=== PATIENT | female | born 1945 | race Caucasian/White ===

== ENCOUNTER 2016-08-15 18:30 | Emergency (ER) | payer MEDICARE, OTHER ==
[2016-08-15] MEDS ORDERED: IPRATROPIUM/ALBUTEROL 0.5-2.5 MG/3 ML AMPUL NEB ONE ×2 (19:26→20:21)
--- NOTE | 2016-08-15 19:31 | ER Document Report ---
ED Respiratory Problem - General Chief Complaint: Shortness Of Breath Stated Complaint: DIFFICULTY BREATHING Mode of Arrival: Ambulatory Information source: Patient TRAVEL OUTSIDE OF THE [place] IN LAST 30 DAYS: No - HPI Patient complains to provider of: Short of breath Notes: The patient arrives with complaints of shortness of breath and cough. Patient states that for the last 4-5 days she has had a deep cough and felt short of breath. Patient has a history of COPD. She denies any chest pain, but does complain of some tightness in the chest. She denies any numbness, tingling, weakness. She complains of nausea, but denies any vomiting or diarrhea. He denies any abdominal pain. She has complaints of generalized weakness and states that she has not been eating as well as normal. Patient reports having from surgery approximately 8 weeks ago, she also reports 3-1/[address] [facility] here. She denies any history of DVT or PE. She denies any active cancer history, she states that she is in remission for non-Hodgkin's lymphoma approximately 8 years ago. She is on no active cancer treatment. She is not on hormones. Patient has a history of A. fib intermittently, she is not in A. fib at this time. She is not on anticoagulants. She denies any leg pain or swelling. She denies any rashes. She denies any history of congestive heart failure. Shortness breath is worse with exertion, nothing really seems to make it better. - Related Data Allergies/Adverse Reactions: Beta-Blockers (Beta-Adrenergic Bloc Allergy (Verified 03/24/15 15:21) codeine [Codeine] Allergy (Verified 03/24/15 15:21) haloperidol [From Haldol] Allergy (Verified 03/24/15 15:21) haloperidol lactate [From Haldol] Allergy (Verified 03/24/15 15:21) Sulfa (Sulfonamide Antibiotics) Allergy (Verified 03/24/15 15:21) zolpidem tartrate [From Ambien] Allergy (Verified 03/24/15 15:21) Past Medical History - Social History Smoking Status: Unknown if Ever Smoked Chew tobacco use (# tins/day): No Frequency of alcohol use: Occasional Drug Abuse: Marijuana Family History: Reviewed & Not Pertinent - Past Medical History Cardiac Medical History: Reports: Hx Hypertension, Hx Heart Murmur Renal/ Medical History: Denies: Hx Peritoneal Dialysis GI Medical History: Reports: Hx Gastroesophageal Reflux Disease Past Surgical History: Reports: Hx Abdominal Surgery - gastric bypass. tummy tuck - Immunizations Hx Diphtheria, Pertussis, Tetanus Vaccination: Yes Review of Systems - Review of Systems -: Yes All other systems reviewed and negative Physical Exam - Vital signs Vitals: Temp Pulse Resp BP Pulse Ox 98.1 F 84 18 90/67 L 97 08/15/16 18:34 08/15/16 18:34 08/15/16 18:34 08/15/16 18:34 08/15/16 18:34 - Notes Notes: GENERAL: alert, cooperative, nontoxic, no distress. HEAD: normocephalic, atraumatic EYES: conjunctiva pink without discharge, no external redness or swelling. EARS: no external swelling, no external redness NOSE: atraumatic, no external swelling MOUTH/THROAT: mucous membranes moist and pink, posterior pharynx without erythema, swelling, exudate. No trismus or drooling. NECK: soft, supple, full range of motion, no meningismus. CHEST: no distress, fine crackles with wheezing on the left. Good air movement. Right lung appears clear at this time. CARDIAC: regular rate and rhythm, no murmur, normal capillary refill, normal pulses. Trace edema to bilateral lower extremities. ABDOMEN: Soft, nontender. BACK: full range of motion, no CVA tenderness. EXTREMITIES: full range of motion of all extremities. No redness, no swelling. NEURO: alert and oriented 3, no focal deficits, full range of motion of all extremities. PYSCH: appropriate mood, affect. Patient is cooperative. SKIN: pink, warm, dry, no rash. Course - Re-evaluation Re-evalutation: 08/15/16 20:44 Patient resting comfortably at this time. Vitals remained stable. Chest x-ray shows no acute abnormalities. Due to the patient's recent surgery as well as her 3 [address] ride and her complaints of shortness of breath without obvious findings on her x-ray, a CTA of the chest has been ordered to rule out PE or other source of her symptoms. Patient was updated with this information. We' ll continue to monitor. 08/15/16 23:53 Patient feeling well at this time. Her vitals been stable since she's been here with no hypoxia. Patient's had no chest pain. Her EKG shows no obvious abnormalities. Troponin is negative. Chest x-ray is nonacute. CT of the pulmonary artery shows no PE with signs of bronchitis and pneumonitis. Patient states that she feels well and would like to go home. She was offered admission but declined at this time. This point the patient will be discharged home on steroids and Levaquin. Follow up with her doctor at the next available appointment, sooner for worsening shortness of breath, chest pain, fever, difficulty breathing, or any further concerns. The patient's emergency department workup and current diagnosis were explained to the patient and or family. Follow-up instructions were provided. Medications if prescribed were discussed. Instructions for when to return to the emergency department including specific worrisome symptoms were discussed with the patient and/or family. - Vital Signs Vital signs: Temp Pulse Resp BP Pulse Ox 98.1 F 84 18 122/98 H 95 08/15/16 18:34 08/15/16 18:34 08/15/16 20:02 08/15/16 19:57 08/15/16 20:02 - Laboratory Result Diagrams: 08/15/16 19:05 08/15/16 19:05 Laboratory results interpreted by me: 08/15/16 08/15/16 08/15/16 19:05 19:05 19:05 Monocytes % 14.0 H Direct Bilirubin 0.5 H AST 62 H Alkaline Phosphatase 172 H NT-Pro-B Natriuret Pep 1450 H Albumin 3.2 L - Diagnostic Test Radiology reviewed: Image reviewed, Reports reviewed - Chest x-ray without acute findings. CTA of the chest shows no PE with bronchitis and atypical pneumonitis. - EKG Interpretation by Pr EKG shows normal: Sinus rhythm, ST-T Waves Rate: Normal [place]/QRS: LBBB When compared to previous EKG there are: Previous EKG unavailable Discharge - Discharge Clinical Impression: COPD exacerbation, Pneumonitis Condition: Stable Disposition: HOME, SELF-CARE Instructions: Chronic Obstructive Lung Disease ([facility]), Pneumonia ([facility]) Additional Instructions: Take medications as prescribed. Follow-up with your family doctor at the next available appointment for reevaluation. Follow-up sooner for chest pain, worsening shortness of breath, difficulty breathing, high fever, or any further concerns. Prescriptions: Levofloxacin [Levaquin 750 mg Tablet] 750 mg PO DAILY #5 tablet Prednisone 60 mg PO DAILY #15 tablet
[2016-08-15 19:33] LABS: ABSOLUTE EOSINOPHILS # (AUTO) 0.1 10^3/uL (0.0-0.6); ABSOLUTE LYMPHOCYTES (AUTO) 1.7 10^3/uL (0.5-4.7); ABSOLUTE NEUT (AUTO) 4.5 10^3/uL (1.7-8.2); BASOPHILS % (AUTO) 0.4 % (0-2); EOSINOPHILS % (AUTO) 1.6 % (0-6); HEMATOCRIT 43.7 % (36.0-47.0); HGB HCT DIFFERENCE 1.3; LYMPHOCYTES % (AUTO) 22.6 % (13-45); MEAN CORPUSCULAR HEMOGLOBIN 32.8 pg (27.0-33.4); MEAN CORPUSCULAR HGB CONC 34.2 g/dL (32.0-36.0); MEAN CORPUSCULAR VOLUME 96 fl (80-97); RED BLOOD COUNT 4.56 10^6/uL (3.72-5.28); RED CELL DISTRIBUTION WIDTH 13.8 % (11.5-14.0); SEGMENTED NEUTROPHILS % (AUTO) 61.4 % (42-78); WHITE BLOOD COUNT 7.4 10^3/uL (4.0-10.5)
[2016-08-15 19:48] LABS: ALANINE AMINOTRANSFERASE 31 U/L (9-52); ALBUMIN 3.2 g/dL (3.5-5.0); ALKALINE PHOSPHATASE 172 U/L (38-126); ANION GAP 10 (5-19); ASPARTATE AMINO TRANSFERASE 62 U/L (14-36); BILIRUBIN,DIRECT 0.5 mg/dL (0.0-0.4); BILIRUBIN,TOTAL 1.1 mg/dL (0.2-1.3); BLOOD UREA NITROGEN 18 mg/dL (7-20); CARBON DIOXIDE 29 mmol/L (22-30); CHLORIDE 101 mmol/L (98-107); CREATINE KINASE 61 U/L (30-135); GLUCOSE 94 mg/dL (75-110); POTASSIUM 3.7 mmol/L (3.6-5.0); SODIUM 139.9 mmol/L (137-145); TOTAL PROTEIN 6.5 g/dL (6.3-8.2)
[2016-08-15 19:59] LABS: CREATINE KINASE MB 1.57 ng/mL (<4.55)
[2016-08-15 20:00] LABS: TROPONIN I < 0.012 ng/mL
--- NOTE | 2016-08-15 21:20 | EKG REPORT ---
SEVERITY:- ABNORMAL ECG - SINUS OR ECTOPIC ATRIAL RHYTHM IVCD, CONSIDER ATYPICAL LBBB : Confirmed by: Jonny Hernandez MD 15-Aug-2016 21:19:56
[2016-08-15] MEDS ORDERED: LEVOFLOXACIN 750 MG TABLET PO ONE (23:51)
[2016-08-15] MEDS ORDERED: METHYLPREDNISOLONE INJ 125 MG/2 ML SDV IV ONE (23:51)
[2016-08-16 01:14] VITALS: BP 105/64
== END 2016-08-16 00:15 | disposition home or self-care (01) ==
LOC: ER 18:30
DX: J44.1 Chronic obstructive pulmonary disease with (acute) exacerbation (principal); J68.0 Bronchitis and pneumonitis due to chemicals, gases, fumes and vapors; R06.02 Shortness of breath; R05 Cough; R07.9 Chest pain, unspecified; R11.0 Nausea; R53.1 Weakness
CPT/HCPCS: 93005; 94640; 99285; 96374; 36415; 82553; 82550; 85025; 80053; 84484; 83880; 71020; 71275; 93010; J2930; A9270 ×2; J7620

== ENCOUNTER 2017-06-15 23:36 | Inpatient (IN) | payer MEDICARE, OTHER ==
[2017-06-15] MEDS ORDERED: IPRATROPIUM/ALBUTEROL 0.5-2.5 MG/3 ML AMPUL NEB ONE (23:42)
[2017-06-15] MEDS ORDERED: METHYLPREDNISOLONE INJ 125 MG/2 ML SDV IV ONE (23:45)
--- NOTE | 2017-06-15 23:45 | ER Document Report ---
ED General - General Chief Complaint: Respiratory Distress Stated Complaint: DIFFICULTY BREATHING Time Seen by Provider: 06/15/17 23:41 Notes: Patient is a 72-year-old female who presents with difficulty breathing. She has had subjective fevers at home. She has been coughing last few days. Denies to have more trouble breathing woke up her family. She was noted to have pulse ox in the 70s per the family. They placed oxygen in front of her face. Paramedics arrived her oxygen saturation was in the 60s. They placed her on CPAP. She improved greatly on the CPAP. She has a lot of tightness and wheezing throughout her lung reilly. She denies history of smoking. Unclear if she has a history of asthma. Patient admits to just some slight chest tightness. She denies any vomiting. No abdominal pain. No other complaints at this time. TRAVEL OUTSIDE OF THE [place] IN LAST 30 DAYS: No - Related Data Allergies/Adverse Reactions: Beta-Blockers (Beta-Adrenergic Bloc Allergy (Verified 06/16/17 00:23) codeine [Codeine] Allergy (Verified 06/16/17 00:23) haloperidol [From Haldol] Allergy (Verified 06/16/17 00:23) haloperidol lactate [From Haldol] Allergy (Verified 06/16/17 00:23) Sulfa (Sulfonamide Antibiotics) Allergy (Verified 06/16/17 00:23) zolpidem tartrate [From Ambien] Allergy (Verified 06/16/17 00:23) Past Medical History - Social History Smoking Status: Never Smoker Frequency of alcohol use: None Drug Abuse: None Family History: Reviewed & Not Pertinent - Past Medical History Cardiac Medical History: Reports: Hx Hypertension, Hx Heart Murmur Renal/ Medical History: Denies: Hx Peritoneal Dialysis GI Medical History: Reports: Hx Gastroesophageal Reflux Disease Past Surgical History: Reports: Hx Abdominal Surgery - gastric bypass. tummy tuck - Immunizations Hx Diphtheria, Pertussis, Tetanus Vaccination: Yes Review of Systems - Review of Systems Notes: My Normal Review Basic REVIEW OF SYSTEMS: CONSTITUTIONAL : Subjective fevers EENT: Denies eye, ear, throat, or mouth pain or symptoms. Denies nasal or sinus congestion. CARDIOVASCULAR: Chest tightness RESPIRATORY: Difficulty breathing wheezing. Cough. GASTROINTESTINAL: Denies abdominal pain. Denies nausea, vomiting, or diarrhea. Denies constipation. Last BM: MUSCULOSKELETAL: Denies neck or back pain or joint pain or swelling. SKIN: Denies rash or skin lesions. NEUROLOGICAL: Denies altered mental status or loss of consciousness. Denies headache. Denies weakness or paralysis or loss of use of either side. Denies problems with gait or speech. Denies sensory or motor loss. ALL OTHER SYSTEMS REVIEWED AND NEGATIVE. Physical Exam - Vital signs Vitals: Pulse Resp 102 H 26 H 06/15/17 23:40 06/15/17 23:40 - Notes Notes: General Appearance: Well nourished, alert, cooperative, moderate acute distress , no obvious discomfort. On CPAP via ambulance. Vitals: reviewed, See vital signs table. Head: no swelling or tenderness to the head Eyes: PERRL, EOMI, Conjuctiva clear Mouth: No decreasd moisture Throat: No tonsillar inflammation, No airway obstruction, No lymphadenopathy Neck: Supple, no neck tenderness, No thyromegaly Lungs: Diffuse wheezing with fair air exchange. Heart: Normal rate, Regular rythm, No murmur, no rub Abdomen: Normal BS, soft, No rigidity, No abdominal tenderness, No guarding, no rebound, Extremities: strength 5/5 in all extremities, good pulses in all extremities, no swelling or tenderness in the extremities Skin: warm, dry, appropriate color, no rash Neuro: speech clear, oriented x 3, normal affect, responds appropriately to questions. Course - Re-evaluation Re-evalutation: 06/16/17 00:05 Patient's chest x-ray is consistent with pneumonia. I have ordered Levaquin. 06/16/17 01:14 Patient looks very well on exam after being on the BiPAP. Her lung rielly are clear. Chest x-ray does show multifocal pneumonia. She started Levaquin because this appears to be community acquired and that she has not been hospitalized recently. She is now speaking in full sentences and says she feels very well. I spoke with the hospitalist, Dr. Moroe, who agrees to admit the patient. Dictation of this chart was performed using voice recognition software; therefore, there may be some unintended grammatical errors. - Vital Signs Vital signs: Temp Pulse Resp BP Pulse Ox 97.9 F 102 H 14 122/83 96 06/16/17 00:42 06/15/17 23:40 06/16/17 00:50 06/16/17 00:01 06/16/17 00:01 - Laboratory Result Diagrams: 06/15/17 23:45 06/16/17 00:15 Laboratory results interpreted by me: 06/15/17 06/16/17 23:45 00:15 MCV 98 H RDW 14.8 H Plt Count 125 L Glucose 174 H Calcium 8.3 L Total Protein 5.1 L Albumin 2.9 L - EKG Interpretation by Me Additional EKG results interpreted by me: 06/16/17 00:00 EKG is reviewed and interpreted by me. EKG shows A. fib with rate [address] segment changes. Patient does have a left bundle branch block which is unchanged comparison to her previous EKG from August 15, 2016. QRS duration and QTc intervals are prolonged. Discharge - Discharge Clinical Impression: Hypoxemia Pneumonia Qualifiers: Pneumonia type: due to unspecified organism Laterality: bilateral Lung location : unspecified part of lung Qualified Code(s): J18.9 - Pneumonia, unspecified organism Condition: Stable Disposition: ADMITTED INPATIENT Admitting Provider: Hospitalist Unit Admitted: Telemetry
[2017-06-16 00:04] LABS: ABSOLUTE EOSINOPHILS # (AUTO) 0.1 10^3/uL (0.0-0.6); ABSOLUTE MONOCYTES (AUTO) 0.4 10^3/uL (0.1-1.4); ABSOLUTE NEUT (AUTO) 3.5 10^3/uL (1.7-8.2); BASOPHILS % (AUTO) 0.5 % (0-2); EOSINOPHILS % (AUTO) 1.2 % (0-6); HEMATOCRIT 44.4 % (36.0-47.0); HEMOGLOBIN 14.8 g/dL (12.0-15.5); LYMPHOCYTES % (AUTO) 33.2 % (13-45); MEAN CORPUSCULAR HEMOGLOBIN 32.7 pg (27.0-33.4); MEAN CORPUSCULAR HGB CONC 33.3 g/dL (32.0-36.0); MEAN CORPUSCULAR VOLUME 98 fl (80-97); MONOCYTES % (AUTO) 7.4 % (3-13); PLATELET COUNT 125 10^3/uL (150-450); RED BLOOD COUNT 4.52 10^6/uL (3.72-5.28); RED CELL DISTRIBUTION WIDTH 14.8 % (11.5-14.0); SEGMENTED NEUTROPHILS % (AUTO) 57.7 % (42-78); TOTAL CELLS COUNTED % (AUTO) 100 %; WHITE BLOOD COUNT 6.1 10^3/uL (4.0-10.5)
[2017-06-16] MEDS ORDERED: LEVOFLOXACIN 750 MG/D5W RTU 750 MG/150 ML RTUPB IV ONE (00:05)
[2017-06-16 00:06] LABS: VENOUS BLOOD PCO2 51.6 mmHg (35-63); VENOUS BLOOD PH 7.3 (7.30-7.42)
[2017-06-16 00:11] LABS: INTERNATIONAL RATION (INR) 0.94; PROTHROMBIN TIME 13.3 SEC (11.4-15.4)
[2017-06-16] MEDS: MAGNESIUM SULFATE/D5W 1 GM/100 ML RTUPB IV SCH ×2 (00:12→01:19)
--- NOTE | 2017-06-16 00:24 | RADIOLOGY REPORT (SQ) ---
EXAM DESCRIPTION: CHEST SINGLE VIEW CLINICAL HISTORY: 72 years, Female, resp distress COMPARISON: CR and CT August 15, 2016 NUMBER OF VIEWS: 1 TECHNIQUE: AP portable upright LIMITATIONS: None. FINDINGS: Moderate multifocal opacities involving bilateral mid lungs and right apex, prominent cardiac silhouette, and intact bony thorax. IMPRESSION: Multifocal pneumonia pattern.
[2017-06-16 00:42] LABS: ALANINE AMINOTRANSFERASE 32 U/L (9-52); ALBUMIN 2.9 g/dL (3.5-5.0); ALKALINE PHOSPHATASE 108 U/L (38-126); ANION GAP 6 (5-19); ASPARTATE AMINO TRANSFERASE 32 U/L (14-36); BILIRUBIN,DIRECT 0.2 mg/dL (0.0-0.4); BILIRUBIN,TOTAL 0.4 mg/dL (0.2-1.3); BLOOD UREA NITROGEN 15 mg/dL (7-20); CALCIUM 8.3 mg/dL (8.4-10.2); CARBON DIOXIDE 28 mmol/L (22-30); CHLORIDE 107 mmol/L (98-107); CREATINE KINASE 44 U/L (30-135); GLUCOSE 174 mg/dL (75-110); POTASSIUM 4.1 mmol/L (3.6-5.0); SODIUM 141.1 mmol/L (137-145); TOTAL PROTEIN 5.1 g/dL (6.3-8.2)
[2017-06-16 00:53] LABS: CREATINE KINASE MB 1.33 ng/mL (<4.55)
[2017-06-16 00:56] LABS: TROPONIN I 0.046 ng/mL
[2017-06-16] MEDS ORDERED: HYDRALAZINE HCL INJ/PF 20 MG/1 ML SDV IV PRN (01:15)
[2017-06-16] MEDS ORDERED: ACETAMINOPHEN 325 MG TABLET PO PRN (01:15)
[2017-06-16] MEDS ORDERED: CHLORPHENIRAMINE MALEATE 4 MG TABLET PO ONE (01:15)
[2017-06-16] MEDS ORDERED: GUAIFENESIN SYRP 200 MG/10 ML UDC PO PRN (01:16)
[2017-06-16] MEDS ORDERED: IPRATROPIUM/ALBUTEROL 0.5-2.5 MG/3 ML AMPUL NEB PRN (01:16)
[2017-06-16] MEDS: IPRATROPIUM/ALBUTEROL 0.5-2.5 MG/3 ML AMPUL NEB SCH ×4 (01:59→21:48)
[2017-06-16] MEDS ORDERED: CHLORPHENIRAMINE MALEATE 4 MG TABLET ONE (02:20)
[2017-06-16] MEDS ORDERED: CEFEPIME 1 GM/D5W RTU 1 GM/50 ML RTUPB IV ONE (03:40)
[2017-06-16 04:58] LABS: ABSOLUTE LYMPHOCYTES (AUTO) 0.4 10^3/uL (0.5-4.7); ABSOLUTE MONOCYTES (AUTO) 0.3 10^3/uL (0.1-1.4); ABSOLUTE NEUT (AUTO) 4.6 10^3/uL (1.7-8.2); BASOPHILS % (AUTO) 0.2 % (0-2); EOSINOPHILS % (AUTO) 0.1 % (0-6); HEMATOCRIT 42.3 % (36.0-47.0); LYMPHOCYTES % (AUTO) 8.3 % (13-45); MEAN CORPUSCULAR HEMOGLOBIN 32.1 pg (27.0-33.4); MEAN CORPUSCULAR HGB CONC 33.1 g/dL (32.0-36.0); MEAN CORPUSCULAR VOLUME 97 fl (80-97); MONOCYTES % (AUTO) 5.6 % (3-13); PLATELET COUNT 114 10^3/uL (150-450); RED BLOOD COUNT 4.35 10^6/uL (3.72-5.28); RED CELL DISTRIBUTION WIDTH 14.2 % (11.5-14.0); SEGMENTED NEUTROPHILS % (AUTO) 85.8 % (42-78); TOTAL CELLS COUNTED % (AUTO) 100 %; WHITE BLOOD COUNT 5.4 10^3/uL (4.0-10.5)
[2017-06-16 05:00] LABS: ANION GAP 6 (5-19); BLOOD UREA NITROGEN 16 mg/dL (7-20); CALCIUM 8.6 mg/dL (8.4-10.2); CARBON DIOXIDE 29 mmol/L (22-30); CHLORIDE 105 mmol/L (98-107); GLUCOSE 169 mg/dL (75-110); POTASSIUM 4.4 mmol/L (3.6-5.0); SODIUM 140.2 mmol/L (137-145)
--- NOTE | 2017-06-16 05:22 | PDOC H&P ---
History of Present Illness Admission Date/PCP: 06/16/17 01:19 Patient complains of: Shortness of breath and cough History of Present Illness: RADHA LAGUERRE is a 72 year old female with a past medical history of diabetes, hypertension, obesity, atrial fibrillation, COPD and obstructive sleep apnea. Patient presents with 3-4 days of shortness of breath, nonproductive cough, subjective fevers and fatigue prompting a call to EMS who found her with oxygen saturation of 60% on room air. She is placed on oxygen and BiPAP brought to the emergency room for evaluation found to have bilateral wheezing and rhonchi and a chest x-ray with multifocal pneumonia. She started on empiric antibiotics and referred to the hospitalist for admission. She denies recent antibiotic use, infectious contacts or chest pain. Past Medical History Cardiac Medical History: Reports: Atrial Fibrillation, Hypertension, Heart Murmur Pulmonary Medical History: Reports: Chronic Obstructive Pulmonary Disease (COPD) GI Medical History: Reports: Gastroesophageal Reflux Disease Social History Information Source: Patient Lives with: Family Smoking Status: Never Smoker Frequency of Alcohol Use: None Hx Recreational Drug Use: No - Advance Directive Resuscitation Status: Full Code Family History Family History: COPD Parental Family History Reviewed: Yes Children Family History Reviewed: Yes Sibling(s) Family History Reviewed.: Yes Medication/Allergy Home Medications: Amiodarone HCl [Cordarone 200 mg Tablet] 200 mg PO DAILY 06/16/17 Aspirin [Aspirin 81 mg Chewable Tablet] 81 mg PO DAILY 06/16/17 Aspirin/Caffeine [Bc Arthritis Powder Packet] 1 packet PO ASDIR PRN 06/16/17 Buspirone HCl 15 mg PO BID 06/16/17 Carvedilol 6.25 mg PO BID 06/16/17 Diphenhydramine HCl 25 mg PO ASDIR PRN 06/16/17 Escitalopram Oxalate 20 mg PO DAILY 06/16/17 Fluticasone/Vilanterol [Breo Ellipta 100-25 Mcg INH] 1 puff IH DAILY 06/16/17 Furosemide 20 mg PO DAILY 06/16/17 Lactobacillus Combination No.4 [Probiotic] 1 each PO ASDIR 06/16/17 Levothyroxine Sodium 125 mcg PO DAILY 06/16/17 Magnesium Oxide [Magnesium] 400 mg PO BID 06/16/17 Montelukast Sodium 10 mg PO QHS 06/16/17 Multivit-Minerals/Folic Acid [Centrum Multigummies] 80 mcg PO ASDIR PRN Naproxen Sod/Diphenhydramine [Aleve Pm Caplet] 1 each PO ASDIR PRN 06/16/17 Naproxen Sodium [Aleve] 220 mg PO ASDIR PRN 06/16/17 Oxycodone HCl [Oxycontin] 30 mg PO BID 06/16/17 Pantoprazole Sodium 40 mg PO BID 06/16/17 Allergies/Adverse Reactions: Beta-Blockers (Beta-Adrenergic Bloc Allergy (Verified 06/16/17 00:23) codeine [Codeine] Allergy (Verified 06/16/17 00:23) haloperidol [From Haldol] Allergy (Verified 06/16/17 00:23) haloperidol lactate [From Haldol] Allergy (Verified 06/16/17 00:23) Sulfa (Sulfonamide Antibiotics) Allergy (Verified 06/16/17 00:23) zolpidem tartrate [From Ambien] Allergy (Verified 06/16/17 00:23) Review of Systems Constitutional: ABSENT: chills, fever(s), headache(s), weight gain, weight loss Eyes: ABSENT: visual disturbances Ears: ABSENT: hearing changes Cardiovascular: ABSENT: chest pain, dyspnea on exertion, edema, orthropnea, palpitations Respiratory: ABSENT: cough, hemoptysis Gastrointestinal: ABSENT: abdominal pain, constipation, diarrhea, hematemesis, hematochezia, nausea, vomiting Genitourinary: ABSENT: dysuria, hematuria Musculoskeletal: ABSENT: joint swelling Integumentary: ABSENT: rash, wounds Neurological: ABSENT: abnormal gait, abnormal speech, confusion, dizziness, focal weakness, syncope Psychiatric: ABSENT: anxiety, depression, homidical ideation, suicidal ideation Endocrine: ABSENT: cold intolerance, heat intolerance, polydipsia, polyuria Hematologic/Lymphatic: ABSENT: easy bleeding, easy bruising Physical Exam Vital Signs: Temp Pulse Resp BP Pulse Ox 97.9 F 99 15 101/69 98 06/16/17 00:42 06/16/17 01:59 06/16/17 04:42 06/16/17 04:42 06/16/17 04:42 General appearance: PRESENT: cooperative, mild distress, morbidly obese Head exam: PRESENT: atraumatic, normocephalic Eye exam: PRESENT: conjunctiva pink, EOMI, PERRLA. ABSENT: scleral icterus Ear exam: PRESENT: normal external ear exam Mouth exam: PRESENT: moist, tongue midline Neck exam: ABSENT: carotid bruit, JVD, lymphadenopathy, thyromegaly Respiratory exam: PRESENT: accessory muscle use, prolonged expiratory phas, rales, retraction, rhonchi, symmetrical, tachypnea Cardiovascular exam: PRESENT: RRR. ABSENT: diastolic murmur, rubs, systolic murmur Pulses: PRESENT: normal dorsalis pedis pul Vascular exam: PRESENT: normal capillary refill GI/Abdominal exam: PRESENT: normal bowel sounds, soft. ABSENT: distended, guarding, mass, organolmegaly, rebound, tenderness Rectal exam: PRESENT: deferred Extremities exam: PRESENT: full ROM. ABSENT: calf tenderness, clubbing, pedal edema Neurological exam: PRESENT: alert, awake, oriented to person, oriented to place , oriented to time, oriented to situation, CN II-XII grossly intact. ABSENT: motor sensory deficit Psychiatric exam: PRESENT: appropriate affect, normal mood. ABSENT: homicidal ideation, suicidal ideation Skin exam: PRESENT: dry, intact, warm. ABSENT: cyanosis, rash Results Laboratory Results: 06/16/17 04:25 06/16/17 04:25 06/16/17 06/16/17 04:25 04:25 WBC 5.4 RBC 4.35 Hgb 14.0 Hct 42.3 MCV 97 MCH 32.1 MCHC 33.1 RDW 14.2 H Plt Count 114 L Seg Neutrophils % 85.8 H Lymphocytes % 8.3 L Monocytes % 5.6 Eosinophils % 0.1 Basophils % 0.2 Absolute Neutrophils 4.6 Absolute Lymphocytes 0.4 L Absolute Monocytes 0.3 Absolute Eosinophils 0.0 Absolute Basophils 0.0 Sodium 140.2 Potassium 4.4 Chloride 105 Carbon Dioxide 29 Anion Gap 6 BUN 16 Creatinine 0.69 Est GFR ( Amer) > 60 Est GFR (Non-Af Amer) > 60 Glucose 169 H Calcium 8.6 Impressions: Chest X-Ray 06/15/17 00:00 IMPRESSION: Multifocal pneumonia pattern. Assessment & Plan - Diagnosis (1) Pneumonia Qualifiers: Pneumonia type: due to unspecified organism Laterality: bilateral Lung location: unspecified part of lung Qualified Code(s): J18.9 - Pneumonia, unspecified organism Is this a current diagnosis for this admission?: Yes Plan: Pneumonia care set, cefepime initiated secondary to long QT's. Follow-up CBC and blood culture (2) COPD exacerbation Is this a current diagnosis for this admission?: Yes Plan: Albuterol and Atrovent, supplemental oxygen, incentive spirometry, flutter valve and BiPAP (3) Obstructive sleep apnea Is this a current diagnosis for this admission?: Yes Plan: BiPAP (4) Diabetes Is this a current diagnosis for this admission?: Yes Plan: Home regiment with exception to metformin and sliding scale insulin (5) Hypertension Is this a current diagnosis for this admission?: Yes Plan: Home regiment with as needed hydralazine - Time Time Spent: 30 to 50 Minutes - Inpatient Certification Medical Necessity: Need Close Monitoring Due to Risk of Patient Decompensation
[2017-06-16] MEDS: HEPARIN SOD (PORCINE) 5,000 UNIT/ML 1 ML SYRINGE SUBCUT SCH ×3 (06:06→21:34)
[2017-06-16] MEDS: LANSOPRAZOLE 30 MG TAB.RAP.DR PO SCH ×2 (06:06→18:34)
[2017-06-16] MEDS: LEVOTHYROXINE SODIUM 0.1 MG TABLET PO SCH (06:07)
[2017-06-16] MEDS: LEVOTHYROXINE SODIUM 0.025 MG TABLET PO SCH (06:07)
--- NOTE | 2017-06-16 09:26 | EKG REPORT ---
SEVERITY:- ABNORMAL ECG - ATRIAL FIBRILLATION LEFT BUNDLE BRANCH BLOCK : Confirmed by: Junior Werner 16-Jun-2017 09:25:57
[2017-06-16] MEDS: GUAIFENESIN 600 MG TABLET.SA PO SCH ×2 (10:41→21:35)
[2017-06-16] MEDS: CARVEDILOL 6.25 MG TABLET PO SCH ×2 (10:41→21:35)
[2017-06-16] MEDS: BUSPIRONE HCL 10 MG TABLET PO SCH ×2 (10:44→18:33)
[2017-06-16] MEDS: FUROSEMIDE 20 MG TABLET PO SCH (10:44)
[2017-06-16] MEDS: ASPIRIN 81 MG TABLET, CHEWABLE PO SCH (10:44)
[2017-06-16] MEDS: MAGNESIUM OXIDE 400 MG TABLET PO SCH ×2 (10:44→18:34)
[2017-06-16] MEDS: FLUTICASONE NASAL SPRAY 50 MCG/SPRY 120 SPRAY/16 GM NASL SCH ×2 (10:45→21:35)
[2017-06-16] MEDS: AMIODARONE HCL 200 MG TABLET PO SCH (10:45)
[2017-06-16] MEDS: ESCITALOPRAM OXALATE 10 MG TABLET PO SCH (10:51)
[2017-06-16] MEDS: MONTELUKAST SODIUM 10 MG TABLET PO SCH (21:35)
[2017-06-16] MEDS ORDERED: CEFEPIME 2 GM/D5W RTU 2 GM/50 ML RTUPB IV SCH (21:45)
--- NOTE | 2017-06-16 21:46 | PDOC PROGRESS REPORT ---
Subjective Progress Note for:: 06/16/17 Subjective:: Since a little better today. Breathing also slightly improved. Denies chest pain or palpitations. No fever or chills Reason For Visit: COPD EXACERBATION PNEUMONIA Physical Exam Vital Signs: Temp Pulse Resp BP Pulse Ox 99.1 F 74 18 116/69 96 06/16/17 16:57 06/16/17 19:27 06/16/17 16:57 06/16/17 16:57 06/16/17 18:29 Intake & Output 06/15/17 06/16/17 06/17/17 06:59 06:59 06:59 Weight 95.254 kg GEN: NAD, well-deloped, well-nourished NECK supple, no JVD CV: RRR, NL S1S2 LUNGS: Crackles present bases bilaterally ABDOMEN Soft, NT, +BS EXTERMITIES: No e/c/c NEURO: Alert, oriented Results Laboratory Results: 06/16/17 04:25 06/16/17 04:25 06/16/17 06/16/17 04:25 04:25 WBC 5.4 RBC 4.35 Hgb 14.0 Hct 42.3 MCV 97 MCH 32.1 MCHC 33.1 RDW 14.2 H Plt Count 114 L Seg Neutrophils % 85.8 H Lymphocytes % 8.3 L Monocytes % 5.6 Eosinophils % 0.1 Basophils % 0.2 Absolute Neutrophils 4.6 Absolute Lymphocytes 0.4 L Absolute Monocytes 0.3 Absolute Eosinophils 0.0 Absolute Basophils 0.0 Sodium 140.2 Potassium 4.4 Chloride 105 Carbon Dioxide 29 Anion Gap 6 BUN 16 Creatinine 0.69 Est GFR ( Amer) > 60 Est GFR (Non-Af Amer) > 60 Glucose 169 H Calcium 8.6 Impressions: Chest X-Ray 06/15/17 00:00 IMPRESSION: Multifocal pneumonia pattern. Assessment & Plan - Diagnosis (1) Pneumonia Qualifiers: Pneumonia type: due to unspecified organism Laterality: bilateral Lung location: unspecified part of lung Qualified Code(s): J18.9 - Pneumonia, unspecified organism Is this a current diagnosis for this admission?: Yes Plan: Cefepime secondary to QT prolongation. Monitor patient and consider broadening antibiotics if worsening or no improvement. (2) COPD exacerbation Is this a current diagnosis for this admission?: Yes Plan: Continue duo nebs. Prednisone as patient with wheezing. (3) Diabetes Is this a current diagnosis for this admission?: Yes Plan: Monitor blood sugars (4) Hypertension Is this a current diagnosis for this admission?: Yes (5) Hypoxemia Plan: Improved, continue to monitor. Continue O2. (6) Obstructive sleep apnea Is this a current diagnosis for this admission?: Yes Plan: BiPAP
[2017-06-16] MEDS ORDERED: LEVOFLOXACIN 750 MG/D5W RTU 750 MG/150 ML RTUPB IV SCH (22:00)
[2017-06-16] MEDS: CEFEPIME HCL 2 GM in DEXTROSE 5%-WATER 50 ML IV SCH (22:20)
[2017-06-16] MEDS: PREDNISONE 20 MG TABLET PO SCH (22:20)
[2017-06-16 22:28] LABS: HEMATOCRIT 39.5 % (36.0-47.0); HEMOGLOBIN 13.2 g/dL (12.0-15.5); MEAN CORPUSCULAR HEMOGLOBIN 32.1 pg (27.0-33.4); MEAN CORPUSCULAR HGB CONC 33.4 g/dL (32.0-36.0); MEAN CORPUSCULAR VOLUME 96 fl (80-97); PLATELET COUNT 102 10^3/uL (150-450); RED CELL DISTRIBUTION WIDTH 14.3 % (11.5-14.0); WHITE BLOOD COUNT 8.9 10^3/uL (4.0-10.5)
[2017-06-16 22:51] LABS: ANION GAP 5 (5-19); BLOOD UREA NITROGEN 16 mg/dL (7-20); CALCIUM 8.9 mg/dL (8.4-10.2); CARBON DIOXIDE 30 mmol/L (22-30); CHLORIDE 103 mmol/L (98-107); GLUCOSE 138 mg/dL (75-110); POTASSIUM 4.7 mmol/L (3.6-5.0); SODIUM 138.3 mmol/L (137-145)
[2017-06-16 23:05] LABS: ABSOLUTE LYMPHOCYTES# (MANUAL) 1.4 10^3/uL (0.5-4.7); ABSOLUTE MONOCYTES # (MANUAL) 0.4 10^3/uL (0.1-1.4); ABSOLUTE NEUTROPHILS# (MANUAL) 7.1 10^3/uL (1.7-8.2); BASOPHILS % (MANUAL) 0 % (0-2); EOSINOPHILS % (MANUAL) 0 % (0-6); LYMPHOCYTES % (MANUAL) 16 % (13-45); MONOCYTES % (MANUAL) 4 % (3-13); SEGMENTED NEUTROPHILS % (MAN) 80 % (42-78); TOTAL CELLS COUNTED 100
[2017-06-16 23:06] LABS: ANISOCYTOSIS SLIGHT; POIKILOCYTOSIS SLIGHT; TOXIC GRANULATION 1+
[2017-06-16 23:07] LABS: OVALOCYTES 1+; PLATELET COMMENT ADEQUATE; PLATELET LARGE PRESENT; SCHISTOCYTES 1+
[2017-06-17] MEDS: HEPARIN SOD (PORCINE) 5,000 UNIT/ML 1 ML SYRINGE SUBCUT SCH ×3 (00:56→21:29)
[2017-06-17] MEDS: IPRATROPIUM/ALBUTEROL 0.5-2.5 MG/3 ML AMPUL NEB SCH ×4 (01:02→20:14)
[2017-06-17] MEDS: LEVOTHYROXINE SODIUM 0.1 MG TABLET PO SCH (05:27)
[2017-06-17] MEDS: LANSOPRAZOLE 30 MG TAB.RAP.DR PO SCH ×2 (05:27→17:57)
[2017-06-17] MEDS: LEVOTHYROXINE SODIUM 0.025 MG TABLET PO SCH (05:28)
[2017-06-17 06:48] LABS: ABSOLUTE LYMPHOCYTES (AUTO) 1.1 10^3/uL (0.5-4.7); ABSOLUTE MONOCYTES (AUTO) 0.5 10^3/uL (0.1-1.4); ABSOLUTE NEUT (AUTO) 8.3 10^3/uL (1.7-8.2); BASOPHILS % (AUTO) 0.1 % (0-2); HEMATOCRIT 42.5 % (36.0-47.0); HEMOGLOBIN 14.3 g/dL (12.0-15.5); LYMPHOCYTES % (AUTO) 11.1 % (13-45); MEAN CORPUSCULAR HEMOGLOBIN 32.2 pg (27.0-33.4); MEAN CORPUSCULAR HGB CONC 33.6 g/dL (32.0-36.0); MEAN CORPUSCULAR VOLUME 96 fl (80-97); MONOCYTES % (AUTO) 5.2 % (3-13); PLATELET COUNT 115 10^3/uL (150-450); RED BLOOD COUNT 4.42 10^6/uL (3.72-5.28); RED CELL DISTRIBUTION WIDTH 14.5 % (11.5-14.0); SEGMENTED NEUTROPHILS % (AUTO) 83.6 % (42-78); TOTAL CELLS COUNTED % (AUTO) 100 %
[2017-06-17 07:01] LABS: ANION GAP 7 (5-19); BLOOD UREA NITROGEN 16 mg/dL (7-20); CARBON DIOXIDE 28 mmol/L (22-30); CHLORIDE 104 mmol/L (98-107); GLUCOSE 123 mg/dL (75-110); POTASSIUM 4.6 mmol/L (3.6-5.0); SODIUM 138.8 mmol/L (137-145)
[2017-06-17] MEDS: AMIODARONE HCL 200 MG TABLET PO SCH (10:38)
[2017-06-17] MEDS: BUSPIRONE HCL 10 MG TABLET PO SCH ×2 (10:39→17:57)
[2017-06-17] MEDS: PREDNISONE 20 MG TABLET PO SCH ×2 (10:39→21:28)
[2017-06-17] MEDS: FUROSEMIDE 20 MG TABLET PO SCH (10:39)
[2017-06-17] MEDS: GUAIFENESIN 600 MG TABLET.SA PO SCH ×2 (10:39→21:28)
[2017-06-17] MEDS: MAGNESIUM OXIDE 400 MG TABLET PO SCH ×2 (10:39→17:57)
[2017-06-17] MEDS: ASPIRIN 81 MG TABLET, CHEWABLE PO SCH (10:39)
[2017-06-17] MEDS: ESCITALOPRAM OXALATE 10 MG TABLET PO SCH (10:40)
[2017-06-17] MEDS: CEFEPIME HCL 2 GM in DEXTROSE 5%-WATER 50 ML IV SCH (10:40)
[2017-06-17] MEDS: FLUTICASONE NASAL SPRAY 50 MCG/SPRY 120 SPRAY/16 GM NASL SCH ×2 (10:40→21:29)
[2017-06-17] MEDS: CARVEDILOL 6.25 MG TABLET PO SCH ×2 (10:40→21:28)
[2017-06-17] MEDS ORDERED: ACETAMINOPHEN 325 MG TABLET PO PRN (14:00)
[2017-06-17] MEDS ORDERED: ONDANSETRON HCL INJ/PF 4 MG/2 ML SDV IV PRN (18:41)
--- NOTE | 2017-06-17 21:00 | PDOC PROGRESS REPORT ---
Subjective Progress Note for:: 06/17/17 Subjective:: Continues to do better every day. Breathing also slightly improved. Still requiring BiPAP, but denies chest pain or palpitations. No fever or chills Reason For Visit: COPD EXACERBATION PNEUMONIA Physical Exam Vital Signs: Temp Pulse Resp BP Pulse Ox 98.6 F 73 16 125/86 H 97 06/17/17 20:00 06/17/17 20:14 06/17/17 20:14 06/17/17 20:00 06/17/17 20:00 Intake & Output 06/16/17 06/17/17 06/18/17 06:59 06:59 06:59 Intake Total 400 720 Output Total 200 Balance 200 720 Weight 95.254 kg 92 kg GEN: NAD, well-developed, well-nourished NECK supple, no JVD CV: RRR, NL S1S2 LUNGS: Crackles present bases bilaterally ABDOMEN Soft, NT, +BS EXTERMITIES: No e/c/c NEURO: Alert, oriented Results Laboratory Results: 06/17/17 05:42 06/17/17 05:42 06/16/17 06/16/17 06/17/17 22:15 22:15 05:42 WBC 8.9 10.0 RBC 4.10 4.42 Hgb 13.2 14.3 Hct 39.5 42.5 MCV 96 96 MCH 32.1 32.2 MCHC 33.4 33.6 RDW 14.3 H 14.5 H Plt Count 102 L 115 L Seg Neutrophils % Not Reportable 83.6 H Lymphocytes % Not Reportable 11.1 L Monocytes % Not Reportable 5.2 Eosinophils % Not Reportable 0.0 Basophils % Not Reportable 0.1 Absolute Neutrophils Not Reportable 8.3 H Absolute Lymphocytes Not Reportable 1.1 Absolute Monocytes Not Reportable 0.5 Absolute Eosinophils Not Reportable 0.0 Absolute Basophils Not Reportable 0.0 Sodium 138.3 Potassium 4.7 Chloride 103 Carbon Dioxide 30 Anion Gap 5 BUN 16 Creatinine 0.66 Est GFR ( Amer) > 60 Est GFR (Non-Af Amer) > 60 Glucose 138 H Calcium 8.9 06/17/17 05:42 WBC RBC Hgb Hct MCV MCH MCHC RDW Plt Count Seg Neutrophils % Lymphocytes % Monocytes % Eosinophils % Basophils % Absolute Neutrophils Absolute Lymphocytes Absolute Monocytes Absolute Eosinophils Absolute Basophils Sodium 138.8 Potassium 4.6 Chloride 104 Carbon Dioxide 28 Anion Gap 7 BUN 16 Creatinine 0.62 Est GFR ( Amer) > 60 Est GFR (Non-Af Amer) > 60 Glucose 123 H Calcium 9.0 Impressions: Chest X-Ray 06/15/17 00:00 IMPRESSION: Multifocal pneumonia pattern. Assessment & Plan - Diagnosis (1) Pneumonia Qualifiers: Pneumonia type: due to unspecified organism Laterality: bilateral Lung location: unspecified part of lung Qualified Code(s): J18.9 - Pneumonia, unspecified organism Is this a current diagnosis for this admission?: Yes Plan: Cefepime secondary to QT prolongation. Continue to monitor patient and consider broadening antibiotics if worsening or no improvement. (2) COPD exacerbation Is this a current diagnosis for this admission?: Yes Plan: Continue duo nebs. Continue prednisone as patient with wheezing. (3) Diabetes Is this a current diagnosis for this admission?: Yes Plan: Continue to monitor blood sugars (4) Hypertension Is this a current diagnosis for this admission?: Yes Plan: Stable (5) Hypoxemia Is this a current diagnosis for this admission?: Yes Plan: Improved, continue to monitor. Continue O2, BiPAP as needed. (6) Obstructive sleep apnea Is this a current diagnosis for this admission?: Yes Plan: BiPAP
[2017-06-17] MEDS: CEFEPIME HCL 2 GM in DEXTROSE 5%-WATER 100 ML IV SCH (21:28)
[2017-06-17] MEDS: MONTELUKAST SODIUM 10 MG TABLET PO SCH (21:28)
[2017-06-17 22:20] LABS: ABSOLUTE LYMPHOCYTES (AUTO) 1.2 10^3/uL (0.5-4.7); ABSOLUTE MONOCYTES (AUTO) 0.6 10^3/uL (0.1-1.4); ABSOLUTE NEUT (AUTO) 8.9 10^3/uL (1.7-8.2); BASOPHILS % (AUTO) 0.1 % (0-2); HEMATOCRIT 42.6 % (36.0-47.0); HEMOGLOBIN 14.2 g/dL (12.0-15.5); LYMPHOCYTES % (AUTO) 11.1 % (13-45); MEAN CORPUSCULAR HEMOGLOBIN 32.3 pg (27.0-33.4); MEAN CORPUSCULAR HGB CONC 33.4 g/dL (32.0-36.0); MEAN CORPUSCULAR VOLUME 97 fl (80-97); MONOCYTES % (AUTO) 5.6 % (3-13); PLATELET COUNT 110 10^3/uL (150-450); RED BLOOD COUNT 4.41 10^6/uL (3.72-5.28); RED CELL DISTRIBUTION WIDTH 14.1 % (11.5-14.0); SEGMENTED NEUTROPHILS % (AUTO) 83.2 % (42-78); TOTAL CELLS COUNTED % (AUTO) 100 %; WHITE BLOOD COUNT 10.7 10^3/uL (4.0-10.5)
[2017-06-17 23:30] LABS: ANION GAP 5 (5-19); BLOOD UREA NITROGEN 21 mg/dL (7-20); CALCIUM 8.6 mg/dL (8.4-10.2); CARBON DIOXIDE 33 mmol/L (22-30); CHLORIDE 101 mmol/L (98-107); GLUCOSE 111 mg/dL (75-110); SODIUM 138.5 mmol/L (137-145)
[2017-06-18] MEDS: IPRATROPIUM/ALBUTEROL 0.5-2.5 MG/3 ML AMPUL NEB SCH ×4 (02:33→20:59)
[2017-06-18] MEDS: HEPARIN SOD (PORCINE) 5,000 UNIT/ML 1 ML SYRINGE SUBCUT SCH ×3 (05:14→21:45)
[2017-06-18 05:19] LABS: ABSOLUTE LYMPHOCYTES (AUTO) 0.8 10^3/uL (0.5-4.7); ABSOLUTE MONOCYTES (AUTO) 0.4 10^3/uL (0.1-1.4); ABSOLUTE NEUT (AUTO) 7.1 10^3/uL (1.7-8.2); BASOPHILS % (AUTO) 0.1 % (0-2); HEMATOCRIT 39.9 % (36.0-47.0); HEMOGLOBIN 13.4 g/dL (12.0-15.5); LYMPHOCYTES % (AUTO) 9.7 % (13-45); MEAN CORPUSCULAR HEMOGLOBIN 31.9 pg (27.0-33.4); MEAN CORPUSCULAR HGB CONC 33.6 g/dL (32.0-36.0); MEAN CORPUSCULAR VOLUME 95 fl (80-97); MONOCYTES % (AUTO) 5.2 % (3-13); PLATELET COUNT 103 10^3/uL (150-450); RED CELL DISTRIBUTION WIDTH 13.8 % (11.5-14.0); TOTAL CELLS COUNTED % (AUTO) 100 %; WHITE BLOOD COUNT 8.4 10^3/uL (4.0-10.5)
[2017-06-18 05:32] LABS: ANION GAP 7 (5-19); BLOOD UREA NITROGEN 19 mg/dL (7-20); CALCIUM 8.5 mg/dL (8.4-10.2); CARBON DIOXIDE 29 mmol/L (22-30); CHLORIDE 104 mmol/L (98-107); GLUCOSE 105 mg/dL (75-110); POTASSIUM 4.5 mmol/L (3.6-5.0); SODIUM 140.1 mmol/L (137-145)
[2017-06-18] MEDS: LEVOTHYROXINE SODIUM 0.025 MG TABLET PO SCH (05:48)
[2017-06-18] MEDS: LANSOPRAZOLE 30 MG TAB.RAP.DR PO SCH ×2 (05:48→18:27)
[2017-06-18] MEDS: LEVOTHYROXINE SODIUM 0.1 MG TABLET PO SCH (05:48)
[2017-06-18] MEDS: GUAIFENESIN 600 MG TABLET.SA PO SCH ×2 (09:34→21:57)
[2017-06-18] MEDS: CARVEDILOL 6.25 MG TABLET PO SCH ×2 (09:35→21:56)
[2017-06-18] MEDS: ASPIRIN 81 MG TABLET, CHEWABLE PO SCH (09:35)
[2017-06-18] MEDS: MAGNESIUM OXIDE 400 MG TABLET PO SCH ×2 (09:35→18:29)
[2017-06-18] MEDS: AMIODARONE HCL 200 MG TABLET PO SCH (09:36)
[2017-06-18] MEDS: BUSPIRONE HCL 10 MG TABLET PO SCH ×2 (09:36→18:29)
[2017-06-18] MEDS: PREDNISONE 20 MG TABLET PO SCH ×2 (09:36→21:56)
[2017-06-18] MEDS: FUROSEMIDE 20 MG TABLET PO SCH (09:37)
[2017-06-18] MEDS: FLUTICASONE NASAL SPRAY 50 MCG/SPRY 120 SPRAY/16 GM NASL SCH ×2 (09:37→21:56)
[2017-06-18] MEDS: ESCITALOPRAM OXALATE 10 MG TABLET PO SCH (09:37)
[2017-06-18] MEDS: CEFEPIME HCL 2 GM in DEXTROSE 5%-WATER 100 ML IV SCH ×2 (09:42→22:27)
--- NOTE | 2017-06-18 17:58 | PDOC PROGRESS REPORT ---
Subjective Progress Note for:: 06/18/17 Subjective:: Breathing continues to slowly improve. Still requiring BiPAP intermittently. Denies chest pain or palpitations. No fever or chills. No nausea or vomiting. Able to get up and walk to the bathroom on her own. Reason For Visit: COPD EXACERBATION PNEUMONIA Physical Exam Vital Signs: Temp Pulse Resp BP Pulse Ox 98.2 F 85 18 123/71 96 06/18/17 16:27 06/18/17 16:27 06/18/17 16:27 06/18/17 16:27 06/18/17 16:35 Intake & Output 06/17/17 06/18/17 06/19/17 06:59 06:59 06:59 Intake Total 400 1080 Output Total 200 Balance 200 1080 Weight 92 kg 96.8 kg GEN: NAD, well-developed, well-nourished NECK supple, no JVD CV: RRR, NL S1S2 LUNGS: Crackles present bases bilaterally, minimal wheezing bilaterally ABDOMEN Soft, NT, +BS EXTERMITIES: No e/c/c NEURO: Alert, oriented 3, no focal weakness Results Laboratory Results: 06/18/17 03:51 06/18/17 03:51 06/17/17 06/17/17 06/17/17 21:23 21:23 23:00 WBC 10.7 H RBC 4.41 Hgb 14.2 Hct 42.6 MCV 97 MCH 32.3 MCHC 33.4 RDW 14.1 H Plt Count 110 L Seg Neutrophils % 83.2 H Lymphocytes % 11.1 L Monocytes % 5.6 Eosinophils % 0.0 Basophils % 0.1 Absolute Neutrophils 8.9 H Absolute Lymphocytes 1.2 Absolute Monocytes 0.6 Absolute Eosinophils 0.0 Absolute Basophils 0.0 Sodium Cancelled 138.5 Potassium Cancelled 5.0 Chloride Cancelled 101 Carbon Dioxide Cancelled 33 H Anion Gap Cancelled 5 BUN Cancelled 21 H Creatinine Cancelled 0.79 Est GFR ( Amer) Cancelled > 60 Est GFR (Non-Af Amer) Cancelled > 60 Glucose Cancelled 111 H Calcium Cancelled 8.6 06/18/17 06/18/17 03:51 03:51 WBC 8.4 RBC 4.20 Hgb 13.4 Hct 39.9 MCV 95 MCH 31.9 MCHC 33.6 RDW 13.8 Plt Count 103 L Seg Neutrophils % 85.0 H Lymphocytes % 9.7 L Monocytes % 5.2 Eosinophils % 0.0 Basophils % 0.1 Absolute Neutrophils 7.1 Absolute Lymphocytes 0.8 Absolute Monocytes 0.4 Absolute Eosinophils 0.0 Absolute Basophils 0.0 Sodium 140.1 Potassium 4.5 Chloride 104 Carbon Dioxide 29 Anion Gap 7 BUN 19 Creatinine 0.67 Est GFR ( Amer) > 60 Est GFR (Non-Af Amer) > 60 Glucose 105 Calcium 8.5 Impressions: Chest X-Ray 06/15/17 00:00 IMPRESSION: Multifocal pneumonia pattern. Assessment & Plan - Diagnosis (1) Pneumonia Qualifiers: Pneumonia type: due to unspecified organism Laterality: bilateral Lung location: unspecified part of lung Qualified Code(s): J18.9 - Pneumonia, unspecified organism Is this a current diagnosis for this admission?: Yes Plan: Cefepime secondary to QT prolongation. Continue to monitor patient and consider broadening antibiotics if worsening or no improvement. Follow-up chest x-ray in a.m. (2) COPD exacerbation Is this a current diagnosis for this admission?: Yes Plan: Continue duo nebs. Continue prednisone. (3) Diabetes Is this a current diagnosis for this admission?: Yes Plan: Continue to monitor blood sugars (4) Hypertension Is this a current diagnosis for this admission?: Yes Plan: Stable (5) Hypoxemia Is this a current diagnosis for this admission?: Yes Plan: Improved, continue to monitor. Continue O2, BiPAP as needed. (6) Obstructive sleep apnea Is this a current diagnosis for this admission?: Yes Plan: BiPAP
[2017-06-18] MEDS: MONTELUKAST SODIUM 10 MG TABLET PO SCH (21:57)
[2017-06-19] MEDS: IPRATROPIUM/ALBUTEROL 0.5-2.5 MG/3 ML AMPUL NEB SCH ×4 (01:14→20:23)
[2017-06-19] MEDS: HEPARIN SOD (PORCINE) 5,000 UNIT/ML 1 ML SYRINGE SUBCUT SCH ×3 (05:25→21:11)
[2017-06-19] MEDS: LEVOTHYROXINE SODIUM 0.1 MG TABLET PO SCH (05:29)
[2017-06-19] MEDS: LANSOPRAZOLE 30 MG TAB.RAP.DR PO SCH ×2 (05:29→17:01)
[2017-06-19] MEDS: LEVOTHYROXINE SODIUM 0.025 MG TABLET PO SCH (05:29)
[2017-06-19 07:41] LABS: ABSOLUTE LYMPHOCYTES (AUTO) 0.9 10^3/uL (0.5-4.7); ABSOLUTE MONOCYTES (AUTO) 0.6 10^3/uL (0.1-1.4); ABSOLUTE NEUT (AUTO) 5.4 10^3/uL (1.7-8.2); BASOPHILS % (AUTO) 0.1 % (0-2); HEMATOCRIT 38.9 % (36.0-47.0); HEMOGLOBIN 13.1 g/dL (12.0-15.5); LYMPHOCYTES % (AUTO) 13.5 % (13-45); MEAN CORPUSCULAR HGB CONC 33.6 g/dL (32.0-36.0); MEAN CORPUSCULAR VOLUME 95 fl (80-97); MONOCYTES % (AUTO) 8.6 % (3-13); PLATELET COUNT 118 10^3/uL (150-450); RED BLOOD COUNT 4.09 10^6/uL (3.72-5.28); RED CELL DISTRIBUTION WIDTH 13.9 % (11.5-14.0); SEGMENTED NEUTROPHILS % (AUTO) 77.8 % (42-78); TOTAL CELLS COUNTED % (AUTO) 100 %; WHITE BLOOD COUNT 6.9 10^3/uL (4.0-10.5)
[2017-06-19 07:58] LABS: ANION GAP 5 (5-19); BLOOD UREA NITROGEN 16 mg/dL (7-20); CALCIUM 8.7 mg/dL (8.4-10.2); CARBON DIOXIDE 31 mmol/L (22-30); CHLORIDE 102 mmol/L (98-107); GLUCOSE 104 mg/dL (75-110); POTASSIUM 4.1 mmol/L (3.6-5.0); SODIUM 137.5 mmol/L (137-145)
--- NOTE | 2017-06-19 09:32 | RADIOLOGY REPORT (SQ) ---
EXAM DESCRIPTION: CHEST PA/LAT COMPLETED DATE/TIME: 06/19/2017 9:23 am REASON FOR STUDY: pneumonia, copd COMPARISON: 08/15/2016 EXAM PARAMETERS: NUMBER OF VIEWS: two views TECHNIQUE: Digital Frontal and Lateral radiographic views of the chest acquired. RADIATION DOSE: NA LIMITATIONS: none FINDINGS: LUNGS AND PLEURA: Patchy multifocal airspace opacities most notably involving the upper lo bes. Probable small bilateral pleural effusions. MEDIASTINUM AND HILAR STRUCTURES: No masses or contour abnormalities. HEART AND VASCULAR STRUCTURES: Mild cardiomegaly with prominence of the pulmonary vasculature. BONES: No acute findings. HARDWARE: None in the chest. OTHER: No other significant finding. IMPRESSION: PROMINENT PERIHILAR VASCULATURE WITH PATCHY MULTIFOCAL AIRSPACE DISEASE AND SMALL BILATE RAL PLEURAL EFFUSIONS. DIFFERENTIAL INCLUDES ASYMMETRIC PULMONARY EDEMA AND MULTIFOCAL PNEUMONIA. TECHNICAL DOCUMENTATION: JOB ID: [id number] [employer]- All Rights Reserved
[2017-06-19] MEDS: CEFEPIME HCL 2 GM in DEXTROSE 5%-WATER 100 ML IV SCH ×2 (09:45→21:16)
[2017-06-19] MEDS: FUROSEMIDE 20 MG TABLET PO SCH (09:45)
[2017-06-19] MEDS: GUAIFENESIN 600 MG TABLET.SA PO SCH ×2 (09:45→21:15)
[2017-06-19] MEDS: ESCITALOPRAM OXALATE 10 MG TABLET PO SCH (09:45)
[2017-06-19] MEDS: AMIODARONE HCL 200 MG TABLET PO SCH (09:45)
[2017-06-19] MEDS: CARVEDILOL 6.25 MG TABLET PO SCH ×2 (09:45→21:15)
[2017-06-19] MEDS: BUSPIRONE HCL 10 MG TABLET PO SCH ×2 (09:45→17:01)
[2017-06-19] MEDS: PREDNISONE 20 MG TABLET PO SCH ×2 (09:45→21:15)
[2017-06-19] MEDS: FLUTICASONE NASAL SPRAY 50 MCG/SPRY 120 SPRAY/16 GM NASL SCH ×2 (09:45→21:15)
[2017-06-19] MEDS: MAGNESIUM OXIDE 400 MG TABLET PO SCH ×2 (09:46→17:02)
[2017-06-19] MEDS: ASPIRIN 81 MG TABLET, CHEWABLE PO SCH (09:46)
[2017-06-19] MEDS ORDERED: DOXYCYCLINE HYCLATE 100 MG TABLET PO ONE (12:00)
--- NOTE | 2017-06-19 18:52 | PDOC PROGRESS REPORT ---
Subjective Progress Note for:: 06/19/17 Subjective:: Breathing continues to improve. Still requiring BiPAP intermittently, but much less so. Denies chest pain or palpitations. No fever or chills. No nausea or vomiting. Daughter at bedside Reason For Visit: COPD EXACERBATION PNEUMONIA Physical Exam Vital Signs: Temp Pulse Resp BP Pulse Ox 98.2 F 83 20 140/98 H 97 06/19/17 16:43 06/19/17 16:43 06/19/17 16:43 06/19/17 16:43 06/19/17 16:43 Intake & Output 06/18/17 06/19/17 06/20/17 06:59 06:59 06:59 Intake Total 1080 1174 600 Balance 1080 1174 600 Weight 96.8 kg 97.1 kg GEN: NAD, well-developed, well-nourished NECK supple, no JVD CV: RRR, NL S1S2 LUNGS: Crackles present bases bilaterally, good air movement ABDOMEN Soft, NT, +BS EXTERMITIES: No e/c/c NEURO: Alert, oriented 3, no focal weakness Results Laboratory Results: 06/19/17 06:18 06/19/17 06:18 06/19/17 06/19/17 06:18 06:18 WBC 6.9 RBC 4.09 Hgb 13.1 Hct 38.9 MCV 95 MCH 32.0 MCHC 33.6 RDW 13.9 Plt Count 118 L Seg Neutrophils % 77.8 Lymphocytes % 13.5 Monocytes % 8.6 Eosinophils % 0.0 Basophils % 0.1 Absolute Neutrophils 5.4 Absolute Lymphocytes 0.9 Absolute Monocytes 0.6 Absolute Eosinophils 0.0 Absolute Basophils 0.0 Sodium 137.5 Potassium 4.1 Chloride 102 Carbon Dioxide 31 H Anion Gap 5 BUN 16 Creatinine 0.61 Est GFR ( Amer) > 60 Est GFR (Non-Af Amer) > 60 Glucose 104 Calcium 8.7 Impressions: Chest X-Ray 06/19/17 07:00 IMPRESSION: PROMINENT PERIHILAR VASCULATURE WITH PATCHY MULTIFOCAL AIRSPACE DISEASE AND SMALL BILATERAL PLEURAL EFFUSIONS. DIFFERENTIAL INCLUDES ASYMMETRIC PULMONARY EDEMA AND MULTIFOCAL PNEUMONIA. Assessment & Plan - Diagnosis (1) Pneumonia Qualifiers: Pneumonia type: due to unspecified organism Laterality: bilateral Lung location: unspecified part of lung Qualified Code(s): J18.9 - Pneumonia, unspecified organism Is this a current diagnosis for this admission?: Yes Plan: On Cefepime and Doxycycline. Continue to monitor patient. (2) COPD exacerbation Is this a current diagnosis for this admission?: Yes Plan: Continue duo nebs. Continue prednisone. (3) Diabetes Is this a current diagnosis for this admission?: Yes Plan: Continue to monitor blood sugars (4) Hypertension Is this a current diagnosis for this admission?: Yes Plan: Stable (5) Hypoxemia Is this a current diagnosis for this admission?: Yes Plan: Improved, continue to monitor. Continue O2, BiPAP as needed. (6) Obstructive sleep apnea Is this a current diagnosis for this admission?: Yes Plan: BiPAP
[2017-06-19] MEDS: DOXYCYCLINE HYCLATE 100 MG TABLET PO SCH (21:15)
[2017-06-19] MEDS: MONTELUKAST SODIUM 10 MG TABLET PO SCH (21:15)
[2017-06-20] MEDS: IPRATROPIUM/ALBUTEROL 0.5-2.5 MG/3 ML AMPUL NEB SCH ×4 (01:15→19:50)
[2017-06-20] MEDS: HEPARIN SOD (PORCINE) 5,000 UNIT/ML 1 ML SYRINGE SUBCUT SCH ×3 (05:02→21:40)
[2017-06-20] MEDS: LEVOTHYROXINE SODIUM 0.025 MG TABLET PO SCH (05:23)
[2017-06-20] MEDS: LEVOTHYROXINE SODIUM 0.1 MG TABLET PO SCH (05:23)
[2017-06-20] MEDS: LANSOPRAZOLE 30 MG TAB.RAP.DR PO SCH ×2 (05:23→17:12)
[2017-06-20] MEDS: AMIODARONE HCL 200 MG TABLET PO SCH (09:40)
[2017-06-20] MEDS: BUSPIRONE HCL 10 MG TABLET PO SCH ×2 (09:40→17:13)
[2017-06-20] MEDS: FUROSEMIDE 20 MG TABLET PO SCH (09:40)
[2017-06-20] MEDS: CARVEDILOL 6.25 MG TABLET PO SCH ×2 (09:40→21:41)
[2017-06-20] MEDS: ESCITALOPRAM OXALATE 10 MG TABLET PO SCH (09:40)
[2017-06-20] MEDS: GUAIFENESIN 600 MG TABLET.SA PO SCH ×2 (09:41→21:40)
[2017-06-20] MEDS: PREDNISONE 20 MG TABLET PO SCH ×2 (09:41→21:41)
[2017-06-20] MEDS: MAGNESIUM OXIDE 400 MG TABLET PO SCH ×2 (09:41→17:13)
[2017-06-20] MEDS: FLUTICASONE NASAL SPRAY 50 MCG/SPRY 120 SPRAY/16 GM NASL SCH ×2 (09:41→21:41)
[2017-06-20] MEDS: DOXYCYCLINE HYCLATE 100 MG TABLET PO SCH ×2 (09:41→21:41)
[2017-06-20] MEDS: ASPIRIN 81 MG TABLET, CHEWABLE PO SCH (09:41)
[2017-06-20] MEDS: CEFEPIME HCL 2 GM in DEXTROSE 5%-WATER 100 ML IV SCH (09:41)
--- NOTE | 2017-06-20 15:33 | PDOC PROGRESS REPORT ---
Subjective Progress Note for:: 06/20/17 Subjective:: Breathing continues to improve. Still with cough, but nonproductive. Denies chest pain or palpitations. No fever or chills. No nausea or vomiting. Daughter at bedside Reason For Visit: COPD EXACERBATION PNEUMONIA Physical Exam Vital Signs: Temp Pulse Resp BP Pulse Ox 98.4 F 77 21 H 119/96 H 98 06/20/17 12:00 06/20/17 14:23 06/20/17 14:23 06/20/17 12:00 06/20/17 14:23 Intake & Output 06/19/17 06/20/17 06/21/17 06:59 06:59 06:59 Intake Total 1174 1317 Output Total 900 Balance 1174 417 Weight 97.1 kg 97.1 kg Results Laboratory Results: 06/19/17 06:18 06/19/17 06:18 Impressions: Chest X-Ray 06/19/17 07:00 IMPRESSION: PROMINENT PERIHILAR VASCULATURE WITH PATCHY MULTIFOCAL AIRSPACE DISEASE AND SMALL BILATERAL PLEURAL EFFUSIONS. DIFFERENTIAL INCLUDES ASYMMETRIC PULMONARY EDEMA AND MULTIFOCAL PNEUMONIA. Assessment & Plan - Diagnosis (1) Pneumonia Qualifiers: Pneumonia type: due to unspecified organism Laterality: bilateral Lung location: unspecified part of lung Qualified Code(s): J18.9 - Pneumonia, unspecified organism Is this a current diagnosis for this admission?: Yes Plan: On Cefepime and Doxycycline. Continue to monitor patient. (2) COPD exacerbation Is this a current diagnosis for this admission?: Yes Plan: Continue duo nebs. Continue prednisone. (3) Diabetes Is this a current diagnosis for this admission?: Yes Plan: Continue to monitor blood sugars (4) Hypertension Is this a current diagnosis for this admission?: Yes Plan: Stable (5) Hypoxemia Is this a current diagnosis for this admission?: Yes Plan: Improved, continue to monitor. Continue O2, BiPAP as needed. (6) Obstructive sleep apnea Is this a current diagnosis for this admission?: Yes Plan: BiPAP
[2017-06-20] MEDS: MONTELUKAST SODIUM 10 MG TABLET PO SCH (21:40)
[2017-06-20] MEDS: CEFEPIME HCL 2 GM in NORMAL SALINE 100 ML IV SCH (21:41)
[2017-06-20] MEDS ORDERED: OXYCODONE-ACETAMINOPHEN 5-325 MG TABLET PO ONE (22:45)
[2017-06-21] MEDS: IPRATROPIUM/ALBUTEROL 0.5-2.5 MG/3 ML AMPUL NEB SCH ×4 (02:21→19:25)
[2017-06-21] MEDS: LEVOTHYROXINE SODIUM 0.025 MG TABLET PO SCH (05:33)
[2017-06-21] MEDS: LEVOTHYROXINE SODIUM 0.1 MG TABLET PO SCH (05:33)
[2017-06-21] MEDS: HEPARIN SOD (PORCINE) 5,000 UNIT/ML 1 ML SYRINGE SUBCUT SCH ×2 (05:33→16:27)
[2017-06-21] MEDS: LANSOPRAZOLE 30 MG TAB.RAP.DR PO SCH ×2 (05:33→16:27)
--- NOTE | 2017-06-21 08:32 | RADIOLOGY REPORT (SQ) ---
EXAM DESCRIPTION: CHEST PA/LAT COMPLETED DATE/TIME: 06/21/2017 8:19 am REASON FOR STUDY: pneumonia COMPARISON: CT angio chest 08/15/2016 Chest films 06/15/2017, 06/19/2017 EXAM PARAMETERS: NUMBER OF VIEWS: two views TECHNIQUE: Digital Frontal and Lateral radiographic views of the chest acquired. RADIATION DOSE: NA LIMITATIONS: none FINDINGS: LUNGS AND PLEURA: Patchy bilateral airspace disease seen on 06/15/2017 has resolved. Today's films demonstrate no focal infiltrates. No pleural effusion. No pneumothorax. MEDIASTINUM AND HILAR STRUCTURES: No masses or contour abnormalities. HEART AND VASCULAR STRUCTURES: Stable mild cardiomegaly BONES: Osteoporotic without thoracic compression HARDWARE: Surgical clips at the GE junction OTHER: No other significant finding. IMPRESSION: Multifocal infiltrates seen 06/15/2017 have resolved TECHNICAL DOCUMENTATION: JOB ID: [id number] [employer]- All Rights Reserved
[2017-06-21] MEDS: MAGNESIUM OXIDE 400 MG TABLET PO SCH ×2 (11:12→18:09)
[2017-06-21] MEDS: GUAIFENESIN 600 MG TABLET.SA PO SCH (11:12)
[2017-06-21] MEDS: ASPIRIN 81 MG TABLET, CHEWABLE PO SCH (11:13)
[2017-06-21] MEDS: DOXYCYCLINE HYCLATE 100 MG TABLET PO SCH (11:13)
[2017-06-21] MEDS: CARVEDILOL 6.25 MG TABLET PO SCH (11:14)
[2017-06-21] MEDS: PREDNISONE 20 MG TABLET PO SCH (11:14)
[2017-06-21] MEDS: ESCITALOPRAM OXALATE 10 MG TABLET PO SCH (11:14)
[2017-06-21] MEDS: BUSPIRONE HCL 10 MG TABLET PO SCH ×2 (11:23→18:09)
[2017-06-21] MEDS: AMIODARONE HCL 200 MG TABLET PO SCH (11:24)
[2017-06-21] MEDS: FUROSEMIDE 20 MG TABLET PO SCH (11:25)
[2017-06-21] MEDS: FLUTICASONE NASAL SPRAY 50 MCG/SPRY 120 SPRAY/16 GM NASL SCH (11:26)
[2017-06-21] MEDS: CEFEPIME HCL 2 GM in NORMAL SALINE 100 ML IV SCH (11:27)
[2017-06-21 19:45] VITALS: BP 124/77
--- NOTE | 2017-08-02 12:02 | PDOC DISCHARGE SUMMARY ---
General - Admit/Disc Date/PCP Admission Date/Primary Care Provider: 06/16/17 01:19 Discharge Date: 06/21/17 - Discharge Diagnosis (1) Pneumonia Is this a current diagnosis for this admission?: Yes (2) COPD exacerbation Is this a current diagnosis for this admission?: Yes (3) Diabetes Is this a current diagnosis for this admission?: Yes (4) Hypertension Is this a current diagnosis for this admission?: Yes (5) Hypoxemia Is this a current diagnosis for this admission?: Yes (6) Obstructive sleep apnea Is this a current diagnosis for this admission?: Yes - Additional Information Resuscitation Status: Full Code Discharge Diet: As Tolerated, Regular Discharge Activity: Activity As Tolerated Prescriptions: Cefdinir [Omnicef 300 mg Capsule] 1 cap PO BID #10 capsule Doxycycline Hyclate [Vibramycin 100 mg Tablet] 100 mg PO Q12 #10 tablet Prednisone [Deltasone 20 mg Tablet] 20 mg PO Q12 #10 tablet Home Medications: Albuterol Sulfate [Proair Respiclick] 2 puff IH Q2HP PRN 06/16/17 Amiodarone HCl [Cordarone 200 mg Tablet] 200 mg PO DAILY 06/16/17 Aspirin [Aspirin 81 mg Chewable Tablet] 81 mg PO DAILY 06/16/17 Aspirin/Caffeine [Bc Arthritis Powder Packet] 1 packet PO DAILYP PRN 06/16/17 Buspirone HCl 15 mg PO BID 06/16/17 Carvedilol 6.25 mg PO Q12 06/16/17 Diphenhydramine HCl 25 mg PO HSP PRN 06/16/17 Escitalopram Oxalate 20 mg PO DAILY 06/16/17 Fluticasone/Vilanterol [Breo Ellipta 100-25 Mcg INH] 1 puff IH DAILY 06/16/17 Furosemide 20 mg PO DAILY 06/16/17 Lactobacillus Combination No.4 [Probiotic] 1 each PO DAILY 06/16/17 Levothyroxine Sodium 125 mcg PO Q6AM 06/16/17 Magnesium Oxide [Magnesium] 400 mg PO BID 06/16/17 Montelukast Sodium 10 mg PO QHS 06/16/17 Multivit-Minerals/Folic Acid [Centrum Multigummies] 80 mcg PO DAILY 06/16/17 Naproxen Sodium [Aleve] 220 mg PO DAILYP PRN 06/16/17 Oxycodone HCl [Oxycontin] 30 mg PO BID 06/16/17 Cefdinir [Omnicef 300 mg Capsule] 1 cap PO BID #10 capsule 06/21/17 Doxycycline Hyclate [Vibramycin 100 mg Tablet] 100 mg PO Q12 #10 tablet Guaifenesin [Robitussin Syrup 200 mg/10 ml Ud Cup] 200 mg PO Q4HP PRN udc 06/21 Prednisone [Deltasone 20 mg Tablet] 20 mg PO Q12 #10 tablet 06/21/17 History of Present Illness History of Present Illness: Patient presented per admission HPI below: "RADHA LAGUERRE is a 72 year old female with a past medical history of diabetes, hypertension, obesity, atrial fibrillation, COPD and obstructive sleep apnea. Patient presents with 3-4 days of shortness of breath, nonproductive cough, subjective fevers and fatigue prompting a call to EMS who found her with oxygen saturation of 60% on room air. She is placed on oxygen and BiPAP brought to the emergency room for evaluation found to have bilateral wheezing and rhonchi and a chest x-ray with multifocal pneumonia. She started on empiric antibiotics and referred to the hospitalist for admission. She denies recent antibiotic use, infectious contacts or chest pain." Hospital Course Hospital Course: Patient was admitted to the hospitalist service and managed as below: (1) Pneumonia Qualifiers: Pneumonia type: due to unspecified organism Laterality: bilateral Lung location: unspecified part of lung Qualified Code(s): J18.9 - Pneumonia, unspecified organism Is this a current diagnosis for this admission?: Yes Plan: Treated with Cefepime and Doxycycline and patient has significantly improved. F/ u CXR showed resolution of multifocal infiltrate. (2) COPD exacerbation Is this a current diagnosis for this admission?: Yes Plan: Treated with duo nebs, steroids, BiPAP and O2 and patient has significantly improved. (3) Diabetes Is this a current diagnosis for this admission?: Yes Plan: Monitored blood sugars (4) Hypertension Is this a current diagnosis for this admission?: Yes Plan: Stable (5) Hypoxemia Is this a current diagnosis for this admission?: Yes Plan: Improved, treated with O2, BiPAP as needed. (6) Obstructive sleep apnea Is this a current diagnosis for this admission?: Yes Plan: Improved, treated with nebs, O2, BiPAP Physical Exam Vital Signs: Temp Pulse Resp BP Pulse Ox 98.8 F 77 14 124/77 97 06/21/17 19:38 06/21/17 19:38 06/21/17 19:38 06/21/17 19:38 06/21/17 19:38 Results Laboratory Results: 06/19/17 06:18 06/19/17 06:18 Impressions: Chest X-Ray 06/21/17 06:30 IMPRESSION: Multifocal infiltrates seen 06/15/2017 have resolved Qualifiers - * PATEINT BEING DISCHARGED WITH ANY OF THE FOLLOWING DIAGNOSIS?: No Plan Discharge Plan: Markedly improved. F/u CXR showed revealed resolution of multifocal infiltrate. Blood cultures negative. Patient being discharged home in improved condition. F/ u with pcp within 1 week. Time Spent: Greater than 30 Minutes
== END 2017-06-21 20:05 | disposition home or self-care (01) | DRG 194 ==
LOC: ER 23:36 → EH 06-16 01:19 → 5 06-16 16:54
PROVIDERS: ADMIT Internal Medicine; ATTEND Internal Medicine
DX: J18.9 Pneumonia, unspecified organism (principal); J44.1 Chronic obstructive pulmonary disease with (acute) exacerbation; R09.02 Hypoxemia; I45.81 Long QT syndrome; I10 Essential (primary) hypertension; K21.9 Gastro-esophageal reflux disease without esophagitis; E11.9 Type 2 diabetes mellitus without complications; I48.91 Unspecified atrial fibrillation; G47.33 Obstructive sleep apnea (adult) (pediatric); Z98.84 Bariatric surgery status; Z79.82 Long term (current) use of aspirin; Z79.899 Other long term (current) drug therapy
CPT/HCPCS: 36415; 71045; 71046; 80048; 80053; 82550; 82553; 82803; 84484; 85025; 85610; 87040; 93005; 93010; 94640; 94660; 94667; 94668; 94799; 96365; 96375; 99285; J0692; J1644; J1956; J2405; J2930; J3475; J3490; J7512; J7620

== ENCOUNTER 2017-09-11 00:59 | Inpatient (IN) | payer MEDICARE ==
[2017-09-11 01:27] LABS: ABSOLUTE BASOPHILS # (AUTO) 0.1 10^3/uL (0.0-0.2); ABSOLUTE EOSINOPHILS # (AUTO) 0.3 10^3/uL (0.0-0.6); ABSOLUTE LYMPHOCYTES (AUTO) 1.8 10^3/uL (0.5-4.7); ABSOLUTE MONOCYTES (AUTO) 0.4 10^3/uL (0.1-1.4); ABSOLUTE NEUT (AUTO) 3.1 10^3/uL (1.7-8.2); EOSINOPHILS % (AUTO) 4.6 % (0-6); HEMATOCRIT 42.1 % (36.0-47.0); HEMOGLOBIN 13.7 g/dL (12.0-15.5); LYMPHOCYTES % (AUTO) 32.4 % (13-45); MEAN CORPUSCULAR HEMOGLOBIN 31.1 pg (27.0-33.4); MEAN CORPUSCULAR HGB CONC 32.6 g/dL (32.0-36.0); MEAN CORPUSCULAR VOLUME 96 fl (80-97); MONOCYTES % (AUTO) 7.8 % (3-13); PLATELET COUNT 188 10^3/uL (150-450); RED CELL DISTRIBUTION WIDTH 13.7 % (11.5-14.0); SEGMENTED NEUTROPHILS % (AUTO) 54.2 % (42-78); TOTAL CELLS COUNTED % (AUTO) 100 %; WHITE BLOOD COUNT 5.7 10^3/uL (4.0-10.5)
--- NOTE | 2017-09-11 01:45 | ER Document Report ---
ED General - General Chief Complaint: Shortness Of Breath Stated Complaint: SHORTNESS OF BREATH Time Seen by Provider: 09/11/17 01:02 Notes: Patient is a 72-year-old female presents with complaint of difficulty breathing. She woke up tonight significant respiratory distress and hypoxic. Initial O2 saturation was 85%. Paramedics arrived she was working very hard to breathe. The placed her on CPAP. She was hypertensive and therefore they placed nitro paste on her. Her lung reilly sounded wet she had rales. After being placed on CPAP nitro she improved on her way here. She never had any chest pain denies any current chest pain. She has had this happen in the past. No recent fevers or infections. No other complaints at this time other than a headache that began after the nitro was placed. TRAVEL OUTSIDE OF THE [place] IN LAST 30 DAYS: No - Related Data Allergies/Adverse Reactions: Beta-Blockers (Beta-Adrenergic Bloc Allergy (Verified 09/11/17 01:39) codeine [Codeine] Allergy (Verified 09/11/17 01:39) haloperidol [From Haldol] Allergy (Verified 09/11/17 01:39) haloperidol lactate [From Haldol] Allergy (Verified 09/11/17 01:39) Sulfa (Sulfonamide Antibiotics) Allergy (Verified 09/11/17 01:39) zolpidem tartrate [From Ambien] Allergy (Verified 09/11/17 01:39) Past Medical History - Social History Smoking Status: Unknown if Ever Smoked Frequency of alcohol use: None Drug Abuse: None Family History: COPD Patient has suicidal ideation: No Patient has homicidal ideation: No - Past Medical History Cardiac Medical History: Reports: Hx Atrial Fibrillation, Hx Hypertension, Hx Heart Murmur Pulmonary Medical History: Reports: Hx COPD Renal/ Medical History: Denies: Hx Peritoneal Dialysis GI Medical History: Reports: Hx Gastroesophageal Reflux Disease Psychiatric Medical History: Reports: Hx Depression Past Surgical History: Reports: Hx Abdominal Surgery - gastric bypass. tummy tuck, Hx Thyroid Surgery - Immunizations Hx Diphtheria, Pertussis, Tetanus Vaccination: Yes Review of Systems - Review of Systems Notes: My Normal Review Basic REVIEW OF SYSTEMS: CONSTITUTIONAL : Denies fever, chills, or sweats. Denies recent illness. EENT: Denies eye, ear, throat, or mouth pain or symptoms. Denies nasal or sinus congestion. CARDIOVASCULAR: Denies chest pain. RESPIRATORY: Difficulty breathing. GASTROINTESTINAL: Denies abdominal pain. Denies nausea, vomiting, or diarrhea. Denies constipation. Last BM: GENITOURINARY: Denies difficulty urinating, painful urination, burning, frequency, or blood in urine. MUSCULOSKELETAL: Denies neck or back pain or joint pain or swelling. SKIN: Denies rash or skin lesions. HEMATOLOGIC : Denies easy bruising or bleeding. NEUROLOGICAL: Denies altered mental status or loss of consciousness. Denies headache. Denies weakness or paralysis or loss of use of either side. Denies problems with gait or speech. Denies sensory or motor loss. ALL OTHER SYSTEMS REVIEWED AND NEGATIVE. Physical Exam - Vital signs Vitals: Resp Pulse Ox 28 H 98 09/11/17 01:03 09/11/17 01:03 - Notes Notes: Normal General Appearance: Well nourished, alert, cooperative, mild acute distress, no obvious discomfort. Vitals: reviewed, See vital signs table. Head: no swelling or tenderness to the head Eyes: PERRL, EOMI, Conjuctiva clear Mouth: No decreasd moisture Lungs: No wheezing, diffuse rales, No rhonci, No accessory muscle use, good air exchange bilaterally. Heart: Normal rate, Regular rythm, No murmur, no rub Abdomen: Normal BS, soft, No rigidity, No abdominal tenderness, No guarding, no rebound, Extremities: strength 5/5 in all extremities, good pulses in all extremities, no swelling or tenderness in the extremities, no edema. Skin: warm, dry, appropriate color, no rash Neuro: speech clear, oriented x 3, normal affect, responds appropriately to questions. Course - Re-evaluation Re-evalutation: 09/11/17 02:40 Patient continues to do well on BiPAP. Her rales are almost completely resolved now. Blood pressures remained normal since receiving the nitro and therefore remove the Nitropaste at this time. She has no further complaints at this time. She denies ever having chest pain. Her initial troponin is in indeterminate range. BNP is elevated. EKG does not show any ischemic changes and shows left bundle branch block which she has had before. I have spoken with the hospitalist, Dr. Moore, who agrees with the patient. Dictation of this chart was performed using voice recognition software; therefore, there may be some unintended grammatical errors. - Vital Signs Vital signs: Temp Pulse Resp BP Pulse Ox 97.6 F 14 127/94 H 96 09/11/17 01:05 09/11/17 01:07 09/11/17 01:07 09/11/17 01:06 - Laboratory Result Diagrams: 09/11/17 01:10 09/11/17 01:46 Laboratory results interpreted by me: 09/11/17 09/11/17 01:46 01:46 Chloride 108 H Glucose 114 H AST 42 H NT-Pro-B Natriuret Pep 3290 H Total Protein 5.9 L Albumin 3.0 L - EKG Interpretation by Me Additional EKG results interpreted by me: 09/11/17 01:45 EKG is reviewed and interpreted by me. EKG shows sinus rhythm with rate of [address]pm. He does have ST segment changes typically seen in left bundle branch block. Her left bundle branch block is unchanged and consistent with her previous EKG from June 15, 2017. NE interval is within normal range. QRS duration QTc intervals are prolonged. Discharge - Discharge Clinical Impression: Flash pulmonary edema Condition: Stable Disposition: ADMITTED OBSERVATION Admitting Provider: Hospitalist Unit Admitted: [facility]
[2017-09-11 02:15] LABS: ALANINE AMINOTRANSFERASE 30 U/L (9-52); ALKALINE PHOSPHATASE 99 U/L (38-126); ANION GAP 10 (5-19); ASPARTATE AMINO TRANSFERASE 42 U/L (14-36); BILIRUBIN,DIRECT 0.4 mg/dL (0.0-0.4); BILIRUBIN,TOTAL 0.4 mg/dL (0.2-1.3); BLOOD UREA NITROGEN 18 mg/dL (7-20); CALCIUM 8.9 mg/dL (8.4-10.2); CARBON DIOXIDE 26 mmol/L (22-30); CHLORIDE 108 mmol/L (98-107); GLUCOSE 114 mg/dL (75-110); POTASSIUM 4.7 mmol/L (3.6-5.0); SODIUM 144.4 mmol/L (137-145); TOTAL PROTEIN 5.9 g/dL (6.3-8.2)
--- NOTE | 2017-09-11 02:17 | RADIOLOGY REPORT (SQ) ---
EXAM DESCRIPTION: XR CHEST 1 VIEW CLINICAL HISTORY: 72 years Female, dyspnea COMPARISON: 2.19.18. NUMBER OF VIEWS/TECHNIQUE: 1/AP FINDINGS: Adequate lung volume, small left lower lobar opacity, normal cardiac silhouette, and intact bony thorax. IMPRESSION: Small left lower lobar pneumonia/atelectasis. Recommend CR/CT surveillance including at 7-12 weeks following initiation of clinically warranted therapy.
[2017-09-11 02:22] LABS: TROPONIN I 0.044 ng/mL
[2017-09-11] MEDS ORDERED: IPRATROPIUM/ALBUTEROL 0.5-2.5 MG/3 ML AMPUL NEB PRN (02:40)
[2017-09-11] MEDS ORDERED: MAG HYDROX/AL HYDROX/SIMETH SUSP 30 ML UDCUP PO PRN (02:40)
[2017-09-11] MEDS ORDERED: HYDRALAZINE HCL INJ/PF 20 MG/1 ML SDV IV PRN (02:42)
[2017-09-11] MEDS ORDERED: FUROSEMIDE INJ/PF 40 MG/4 ML SDV IV ONE (03:30)
[2017-09-11] MEDS: HEPARIN SOD (PORCINE) 5,000 UNIT/ML 1 ML SYRINGE SUBCUT SCH ×3 (05:22→21:24)
[2017-09-11] MEDS: ACETAMINOPHEN 325 MG TABLET PO PRN ×2 (05:22→18:48)
--- NOTE | 2017-09-11 06:53 | PDOC H&P ---
History of Present Illness Admission Date/PCP: 09/11/17 02:48 Patient complains of: Shortness of breath History of Present Illness: RADHA LAGUERRE is a 72 year old female with a past medical history of hypertension , diabetes, obesity, obstructive sleep apnea, atrial fibrillation and COPD. She presents with an abrupt onset of shortness of breath and nonproductive cough. She denies chest pain, palpitations, EMS reports blood pressure of 180 systolic. She is brought to the emergency room and found to have hypoxia and is placed transdermal nitro paste and BiPAP. Workup reveals a chest x-ray shows left-sided infiltrate, a BNP of 3200. Patient denies chest pain nausea vomiting palpitations. Denies missing medications and is otherwise felt well. Past Medical History Cardiac Medical History: Reports: Atrial Fibrillation, Hypertension, Heart Murmur Pulmonary Medical History: Reports: Chronic Obstructive Pulmonary Disease (COPD) GI Medical History: Reports: Gastroesophageal Reflux Disease Psychiatric Medical History: Reports: Depression Social History Smoking Status: Never Smoker Frequency of Alcohol Use: Rare Hx Recreational Drug Use: No Hx Prescription Drug Abuse: No - Advance Directive Resuscitation Status: Full Code Family History Family History: COPD Parental Family History Reviewed: Yes Children Family History Reviewed: Yes Sibling(s) Family History Reviewed.: Yes Medication/Allergy Home Medications: Albuterol Sulfate [Proair Respiclick] 2 puff IH Q2HP PRN 06/16/17 Amiodarone HCl [Cordarone 200 mg Tablet] 200 mg PO DAILY 06/16/17 Aspirin [Aspirin 81 mg Chewable Tablet] 81 mg PO DAILY 06/16/17 Buspirone HCl 15 mg PO BID 06/16/17 Carvedilol 6.25 mg PO Q12 06/16/17 Escitalopram Oxalate 20 mg PO DAILY 06/16/17 Fluticasone/Vilanterol [Breo Ellipta 100-25 Mcg INH] 1 puff IH DAILY 06/16/17 Furosemide 20 mg PO DAILY 06/16/17 Levothyroxine Sodium 125 mcg PO Q6AM 06/16/17 Magnesium Oxide [Magnesium] 400 mg PO BID 06/16/17 Montelukast Sodium 10 mg PO QHS 06/16/17 Multivit-Minerals/Folic Acid [Centrum Multigummies] 80 mcg PO DAILY 06/16/17 Naproxen Sodium [Aleve] 220 mg PO DAILYP PRN 06/16/17 Ondansetron [Ondansetron Odt] 4 mg PO Q8H PRN 09/11/17 Allergies/Adverse Reactions: Beta-Blockers (Beta-Adrenergic Bloc Allergy (Verified 09/11/17 01:39) codeine [Codeine] Allergy (Verified 09/11/17 01:39) haloperidol [From Haldol] Allergy (Verified 09/11/17 01:39) haloperidol lactate [From Haldol] Allergy (Verified 09/11/17 01:39) Sulfa (Sulfonamide Antibiotics) Allergy (Verified 09/11/17 01:39) zolpidem tartrate [From Ambien] Allergy (Verified 09/11/17 01:39) Review of Systems Constitutional: ABSENT: chills, fever(s), headache(s), weight gain, weight loss Eyes: ABSENT: visual disturbances Ears: ABSENT: hearing changes Cardiovascular: ABSENT: chest pain, dyspnea on exertion, edema, orthropnea, palpitations Respiratory: ABSENT: cough, hemoptysis Gastrointestinal: ABSENT: abdominal pain, constipation, diarrhea, hematemesis, hematochezia, nausea, vomiting Genitourinary: ABSENT: dysuria, hematuria Musculoskeletal: ABSENT: joint swelling Integumentary: ABSENT: rash, wounds Neurological: ABSENT: abnormal gait, abnormal speech, confusion, dizziness, focal weakness, syncope Psychiatric: ABSENT: anxiety, depression, homidical ideation, suicidal ideation Endocrine: ABSENT: cold intolerance, heat intolerance, polydipsia, polyuria Hematologic/Lymphatic: ABSENT: easy bleeding, easy bruising Physical Exam Vital Signs: Temp Pulse Resp BP Pulse Ox 97.6 F 84 19 132/94 H 97 09/11/17 04:39 09/11/17 04:39 09/11/17 04:39 09/11/17 04:39 09/11/17 04:39 Intake & Output 09/09/17 09/10/17 09/11/17 11:59 11:59 11:59 Intake Total 123 Output Total 650 Balance -527 Weight 90.6 kg General appearance: PRESENT: mild distress, obese, well-developed, well- nourished Head exam: PRESENT: atraumatic, normocephalic Eye exam: PRESENT: conjunctiva pink, EOMI, PERRLA. ABSENT: scleral icterus Ear exam: PRESENT: normal external ear exam Mouth exam: PRESENT: moist, tongue midline Neck exam: ABSENT: carotid bruit, JVD, lymphadenopathy, thyromegaly Respiratory exam: PRESENT: accessory muscle use, clear to auscultation glory, crackles, prolonged expiratory phas, retraction, tachypnea. ABSENT: rales, rhonchi, wheezes Cardiovascular exam: PRESENT: irregular rhythm. ABSENT: diastolic murmur, rubs , systolic murmur Pulses: PRESENT: normal dorsalis pedis pul Vascular exam: PRESENT: normal capillary refill GI/Abdominal exam: PRESENT: normal bowel sounds, soft. ABSENT: distended, guarding, mass, organolmegaly, rebound, tenderness Rectal exam: PRESENT: deferred Extremities exam: PRESENT: full ROM. ABSENT: calf tenderness, clubbing, pedal edema Neurological exam: PRESENT: alert, awake, oriented to person, oriented to place , oriented to time, oriented to situation, CN II-XII grossly intact. ABSENT: motor sensory deficit Psychiatric exam: PRESENT: appropriate affect, normal mood. ABSENT: homicidal ideation, suicidal ideation Skin exam: PRESENT: dry, intact, warm. ABSENT: cyanosis, rash Results Impressions: Chest X-Ray 09/11/17 01:02 IMPRESSION: Small left lower lobar pneumonia/atelectasis. Recommend CR/CT surveillance including at 7-12 weeks following initiation of clinically warranted therapy. Assessment & Plan - Diagnosis (1) Flash pulmonary edema Is this a current diagnosis for this admission?: Yes Plan: Likely secondary to hypertensive urgency. Denying CPAP noncompliance or tachycardia. Loop diuretic, nitroglycerin and as needed hydralazine. Monitor for uncontrolled heart rate. (2) COPD exacerbation Is this a current diagnosis for this admission?: Yes Plan: Albuterol and Atrovent, incentive spirometry and flutter valve. (3) Obstructive sleep apnea Is this a current diagnosis for this admission?: Yes Plan: CPAP - Time Time Spent: 30 to 50 Minutes
[2017-09-11 07:35] LABS: ANION GAP 6 (5-19); BLOOD UREA NITROGEN 17 mg/dL (7-20); CALCIUM 8.8 mg/dL (8.4-10.2); CARBON DIOXIDE 32 mmol/L (22-30); CHLORIDE 103 mmol/L (98-107); GLUCOSE 97 mg/dL (75-110); POTASSIUM 4.3 mmol/L (3.6-5.0); SODIUM 141.1 mmol/L (137-145)
--- NOTE | 2017-09-11 08:43 | EKG REPORT ---
SEVERITY:- ABNORMAL ECG - SINUS RHYTHM MULTIPLE VENTRICULAR PREMATURE COMPLEXES IVCD, CONSIDER ATYPICAL LBBB : Confirmed by: Jonny Hernandez MD 11-Sep-2017 08:43:18
[2017-09-11] MEDS: BUSPIRONE HCL 10 MG TABLET PO SCH ×2 (09:59→17:35)
[2017-09-11] MEDS: DOCUSATE SODIUM 100 MG CAPSULE PO SCH ×2 (09:59→17:35)
[2017-09-11] MEDS: CARVEDILOL 6.25 MG TABLET PO SCH ×2 (10:00→21:24)
[2017-09-11] MEDS: ASPIRIN 81 MG TABLET, CHEWABLE PO SCH (10:01)
[2017-09-11] MEDS: AMIODARONE HCL 200 MG TABLET PO SCH (10:01)
[2017-09-11] MEDS: DIPHENHYDRAMINE HCL 25 MG CAPSULE PO PRN ×2 (13:48→23:03)
[2017-09-12] MEDS: HEPARIN SOD (PORCINE) 5,000 UNIT/ML 1 ML SYRINGE SUBCUT SCH ×3 (05:48→22:58)
[2017-09-12 06:14] LABS: ABSOLUTE BASOPHILS # (AUTO) 0.1 10^3/uL (0.0-0.2); ABSOLUTE EOSINOPHILS # (AUTO) 0.3 10^3/uL (0.0-0.6); ABSOLUTE LYMPHOCYTES (AUTO) 2.2 10^3/uL (0.5-4.7); ABSOLUTE MONOCYTES (AUTO) 0.7 10^3/uL (0.1-1.4); ABSOLUTE NEUT (AUTO) 2.1 10^3/uL (1.7-8.2); BASOPHILS % (AUTO) 1.3 % (0-2); EOSINOPHILS % (AUTO) 4.9 % (0-6); HEMATOCRIT 36.7 % (36.0-47.0); HEMOGLOBIN 12.2 g/dL (12.0-15.5); LYMPHOCYTES % (AUTO) 42.1 % (13-45); MEAN CORPUSCULAR HEMOGLOBIN 31.1 pg (27.0-33.4); MEAN CORPUSCULAR HGB CONC 33.3 g/dL (32.0-36.0); MEAN CORPUSCULAR VOLUME 94 fl (80-97); MONOCYTES % (AUTO) 12.8 % (3-13); PLATELET COUNT 145 10^3/uL (150-450); RED BLOOD COUNT 3.92 10^6/uL (3.72-5.28); RED CELL DISTRIBUTION WIDTH 13.3 % (11.5-14.0); SEGMENTED NEUTROPHILS % (AUTO) 38.9 % (42-78); TOTAL CELLS COUNTED % (AUTO) 100 %; WHITE BLOOD COUNT 5.3 10^3/uL (4.0-10.5)
[2017-09-12 06:38] LABS: ANION GAP 7 (5-19); BLOOD UREA NITROGEN 17 mg/dL (7-20); CALCIUM 8.6 mg/dL (8.4-10.2); CARBON DIOXIDE 31 mmol/L (22-30); CHLORIDE 104 mmol/L (98-107); GLUCOSE 85 mg/dL (75-110); POTASSIUM 4.2 mmol/L (3.6-5.0); SODIUM 142.2 mmol/L (137-145)
[2017-09-12] MEDS: AMIODARONE HCL 200 MG TABLET PO SCH (09:19)
[2017-09-12] MEDS: BUSPIRONE HCL 10 MG TABLET PO SCH ×2 (09:19→17:07)
[2017-09-12] MEDS: CARVEDILOL 6.25 MG TABLET PO SCH ×2 (09:19→22:55)
[2017-09-12] MEDS: ASPIRIN 81 MG TABLET, CHEWABLE PO SCH (09:20)
[2017-09-12] MEDS: DOCUSATE SODIUM 100 MG CAPSULE PO SCH ×2 (09:20→17:07)
[2017-09-12] MEDS ORDERED: (PENDING PHARMACY ID) (Fluticasone/Vilanterol [Breo Ellipta 100-25 Mcg Inh] 1 PUFF) IH SCH (12:30)
[2017-09-12] MEDS ORDERED: ESCITALOPRAM OXALATE PO SCH (12:30)
[2017-09-12] MEDS ORDERED: FUROSEMIDE 20 MG TABLET PO SCH (12:30)
[2017-09-12] MEDS ORDERED: (PENDING PHARMACY ID) (Levothyroxine Sodium [Levothyroxine Sodium] 137 MCG) PO SCH (12:30)
--- NOTE | 2017-09-12 12:32 | PDOC PROGRESS REPORT ---
Subjective Progress Note for:: 09/12/17 Subjective:: Admitted with dyspnea, shortness of breath Reason For Visit: HTN URGENCY, PUL EDEMA Physical Exam Vital Signs: Temp Pulse Resp BP Pulse Ox 98.3 F 68 17 131/76 H 96 09/11/17 23:14 09/12/17 02:00 09/12/17 03:42 09/11/17 23:14 09/12/17 03:42 Intake & Output 09/11/17 09/12/17 09/13/17 06:59 06:59 06:59 Intake Total 123 1174 Output Total 650 1100 Balance -527 74 Weight 90.6 kg 89.8 kg General appearance: PRESENT: no acute distress Head exam: PRESENT: atraumatic Neck exam: ABSENT: carotid bruit, JVD, lymphadenopathy, thyromegaly Respiratory exam: PRESENT: decreased breath sounds, unlabored. ABSENT: rhonchi , tachypnea, wheezes Cardiovascular exam: PRESENT: RRR. ABSENT: diastolic murmur, rubs, systolic murmur GI/Abdominal exam: PRESENT: normal bowel sounds, soft. ABSENT: distended, guarding, mass, organolmegaly, rebound, tenderness Rectal exam: PRESENT: deferred Extremities exam: PRESENT: full ROM. ABSENT: calf tenderness, clubbing, pedal edema Musculoskeletal exam: PRESENT: ambulatory Neurological exam: PRESENT: alert, awake, oriented to person, oriented to place , oriented to time, oriented to situation, CN II-XII grossly intact. ABSENT: motor sensory deficit Psychiatric exam: PRESENT: appropriate affect Results Laboratory Results: 09/12/17 05:34 09/12/17 05:34 09/12/17 09/12/17 05:34 05:34 WBC 5.3 RBC 3.92 Hgb 12.2 Hct 36.7 MCV 94 MCH 31.1 MCHC 33.3 RDW 13.3 Plt Count 145 L Seg Neutrophils % 38.9 L Lymphocytes % 42.1 Monocytes % 12.8 Eosinophils % 4.9 Basophils % 1.3 Absolute Neutrophils 2.1 Absolute Lymphocytes 2.2 Absolute Monocytes 0.7 Absolute Eosinophils 0.3 Absolute Basophils 0.1 Sodium 142.2 Potassium 4.2 Chloride 104 Carbon Dioxide 31 H Anion Gap 7 BUN 17 Creatinine 0.74 Est GFR ( Amer) > 60 Est GFR (Non-Af Amer) > 60 Glucose 85 Calcium 8.6 Impressions: Chest X-Ray 09/11/17 01:02 IMPRESSION: Small left lower lobar pneumonia/atelectasis. Recommend CR/CT surveillance including at 7-12 weeks following initiation of clinically warranted therapy. Assessment & Plan - Diagnosis (1) Flash pulmonary edema Is this a current diagnosis for this admission?: Yes Plan: Obtain echocardiogram to evaluate LV function (2) COPD exacerbation Is this a current diagnosis for this admission?: Yes (3) Hypertension Is this a current diagnosis for this admission?: Yes (4) Pneumonia Qualifiers: Pneumonia type: due to unspecified organism Laterality: left Lung location: lower lobe of lung Qualified Code(s): J18.1 - Lobar pneumonia, unspecified organism Is this a current diagnosis for this admission?: Yes Plan: Patient has been afebrile, normal WBC, no clinical symptoms of PNA. She has been on no antibiotics since admission. Will continue to monitor. F/u CXR/CT suggested in 6 weeks - Time Time Spent with patient: 15-24 minutes Medications reviewed and adjusted accordingly: Yes Anticipated discharge: Home Within: within 48 hours - Inpatient Certification Based on my medical assessment, after consideration of the patient's comorbidities, presenting symptoms, or acuity I expect that the services needed warrant INPATIENT care.: Yes Medical Necessity: Need Close Monitoring Due to Risk of Patient Decompensation, Risk of Complication if Not Cared For in Hospital
[2017-09-12] MEDS ORDERED: FUROSEMIDE 40 MG TABLET PO ONE (13:30)
[2017-09-12] MEDS ORDERED: LEVOTHYROXINE SODIUM 0.025 MG TABLET PO ONE (15:00)
[2017-09-12] MEDS ORDERED: LEVOTHYROXINE SODIUM 0.112 MG TABLET PO ONE (15:00)
[2017-09-12] MEDS ORDERED: ESCITALOPRAM OXALATE 10 MG TABLET PO ONE (15:00)
[2017-09-12] MEDS: MONTELUKAST SODIUM 10 MG TABLET PO SCH (22:55)
[2017-09-12] MEDS: DIPHENHYDRAMINE HCL 25 MG CAPSULE PO PRN (22:57)
[2017-09-13] MEDS: LEVOTHYROXINE SODIUM 0.112 MG TABLET PO SCH (05:50)
[2017-09-13] MEDS: LEVOTHYROXINE SODIUM 0.025 MG TABLET PO SCH (05:51)
[2017-09-13] MEDS: HEPARIN SOD (PORCINE) 5,000 UNIT/ML 1 ML SYRINGE SUBCUT SCH ×3 (05:54→21:38)
[2017-09-13 06:38] LABS: ANION GAP 7 (5-19); BLOOD UREA NITROGEN 17 mg/dL (7-20); CALCIUM 8.8 mg/dL (8.4-10.2); CARBON DIOXIDE 30 mmol/L (22-30); CHLORIDE 106 mmol/L (98-107); GLUCOSE 87 mg/dL (75-110); POTASSIUM 4.1 mmol/L (3.6-5.0); SODIUM 143.4 mmol/L (137-145)
[2017-09-13] MEDS: AMIODARONE HCL 200 MG TABLET PO SCH (09:47)
[2017-09-13] MEDS: ASPIRIN 81 MG TABLET, CHEWABLE PO SCH (09:47)
[2017-09-13] MEDS: FUROSEMIDE 40 MG TABLET PO SCH (09:47)
[2017-09-13] MEDS: CARVEDILOL 6.25 MG TABLET PO SCH ×2 (09:48→21:39)
[2017-09-13] MEDS: BUSPIRONE HCL 10 MG TABLET PO SCH ×2 (09:48→17:27)
[2017-09-13] MEDS: ESCITALOPRAM OXALATE 10 MG TABLET PO SCH (09:48)
[2017-09-13] MEDS: DOCUSATE SODIUM 100 MG CAPSULE PO SCH ×2 (09:48→17:27)
--- NOTE | 2017-09-13 12:43 | XCELERA REPORT ---
[address] [address] Transthoracic Echocardiogram Report Name: RADHA LAGUERRE Age: 72 yrs Gender: Female : 1945 Patient Status: Inpatient Patient Location: [address] [place] [address] Study Date: 09/13/2017 09:02 AM Procedure: A complete two-dimensional transthoracic echocardiogram was performed (2D, M-mode, spectral and color flow Doppler). The study was technically difficult with many images being suboptimal in quality. Reason For Study: Pulmonary edema Ordering Physician: SHASHA RUIZ Performed By: Kelin Angeles Interpretation Summary The left ventricular ejection fraction is normal. There is moderate concentric left ventricular hypertrophy. The left ventricle is grossly normal size. Doppler measurements suggest pseudonormalized left ventricular relaxation, which is associated with grade II/IV or mild to moderate diastolic dysfunction Wall motion cannot be accurately commented on, but no definite regional wall motion abnormalities noted. The right ventricle is grossly normal size. The right ventricular systolic function is normal. The right atrium is normal in size The left atrium is moderately dilated. There is a mild amount of mitral regurgitation There is no mitral valve stenosis. There is mild to moderate aortic stenosis There is a peak gradient of 25 mm of Hg. There is a trace to mild amount of aortic regurgitation There is a trace to mild amount of tricuspid regurgitation There is mild pulmonary hypertension by echo Right ventricular systolic pressure is estimated to be elevated at 30- 40mmHg. The aortic root is not well visualized but is probably normal size. The inferior vena cava was not visualized Minimal pericardial effusion. MMode/2D Measurements & Calculations RVDd: 2.6 cm LVIDd: 5.0 cm FS: 37.5 % Ao root diam: IVSd: 1.5 cm LVIDs: 3.1 cm EDV(Teich): 2.9 cm LVPWd: 2.0 cm 119.6 ml Ao root area: ESV(Teich): 6.8 cm2 39.2 ml LA dimension: EF(Teich): 67.3 % 4.8 cm LVOT diam: LVLd ap4: 7.4 cm SV(MOD-sp4): LA A4Cs: 38.6 cm2 2.0 cm EDV(MOD-sp4): 62.0 ml LVOT area: 91.0 ml 3.2 cm2 LVLs ap4: 6.4 cm ESV(MOD-sp4): 29.0 ml EF(MOD-sp4): 68.1 % LA length: 7.1 cm Doppler Measurements & Calculations MV E max ludmila: MV P1/2t max ludmila: Ao V2 max: AI max ludmila: 78.7 cm/sec 79.4 cm/sec 249.9 cm/sec 494.5 cm/sec MV A max ludmila: MV P1/2t: 39.3 msec Ao max PG: AI max P.8 cm/sec MVA(P1/2t): 5.6 cm2 25.2 mmHg 97.8 mmHg MV E/A: 1.4 MV dec slope: Ao V2 mean: AI dec slope: 185.1 cm/sec 296.0 cm/sec2 592.0 cm/sec2 Ao mean PG: AI P1/2t: 15.4 mmHg 489.3 msec Ao V2 VTI: 52.8 cm ROSALIE(I,D): 0.93 cm2 ROSALIE(V,D): 0.94 cm2 LV V1 max PG: SV(LVOT): 48.9 ml PA V2 max: TR max ludmila: 2.2 mmHg 120.5 cm/sec 267.0 cm/sec LV V1 mean PG: PA max PG: TR max P.4 mmHg 5.8 mmHg 28.5 mmHg LV V1 max: 73.5 cm/sec LV V1 mean: 56.5 cm/sec LV V1 VTI: 15.3 cm Left Ventricle The left ventricle is grossly normal size. There is moderate concentric left ventricular hypertrophy. The left ventricular ejection fraction is normal. Doppler measurements suggest pseudonormalized left ventricular relaxation, which is associated with grade II/IV or mild to moderate diastolic dysfunction. Wall motion cannot be accurately commented on, but no definite regional wall motion abnormalities noted. Right Ventricle The right ventricle is grossly normal size. There is normal right ventricular wall thickness. The right ventricular systolic function is normal. Atria The right atrium is normal in size. The left atrium is moderately dilated. Interarterial septum not well visualized and not well dopplered. Cannot comment on ASD/PFO presence. Mitral Valve The mitral valve is grossly normal. There is no mitral valve stenosis. There is a mild amount of mitral regurgitation. Aortic Valve The aortic valve is mildly calcified. The aortic valve is trileaflet. There is mild to moderate aortic stenosis. There is a peak gradient of 25 mm of Hg. There is a trace to mild amount of aortic regurgitation. Tricuspid Valve The tricuspid valve is not well visualized secondary to technical limitations. There is no tricuspid stenosis. There is a trace to mild amount of tricuspid regurgitation. There is mild pulmonary hypertension by echo. Right ventricular systolic pressure is estimated to be elevated at 30-40mmHg. Pulmonic Valve The pulmonic valve is not well visualized. Great Vessels The aortic root is not well visualized but is probably normal size. The inferior vena cava was not visualized. Effusions Minimal pericardial effusion. : SHASHA RUIZ > Junior Werner
[2017-09-13] MEDS: DIPHENHYDRAMINE HCL 25 MG CAPSULE PO PRN ×2 (14:39→21:39)
--- NOTE | 2017-09-13 15:41 | PDOC PROGRESS REPORT ---
Subjective Progress Note for:: 09/13/17 Subjective:: Patient seen resting in bed. She denies any chest pain, shortness of breath or dyspnea at rest. She denies any cough. She denies any nausea, vomiting or abdominal pain. She denies fevers or chills. She denies any significant arthralgias or myalgias. Remaining review of systems are negative. Reason For Visit: HTN URGENCY, PUL EDEMA Physical Exam Vital Signs: Temp Pulse Resp BP Pulse Ox 97.5 F 71 16 113/73 97 09/13/17 11:58 09/13/17 14:00 09/13/17 11:58 09/13/17 11:58 09/13/17 11:58 Intake & Output 09/12/17 09/13/17 09/14/17 06:59 06:59 06:59 Intake Total 1174 848 120 Output Total 1100 2550 900 Balance 74 -7472 -780 Weight 89.8 kg 87.6 kg General appearance: PRESENT: no acute distress, obese, well-developed, well- nourished Head exam: PRESENT: atraumatic, normocephalic Eye exam: PRESENT: conjunctiva pink, EOMI, PERRLA. ABSENT: scleral icterus Ear exam: PRESENT: normal external ear exam Mouth exam: PRESENT: moist, tongue midline Neck exam: ABSENT: carotid bruit, JVD, lymphadenopathy, thyromegaly Respiratory exam: PRESENT: clear to auscultation glory, decreased breath sounds - Right base. ABSENT: rales, rhonchi, wheezes Cardiovascular exam: PRESENT: RRR. ABSENT: diastolic murmur, rubs, systolic murmur Pulses: PRESENT: normal dorsalis pedis pul Vascular exam: PRESENT: normal capillary refill GI/Abdominal exam: PRESENT: normal bowel sounds, soft. ABSENT: distended, guarding, mass, organolmegaly, rebound, tenderness Rectal exam: PRESENT: deferred Extremities exam: PRESENT: full ROM. ABSENT: calf tenderness, clubbing, pedal edema Neurological exam: PRESENT: alert, awake, oriented to person, oriented to place , oriented to time, oriented to situation, CN II-XII grossly intact. ABSENT: motor sensory deficit Psychiatric exam: PRESENT: appropriate affect, normal mood. ABSENT: homicidal ideation, suicidal ideation Skin exam: PRESENT: dry, intact, warm. ABSENT: cyanosis, rash Results Laboratory Results: 09/12/17 05:34 09/13/17 05:24 09/13/17 05:24 Sodium 143.4 Potassium 4.1 Chloride 106 Carbon Dioxide 30 Anion Gap 7 BUN 17 Creatinine 0.76 Est GFR ( Amer) > 60 Est GFR (Non-Af Amer) > 60 Glucose 87 Calcium 8.8 09/13/17 05:24 NT-Pro-B Natriuret Pep 4330 H Impressions: Chest X-Ray 09/11/17 01:02 IMPRESSION: Small left lower lobar pneumonia/atelectasis. Recommend CR/CT surveillance including at 7-12 weeks following initiation of clinically warranted therapy. Assessment & Plan - Diagnosis (1) Acute on chronic diastolic heart failure Is this a current diagnosis for this admission?: Yes Plan: Patient has been diuresed and is now euvolemic. She is able to be off oxygen. (2) Flash pulmonary edema Is this a current diagnosis for this admission?: Yes Plan: Secondary to diastolic dysfunction. (3) COPD exacerbation Is this a current diagnosis for this admission?: Yes Plan: Continue inhalers. She is feeling better and off oxygen. (4) Diabetes Qualifiers: Diabetes mellitus type: type 2 Is this a current diagnosis for this admission?: Yes Plan: Continue current medications with sliding scale coverage (5) Hypertension Is this a current diagnosis for this admission?: Yes (6) Hypoxemia Is this a current diagnosis for this admission?: Yes Plan: Per #1. She is now off oxygen (7) Obstructive sleep apnea Is this a current diagnosis for this admission?: Yes - Time Time Spent with patient: 25-34 minutes Total Critical Time (Minutes): 15 Medications reviewed and adjusted accordingly: Yes Anticipated discharge: Home Within: within 24 hours
[2017-09-13] MEDS: MONTELUKAST SODIUM 10 MG TABLET PO SCH (21:39)
[2017-09-14] MEDS: HEPARIN SOD (PORCINE) 5,000 UNIT/ML 1 ML SYRINGE SUBCUT SCH (05:34)
[2017-09-14] MEDS: LEVOTHYROXINE SODIUM 0.112 MG TABLET PO SCH (05:37)
[2017-09-14] MEDS: LEVOTHYROXINE SODIUM 0.025 MG TABLET PO SCH (05:37)
[2017-09-14] MEDS: ESCITALOPRAM OXALATE 10 MG TABLET PO SCH (09:13)
[2017-09-14] MEDS: ASPIRIN 81 MG TABLET, CHEWABLE PO SCH (09:13)
[2017-09-14] MEDS: FUROSEMIDE 40 MG TABLET PO SCH (09:14)
[2017-09-14] MEDS: CARVEDILOL 6.25 MG TABLET PO SCH (09:14)
[2017-09-14] MEDS: AMIODARONE HCL 200 MG TABLET PO SCH (09:14)
[2017-09-14] MEDS: BUSPIRONE HCL 10 MG TABLET PO SCH (09:14)
[2017-09-14] MEDS: DOCUSATE SODIUM 100 MG CAPSULE PO SCH (09:17)
--- NOTE | 2017-09-14 09:49 | PDOC DISCHARGE SUMMARY ---
General - Admit/Disc Date/PCP Admission Date/Primary Care Provider: 09/11/17 02:48 Discharge Date: 09/14/17 - Discharge Diagnosis (1) Acute on chronic diastolic heart failure Is this a current diagnosis for this admission?: Yes Summary: Weight self daily. Report 3 lb weight gain in 24 hr (2) Flash pulmonary edema Is this a current diagnosis for this admission?: Yes Summary: Resolved (3) COPD exacerbation Is this a current diagnosis for this admission?: Yes (4) Diabetes Is this a current diagnosis for this admission?: Yes (5) Hypertension Is this a current diagnosis for this admission?: Yes (6) Hypoxemia Is this a current diagnosis for this admission?: Yes (7) Obstructive sleep apnea Is this a current diagnosis for this admission?: Yes - Additional Information Resuscitation Status: Full Code Discharge Diet: Cardiac Discharge Activity: Activity As Tolerated, Balance Activity w/Rest, Weigh Daily Home Medications: Albuterol Sulfate [Proair Respiclick] 2 puff IH Q2HP PRN 06/16/17 Amiodarone HCl [Cordarone 200 mg Tablet] 200 mg PO DAILY 06/16/17 Aspirin [Aspirin 81 mg Chewable Tablet] 81 mg PO DAILY 06/16/17 Buspirone HCl 15 mg PO BID 06/16/17 Carvedilol 6.25 mg PO Q12 06/16/17 Escitalopram Oxalate 20 mg PO DAILY 06/16/17 Fluticasone/Vilanterol [Breo Ellipta 100-25 Mcg INH] 1 puff IH DAILY 06/16/17 Furosemide 20 mg PO DAILY 06/16/17 Levothyroxine Sodium 137 mcg PO Q6AM 06/16/17 Magnesium Oxide [Magnesium] 400 mg PO BID 06/16/17 Montelukast Sodium 10 mg PO QHS 06/16/17 Multivit-Minerals/Folic Acid [Centrum Multigummies] 80 mcg PO DAILY 06/16/17 L.acidoph,Paracasei, B.lactis [Probiotic] 1 each PO DAILY 09/11/17 Ondansetron [Ondansetron Odt] 4 mg PO Q8H PRN 09/11/17 Pantoprazole Sodium [Protonix] 40 mg PO DAILY 09/11/17 Suvorexant [Belsomra] 5 mg PO DAILY 09/11/17 Acetaminophen [Tylenol 325 mg Tablet] 650 mg PO Q4HP PRN tablet 09/14/17 History of Present Illness Patient complains of: Shortness of breath History of Present Illness: RADHA LAGUERRE is a 72 year old female with a past medical history of hypertension , diabetes, obesity, obstructive sleep apnea, atrial fibrillation and COPD. She presents with an abrupt onset of shortness of breath and nonproductive cough. She denies chest pain, palpitations, EMS reports blood pressure of 180 systolic. She is brought to the emergency room and found to have hypoxia and is placed transdermal nitro paste and BiPAP. Workup reveals a chest x-ray shows left-sided infiltrate, a BNP of 3200. Patient denies chest pain nausea vomiting palpitations. Denies missing medications and is otherwise felt well. Hospital Course Hospital Course: Patient was admitted to the [facility] on telemetry. She was diuresed with IV Lasix twice daily. She was started on nebulized treatments inhalers for her COPD exacerbation. She underwent resting echocardiogram showed her EF to be normal. Grade 2/4 diastolic dysfunction. We discussed heart failure management at length. She did not feel she needs home health therapy at the present time. She will follow-up with her primary care provider as scheduled. She will be discharged home with her daughter. Physical Exam Vital Signs: Temp Pulse Resp BP Pulse Ox 97.7 F 67 20 99/43 L 100 09/14/17 07:42 09/14/17 07:42 09/14/17 07:42 09/14/17 07:42 09/14/17 07:42 Intake & Output 09/13/17 09/14/17 09/15/17 06:59 06:59 06:59 Intake Total 848 375 Output Total 2550 1300 Balance -1702 -925 Weight 87.6 kg General appearance: PRESENT: no acute distress, obese, well-developed, well- nourished Head exam: PRESENT: atraumatic, normocephalic Eye exam: PRESENT: conjunctiva pink, EOMI, PERRLA. ABSENT: scleral icterus Ear exam: PRESENT: normal external ear exam Mouth exam: PRESENT: moist, tongue midline Neck exam: ABSENT: carotid bruit, JVD, lymphadenopathy, thyromegaly Respiratory exam: PRESENT: accessory muscle use Cardiovascular exam: PRESENT: RRR. ABSENT: diastolic murmur, rubs, systolic murmur Pulses: PRESENT: normal dorsalis pedis pul Vascular exam: PRESENT: normal capillary refill GI/Abdominal exam: PRESENT: normal bowel sounds, soft. ABSENT: distended, guarding, mass, organolmegaly, rebound, tenderness Rectal exam: PRESENT: deferred Extremities exam: PRESENT: full ROM. ABSENT: calf tenderness, clubbing, pedal edema Neurological exam: PRESENT: alert, awake, oriented to person, oriented to place , oriented to time, oriented to situation, CN II-XII grossly intact. ABSENT: motor sensory deficit Psychiatric exam: PRESENT: appropriate affect, normal mood. ABSENT: homicidal ideation, suicidal ideation Skin exam: PRESENT: dry, intact, warm. ABSENT: cyanosis, rash Results Laboratory Results: 09/12/17 05:34 09/13/17 05:24 09/13/17 05:24 NT-Pro-B Natriuret Pep 4330 H Impressions: Chest X-Ray 09/11/17 01:02 IMPRESSION: Small left lower lobar pneumonia/atelectasis. Recommend CR/CT surveillance including at 7-12 weeks following initiation of clinically warranted therapy. Qualifiers - * PATIENT BEING DISCHARGED WITH ANY OF THE FOLLOWING DIAGNOSIS: No Plan Discharge Plan: Home with daughter Time Spent: Less than 30 Minutes
[2017-09-14 10:37] VITALS: BP 132/94
== END 2017-09-14 13:10 | disposition home or self-care (01) | DRG 291 ==
LOC: ER 00:59 → EH 02:48 → 3S 04:25
PROVIDERS: ADMIT Internal Medicine; ATTEND Internal Medicine
PROC: 5A09457 Assistance with Respiratory Ventilation, 24-96 Consecutive Hours, Continuous Positive Airway Pressure (ICD-10-PCS; principal; 2017-09-11)
DX: I50.33 Acute on chronic diastolic (congestive) heart failure (principal); J18.1 Lobar pneumonia, unspecified organism; J44.1 Chronic obstructive pulmonary disease with (acute) exacerbation; J44.0 Chronic obstructive pulmonary disease with (acute) lower respiratory infection; I11.0 Hypertensive heart disease with heart failure; I16.0 Hypertensive urgency; G47.33 Obstructive sleep apnea (adult) (pediatric); E11.9 Type 2 diabetes mellitus without complications; R09.02 Hypoxemia; E66.9 Obesity, unspecified; Z68.35 Body mass index [BMI] 35.0-35.9, adult; Z88.2 Allergy status to sulfonamides; Z88.6 Allergy status to analgesic agent; Z88.8 Allergy status to other drugs, medicaments and biological substances
CPT/HCPCS: 36415; 71045; 80048; 80053; 83735; 83880; 84484; 85025; 93005; 93010; 93306; 94660; 99285; J1644; J1940

== ENCOUNTER 2017-09-28 13:31 | Inpatient (IN) | payer MEDICARE ==
[2017-09-28 14:14] LABS: ABSOLUTE EOSINOPHILS # (AUTO) 0.1 10^3/uL (0.0-0.6); ABSOLUTE LYMPHOCYTES (AUTO) 1.2 10^3/uL (0.5-4.7); ABSOLUTE MONOCYTES (AUTO) 0.8 10^3/uL (0.1-1.4); ABSOLUTE NEUT (AUTO) 7.8 10^3/uL (1.7-8.2); BASOPHILS % (AUTO) 0.5 % (0-2); EOSINOPHILS % (AUTO) 1.2 % (0-6); HEMATOCRIT 41.7 % (36.0-47.0); HEMOGLOBIN 13.8 g/dL (12.0-15.5); LYMPHOCYTES % (AUTO) 11.8 % (13-45); MEAN CORPUSCULAR HEMOGLOBIN 30.4 pg (27.0-33.4); MEAN CORPUSCULAR HGB CONC 33.2 g/dL (32.0-36.0); MEAN CORPUSCULAR VOLUME 92 fl (80-97); MONOCYTES % (AUTO) 7.9 % (3-13); PLATELET COUNT 178 10^3/uL (150-450); RED BLOOD COUNT 4.56 10^6/uL (3.72-5.28); RED CELL DISTRIBUTION WIDTH 13.6 % (11.5-14.0); SEGMENTED NEUTROPHILS % (AUTO) 78.6 % (42-78); TOTAL CELLS COUNTED % (AUTO) 100 %
--- NOTE | 2017-09-28 14:45 | ER Document Report ---
ED General - General Chief Complaint: Shortness Of Breath Stated Complaint: SHORTNESS OF BREATH Time Seen by Provider: 09/28/17 14:33 Mode of Arrival: Medic Information source: Patient, Emergency Med Personnel, [facility] Records Notes: 72-year-old female with hypertension, COPD, atrial fibrillation, hypothyroid, congestive heart failure, diabetes presents with complaint of shortness of breath that started 2 days prior to arrival. Patient states that she is chronically short of breath but it has been worse over the last 2 days. Patient describes an associated dry cough that she describes "deep". Patient also complaining of upper chest and back pain with minimal exertion, her last episode of chest pain was last night.. Patient also describing diffuse abdominal pain. Her last bowel movement was today. She denies any diarrhea, black or bloody stools. Patient had a recent hospital admission due to pulmonary edema, congestive heart failure. TRAVEL OUTSIDE OF THE [place] IN LAST 30 DAYS: No - Related Data Allergies/Adverse Reactions: Beta-Blockers (Beta-Adrenergic Bloc Allergy (Verified 09/11/17 01:39) codeine [Codeine] Allergy (Verified 09/11/17 01:39) haloperidol [From Haldol] Allergy (Verified 09/11/17 01:39) haloperidol lactate [From Haldol] Allergy (Verified 09/11/17 01:39) Sulfa (Sulfonamide Antibiotics) Allergy (Verified 09/11/17 01:39) zolpidem tartrate [From Ambien] Allergy (Verified 09/11/17 01:39) Past Medical History - Social History Smoking Status: Unknown if Ever Smoked Family History: COPD Patient has suicidal ideation: No Patient has homicidal ideation: No - Past Medical History Cardiac Medical History: Reports: Hx Atrial Fibrillation, Hx Hypertension, Hx Heart Murmur Pulmonary Medical History: Reports: Hx COPD Renal/ Medical History: Denies: Hx Peritoneal Dialysis GI Medical History: Reports: Hx Gastroesophageal Reflux Disease Psychiatric Medical History: Reports: Hx Depression Past Surgical History: Reports: Hx Abdominal Surgery - gastric bypass. tummy tuck, Hx Thyroid Surgery - Immunizations Hx Diphtheria, Pertussis, Tetanus Vaccination: Yes Hx Pneumococcal Vaccination: 06/03/13 Physical Exam - Vital signs Vitals: Resp Pulse Ox 16 100 09/28/17 14:05 09/28/17 14:05 - Notes Notes: PHYSICAL EXAMINATION: GENERAL: Well-appearing, well-nourished and in no acute distress. HEAD: Atraumatic, normocephalic. EYES: Pupils equal round and reactive to light, extraocular movements intact, conjunctiva are normal. ENT: Nares patent, oropharynx clear without exudates. Moist mucous membranes. NECK: Normal range of motion, supple without lymphadenopathy LUNGS: Diminished breath sounds in the right and left lower lung reilly. HEART: Regular rate, systolic murmur. Regular rhythm ABDOMEN: Soft, nontender, nondistended abdomen. No guarding, no rebound. No masses appreciated. Female : deferred Musculoskeletal: Normal range of motion, no pitting or edema. No cyanosis. NEUROLOGICAL: Cranial nerves grossly intact. Normal speech, normal gait. Normal sensory, motor exams PSYCH: Normal mood, normal affect. SKIN: Warm, Dry, normal turgor, no rashes or lesions noted. Course - Re-evaluation Re-evalutation: Laboratory 09/28/17 09/28/17 09/28/17 13:58 13:58 13:58 WBC 10.0 RBC 4.56 Hgb 13.8 Hct 41.7 MCV 92 MCH 30.4 MCHC 33.2 RDW 13.6 Plt Count 178 Seg Neutrophils % 78.6 H Lymphocytes % 11.8 L Monocytes % 7.9 Eosinophils % 1.2 Basophils % 0.5 Absolute Neutrophils 7.8 Absolute Lymphocytes 1.2 Absolute Monocytes 0.8 Absolute Eosinophils 0.1 Absolute Basophils 0.0 Sodium 140.6 Potassium 4.3 Chloride 105 Carbon Dioxide 28 Anion Gap 8 BUN 14 Creatinine 0.67 Est GFR ( Amer) > 60 Est GFR (Non-Af Amer) > 60 Glucose 98 Calcium 9.1 Total Bilirubin 0.9 Direct Bilirubin 0.3 Neonat Total Bilirubin Not Reportable Neonat Direct Bilirubin Not Reportable Neonat Indirect Bili Not Reportable AST 55 H ALT 24 Alkaline Phosphatase 84 Creatine Kinase 68 CK-MB (CK-2) 3.14 Troponin I 0.031 NT-Pro-B Natriuret Pep Total Protein 6.0 L Albumin 3.1 L Lipase 09/28/17 09/28/17 13:58 13:58 WBC RBC Hgb Hct MCV MCH MCHC RDW Plt Count Seg Neutrophils % Lymphocytes % Monocytes % Eosinophils % Basophils % Absolute Neutrophils Absolute Lymphocytes Absolute Monocytes Absolute Eosinophils Absolute Basophils Sodium Potassium Chloride Carbon Dioxide Anion Gap BUN Creatinine Est GFR ( Amer) Est GFR (Non-Af Amer) Glucose Calcium Total Bilirubin Direct Bilirubin Neonat Total Bilirubin Neonat Direct Bilirubin Neonat Indirect Bili AST ALT Alkaline Phosphatase Creatine Kinase CK-MB (CK-2) Troponin I NT-Pro-B Natriuret Pep 7220 H Total Protein Albumin Lipase 15.3 L Chest X-Ray 09/28/17 13:35 IMPRESSION: Small bilateral pleural effusions with bibasilar airspace disease atelectasis versus pneumonia 09/28/17 15:25 Chest x-ray reveals small bilateral pleural effusions that were not present on previous x-ray 2 weeks ago. Vanegas catheter was placed for strict I&O's. Patient was given Lasix 40 mg IV, nitro paste was placed on the patient's chest , patient was placed on CPAP. 09/28/17 16:[address] Rogel regarding admission for CHF exacerbation. He will be down to see the patient. 72-year-old female with atrial fibrillation, hypertension, COPD, congestive heart failure presents with complaint of worsening shortness of breath over the last 2 days. Patient also complaining of upper chest pain and upper back pain. Patient also describing a dry cough. Patient was seen by myself upon arrival. Vital signs were reviewed. Patient is afebrile, not tachycardic. Patient does not appear toxic or dehydrated. They are in no acute distress. Previous medical records and nursing notes reviewed. She is exam significant for a systolic murmur and bilateral diminished breath sounds in the right and left lower lung field. Significant findings included chest x-ray that shows new small bilateral pleural effusions. Patient's BNP is 7220 this is increased from 4002 weeks ago. CBC is without leukocytosis or anemia. CMP shows no electrolyte abnormalities and normal renal function. Patient was administered Lasix 40 mg IV, nitro paste was placed and she was placed on CPAP. 09/28/17 19:59 Patient was admitted to the hospitalist for a CHF exacerbation. - Vital Signs Vital signs: Temp Pulse Resp BP Pulse Ox 98.2 F 26 H 135/73 H 100 09/28/17 17:13 09/28/17 18:31 09/28/17 18:31 09/28/17 18:31 - Laboratory Result Diagrams: 09/28/17 13:58 09/28/17 13:58 Laboratory results interpreted by me: 09/28/17 09/28/17 09/28/17 13:58 13:58 13:58 Seg Neutrophils % 78.6 H Lymphocytes % 11.8 L ABG pH ABG pO2 ABG Total CO2 AST 55 H NT-Pro-B Natriuret Pep 7220 H Total Protein 6.0 L Albumin 3.1 L Lipase Urine Ketones Urine Urobilinogen 09/28/17 09/28/17 09/28/17 13:58 15:35 15:35 Seg Neutrophils % Lymphocytes % ABG pH 7.46 H ABG pO2 102.9 H ABG Total CO2 27.2 H AST NT-Pro-B Natriuret Pep Total Protein Albumin Lipase 15.3 L Urine Ketones 20 H Urine Urobilinogen 2.0 H - Diagnostic Test Radiology reviewed: Image reviewed, Reports reviewed - EKG Interpretation by Me EKG shows normal: Sinus rhythm Rate: Normal Rhythm: NSR [place]/QRS: LBBB Heart block present: 1st Degree When compared to previous EKG there are: No significant change Discharge - Discharge Clinical Impression: Shortness of breath CHF exacerbation Qualifiers: Heart failure type: unspecified Qualified Code(s): I50.9 - Heart failure, unspecified Hypertension Qualifiers: Hypertension type: unspecified Qualified Code(s): I10 - Essential (primary) hypertension Diabetes Qualifiers: Diabetes mellitus type: type 2 Diabetes mellitus long-term insulin use: without emt intermediate use Diabetes mellitus complication status: without complication Qualified Code(s): E11.9 - Type 2 diabetes mellitus without complications Condition: Good Disposition: ADMITTED INPATIENT Admitting Provider: Hospitalist Unit Admitted: [facility]
--- NOTE | 2017-09-28 14:50 | RADIOLOGY REPORT (SQ) ---
EXAM DESCRIPTION: CHEST SINGLE VIEW COMPLETED DATE/TIME: 09/28/2017 2:38 pm REASON FOR STUDY: bed 16 db COMPARISON: CT angio chest 08/15/2016 Chest films 03/24/2015, 08/15/2016, 06/19/2017, 09/11/2017 EXAM PARAMETERS: NUMBER OF VIEWS: One view. TECHNIQUE: Single frontal radiographic view of the chest acquired. RADIATION DOSE: NA LIMITATIONS: None. FINDINGS: LUNGS AND PLEURA: Small bilateral pleural effusions are present. There is minimal bibasilar airspace disease atelectasis versus pneumonia. No pneumothorax. MEDIASTINUM AND HILAR STRUCTURES: No masses. Contour normal. HEART AND VASCULAR STRUCTURES: Moderate cardiomegaly BONES: No acute findings. HARDWARE: None in the chest. OTHER: Surgical clips at the GE junction. Patient has a 1.7 cm a peripherally calcified splenic lynda ry aneurysm unchanged from CT angio chest 08/15/2016 of doubtful clinical significance. IMPRESSION: Small bilateral pleural effusions with bibasilar airspace disease atelectasis versus pne umonia TECHNICAL DOCUMENTATION: JOB ID: [id number] [employer]- All Rights Reserved Reading location - IP/workstation name: [email or web address]
[2017-09-28 14:57] LABS: ALANINE AMINOTRANSFERASE 24 U/L (9-52); ALBUMIN 3.1 g/dL (3.5-5.0); ALKALINE PHOSPHATASE 84 U/L (38-126); ANION GAP 8 (5-19); ASPARTATE AMINO TRANSFERASE 55 U/L (14-36); BILIRUBIN,DIRECT 0.3 mg/dL (0.0-0.4); BILIRUBIN,TOTAL 0.9 mg/dL (0.2-1.3); BLOOD UREA NITROGEN 14 mg/dL (7-20); CALCIUM 9.1 mg/dL (8.4-10.2); CARBON DIOXIDE 28 mmol/L (22-30); CHLORIDE 105 mmol/L (98-107); CREATINE KINASE 68 U/L (30-135); GLUCOSE 98 mg/dL (75-110); POTASSIUM 4.3 mmol/L (3.6-5.0); SODIUM 140.6 mmol/L (137-145)
[2017-09-28 15:09] LABS: CREATINE KINASE MB 3.14 ng/mL (<4.55); TROPONIN I 0.031 ng/mL
[2017-09-28] MEDS ORDERED: FUROSEMIDE INJ/PF 40 MG/4 ML SDV IV ONE (15:18)
[2017-09-28] MEDS ORDERED: NITROGLYCERIN 2% OINTMENT 1 GM PACKET TP ONE (15:20)
[2017-09-28 16:09] LABS: ARTERIAL BLOOD BASE EXCESS 2.3 mmol/L; ARTERIAL BLOOD H2CO3 1.13 mmol/L (1.05-1.35); ARTERIAL BLOOD PCO2 37.4 mmHg (35-45); ARTERIAL BLOOD PH 7.46 (7.35-7.45); ARTERIAL BLOOD PO2 102.9 mmHg (80-100); ARTERIAL BLOOD TOTAL CO2 27.2 mmol/L (21-25)
[2017-09-28 16:10] LABS: ARTERIAL BLOOD FIO2 3L
[2017-09-28] MEDS ORDERED: POLYETHYLENE GLYCOL 3350 POWDER 17 GM/1 PACKET PO PRN (16:40)
[2017-09-28] MEDS ORDERED: ALBUTEROL SULFATE 0.083% NEB 2.5 MG/3 ML AMPUL NEB PRN (16:45)
--- NOTE | 2017-09-28 17:01 | PDOC H&P ---
History of Present Illness Patient complains of: Short of breath History of Present Illness: RADHA LAGUERRE is a 72 year old female discharged from this institution on 09/14 during his stay for an acute exacerbation of diastolic heart failure. An echocardiogram done that admission showed a grossly normal ejection fraction, no valvular abnormalities, with grade 2 out of 4 diastolic dysfunction. She does not appear to have been weighing herself regularly. Over the last couple days she is been noticing increasing dyspnea on exertion. It is unclear how conscientious she is about her salt intake. She denied any chest pain though she does describe what sounds like chest tightness with exertion, nausea, lightheadedness. Past Medical History Cardiac Medical History: Reports: Atrial Fibrillation, Congestive Heart Failure - Diastolic, Hypertension, Heart Murmur Pulmonary Medical History: Reports: Chronic Obstructive Pulmonary Disease (COPD) GI Medical History: Reports: Gastroesophageal Reflux Disease Psychiatric Medical History: Reports: Depression Social History Information Source: Patient, [facility] Smoking Status: Never Smoker Frequency of Alcohol Use: Rare Hx Recreational Drug Use: No Hx Prescription Drug Abuse: No - Advance Directive Resuscitation Status: Full Code Family History Family History: COPD Parental Family History Reviewed: Yes Children Family History Reviewed: No Sibling(s) Family History Reviewed.: No Medication/Allergy Home Medications: Albuterol Sulfate [Proair Respiclick] 2 puff IH Q2HP PRN 06/16/17 Amiodarone HCl [Cordarone 200 mg Tablet] 200 mg PO DAILY 06/16/17 Aspirin [Aspirin 81 mg Chewable Tablet] 81 mg PO DAILY 06/16/17 Buspirone HCl 15 mg PO BID 06/16/17 Carvedilol 6.25 mg PO Q12 06/16/17 Escitalopram Oxalate 20 mg PO DAILY 06/16/17 Fluticasone/Vilanterol [Breo Ellipta 100-25 Mcg INH] 1 puff IH DAILY 06/16/17 Furosemide 20 mg PO DAILY 06/16/17 Levothyroxine Sodium 137 mcg PO Q6AM 06/16/17 Magnesium Oxide [Magnesium] 400 mg PO BID 06/16/17 Montelukast Sodium 10 mg PO QHS 06/16/17 Multivit-Minerals/Folic Acid [Centrum Multigummies] 80 mcg PO DAILY 06/16/17 L.acidoph,Paracasei, B.lactis [Probiotic] 1 each PO DAILY 09/11/17 Ondansetron [Ondansetron Odt] 4 mg PO Q8H PRN 09/11/17 Pantoprazole Sodium [Protonix] 40 mg PO DAILY 09/11/17 Suvorexant [Belsomra] 5 mg PO DAILY 09/11/17 Acetaminophen [Tylenol 325 mg Tablet] 650 mg PO Q4HP PRN tablet 09/14/17 Allergies/Adverse Reactions: Beta-Blockers (Beta-Adrenergic Bloc Allergy (Verified 09/11/17 01:39) codeine [Codeine] Allergy (Verified 09/11/17 01:39) haloperidol [From Haldol] Allergy (Verified 09/11/17 01:39) haloperidol lactate [From Haldol] Allergy (Verified 09/11/17 01:39) Sulfa (Sulfonamide Antibiotics) Allergy (Verified 09/11/17 01:39) zolpidem tartrate [From Ambien] Allergy (Verified 09/11/17 01:39) Review of Systems All systems: reviewed and no additional remarkable complaints except as stated Physical Exam Vital Signs: Temp Pulse Resp BP Pulse Ox 98.3 F 09/28/17 14:13 Intake & Output 09/27/17 09/28/17 09/29/17 05:59 05:59 05:59 Weight 199 lb 4.766 oz General appearance: PRESENT: no acute distress Exam: Lying on the gurney on BiPAP. Pleasant, interactive Respiratory exam: PRESENT: rales - Bilateral posteriorly Cardiovascular exam: PRESENT: RRR GI/Abdominal exam: PRESENT: soft Extremities exam: PRESENT: other - No edema Musculoskeletal exam: PRESENT: normal inspection Neurological exam: PRESENT: alert Psychiatric exam: PRESENT: appropriate affect Skin exam: PRESENT: warm Results Laboratory Results: 09/28/17 13:58 09/28/17 13:58 09/28/17 09/28/17 09/28/17 13:58 13:58 13:58 WBC 10.0 RBC 4.56 Hgb 13.8 Hct 41.7 MCV 92 MCH 30.4 MCHC 33.2 RDW 13.6 Plt Count 178 Seg Neutrophils % 78.6 H Lymphocytes % 11.8 L Monocytes % 7.9 Eosinophils % 1.2 Basophils % 0.5 Absolute Neutrophils 7.8 Absolute Lymphocytes 1.2 Absolute Monocytes 0.8 Absolute Eosinophils 0.1 Absolute Basophils 0.0 Carbonic Acid HCO3/H2CO3 Ratio ABG pH ABG pCO2 ABG pO2 ABG HCO3 ABG O2 Saturation ABG Base Excess FiO2 Sodium 140.6 Potassium 4.3 Chloride 105 Carbon Dioxide 28 Anion Gap 8 BUN 14 Creatinine 0.67 Est GFR ( Amer) > 60 Est GFR (Non-Af Amer) > 60 Glucose 98 Calcium 9.1 Total Bilirubin 0.9 AST 55 H ALT 24 Alkaline Phosphatase 84 Total Protein 6.0 L Albumin 3.1 L Lipase 15.3 L 09/28/17 15:35 WBC RBC Hgb Hct MCV MCH MCHC RDW Plt Count Seg Neutrophils % Lymphocytes % Monocytes % Eosinophils % Basophils % Absolute Neutrophils Absolute Lymphocytes Absolute Monocytes Absolute Eosinophils Absolute Basophils Carbonic Acid 1.13 HCO3/H2CO3 Ratio 23:1 ABG pH 7.46 H ABG pCO2 37.4 ABG pO2 102.9 H ABG HCO3 26.0 ABG O2 Saturation 98.0 ABG Base Excess 2.3 FiO2 3L Sodium Potassium Chloride Carbon Dioxide Anion Gap BUN Creatinine Est GFR ( Amer) Est GFR (Non-Af Amer) Glucose Calcium Total Bilirubin AST ALT Alkaline Phosphatase Total Protein Albumin Lipase 09/28/17 09/28/17 09/28/17 13:58 13:58 13:58 Creatine Kinase 68 CK-MB (CK-2) 3.14 Troponin I 0.031 NT-Pro-B Natriuret Pep 7220 H Impressions: Chest X-Ray 09/28/17 13:35 IMPRESSION: Small bilateral pleural effusions with bibasilar airspace disease atelectasis versus pneumonia Assessment & Plan - Diagnosis (1) Acute hypoxemic respiratory failure Is this a current diagnosis for this admission?: Yes Plan: Continue supplemental oxygen and wean as tolerated (2) Hypertension Qualifiers: Hypertension type: unspecified Qualified Code(s): I10 - Essential (primary ) hypertension Is this a current diagnosis for this admission?: Yes Plan: Continue home medications (3) Acute on chronic diastolic heart failure Is this a current diagnosis for this admission?: Yes Plan: Diuresis as tolerated and monitor labs closely (4) Obstructive sleep apnea Is this a current diagnosis for this admission?: Yes Plan: Continue CPAP at night and as needed
[2017-09-28 17:30] LABS: APPEARANCE,URINE CLEAR; BILIRUBIN,URINE NEGATIVE (NEGATIVE); COLOR,URINE YELLOW; GLUCOSE, URINE NEGATIVE (NEGATIVE); KETONES,URINE 20 mg/dL (NEGATIVE); LEUKOCYTE ESTERASE,URINE NEGATIVE (NEGATIVE); NITRITE,URINE NEGATIVE (NEGATIVE); PROTEIN,URINE NEGATIVE (NEGATIVE)
[2017-09-28] MEDS ORDERED: (PENDING PHARMACY ID) (Magnesium Oxide [Magnesium] 400 MG) PO SCH (18:00)
[2017-09-28] MEDS ORDERED: (PENDING PHARMACY ID) (Buspirone Hcl [Buspirone Hcl] 15 MG) PO SCH (18:00)
[2017-09-28] MEDS ORDERED: ENOXAPARIN SODIUM INJ 40 MG/0.4 ML DISP.SYRIN SUBCUT ONE (18:30)
[2017-09-28] MEDS: FUROSEMIDE INJ/PF 40 MG/4 ML SDV IV SCH (21:16)
[2017-09-28] MEDS: CARVEDILOL 6.25 MG TABLET PO SCH (21:32)
[2017-09-28] MEDS: ACETAMINOPHEN 325 MG TABLET PO PRN (21:32)
[2017-09-28] MEDS: MONTELUKAST SODIUM 10 MG TABLET PO SCH (21:33)
[2017-09-28] MEDS: MAGNESIUM OXIDE 400 MG TABLET PO SCH (22:43)
[2017-09-28] MEDS: BUSPIRONE HCL 10 MG TABLET PO SCH (22:43)
--- NOTE | 2017-09-28 23:33 | EKG REPORT ---
SEVERITY:- ABNORMAL ECG - SINUS RHYTHM FIRST DEGREE AV BLOCK LEFT BUNDLE BRANCH BLOCK : Confirmed by: Junior eWrner 28-Sep-2017 23:32:00
[2017-09-29] MEDS: FUROSEMIDE INJ/PF 40 MG/4 ML SDV IV SCH ×4 (00:31→21:08)
[2017-09-29] MEDS: LEVOTHYROXINE SODIUM 0.112 MG TABLET PO SCH (05:23)
[2017-09-29] MEDS: LEVOTHYROXINE SODIUM 0.025 MG TABLET PO SCH (05:25)
[2017-09-29] MEDS: LANSOPRAZOLE 30 MG TAB.RAP.DR PO SCH (05:29)
[2017-09-29 05:58] LABS: ALBUMIN 2.7 g/dL (3.5-5.0); BLOOD UREA NITROGEN 17 mg/dL (7-20); CALCIUM 8.8 mg/dL (8.4-10.2); GLUCOSE 101 mg/dL (75-110); PHOSPHORUS 3.8 mg/dL (2.5-4.5); POTASSIUM 3.8 mmol/L (3.6-5.0)
[2017-09-29] MEDS ORDERED: (PENDING PHARMACY ID) (Levothyroxine Sodium [Levothyroxine Sodium] 137 MCG) PO SCH (06:00)
[2017-09-29 06:03] LABS: ANION GAP 5 (5-19); CARBON DIOXIDE 31 mmol/L (22-30); CHLORIDE 104 mmol/L (98-107); SODIUM 140.2 mmol/L (137-145)
[2017-09-29] MEDS ORDERED: MULTIVIT MINERALS PO SCH (10:00)
[2017-09-29] MEDS ORDERED: AMIODARONE HCL 200 MG TABLET PO SCH (10:00)
[2017-09-29] MEDS ORDERED: FOLIC ACID PO SCH (10:00)
[2017-09-29] MEDS ORDERED: (PENDING PHARMACY ID) (Escitalopram Oxalate [Escitalopram Oxalate] 20 MG) PO SCH (10:00)
[2017-09-29] MEDS ORDERED: (PENDING PHARMACY ID) (Fluticasone/Vilanterol [Breo Ellipta 100-25 Mcg Inh] 1 PUFF) IH SCH (10:00)
[2017-09-29] MEDS: ENOXAPARIN SODIUM INJ 40 MG/0.4 ML DISP.SYRIN SUBCUT SCH (11:12)
[2017-09-29] MEDS: MULTIVITAMIN TABLET PO SCH (11:13)
[2017-09-29] MEDS: BUSPIRONE HCL 10 MG TABLET PO SCH ×2 (11:13→21:09)
[2017-09-29] MEDS: MAGNESIUM OXIDE 400 MG TABLET PO SCH ×2 (11:13→21:09)
[2017-09-29] MEDS: ASPIRIN 81 MG TABLET, CHEWABLE PO SCH (11:15)
[2017-09-29] MEDS: CARVEDILOL 6.25 MG TABLET PO SCH ×2 (11:15→21:15)
[2017-09-29] MEDS: ACETAMINOPHEN 325 MG TABLET PO PRN (11:22)
[2017-09-29] MEDS: ESCITALOPRAM OXALATE 10 MG TABLET PO SCH (12:14)
[2017-09-29] MEDS ORDERED: ESCITALOPRAM OXALATE 10 MG TABLET PO ONE (12:30)
--- NOTE | 2017-09-29 14:46 | Physician Advisory Note ---
Physician Advisor ProgressNote .: Pursuant to the plan for [facility], I have reviewed the medical record for this patient. Physician Advisor Statement: Please document, if you agree: 1. Findings supporting dx of Acute Hypoxemic Resp Failure (any increased work of breathing/retractions to go with the O2 sat 94% on 3L in ED?) - or is this dx ruled out & pt had "hypoxemia" alone? - ED dr note states pt was "well-appearing" & "NAD", only lung finding was "diminished BS". - ED nurse documentation states breathing "nonlabored". - H&P states pt "NAD" as well. 2. Type of Afib: chronic or paroxysmal? Thanks! CK An aside: CHF diast exac supported by rales on exam (H&P), orthopnea (ED nurse) , chest heaviness/CP with cough/exertion, bilat pleural effusions, TREJO (H&P), O2 sat down as above.
--- NOTE | 2017-09-29 16:36 | PDOC PROGRESS REPORT ---
Subjective Progress Note for:: 09/29/17 Subjective:: Comfortable on nasal cannula. Reports brisk urinary output. No new complaints. Reason For Visit: HEART FAILURE Physical Exam Vital Signs: Temp Pulse Resp BP Pulse Ox 98.2 F 75 22 H 94/57 L 98 09/29/17 15:40 09/29/17 15:40 09/29/17 15:40 09/29/17 15:40 09/29/17 16:04 Intake & Output 09/28/17 09/29/17 09/30/17 05:59 05:59 05:59 Intake Total 201 444 Output Total 500 1450 Balance -299 -1006 Weight 194 lb 14.218 oz General appearance: PRESENT: no acute distress, obese Respiratory exam: PRESENT: rales - Dependent rales laterally Cardiovascular exam: PRESENT: RRR GI/Abdominal exam: PRESENT: soft Extremities exam: PRESENT: other - No edema Musculoskeletal exam: PRESENT: normal inspection Neurological exam: PRESENT: alert Psychiatric exam: PRESENT: appropriate affect Skin exam: PRESENT: warm Results Laboratory Results: 09/29/17 05:33 09/29/17 09/29/17 05:33 05:33 Sodium 140.2 Potassium 3.8 Chloride 104 Carbon Dioxide 31 H Anion Gap 5 BUN 17 Creatinine 0.82 Est GFR ( Amer) > 60 Est GFR (Non-Af Amer) > 60 Glucose 101 Calcium 8.8 Phosphorus 3.8 Magnesium 1.8 Albumin 2.7 L TSH 1.38 09/29/17 05:33 NT-Pro-B Natriuret Pep 7350 H Impressions: Chest X-Ray 09/28/17 13:35 IMPRESSION: Small bilateral pleural effusions with bibasilar airspace disease atelectasis versus pneumonia Assessment & Plan - Diagnosis (1) Acute hypoxemic respiratory failure Is this a current diagnosis for this admission?: Yes Plan: Continue supplemental oxygen and wean as tolerated (2) Hypertension Qualifiers: Hypertension type: unspecified Qualified Code(s): I10 - Essential (primary ) hypertension Is this a current diagnosis for this admission?: Yes Plan: Continue home medications (3) Acute on chronic diastolic heart failure Is this a current diagnosis for this admission?: Yes Plan: Blood pressure is starting to get a little low, so I will back off on her diuretics. Monitor labs closely. I will get a stress test, and consult cardiology. (4) Obstructive sleep apnea Is this a current diagnosis for this admission?: Yes Plan: Continue CPAP at night and as needed (5) Afib Qualifiers: Atrial fibrillation type: chronic Qualified Code(s): I48.2 - Chronic atrial fibrillation Is this a current diagnosis for this admission?: Yes Plan: Maintained in sinus rhythm with amiodarone and Coreg.
[2017-09-29] MEDS: MONTELUKAST SODIUM 10 MG TABLET PO SCH (21:09)
[2017-09-30] MEDS: LEVOTHYROXINE SODIUM 0.025 MG TABLET PO SCH (05:29)
[2017-09-30] MEDS: LEVOTHYROXINE SODIUM 0.112 MG TABLET PO SCH (05:29)
[2017-09-30] MEDS: LANSOPRAZOLE 30 MG TAB.RAP.DR PO SCH (05:29)
[2017-09-30 05:37] LABS: ALBUMIN 2.6 g/dL (3.5-5.0); ANION GAP 10 (5-19); BLOOD UREA NITROGEN 23 mg/dL (7-20); CALCIUM 8.6 mg/dL (8.4-10.2); CARBON DIOXIDE 30 mmol/L (22-30); CHLORIDE 102 mmol/L (98-107); GLUCOSE 86 mg/dL (75-110); PHOSPHORUS 3.5 mg/dL (2.5-4.5); POTASSIUM 3.6 mmol/L (3.6-5.0); SODIUM 141.9 mmol/L (137-145)
--- NOTE | 2017-09-30 09:31 | RADIOLOGY REPORT (SQ) ---
EXAM DESCRIPTION: CT CHEST WITHOUT COMPLETED DATE/TIME: 09/30/2017 8:56 am REASON FOR STUDY: HI-RES for Amiadarone lung toxocity COMPARISON: CT angio chest 08/15/2016 TECHNIQUE: Prone and supine high resolution technique imaging performed through the lungs windowed f or lung windows. Additional focused imaging through the levels of the aortic arch, adonis and diaphr agm. Limited evaluation of the mediastinum. All CT scanners at this facility use dose modulation, iterative reconstruction, and/or weight based d osing when appropriate to reduce radiation dose to as low as reasonably achievable (ALARA). [facility]: Dose Right [facility]: CareDose [facility]: Dose Right [facility]: Teradose 4D [facility]: [employer] RADIATION DOSE: CT Rad equipment meets quality standard of care and radiation dose reduction techniq ues were employed. CTDIvol: 2.2 mGy. DLP: 136 mGy-cm. mGy. LIMITATIONS: None. FINDINGS: LUNGS AND PLEURA: No hyperdense pulmonary lesions worrisome for amiodarone toxicity. The patient has small bilateral pleural effusions with bibasilar airspace disease atelectasis versus pneumonia. No interstitial changes. No peribronchial cuffing. No ground-glass appearance. No bronchiectasis. No pleural calcifications. LIMITED MEDIASTINUM: No masses. BONES: No significant findings. OTHER: Post gastric bypass with distended fundal pouch/hiatal hernia. IMPRESSION: No high-resolution chest CT evidence of interstitial lung disease or amiodarone related to pulmonary toxicity. Small bilateral pleural effusions with bibasilar airspace disease likely atelectasis Post gastric bypass with distended fundal pouch and hiatal hernia TECHNICAL DOCUMENTATION: JOB ID: [id number] Quality ID # [id number]: Final reports with documentation of one or more dose reduction techniques (e.g., Au tomated exposure control, adjustment of the mA and/or kV according to patient size, use of iterative reconstruction technique) 2010 [employer]- All Rights Reserved Reading location - IP/workstation name: [email or web address]
[2017-09-30] MEDS ORDERED: LEVALBUTEROL HCL NEB 1.25 MG/3 ML AMPUL NEB PRN (10:03)
[2017-09-30] MEDS: BUSPIRONE HCL 10 MG TABLET PO SCH ×2 (10:41→21:37)
[2017-09-30] MEDS: MULTIVITAMIN TABLET PO SCH (10:41)
[2017-09-30] MEDS: MAGNESIUM OXIDE 400 MG TABLET PO SCH ×2 (10:42→21:37)
[2017-09-30] MEDS: ASPIRIN 81 MG TABLET, CHEWABLE PO SCH (10:42)
[2017-09-30] MEDS: ESCITALOPRAM OXALATE 10 MG TABLET PO SCH (10:42)
--- NOTE | 2017-09-30 10:43 | PDOC PROGRESS REPORT ---
Subjective Progress Note for:: 09/30/17 Subjective:: Patient's blood sugar blood pressure has been running on the low side at around 100 systolic she has no chest pain minimal shortness of breath She underwent resting Cardiolite stress test this morning Reason For Visit: HEART FAILURE Physical Exam Vital Signs: Temp Pulse Resp BP Pulse Ox 97.3 F 112 H 18 102/88 H 96 09/30/17 07:28 09/30/17 08:22 09/30/17 08:22 09/30/17 07:28 09/30/17 08:22 Intake & Output 09/29/17 09/30/17 10/01/17 00:59 00:59 00:59 Intake Total 168 1763 9 Output Total 500 2750 550 Balance -332 -987 -541 Weight 88.4 kg 87.7 kg General appearance: PRESENT: no acute distress, cooperative, obese Head exam: PRESENT: atraumatic, normocephalic Eye exam: PRESENT: conjunctiva pink, EOMI, PERRLA. ABSENT: scleral icterus Neck exam: ABSENT: carotid bruit, JVD, lymphadenopathy, thyromegaly Respiratory exam: PRESENT: decreased breath sounds. ABSENT: accessory muscle use, rales, tachypnea, wheezes Cardiovascular exam: PRESENT: RRR. ABSENT: diastolic murmur, rubs, systolic murmur GI/Abdominal exam: PRESENT: normal bowel sounds, soft. ABSENT: distended, guarding, mass, organolmegaly, rebound, tenderness Extremities exam: PRESENT: full ROM. ABSENT: calf tenderness, clubbing, pedal edema Neurological exam: PRESENT: alert, altered, CN II-XII grossly intact Psychiatric exam: PRESENT: appropriate affect Results Laboratory Results: 09/30/17 04:38 09/30/17 04:38 Sodium 141.9 Potassium 3.6 Chloride 102 Carbon Dioxide 30 Anion Gap 10 BUN 23 H Creatinine 0.86 Est GFR ( Amer) > 60 Est GFR (Non-Af Amer) > 60 Glucose 86 Calcium 8.6 Phosphorus 3.5 Magnesium 1.8 Albumin 2.6 L 09/29/17 09/30/17 05:33 04:38 NT-Pro-B Natriuret Pep 7350 H 2130 H Impressions: Chest X-Ray 09/28/17 13:35 IMPRESSION: Small bilateral pleural effusions with bibasilar airspace disease atelectasis versus pneumonia Chest CT 09/30/17 00:00 IMPRESSION: No high-resolution chest CT evidence of interstitial lung disease or amiodarone related to pulmonary toxicity. Small bilateral pleural effusions with bibasilar airspace disease likely atelectasis Post gastric bypass with distended fundal pouch and hiatal hernia Assessment & Plan - Diagnosis (2) Acute on chronic diastolic heart failure Is this a current diagnosis for this admission?: Yes Plan: Has improved Lasix is on hold now as the blood pressure is low (3) Acute hypoxemic respiratory failure Is this a current diagnosis for this admission?: Yes (4) Hypertension Qualifiers: Hypertension type: unspecified Qualified Code(s): I10 - Essential (primary ) hypertension Is this a current diagnosis for this admission?: Yes Plan: Controlled (5) Obstructive sleep apnea Is this a current diagnosis for this admission?: Yes Plan: Continue CPAP - Time Time Spent with patient: 25-34 minutes - Inpatient Certification Based on my medical assessment, after consideration of the patient's comorbidities, presenting symptoms, or acuity I expect that the services needed warrant INPATIENT care.: Yes I certify that my determination is in accordance with my understanding of Medicare's requirements for reasonable and necessary INPATIENT services [42 CFR 412.3e].: Yes Medical Necessity: Need For Continuous Telemetry Monitoring, Risk of Complication if Not Cared For in Hospital
[2017-09-30] MEDS: ENOXAPARIN SODIUM INJ 40 MG/0.4 ML DISP.SYRIN SUBCUT SCH (10:44)
[2017-09-30] MEDS ORDERED: CARVEDILOL 6.25 MG TABLET PO SCH (10:45)
[2017-09-30] MEDS: CARVEDILOL 6.25 MG TABLET PO SCH (10:57)
[2017-09-30] MEDS: FUROSEMIDE INJ/PF 40 MG/4 ML SDV IV SCH (10:59)
[2017-09-30] MEDS ORDERED: CARVEDILOL 3.125 MG TABLET PO ONE (11:30)
[2017-09-30] MEDS ORDERED: NORMAL SALINE 250 ML IV ONE (12:41)
[2017-09-30] MEDS ORDERED: DIGOXIN INJ 0.5 MG/2 ML AMPULE IV ONE (13:00)
[2017-09-30] MEDS ORDERED: METHYLPREDNISOLONE DOSEPAK (4 MG/TAB) 21 TAB/DSPK PO PRN (18:48)
[2017-09-30] MEDS: MONTELUKAST SODIUM 10 MG TABLET PO SCH (21:37)
[2017-09-30] MEDS ORDERED: CARVEDILOL 3.125 MG TABLET PO SCH (22:00)
--- NOTE | 2017-09-30 22:34 | CONSULTATION REPORT E ---
Consultation Report NAME: RADHA LAGUERRE : 1945 AGE: 72Y DATE: 09/30/2017 325 A TO: MARIZA NORTON M.D. FROM: Enrrique HORNER, Requesting Physician TIME OF VISIT: Patient seen at 8:00 this morning. REASON FOR CONSULTATION: Shortness of breath, possible congestive heart failure, possible underlying coronary artery disease, and history of paroxysmal atrial fibrillation. HISTORY OF PRESENT ILLNESS: The patient is a pleasant 72-year-old female with known history of paroxysmal atrial fibrillation, maintained in sinus rhythm on amiodarone, history of hypertension, and history of asthma/COPD who states since the past 5 years, she has been having shortness of breath. This has increased over the past few weeks and especially a few days prior to admission. She has chronic 2-pillow orthopnea. There is no leg edema. There is no PND. There is no chest pain. The patient recently was admitted earlier this month with diastolic heart failure and at that time her LV ejection fraction was normal with a grade 2/4 diastolic dysfunction. There was no significant valvular disease. The patient does have some cough which is dry, not productive of any sputum. She states that she has had intermittent wheezing. She denies any palpitations or syncope and has no symptoms of recurrence of atrial fibrillation. There is no TIA or CVA. PAST MEDICAL HISTORY: Positive for history of paroxysmal atrial fibrillation, maintained in sinus rhythm on amiodarone. She also has a history of GERD and hypothyroidism. She has no history of diabetes mellitus. She has history of hypertension. The patient is on Coreg as well as amiodarone. She has been on amiodarone for at least 9 months. There is no history of TIA or CVA. 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 There is not much known about the treatment of her Hodgkin's disease. PAST SURGICAL HISTORY: Positive for a history of: 1. Gastric bypass surgery. 2. Cholecystectomy. 3. Appendectomy. 4. Tonsillectomy and adenoidectomy. 5. She also has a history of throat surgery. 6. She has also had a tummy tuck. FAMILY HISTORY: Positive for coronary artery disease in her father but he of cancer. ALLERGIES: 1. CODEINE. 2. HALDOL. 3. SULFA. 4. BETA BLOCKERS. SHE GETS BRADYCARDIA BUT THE PATIENT IS ON COREG AT HOME. 5. TARTRATE. SOCIAL HISTORY: The patient has never smoked. There is no history of ETOH abuse. REVIEW OF SYSTEMS: CONSTITUTIONAL: Complains of generalized fatigue and weakness. HEAD: Denies headaches or head injury. EYES: No history of amblyopia or diplopia. No history of amaurosis fugax. EARS: No history of hearing loss. No history of tinnitus. No history of recurrent ear infections. NOSE: No history of hay fever. No history of nosebleeds. No history of nasal polyps. MOUTH: No history of altered taste sensation. No ulcers in the mouth. No bleeding from the gums. THROAT: No odynophagia or dysphagia. No history of recurrent sore throats. SKIN: There are no skin rashes or skin lesions. There is no pruritus. There is no yellowish discoloration of the skin. There is no psoriasis or skin cancer. NECK: No painless or painful swelling of the neck. No goiter. LUNGS: History of asthma and COPD. The patient has intermittent wheezing and shortness of breath which has increased. She, by pulmonary function test done today, has a moderately decreased diffusion capacity and mild small airway disease and also has restrictive lung disease. She has no history of hemoptysis, no history of pleuritic chest pain. She has 2-pillow orthopnea. She has a history of sleep apnea and states wears CPAP. CARDIAC: History of paroxysmal atrial fibrillation, has remained in sinus rhythm on amiodarone but the patient does have increasing shortness of breath and also the patient has restrictive lung disease and also moderately decreased diffusion capacity, both of which could be early signs of amiodarone toxicity, although the high resolution CT of the chest does not show evidence of pulmonary toxicity of amiodarone. There is no history of myocardial infarction. She has a past history of congestive heart failure when she was in atrial fibrillation. The patient also recently was admitted for diastolic heart failure secondary to LV diastolic dysfunction which is grade 2/4 or moderate diastolic dysfunction. There is no history of syncope, no recent palpitations, no recurrence of atrial fibrillation, no history of TIA or CVA. Note that the patient is not on any chronic anticoagulation. ENDOCRINE: There is no history of diabetes mellitus. There is a history of hypothyroidism, on replacement. No history of polydipsia, polyuria. No history of heat or cold intolerance. METABOLIC: The patient denies any history of hyperlipidemia. She has a history of obesity in the past which has been helped and she has lost weight after a gastric bypass surgery. RENAL: No history of chronic kidney disease. No history of hematuria, pyuria or dysuria. No history of gout. MUSCULOSKELETAL: Denies any history of arthritis or collagen-vascular disease. GASTROINTESTINAL: History of GERD. No history of fatty food intolerance. No history of GI bleed. No history of peptic ulcer disease. No altered bowel movements. No history of jaundice. No history of hepatitis or cirrhosis. CENTRAL NERVOUS SYSTEM: No history of TIA or CVA. No history of gait imbalance. No history of headaches, migraines or seizures. PSYCHIATRIC: History of depression, well controlled with medication. No history of anxiety. No history of suicidal ideation. No history of homicidal ideation. VASCULAR: No history of calf or buttocks claudication. No history of DVT. HEMATOLOGICAL: History of non-Hodgkin's lymphoma which the patient states is cured with treatment modalities and not very apparent from the patient's description. She has no bleeding diathesis and no history of clotting disorders. DISPOSITION: The patient is a FULL [employer]. Her daughter is the surrogate healthcare decision maker. MEDICATIONS: 1. Tylenol 650 mg p.o. q. 4 hours p.r.n. 2. Albuterol sulfate Ventolin 0.83/2.5 mg nebulizer treatment q. 4 hours p.r.n. 3. Aspirin 81 mg p.o. daily. 4. Buspar 15 mg p.o. q. 12 hours. 5. Coreg 3.125 mg p.o. q. 12 hours. 6. Digoxin. She received 0.25 mg IV x1. 7. Lovenox 40 mg subcutaneously daily. 8. Lexapro 20 mg p.o. daily. 9. Breo Ellipta 100/25 one puff inhalation daily. 10. Lasix 40 mg IV q. 12 hours. 11. Lansoprazole 30 mg p.o. q. 6:00 a.m. 12. Levothyroxine 0.112 mg p.o. q. 6:00 a.m. and 0.025 mg p.o. q. 6 a.m. 13. Magnesium oxide 400 mg p.o. q. 12 hours. 14. Singulair 10 mg p.o. at bedtime. 15. Multivitamin 1 tablet p.o. daily. 16. MiraLax 17 g p.o. daily p.r.n. PHYSICAL EXAMINATION: GENERAL: The patient is moderately obese but well groomed, at present in no acute distress. VITAL SIGNS: Her temperature is 97.3 degrees Fahrenheit. Pulse is 116 beats per minute, sinus tachycardia. Blood pressure 102/88. Respirations are 24 per minute. O2 sats went down to 87% and the patient was placed on BiPAP. Subsequently, O2 sats came up to 97%, respirations came down to 19 per minute. HEENT: Head is atraumatic, normocephalic. Eyes: Pupils are equal, round, regular, reactive to light and accommodation. Extraocular movements are normal. There is no conjunctival pallor. There is no scleral icterus. Ears: Tympanic membranes are intact. External auditory canals are clear. Nose: There is no deviated nasal septum. There is no inflammation of the nasal mucous membranes. Mouth: Mucous membranes of the mouth are moist. Tongue is moist. There are no ulcers. There is no bleeding from the gums. Throat: There is no redness of the oropharynx. There are no exudates. SKIN: There are no skin rashes. There is no petechia or ecchymosis. There are no skin lesions. NECK: Supple. There is no JVD. Carotids are equal. There is no bruit. There is no goiter. There is no lymphadenopathy. Trachea central. LUNGS: Show diminished air entry, prolonged expiration. There is scattered rhonchi and a few dry crackles bilaterally. At present, there are a few fine rales in the bases also. HEART: S1, S2 is heard. There is no S3 gallop. There is no S4 gallop. There is a systolic murmur in the left sternal border on the apex. There is no rub. ABDOMEN: Soft, mildly obese, nontender. There is no hepatosplenomegaly. Bowel sounds are well heard. There are no tender areas or masses. EXTREMITIES: Peripheral pulses are slightly diminished. There are no femoral bruits. Leg pulses are diminished. There is no pedal edema. There is no DVT or cellulitis. There is no calf tenderness. There is no cyanosis or clubbing. CENTRAL NERVOUS SYSTEM: The patient is conscious, awake, alert, oriented x3 with no focal deficits. PSYCHIATRIC: The patient's judgment and insight re intact. Her affect is normal. DIAGNOSTICS: The patient's EKG shows sinus rhythm, first degree AV block, and left bundle branch block pattern. The patient's chest x-ray done on the shows small bilateral pleural effusions with bibasilar airspace disease, atelectasis versus pneumonia. The patient's high resolution CT of the chest shows no high resolution test CT evidence of interstitial lung disease or amiodarone-related toxicity. Small bilateral pleural effusion with bibasilar airspace disease likely atelectasis post gastric bypass with distended fundal pouch and hiatal hernia. The patient's echocardiogram done on 09/13/2017 during the last admission shows left ventricular ejection fraction normal. There is moderate concentric left ventricular hypertrophy. Left ventricle is grossly normal in size. Doppler measurements suggest pseudonormalization of left ventricle associated grade 2/4 or mild to moderate diastolic dysfunction. No definite regional wall motion abnormalities seen. There is mild to moderate mitral regurgitation. There is no mitral valve stenosis and mild to moderate aortic stenosis but the peak gradient is 25 mmHg. Hence, it is probably mild aortic stenosis. There is a trace to mild amount of tricuspid regurgitation. Right ventricular systolic pressure is estimated to be at 39 mmHg with a RA mean of 10. There is minimal pericardial effusion. The patient's white count is 7000; hemoglobin is 13.8; hematocrit is 41.7; her platelet count is 138,000. Her eosinophils are normal at 1.2%. Her lymphocytes are 11.8. Her segmented neutrophils are 78.6. The patient's sodium is 141.9, potassium 3.6, chloride 102, CO2 is 30, the patient's BUN is 23, creatinine 0.86, GFR is greater than 60, her glucose is 86, her calcium is 8.6, phosphorus 3.5, magnesium 1.8. Her NT-proBNP came down from 7350 to 2130. Her albumin is 2.6. Her TSH is 1.38. Her ABGs on the showed pH of 7.46, pCO2 is normal at 37.4, pO2 is high at 102.9, this is on FiO2 of 3 L, the patient's O2 saturation is 98%. IMPRESSION: 1. Shortness of breath with chronic orthopnea, ? etiology, most likely secondary to COPD and probably a component of LV diastolic dysfunction, also compounded by the fact that the patient has restrictive lung disease findings on her PFT. 2. COPD, most likely acute exacerbation. Cannot exclude bibasilar pneumonia. 3. Left ventricular diastolic dysfunction, most likely adding to element of shortness of breath with congestive heart failure. 4. Possible amiodarone toxicity in spite of negative CT scan findings. We will stop the patient's amiodarone, especially with the patient's diffusion capacity being moderately decreased. 5. Restrictive lung disease, ? cause. 6. Paroxysmal atrial fibrillation, at present in sinus rhythm. 7. Hypertension. Blood pressure well controlled. 8. Hypothyroidism. Patient on replacement. 9. GERD. 10. Depression. 11. History of asthma/COPD. 12. Non-Hodgkin's lymphoma by history. RECOMMENDATIONS: Would stop the patient's Coreg and change it to Cardizem. Will make sure that patient has a stress test to make sure that the shortness of breath and dyspnea on exertion are not secondary to underlying coronary artery disease. The patient had resting images done today. We will get a Lexiscan Cardiolite stress test in the morning. Also, we will give the patient a small course of prednisone in tapering doses over a very short period. Also, would recommend decreasing the patient's IV Lasix. Note, the reason for stopping the Coreg is that the patient has COPD and a history of wheezing off and on and this Coreg might exacerbate that. The patient's LV ejection fraction is normal and hence, we can go with a calcium channel gillian. Note, medications have been reviewed and adjusted and discussed with the hospitalist. Discussed at length with the patient. Will try to get more records on the patient's non-Hodgkin's lymphoma. We will get a SED rate and CRP to see if we need to further work her up for presence of Hodgkin's disease or any other collagen vascular disease. Medical decision making is of high complexity. TIME SPENT: Fifty-five minutes spent on this patient with more than 50% of the time spent on direct patient care. Also reviewed the patient's old charts. We will follow with you. We will watch the patient closely for development or recurrence of atrial fibrillation. DICTATING PHYSICIAN: MARIZA NORTON M.D. [id number] PHY#: [id number] ID: [id number] JOB#: [id number] ACCT: [id number] cc:MARIZA NORTON M.D. > [facility]
[2017-10-01] MEDS: LANSOPRAZOLE 30 MG TAB.RAP.DR PO SCH (06:09)
[2017-10-01] MEDS: LEVOTHYROXINE SODIUM 0.112 MG TABLET PO SCH (06:09)
[2017-10-01] MEDS: LEVOTHYROXINE SODIUM 0.025 MG TABLET PO SCH (06:09)
[2017-10-01] MEDS: DILTIAZEM HCL 30 MG TABLET PO SCH ×3 (06:10→18:10)
[2017-10-01] MEDS ORDERED: MEDROL DOSEPAK (DAY 1 BRKFST) (EDIT AFTER 0800) PO SCH (08:00)
[2017-10-01] MEDS: MULTIVITAMIN TABLET PO SCH (08:44)
[2017-10-01] MEDS: MAGNESIUM OXIDE 400 MG TABLET PO SCH ×2 (08:45→21:18)
[2017-10-01] MEDS: ESCITALOPRAM OXALATE 10 MG TABLET PO SCH (08:45)
[2017-10-01] MEDS: BUSPIRONE HCL 10 MG TABLET PO SCH ×2 (08:45→21:18)
[2017-10-01] MEDS: ASPIRIN 81 MG TABLET, CHEWABLE PO SCH (08:45)
[2017-10-01] MEDS: ENOXAPARIN SODIUM INJ 40 MG/0.4 ML DISP.SYRIN SUBCUT SCH (08:49)
--- NOTE | 2017-10-01 09:14 | PULMONARY FUNCTION TEST ---
DATE OF SERVICE: 09/30/2017 THE VITAL CAPACITY IS SLIGHTLY DECREASED. THE EXPIRATORY FLOW RATES ARE MODERATELY DECREASED. THE FEV1/VC IS 82%, PREDICTED: 70% LUNG VOLUMES BY NITROGEN WASH OUT METHOD SHOW: TLC IS 45% OF PREDICTED FRC IS 33% OF PREDICTED RV IS 2% OF PREDICTED THE DLCO IS 11.0, 52% OF PREDICTED. THE RV/TLC RATIO IS 2% PREDICTED 41% AFTER BRONCHODILATOR, EXPIRATORY FLOW RATES SHOW NO SIGNIFICANT CHANGE. IMPRESSION: GOOD PATIENT EFFORT. SEVERE RESTRICTIVE DEFECT. LUNG VOLUMES ARE SEVERELY DECREASED. THE VALUE FOR RV IS INCORRECT. DIFFUSING CAPACITY IS MODERATELY DECREASED. NO PREVIOUS STUDIES ARE AVAILABLE FOR COMPARISON. CC: MARIZA NORTON MD > [facility]
--- NOTE | 2017-10-01 10:40 | PDOC PROGRESS REPORT ---
Subjective Progress Note for:: 10/01/17 Subjective:: Patient is feeling better today Dyspnea is somewhat improved A. fib is controlled ventricular rate Blood pressure is better at 120/70 improved since yesterday She has no chest pain no palpitations Reason For Visit: HEART FAILURE Physical Exam Vital Signs: Temp Pulse Resp BP Pulse Ox 97.7 F 70 17 125/60 100 10/01/17 07:51 10/01/17 07:51 10/01/17 07:51 10/01/17 07:51 10/01/17 07:51 Intake & Output 09/30/17 10/01/17 10/02/17 00:59 00:59 00:59 Intake Total 1763 981 207 Output Total 2750 780 Balance -987 201 207 Weight 88.4 kg 87.7 kg 88.1 kg She does not appear in any distress she is alert and awake Pupils are PERRLA extraocular motor intact Neck supple Heart irregular rate no murmur no gallop Lungs diminished breath sounds bilaterally Abdomen is soft nontender Extremities are intact no peripheral edema Neuro nonfocal Results Laboratory Results: 09/30/17 04:38 10/01/17 05:23 C-Reactive Protein 68.9 H 09/29/17 09/30/17 05:33 04:38 NT-Pro-B Natriuret Pep 7350 H 2130 H Impressions: Chest X-Ray 09/28/17 13:35 IMPRESSION: Small bilateral pleural effusions with bibasilar airspace disease atelectasis versus pneumonia Chest CT 09/30/17 00:00 IMPRESSION: No high-resolution chest CT evidence of interstitial lung disease or amiodarone related to pulmonary toxicity. Small bilateral pleural effusions with bibasilar airspace disease likely atelectasis Post gastric bypass with distended fundal pouch and hiatal hernia Assessment & Plan - Diagnosis (1) Chronic atrial fibrillation Is this a current diagnosis for this admission?: Yes Plan: Rate controlled Continue present meds (2) Acute on chronic diastolic heart failure Is this a current diagnosis for this admission?: Yes Plan: We have held diuretics as patient was hypotensive We will reevaluate meds in a.m. (3) Acute hypoxemic respiratory failure Is this a current diagnosis for this admission?: Yes (4) Hypertension Qualifiers: Hypertension type: unspecified Qualified Code(s): I10 - Essential (primary ) hypertension Is this a current diagnosis for this admission?: Yes (5) Obstructive sleep apnea Is this a current diagnosis for this admission?: Yes (6) History of lymphoma Is this a current diagnosis for this admission?: Yes Plan: Patient gives a history of Hodgkin's lymphoma treated with chemoradiation in 2007 Patient is now in remission Dr. Davis suggested that patient be followed by oncology We will discuss case with Dr. Shin (7) Amiodarone pulmonary toxicity Is this a current diagnosis for this admission?: Yes Plan: Restrictive disease and decrease diffusing capacity Amiodarone has been discontinued Medrol [place] as per Dr. Daniel - Time Time Spent with patient: Discharge patient over the weekend if she continues to improve patient will need oxygen 24 hours Time Spent with patient: 25-34 minutes
[2017-10-01] MEDS ORDERED: REGADENOSON INJ 0.4 MG/5 ML DISP.SYRIN IV ONE (11:54)
[2017-10-01] MEDS: MEDROL DOSEPAK (DAY 1 LUNCH & SUPPER) (EDIT AFTER 0800) PO SCH ×2 (14:28→18:00)
--- NOTE | 2017-10-01 15:15 | PDOC TRANSFER SUMMARY ---
General Admission Date/PCP: 09/28/17 16:39 Admission Date: 09/28/17 Transfer Date: 10/01/17 Accepting Facility: [facility] Resuscitation Status: Full Code - Transfer Diagnosis (1) Chronic atrial fibrillation Is this a current diagnosis for this admission?: Yes (2) Acute on chronic diastolic heart failure Is this a current diagnosis for this admission?: Yes (3) Acute hypoxemic respiratory failure Is this a current diagnosis for this admission?: Yes (4) Hypertension Is this a current diagnosis for this admission?: Yes (5) Obstructive sleep apnea Is this a current diagnosis for this admission?: Yes (6) History of lymphoma Is this a current diagnosis for this admission?: Yes (7) Amiodarone pulmonary toxicity Is this a current diagnosis for this admission?: Yes (8) Abnormal stress test Is this a current diagnosis for this admission?: Yes - Transfer Medications Home Medications: Albuterol Sulfate [Proair Respiclick] 2 puff IH Q2HP PRN 06/16/17 Amiodarone HCl [Cordarone 200 mg Tablet] 200 mg PO DAILY 06/16/17 Aspirin [Aspirin 81 mg Chewable Tablet] 81 mg PO DAILY 06/16/17 Buspirone HCl 15 mg PO BID 06/16/17 Carvedilol 6.25 mg PO Q12 06/16/17 Escitalopram Oxalate 20 mg PO DAILY 06/16/17 Fluticasone/Vilanterol [Breo Ellipta 100-25 Mcg INH] 1 puff IH DAILY 06/16/17 Furosemide 20 mg PO DAILY 06/16/17 Levothyroxine Sodium 137 mcg PO Q6AM 06/16/17 Magnesium Oxide [Magnesium] 400 mg PO BID 06/16/17 Montelukast Sodium 10 mg PO QHS 06/16/17 Multivit-Minerals/Folic Acid [Centrum Multigummies] 80 mcg PO DAILY 06/16/17 L.acidoph,Paracasei, B.lactis [Probiotic] 1 each PO DAILY 09/11/17 Ondansetron [Ondansetron Odt] 4 mg PO Q8H PRN 09/11/17 Pantoprazole Sodium [Protonix] 40 mg PO DAILY 09/11/17 Suvorexant [Belsomra] 5 mg PO DAILY 09/11/17 Acetaminophen [Tylenol 325 mg Tablet] 650 mg PO Q4HP PRN 09/28/17 Transfer Medications: Current Medications Acetaminophen (Tylenol 325 Mg Tablet) 650 mg PO Q4HP PRN PRN Reason: PAIN SCALE OF 1 Stop: 10/28/17 16:45 Last Admin: 09/29/17 11:22 Dose: 650 mg Albuterol (Ventolin 0.083% Neb 2.5 Mg/3 Ml Ampul) 2.5 mg NEB RTQ4HP PRN PRN Reason: SHORTNESS OF BREATH Stop: 10/28/17 16:44 Aspirin (Aspirin 81 Mg Chewable Tablet) 81 mg PO DAILY MAYDA Stop: 10/29/17 09:59 Last Admin: 10/01/17 08:45 Dose: 81 mg Buspirone HCl (Buspar 10 Mg Tablet) 15 mg PO Q12 MAYDA Stop: 10/28/17 21:59 Last Admin: 10/01/17 08:45 Dose: 15 mg Diltiazem HCl (Cardizem 30 Mg Tablet) 30 mg PO Q6 MAYDA Stop: 10/31/17 05:59 Last Admin: 10/01/17 14:27 Dose: 30 mg Enoxaparin Sodium (Lovenox Inj 40 Mg/0.4 Ml Disp.Syrin) 40 mg SUBCUT DAILY [facility] Stop: 10/29/17 09:59 Last Admin: 10/01/17 08:49 Dose: 40 mg Escitalopram Oxalate (Lexapro 10 Mg Tablet) 20 mg PO DAILY [facility] Stop: 10/29/17 09:59 Last Admin: 10/01/17 08:45 Dose: 20 mg Furosemide (Lasix Inj/Pf 40 Mg/4 Ml Sdv) 40 mg IV Q12 MAYDA Stop: 10/29/17 21:59 Last Admin: 09/30/17 10:59 Dose: Not Given Lansoprazole (Prevacid 30 Mg Odt Tablet) 30 mg PO Q6AM [facility] Stop: 10/29/17 05:59 Last Admin: 10/01/17 06:09 Dose: 30 mg Levothyroxine Sodium (Synthroid 0.112 Mg Tablet) 0.112 mg PO Q6AM [facility] Stop: 10/29/17 05:59 Last Admin: 10/01/17 06:09 Dose: 0.112 mg Levothyroxine Sodium (Synthroid 0.025 Mg Tablet) 0.025 mg PO Q6AM [facility] Stop: 10/29/17 05:59 Last Admin: 10/01/17 06:09 Dose: 0.025 mg Magnesium Oxide (Mag-Ox 400 Mg Tablet) 400 mg PO Q12 MAYDA Stop: 10/28/17 21:59 Last Admin: 10/01/17 08:45 Dose: 400 mg Methylprednisolone (Medrol Dosepack (4 Mg/Tab) 21 Tab/Dosepak) 1 tab PO 1300, 1800 MAYDA Stop: 10/01/17 18:01 Last Admin: 10/01/17 14:28 Dose: 1 tab Methylprednisolone (Medrol Dosepack (4 Mg/Tab) 21 Tab/Dosepak) 2 tab PO 2200 MAYDA Stop: 10/01/17 22:01 Methylprednisolone (Medrol Dosepack (4 Mg/Tab) 21 Tab/Dosepak) 1 tab PO 0800, 1300,1800 MAYDA Stop: 10/02/17 18:01 Methylprednisolone (Medrol Dosepack (4 Mg/Tab) 21 Tab/Dosepak) 2 tab PO 2200 MAYDA Stop: 10/02/17 22:01 Methylprednisolone (Medrol Dosepack (4 Mg/Tab) 21 Tab/Dosepak) 1 tab PO 0800, 1300,1800,2200 MAYDA Stop: 10/03/17 22:01 Methylprednisolone (Medrol Dosepack (4 Mg/Tab) 21 Tab/Dosepak) 1 tab PO 0800, 1300,1800 MAYDA Stop: 10/04/17 18:01 Methylprednisolone (Medrol Dosepack (4 Mg/Tab) 21 Tab/Dosepak) 1 tab PO 0800, 2200 MAYDA Stop: 10/05/17 22:01 Methylprednisolone (Medrol Dosepack (4 Mg/Tab) 21 Tab/Dosepak) 1 tab PO 0800 MAYDA Stop: 10/06/17 08:01 Montelukast Sodium (Singulair 10 Mg Tablet) 10 mg PO QHS MAYDA Stop: 10/28/17 21:59 Last Admin: 09/30/17 21:37 Dose: 10 mg Multivitamins (Tab-A-Ren (Multiple Vitamin) Tablet) 1 tab PO DAILY MAYDA Stop: 10/29/17 09:59 Last Admin: 10/01/17 08:44 Dose: 1 tab Patient Own Medication (Fluticasone/Vilanterol [Breo Ellipta 100-25 Mcg Inh]) 1 puff IH .DAILY MAYDA Stop: 10/29/17 09:59 Polyethylene Glycol (Miralax Powder 17 Gm/Packet) 17 gm PO DAILYP PRN PRN Reason: FOR CONSTIPATION Stop: 10/28/17 16:39 Sodium Chloride (Saline Flush 2.5 Ml Monoject Prefil Syrin) 2.5 ml IV Q8 MAYDA Stop: 10/28/17 21:59 Last Admin: 10/01/17 14:30 Dose: 2.5 ml - Allergies Allergies/Adverse Reactions: codeine [Codeine] Allergy (Verified 09/11/17 01:39) haloperidol [From Haldol] Allergy (Verified 09/29/17 04:08) Change in behavior haloperidol lactate [From Haldol] Allergy (Verified 09/29/17 04:09) Change in behavior Sulfa (Sulfonamide Antibiotics) Allergy (Verified 09/29/17 04:08) rash; itching Beta-Blockers (Beta-Adrenergic Bloc Adverse Reaction (Verified 09/29/17 04:08) Bradycardia zolpidem tartrate [From Ambien] Adverse Reaction (Verified 09/29/17 04:08) sleep walk - Diet/Activity Discharge Diet: Cardiac Hospital Course Hospital Course: 72-year-old female with known history of paroxysmal atrial fibrillation on Coreg , amiodarone and Eliquis, chronic diastolic CHF, chronic COPD was admitted with chief complaint of increasing shortness of breath on 09/29/2017 Upon initial evaluation patient was diagnosed with COPD evaluation acute on chronic diastolic CHF, She was treated with steroids nebs Lasix She remains somewhat hypoxemic cardiology consult and stress test was ordered 1- COPD PFT's performed showed restrictive disease and moderately decreased diffusing capacity amiodarone was discontinued and medrol dose pack initiated 2- Paroxysmal a fibrillation Patient remained in sinus rythm 3- acute on chronic diastolic CHF Patient was diuresed with Lasix and improved Stress test was ordered and was abnormal suggestive of ischemia patient to be transfered for cardiac catheterization Echo 09/13/2017 normal LVF moderate diastolic dysfunction EKG LBBB 1st degree AV block NSR Physical Exam Vital Signs: Temp Pulse Resp BP Pulse Ox 98.4 F 82 19 126/82 H 100 10/01/17 12:33 10/01/17 12:33 10/01/17 12:33 10/01/17 12:33 10/01/17 12:33 Intake & Output 09/30/17 10/01/17 10/02/17 00:59 00:59 00:59 Intake Total 1763 981 207 Output Total 2750 780 Balance -987 201 207 Weight 88.4 kg 87.7 kg 88.1 kg She does not appear in any distress she is alert and awake Pupils are PERRLA extraocular motor intact Neck supple Heart irregular rate no murmur no gallop Lungs diminished breath sounds bilaterally Abdomen is soft nontender Extremities are intact no peripheral edema Neuro nonfocal Results Laboratory Results: 09/30/17 04:38 10/01/17 05:23 C-Reactive Protein 68.9 H 09/29/17 09/30/17 05:33 04:38 NT-Pro-B Natriuret Pep 7350 H 2130 H Impressions: Chest X-Ray 09/28/17 13:35 IMPRESSION: Small bilateral pleural effusions with bibasilar airspace disease atelectasis versus pneumonia Chest CT 09/30/17 00:00 IMPRESSION: No high-resolution chest CT evidence of interstitial lung disease or amiodarone related to pulmonary toxicity. Small bilateral pleural effusions with bibasilar airspace disease likely atelectasis Post gastric bypass with distended fundal pouch and hiatal hernia Plan Discharge Plan: transfer to [facility] for cardiac catheterization Time Spent: Greater than 30 Minutes
--- NOTE | 2017-10-01 19:09 | DRAGON STRESS TEST REPORT ---
2 Day Intravenous Lexiscan Cardiolite stress test using single photon emmision computerized tomography. Date of Resting procedure: 09/30/2017. Date of Stress procedure: 10/01/2017. Ordering Provider: Dr. Jayden Rogel Indication: Shortness of breath/dyspnea on exertion, and paroxysmal atrial fibrillation.. Coronary risk factors: Age, hypertension, and family history of coronary artery disease. Resting EKG: Sinus Rhythm. Left bundle branch block pattern. PVC. Stress EKG: No changes of ischemia. The patient had no chest pain or discomfort and there were no arrhythmias seen. Reason for termination: Protocol. Conclusions: Inconclusive evidence of ischemia by EKG due to the patient's left bundle branch block pattern, and normal hemodynamic response to IV Lexiscan. Nuclear data: At rest on 09/30/2017 the patient was given 13.60 millicuries of technetium 99m sestamibi injected intravenously. As per protocol rest non gated SPECT images were obtained. Subsequently the patient was on 10/01/2017 given intravenous Lexiscan at a dose of 0.4 mg in 5 mL intravenously, followed by flush with normal saline. Subsequently the stress dose of 40.5 millicuries of technetium 99m sestamibi was injected intravenously. As per protocol stress gated images were obtained. Nuclear interpretation: Review of images showed that there is a moderate perfusion defect involving the inferior wall and the basal lateral wall in the stress images which normalizes in the resting images. These segments have normal motion contraction and thickening by gated study. The rest of the segments of the myocardium had normal perfusion at rest, and normal perfusion post stress with IV Lexiscan. All segments of the myocardium had normal thickening by gated study. The left ventricle seemed to be slightly dilated, and there was mild global hypokinesis. T. I D. ratio was normal at 0.97. Computer read rest, and stress left ventricular ejection fraction were 36 %, and 26 %, respectively. Conclusion: 1. There is scintigraphic evidence of Lexiscan induced moderate myocardial ischemia involving the inferior wall and the basal lateral wall.. 2. There is no scintigraphic evidence of myocardial infarction/scar. 3. There is evidence of cardiomyopathy with probably mildly reduced LV ejection fraction. Please correlate with echo for LV ejection fraction. Recommendations: 1. Would strongly recommend cardiac catheterization, and aggressive treatment of coronary artery disease. 2. Aggressive risk factor modification, and treating the underlying co- morbidities. Discussed with the hospitalist taking care of the patient, and the accepting modeling agency manager at [facility], [place], [place]. BRIANNA
[2017-10-01 20:12] VITALS: BP 110/65
[2017-10-01] MEDS: MONTELUKAST SODIUM 10 MG TABLET PO SCH (21:18)
--- NOTE | 2017-10-01 21:44 | PROGRESS NOTE E ---
Progress Note NAME: RADHA LAGUERRE : 1945 AGE: 72Y DATE: 10/01/2017 ROOM: 325 SUBJECTIVE: Note that the patient underwent stress portion of a Cardiolite stress test today , having had the rest portion yesterday. The patient denies any chest pain or discomfort. Her shortness of breath has improved but she still has some dyspnea on exertion on walking around in the room. There is no chest pain or discomfort. There is no recurrence of atrial fibrillation. The patient denies any palpitations. There is no leg edema. There is no PND, orthopnea. On further questioning the patient, she states that had Hodgkin's disease in 2007 and she had radiation treatment. She also at that time due to multiple intubations for surgeries (no history of respiratory failure requiring intubation) she developed hoarseness of the voice due to vocal cord paralysis. She denies any palpitations or syncope, near syncope. There are no TIA or CVA symptoms. The patient does not have any cough. There is orthopnea present but no PND. OBJECTIVE: GENERAL: On examination the patient is mildly obese, well-groomed in no acute distress. VITAL SIGNS: She is afebrile with a temperature of 98.4 degrees Fahrenheit, pulse is 82 beats per minute, blood pressure is 122/82, respirations are 19 per minute, O2 saturations are 100% on 2 liters nasal cannula. HEENT: Head is atraumatic, normocephalic. Eyes: Pupils are equal, round and regular, reactive to light and accommodation. Extraocular movements are normal. There is no conjunctival pallor. There is no scleral icterus. ENT is negative. NECK: Supple. There is no JVD. There is no lymphadenopathy. There is no goiter. Carotids are equal. There is no bruit. Trachea is central. LUNGS: Show diminished air entry, prolonged inspiration, a few scattered rhonchi and a few dry crackles bilaterally. No rales of CHF. HEART: S1, S2 is heard. There is no S3 gallop. There is no S4 gallop. There is a systolic murmur in the left sternal border and the apex. There is no rub. ABDOMEN: Soft, mildly obese, nontender. There is no hepatosplenomegaly. Bowel sounds are well heard. There are no tender areas or masses. EXTREMITIES: Femorals are slightly diminished. There are no femoral bruits. Leg pulses are diminished. There is no pedal edema. There is no cyanosis or clubbing. There is no DVT or cellulitis. There is no calf tenderness. CENTRAL NERVOUS SYSTEM: The patient is conscious, awake, alert and oriented x3 with no focal deficits. PSYCHIATRIC: The patient's judgment and insight are intact. Her affect is normal. DIAGNOSTICS: The patient's pulmonary function tests official report is that good patient effort, severe respiratory defect, lung volumes are severely decreased, the value for RV is incorrect, the residual volume is incorrect, diffusing capacity is moderately decreased, no previous study is available for comparison. The patient's Cardiolite stress test shows moderate reversible ischemia in the inferior wall and basal lateral wall. There is no scintigraphic evidence of myocardial infarction/scar. There is evidence of cardiomyopathy and probably a mildly reduced LV ejection fraction. Would strongly recommend cardiac catheterization and aggressive treatment of coronary artery disease. Would recommend correlate with echo for LV function. The patient's sed rate was 33. Her c-reactive protein done last night was 68.9 which is high. The patient's NT-proBNP has come down to 3130. IMPRESSION: 1. ABNORMAL STRESS TEST. Most likely has significant coronary artery disease. The patient recommended to have a cardiac catheterization. Dr. Saavedra, the attending physician, has discussed with [facility] cardiology, who has accepted the patient. I have also discussed with Dr. Umaña, about the patient's stress test findings and also the patient's clinical findings and including the high sed rate and the high CRP levels and that the patient has a prior history of non-Hodgkin's lymphoma and also discussed the PFT which showed severe restrictive lung disease and also moderate perfusion defect. Also I have told him that she has a history of paroxysmal atrial fibrillation and I had stopped the amiodarone in view of the patient's PFT findings and patient's shortness of breath, which made me suspicious for amiodarone lung toxicity, which has not been proved as yet. But in spite of that, in view of the moderately decreased diffusion capacity the patient's amiodarone should not be re-instituted. He agrees and also he will make sure that the patient has a pulmonary evaluation there after the coronary anatomy is known. 2. COPD. Most likely acute exacerbation, much improved. 3. LEFT VENTRICULAR DIASTOLIC DYSFUNCTION. The echo findings showed normal LV ejection fraction but the stress test findings, which may not be very reliable, suggest LV dysfunction. 4. POSSIBLE AMIODARONE TOXICITY. The patient's amiodarone has been discussed. 5. RESTRICTIVE LUNG DISEASE AND MODERATELY DECREASED DIFFUSION CAPACITY? CAUSE. 6. PAROXYSMAL ATRIAL FIBRILLATION, AT PRESENT IN SINUS RHYTHM. 7. HYPERTENSION. 8. HYPOTHYROIDISM. On replacement. 9. GERD. 10. DEPRESSION. 11. HISTORY OF ASTHMA/COPD. 12. NON-HODGKIN'S LYMPHOMA BY HISTORY. Note, I have discussed the stress findings with the patient and with the attending physician and also the accepting cut out stitcher in [facility]. The patient has had a cath in the past many years ago, which she says did not reveal any significant coronary artery disease. But, nevertheless, in view of the patient's abnormal stress test and the patient's shortness of breath on exertion a cardiac catheterization is indicated. This has been discussed with the patient. She is agreeable. She is aware of the benefits and risks of transfer including complications that could occur during transfer. TIME SPENT: Note, 40 minutes spent on this patient with more than 50% of the time spent on direct patient care. Her medications have been reviewed. Continue with the Lasix. Continue with thyroid replacement. Continue Medrol Dosepak. Continue the patient on diltiazem p.o. q.6 hours and increase as tolerated. Continue her antidepressant medication. Continue the aspirin. Note, the patient states that when she comes back from [facility], after cardiac catheterization, she is desirous of following up with me. My cell phone number has been given to the patient. Note, medical decision making is of high complexity since I have discussed the benefits, risks, and complications that can occur with cardiac catheterization and the procedure of cardiac catheterization will be further discussed at [facility]. I will sign off the case. DICTATING PHYSICIAN: MARIZA NORTON M.D. [id number] MIRELAY#: [id number] ID: [id number] JOB#: [id number] ACCT: [id number] cc: > [facility]
[2017-10-01] MEDS ORDERED: MEDROL DOSEPAK (DAY 1 BEDTIME DOSE) (EDIT AFTER 0800) PO SCH (22:00)
[2017-10-02] MEDS ORDERED: MEDROL DOSEPAK (DAY 2 BRKFST, LUNCH, SUPPER) PO SCH (08:00)
[2017-10-02] MEDS ORDERED: MEDROL DOSEPAK (DAY 2 HS) PO SCH (22:00)
[2017-10-03] MEDS ORDERED: MEDROL DOSEPAK (DAY 3) PO SCH (08:00)
[2017-10-04] MEDS ORDERED: MEDROL DOSEPAK (DAY 4) PO SCH (08:00)
[2017-10-05] MEDS ORDERED: MEDROL DOSEPAK (DAY 5) PO SCH (08:00)
[2017-10-06] MEDS ORDERED: MEDROL DOSEPAK (DAY 6) PO SCH (08:00)
== END 2017-10-01 21:40 | disposition short-term general hospital (02) | DRG 291 ==
LOC: ER 13:31 → EH 16:39 → 3W 19:27
PROVIDERS: ADMIT Internal Medicine; ATTEND Internal Medicine
PROC: 5A09457 Assistance with Respiratory Ventilation, 24-96 Consecutive Hours, Continuous Positive Airway Pressure (ICD-10-PCS; principal; 2017-09-28)
PROC: 3E0F73Z Introduction of Anti-inflammatory into Respiratory Tract, Via Natural or Artificial Opening (ICD-10-PCS; 2017-09-28)
DX: I11.0 Hypertensive heart disease with heart failure (principal); J96.01 Acute respiratory failure with hypoxia; I50.33 Acute on chronic diastolic (congestive) heart failure; J44.9 Chronic obstructive pulmonary disease, unspecified; I48.0 Paroxysmal atrial fibrillation; G47.33 Obstructive sleep apnea (adult) (pediatric); T46.2X1A Poisoning by other antidysrhythmic drugs, accidental (unintentional), initial encounter; R94.39 Abnormal result of other cardiovascular function study; I44.7 Left bundle-branch block, unspecified; I44.0 Atrioventricular block, first degree; K44.9 Diaphragmatic hernia without obstruction or gangrene; I25.10 Atherosclerotic heart disease of native coronary artery without angina pectoris; K21.9 Gastro-esophageal reflux disease without esophagitis; E66.9 Obesity, unspecified; Z68.35 Body mass index [BMI] 35.0-35.9, adult; F32.9 Major depressive disorder, single episode, unspecified; Z92.3 Personal history of irradiation; Z85.72 Personal history of non-Hodgkin lymphomas; Z79.899 Other long term (current) drug therapy; Z79.01 Long term (current) use of anticoagulants; Z79.82 Long term (current) use of aspirin; Z88.6 Allergy status to analgesic agent; Z88.2 Allergy status to sulfonamides; Z88.8 Allergy status to other drugs, medicaments and biological substances; Z98.84 Bariatric surgery status; Z90.49 Acquired absence of other specified parts of digestive tract; Z80.9 Family history of malignant neoplasm, unspecified; Z82.49 Family history of ischemic heart disease and other diseases of the circulatory system
CPT/HCPCS: 36415; 36600; 51702; 71045; 71250; 78452; 80053; 80069; 81001; 82550; 82553; 82803; 83690; 83735; 83880; 84443; 84484; 85025; 85652; 86140; 93005; 93010; 93017; 94060; 94660; 94727; 94729; 99285; A9500; J1160; J1650; J1940; J2785; J3490; J7050; J7509; Q9969

== ENCOUNTER 2018-05-15 19:04 | Inpatient (IN) | payer MEDICARE ==
[2018-05-15] MEDS ORDERED: NORMAL SALINE 500 ML IV ONE ×2 (19:26→20:28)
[2018-05-15] MEDS ORDERED: DILTIAZEM HCL/D5W 125 MG/125 ML RTUINJ IV PRN (19:26)
--- NOTE | 2018-05-15 19:35 | ER Document Report ---
ED General - General Chief Complaint: Arrhythmia Stated Complaint: WEAKNESS Time Seen by Provider: 05/15/18 19:16 Notes: Patient is a 73 year old female that comes to the Emergency Department for chief complaint of weakness, lightheadedness. She states she has been feeling worse for the past 4 days. EMS found her to have a heart rate in the 180s, atrial fibrillation with RVR, she was given initial 25 mg bolus of Cardizem, then an additional 10 mg bolus just prior to arrival. She denies shortness Patient reports intermittent shortness of breath but denies chest pain, headache, focal numbness/weakness, fever/chills, nausea/vomiting, abdominal pain. PMH includes CHF, afib (reportedly not on a blood thinner), COPD on 2L oxygen at home, hypothyroidism on synthroid. Her instructor physical education is Dr. Sorin davalos. TRAVEL OUTSIDE OF THE [place] IN LAST 30 DAYS: No - Related Data Allergies/Adverse Reactions: codeine [Codeine] Allergy (Verified 09/11/17 01:39) haloperidol [From Haldol] Allergy (Verified 09/29/17 04:08) Change in behavior haloperidol lactate [From Haldol] Allergy (Verified 09/29/17 04:09) Change in behavior Sulfa (Sulfonamide Antibiotics) Allergy (Verified 09/29/17 04:08) rash; itching Beta-Blockers (Beta-Adrenergic Bloc Adverse Reaction (Verified 09/29/17 04:08) Bradycardia zolpidem tartrate [From Ambien] Adverse Reaction (Verified 09/29/17 04:08) sleep walk Past Medical History - General Information source: Patient - Social History Smoking Status: Never Smoker Frequency of alcohol use: None Drug Abuse: None Lives with: Family Family History: COPD - Past Medical History Cardiac Medical History: Reports: Hx Atrial Fibrillation, Hx Congestive Heart Failure - Diastolic, Hx Hypertension, Hx Heart Murmur Pulmonary Medical History: Reports: Hx COPD Renal/ Medical History: Denies: Hx Peritoneal Dialysis GI Medical History: Reports: Hx Gastroesophageal Reflux Disease Psychiatric Medical History: Reports: Hx Depression Past Surgical History: Reports: Hx Abdominal Surgery - gastric bypass. tummy tuck, Hx Thyroid Surgery - Immunizations Hx Diphtheria, Pertussis, Tetanus Vaccination: Yes Hx Pneumococcal Vaccination: 06/03/13 Review of Systems - Review of Systems Constitutional: See HPI EENT: No symptoms reported Cardiovascular: See HPI Respiratory: No symptoms reported Gastrointestinal: No symptoms reported Genitourinary: No symptoms reported Female Genitourinary: No symptoms reported Musculoskeletal: No symptoms reported Skin: No symptoms reported Hematologic/Lymphatic: No symptoms reported Neurological/Psychological: No symptoms reported Physical Exam - Vital signs Vitals: Temp Resp 98.3 F 26 H 05/15/18 19:11 05/15/18 19:11 - Notes Notes: GENERAL: Alert, interacts well. No acute distress. HEAD: Normocephalic, atraumatic. EYES: Pupils equal, round, and reactive to light. Extraocular movements intact. ENT: Oral mucosa moist, tongue midline. Oropharynx unremarkable. Airway patent. Nares patent, no nasal septal hematoma, TM's intact. NECK: Full range of motion. Supple. Trachea midline. LUNGS: Clear to auscultation bilaterally, no wheezes, rales, or rhonchi. No respiratory distress. HEART: Tachycardic, irregularly irregular, no loud murmur. ABDOMEN: Soft, non-tender. Non-distended. Bowel sounds present in all 4 quadrants. GENITOURINARY: Deferred EXTREMITIES: Moves all 4 extremities spontaneously. 1+ pitting edema bilaterally. normal radial and dorsalis pedis pulses bilaterally. No cyanosis. BACK: no cervical, thoracic, lumbar midline tenderness. No saddle anesthesia, normal distal neurovascular exam. NEUROLOGICAL: Alert and oriented x3. Normal speech. [cranial nerves II through XII grossly intact]. PSYCH: Normal affect, normal mood. SKIN: Warm, dry, normal turgor. No rashes or lesions noted. Course - Re-evaluation Re-evalutation: On my initial evaluation patient has heart rate in the 140s to 150s, atrial fibrillation; blood pressure 98 systolic. She does not appear to be in distress. No rales on exam. Patient asking for water. Giving 500 cc bolus, starting on cardizem drip, just received a 10 mg bolus of cardizem at arrival per nurse report from EMS. Blood pressure cycled and is 106/74. Will closely monitor. Records show that on transfer to [facility] for Cardiac Catheterization patient was on Amiodarone 200 mg daily and carvedilol 6.25 mg twice a day. Patient is on neither of these medications. She does not have any antiarrhythmics in her medication bag that she is taking. She is not on any blood thinners. 05/15/18 20:30 Patient with no noted response to Cardizem drip after 40 minutes, patient still having heart rate consistently in the 150s, ranges from 130s-150s. Blood pressure became slightly soft but now is 109 systolic. I discussed with Dr. Starks. Patient will be taken off of the Cardizem drip, given amiodarone bolus and placed on amiodarone drip to attempt to lower her heart rate. 05/15/18 21:30 Patient has had improvement with amiodarone, heart rate averaging in the 120s now, occasionally going up to the 140s. Patient states she feels much improved from prior. Troponin is mildly elevated at 0.15, this is nonspecific given her heart rate persistently being elevated and her creatinine being elevated at 1.68. TSH is very low, T4 pending. 05/15/18 22:30 T4 elevated. I spoke with Daughter. She confirmed that patient was taken off of amiodarone and carvedilol, she was also supposed to get her thyroid functioning rechecked. Will discuss with hospitalist for admission. Discussed with Dr. Starks Discussed with Dr. Alex, hospitalist, patient accepted for admission, placing on IMCU. - Vital Signs Vital signs: Temp Pulse Resp BP Pulse Ox 99.0 F 16 97/81 L 96 05/16/18 02:00 05/16/18 01:53 05/16/18 00:20 05/16/18 01:53 - Laboratory Result Diagrams: 05/15/18 19:55 05/15/18 19:55 Laboratory results interpreted by me: 05/15/18 05/15/18 05/15/18 19:55 19:55 19:55 RDW 14.8 H Plt Count 119 L Seg Neuts % (Manual) 90 H Lymphocytes % (Manual) 4 L Abs Neuts (Manual) 9.3 H BUN 46 H Creatinine 1.68 H Est GFR ( Amer) 36 L Est GFR (Non-Af Amer) 30 L Glucose 180 H Calcium 8.2 L Total Bilirubin 2.2 H Direct Bilirubin 1.0 H AST 57 H ALT 65 H Total Protein 5.0 L Albumin 2.5 L TSH < 0.01 L Free T4 05/15/18 19:55 RDW Plt Count Seg Neuts % (Manual) Lymphocytes % (Manual) Abs Neuts (Manual) BUN Creatinine Est GFR ( Amer) Est GFR (Non-Af Amer) Glucose Calcium Total Bilirubin Direct Bilirubin AST ALT Total Protein Albumin TSH Free T4 3.75 H Critical Care Note - Critical Care Note Total time excluding time spent on procedures (mins): 40 - Atrial fibrillation with rapid ventricular response, hypotension, hyperthyroid Comments: Please allow 40 minutes of critical care time for evaluation and management of patient with persistent atrial fibrillation with rapid ventricular response, intermittent hypotension, elevated thyroid functioning tests. Interventions including diltiazem drip, changing to amiodarone bolus and drip, IV fluids, multiple re-evaluations, time spent discussion with family members, review of previous records, consultation and admission to the hospital. Discharge - Discharge Clinical Impression: Atrial fibrillation with RVR, Low TSH level, Lightheadedness Condition: Fair Disposition: ADMITTED INPATIENT Admitting Provider: Hospitalist Unit Admitted: [facility]
[2018-05-15 20:06] LABS: HEMATOCRIT 41.8 % (36.0-47.0); HEMOGLOBIN 13.7 g/dL (12.0-15.5); MEAN CORPUSCULAR HGB CONC 32.7 g/dL (32.0-36.0); MEAN CORPUSCULAR VOLUME 95 fl (80-97); PLATELET COUNT 119 10^3/uL (150-450); RED BLOOD COUNT 4.42 10^6/uL (3.72-5.28); RED CELL DISTRIBUTION WIDTH 14.8 % (11.5-14.0); WHITE BLOOD COUNT 10.3 10^3/uL (4.0-10.5)
[2018-05-15 20:20] LABS: ALANINE AMINOTRANSFERASE 65 U/L (9-52); ALBUMIN 2.5 g/dL (3.5-5.0); ALKALINE PHOSPHATASE 116 U/L (38-126); ANION GAP 10 (5-19); ASPARTATE AMINO TRANSFERASE 57 U/L (14-36); BILIRUBIN,TOTAL 2.2 mg/dL (0.2-1.3); BLOOD UREA NITROGEN 46 mg/dL (7-20); CALCIUM 8.2 mg/dL (8.4-10.2); CARBON DIOXIDE 26 mmol/L (22-30); CHLORIDE 103 mmol/L (98-107); GLUCOSE 180 mg/dL (75-110); POTASSIUM 3.7 mmol/L (3.6-5.0); SODIUM 138.5 mmol/L (137-145)
[2018-05-15 20:26] LABS: ABSOLUTE LYMPHOCYTES# (MANUAL) 0.5 10^3/uL (0.5-4.7); ABSOLUTE MONOCYTES # (MANUAL) 0.5 10^3/uL (0.1-1.4); ABSOLUTE NEUTROPHILS# (MANUAL) 9.3 10^3/uL (1.7-8.2); BASOPHILS % (MANUAL) 0 % (0-2); EOSINOPHILS % (MANUAL) 0 % (0-6); LYMPHOCYTES % (MANUAL) 4 % (13-45); MONOCYTES % (MANUAL) 5 % (3-13); NUCLEATED RED BLOOD CELLS 1 /100 WBC (0); SEGMENTED NEUTROPHILS % (MAN) 90 % (42-78); TOTAL CELLS COUNTED 100
[2018-05-15] MEDS ORDERED: AMIODARONE HCL 150 MG in DEXTROSE 5%-WATER 100 ML IV ONE (20:26)
[2018-05-15] MEDS ORDERED: DEXTROSE 5%-WATER 500 ML with AMIODARONE HCL 900 MG IV PRN ×2 (20:27)
[2018-05-15 20:29] LABS: ACANTHOCYTES 1+; OVALOCYTES 1+; PLATELET COMMENT ADEQUATE; POIKILOCYTOSIS 1+; SCHISTOCYTES SLIGHT; TOXIC GRANULATION SLIGHT; TOXIC VACUOLATION PRESENT
--- NOTE | 2018-05-15 20:29 | RADIOLOGY REPORT (SQ) ---
EXAM DESCRIPTION: CHEST SINGLE VIEW COMPLETED DATE/TIME: 05/15/2018 8:20 pm REASON FOR STUDY: weakness, tachycardia COMPARISON: 12/03/2017 and earlier EXAM PARAMETERS: NUMBER OF VIEWS: One view. TECHNIQUE: Single frontal radiographic view of the chest acquired. RADIATION DOSE: NA LIMITATIONS: None. FINDINGS: LUNGS AND PLEURA: Right basilar and left peripheral lung opacity probable trace bilateral pleural effusions. No pneumothorax. MEDIASTINUM AND HILAR STRUCTURES: No masses. Contour normal. HEART AND VASCULAR STRUCTURES: Cardiomegaly. Central pulmonary vasculature is indistinct. BONES: No acute findings. HARDWARE: None in the chest. OTHER: No other significant finding. IMPRESSION: 1. Cardiomegaly with pulmonary vascular congestion. 2. Bilateral airspace opacities which may represent a component of pulmonary edema versus superimpose d pneumonia. 3. Probable trace bilateral pleural effusions. TECHNICAL DOCUMENTATION: JOB ID: [id number] [employer]- All Rights Reserved Reading location - IP/workstation name: [email or web address]
[2018-05-15] MEDS ORDERED: AMIODARONE HCL INJ 150 MG/3 ML VIAL IV ONE (20:34)
--- NOTE | 2018-05-15 20:35 | EKG REPORT ---
SEVERITY:- ABNORMAL ECG - ATRIAL FIBRILLATION LEFT BUNDLE BRANCH BLOCK : Confirmed by: Jonny Hernandez MD 15-May-2018 20:34:56
[2018-05-15] MEDS ORDERED: ONDANSETRON 4 MG TAB.RAPDIS PO PRN (23:06)
[2018-05-15] MEDS ORDERED: MAG HYDROX/AL HYDROX/SIMETH SUSP 30 ML UDCUP PO PRN (23:06)
[2018-05-15] MEDS ORDERED: MAGNESIUM HYDROXIDE SUSP 30 ML UDCUP PO PRN (23:06)
[2018-05-15] MEDS ORDERED: (PENDING PHARMACY ID) (Albuterol Sulfate [Proair Respiclick] 2 PUFF) IH PRN (23:15)
[2018-05-15] MEDS ORDERED: ALBUTEROL SULFATE 0.083% NEB 2.5 MG/3 ML AMPUL NEB PRN (23:45)
[2018-05-16] MEDS ORDERED: LEVALBUTEROL HCL NEB 1.25 MG/3 ML AMPUL NEB PRN (00:10)
[2018-05-16] MEDS ORDERED: APIXABAN 5 MG TABLET PO ONE (00:20)
[2018-05-16 00:43] LABS: CREATINE KINASE MB 4.43 ng/mL (<4.55)
[2018-05-16 00:48] LABS: TROPONIN I 0.171 ng/mL
[2018-05-16 01:42] LABS: APPEARANCE,URINE SLIGHTLY-CLOUDY; BILIRUBIN,URINE NEGATIVE (NEGATIVE); GLUCOSE, URINE NEGATIVE (NEGATIVE); KETONES,URINE NEGATIVE (NEGATIVE); LEUKOCYTE ESTERASE,URINE NEGATIVE (NEGATIVE); NITRITE,URINE NEGATIVE (NEGATIVE); PROTEIN,URINE 30 mg/dL (NEGATIVE); URINE SPECIFIC GRAVITY 1.017
[2018-05-16 01:43] LABS: COLOR,URINE DARK YELLOW
--- NOTE | 2018-05-16 02:24 | PDOC H&P ---
History of Present Illness Admission Date/PCP: 05/15/18 22:49 Patient complains of: Lightheadedness History of Present Illness: RADAH LAGUERRE is a 73 year old female who presented to the emergency room with a four-day history of gradually worsening lightheadedness with associated weakness and mildly increased dyspnea. Her lightheadedness had become severe by the late evening of the day of admission. She admits that she has had prior similar episodes when her atrial fibrillation was uncontrolled. She recently was taken off of amiodarone because it was causing problems for her lungs but she can think of no other aggravating or ameliorating factors for her current problems. She summoned EMS to her residence and was found to have a heart rate in the 180s (atrial fibrillation). She was given a bolus dose of Cardizem 25 mg followed by an additional 10 mg bolus without effect on her heart rate. In the emergency room she was treated with an amiodarone bolus and infusion with moderate success in controlling her heart rate. She was subsequently admitted to the ICU for further evaluation and treatment Dr. Davis has been consulted and plans for an esmolol bolus and infusion have been made. Past Medical History Cardiac Medical History: Reports: Atrial Fibrillation, Congestive Heart Failure - Diastolic, Hypertension, Heart Murmur Pulmonary Medical History: Reports: Chronic Obstructive Pulmonary Disease (COPD) Endocrine Medical History: Reports: Hypothyroidism Denies: Diabetes Mellitus Type 1, Diabetes Mellitus Type 2 Renal/ Medical History: Denies: Chronic Kidney Disease, Nephrolithiasis Malignancy Medical History: Reports: None GI Medical History: Reports: Gastroesophageal Reflux Disease Denies: Cirrhosis, Hepatitis Musculoskeltal Medical History: Denies: Fibromyalgia, Gout Skin Medical History: Denies: Eczema, Psoriasis Psychiatric Medical History: Reports: Depression Denies: Alcohol Dependency, Substance Abuse, Tobacco Dependency Traumatic Medical History: Reports: None Hematology: Denies: Anemia, Bleeding Tendencies Infectious Medical History: Reports: None Social History Information Source: Patient Lives with: Family Smoking Status: Never Smoker Frequency of Alcohol Use: Occasional Hx Recreational Drug Use: Yes Drugs: Marijuana Hx Prescription Drug Abuse: No - Advance Directive Resuscitation Status: Full Code Surrogate healthcare decision maker:: Her daughter Ranjana Family History Family History: COPD Parental Family History Reviewed: Yes Children Family History Reviewed: No Sibling(s) Family History Reviewed.: Yes Medication/Allergy Home Medications: Albuterol Sulfate [Proair Respiclick] 2 puff IH Q2HP PRN 06/16/17 Amiodarone HCl [Cordarone 200 mg Tablet] 200 mg PO DAILY 06/16/17 Aspirin [Aspirin 81 mg Chewable Tablet] 81 mg PO DAILY 06/16/17 Buspirone HCl 15 mg PO BID 06/16/17 Carvedilol 6.25 mg PO Q12 06/16/17 Escitalopram Oxalate 20 mg PO DAILY 06/16/17 Fluticasone/Vilanterol [Breo Ellipta 100-25 Mcg INH] 1 puff IH DAILY 06/16/17 Furosemide 20 mg PO DAILY 06/16/17 Levothyroxine Sodium 137 mcg PO Q6AM 06/16/17 Magnesium Oxide [Magnesium] 400 mg PO BID 06/16/17 Montelukast Sodium 10 mg PO QHS 06/16/17 Multivit-Minerals/Folic Acid [Centrum Multigummies] 80 mcg PO DAILY 06/16/17 L.acidoph,Paracasei, B.lactis [Probiotic] 1 each PO DAILY 09/11/17 Ondansetron [Ondansetron Odt] 4 mg PO Q8H PRN 09/11/17 Pantoprazole Sodium [Protonix] 40 mg PO DAILY 09/11/17 Suvorexant [Belsomra] 5 mg PO DAILY 09/11/17 Acetaminophen [Tylenol 325 mg Tablet] 650 mg PO Q4HP PRN 09/28/17 Allergies/Adverse Reactions: codeine [Codeine] Allergy (Verified 09/11/17 01:39) haloperidol [From Haldol] Allergy (Verified 09/29/17 04:08) Change in behavior haloperidol lactate [From Haldol] Allergy (Verified 09/29/17 04:09) Change in behavior Sulfa (Sulfonamide Antibiotics) Allergy (Verified 09/29/17 04:08) rash; itching Beta-Blockers (Beta-Adrenergic Bloc Adverse Reaction (Verified 09/29/17 04:08) Bradycardia zolpidem tartrate [From Ambien] Adverse Reaction (Verified 09/29/17 04:08) sleep walk Review of Systems Constitutional: PRESENT: as per HPI, weakness, other - Lightheadedness. ABSENT: chills, fever(s) Eyes: ABSENT: visual disturbances, other - Ocular pain Ears: ABSENT: hearing changes, other - Ear pain Nose, Mouth, and Throat: ABSENT: mouth pain, sore throat Cardiovascular: PRESENT: as per HPI, dyspnea on exertion. ABSENT: chest pain, edema, orthropnea, palpitations Respiratory: PRESENT: as per HPI, dyspnea. ABSENT: cough Gastrointestinal: ABSENT: abdominal pain, constipation, diarrhea, nausea, vomiting Genitourinary: ABSENT: dysuria, hematuria Musculoskeletal: ABSENT: deformity, joint swelling Integumentary: ABSENT: pruritus, rash Neurological: ABSENT: confusion, convulsions, memory loss Psychiatric: ABSENT: anxiety, depression Endocrine: ABSENT: cold intolerance, heat intolerance Hematologic/Lymphatic: ABSENT: easy bleeding, easy bruising Physical Exam Vital Signs: Temp Pulse Resp BP Pulse Ox 98.3 F 25 H 97/63 L 94 05/15/18 19:11 05/15/18 23:05 05/15/18 23:05 05/15/18 23:05 Intake & Output 05/13/18 05/14/18 05/15/18 23:59 23:59 23:59 Intake Total 1112 Balance 1112 Weight 83.3 kg General appearance: PRESENT: no acute distress, cooperative Head exam: PRESENT: atraumatic, normocephalic Eye exam: PRESENT: conjunctiva pink, EOMI. ABSENT: scleral icterus Ear exam: PRESENT: normal external ear exam. ABSENT: bleeding, drainage Mouth exam: PRESENT: dry mucosa, neck supple Neck exam: ABSENT: JVD, thyromegaly, tracheal deviation Respiratory exam: PRESENT: decreased breath sounds - Mildly decreased breath sounds in all reilly, prolonged expiratory phas - Mildly prolonged expiratory phase, rales - Mild bibasilar rales more prominent on the right than the left, symmetrical, other - Patient is noted to be taking shallow breaths Cardiovascular exam: PRESENT: irregular rhythm - Irregularly irregular rate and rhythm, tachycardia - 140s, other - Shortly after as well was administered patient's heart rate and rhythm changed to normal sinus rhythm with frequent PVCs at 72.. ABSENT: clicks, gallop, rubs Pulses: PRESENT: normal radial pulses, normal dorsalis pedis pul Vascular exam: PRESENT: pallor - Sluggish capillary refill of 3-4 seconds. ABSENT: normal capillary refill GI/Abdominal exam: PRESENT: normal bowel sounds, soft Rectal exam: PRESENT: deferred Extremities exam: ABSENT: joint swelling, pedal edema Musculoskeletal exam: ABSENT: deformity, dislocation Neurological exam: PRESENT: alert, oriented to person, oriented to place, oriented to time, oriented to situation, CN II-XII grossly intact. ABSENT: motor sensory deficit Psychiatric exam: PRESENT: appropriate affect, normal mood Skin exam: PRESENT: dry, intact, pallor. ABSENT: jaundice, rash, urticaria Results Laboratory Results: 05/15/18 19:55 05/15/18 19:55 05/15/18 05/15/18 05/15/18 19:55 19:55 19:55 WBC 10.3 RBC 4.42 Hgb 13.7 Hct 41.8 MCV 95 MCH 31.0 MCHC 32.7 RDW 14.8 H Plt Count 119 L Seg Neutrophils % Not Reportable Lymphocytes % Not Reportable Monocytes % Not Reportable Eosinophils % Not Reportable Basophils % Not Reportable Absolute Neutrophils Not Reportable Absolute Lymphocytes Not Reportable Absolute Monocytes Not Reportable Absolute Eosinophils Not Reportable Absolute Basophils Not Reportable Sodium 138.5 Potassium 3.7 Chloride 103 Carbon Dioxide 26 Anion Gap 10 BUN 46 H Creatinine 1.68 H Est GFR ( Amer) 36 L Est GFR (Non-Af Amer) 30 L Glucose 180 H Calcium 8.2 L Magnesium 2.0 Total Bilirubin 2.2 H AST 57 H ALT 65 H Alkaline Phosphatase 116 Total Protein 5.0 L Albumin 2.5 L TSH < 0.01 L Free T4 05/15/18 19:55 WBC RBC Hgb Hct MCV MCH MCHC RDW Plt Count Seg Neutrophils % Lymphocytes % Monocytes % Eosinophils % Basophils % Absolute Neutrophils Absolute Lymphocytes Absolute Monocytes Absolute Eosinophils Absolute Basophils Sodium Potassium Chloride Carbon Dioxide Anion Gap BUN Creatinine Est GFR ( Amer) Est GFR (Non-Af Amer) Glucose Calcium Magnesium Total Bilirubin AST ALT Alkaline Phosphatase Total Protein Albumin TSH Free T4 3.75 H 05/15/18 19:55 Troponin I 0.150 Impressions: Chest X-Ray 05/15/18 19:25 IMPRESSION: 1. Cardiomegaly with pulmonary vascular congestion. 2. Bilateral airspace opacities which may represent a component of pulmonary edema versus superimposed pneumonia. 3. Probable trace bilateral pleural effusions. Assessment & Plan - Diagnosis (1) Atrial fibrillation with RVR Is this a current diagnosis for this admission?: Yes Plan: Patient will be admitted to the ICU. Stat consult with Dr. Davis is obtained and patient is started on an esmolol bolus and infusion. She will be closely monitored in the ICU. (2) Iatrogenic hyperthyroidism Is this a current diagnosis for this admission?: Yes Plan: Patient's thyroid replacement hormone will be held and a free T3 will be obtained in the morning. Adjustments to the patient's thyroid replacement will be made as this may well be contributing to her atrial fibrillation with rapid ventricular response. (3) Acute kidney injury Is this a current diagnosis for this admission?: Yes Plan: Patient will be monitored closely for renal functions with daily metabolic profiles. Gentle rehydration may be appropriate once her immediate problem of A. fib with RVR has been resolved as attempts at introducing higher volume fluid loads may well result in acute pulmonary edema or other complication with her current status. (4) COPD (chronic obstructive pulmonary disease) Qualifiers: COPD type: unspecified COPD Qualified Code(s): J44.9 - Chronic obstructive pulmonary disease, unspecified Is this a current diagnosis for this admission?: Yes Plan: Patient will be placed on a ulnar toilet utilizing Xopenex and Atrovent every 8 hours via nebulizer as well as Pulmicort every 12 hours via nebulizer. As needed Xopenex nebulizer therapy will be available every 4 hours. Patient will be on continuous O2 protocol to maintain an O2 sat between 90 and 94%. (5) Chronic respiratory failure with hypoxia, on home O2 therapy Is this a current diagnosis for this admission?: Yes Plan: Patient will be continued on O2 protocol to maintain an oxygen saturation between 90 and 94%. (6) Chronic atrial fibrillation Is this a current diagnosis for this admission?: Yes Plan: Patient will be treated for atrial fibrillation acutely for the rapid ventricular response and chronic therapy to be determined. Additionally since she is not on an anticoagulant other than aspirin I will add apixaban 5 mg p.o. twice daily. - Time Time Spent: 50 to 70 Minutes Critical Time spent with patient: Less than 15 minutes Medications reviewed and adjusted accordingly: Yes Anticipated discharge: Home - Inpatient Certification Based on my medical assessment, after consideration of the patient's comorbidities, presenting symptoms, or acuity I expect that the services needed warrant INPATIENT care.: Yes I certify that my determination is in accordance with my understanding of Medicare's requirements for reasonable and necessary INPATIENT services [42 CFR 412.3e].: Yes Medical Necessity: Significant Comorbidiites Make Outpatient Treatment Too Risky, Need Close Monitoring Due to Risk of Patient Decompensation, Need For Continuous Telemetry Monitoring, Risk of Complication if Not Cared For in Hospital
[2018-05-16] MEDS ORDERED: NORMAL SALINE 1000 ML 500 ML IV ONE (04:15)
[2018-05-16] MEDS ORDERED: NORMAL SALINE 500 ML IV ONE (05:00)
[2018-05-16 06:09] LABS: ABSOLUTE LYMPHOCYTES (AUTO) 0.9 10^3/uL (0.5-4.7); ABSOLUTE MONOCYTES (AUTO) 0.7 10^3/uL (0.1-1.4); ABSOLUTE NEUT (AUTO) 8.1 10^3/uL (1.7-8.2); BASOPHILS % (AUTO) 0.1 % (0-2); EOSINOPHILS % (AUTO) 0.1 % (0-6); HEMATOCRIT 38.7 % (36.0-47.0); HEMOGLOBIN 12.9 g/dL (12.0-15.5); LYMPHOCYTES % (AUTO) 9.3 % (13-45); MEAN CORPUSCULAR HEMOGLOBIN 31.4 pg (27.0-33.4); MEAN CORPUSCULAR HGB CONC 33.2 g/dL (32.0-36.0); MEAN CORPUSCULAR VOLUME 95 fl (80-97); MONOCYTES % (AUTO) 7.2 % (3-13); PLATELET COUNT 101 10^3/uL (150-450); RED BLOOD COUNT 4.09 10^6/uL (3.72-5.28); RED CELL DISTRIBUTION WIDTH 14.9 % (11.5-14.0); SEGMENTED NEUTROPHILS % (AUTO) 83.3 % (42-78); TOTAL CELLS COUNTED % (AUTO) 100 %; WHITE BLOOD COUNT 9.7 10^3/uL (4.0-10.5)
[2018-05-16] MEDS: NORMAL SALINE 1000 ML 1,000 ML IV PRN (06:12)
[2018-05-16 06:26] LABS: ANION GAP 7 (5-19); BLOOD UREA NITROGEN 49 mg/dL (7-20); CALCIUM 8.3 mg/dL (8.4-10.2); CARBON DIOXIDE 21 mmol/L (22-30); CHLORIDE 112 mmol/L (98-107); CHOLESTEROL 95.68 mg/dL (0-200); CREATINE KINASE 208 U/L (30-135); GLUCOSE 95 mg/dL (75-110); SODIUM 140.3 mmol/L (137-145); TRIGLYCERIDES 93 mg/dL (<150)
[2018-05-16 06:36] LABS: DIRECT LDL 60 mg/dL (<100)
[2018-05-16 06:37] LABS: CREATINE KINASE MB 3.87 ng/mL (<4.55); TROPONIN I 0.163 ng/mL
[2018-05-16] MEDS: IPRATROPIUM BROMIDE 0.02% NEB 0.5 MG/2.5 ML AMPUL NEB SCH ×2 (08:02→15:38)
[2018-05-16] MEDS: BUDESONIDE NEB 0.5 MG/2 ML AMPUL NEB SCH ×2 (08:03→20:16)
[2018-05-16] MEDS: LEVALBUTEROL HCL NEB 1.25 MG/3 ML AMPUL NEB SCH ×2 (08:03→15:38)
[2018-05-16] MEDS: ESMOLOL HCL/SOD CL 2,500 MG/250 ML RTUINJ IV PRN ×3 (08:17→19:00)
[2018-05-16] MEDS ORDERED: (PENDING PHARMACY ID) (Fluticasone/Vilanterol [Breo Ellipta 100-25 Mcg Inh] 1 PUFF) IH SCH (10:00)
[2018-05-16] MEDS ORDERED: APIXABAN 5 MG TABLET PO SCH (10:00)
[2018-05-16] MEDS ORDERED: FUROSEMIDE 20 MG TABLET PO SCH (10:00)
[2018-05-16] MEDS ORDERED: DIGOXIN INJ 0.5 MG/2 ML AMPULE IV ONE (10:00)
--- NOTE | 2018-05-16 11:19 | PDOC PROGRESS REPORT ---
Subjective Progress Note for:: 05/16/18 Subjective:: The patient is sitting up in bed with her breakfast tray. Appetite is moderate. She still feels poorly. Her voice is hoarse but this is a chronic condition. She remains in atrial fibrillation with rapid ventricular response. Reason For Visit: ATRIAL FIBRILLATION WITH RAPID VENTRICULAR Physical Exam Vital Signs: Temp Pulse Resp BP Pulse Ox 99.3 F 108 H 16 104/69 96 05/16/18 08:00 05/16/18 08:05 05/16/18 08:05 05/16/18 06:17 05/16/18 08:05 Intake & Output 05/15/18 05/16/18 05/17/18 06:59 06:59 06:59 Intake Total 2314 149 Output Total 35 20 Balance 2279 129 Weight 80.1 kg General appearance: PRESENT: cooperative, mild distress, well-developed Head exam: PRESENT: normocephalic Eye exam: PRESENT: conjunctiva pink Ear exam: PRESENT: normal external ear exam Mouth exam: PRESENT: dry mucosa, tongue midline Neck exam: ABSENT: carotid bruit Respiratory exam: PRESENT: rales - Bilaterally. ABSENT: accessory muscle use, chest wall tenderness, rhonchi, stridor, wheezes Cardiovascular exam: PRESENT: irregular rhythm, systolic murmur - Dickey intermittently, tachycardia GI/Abdominal exam: PRESENT: hypoactive bowel sounds, soft. ABSENT: firm, guarding, tenderness Rectal exam: PRESENT: deferred Gentrourinary exam: PRESENT: indwelling catheter Extremities exam: PRESENT: pedal edema, other - Upper extremity edema Neurological exam: PRESENT: alert, awake, oriented to person, oriented to place, oriented to time, oriented to situation Psychiatric exam: PRESENT: flat affect. ABSENT: agitated, anxious Focused psych exam: ABSENT: restlessness Skin exam: PRESENT: mottled - Bilateral toes. Patient reports that this is c hronic. Results Laboratory Results: 05/16/18 05:59 05/16/18 05:59 05/15/18 05/15/18 05/15/18 19:55 19:55 19:55 WBC 10.3 RBC 4.42 Hgb 13.7 Hct 41.8 MCV 95 MCH 31.0 MCHC 32.7 RDW 14.8 H Plt Count 119 L Seg Neutrophils % Not Reportable Lymphocytes % Not Reportable Monocytes % Not Reportable Eosinophils % Not Reportable Basophils % Not Reportable Absolute Neutrophils Not Reportable Absolute Lymphocytes Not Reportable Absolute Monocytes Not Reportable Absolute Eosinophils Not Reportable Absolute Basophils Not Reportable Sodium 138.5 Potassium 3.7 Chloride 103 Carbon Dioxide 26 Anion Gap 10 BUN 46 H Creatinine 1.68 H Est GFR ( Amer) 36 L Est GFR (Non-Af Amer) 30 L Glucose 180 H Calcium 8.2 L Magnesium 2.0 Total Bilirubin 2.2 H AST 57 H ALT 65 H Alkaline Phosphatase 116 Total Protein 5.0 L Albumin 2.5 L Triglycerides Cholesterol LDL Cholesterol Direct VLDL Cholesterol HDL Cholesterol TSH < 0.01 L Free T4 Free T3 pg/mL Urine Color Urine Appearance Urine pH Ur Specific [place] Urine Protein Urine Glucose (UA) Urine Ketones Urine Blood Urine Nitrite Ur Leukocyte Esterase Urine WBC (Auto) Urine RBC (Auto) 05/15/18 05/16/18 05/16/18 19:55 01:15 05:59 WBC RBC Hgb Hct MCV MCH MCHC RDW Plt Count Seg Neutrophils % Lymphocytes % Monocytes % Eosinophils % Basophils % Absolute Neutrophils Absolute Lymphocytes Absolute Monocytes Absolute Eosinophils Absolute Basophils Sodium 140.3 Potassium 4.0 Chloride 112 H Carbon Dioxide 21 L Anion Gap 7 BUN 49 H Creatinine 1.76 H Est GFR ( Amer) 34 L Est GFR (Non-Af Amer) 28 L Glucose 95 Calcium 8.3 L Magnesium 2.2 Total Bilirubin AST ALT Alkaline Phosphatase Total Protein Albumin Triglycerides 93 Cholesterol 95.68 LDL Cholesterol Direct 60 VLDL Cholesterol 19.0 HDL Cholesterol 35 L TSH Free T4 3.75 H Free T3 pg/mL Urine Color DARK YELLOW Urine Appearance SLIGHTLY-CLOUDY Urine pH 5.0 Ur Specific [place] 1.017 Urine Protein 30 H Urine Glucose (UA) NEGATIVE Urine Ketones NEGATIVE Urine Blood NEGATIVE Urine Nitrite NEGATIVE Ur Leukocyte Esterase NEGATIVE Urine WBC (Auto) 4 Urine RBC (Auto) 0 05/16/18 05/16/18 05:59 05:59 WBC 9.7 RBC 4.09 Hgb 12.9 Hct 38.7 MCV 95 MCH 31.4 MCHC 33.2 RDW 14.9 H Plt Count 101 L Seg Neutrophils % 83.3 H Lymphocytes % 9.3 L Monocytes % 7.2 Eosinophils % 0.1 Basophils % 0.1 Absolute Neutrophils 8.1 Absolute Lymphocytes 0.9 Absolute Monocytes 0.7 Absolute Eosinophils 0.0 Absolute Basophils 0.0 Sodium Potassium Chloride Carbon Dioxide Anion Gap BUN Creatinine Est GFR ( Amer) Est GFR (Non-Af Amer) Glucose Calcium Magnesium Total Bilirubin AST ALT Alkaline Phosphatase Total Protein Albumin Triglycerides Cholesterol LDL Cholesterol Direct VLDL Cholesterol HDL Cholesterol TSH Free T4 Free T3 pg/mL 1.99 L Urine Color Urine Appearance Urine pH Ur Specific [place] Urine Protein Urine Glucose (UA) Urine Ketones Urine Blood Urine Nitrite Ur Leukocyte Esterase Urine WBC (Auto) Urine RBC (Auto) 05/15/18 05/15/18 05/15/18 19:55 23:56 23:56 Creatine Kinase 266 H CK-MB (CK-2) 4.43 Troponin I 0.150 0.171 05/16/18 05/16/18 05:59 05:59 Creatine Kinase 208 H CK-MB (CK-2) 3.87 Troponin I 0.163 Impressions: Chest X-Ray 05/15/18 19:25 IMPRESSION: 1. Cardiomegaly with pulmonary vascular congestion. 2. Bilateral airspace opacities which may represent a component of pulmonary edema versus superimposed pneumonia. 3. Probable trace bilateral pleural effusions. 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 She did not respond to diltiazem in the emergency department. She was started on an esmolol continuous infusion. She is still exhibiting RVR and her blood pressure is marginal to low. I did administer 0.25 mg of digoxin. If this is effective we may continue with chronic use. Dose will need to be adjusted based on her kidney function. She may need vasopressors for hypotension. Hopefully with better rate control her blood pressure will improve. Cardiology is consulting. (2) Acute kidney injury Is this a current diagnosis for this admission?: Yes Plan: Review of old laboratory studies revealed a GFR greater than 60 through August 2017. Her GFR is down to 24 at this admission. I have asked nephrology to see the patient. Medications will need to be adjusted based on her renal function. Her urine output since admission has been quite low. She was 2 L net positive fluid balance since admission last night. She will likely need diuresis but she may need vasopressor therapy first. (3) Acute on chronic diastolic heart failure Is this a current diagnosis for this admission?: Yes Plan: Previous echo from 2018 revealed grade 2/4 diastolic heart failure. Ejection fraction was characterized as normal. There is aortic stenosis with a gradient of 25 mmHg. (4) Amiodarone pulmonary toxicity Is this a current diagnosis for this admission?: Yes Plan: She does have diffuse rales. There is a question of amiodarone toxicity in the past. Her amiodarone was discontinued. She did receive a dose in the emergency department. She is currently on beta-gillian and digoxin therapy. We will try and avoid amiodarone. We will need to adjust her levothyroxine based on change in amiodarone. (5) Iatrogenic hyperthyroidism Is this a current diagnosis for this admission?: Yes Plan: In August her TSH was normal. It is undetectable today. She is normally on levothyroxine 125 mcg daily. Her levothyroxine is currently on hold. - Time Time Spent with patient: 35 or more minutes Medications reviewed and adjusted accordingly: Yes - Inpatient Certification Medical Necessity: Significant Comorbidiites Make Outpatient Treatment Too Risky, Need Close Monitoring Due to Risk of Patient Decompensation, Need For Continuous Telemetry Monitoring, Risk of Complication if Not Cared For in Hospital
[2018-05-16] MEDS ORDERED: ADENOSINE INJ/PF 6 MG/2 ML SDV IV ONE (12:41)
[2018-05-16] MEDS ORDERED: ATROPINE SULFATE INJ 1 MG/10 ML DISP.SYRIN IV ONE (12:42)
[2018-05-16 12:58] LABS: CREATINE KINASE MB 4.58 ng/mL (<4.55); TROPONIN I 0.134 ng/mL
[2018-05-16] MEDS ORDERED: DIGOXIN INJ 0.5 MG/2 ML AMPULE ONE (12:58)
[2018-05-16] MEDS ORDERED: NORMAL SALINE INJ/PF 0.9% 10 ML SDV IV PRN (12:58)
--- NOTE | 2018-05-16 13:04 | Operative Report ---
Operative Report DATE OF SURGERY: 05/16/18 PREOPERATIVE DIAGNOSIS: 1. Hypertension. 2. Atrial fibrillation POSTOPERATIVE DIAGNOSIS: Same OPERATION: 1. Ultrasound directed insertion of right IJ triple-lumen access catheter. 2. Ultrasound directed right brachial artery 18-gauge pressure monitoring device SURGEON: CARMEN SALINAS ANESTHESIA: Local TISSUE REMOVED OR ALTERED: See below COMPLICATIONS: None INTRAOPERATIVE FINDINGS: See below PROCEDURE: 1. Informed consent was obtained. The patient was placed in Trendelenburg the right neck and chest wall were exposed, and prepped and draped in a sterile fashion. Surgical plan and surgical timeout discussed. The right neck was anesthetized with 1% lidocaine without epinephrine. Using the variable frequency linear transducer, real time, a 18-gauge needle and wire were threaded into the right internal jugular vein. The tract was dilated up, the dilator removed, and the triple-lumen central venous access catheter was threaded into the right internal jugular vein uneventfully to the hub. There was excellent aspiration and flush of saline through all 3 lumens. The catheter was affixed to the skin with a Biopatch and 2-0 silk suture; sterile dressing applied. The patient tolerated the procedure well. There were no complications. Portable upright chest x-ray pending at time of dictation. 2. When assessed the patient's upper extremities for insertion of arterial pressure monitoring device. By ultrasonography the patient had essentially no flow in the the radial arteries; flow in the ulnar arteries was weak on the left and acceptable on the right. Therefore we approached the right ulnar artery. Right wrist was prepped and draped in sterile fashion. Skin was anesthetized 1% plain lidocaine. A kike was made in the skin proximal to the volar crease, and multiple attempts were made to cannulate the ulnar artery with the 18-gauge draining catheter using the Seldinger technique. All efforts were unsuccessful. Therefore the right wrist was aborted. We now directed our attention to the right antecubital fossa and specifically access to the right brachial artery. In a similar fashion using ultrasound as a guide, the right antecubital area was prepped with chlorhexidine, anesthetized 1% plain lidocaine, kike made the skin with a 18-gauge needle, and using the 18- gauge angiocatheter with Seldinger technique, the catheter was threaded into the right brachial artery without difficulty. It was hooked to monitoring device found to have acceptable tracer form and the catheter secured to the skin at 3 sites with a 4-0 Prolene suture. Sterile dressing was applied and a brace was applied to the right forearm for stabilization purposes. Patient tolerated procedure well. The right wrist will be monitored for any risk of neurovascular compromise.
--- NOTE | 2018-05-16 13:32 | RADIOLOGY REPORT (SQ) ---
EXAM DESCRIPTION: CHEST SINGLE VIEW COMPLETED DATE/TIME: 05/16/2018 1:17 pm REASON FOR STUDY: Status post right IJ line status post right IJ lindsey COMPARISON: AP chest 05/15/2018, 09/28/2017 CT chest 09/30/2017 EXAM PARAMETERS: NUMBER OF VIEWS: One view. TECHNIQUE: Single frontal radiographic view of the chest acquired. RADIATION DOSE: NA LIMITATIONS: None. FINDINGS: LUNGS AND PLEURA: Multifocal airspace disease in the right and left perihilar regions and right lower lobe, pneumonia versus asymmetric edema. Trace bilateral pleural effusions are present. No pneumothorax. MEDIASTINUM AND HILAR STRUCTURES: No gross enlargement HEART AND VASCULAR STRUCTURES: Moderate cardiomegaly BONES: No acute findings. HARDWARE: Right jugular central line tip in the right atrium/hepatic vena cava OTHER: Surgical clips at the GE junction and right upper quadrant IMPRESSION: Right jugular central line tip in the right atrium/hepatic vena cava No pneumothorax No change in bilateral airspace disease and trace bilateral pleural effusions TECHNICAL DOCUMENTATION: JOB ID: [id number] [employer]- All Rights Reserved Reading location - IP/workstation name: [email or web address] [email or web address]
[2018-05-16] MEDS: FAMOTIDINE 20 MG TABLET PO SCH ×2 (13:45→21:12)
[2018-05-16] MEDS: ESCITALOPRAM OXALATE 10 MG TABLET PO SCH (13:45)
[2018-05-16] MEDS: DOCUSATE SODIUM 100 MG CAPSULE PO SCH ×2 (13:45→19:47)
[2018-05-16] MEDS: BUSPIRONE HCL 10 MG TABLET PO SCH ×2 (13:46→19:47)
[2018-05-16] MEDS: MAGNESIUM OXIDE 400 MG TABLET PO SCH ×2 (13:46→19:47)
--- NOTE | 2018-05-16 15:51 | PDOC CONSULTATION ---
Consultation Consult Date: 05/16/18 Attending physician:: KARMA REYES Consult reason:: I was asked to see this patient because of worsening kidney function. History of Present Illness Admission Date/PCP: 05/15/18 22:49 History of Present Illness: RADHA LAGUERRE is a 73 year old female with history of atrial fibrillation, diastolic congestive heart failure, COPD and hypertension who was admitted on May 15 because of shortness of breath and lightheadedness and was found to have atrial fibrillation with rapid ventricular response. She said she has been off amiodarone for a while due to pulmonary toxicity. She called the EMS and they gave her IV Cardizem initially which did not work effectively. Subsequently she was started on esmolol drip until now in the ICU. He was also given a dose of digoxin. So far her heart rate has been better controlled when I saw her this afternoon. Patient was also noted to be hypotensive with systolic blood pressure as low as 80/66 and is been lingering to systolic of 90s to low 100s over 60s-70s since admission. Her initial chest x-ray showed possible pulmonary congestion versus pneumonia. Her last echocardiogram was September 13, 2017 which showed normal left ventricular ejection fraction and grade 2/4 mild to moderate diastolic dysfunction with moderately dilated left atrium and mild to moderate aortic stenosis. 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 Rowell. Patient also came in with elevated BUN and creatinine of 46 and 1.68 with estimated GFR of 30 yesterday. Today she has a BUN of 49, creatinine 1.76 with estimated GFR of 28. Previous records show that her BUN in August runs anywhere between 17 to low 20s and creatinine around 0.82-0.86 with estimated GFR greater than 60 appropriate for age. Her troponin is also mildly elevated since admi ssion. Currently she is making very minimal amount of urine. Today when I saw her in the ICU she said she is feeling much better than when she came in. Heart rate seems to be better controlled. She said her usual blood pressure at home runs 140 over 70s-80s. She denies any chest pains no shortness of breath this morning. She does admit some leg swelling. Past Medical History Cardiac Medical History: Reports: Atrial Fibrillation, CHF-Diastolic, Heart Murmur, Hypertension-primary Pulmonary Medical History: Reports: Chronic Obstructive Pulmonary Disease (COPD) Endocrine Medical History: Reports: Hypothyroidism GI Medical History: Reports: Gastroesophageal Reflux Disease Psychiatric Medical History: Reports: Depression Past Surgical History Past Surgical History: Reports: None Social History Information Source: Patient Lives with: Family - Her daughter Smoking Status: Never Smoker Frequency of Alcohol Use: Occasional Hx Recreational Drug Use: Yes Drugs: Marijuana Hx Prescription Drug Abuse: No - Advance Directive Resuscitation Status: Full Code Family History Family History: Malignancy - Throat cancer in her sister Parental Family History Reviewed: Yes Children Family History Reviewed: Yes Sibling(s) Family History Reviewed.: Yes Medication/Allergy Home Medications: Atorvastatin Calcium [Lipitor 80 mg Tablet] 80 mg PO QHS 05/16/18 Buspirone HCl [Buspar 15 mg Tablet] 15 mg PO BID 05/16/18 Docusate Sodium [Colace 100 mg Capsule] 100 mg PO BID 05/16/18 Duloxetine HCl [Cymbalta] 30 mg PO DAILY 05/16/18 Escitalopram Oxalate [Lexapro] 20 mg PO DAILY 05/16/18 Fluticasone/Vilanterol [Breo Ellipta 100-25 Mcg INH] 1 puff IH DAILY 05/16/18 Furosemide [Lasix 20 mg Tablet] 20 mg PO DAILY 05/16/18 Levothyroxine Sodium 125 mcg PO Q6AM 05/16/18 Melatonin [Melatonin 3 mg Tablet] 6 mg PO QHS 05/16/18 Montelukast Sodium [Singulair 10 mg Tablet] 10 mg PO QPM 05/16/18 Ondansetron HCl [Zofran 4 mg Tablet] 4 mg PO QIDP PRN 05/16/18 Oxycodone Myristate [Xtampza ER] 13.5 mg PO Q12 05/16/18 Pantoprazole Sodium [Protonix] 40 mg PO QAM 05/16/18 Sennosides [Laxative] 50 mg PO DAILYP PRN 05/16/18 Suvorexant [Belsomra] 5 mg PO QHS 05/16/18 Trazodone HCl [Desyrel 50 mg Tablet] 50 mg PO QHS 05/16/18 Vitafusion Probiotic 2 tab PO DAILY 05/16/18 Vitafusion [employer] 2 tab PO DAILY 05/16/18 Allergies/Adverse Reactions: codeine [Codeine] Allergy (Verified 09/11/17 01:39) haloperidol [From Haldol] Allergy (Verified 09/29/17 04:08) Change in behavior haloperidol lactate [From Haldol] Allergy (Verified 09/29/17 04:09) Change in behavior Sulfa (Sulfonamide Antibiotics) Allergy (Verified 09/29/17 04:08) rash; itching Beta-Blockers (Beta-Adrenergic Bloc Adverse Reaction (Verified 09/29/17 04:08) Bradycardia zolpidem tartrate [From Ambien] Adverse Reaction (Verified 09/29/17 04:08) sleep walk Review of Systems All systems: reviewed and no additional remarkable complaints except as stated Review of Systems: Constitutional: ABSENT: chills, fatigue, fever(s), headache(s), weight gain, weight loss Eyes: ABSENT: visual disturbances Ears: ABSENT: hearing changes Cardiovascular: ABSENT: chest pain, orthropnea, palpitations; admits dyspnea on exertion and edema Respiratory: ABSENT: cough, hemoptysis; admits shortness of breath Gastrointestinal: ABSENT: abdominal pain, constipation, diarrhea, hematemesis, hematochezia, nausea, vomiting Genitourinary: ABSENT: dysuria, hematuria Musculoskeletal: ABSENT: joint swelling Integumentary: ABSENT: rash, wounds Neurological: ABSENT: abnormal gait, abnormal speech, confusion, focal weakness, numbness, syncope; admits dizziness Psychiatric: ABSENT: anxiety, depression Endocrine: ABSENT: cold intolerance, heat intolerance, polydipsia, polyuria Hematologic/Lymphatic: ABSENT: easy bleeding, easy bruising, lymphadenopathy Physical Exam Vital Signs: Temp Pulse Resp BP Pulse Ox 98.1 F 85 19 115/73 100 05/16/18 14:00 05/16/18 14:00 05/16/18 14:00 05/16/18 14:00 05/16/18 14:00 Intake & Output 05/15/18 05/16/18 05/17/18 06:59 06:59 06:59 Intake Total 2314 149 Output Total 35 150 Balance 2279 -1 Weight 80.1 kg Exam: General appearance: No acute distress, cooperative, well-developed, well- nourished Head exam: PRESENT: atraumatic, normocephalic Eye exam: PRESENT: Conjunctiva pale, EOMI, PERRLA. ABSENT: conjunctival injection, scleral icterus Mouth exam: PRESENT: moist, neck supple, tongue midline Neck exam: PRESENT: full ROM. ABSENT: carotid bruit, JVD, lymphadenopathy, thyromegaly Respiratory exam: PRESENT: Diminished to auscultation bilaterally. Positive crackles anteriorly ABSENT: Rhonchi, stridor, wheezes Cardiovascular exam: PRESENT: Irregularly irregular, +S1, +S2. Rate 2/6 systolic murmur Pulses: PRESENT: normal radial pulses, normal dorsalis pedis pulses GI/Abdominal exam: PRESENT: normal bowel sounds, soft. ABSENT: guarding, mass, tenderness Rectal exam: Deferred Extremities exam: PRESENT: full ROM. Grade 1 bilateral lower extremity pitting edema ABSENT: calf tenderness Musculoskeletal: PRESENT: full ROM. ABSENT: deformity Neurological exam: PRESENT: alert, Awake, Oriented to person, Oriented to place, Oriented to time, reflexes normal, CN II-XII grossly intact. ABSENT: motor sensory deficit Psychiatric exam: PRESENT: appropriate affect, normal mood. ABSENT: homicidal ideation, suicidal ideation Skin exam: PRESENT: intact, dry, warm. ABSENT: rash Results Laboratory Results: 05/16/18 05:59 05/16/18 05:59 05/15/18 05/15/18 05/15/18 19:55 19:55 19:55 WBC 10.3 RBC 4.42 Hgb 13.7 Hct 41.8 MCV 95 MCH 31.0 MCHC 32.7 RDW 14.8 H Plt Count 119 L Seg Neutrophils % Not Reportable Lymphocytes % Not Reportable Monocytes % Not Reportable Eosinophils % Not Reportable Basophils % Not Reportable Absolute Neutrophils Not Reportable Absolute Lymphocytes Not Reportable Absolute Monocytes Not Reportable Absolute Eosinophils Not Reportable Absolute Basophils Not Reportable Sodium 138.5 Potassium 3.7 Chloride 103 Carbon Dioxide 26 Anion Gap 10 BUN 46 H Creatinine 1.68 H Est GFR ( Amer) 36 L Est GFR (Non-Af Amer) 30 L Glucose 180 H Calcium 8.2 L Magnesium 2.0 Total Bilirubin 2.2 H AST 57 H ALT 65 H Alkaline Phosphatase 116 Total Protein 5.0 L Albumin 2.5 L Triglycerides Cholesterol LDL Cholesterol Direct VLDL Cholesterol HDL Cholesterol TSH < 0.01 L Free T4 Free T3 pg/mL Urine Color Urine Appearance Urine pH Ur Specific [place] Urine Protein Urine Glucose (UA) Urine Ketones Urine Blood Urine Nitrite Ur Leukocyte Esterase Urine WBC (Auto) Urine RBC (Auto) 05/15/18 05/16/18 05/16/18 19:55 01:15 05:59 WBC RBC Hgb Hct MCV MCH MCHC RDW Plt Count Seg Neutrophils % Lymphocytes % Monocytes % Eosinophils % Basophils % Absolute Neutrophils Absolute Lymphocytes Absolute Monocytes Absolute Eosinophils Absolute Basophils Sodium 140.3 Potassium 4.0 Chloride 112 H Carbon Dioxide 21 L Anion Gap 7 BUN 49 H Creatinine 1.76 H Est GFR ( Amer) 34 L Est GFR (Non-Af Amer) 28 L Glucose 95 Calcium 8.3 L Magnesium 2.2 Total Bilirubin AST ALT Alkaline Phosphatase Total Protein Albumin Triglycerides 93 Cholesterol 95.68 LDL Cholesterol Direct 60 VLDL Cholesterol 19.0 HDL Cholesterol 35 L TSH Free T4 3.75 H Free T3 pg/mL Urine Color DARK YELLOW Urine Appearance SLIGHTLY-CLOUDY Urine pH 5.0 Ur Specific [place] 1.017 Urine Protein 30 H Urine Glucose (UA) NEGATIVE Urine Ketones NEGATIVE Urine Blood NEGATIVE Urine Nitrite NEGATIVE Ur Leukocyte Esterase NEGATIVE Urine WBC (Auto) 4 Urine RBC (Auto) 0 05/16/18 05/16/18 05:59 05:59 WBC 9.7 RBC 4.09 Hgb 12.9 Hct 38.7 MCV 95 MCH 31.4 MCHC 33.2 RDW 14.9 H Plt Count 101 L Seg Neutrophils % 83.3 H Lymphocytes % 9.3 L Monocytes % 7.2 Eosinophils % 0.1 Basophils % 0.1 Absolute Neutrophils 8.1 Absolute Lymphocytes 0.9 Absolute Monocytes 0.7 Absolute Eosinophils 0.0 Absolute Basophils 0.0 Sodium Potassium Chloride Carbon Dioxide Anion Gap BUN Creatinine Est GFR ( Amer) Est GFR (Non-Af Amer) Glucose Calcium Magnesium Total Bilirubin AST ALT Alkaline Phosphatase Total Protein Albumin Triglycerides Cholesterol LDL Cholesterol Direct VLDL Cholesterol HDL Cholesterol TSH Free T4 Free T3 pg/mL 1.99 L Urine Color Urine Appearance Urine pH Ur Specific [place] Urine Protein Urine Glucose (UA) Urine Ketones Urine Blood Urine Nitrite Ur Leukocyte Esterase Urine WBC (Auto) Urine RBC (Auto) 05/15/18 05/15/18 05/15/18 19:55 23:56 23:56 Creatine Kinase 266 H CK-MB (CK-2) 4.43 Troponin I 0.150 0.171 05/16/18 05/16/18 05/16/18 05:59 05:59 12:19 Creatine Kinase 208 H 214 H CK-MB (CK-2) 3.87 Troponin I 0.163 05/16/18 12:19 Creatine Kinase CK-MB (CK-2) 4.58 H Troponin I 0.134 Impressions: Chest X-Ray 05/16/18 00:00 IMPRESSION: Right jugular central line tip in the right atrium/hepatic vena cava No pneumothorax No change in bilateral airspace disease and trace bilateral pleural effusions Assessment & Plan - Diagnosis (1) Acute kidney injury Is this a current diagnosis for this admission?: Yes Plan: Currently the patient is oliguric. Worsening kidney function likely secondary to initial prerenal factors with A. fib with RVR, CHF and hypotension which could be leading to acute tubular necrosis if it continues to get worse. Hopefully if the patient's heart rate gets controlled and the blood pressure improves, the kidney function will improve as well. Just in case the kidney function continues to get worse at this point we have to monitor and reevaluate her for potential need for renal replacement therapy. At this time there is no urgent indication for renal replacement therapy. I discussed the possibility of this with the patient and she agreed to proceed once it becomes necessary. Continue to monitor kidney function and electrolytes. Avoid nephrotoxic medications and adjust patient's medications accordingly according to kidney function. (2) Atrial fibrillation with RVR Is this a current diagnosis for this admission?: Yes Plan: Currently on esmolol drip and cardiology following. (3) Iatrogenic hyperthyroidism Is this a current diagnosis for this admission?: Yes Plan: Could be related to previous amiodarone treatment. (4) Acute on chronic diastolic heart failure Is this a current diagnosis for this admission?: Yes Plan: Certainly have this acute exacerbation of her heart failure likely secondary to atrial fibrillation. She may need some low-dose diuretics once her heart rate and blood pressure improves. (5) Elevated troponin Is this a current diagnosis for this admission?: Yes Plan: Improving. - Notes Notes: Thank you very much for this consultation. We will follow the patient with you. - Time Time Spent: Greater than 70 Minutes
[2018-05-16] MEDS: ASPIRIN 81 MG TABLET, CHEWABLE PO SCH (16:10)
[2018-05-16] MEDS: MONTELUKAST SODIUM 10 MG TABLET PO SCH (21:12)
--- NOTE | 2018-05-16 22:12 | PDOC CONSULTATION ---
Consultation-Blank Consultation: CARDIOLOGY CONSULTATION by Dr. Kristen Davis on 05/16/2018. Patient seen at 11 AM on 05/16/2018. REASON all comes for CONSULTATION: Patient with atrial fibrillation with rapid ventricular response, and relative hypotension, with no real good response to IV amiodarone. HISTORY PRESENT ILLNESS: Patient is a 73-year-old female with known history of proximal atrial fibrillation, COPD, chronic kidney disease, hypertension who states since the past 4 days has been having progressively increasing shortness of breath lightheadedness dizziness and generalized weakness. This progressed to the point where the patient could not even stand up due to weakness. She denies any chest pain or discomfort. When 911 was called the paramedics examined the patient she was in atrial fibrillation with a ventricular response of 180 bpm. In the emergency room the patient was given a bolus of amiodarone and subsequently started on amiodarone drip. This did not control the heart rate. Hence the patient was started on esmolol drip which did help to control the heart rate of note the patient is on replacement therapy for hypo-thyroidism. Her TSH came back at less than 0.01 and a free T4 was slightly elevated. This suggests iatrogenic hyperthyroidism. At present in the ICU the patient's on 50 mcg of esmolol, heart rate is about 110 bpm and the blood pressure is anywhere from 90 systolic to 107 systolic. The patient is awake alert and oriented x3, denies any chest pain or discomfort. She has chronic orthopnea. There is no leg edema there is no PND there is no chest pain or discomfort. There is no wheezing. The patient denies any cough or sputum production. Although she denies any fever chills or rigors and without any cough or wheezing or other symptoms suggestive of acute exacerbation of COPD the patient's chest x-ray is suggestive of multifocal pneumonia in both lungs versus congestive heart failure. The earlier pattern of congestive heart failure is much improved now. PAST MEDICAL HISTORY: The patient has a history of proximal atrial fibrillation. And was maintained in sinus rhythm in the past on amiodarone. She was admitted and September [id number] with acute exacerbation of COPD. At that time a PFT suggestive significant restrictive lung disease, and a DLCO which is 53%. And amiodarone toxicity was suspected and the patient's amiodarone was discontinued. Subsequently due to the patient's having had chest pains a stress test was obtained which was abnormal and was possible reversible ischemia. [facility], which showed nonobstructive coronary artery disease. She has a history of hypertension. History of COPD, and non-Hodgkin's lymphoma. 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 She has not followed up on her treatment for her non-Hodgkin's lymphoma, although she states that it has been cured. She has no history of diabetes mellitus. She has a history of GERD and hypothyroidism and is on replacement therapy with 6 thyroid replacement. There is no history of TIA CVA. She also has chronic kidney disease stage III. This is worsened now and the patient's has acute on chronic renal failure, most likely secondary to patient being relatively hypotensive in the emergency room with a blood pressure ranging from anywhere from 80 systolic to 90 systolic, and atrial fibrillation with rapid ventricular response. PAST SURGICAL HISTORY: History of gastric bypass surgery, cholecystectomy, appendectomy, tonsillectomy and adenoidectomy. She also has a history of surgery in her throat she has also had a tummy tuck surgery. FAMILY HISTORY: Is positive for coronary artery disease in the father but father of cancer. ALLERGIES: She is allergic to codeine Haldol, sulfa, beta-blockers she gets bradycardia but the patient is tolerating esmolol at present in the past she was able to tolerate Coreg. She is also on she is also allergic to zolpidem tar trate [Ambien]. SOCIAL HISTORY: There is no history of EtOH abuse the patient is non-smoker. REVIEW SYSTEMS: Constitutional denies any fever chills or rigors. Complains of generalized fatigue and weakness. HEAD: Denies headaches or head injury. EYES: No history of amblyopia diplopia no history of amaurosis fugax. EARS: No history of hearing loss no history of tinnitus no history of recurrent ear infections. NOSE: No history of hayfever. No history of nosebleeds no history of nasal polyps. MOUTH: No history of altered taste sensation. No ulcers in the mouth. No bleeding from the gums. THROAT: No odynophagia or dysphagia. No history of recurrent sore throats. The patient has hoarseness of voice, which is chronic. This is due to recurrent intubations, causing local cord paralysis, when she had a non-Hodgkin's lymphoma for various diagnostic/biopsy purposes. SKIN: There are no skin there is no history of pruritus there is no history of yellowish discoloration of the skin. There is no psoriasis or history of skin cancer. NECK: Denies any neck pain or swelling in the neck. LUNGS: History of COPD present due to a history of asthma. The patient has never smoked. There is no history of sleep apnea no history of pulmonary embolism. No symptoms of acute exacerbation of COPD. No recent symptoms of upper or lower respiratory tract infections, although chest x-ray the differential is congestive heart failure versus multifocal pneumonia in both lungs. There is no hemoptysis there is no pleuritic chest pain. CARDIAC: History of hypertension present history of paroxysmal atrial fibrillation at present there is a breakthrough atrial fibrillation with rapid ventricular response. This is most likely secondary to iatrogenic hyperthyroidism. Past history of lung toxicity with amiodarone with a reduced DLCO. She has a past history of congestive heart failure when she had atrial fibrillation with rapid ventricular response. She also has a history of chronic left bundle branch block pattern. She had her echo in the August/October 2017 showed normal left ejection fraction, grade 2 there is moderate diastolic dysfunction. Note that the patient was supposed to be on chronic anticoagulation therapy, but the patient has not been taking Eliquis at home. She does have recent palpitations due to rapid atrial fibrillation. There is no syncope, she has generalized fatigue and generalized weakness and inability to stand, which is usually when she goes into atrial fibrillation with rapid ventricular response. ENDOCRINE: There is no history of diabetes mellitus. No history of polydipsia polyuria. History of hypothyroidism on replacement at present patient has iatrogenic hypothyroidism with a low TSH levels and elevated T4 levels. There is no history of heat or cold intolerance. METABOLIC: She has no history of hyperlipidemia her lipid levels are very good. She has history of obesity in the past which has been helped a gastric bypass/bariatric surgery. There is no history of gout. RENAL: She has a history of chronic kidney disease stage III at present this is worsened. No symptoms of hematuria pyuria or dysuria. No symptoms of UTI. MUSCULOSKELETAL: Denies any history of arthritis or collagen vascular disease. GI: History of GERD present no history of fatty food intolerance no history of GI bleed no history of altered bowel movements. No history of ascites or jaundice. No history of hepatitis. No history of cirrhosis of the liver. No history of altered bowel movements. 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 PSYCHIATRIC. She has a history of depression which is well controlled with medication. There is no history of anxiety no history of suicidal ideation. No history of homicidal ideation. VASCULAR: No history of calf or buttock claudication no history of DVT. HEMATOLOGICAL: History of non- Hodgkin's lymphoma stage II in the past and the patient states has been cured but she has not followed up with a oncologist. DISPOSITION: The patient is a full code her daughter is her surrogate healthcare decision maker PHYSICAL EXAMINATION: The patient is mildly obese. She appears to be chronically ill but she is well-groomed. At present the patient is not in any acute distress. Selected Entries 05/16/18 05/16/18 05/16/18 11:57 12:00 14:00 Temperature 99.0 F 99.0 F Heart Rate ( 94 105 Monitors) Respiratory 23 H 24 H Rate Blood Pressure 97/66 L Blood Pressure 76 Mean O2 Sat by Pulse 97 100 Oximetry Oxygen Delivery Nasal Cannula Method ( includes room air) Oxygen Flow 2 L/min 2 Rate HEAD: Atraumatic, normocephalic. EYES: Pupils equal round and reactive to light, extraocular movements intact, sclera anicteric, conjunctiva are normal. ENT: TMs normal, nares patent, oropharynx clear without exudates. Moist mucous membranes. NECK: Normal range of motion, supple without lymphadenopathy or JVD. Carotids are equal there is no bruits. There is no thyromegaly. There is no accessory muscles of respiration in use. Trachea central LUNGS: There is diminished air entry and prolonged expiration. There is occasional scattered rhonchi. There is no wheezing or rales. On palpation there is no chest wall tenderness. HEART: S1-S2 is heard. S1 is of intensity. There is no S3 gallop. There is no S4 gallop. There is systolic murmur left sternal border and apex without radiation. There is no rub.. ABDOMEN: Soft, nontender, normoactive bowel sounds. There is no hepatosplenic megaly no guarding, no rebound. No masses appreciated. EXTREMITIES: Normal range of motion, no pitting or edema. No clubbing or cyanosis. Femorals are well felt. There is no femoral bruits. Leg pulses are well felt. There is no DVT or cellulitis. There is no calf tenderness NEUROLOGICAL: Cranial nerves II through XII grossly intact. Normal speech, normal gait. The patient is awake alert oriented x3 with no focal deficits. PSYCH: Normal mood, normal affect. The patient judgment and insight are intact SKIN: Warm, Dry, normal turgor, no rashes or lesions noted. There is no petechia or ecchymosis. 05/15/18 05/15/18 05/15/18 19:55 19:55 19:55 WBC 10.3 RBC 4.42 Hgb 13.7 Hct 41.8 MCV 95 MCH 31.0 MCHC 32.7 RDW 14.8 H Plt Count 119 L Total Counted 100 Seg Neutrophils % Not Reportable Seg Neuts % (Manual) 90 H Lymphocytes % Sodium Potassium Chloride Carbon Dioxide Anion Gap BUN Creatinine Est GFR (Non-Af Amer) Glucose Calcium Magnesium Creatine Kinase CK-MB (CK-2) Troponin I 0.150 Triglycerides Cholesterol LDL Cholesterol Direct VLDL Cholesterol HDL Cholesterol TSH < 0.01 L Free T4 Free T3 pg/mL 05/15/18 05/15/18 05/16/18 19:55 23:56 05:59 WBC RBC Hgb Hct MCV MCH MCHC RDW Plt Count Total Counted Seg Neutrophils % Seg Neuts % (Manual) Lymphocytes % Sodium 140.3 Potassium 4.0 Chloride 112 H Carbon Dioxide 21 L Anion Gap 7 BUN 49 H Creatinine 1.76 H Est GFR (Non-Af Amer) 28 L Glucose 95 Calcium 8.3 L Magnesium 2.2 Creatine Kinase 208 H CK-MB (CK-2) 4.43 Troponin I 0.171 Triglycerides 93 Cholesterol 95.68 LDL Cholesterol Direct 60 VLDL Cholesterol 19.0 HDL Cholesterol 35 L TSH Free T4 3.75 H Free T3 pg/mL 05/16/18 05/16/18 05/16/18 05:59 05:59 05:59 WBC 9.7 RBC 4.09 Hgb 12.9 Hct 38.7 MCV 95 MCH 31.4 MCHC 33.2 RDW 14.9 H Plt Count 101 L Total Counted Seg Neutrophils % 83.3 H Seg Neuts % (Manual) Lymphocytes % 9.3 L Sodium Potassium Chloride Carbon Dioxide Anion Gap BUN Creatinine Est GFR (Non-Af Amer) Glucose Calcium Magnesium Creatine Kinase CK-MB (CK-2) 3.87 Troponin I 0.163 Triglycerides Cholesterol LDL Cholesterol Direct VLDL Cholesterol HDL Cholesterol TSH Free T4 Free T3 pg/mL 1.99 L 05/15/18 19:26 Diltiazem HCl/D5w [Cardizem RTU Inj 125 mg-D5w 125 ml Premix] 125 mg in 125 ml IV CONTINUOUS Normal Saline [NaCl 0.9% 500 ml IV Soln] 500 ml IV NOW 05/15/18 20:26 Amiodarone HCl [Cordarone Inj 150 mg/3 ml Vial] 150 mg Dextrose 5%-Water [D5w 100 ml IV Soln] 100 ml IV NOW 05/15/18 20:27 Amiodarone HCl [Cordarone Inj 150 mg/3 ml Vial] 900 mg Dextrose 5%-Water [D5w 500 ml IV Soln] 500 ml IV CONTINUOUS 05/15/18 20:28 Normal Saline [NaCl 0.9% 500 ml IV Soln] 500 ml IV NOW 05/15/18 20:34 Amiodarone HCl [Cordarone Inj 150 mg/3 ml Vial] 150 mg IV .STK-MED ONE 05/15/18 23:06 Mag Hydrox/Al Hydrox/Simeth [Maalox Plus Susp 30 Udcup] 30 ml PO Q6HP PRN Magnesium Hydroxide [Milk of Magnesia 30 ml Udcup] 30 ml PO HSP PRN Ondansetron HCl/Pf [Zofran Inj/Pf 4 mg/2 ml Sdv] 4 mg IV Q4HP PRN Ondansetron [Zofran Odt 4 mg Tablet] 4 mg PO Q4HP PRN 05/15/18 23:15 Albuterol Sulfate [Proair Respiclick] 2 puff IH Q2HP PRN 05/15/18 23:24 Esmolol HCl/Sod Cl [Brevibloc RTU 2500 mg/250 ml NaCl Premix Bag] 2,500 mg in 250 ml IV CONTINUOUS: The patient is 50 mcg/min infusion 05/15/18 23:45 Albuterol Sulfate [Ventolin 0.083% Neb 2.5 mg/3 ml Ampul] 2.5 mg NEB Q2HP PRN 05/16/18 00:20 Apixaban [Eliquis 5 mg Tablet] 5 mg PO NOW ONE 05/16/18 03:48 Normal Saline 1000 ml [NaCl 0.9% 1000 ml IV Soln] 1,000 ml IV CONTINUOUS 05/16/18 04:15 Normal Saline 1000 ml [NaCl 0.9% 1000 ml IV Soln] 500 ml IV BOLUS 05/16/18 05:00 Normal Saline [NaCl 0.9% 500 ml IV Soln] 500 ml IV BOLUS 05/16/18 06:00 Normal Saline [Saline Flush 2.5 ml Monoject Prefil Syrin] 2.5 ml IV Q8 05/16/18 08:00 Budesonide [Pulmicort Neb 0.5 mg/2 ml Ampul] 0.5 mg NEB RTQ12 Ipratropium [place] [Atrovent 0.02% Neb 0.5 mg/2.5 ml Ampul] 0.5 mg NEB RTQ8 Levalbuterol HCl [Xopenex Neb 1.25 mg/3 ml Ampul] 1.25 mg NEB RTQ8 05/16/18 10:00 Apixaban [Eliquis 5 mg Tablet] 5 mg PO BID Aspirin [Aspirin 81 mg Chewable Tablet] 81 mg PO DAILY Buspirone HCl [Buspar 10 mg Tablet] 15 mg PO BID Digoxin Inj [Lanoxin Inj 0.5 mg/2 ml Ampule] 0.25 mg IV NOW ONE Docusate Sodium [Colace 100 mg Capsule] 100 mg PO BID Escitalopram Oxalate [Lexapro 10 mg Tablet] 20 mg PO DAILY Famotidine [Pepcid 20 mg Tablet] 20 mg PO Q12 Fluticasone/Vilanterol [Breo Ellipta 100-25 Mcg INH] 1 puff IH DAILY Furosemide [Lasix 20 mg Tablet] 20 mg PO DAILY Magnesium Oxide [Mag-Ox 400 mg Tablet] 400 mg PO BID 05/16/18 11:37 Heparin Sodium,Porcine [Heparin Flush 10 Unit/ml 5 ml Disp.syrg] 50 unit IV .STK-MED ONE 05/16/18 11:49 Heparin Sodium,Porcine [Heparin Flush 10 Unit/ml 5 ml Disp.syrg] 50 unit IV .STK-MED ONE 05/16/18 12:41 Adenosine [Adenocard Inj/Pf 6 mg/2 ml Sdv] 6 mg IV .STK-MED ONE 05/16/18 12:42 Atropine Sulfate [Atropine Sulfate Inj 1 mg/10 ml Disp.syrin] 1 mg IV .STK-MED ONE 05/16/18 12:58 Digoxin Inj [Lanoxin Inj 0.5 mg/2 ml Ampule] 0.5 mg .ROUTE .[facility] ONE Heparin Sodium,Porcine [Heparin Flush 10 Unit/ml 5 ml Disp.syrg] 30 unit IV .AFTER EACH USE PRN Normal Saline [NaCl 0.9% Inj/Pf 10 ml Sdv] 10 ml IV .AFTER EACH USE PRN 05/16/18 14:00 Heparin Sodium,Porcine [Heparin Flush 10 Unit/ml 5 ml Disp.syrg] 30 unit IV Q8 05/16/18 22:00 Montelukast Sodium [Singulair 10 mg Tablet] 10 mg PO QHS 05/17/18 18:00 Apixaban [Eliquis 2.5 mg Tablet] 2.5 mg PO BID The patient's chest x-ray shows initially congestive heart failure, possible pneumonia and possibly trace bilateral pleural effusions. His subsequent chest x-ray shows multifocal opacities CHF versus pneumonia. The patient's EKG shows atrial fibrillation with left bundle branch block pattern with rapid ventricular response. IMPRESSION/RECOMMENDATION: 1. Recurrent atrial fibrillation with rapid ventricular response: Would not use amiodarone especially in view of the patient's abnormal TSH and elevated free T4 levels. We will continue patient on esmolol. Subsequently we will switch the patient to a calcium channel gillian. This is due in the past that the patient has had undue bradycardia with beta-blockers. Continue agree with Eliquis. 2. Iatrogenic hyperthyroidism. Would recommend holding the patient's thyroid replacement. 2. Acute on chronic kidney disease. At present patient's kidney function is stage IV compared to her baseline of stage III. 4. ELEVATED TROPONIN: No evidence of non-ST elevation GA this is secondary to supply demand mismatch due to the patient's atrial fibrillation with rapid ventricular response, borderline hypotension, and in a setting of acute on chronic kidney disease. Note the patient's cardiac catheterization in October 2017 showed nonobstructive coronary artery disease. 5. COPD: Seems to be in remission. 6. Congestive heart failure secondary to atrial fibrillation with rapid ventricular response in a patient with LV diastolic dysfunction. At present the patient does not seem to be in heart failure. 7. Possible pneumonia: We will observe the patient clinically. At present patient is afebrile and has no symptoms suggestive of pneumonia. 8. Non-Hodgkin's lymphoma:? Cured. Patient later would be recommended CVA on cologist as an outpatient. Medications reviewed. Medications adjusted. Management plan discussed with the attending physician on the case. Discussed with the patient also. Medical decision making is of high complexity. 60 minutes spent on this patient more than 50% of time spent in direct patient care. We will follow with you
--- NOTE | 2018-05-17 00:07 | EKG REPORT ---
SEVERITY:- ABNORMAL ECG - CAN NOT R/O ATRIAL FIBRILLATION, REC REPEAT EKG PAIRED VENTRICULAR PREMATURE COMPLEXES ABERRANT COMPLEX, POSSIBLY SUPRAVENTRICULAR LEFT BUNDLE BRANCH BLOCK : Confirmed by: Junior Werner 17-May-2018 00:07:02
--- NOTE | 2018-05-17 00:08 | EKG REPORT ---
SEVERITY:- ABNORMAL ECG - SINUS RHYTHM FIRST DEGREE AV BLOCK IVCD, CONSIDER ATYPICAL LBBB : Confirmed by: Junior Werner 17-May-2018 00:07:39
--- NOTE | 2018-05-17 00:08 | EKG REPORT ---
SEVERITY:- ABNORMAL ECG - SINUS RHYTHM MULTIFORM VENTRICULAR PREMATURE COMPLEXES AND APC IVCD, CONSIDER ATYPICAL LBBB : Confirmed by: Junior Werner 17-May-2018 00:07:32
[2018-05-17] MEDS: LEVALBUTEROL HCL NEB 1.25 MG/3 ML AMPUL NEB SCH ×3 (00:27→15:49)
[2018-05-17] MEDS: IPRATROPIUM BROMIDE 0.02% NEB 0.5 MG/2.5 ML AMPUL NEB SCH ×3 (00:27→15:49)
[2018-05-17] MEDS: ESMOLOL HCL/SOD CL 2,500 MG/250 ML RTUINJ IV PRN ×4 (03:24→19:22)
[2018-05-17 05:12] LABS: ABSOLUTE EOSINOPHILS # (AUTO) 0.1 10^3/uL (0.0-0.6); ABSOLUTE LYMPHOCYTES (AUTO) 0.8 10^3/uL (0.5-4.7); ABSOLUTE MONOCYTES (AUTO) 0.6 10^3/uL (0.1-1.4); ABSOLUTE NEUT (AUTO) 8.3 10^3/uL (1.7-8.2); BASOPHILS % (AUTO) 0.2 % (0-2); EOSINOPHILS % (AUTO) 0.8 % (0-6); HEMATOCRIT 39.6 % (36.0-47.0); HEMOGLOBIN 13.2 g/dL (12.0-15.5); LYMPHOCYTES % (AUTO) 8.4 % (13-45); MEAN CORPUSCULAR HEMOGLOBIN 31.1 pg (27.0-33.4); MEAN CORPUSCULAR HGB CONC 33.3 g/dL (32.0-36.0); MEAN CORPUSCULAR VOLUME 93 fl (80-97); PLATELET COUNT 119 10^3/uL (150-450); RED BLOOD COUNT 4.25 10^6/uL (3.72-5.28); SEGMENTED NEUTROPHILS % (AUTO) 84.6 % (42-78); TOTAL CELLS COUNTED % (AUTO) 100 %; WHITE BLOOD COUNT 9.8 10^3/uL (4.0-10.5)
[2018-05-17 05:22] LABS: ANION GAP 5 (5-19); BLOOD UREA NITROGEN 48 mg/dL (7-20); CALCIUM 8.3 mg/dL (8.4-10.2); CARBON DIOXIDE 26 mmol/L (22-30); CHLORIDE 108 mmol/L (98-107); GLUCOSE 96 mg/dL (75-110); POTASSIUM 3.8 mmol/L (3.6-5.0); SODIUM 138.6 mmol/L (137-145)
[2018-05-17] MEDS: BUDESONIDE NEB 0.5 MG/2 ML AMPUL NEB SCH ×2 (08:11→19:07)
--- NOTE | 2018-05-17 09:10 | RADIOLOGY REPORT (SQ) ---
EXAM DESCRIPTION: CHEST SINGLE VIEW COMPLETED DATE/TIME: 05/17/2018 8:44 am REASON FOR STUDY: new crackles throughout COMPARISON: Previous day. NUMBER OF VIEWS: One view. TECHNIQUE: Single frontal radiographic image of the chest acquired. LIMITATIONS: None. FINDINGS: LUNGS AND PLEURA: Bilateral airspace disease and small pleural effusions not significantly changed allowing for differences in technique. MEDIASTINUM AND HEART: Stable heart size and mediastinal structures. SUPPORT DEVICES: Appropriate location without change. BONY STRUCTURES: No acute findings. HARDWARE: None. OTHER: No other significant finding. IMPRESSION: Bilateral airspace disease consistent with edema or pneumonia. No significant change. Reading location - IP/workstation name: [email or web address]
--- NOTE | 2018-05-17 10:22 | PDOC PROGRESS REPORT ---
Subjective Progress Note for:: 05/17/18 Subjective:: Patient said she is feeling fine and denies any shortness of breath no chest pains. Her blood pressure is still a little bit on the low side. Unfortunately her arterial line needed to be removed due to bleeding this morning. She is making some urine but not a lot. Urine output for the last 24 hours was 720 mL only. Reason For Visit: ATRIAL FIBRILLATION WITH RAPID VENTRICULAR Physical Exam Vital Signs: Temp Pulse Resp BP Pulse Ox 98.6 F 117 H 19 93/75 L 100 05/17/18 08:00 05/17/18 08:00 05/17/18 08:00 05/17/18 08:00 05/17/18 08:00 Intake & Output 05/16/18 05/17/18 05/18/18 06:59 06:59 06:59 Intake Total 2314 1609 250 Output Total 35 720 45 Balance 2279 889 205 Weight 80.1 kg 82.8 kg Exam: General appearance: PRESENT: no acute distress, cooperative, well-developed, well-nourished Head exam: PRESENT: atraumatic, normocephalic Eye exam: PRESENT: conjunctiva pale, PERRLA. ABSENT: scleral icterus Neck exam: ABSENT: JVD Respiratory exam: [PRESENT: Diminished breath sounds. Positive crackles in anterior lung reilly ABSENT: Cardiovascular exam: PRESENT: Irregular rate rhythm -+S1, +S2. ABSENT: diastolic murmur, systolic murmur GI/Abdominal exam: PRESENT: normal bowel sounds, soft. ABSENT: guarding, mass, tenderness Extremities exam: Grade 1 bilateral lower extremity pitting edema Neurological exam: PRESENT: alert, awake, oriented to person, place and time. Skin exam: PRESENT: dry, warm, Results Laboratory Results: 05/17/18 04:57 05/17/18 04:57 05/17/18 05/17/18 04:57 04:57 WBC 9.8 RBC 4.25 Hgb 13.2 Hct 39.6 MCV 93 MCH 31.1 MCHC 33.3 RDW 15.0 H Plt Count 119 L Seg Neutrophils % 84.6 H Lymphocytes % 8.4 L Monocytes % 6.0 Eosinophils % 0.8 Basophils % 0.2 Absolute Neutrophils 8.3 H Absolute Lymphocytes 0.8 Absolute Monocytes 0.6 Absolute Eosinophils 0.1 Absolute Basophils 0.0 Sodium 138.6 Potassium 3.8 Chloride 108 H Carbon Dioxide 26 Anion Gap 5 BUN 48 H Creatinine 1.52 H Est GFR ( Amer) 41 L Est GFR (Non-Af Amer) 34 L Glucose 96 Calcium 8.3 L Magnesium 2.2 05/15/18 05/15/18 05/15/18 19:55 23:56 23:56 Creatine Kinase 266 H CK-MB (CK-2) 4.43 Troponin I 0.150 0.171 05/16/18 05/16/18 05/16/18 05:59 05:59 12:19 Creatine Kinase 208 H 214 H CK-MB (CK-2) 3.87 Troponin I 0.163 05/16/18 12:19 Creatine Kinase CK-MB (CK-2) 4.58 H Troponin I 0.134 Impressions: Chest X-Ray 05/17/18 08:07 IMPRESSION: Bilateral airspace disease consistent with edema or pneumonia. No significant change. Assessment & Plan - Diagnosis (1) Acute kidney injury Is this a current diagnosis for this admission?: Yes Plan: Due to prerenal factors with mild ATN. Urine output has improved but could be better. Kidney function actually slightly better. Patient's chest x-ray she still shows possible pulmonary congestion versus pneumonia and clinically she has edema. I will give her a low-dose Lasix of 20 mg IV x1 dose today in view of her hypotension. We will evaluate response. (2) Atrial fibrillation with RVR Is this a current diagnosis for this admission?: Yes Plan: Now with controlled ventricular response and esmolol. Cardiology following. (3) Iatrogenic hyperthyroidism Is this a current diagnosis for this admission?: Yes Plan: Possibly due to amiodarone toxicity. (4) Acute on chronic diastolic heart failure Is this a current diagnosis for this admission?: Yes Plan: Give a dose of low-dose Lasix 20 mg IV with systolic blood pressure of 90 and above. (5) Elevated troponin Is this a current diagnosis for this admission?: Yes Plan: Improving. Cardiology following. - Time Time with patient: 15-25 minutes
[2018-05-17] MEDS ORDERED: FUROSEMIDE INJ/PF 20 MG/2 ML SDV IV ONE ×2 (10:45→20:34)
[2018-05-17] MEDS: BUSPIRONE HCL 10 MG TABLET PO SCH ×2 (11:14→18:08)
[2018-05-17] MEDS: MAGNESIUM OXIDE 400 MG TABLET PO SCH ×2 (11:14→18:07)
[2018-05-17] MEDS: ESCITALOPRAM OXALATE 10 MG TABLET PO SCH (11:15)
[2018-05-17] MEDS: DOCUSATE SODIUM 100 MG CAPSULE PO SCH ×2 (11:15→18:08)
[2018-05-17] MEDS: FAMOTIDINE 20 MG TABLET PO SCH ×2 (11:15→21:22)
[2018-05-17] MEDS: ASPIRIN 81 MG TABLET, CHEWABLE PO SCH (11:15)
[2018-05-17] MEDS ORDERED: PHENYLEPHRINE HCL INJ/PF 10 MG/1 ML SDV ONE (12:21)
[2018-05-17] MEDS: DEXTROSE 5%-WATER 250 ML with PHENYLEPHRINE HCL 40 MG IV PRN ×4 (12:27→19:22)
[2018-05-17 14:27] LABS: AMIODARON SERUM 0.3 ug/mL (1.0-2.5); NORAMIODARONE SERUM None Detected ug/mL (1.0-2.5)
[2018-05-17] MEDS ORDERED: DIGOXIN INJ 0.5 MG/2 ML AMPULE IV ONE (17:00)
--- NOTE | 2018-05-17 17:10 | PDOC PROGRESS REPORT ---
Subjective Progress Note for:: 05/17/18 Subjective:: This is a 73 year old female with a PMH of paroxysmal Afib, history of amiodarone toxicity, hypothyroidism, COPD on 2L of home O2, CAD and diastolic heart failure who initially had light headedness and was found to be in Afib with RVR by EMs (HR in the 180s). She was started on esmolol drip and was admitted to the ICU. This morning, patient appeared comfortable but later had SOB and was breathing in the 30s. She was given a dose of IV Lasix and her blood pressure went down to the 50 systolic. Esmolol drip was initially held. Upon re-evaluation, she denies chest pain or SOB. She was started on neosynephrine with prompt improvement of her blood pressure and esmolol was later also resumed. She did have fine crackles bilaterally. Will pursue a chest CT to further assess her lungs. Reason For Visit: ATRIAL FIBRILLATION WITH RAPID VENTRICULAR Physical Exam Vital Signs: Temp Pulse Resp BP Pulse Ox 99.1 F 110 H 18 97/84 L 100 05/17/18 10:19 05/17/18 10:00 05/17/18 10:19 05/17/18 10:19 05/17/18 10:00 Intake & Output 05/16/18 05/17/18 05/18/18 06:59 06:59 06:59 Intake Total 2314 1609 397 Output Total 35 720 195 Balance 2279 889 202 Weight 176 lb 9.444 oz 182 lb 8.684 oz General appearance: PRESENT: mild distress Head exam: PRESENT: atraumatic, normocephalic Eye exam: PRESENT: conjunctiva pink, EOMI, PERRLA. ABSENT: scleral icterus Ear exam: PRESENT: normal external ear exam Mouth exam: PRESENT: moist, tongue midline Neck exam: ABSENT: carotid bruit, JVD, lymphadenopathy, thyromegaly Respiratory exam: PRESENT: rales - bilaterally. ABSENT: wheezes Cardiovascular exam: PRESENT: irregular rhythm, tachycardia. ABSENT: bradycardia GI/Abdominal exam: PRESENT: normal bowel sounds, soft. ABSENT: distended, guarding, mass, organolmegaly, rebound, tenderness Rectal exam: PRESENT: deferred Neurological exam: PRESENT: alert, awake, oriented to person, oriented to place. ABSENT: oriented to time, oriented to situation Results Laboratory Results: 05/17/18 04:57 05/17/18 04:57 05/17/18 05/17/18 04:57 04:57 WBC 9.8 RBC 4.25 Hgb 13.2 Hct 39.6 MCV 93 MCH 31.1 MCHC 33.3 RDW 15.0 H Plt Count 119 L Seg Neutrophils % 84.6 H Lymphocytes % 8.4 L Monocytes % 6.0 Eosinophils % 0.8 Basophils % 0.2 Absolute Neutrophils 8.3 H Absolute Lymphocytes 0.8 Absolute Monocytes 0.6 Absolute Eosinophils 0.1 Absolute Basophils 0.0 Sodium 138.6 Potassium 3.8 Chloride 108 H Carbon Dioxide 26 Anion Gap 5 BUN 48 H Creatinine 1.52 H Est GFR ( Amer) 41 L Est GFR (Non-Af Amer) 34 L Glucose 96 Calcium 8.3 L Magnesium 2.2 05/15/18 05/15/18 05/15/18 19:55 23:56 23:56 Creatine Kinase 266 H CK-MB (CK-2) 4.43 Troponin I 0.150 0.171 05/16/18 05/16/18 05/16/18 05:59 05:59 12:19 Creatine Kinase 208 H 214 H CK-MB (CK-2) 3.87 Troponin I 0.163 05/16/18 12:19 Creatine Kinase CK-MB (CK-2) 4.58 H Troponin I 0.134 Impressions: Chest X-Ray 05/17/18 08:07 IMPRESSION: Bilateral airspace disease consistent with edema or pneumonia. No significant change. Assessment & Plan - Diagnosis (1) Atrial fibrillation with RVR Is this a current diagnosis for this admission?: Yes Plan: Resumed on esmolol drip. Eliquis was also resumed (held yesterday due to bleeding on site of art line) and will be restarted today. (2) Hypotension Is this a current diagnosis for this admission?: Yes Plan: Blood pressures have improved after starting neosynephrine. Her blood pressure dropped after being given 20 mg of IV Lasix. (3) Acute kidney injury Is this a current diagnosis for this admission?: Yes Plan: Creatinine has improved to 1.5 from 1.7. Nephrology following. - Time Time Spent with patient: 35 or more minutes
--- NOTE | 2018-05-17 17:14 | RADIOLOGY REPORT (SQ) ---
EXAM DESCRIPTION: CT CHEST WITHOUT COMPLETED DATE/TIME: 05/17/2018 5:01 pm REASON FOR STUDY: SOB COMPARISON: Chest x-ray dated 05/17/2018. TECHNIQUE: CT scan performed of the chest without intravenous contrast. Images reviewed with lung, soft tissue and bone windows. Reconstructed coronal and sagittal MPR images reviewed. All images st ored on PACS. All CT scanners at this facility use dose modulation, iterative reconstruction, and/or weight based d osing when appropriate to reduce radiation dose to as low as reasonably achievable (ALARA). [facility]: Dose Right [facility]: CareDose [facility]: Dose Right [facility]: Teradose 4D [facility]: [employer] RADIATION DOSE: CT Rad equipment meets quality standard of care and radiation dose reduction techniq ues were employed. CTDIvol: 14.4 mGy. DLP: 509 mGy-cm. mGy. LIMITATIONS: No technical limitations. FINDINGS: LUNGS AND PLEURA: Large bilateral pleural effusions, right greater than left. Ground-glas s opacities scattered throughout both lungs. HILAR AND MEDIASTINAL STRUCTURES: No identified masses or abnormal nodes. No obvious aneurysm. HEART AND VASCULAR STRUCTURES: No aneurysm. No pericardial effusion. UPPER ABDOMEN: No significant findings. Limited exam. THYROID AND OTHER SOFT TISSUES: No masses. No adenopathy. BONES: No significant finding. HARDWARE: Central line. OTHER: No other significant findings. IMPRESSION: LARGE BILATERAL PLEURAL EFFUSIONS, RIGHT GREATER THAN LEFT. DIFFUSE GROUND-GLASS OPACIT IES SCATTERED THROUGHOUT BOTH LUNGS PROBABLY DUE TO PULMONARY EDEMA ALTHOUGH SUPERIMPOSED PNEUMONIA A LSO POSSIBLE. TECHNICAL DOCUMENTATION: JOB ID: [id number] Quality ID # [id number]: Final reports with documentation of one or more dose reduction techniques (e.g., Au tomated exposure control, adjustment of the mA and/or kV according to patient size, use of iterative reconstruction technique) 2010 [employer]- All Rights Reserved Reading location - IP/workstation name: [email or web address]
[2018-05-17] MEDS ORDERED: LIDOCAINE 1% INJ-PF (10 MG/ML) 30 ML SDV ONE (17:15)
[2018-05-17 18:41] LABS: PROTHROMBIN TIME 15.8 SEC (11.4-15.4)
[2018-05-17] MEDS ORDERED: HEPARIN SOD (PORCINE) 1,000 UNIT/ML 10 ML VIAL IV PRN (20:54)
[2018-05-17] MEDS: MONTELUKAST SODIUM 10 MG TABLET PO SCH (21:22)
[2018-05-17 21:40] LABS: FREE T3 1.8 pg/mL (2.77-5.27); FREE T4 (FREE THYROXINE) 2.23 ng/dL (0.78-2.19)
[2018-05-17 21:54] LABS: THYROID STIMULATING HORMONE 0.08 uIU/mL (0.47-4.68)
[2018-05-17] MEDS: DILTIAZEM HCL/D5W 125 MG/125 ML RTUINJ IV PRN (21:57)
[2018-05-17] MEDS: NORMAL SALINE 250 ML with FUROSEMIDE 250 MG IV PRN ×2 (22:23)
--- NOTE | 2018-05-17 22:36 | Progress Note ---
Provider Note Provider Note: CARDIOLOGY PROGRESS NOTE by Dr. Kristen Davis on 05/17/2018. SUBJECTIVE: The patient in respiratory distress, and is on BiPAP at present. Chest x-ray findings suggestive of congestive heart failure. The patient does have orthopnea. But there is no PND. The patient although very drowsy denies any chest pain she does complain of shortness of breath. There is no wheezing. Note that the patient's Eliquis has been discontinued and the patient has been started on heparin. This is in preparation for possible thoracentesis, since the patient is significant bilateral pleural effusions. The patient continues to be in atrial fibrillation. With a ventricular response in the 100s. Earlier her heart rate of earlier her blood pressure went down into the 70s., But with the aid not being clear whether the blood pressure reading is accurate. She will be having a arterial line placed. Due to the patient's heart rate being in the 90s the patient was started on Hugh-Synephrine which had to be dialed up to 120 mcg/min. Discussed the patient's heart rate to go into the 130s. The patient's esmolol has been increased to 125 mcg/min. At present the heart rate is in the 100s. PHYSICAL EXAMINATION: The patient appears to be acutely ill she is well-groomed. She is in mild respiratory distress, and is wearing the BiPAP. Selected Entries 05/17/18 05/17/18 05/17/18 18:00 19:07 20:00 Temperature 99.9 F 99.7 F Temperature Core Core Source Pulse Rate 112 H 108 H Respiratory 15 17 Rate Blood Pressure 109/54 L [Upper Arm] Blood Pressure 72 Mean [Upper Arm ] Blood Pressure Supine Position [Upper Arm] O2 Sat by Pulse 100 99 Oximetry Oxygen Delivery Nasal Cannula Method ( includes room air) Fraction of 45 Inspired Oxygen (FIO2) Oxygen Flow 4 Rate HEAD: Atraumatic, normocephalic. EYES: Pupils equal round and reactive to light, extraocular movements intact, sclera anicteric, conjunctiva are normal. ENT: TMs normal, nares patent, oropharynx clear without exudates. Moist mucous membranes. NECK: Normal range of motion, supple without lymphadenopathy or JVD. Carotids are equal there is no bruits. There is no thyromegaly. There is no accessory muscles of respiration in use. Trachea central LUNGS: There is diminished air entry and prolonged expiration. There is occasional scattered rhonchi. There is no wheezing . There is bilateral absent breath sounds and dullness in both bases. About the area of dullness there is a few dry wet rales of CHF. Also scattered throughout the lung there are scattered dry crackles suggestive of multifocal pneumonia.. On palpation there is no chest wall tenderness. HEART: S1-S2 is heard. S1 is of intensity. There is no S3 gallop. There is no S4 gallop. There is systolic murmur left sternal border and apex without radiation. There is no rub.. ABDOMEN: Soft, nontender, normoactive bowel sounds. There is no hepatosplenic megaly no guarding, no rebound. No masses appreciated. EXTREMITIES: Normal range of motion, no pitting or edema. No clubbing or cyanosis. Femorals are well felt. There is no femoral bruits. Leg pulses are well felt. There is no DVT or cellulitis. There is no calf tenderness NEUROLOGICAL: Cranial nerves II through XII grossly intact. Normal speech, normal gait. The patient is awake alert oriented x3 with no focal deficits. PSYCH: Normal mood, normal affect. The patient judgment and insight are intact SKIN: Warm, Dry, normal turgor, no rashes or lesions noted. There is no petechia or ecchymosis. 05/16/18 05/16/18 05/16/18 05:59 05:59 12:19 WBC RBC Hgb Hct MCV MCH MCHC RDW Plt Count Seg Neutrophils % Lymphocytes % Monocytes % Eosinophils % Basophils % Absolute Neutrophils Absolute Lymphocytes Absolute Monocytes Absolute Eosinophils Absolute Basophils PT INR Sodium Potassium Chloride Carbon Dioxide Anion Gap BUN Creatinine Est GFR (Non-Af Amer) Glucose Calcium Magnesium Creatine Kinase 214 H CK-MB (CK-2) 3.87 Troponin I 0.163 Amiodarone 0.3 L Noramiodarone None Detected 05/16/18 05/17/18 05/17/18 12:19 04:57 04:57 WBC 9.8 RBC 4.25 Hgb 13.2 Hct 39.6 MCV 93 MCH 31.1 MCHC 33.3 RDW 15.0 H Plt Count 119 L Seg Neutrophils % 84.6 H Lymphocytes % 8.4 L Monocytes % 6.0 Eosinophils % 0.8 Basophils % 0.2 Absolute Neutrophils 8.3 H Absolute Lymphocytes 0.8 Absolute Monocytes 0.6 Absolute Eosinophils 0.1 Absolute Basophils 0.0 PT INR Sodium 138.6 Potassium 3.8 Chloride 108 H Carbon Dioxide 26 Anion Gap 5 BUN 48 H Creatinine 1.52 H Est GFR (Non-Af Amer) 34 L Glucose 96 Calcium 8.3 L Magnesium 2.2 Creatine Kinase CK-MB (CK-2) 4.58 H Troponin I Amiodarone Noramiodarone 05/17/18 18:20 WBC RBC Hgb Hct MCV MCH MCHC RDW Plt Count Seg Neutrophils % Lymphocytes % Monocytes % Eosinophils % Basophils % Absolute Neutrophils Absolute Lymphocytes Absolute Monocytes Absolute Eosinophils Absolute Basophils PT 15.8 H INR 1.20 Sodium Potassium Chloride Carbon Dioxide Anion Gap BUN Creatinine Est GFR (Non-Af Amer) Glucose Calcium Magnesium Creatine Kinase CK-MB (CK-2) Troponin I Amiodarone Noramiodarone The patient's chest x-ray shows bilateral pleural effusions, CHF and pneumonia bilaterally. The patient CT of the chest shows moderate bilateral pleural effusions. Congestive heart failure possibly pneumonia. IMPRESSION/RECOMMENDATION: 1. Acute respiratory failure, most likely secondary to congestive heart failure, atrial fibrillation with rapid ventricular response, COPD with exacerbation, and possibly pneumonia. 2. Recurrent atrial fibrillation with rapid ventricular response: Would not use amiodarone especially in view of the patient's abnormal TSH and elevated free T4 levels. We will continue patient on esmolol. Subsequently we will switch the patient to a calcium channel gillian. We will stop the patient's esmolol and switch the patient's to IV Cardizem. We will continue Hugh-Synephrine for blood pressure support.. 3. Hypotension most likely secondary atrial fibrillation with rapid ventricular response, and possible pneumonia/sepsis. We will continue patient on Hugh- Synephrine.. 4. Acute on chronic kidney disease. At present patient's kidney function is stage IV compared to her baseline of stage III. GFR is slightly improved. Nephrology on the case 5. ELEVATED TROPONIN: No evidence of non-ST elevation ID this is secondary to supply demand mismatch due to the patient's atrial fibrillation with rapid ventricular response, borderline hypotension, and in a setting of acute on chronic kidney disease. Note the patient's cardiac catheterization in October 2017 showed nonobstructive coronary artery disease. 6.. COPD: He has acute exacerbation. 7. Congestive heart failure secondary to atrial fibrillation with rapid ventricular response in a patient with LV diastolic dysfunction. At present the patient does not seem to be in heart failure. We will start the patient on a Lasix drip. 8. Possible pneumonia: We will observe the patient clinically. At present patient is afebrile and has no symptoms suggestive of pneumonia. 9. Non-Hodgkin's lymphoma:? Cured. Patient later would be recommended CVA oncologist as an outpatient. 10. Iatrogenic hyperthyroidism. Would recommend holding the patient's thyroid replacement. We will recheck the patient's thyroid function tests. Medications reviewed. Medications adjusted. Management plan discussed with the attending physician on the case. Discussed with the patient also. Medical decision making is of high complexity. 50 minutes spent on this patient more than 50% of time spent in direct patient care. We will follow with you
[2018-05-17] MEDS: HEPARIN SODIUM,PORCINE/D5W 25,000 UNIT/250 ML RTUINJ IV PRN (23:00)
[2018-05-18] MEDS: IPRATROPIUM BROMIDE 0.02% NEB 0.5 MG/2.5 ML AMPUL NEB SCH ×3 (00:25→16:13)
[2018-05-18] MEDS: LEVALBUTEROL HCL NEB 1.25 MG/3 ML AMPUL NEB SCH ×3 (00:26→16:13)
[2018-05-18] MEDS: CEFTRIAXONE 1 GM/D5W RTU 1 GM/50 ML RTUPB IV SCH ×2 (00:51→17:59)
[2018-05-18 05:05] LABS: ABSOLUTE LYMPHOCYTES (AUTO) 0.6 10^3/uL (0.5-4.7); ABSOLUTE MONOCYTES (AUTO) 0.5 10^3/uL (0.1-1.4); ABSOLUTE NEUT (AUTO) 9.8 10^3/uL (1.7-8.2); BASOPHILS % (AUTO) 0.4 % (0-2); EOSINOPHILS % (AUTO) 0.1 % (0-6); HEMATOCRIT 43.2 % (36.0-47.0); HEMOGLOBIN 14.7 g/dL (12.0-15.5); LYMPHOCYTES % (AUTO) 5.2 % (13-45); MEAN CORPUSCULAR HEMOGLOBIN 31.5 pg (27.0-33.4); MEAN CORPUSCULAR VOLUME 93 fl (80-97); MONOCYTES % (AUTO) 4.6 % (3-13); PLATELET COUNT 138 10^3/uL (150-450); RED BLOOD COUNT 4.66 10^6/uL (3.72-5.28); RED CELL DISTRIBUTION WIDTH 14.7 % (11.5-14.0); SEGMENTED NEUTROPHILS % (AUTO) 89.7 % (42-78); TOTAL CELLS COUNTED % (AUTO) 100 %; WHITE BLOOD COUNT 10.9 10^3/uL (4.0-10.5)
[2018-05-18 05:27] LABS: ANION GAP 5 (5-19); BLOOD UREA NITROGEN 48 mg/dL (7-20); CALCIUM 8.4 mg/dL (8.4-10.2); GLUCOSE 106 mg/dL (75-110); POTASSIUM 3.6 mmol/L (3.6-5.0)
[2018-05-18 05:32] LABS: CARBON DIOXIDE 26 mmol/L (22-30); CHLORIDE 107 mmol/L (98-107); SODIUM 138.4 mmol/L (137-145)
--- NOTE | 2018-05-18 06:52 | Operative Report ---
Nonrecallable Operative Report DATE OF SURGERY: 05/17/18 PREOPERATIVE DIAGNOSIS: HYPOTENSION POSTOPERATIVE DIAGNOSIS: HYPOTENSION OPERATION: RIGHT FEMORAL ARTERIAL LINE PLACMENT SURGEON: LISSETTE FREED ANESTHESIA: Local TISSUE REMOVED OR ALTERED: NONE COMPLICATIONS: NONE ESTIMATED BLOOD LOSS: 5CC. PROCEDURE: Patient was placed in the Trendelenburg The right groin was prepped and draped in usual sterile fashion. We anesthetized the right groin over the femoral pulse with 1% lidocaine plain. Using the arterial line kit a 18-gauge needle was used to puncture the femoral artery. This flow return to the needle the wire supplying the kit was passed through the needle into the artery using Seldinger technique. Once the wire was placed into the artery and the throat supplied with the kit was an 18-gauge long catheter was placed over the wire into the artery. Wire was removed and the catheter was affixed to the pressure transducer and then to the skin with 3-0 nylon suture. Good waveform resulted. This completed the procedure Estimated blood loss was less than 5 cc no complications
[2018-05-18] MEDS: BUDESONIDE NEB 0.5 MG/2 ML AMPUL NEB SCH ×2 (07:55→20:10)
[2018-05-18] MEDS: DEXTROSE 5%-WATER 250 ML with PHENYLEPHRINE HCL 40 MG IV PRN ×2 (08:39)
[2018-05-18 09:40] LABS: ARTERIAL BLOOD BASE EXCESS -1.3 mmol/L; ARTERIAL BLOOD H2CO3 0.76 mmol/L (1.05-1.35); ARTERIAL BLOOD HCO3 20.1 mmol/L (20-24); ARTERIAL BLOOD O2 SATURATION 97.9 % (94-98); ARTERIAL BLOOD PCO2 25.4 mmHg (35-45); ARTERIAL BLOOD PH 7.52 (7.35-7.45); ARTERIAL BLOOD PO2 93.5 mmHg (80-100); ARTERIAL BLOOD TOTAL CO2 20.9 mmol/L (21-25)
[2018-05-18 09:42] LABS: ARTERIAL BLOOD FIO2 4L
--- NOTE | 2018-05-18 09:47 | PDOC PROGRESS REPORT ---
Subjective Progress Note for:: 05/18/18 Subjective:: Patient had an episode of hypotension yesterday after she was given the 20 mg of Lasix IV. The esmolol was discontinued. She is now on Cardizem drip. Is also on low-dose Lasix drip. She is producing a good amount of urine output improved from previous days. She made about 1375 mL for the last 24 hours. She tells me that she feels better today and denies any other complaints. Her blood pressure is still on the low side and currently she is on Hugh-Synephrine drip since yesterday. Reason For Visit: ATRIAL FIBRILLATION WITH RAPID VENTRICULAR Physical Exam Vital Signs: Temp Pulse Resp BP Pulse Ox 97.9 F 82 20 95/72 L 100 05/18/18 08:00 05/18/18 08:00 05/18/18 08:00 05/18/18 08:00 05/18/18 08:00 Intake & Output 05/17/18 05/18/18 05/19/18 06:59 06:59 06:59 Intake Total 1609 1077 270 Output Total 720 1375 200 Balance 889 -298 70 Weight 82.8 kg 83.1 kg Exam: General appearance: PRESENT: no acute distress, cooperative, well-developed, well-nourished Head exam: PRESENT: atraumatic, normocephalic Eye exam: PRESENT: conjunctiva pale, PERRLA. ABSENT: scleral icterus Neck exam: ABSENT: JVD Respiratory exam: PRESENT: Diminished breath sounds. Minimal and decrease crackles ABSENT: Rhonchi, unlabored, wheezes Cardiovascular exam: PRESENT: Irregularly irregular rate rhythm -+S1, +S2. Grade 2/6 systolic murmur GI/Abdominal exam: PRESENT: normal bowel sounds, soft. ABSENT: guarding, mass, tenderness Extremities exam: Grade 1 bilateral lower extremity pitting edema Neurological exam: PRESENT: alert, awake, oriented to person, place and time. Skin exam: PRESENT: dry, warm, appears to be pale Results Laboratory Results: 05/18/18 04:54 05/18/18 04:54 05/17/18 05/18/18 05/18/18 20:59 04:54 04:54 WBC 10.9 H RBC 4.66 Hgb 14.7 Hct 43.2 MCV 93 MCH 31.5 MCHC 34.0 RDW 14.7 H Plt Count 138 L Seg Neutrophils % 89.7 H Lymphocytes % 5.2 L Monocytes % 4.6 Eosinophils % 0.1 Basophils % 0.4 Absolute Neutrophils 9.8 H Absolute Lymphocytes 0.6 Absolute Monocytes 0.5 Absolute Eosinophils 0.0 Absolute Basophils 0.0 Sodium 138.4 Potassium 3.6 Chloride 107 Carbon Dioxide 26 Anion Gap 5 BUN 48 H Creatinine 1.44 H Est GFR ( Amer) 43 L Est GFR (Non-Af Amer) 36 L Glucose 106 Calcium 8.4 Magnesium 2.1 TSH 0.08 L Free T4 2.23 H Free T3 pg/mL 1.80 L 05/15/18 05/15/18 05/15/18 19:55 23:56 23:56 Creatine Kinase 266 H CK-MB (CK-2) 4.43 Troponin I 0.150 0.171 05/16/18 05/16/18 05/16/18 05:59 05:59 12:19 Creatine Kinase 208 H 214 H CK-MB (CK-2) 3.87 Troponin I 0.163 05/16/18 12:19 Creatine Kinase CK-MB (CK-2) 4.58 H Troponin I 0.134 Impressions: Chest X-Ray 05/17/18 08:07 IMPRESSION: Bilateral airspace disease consistent with edema or pneumonia. No significant change. Chest CT 05/17/18 16:28 IMPRESSION: LARGE BILATERAL PLEURAL EFFUSIONS, RIGHT GREATER THAN LEFT. DIFFUSE GROUND-GLASS OPACITIES SCATTERED THROUGHOUT BOTH LUNGS PROBABLY DUE TO PULMONARY EDEMA ALTHOUGH SUPERIMPOSED PNEUMONIA ALSO POSSIBLE. Assessment & Plan - Diagnosis (1) Acute kidney injury Is this a current diagnosis for this admission?: Yes Plan: Due to prerenal factors with mild ATN. Urine output has improved significantly . Kidney function continues to improve slowly. Patient's chest x-ray she still shows possible pulmonary congestion versus pneumonia and clinically she has edema. Patient on low-dose Lasix drip per Dr. Davis. (2) Atrial fibrillation with RVR Is this a current diagnosis for this admission?: Yes Plan: Now with controlled ventricular response and Cardizem drip. Cardiology following. (3) Iatrogenic hyperthyroidism Is this a current diagnosis for this admission?: Yes Plan: Possibly due to amiodarone toxicity. Thyroid function panel improved. (4) Acute on chronic diastolic heart failure Is this a current diagnosis for this admission?: Yes Plan: On Lasix drip. Radiographically shows pulmonary edema and congestion. (5) Elevated troponin Is this a current diagnosis for this admission?: Yes - Time Time with patient: 15-25 minutes
[2018-05-18 10:29] LABS: APPEARANCE,URINE SLIGHTLY-CLOUDY; BILIRUBIN,URINE NEGATIVE (NEGATIVE); COLOR,URINE YELLOW; GLUCOSE, URINE NEGATIVE (NEGATIVE); KETONES,URINE NEGATIVE (NEGATIVE); LEUKOCYTE ESTERASE,URINE NEGATIVE (NEGATIVE); NITRITE,URINE NEGATIVE (NEGATIVE); PROTEIN,URINE NEGATIVE (NEGATIVE); UROBILINOGEN,URINE NEGATIVE mg/dL (<2.0)
[2018-05-18 13:23] LABS: ARTERIAL BLOOD BASE EXCESS -3.2 mmol/L; ARTERIAL BLOOD H2CO3 0.74 mmol/L (1.05-1.35); ARTERIAL BLOOD HCO3 18.6 mmol/L (20-24); ARTERIAL BLOOD O2 SATURATION 98.3 % (94-98); ARTERIAL BLOOD PCO2 24.5 mmHg (35-45); ARTERIAL BLOOD PO2 103.8 mmHg (80-100); ARTERIAL BLOOD TOTAL CO2 19.4 mmol/L (21-25)
[2018-05-18 13:25] LABS: ARTERIAL BLOOD FIO2 4L
--- NOTE | 2018-05-18 14:11 | RADIOLOGY REPORT (SQ) ---
EXAM DESCRIPTION: CHEST SINGLE VIEW COMPLETED DATE/TIME: 05/18/2018 2:03 pm REASON FOR STUDY: S/P RT THORACENTESIS COMPARISON: 05/17/2018. EXAM PARAMETERS: NUMBER OF VIEWS: One view. TECHNIQUE: Single frontal radiographic view of the chest acquired. RADIATION DOSE: NA LIMITATIONS: None. FINDINGS: LUNGS AND PLEURA: Decrease in the right pleural effusion. No pneumothorax following thora centesis. Continued airspace disease in the left lung. MEDIASTINUM AND HILAR STRUCTURES: No masses. Contour normal. HEART AND VASCULAR STRUCTURES: Cardiomegaly and vascular congestion. BONES: No acute findings. HARDWARE: Central line. OTHER: No other significant finding. IMPRESSION: NO PNEUMOTHORAX FOLLOWING RIGHT-SIDED THORACENTESIS. OTHERWISE NO CHANGE. TECHNICAL DOCUMENTATION: JOB ID: [id number] [employer]- All Rights Reserved Reading location - IP/workstation name: [email or web address]
--- NOTE | 2018-05-18 14:34 | RADIOLOGY REPORT (SQ) ---
EXAM DESCRIPTION: U/S THORACENTESIS WITH IMAGING COMPLETED DATE/TIME: 05/18/2018 2:05 pm REASON FOR STUDY: significant bilateral pleural effusions COMPARISON: None. LIMITATIONS: None. PROCEDURE: Procedure, risks, benefit, and alternative explained to patient who then gave written con sent. The posterior right chest wall was marked using ultrasound guidance. A time-out was called fo r correct marking verification. Chest prepped and draped using sterile technique. Local anesthesia a chieved using 10 ml of 1% lidocaine injection. A 6fr Safe-T- Centesis set was introduced into the [facility] pleural space. Fluid was aspirated. The catheter was removed and the entry site was covered wit h sterile bandage. No immediate complications noted. Images acquired during the procedure were stored on PACS. FINDINGS: ENTRY SITE: posterior right chest. FLUID VOLUME: 850 mL. FLUID ANALYSIS: Clear xena colored fluid. OTHER: Fluid sent to the lab for testing. IMPRESSION: SUCCESSFUL THORACENTESIS USING ULTRASOUND GUIDANCE. COMMENT: Patient medication list reviewed: Yes- Quality ID# [id number]:Eligible professional attests to doc umenting in the medical record they obtained, updated, or reviewed the patient's current medications. TECHNICAL DOCUMENTATION: JOB ID: [id number] [employer]- All Rights Reserved Reading location - IP/workstation name: [email or web address]
[2018-05-18 14:50] LABS: FLUID TYPE PLEURAL
[2018-05-18 14:51] LABS: FLUID APPEARANCE CLEAR; FLUID COLOR YELLOW; FLUID VISCOSITY LIQUID
[2018-05-18 15:06] LABS: TOTAL PROTEIN 4.5 g/dL (6.3-8.2)
[2018-05-18] MEDS: ESCITALOPRAM OXALATE 10 MG TABLET PO SCH (15:17)
[2018-05-18] MEDS: FAMOTIDINE 20 MG TABLET PO SCH ×2 (15:17→21:20)
[2018-05-18] MEDS: ASPIRIN 81 MG TABLET, CHEWABLE PO SCH (15:17)
[2018-05-18] MEDS: MAGNESIUM OXIDE 400 MG TABLET PO SCH ×2 (15:17→17:59)
[2018-05-18] MEDS: DOCUSATE SODIUM 100 MG CAPSULE PO SCH ×2 (15:17→18:00)
[2018-05-18] MEDS: BUSPIRONE HCL 10 MG TABLET PO SCH ×2 (15:17→18:00)
--- NOTE | 2018-05-18 15:35 | PDOC PROGRESS REPORT ---
Subjective Progress Note for:: 05/18/18 Subjective:: This is a 73 year old female with a PMH of paroxysmal Afib, history of amiodarone toxicity, hypothyroidism, COPD on 2L of home O2, CAD and diastolic heart failure who initially had light headedness and was found to be in Afib with RVR by EMs (HR in the 180s). She was started on esmolol drip and was admitted to the ICU. 05/17/18: This morning, patient appeared comfortable but later had SOB and was breathing in the 30s. She was given a dose of IV Lasix and her blood pressure went down to the 50 systolic. Esmolol drip was initially held. Upon re- evaluation, she denies chest pain or SOB. She was started on neosynephrine with prompt improvement of her blood pressure and esmolol was later also resumed. She did have fine crackles bilaterally. Chest CT showed significant bilateral pleural effusions and ground glass opacities. 05/18/18: No acute event overnight. Patient just had thoracentesis and had 1L of orange colored fluid drained from the right pleural cavity. She says her breathing improved a lot after the thoracentesis. Currently saturating well on 3L via NC. Denies chest pain. She has been weaned off neosynephrine. Currently on cardizem and lasix drips. Reason For Visit: ATRIAL FIBRILLATION WITH RAPID VENTRICULAR Physical Exam Vital Signs: Temp Pulse Resp BP Pulse Ox 97.5 F 83 18 105/52 L 100 05/18/18 14:00 05/18/18 14:00 05/18/18 14:04 05/18/18 14:04 05/18/18 14:00 Intake & Output 05/17/18 05/18/18 05/19/18 06:59 06:59 06:59 Intake Total 1609 1077 295 Output Total 720 1375 800 Balance 589 -557 -651 Weight 182 lb 8.684 oz 183 lb 3.266 oz General appearance: PRESENT: no acute distress, well-developed, well-nourished Head exam: PRESENT: atraumatic, normocephalic Eye exam: PRESENT: conjunctiva pink, EOMI, PERRLA. ABSENT: scleral icterus Ear exam: PRESENT: normal external ear exam Mouth exam: PRESENT: moist, tongue midline Neck exam: ABSENT: carotid bruit, JVD, lymphadenopathy, thyromegaly Respiratory exam: PRESENT: decreased breath sounds - slightly dec BS on the bases, improved from yesterday and after thoracentesis, rhonchi. ABSENT: rales, wheezes Cardiovascular exam: PRESENT: irregular rhythm, tachycardia Pulses: PRESENT: normal dorsalis pedis pul GI/Abdominal exam: PRESENT: normal bowel sounds, soft. ABSENT: distended, guarding, mass, organolmegaly, rebound, tenderness Rectal exam: PRESENT: deferred Neurological exam: PRESENT: awake, oriented to person, oriented to place, oriented to situation, CN II-XII grossly intact. ABSENT: oriented to time, motor sensory deficit Results Laboratory Results: 05/18/18 04:54 05/18/18 04:54 05/17/18 05/18/18 05/18/18 20:59 04:54 04:54 WBC 10.9 H RBC 4.66 Hgb 14.7 Hct 43.2 MCV 93 MCH 31.5 MCHC 34.0 RDW 14.7 H Plt Count 138 L Seg Neutrophils % 89.7 H Lymphocytes % 5.2 L Monocytes % 4.6 Eosinophils % 0.1 Basophils % 0.4 Absolute Neutrophils 9.8 H Absolute Lymphocytes 0.6 Absolute Monocytes 0.5 Absolute Eosinophils 0.0 Absolute Basophils 0.0 Carbonic Acid HCO3/H2CO3 Ratio ABG pH ABG pCO2 ABG pO2 ABG HCO3 ABG O2 Saturation ABG Base Excess FiO2 Sodium 138.4 Potassium 3.6 Chloride 107 Carbon Dioxide 26 Anion Gap 5 BUN 48 H Creatinine 1.44 H Est GFR ( Amer) 43 L Est GFR (Non-Af Amer) 36 L Glucose 106 Calcium 8.4 Magnesium 2.1 Total Protein TSH 0.08 L Free T4 2.23 H Free T3 pg/mL 1.80 L Urine Color Urine Appearance Urine pH Ur Specific [place] Urine Protein Urine Glucose (UA) Urine Ketones Urine Blood Urine Nitrite Ur Leukocyte Esterase Urine WBC (Auto) Urine RBC (Auto) Fluid Type Fluid Source Fluid Color Fluid Appearance Fluid Viscosity Fluid WBC Fluid RBC 05/18/18 05/18/18 05/18/18 09:25 09:55 13:04 WBC RBC Hgb Hct MCV MCH MCHC RDW Plt Count Seg Neutrophils % Lymphocytes % Monocytes % Eosinophils % Basophils % Absolute Neutrophils Absolute Lymphocytes Absolute Monocytes Absolute Eosinophils Absolute Basophils Carbonic Acid 0.76 L 0.74 L HCO3/H2CO3 Ratio 26:1 25:1 ABG pH 7.52 H 7.50 H ABG pCO2 25.4 L 24.5 L ABG pO2 93.5 103.8 H ABG HCO3 20.1 18.6 L ABG O2 Saturation 97.9 98.3 H ABG Base Excess -1.3 -3.2 FiO2 4L 4L Sodium Potassium Chloride Carbon Dioxide Anion Gap BUN Creatinine Est GFR ( Amer) Est GFR (Non-Af Amer) Glucose Calcium Magnesium Total Protein TSH Free T4 Free T3 pg/mL Urine Color YELLOW Urine Appearance SLIGHTLY-CLOUDY Urine pH 5.0 Ur Specific [place] 1.010 Urine Protein NEGATIVE Urine Glucose (UA) NEGATIVE Urine Ketones NEGATIVE Urine Blood SMALL H Urine Nitrite NEGATIVE Ur Leukocyte Esterase NEGATIVE Urine WBC (Auto) 4 Urine RBC (Auto) 3 Fluid Type Fluid Source Fluid Color Fluid Appearance Fluid Viscosity Fluid WBC Fluid RBC 05/18/18 05/18/18 05/18/18 13:35 13:35 14:28 WBC RBC Hgb Hct MCV MCH MCHC RDW Plt Count Seg Neutrophils % Lymphocytes % Monocytes % Eosinophils % Basophils % Absolute Neutrophils Absolute Lymphocytes Absolute Monocytes Absolute Eosinophils Absolute Basophils Carbonic Acid HCO3/H2CO3 Ratio ABG pH ABG pCO2 ABG pO2 ABG HCO3 ABG O2 Saturation ABG Base Excess FiO2 Sodium Potassium Chloride Carbon Dioxide Anion Gap BUN Creatinine Est GFR ( Amer) Est GFR (Non-Af Amer) Glucose Calcium Magnesium Total Protein Cancelled 4.5 L TSH Free T4 Free T3 pg/mL Urine Color Urine Appearance Urine pH Ur Specific [place] Urine Protein Urine Glucose (UA) Urine Ketones Urine Blood Urine Nitrite Ur Leukocyte Esterase Urine WBC (Auto) Urine RBC (Auto) Fluid Type PLEURAL Fluid Source Fluid Color YELLOW Fluid Appearance CLEAR Fluid Viscosity LIQUID Fluid WBC 397 Fluid RBC 5680 05/15/18 05/15/18 05/15/18 19:55 23:56 23:56 Creatine Kinase 266 H CK-MB (CK-2) 4.43 Troponin I 0.150 0.171 05/16/18 05/16/18 05/16/18 05:59 05:59 12:19 Creatine Kinase 208 H 214 H CK-MB (CK-2) 3.87 Troponin I 0.163 05/16/18 12:19 Creatine Kinase CK-MB (CK-2) 4.58 H Troponin I 0.134 Impressions: Chest CT 05/17/18 16:28 IMPRESSION: LARGE BILATERAL PLEURAL EFFUSIONS, RIGHT GREATER THAN LEFT. DIFFUSE GROUND-GLASS OPACITIES SCATTERED THROUGHOUT BOTH LUNGS PROBABLY DUE TO PULMONARY EDEMA ALTHOUGH SUPERIMPOSED PNEUMONIA ALSO POSSIBLE. Thoracentesis Ultrasound 05/17/18 17:59 IMPRESSION: SUCCESSFUL THORACENTESIS USING ULTRASOUND GUIDANCE. Chest X-Ray 05/18/18 00:00 IMPRESSION: NO PNEUMOTHORAX FOLLOWING RIGHT-SIDED THORACENTESIS. OTHERWISE NO CHANGE. Assessment & Plan - Diagnosis (1) Atrial fibrillation with RVR Is this a current diagnosis for this admission?: Yes Plan: On cardizem drip. Eliquis on hold. Currently on heparin drip for possible left sided thoracentesis tomorrow. (2) Hypotension Is this a current diagnosis for this admission?: Yes Plan: Resolved. Off arturo drip. (3) Acute kidney injury Is this a current diagnosis for this admission?: Yes Plan: Continue to improve. Creatinine has trended down to 1.4. - Time Time Spent with patient: 25-34 minutes
--- NOTE | 2018-05-18 16:37 | RADIOLOGY REPORT (SQ) ---
EXAM DESCRIPTION: CHEST SINGLE VIEW COMPLETED DATE/TIME: 05/18/2018 4:03 pm REASON FOR STUDY: 2 HOURS S/P RT THORACENTESIS COMPARISON: 05/18/2018 and 05/17/2018. EXAM PARAMETERS: NUMBER OF VIEWS: One view. TECHNIQUE: Single frontal radiographic view of the chest acquired. RADIATION DOSE: NA LIMITATIONS: None. FINDINGS: LUNGS AND PLEURA: No pneumothorax. Patchy left basilar density with small left pleural ef fusion unchanged. MEDIASTINUM AND HILAR STRUCTURES: No masses. Contour normal. HEART AND VASCULAR STRUCTURES: Cardiomegaly. Vascular congestion. BONES: No acute findings. HARDWARE: Central line. OTHER: No other significant finding. IMPRESSION: STABLE APPEARANCE. NO SIGNIFICANT PNEUMOTHORAX FOLLOWING THORACENTESIS. TECHNICAL DOCUMENTATION: JOB ID: [id number] [employer]- All Rights Reserved Reading location - IP/workstation name: [email or web address]
[2018-05-18] MEDS: DILTIAZEM HCL/D5W 125 MG/125 ML RTUINJ IV PRN (17:13)
--- NOTE | 2018-05-18 18:53 | PDOC CONSULTATION ---
Consultation Consult Date: 05/18/18 Attending physician:: MARIZA NORTON Consult reason:: History of lymphoma, multiple medical issues History of Present Illness Admission Date/PCP: 05/15/18 22:49 Patient complains of: Shortness of breath, weakness History of Present Illness: RADHA LAGUERRE is a 73 year old female with multiple medical problems including COPD, cardiac disease, presents with A. fib and RVR, unfortunately also has had respiratory distress recently and had CT of the chest indicating bilateral pleural effusion, had thoracentesis done, has been on pressors and currently in the ICU under close monitoring. 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 Today she does not remember too much about the lymphoma diagnosis, and seems lethargic, but she remembers that she was diagnosed with lymphoma around 3 years ago, was treated by Dr. Taylor in [place]. She remembers a diagnosis of non-Hodgkin's lymphoma, she remembers going through chemotherapy. She notes that it has been sometime since she has had restaging imaging. Unfortunately, she does not remember much more than that. Past Medical History Cardiac Medical History: Reports: Atrial Fibrillation, Congestive Heart Failure - Diastolic, Hypertension, Heart Murmur Pulmonary Medical History: Reports: Chronic Obstructive Pulmonary Disease (COPD) Endocrine Medical History: Reports: Hypothyroidism Denies: Diabetes Mellitus Type 1, Diabetes Mellitus Type 2 Renal/ Medical History: Denies: Chronic Kidney Disease, Nephrolithiasis Malignancy Medical History: Reports: Lymphoma GI Medical History: Reports: Gastroesophageal Reflux Disease Denies: Cirrhosis, Hepatitis Musculoskeltal Medical History: Denies: Fibromyalgia, Gout Skin Medical History: Denies: Eczema, Psoriasis Psychiatric Medical History: Reports: Depression Denies: Alcohol Dependency, Substance Abuse, Tobacco Dependency Traumatic Medical History: Reports: None Hematology: Denies: Anemia, Bleeding Tendencies Infectious Medical History: Reports: None Past Surgical History Past Surgical History: Reports: None Social History Information Source: Patient Lives with: Family - Her daughter Smoking Status: Never Smoker Frequency of Alcohol Use: Occasional Hx Recreational Drug Use: Yes Drugs: Marijuana Hx Prescription Drug Abuse: No - Advance Directive Resuscitation Status: Full Code Family History Family History: COPD Parental Family History Reviewed: Yes Children Family History Reviewed: Yes Sibling(s) Family History Reviewed.: Yes Medication/Allergy Home Medications: Atorvastatin Calcium [Lipitor 80 mg Tablet] 80 mg PO QHS 05/16/18 Buspirone HCl [Buspar 15 mg Tablet] 15 mg PO BID 05/16/18 Docusate Sodium [Colace 100 mg Capsule] 100 mg PO BID 05/16/18 Duloxetine HCl [Cymbalta] 30 mg PO DAILY 05/16/18 Escitalopram Oxalate [Lexapro] 20 mg PO DAILY 05/16/18 Fluticasone/Vilanterol [Breo Ellipta 100-25 Mcg INH] 1 puff IH DAILY 05/16/18 Furosemide [Lasix 20 mg Tablet] 20 mg PO DAILY 05/16/18 Levothyroxine Sodium 125 mcg PO Q6AM 05/16/18 Melatonin [Melatonin 3 mg Tablet] 6 mg PO QHS 05/16/18 Montelukast Sodium [Singulair 10 mg Tablet] 10 mg PO QPM 05/16/18 Ondansetron HCl [Zofran 4 mg Tablet] 4 mg PO QIDP PRN 05/16/18 Oxycodone Myristate [Xtampza ER] 13.5 mg PO Q12 05/16/18 Pantoprazole Sodium [Protonix] 40 mg PO QAM 05/16/18 Sennosides [Laxative] 50 mg PO DAILYP PRN 05/16/18 Suvorexant [Belsomra] 5 mg PO QHS 05/16/18 Trazodone HCl [Desyrel 50 mg Tablet] 50 mg PO QHS 05/16/18 Vitafusion Probiotic 2 tab PO DAILY 05/16/18 Vitafusion [employer] 2 tab PO DAILY 05/16/18 Allergies/Adverse Reactions: codeine [Codeine] Allergy (Verified 09/11/17 01:39) haloperidol [From Haldol] Allergy (Verified 09/29/17 04:08) Change in behavior haloperidol lactate [From Haldol] Allergy (Verified 09/29/17 04:09) Change in behavior Sulfa (Sulfonamide Antibiotics) Allergy (Verified 09/29/17 04:08) rash; itching Beta-Blockers (Beta-Adrenergic Bloc Adverse Reaction (Verified 09/29/17 04:08) Bradycardia zolpidem tartrate [From Ambien] Adverse Reaction (Verified 09/29/17 04:08) sleep walk Review of Systems Constitutional: PRESENT: anorexia, fatigue Cardiovascular: PRESENT: dyspnea on exertion, orthropnea Gastrointestinal: PRESENT: as per HPI Neurological: ABSENT: abnormal gait, abnormal speech, confusion, dizziness, focal weakness, syncope Physical Exam Vital Signs: Temp Pulse Resp BP Pulse Ox 98.1 F 86 17 95/55 L 100 05/18/18 18:00 05/18/18 18:00 05/18/18 18:00 05/18/18 18:00 05/18/18 18:00 Intake & Output 05/17/18 05/18/18 05/19/18 06:59 06:59 06:59 Intake Total 1609 1127 487 Output Total 720 1375 1850 Balance 410 -910 -1023 Weight 82.8 kg 83.1 kg General appearance: PRESENT: mild distress Head exam: PRESENT: atraumatic Mouth exam: PRESENT: dry mucosa Respiratory exam: PRESENT: accessory muscle use, crackles, decreased breath sounds Cardiovascular exam: PRESENT: irregular rhythm GI/Abdominal exam: PRESENT: normal bowel sounds, soft. ABSENT: distended, guarding, mass, organolmegaly, rebound, tenderness Rectal exam: PRESENT: deferred Neurological exam: PRESENT: awake, other - Lethargic Skin exam: PRESENT: dry Results Laboratory Results: 05/18/18 04:54 05/18/18 04:54 05/17/18 05/18/18 05/18/18 20:59 04:54 04:54 WBC 10.9 H RBC 4.66 Hgb 14.7 Hct 43.2 MCV 93 MCH 31.5 MCHC 34.0 RDW 14.7 H Plt Count 138 L Seg Neutrophils % 89.7 H Lymphocytes % 5.2 L Monocytes % 4.6 Eosinophils % 0.1 Basophils % 0.4 Absolute Neutrophils 9.8 H Absolute Lymphocytes 0.6 Absolute Monocytes 0.5 Absolute Eosinophils 0.0 Absolute Basophils 0.0 Carbonic Acid HCO3/H2CO3 Ratio ABG pH ABG pCO2 ABG pO2 ABG HCO3 ABG O2 Saturation ABG Base Excess FiO2 Sodium 138.4 Potassium 3.6 Chloride 107 Carbon Dioxide 26 Anion Gap 5 BUN 48 H Creatinine 1.44 H Est GFR ( Amer) 43 L Est GFR (Non-Af Amer) 36 L Glucose 106 Calcium 8.4 Magnesium 2.1 Total Protein TSH 0.08 L Free T4 2.23 H Free T3 pg/mL 1.80 L Urine Color Urine Appearance Urine pH Ur Specific [place] Urine Protein Urine Glucose (UA) Urine Ketones Urine Blood Urine Nitrite Ur Leukocyte Esterase Urine WBC (Auto) Urine RBC (Auto) Fluid Type Fluid Source Fluid Color Fluid Appearance Fluid Viscosity Fluid WBC Fluid RBC 05/18/18 05/18/18 05/18/18 09:25 09:55 13:04 WBC RBC Hgb Hct MCV MCH MCHC RDW Plt Count Seg Neutrophils % Lymphocytes % Monocytes % Eosinophils % Basophils % Absolute Neutrophils Absolute Lymphocytes Absolute Monocytes Absolute Eosinophils Absolute Basophils Carbonic Acid 0.76 L 0.74 L HCO3/H2CO3 Ratio 26:1 25:1 ABG pH 7.52 H 7.50 H ABG pCO2 25.4 L 24.5 L ABG pO2 93.5 103.8 H ABG HCO3 20.1 18.6 L ABG O2 Saturation 97.9 98.3 H ABG Base Excess -1.3 -3.2 FiO2 4L 4L Sodium Potassium Chloride Carbon Dioxide Anion Gap BUN Creatinine Est GFR ( Amer) Est GFR (Non-Af Amer) Glucose Calcium Magnesium Total Protein TSH Free T4 Free T3 pg/mL Urine Color YELLOW Urine Appearance SLIGHTLY-CLOUDY Urine pH 5.0 Ur Specific [place] 1.010 Urine Protein NEGATIVE Urine Glucose (UA) NEGATIVE Urine Ketones NEGATIVE Urine Blood SMALL H Urine Nitrite NEGATIVE Ur Leukocyte Esterase NEGATIVE Urine WBC (Auto) 4 Urine RBC (Auto) 3 Fluid Type Fluid Source Fluid Color Fluid Appearance Fluid Viscosity Fluid WBC Fluid RBC 05/18/18 05/18/18 05/18/18 13:35 13:35 14:28 WBC RBC Hgb Hct MCV MCH MCHC RDW Plt Count Seg Neutrophils % Lymphocytes % Monocytes % Eosinophils % Basophils % Absolute Neutrophils Absolute Lymphocytes Absolute Monocytes Absolute Eosinophils Absolute Basophils Carbonic Acid HCO3/H2CO3 Ratio ABG pH ABG pCO2 ABG pO2 ABG HCO3 ABG O2 Saturation ABG Base Excess FiO2 Sodium Potassium Chloride Carbon Dioxide Anion Gap BUN Creatinine Est GFR ( Amer) Est GFR (Non-Af Amer) Glucose Calcium Magnesium Total Protein Cancelled 4.5 L TSH Free T4 Free T3 pg/mL Urine Color Urine Appearance Urine pH Ur Specific [place] Urine Protein Urine Glucose (UA) Urine Ketones Urine Blood Urine Nitrite Ur Leukocyte Esterase Urine WBC (Auto) Urine RBC (Auto) Fluid Type PLEURAL Fluid Source Fluid Color YELLOW Fluid Appearance CLEAR Fluid Viscosity LIQUID Fluid WBC 397 Fluid RBC 5680 01/13/19 01/13/19 01/13/19 19:55 23:56 23:56 Creatine Kinase 266 H CK-MB (CK-2) 4.43 Troponin I 0.150 0.171 05/16/18 05/16/18 05/16/18 05:59 05:59 12:19 Creatine Kinase 208 H 214 H CK-MB (CK-2) 3.87 Troponin I 0.163 05/16/18 12:19 Creatine Kinase CK-MB (CK-2) 4.58 H Troponin I 0.134 Impressions: Chest CT 05/17/18 16:28 IMPRESSION: LARGE BILATERAL PLEURAL EFFUSIONS, RIGHT GREATER THAN LEFT. DIFFUSE GROUND-GLASS OPACITIES SCATTERED THROUGHOUT BOTH LUNGS PROBABLY DUE TO PULMONARY EDEMA ALTHOUGH SUPERIMPOSED PNEUMONIA ALSO POSSIBLE. Thoracentesis Ultrasound 05/17/18 17:59 IMPRESSION: SUCCESSFUL THORACENTESIS USING ULTRASOUND GUIDANCE. Chest X-Ray 05/18/18 00:00 IMPRESSION: STABLE APPEARANCE. NO SIGNIFICANT PNEUMOTHORAX FOLLOWING THORACENTESIS. Assessment & Plan - Diagnosis (1) History of lymphoma Is this a current diagnosis for this admission?: Yes Plan: We will need to obtain more records from her oncologist in [place] but we will need to wait until patient is with better mental status to be able to get exactly where she had treatment. This seems to be more of a cardiac related/heart failure related effusion issue, I will see if there is any pleural fluid left so cytology could be sent as well. Will follow. - Time Time Spent: Greater than 70 Minutes - Inpatient Certification Based on my medical assessment, after consideration of the patient's comorbidities, presenting symptoms, or acuity I expect that the services needed warrant INPATIENT care.: Yes I certify that my determination is in accordance with my understanding of Medicare's requirements for reasonable and necessary INPATIENT services [42 CFR 412.3e].: Yes Medical Necessity: Need For Continuous Telemetry Monitoring, Need for Nebulizer Therapy and Monitoring of Response, Risk of Complication if Not Cared For in Hospital
[2018-05-18] MEDS: MONTELUKAST SODIUM 10 MG TABLET PO SCH (21:20)
--- NOTE | 2018-05-18 23:56 | Progress Note ---
Provider Note Provider Note: CARDIOLOGY PROGRESS NOTE by Dr. Kristen Davis on 05/18/2018. SUBJECTIVE: The patient more awake today. She is off the BiPAPshe is on nasal cannula. She complains of cough with greenish yellow sputum production. There is no chest pain or discomfort. The patient is atrial flutter with a controlled ventricular response. She had a arterial line placed in the right femoral artery. This shows good stable blood pressure, and the patient is now weaned off the Hugh-Synephrine. She does have orthopnea but no PND she has mild leg edema. There is no anginal symptoms. There is no bleeding on heparin which has been held for for right thoracentesis planned for later today. There is no TIA CVA symptoms. PHYSICAL EXAMINATION: The patient is mildly obese. She appears to be ill, but is well-groomed. At present in no major distress. Selected Entries 05/18/18 12:00 Temperature 98.2 F Temperature Core Source Pulse Rate 75 Respiratory 18 Rate Blood Pressure 120/70 [RIGHT FEMORAL] Blood Pressure 86 Mean [RIGHT FEMORAL] Blood Pressure Supine Position [RIGHT FEMORAL] O2 Sat by Pulse 100 Oximetry Oxygen Delivery Nasal Cannula Method ( includes room air) Oxygen Flow 4 Rate HEAD: Atraumatic, normocephalic. EYES: Pupils equal round and reactive to light, extraocular movements intact, sclera anicteric, conjunctiva are normal. ENT: TMs normal, nares patent, oropharynx clear without exudates. Moist mucous membranes. NECK: Normal range of motion, supple without lymphadenopathy or JVD. Carotids are equal there is no bruits. There is no thyromegaly. There is no accessory muscles of respiration in use. Trachea central LUNGS: There is diminished air entry and prolonged expiration. There is occasional scattered rhonchi. There is no wheezing . There is bilateral absent breath sounds and dullness in both bases. About the area of dullness there is a few dry wet rales of CHF. Also scattered throughout the lung there are scattered dry crackles suggestive of multifocal pneumonia.. On palpation there is no chest wall tenderness. HEART: S1-S2 is heard. S1 is of intensity. There is no S3 gallop. There is no S4 gallop. There is systolic murmur left sternal border and apex without radiation. There is no rub.. ABDOMEN: Soft, nontender, normoactive bowel sounds. There is no hepatosplenic megaly no guarding, no rebound. No masses appreciated. EXTREMITIES: Normal range of motion, no pitting or edema. No clubbing or cyanosis. Femorals are well felt. There is no femoral bruits. Leg pulses are well felt. There is no DVT or cellulitis. There is no calf tenderness NEUROLOGICAL: Cranial nerves II through XII grossly intact. Normal speech, normal gait. The patient is awake alert oriented x3 with no focal deficits. PSYCH: Normal mood, normal affect. The patient judgment and insight are intact SKIN: Warm, Dry, normal turgor, no rashes or lesions noted. There is no petechia or ecchymosis. 05/18/18 05/18/18 05/18/18 04:54 04:54 04:54 WBC 10.9 H RBC 4.66 Hgb 14.7 Hct 43.2 MCV 93 MCH 31.5 MCHC 34.0 RDW 14.7 H Plt Count 138 L Seg Neutrophils % 89.7 H Lymphocytes % 5.2 L Monocytes % 4.6 Eosinophils % 0.1 Basophils % 0.4 Absolute Neutrophils 9.8 H Absolute Lymphocytes 0.6 Absolute Monocytes 0.5 Absolute Eosinophils 0.0 Absolute Basophils 0.0 APTT 150.4 H* D Carbonic Acid HCO3/H2CO3 Ratio ABG pH ABG pCO2 ABG pO2 ABG HCO3 ABG Total CO2 ABG O2 Saturation ABG Base Excess FiO2 Sodium 138.4 Potassium 3.6 Chloride 107 Carbon Dioxide 26 Anion Gap 5 BUN 48 H Creatinine 1.44 H Est GFR (Non-Af Amer) 36 L Glucose 106 Calcium 8.4 Magnesium 2.1 Lactate Dehydrogenase Total Protein 05/18/18 05/18/18 13:04 14:28 WBC RBC Hgb Hct MCV MCH MCHC RDW Plt Count Seg Neutrophils % Lymphocytes % Monocytes % Eosinophils % Basophils % Absolute Neutrophils Absolute Lymphocytes Absolute Monocytes Absolute Eosinophils Absolute Basophils APTT Carbonic Acid 0.74 L HCO3/H2CO3 Ratio 25:1 ABG pH 7.50 H ABG pCO2 24.5 L ABG pO2 103.8 H ABG HCO3 18.6 L ABG Total CO2 19.4 L ABG O2 Saturation 98.3 H ABG Base Excess -3.2 FiO2 4L Sodium Potassium Chloride Carbon Dioxide Anion Gap BUN Creatinine Est GFR (Non-Af Amer) Glucose Calcium Magnesium Lactate Dehydrogenase 471 H Total Protein 4.5 L IMPRESSION/RECOMMENDATION: 1. Acute respiratory failure, most likely secondary to congestive heart failure, atrial fibrillation with rapid ventricular response, COPD with exacerbation, and possibly pneumonia. 2. Recurrent atrial fibrillation with rapid ventricular response: Would not use amiodarone especially in view of the patient's abnormal TSH and elevated free T4 levels. The patient esmolol has been stopped and the patient is on a Cardizem drip and a heart rate is fairly well controlled.. 3. Hypotension most likely secondary atrial fibrillation with rapid ventricular response, and possible pneumonia/sepsis. Hypotension is resolved. The patient is off Hugh-Synephrine 4. Acute on chronic kidney disease. At present patient's kidney function is stage IV compared to her baseline of stage III. GFR is slightly improved. Nephrology on the case the patient's urine output is good, and the patient's renal function is slightly improved. 5. ELEVATED TROPONIN: No evidence of non-ST elevation HI this is secondary to supply demand mismatch due to the patient's atrial fibrillation with rapid ventricular response, borderline hypotension, and in a setting of acute on chronic kidney disease. Note the patient's cardiac catheterization in October 2017 showed nonobstructive coronary artery disease. 6.. COPD: He has acute exacerbation. 7. Congestive heart failure secondary to atrial fibrillation with rapid ventricular response in a patient with LV diastolic dysfunction. At present the patient does not seem to be in heart failure. We will start the patient on a Lasix drip. 8. Pneumonia: We will observe the patient clinically. At present patient is afebrile, but has cough with yellowish green sputum production the patient is on antibiotics 9. Non-Hodgkin's lymphoma:? Cured. The patient keeps missing getting an appointment with the oncologist. Will have oncologist see the patient. Discussed with Dr. Timothy lawrence 10. Iatrogenic hyperthyroidism. Would recommend holding the patient's thyroid replacement. We will recheck the patient's thyroid function tests. Medications reviewed. Medications adjusted. Management plan discussed with the attending physician on the case. Discussed with the patient also. Medical decision making is of high complexity. 50 minutes spent on this patient more than 50% of time spent in direct patient care. We will follow with you
[2018-05-19] MEDS: LEVALBUTEROL HCL NEB 1.25 MG/3 ML AMPUL NEB SCH ×3 (00:51→16:22)
[2018-05-19] MEDS: IPRATROPIUM BROMIDE 0.02% NEB 0.5 MG/2.5 ML AMPUL NEB SCH ×3 (00:51→16:22)
[2018-05-19 06:27] LABS: CARBON DIOXIDE 27 mmol/L (22-30); CHLORIDE 106 mmol/L (98-107); SODIUM 136.1 mmol/L (137-145)
[2018-05-19 06:45] LABS: ANION GAP 3 (5-19)
[2018-05-19 07:37] LABS: BLOOD UREA NITROGEN 46 mg/dL (7-20); GLUCOSE 108 mg/dL (75-110); POTASSIUM 3.3 mmol/L (3.6-5.0)
[2018-05-19] MEDS: BUDESONIDE NEB 0.5 MG/2 ML AMPUL NEB SCH ×2 (08:14→20:41)
--- NOTE | 2018-05-19 10:26 | RADIOLOGY REPORT (SQ) ---
EXAM DESCRIPTION: CHEST SINGLE VIEW COMPLETED DATE/TIME: 05/19/2018 9:46 am REASON FOR STUDY: resp failure COMPARISON: 05/18/2018. NUMBER OF VIEWS: One view. TECHNIQUE: Single frontal radiographic view of the chest acquired. LIMITATIONS: None. FINDINGS: LUNGS AND PLEURA: Patchy basilar atelectasis. No large pleural effusion. No pneumothorax . MEDIASTINUM AND HILAR STRUCTURES: No masses or contour abnormality. HEART AND VASCULATURE: Cardiac enlargement. Vascular congestion. BONES: No acute findings. HARDWARE: Central line. OTHER: No other significant finding. IMPRESSION: OVERALL NO SIGNIFICANT CHANGE. CARDIOMEGALY WITH VASCULAR CONGESTION. TECHNICAL DOCUMENTATION: JOB ID: [id number]- All Rights Reserved Reading location - IP/workstation name: [email or web address]
[2018-05-19] MEDS: MAGNESIUM OXIDE 400 MG TABLET PO SCH ×2 (10:30→17:25)
[2018-05-19] MEDS: ASPIRIN 81 MG TABLET, CHEWABLE PO SCH (10:30)
[2018-05-19] MEDS: ESCITALOPRAM OXALATE 10 MG TABLET PO SCH (10:30)
[2018-05-19] MEDS: FAMOTIDINE 20 MG TABLET PO SCH ×2 (10:30→21:14)
[2018-05-19] MEDS: BUSPIRONE HCL 10 MG TABLET PO SCH ×2 (10:30→17:25)
[2018-05-19] MEDS: DOCUSATE SODIUM 100 MG CAPSULE PO SCH ×2 (10:30→17:25)
[2018-05-19] MEDS: HEPARIN SODIUM,PORCINE/D5W 25,000 UNIT/250 ML RTUINJ IV PRN (10:31)
[2018-05-19] MEDS: NORMAL SALINE 250 ML with FUROSEMIDE 250 MG IV PRN ×2 (10:31)
[2018-05-19] MEDS ORDERED: POTASSIUM CHLORIDE 10 MEQ CAPSULE.ER PO ONE (11:00)
--- NOTE | 2018-05-19 11:09 | PDOC PROGRESS REPORT ---
Subjective Progress Note for:: 05/19/18 Subjective:: Patient does not have any other new complaints. She seems to be stable with blood pressure acceptable on low-dose of Lasix drip. She is making good amount of urine output. Reason For Visit: ATRIAL FIBRILLATION WITH RAPID VENTRICULAR Physical Exam Vital Signs: Temp Pulse Resp BP Pulse Ox 98.4 F 88 17 95/69 L 99 05/19/18 10:05 05/19/18 10:00 05/19/18 10:05 05/19/18 10:05 05/19/18 10:05 Intake & Output 05/18/18 05/19/18 05/20/18 06:59 06:59 06:59 Intake Total 1127 487 363 Output Total 1375 2925 250 Balance -248 -2438 113 Weight 83.1 kg 83.2 kg Exam: General appearance: PRESENT: no acute distress, cooperative, well-developed, well-nourished Head exam: PRESENT: atraumatic, normocephalic Eye exam: PRESENT: conjunctiva pale PERRLA. ABSENT: scleral icterus Neck exam: ABSENT: JVD Respiratory exam: PRESENT: Diminished breath sounds. ABSENT: crackles, rales, rhonchi, unlabored, wheezes Cardiovascular exam: PRESENT: Irregularly irregular rate rhythm -+S1, +S2. Grade 2/6 systolic murmur GI/Abdominal exam: PRESENT: normal bowel sounds, soft. ABSENT: guarding, mass, tenderness Extremities exam: Grade 1 bilateral lower extremity pitting edema Neurological exam: PRESENT: alert, awake, oriented to person, place and time. Skin exam: PRESENT: dry, warm, Results Laboratory Results: 05/18/18 04:54 05/19/18 05:50 05/18/18 05/18/18 05/18/18 13:04 13:35 13:35 Carbonic Acid 0.74 L HCO3/H2CO3 Ratio 25:1 ABG pH 7.50 H ABG pCO2 24.5 L ABG pO2 103.8 H ABG HCO3 18.6 L ABG O2 Saturation 98.3 H ABG Base Excess -3.2 FiO2 4L Sodium Potassium Chloride Carbon Dioxide Anion Gap BUN Creatinine Est GFR ( Amer) Est GFR (Non-Af Amer) Glucose Calcium Magnesium Total Protein Cancelled Fluid Type PLEURAL Fluid Source Fluid Color YELLOW Fluid Appearance CLEAR Fluid Viscosity LIQUID Fluid WBC 397 Fluid RBC 5680 05/18/18 05/19/18 05/19/18 14:28 05:50 08:30 Carbonic Acid HCO3/H2CO3 Ratio ABG pH ABG pCO2 ABG pO2 ABG HCO3 ABG O2 Saturation ABG Base Excess FiO2 Sodium 136.1 L Potassium 3.3 L Chloride 106 Carbon Dioxide 27 Anion Gap 3 L BUN 46 H Creatinine 1.23 Est GFR ( Amer) 52 L Est GFR (Non-Af Amer) 43 L Glucose 108 Calcium 8.0 L Magnesium 1.8 Total Protein 4.5 L Fluid Type Fluid Source Fluid Color Fluid Appearance Fluid Viscosity Fluid WBC Fluid RBC 05/15/18 05/15/18 05/15/18 19:55 23:56 23:56 Creatine Kinase 266 H CK-MB (CK-2) 4.43 Troponin I 0.150 0.171 05/16/18 05/16/18 05/16/18 05:59 05:59 12:19 Creatine Kinase 208 H 214 H CK-MB (CK-2) 3.87 Troponin I 0.163 05/16/18 12:19 Creatine Kinase CK-MB (CK-2) 4.58 H Troponin I 0.134 Impressions: Chest CT 05/17/18 16:28 IMPRESSION: LARGE BILATERAL PLEURAL EFFUSIONS, RIGHT GREATER THAN LEFT. DIFFUSE GROUND-GLASS OPACITIES SCATTERED THROUGHOUT BOTH LUNGS PROBABLY DUE TO PULMONARY EDEMA ALTHOUGH SUPERIMPOSED PNEUMONIA ALSO POSSIBLE. Thoracentesis Ultrasound 05/17/18 17:59 IMPRESSION: SUCCESSFUL THORACENTESIS USING ULTRASOUND GUIDANCE. Chest X-Ray 05/19/18 08:15 IMPRESSION: OVERALL NO SIGNIFICANT CHANGE. CARDIOMEGALY WITH VASCULAR CONGESTION. Assessment & Plan - Diagnosis (1) Acute kidney injury Is this a current diagnosis for this admission?: Yes Plan: Due to prerenal factors with mild ATN. Urine output has improved significantly . Kidney function continues to improve slowly. Patient's chest x-ray she still shows possible pulmonary congestion versus pneumonia and clinically she has edema. Patient on low-dose Lasix drip per Dr. Davis. Continue current management. (2) Atrial fibrillation with RVR Is this a current diagnosis for this admission?: Yes Plan: Now with controlled ventricular response and Cardizem drip. Cardiology following. (3) Iatrogenic hyperthyroidism Is this a current diagnosis for this admission?: Yes Plan: Possibly due to amiodarone toxicity. Thyroid function panel improved. (4) Acute on chronic diastolic heart failure Is this a current diagnosis for this admission?: Yes Plan: On Lasix drip. Radiographically shows pulmonary edema and congestion. (5) Elevated troponin Is this a current diagnosis for this admission?: Yes - Notes Notes: Patient is stable and improving from nephrology standpoint. No further recommendations. Will sign off at this time. Please do not hesitate to call us back if he can be of further assistance. - Time Time with patient: 15-25 minutes
[2018-05-19] MEDS ORDERED: POTASSIUM CHLORIDE 20 MEQ/15 ML UDCUP PO ONE ×2 (11:15→22:00)
[2018-05-19] MEDS: DILTIAZEM HCL/D5W 125 MG/125 ML RTUINJ IV PRN (12:03)
--- NOTE | 2018-05-19 13:19 | PDOC PROGRESS REPORT ---
Subjective Progress Note for:: 05/19/18 Subjective:: This is a 73 year old female with a PMH of paroxysmal Afib, history of amiodarone toxicity, hypothyroidism, COPD on 2L of home O2, CAD and diastolic heart failure who initially had light headedness and was found to be in Afib with RVR by EMs (HR in the 180s). She was started on esmolol drip and was admitted to the ICU. 05/17/18: This morning, patient appeared comfortable but later had SOB and was breathing in the 30s. She was given a dose of IV Lasix and her blood pressure went down to the 50 systolic. Esmolol drip was initially held. Upon re- evaluation, she denies chest pain or SOB. She was started on neosynephrine with prompt improvement of her blood pressure and esmolol was later also resumed. She did have fine crackles bilaterally. Chest CT showed significant bilateral pleural effusions and ground glass opacities. 05/18/18: No acute event overnight. Patient just had thoracentesis and had 1L of orange colored fluid drained from the right pleural cavity. She says her breathing improved a lot after the thoracentesis. Currently saturating well on 3L via NC. Denies chest pain. She has been weaned off neosynephrine. Currently on cardizem and lasix drips. 05/19/18: No acute event overnight. Blood pressures remain stable. She has been off pressors since yesterday. Heart rate controlled on cardizem drip. On Lasix drip as well. She says she feels better today and SOB has improved after the right sided thoracentesis. Off BIPAP. She is saturating well on 3L via NC. Reason For Visit: ATRIAL FIBRILLATION WITH RAPID VENTRICULAR Physical Exam Vital Signs: Temp Pulse Resp BP Pulse Ox 98.4 F 77 17 95/69 L 99 05/19/18 10:05 05/19/18 10:00 05/19/18 10:05 05/19/18 10:05 05/19/18 10:05 Intake & Output 05/18/18 05/19/18 05/20/18 06:59 06:59 06:59 Intake Total 1127 487 363 Output Total 1372 2925 250 Balance -248 -2438 113 Weight 183 lb 3.266 oz 183 lb 6.793 oz General appearance: PRESENT: no acute distress, well-developed, well-nourished Head exam: PRESENT: atraumatic, normocephalic Eye exam: PRESENT: conjunctiva pink, EOMI, PERRLA. ABSENT: scleral icterus Ear exam: PRESENT: normal external ear exam Mouth exam: PRESENT: moist, tongue midline Neck exam: ABSENT: carotid bruit, JVD, lymphadenopathy, thyromegaly Respiratory exam: PRESENT: decreased breath sounds - dec BS on the bases, rales, rhonchi. ABSENT: wheezes Cardiovascular exam: PRESENT: irregular rhythm, tachycardia Pulses: PRESENT: normal dorsalis pedis pul GI/Abdominal exam: PRESENT: normal bowel sounds, soft. ABSENT: distended, guarding, mass, organolmegaly, rebound, tenderness Rectal exam: PRESENT: deferred Neurological exam: PRESENT: alert, awake, oriented to person, oriented to place, oriented to time, oriented to situation, CN II-XII grossly intact. ABSENT: motor sensory deficit Results Laboratory Results: 05/18/18 04:54 05/19/18 05:50 05/18/18 05/18/18 05/18/18 13:04 13:35 13:35 Carbonic Acid 0.74 L HCO3/H2CO3 Ratio 25:1 ABG pH 7.50 H ABG pCO2 24.5 L ABG pO2 103.8 H ABG HCO3 18.6 L ABG O2 Saturation 98.3 H ABG Base Excess -3.2 FiO2 4L Sodium Potassium Chloride Carbon Dioxide Anion Gap BUN Creatinine Est GFR ( Amer) Est GFR (Non-Af Amer) Glucose Calcium Magnesium Total Protein Cancelled Fluid Type PLEURAL Fluid Source Fluid Color YELLOW Fluid Appearance CLEAR Fluid Viscosity LIQUID Fluid WBC 397 Fluid RBC 5680 05/18/18 05/19/18 05/19/18 14:28 05:50 08:30 Carbonic Acid HCO3/H2CO3 Ratio ABG pH ABG pCO2 ABG pO2 ABG HCO3 ABG O2 Saturation ABG Base Excess FiO2 Sodium 136.1 L Potassium 3.3 L Chloride 106 Carbon Dioxide 27 Anion Gap 3 L BUN 46 H Creatinine 1.23 Est GFR ( Amer) 52 L Est GFR (Non-Af Amer) 43 L Glucose 108 Calcium 8.0 L Magnesium 1.8 Total Protein 4.5 L Fluid Type Fluid Source Fluid Color Fluid Appearance Fluid Viscosity Fluid WBC Fluid RBC 05/15/18 05/15/18 05/15/18 19:55 23:56 23:56 Creatine Kinase 266 H CK-MB (CK-2) 4.43 Troponin I 0.150 0.171 05/16/18 05/16/18 05/16/18 05:59 05:59 12:19 Creatine Kinase 208 H 214 H CK-MB (CK-2) 3.87 Troponin I 0.163 05/16/18 12:19 Creatine Kinase CK-MB (CK-2) 4.58 H Troponin I 0.134 Impressions: Chest CT 05/17/18 16:28 IMPRESSION: LARGE BILATERAL PLEURAL EFFUSIONS, RIGHT GREATER THAN LEFT. DIFFUSE GROUND-GLASS OPACITIES SCATTERED THROUGHOUT BOTH LUNGS PROBABLY DUE TO PULMONARY EDEMA ALTHOUGH SUPERIMPOSED PNEUMONIA ALSO POSSIBLE. Thoracentesis Ultrasound 05/17/18 17:59 IMPRESSION: SUCCESSFUL THORACENTESIS USING ULTRASOUND GUIDANCE. Chest X-Ray 05/19/18 08:15 IMPRESSION: OVERALL NO SIGNIFICANT CHANGE. CARDIOMEGALY WITH VASCULAR CONGESTION. Assessment & Plan - Diagnosis (1) Atrial fibrillation with RVR Is this a current diagnosis for this admission?: Yes Plan: On cardizem drip. Eliquis on hold. Currently on heparin drip for left sided thoracentesis later today. She had right sided thoracentesis on 05/18/18. (2) Hypotension Is this a current diagnosis for this admission?: Yes Plan: Resolved. Off arturo drip since 05/18/18. (3) Acute kidney injury Is this a current diagnosis for this admission?: Yes Plan: Continue to improve. Creatinine has continue to trend down to 1.2. (4) Acute on chronic diastolic (congestive) heart failure Is this a current diagnosis for this admission?: Yes Plan: On Lasix drip. Cardiology following. (5) Pleural effusion Is this a current diagnosis for this admission?: Yes Plan: CT showed significant bilateral pleural effusions. Differential includes para- pneumonic, CHF-related or ?malignant pleural effusion (has history of lymphoma). S/P right sided thoracentesis (1L drained) on 05/18/18. Pleural fluid studies pending. - Time Time Spent with patient: 25-34 minutes
[2018-05-19] MEDS ORDERED: POTASSIUM CHLORIDE 20 MEQ/15 ML UDCUP ONE (14:07)
[2018-05-19] MEDS: PHARMACY COMMUNICATION ORDER MC SCH (17:25)
[2018-05-19] MEDS: CEFTRIAXONE 1 GM/D5W RTU 1 GM/50 ML RTUPB IV SCH (17:25)
[2018-05-19 19:03] LABS: ANION GAP 6 (5-19); BLOOD UREA NITROGEN 43 mg/dL (7-20); CALCIUM 7.9 mg/dL (8.4-10.2); CARBON DIOXIDE 28 mmol/L (22-30); CHLORIDE 103 mmol/L (98-107); GLUCOSE 81 mg/dL (75-110); POTASSIUM 3.1 mmol/L (3.6-5.0)
--- NOTE | 2018-05-19 20:27 | Progress Note ---
Provider Note Provider Note: CARDIOLOGY PROGRESS NOTE by Dr. Kristen Davis on 05/19/2018. SUBJECTIVE: The patient states she feels much improved. Her heart rate is controlled. Her blood pressure is above 95. The patient is awake and alert. She continues to have some cough and orthopnea. She is producing minimal amounts of greenish yellow sputum. There is no chest pain or discomfort. There is no bleeding on full dose IV heparin. She has no ventricular arrhythmia seen on the monitor. There is no TIA CVA symptoms. The pleural effusion results of the analysis is yet to be placed on the chart. SUBJECTIVE: The patient is a frail build. Appears to be ill. But at present in no acute distress. Selected Entries 05/19/18 05/19/18 17:04 17:05 Temperature 97.7 F Heart Rate ( 93 Monitors) Respiratory 16 Rate Blood Pressure 92/68 L Blood Pressure 76 Mean O2 Sat by Pulse 100 Oximetry HEAD: Atraumatic, normocephalic. EYES: Pupils equal round and reactive to light, extraocular movements intact, sclera anicteric, conjunctiva are normal. ENT: TMs normal, nares patent, oropharynx clear without exudates. Moist mucous membranes. NECK: Normal range of motion, supple without lymphadenopathy or JVD. Carotids are equal there is no bruits. There is no thyromegaly. There is no accessory muscles of respiration in use. Trachea central LUNGS: There is diminished air entry and prolonged expiration. There is occasional scattered rhonchi. There are no wet rales of CHF today. Also scattered throughout the lung there are scattered dry crackles suggestive of multifocal pneumonia.. On palpation there is no chest wall tenderness. HEART: S1-S2 is heard. S1 is of intensity. There is no S3 gallop. There is no S4 gallop. There is systolic murmur left sternal border and apex without radiation. There is no rub.. ABDOMEN: Soft, nontender, normoactive bowel sounds. There is no hepatosplenic megaly no guarding, no rebound. No masses appreciated. EXTREMITIES: Normal range of motion, no pitting or edema. No clubbing or cyanosis. Femorals are well felt. There is no femoral bruits. Leg pulses are well felt. There is no DVT or cellulitis. There is no calf tenderness NEUROLOGICAL: Cranial nerves II through XII grossly intact. Normal speech, normal gait. The patient is awake alert oriented x3 with no focal deficits. PSYCH: Normal mood, normal affect. The patient judgment and insight are intact SKIN: Warm, Dry, normal turgor, no rashes or lesions noted. There is no petech ia or ecchymosis. 05/18/18 05/18/18 05/18/18 13:35 13:35 14:28 APTT Sodium Potassium Chloride Carbon Dioxide Anion Gap BUN Creatinine Est GFR ( Amer) Est GFR (Non-Af Amer) Glucose Calcium Magnesium Lactate Dehydrogenase 471 H Total Protein 4.5 L Fluid Type PLEURAL Fluid Color YELLOW Fluid Appearance CLEAR Fluid Viscosity LIQUID Fluid WBC 397 Fluid RBC 5680 Fluid Seg Neutrophils 73 Fluid Lymphocytes 21 Fluid Monocytes 6 Fluid Eosinophils 0 Fluid Basophils 0 Fluid Total Protein Pending Fluid LDH Pending 05/19/18 05/19/18 05/19/18 05:50 05:50 08:30 APTT 82.3 H Sodium 136.1 L Potassium 3.3 L Chloride 106 Carbon Dioxide 27 Anion Gap 3 L BUN 46 H Creatinine 1.23 Est GFR ( Amer) 52 L Est GFR (Non-Af Amer) 43 L Glucose 108 Calcium 8.0 L Magnesium 1.8 Lactate Dehydrogenase Total Protein Fluid Type Fluid Color Fluid Appearance Fluid Viscosity Fluid WBC Fluid RBC Fluid Seg Neutrophils Fluid Lymphocytes Fluid Monocytes Fluid Eosinophils Fluid Basophils Fluid Total Protein Fluid LDH 05/19/18 16:25 APTT Sodium 137.0 Potassium 3.1 L Chloride 103 Carbon Dioxide 28 Anion Gap 6 BUN 43 H Creatinine 1.14 Est GFR ( Amer) Est GFR (Non-Af Amer) 47 L Glucose 81 Calcium 7.9 L Magnesium Lactate Dehydrogenase Total Protein Fluid Type Fluid Color Fluid Appearance Fluid Viscosity Fluid WBC Fluid RBC Fluid Seg Neutrophils Fluid Lymphocytes Fluid Monocytes Fluid Eosinophils Fluid Basophils Fluid Total Protein Fluid LDH Patient's chest x-ray shows bibasilar patchy infiltrates suggestive of pneumonia. My interpretation is that there is no congestive heart failure. The patient's total 24-hour intake is 537 mL, output is 2925 mL. IMPRESSION/RECOMMENDATION: 1. Acute respiratory failure, most likely secondary to congestive heart failure, atrial fibrillation with rapid ventricular response, COPD with exacerbation, and possibly pneumonia. 2. Recurrent atrial fibrillation with rapid ventricular response: Would not use amiodarone especially in view of the patient's abnormal TSH and elevated free T4 levels. The patient esmolol has been stopped and the patient is on a Cardizem drip and a heart rate is fairly well controlled.. 3. Hypotension most likely secondary atrial fibrillation with rapid ventricular response, and possible pneumonia/sepsis. Hypotension is resolved. The patient is off Hugh-Synephrine 4. Acute on chronic kidney disease. At present patient's kidney function is stage IV compared to her baseline of stage III. GFR is slightly improved. Nephrology on the case the patient's urine output is good, and the patient's renal function is slightly improved. 5. ELEVATED TROPONIN: No evidence of non-ST elevation VT this is secondary to supply demand mismatch due to the patient's atrial fibrillation with rapid ventricular response, borderline hypotension, and in a setting of acute on chronic kidney disease. Note the patient's cardiac catheterization in October 2017 showed nonobstructive coronary artery disease. 6.. COPD: Acute exacerbation. Seems to be improving 7. Congestive heart failure secondary to atrial fibrillation with rapid ventricular response in a patient with LV diastolic dysfunction. At present the patient does not seem to be in heart failure. We will start the patient on a Lasix drip. Note that the patient seems to be much improved. 8. Pneumonia: We will observe the patient clinically. At present patient is afebrile, but has cough with yellowish green sputum production the patient is on antibiotics. 9. Non-Hodgkin's lymphoma:? Cured. The patient keeps missing getting an appointment with the oncologist. Will have oncologist see the patient. Discussed with Dr. Timothy lawrence 10. Iatrogenic hyperthyroidism. Would recommend holding the patient's thyroid replacement. We will recheck the patient's thyroid function tests. 11. Pleural effusions. Status post thoracentesis on the right side. At present no large pleural effusions. Await pleural fluid analysis. Medications reviewed. Medications adjusted. Management plan discussed with the attending physician on the case. Discussed with the patient also. Medical decision making is of high complexity. 50 minutes spent on this patient more than 50% of time spent in direct patient care. We will follow with you.
[2018-05-19] MEDS: MONTELUKAST SODIUM 10 MG TABLET PO SCH (21:14)
[2018-05-19] MEDS: POTASSIUM CHLORIDE 20 MEQ/50 ML RTU IV SCH ×2 (21:15→23:50)
[2018-05-20] MEDS: DILTIAZEM HCL/D5W 125 MG/125 ML RTUINJ IV PRN ×2 (00:11→15:30)
[2018-05-20] MEDS: IPRATROPIUM BROMIDE 0.02% NEB 0.5 MG/2.5 ML AMPUL NEB SCH ×4 (00:11→23:50)
[2018-05-20] MEDS: LEVALBUTEROL HCL NEB 1.25 MG/3 ML AMPUL NEB SCH ×4 (00:12→23:50)
[2018-05-20 06:04] LABS: HEMATOCRIT 35.2 % (36.0-47.0); MEAN CORPUSCULAR HEMOGLOBIN 30.8 pg (27.0-33.4); MEAN CORPUSCULAR HGB CONC 33.7 g/dL (32.0-36.0); MEAN CORPUSCULAR VOLUME 92 fl (80-97); PLATELET COUNT 124 10^3/uL (150-450); RED BLOOD COUNT 3.84 10^6/uL (3.72-5.28); RED CELL DISTRIBUTION WIDTH 14.9 % (11.5-14.0); WHITE BLOOD COUNT 9.1 10^3/uL (4.0-10.5)
[2018-05-20 06:05] LABS: HEMOGLOBIN 11.8 g/dL (12.0-15.5)
[2018-05-20 06:07] LABS: ARTERIAL BLOOD BASE EXCESS -11.6 mmol/L; ARTERIAL BLOOD H2CO3 0.37 mmol/L (1.05-1.35); ARTERIAL BLOOD HCO3 10.4 mmol/L (20-24); ARTERIAL BLOOD O2 SATURATION 99.3 % (94-98); ARTERIAL BLOOD PH 7.54 (7.35-7.45); ARTERIAL BLOOD PO2 154.2 mmHg (80-100); ARTERIAL BLOOD TOTAL CO2 10.8 mmol/L (21-25)
[2018-05-20 06:14] LABS: ARTERIAL BLOOD FIO2 2L
[2018-05-20 06:16] LABS: ARTERIAL BLOOD PCO2 12.4 mmHg (35-45)
[2018-05-20 06:36] LABS: BLOOD UREA NITROGEN 41 mg/dL (7-20); GLUCOSE 101 mg/dL (75-110)
[2018-05-20 06:42] LABS: CARBON DIOXIDE 28 mmol/L (22-30); CHLORIDE 106 mmol/L (98-107); SODIUM 137.2 mmol/L (137-145)
[2018-05-20 07:05] LABS: ANION GAP 3 (5-19); POTASSIUM 4.5 mmol/L (3.6-5.0)
--- NOTE | 2018-05-20 07:18 | RADIOLOGY REPORT (SQ) ---
EXAM DESCRIPTION: XR CHEST 1 VIEW COMPLETED DATE/TME: 05/20/2018 06:00 CLINICAL HISTORY: Respiratory Distress. 73 years Female, resp failure COMPARISON: One day prior. NUMBER OF VIEWS/TECHNIQUE: 1/AP FINDINGS: Small bibasilar/costophrenic opacity-effusion. Right jugular central line tip at the inferior right atrium; consider retraction of the right jugular line by 10 cm. Prominent cardiac silhouette.No pneumothorax. Stable bony thorax. IMPRESSION: Right jugular central line tip at the inferior right atrium; consider retraction of the right jugular line by 10 cm.New small bibasilar opacity-effusion.
[2018-05-20] MEDS: BUDESONIDE NEB 0.5 MG/2 ML AMPUL NEB SCH ×2 (08:54→19:29)
[2018-05-20 09:01] LABS: ARTERIAL BLOOD BASE EXCESS -0.7 mmol/L; ARTERIAL BLOOD H2CO3 0.85 mmol/L (1.05-1.35); ARTERIAL BLOOD HCO3 21.6 mmol/L (20-24); ARTERIAL BLOOD PCO2 28.4 mmHg (35-45); ARTERIAL BLOOD PO2 135.7 mmHg (80-100); ARTERIAL BLOOD TOTAL CO2 22.4 mmol/L (21-25)
[2018-05-20 09:03] LABS: ARTERIAL BLOOD FIO2 2L
[2018-05-20 09:06] LABS: APPEARANCE,URINE CLEAR; BILIRUBIN,URINE NEGATIVE (NEGATIVE); COLOR,URINE YELLOW; GLUCOSE, URINE NEGATIVE (NEGATIVE); KETONES,URINE NEGATIVE (NEGATIVE); LEUKOCYTE ESTERASE,URINE TRACE (NEGATIVE); NITRITE,URINE NEGATIVE (NEGATIVE); PROTEIN,URINE NEGATIVE (NEGATIVE); URINE SPECIFIC GRAVITY 1.009; UROBILINOGEN,URINE NEGATIVE mg/dL (<2.0)
[2018-05-20] MEDS: ESCITALOPRAM OXALATE 10 MG TABLET PO SCH (09:31)
[2018-05-20] MEDS: BUSPIRONE HCL 10 MG TABLET PO SCH ×2 (09:31→17:51)
[2018-05-20] MEDS: ASPIRIN 81 MG TABLET, CHEWABLE PO SCH (09:31)
[2018-05-20] MEDS: MAGNESIUM OXIDE 400 MG TABLET PO SCH ×2 (09:31→17:51)
[2018-05-20] MEDS: DOCUSATE SODIUM 100 MG CAPSULE PO SCH ×2 (09:31→17:51)
[2018-05-20] MEDS: FAMOTIDINE 20 MG TABLET PO SCH ×2 (09:31→21:08)
[2018-05-20] MEDS: ONDANSETRON HCL INJ/PF 4 MG/2 ML SDV IV PRN (14:30)
--- NOTE | 2018-05-20 15:14 | PDOC PROGRESS REPORT ---
Subjective Progress Note for:: 05/20/18 Subjective:: This is a 73 year old female with a PMH of paroxysmal Afib, history of amiodarone toxicity, hypothyroidism, COPD on 2L of home O2, CAD and diastolic heart failure who initially had light headedness and was found to be in Afib with RVR by EMs (HR in the 180s). She was started on esmolol drip and was admitted to the ICU. 05/17/18: This morning, patient appeared comfortable but later had SOB and was breathing in the 30s. She was given a dose of IV Lasix and her blood pressure went down to the 50 systolic. Esmolol drip was initially held. Upon re- evaluation, she denies chest pain or SOB. She was started on neosynephrine with prompt improvement of her blood pressure and esmolol was later also resumed. She did have fine crackles bilaterally. Chest CT showed significant bilateral pleural effusions and ground glass opacities. 05/18/18: No acute event overnight. Patient just had thoracentesis and had 1L of orange colored fluid drained from the right pleural cavity. She says her breathing improved a lot after the thoracentesis. Currently saturating well on 3L via NC. Denies chest pain. She has been weaned off neosynephrine. Currently on cardizem and lasix drips. 05/19/18: No acute event overnight. Blood pressures remain stable. She has been off pressors since yesterday. Heart rate controlled on cardizem drip. On Lasix drip as well. She says she feels better today and SOB has improved after the right sided thoracentesis. Off BIPAP. She is saturating well on 3L via NC. 05/20/18: No acute issues. Still on cardizem drip and lasix drip. Off pressor. She says she feels better today. She is more awake and coherent. ABG shows respiratory alkalosis with some component of metabolic alkalosis likely from diuresis. She has been off BIPAP and continues to saturate well on 3L. CXR shows central line tip in inferior RA. Reason For Visit: ATRIAL FIBRILLATION WITH RAPID VENTRICULAR Physical Exam Vital Signs: Temp Pulse Resp BP Pulse Ox 99.3 F 98 17 91/64 L 96 05/20/18 14:05 05/20/18 14:00 05/20/18 14:05 05/20/18 14:05 05/20/18 14:05 Intake & Output 05/19/18 05/20/18 05/21/18 06:59 06:59 06:59 Intake Total 537 599 373 Output Total 2920 2009 800 Balance -2388 -1411 -427 Weight 183 lb 6.793 oz 182 lb 5.156 oz General appearance: PRESENT: no acute distress, well-developed, well-nourished Head exam: PRESENT: atraumatic, normocephalic Eye exam: PRESENT: conjunctiva pink, EOMI, PERRLA. ABSENT: scleral icterus Ear exam: PRESENT: normal external ear exam Mouth exam: PRESENT: moist, tongue midline Neck exam: ABSENT: carotid bruit, JVD, lymphadenopathy, thyromegaly Respiratory exam: PRESENT: decreased breath sounds - slightly dec BS on the bas es. ABSENT: rales, rhonchi, wheezes Cardiovascular exam: PRESENT: irregular rhythm, RRR, tachycardia Pulses: PRESENT: normal dorsalis pedis pul GI/Abdominal exam: PRESENT: normal bowel sounds, soft. ABSENT: distended, guard ing, mass, organolmegaly, rebound, tenderness Rectal exam: PRESENT: deferred Neurological exam: PRESENT: alert, awake, oriented to person, oriented to place, oriented to time, CN II-XII grossly intact. ABSENT: motor sensory deficit Results Laboratory Results: 05/20/18 05:44 05/20/18 05:44 05/19/18 05/19/18 05/20/18 16:25 20:07 05:44 WBC RBC Hgb Hct MCV MCH MCHC RDW Plt Count Carbonic Acid 0.37 L HCO3/H2CO3 Ratio 28:1 ABG pH 7.54 H ABG pCO2 12.4 L* ABG pO2 154.2 H ABG HCO3 10.4 L ABG O2 Saturation 99.3 H ABG Base Excess -11.6 FiO2 2L Sodium 137.0 Potassium 3.1 L Chloride 103 Carbon Dioxide 28 Anion Gap 6 BUN 43 H Creatinine 1.14 Est GFR ( Amer) 57 L Est GFR (Non-Af Amer) 47 L Glucose 81 Calcium 7.9 L Magnesium 1.7 Urine Color Urine Appearance Urine pH Ur Specific [place] Urine Protein Urine Glucose (UA) Urine Ketones Urine Blood Urine Nitrite Ur Leukocyte Esterase Urine WBC (Auto) Urine RBC (Auto) 05/20/18 05/20/18 05/20/18 05:44 05:44 08:47 WBC 9.1 RBC 3.84 Hgb 11.8 L D Hct 35.2 L MCV 92 MCH 30.8 MCHC 33.7 RDW 14.9 H Plt Count 124 L Carbonic Acid 0.85 L HCO3/H2CO3 Ratio 25:1 ABG pH 7.50 H ABG pCO2 28.4 L ABG pO2 135.7 H ABG HCO3 21.6 ABG O2 Saturation 99.0 H ABG Base Excess -0.7 FiO2 2L Sodium 137.2 Potassium 4.5 D Chloride 106 Carbon Dioxide 28 Anion Gap 3 L BUN 41 H Creatinine 1.19 Est GFR ( Amer) 54 L Est GFR (Non-Af Amer) 45 L Glucose 101 Calcium 8.0 L Magnesium Urine Color Urine Appearance Urine pH Ur Specific [place] Urine Protein Urine Glucose (UA) Urine Ketones Urine Blood Urine Nitrite Ur Leukocyte Esterase Urine WBC (Auto) Urine RBC (Auto) 05/20/18 08:47 WBC RBC Hgb Hct MCV MCH MCHC RDW Plt Count Carbonic Acid HCO3/H2CO3 Ratio ABG pH ABG pCO2 ABG pO2 ABG HCO3 ABG O2 Saturation ABG Base Excess FiO2 Sodium Potassium Chloride Carbon Dioxide Anion Gap BUN Creatinine Est GFR ( Amer) Est GFR (Non-Af Amer) Glucose Calcium Magnesium Urine Color YELLOW Urine Appearance CLEAR Urine pH 5.0 Ur Specific [place] 1.009 Urine Protein NEGATIVE Urine Glucose (UA) NEGATIVE Urine Ketones NEGATIVE Urine Blood SMALL H Urine Nitrite NEGATIVE Ur Leukocyte Esterase TRACE H Urine WBC (Auto) 4 Urine RBC (Auto) 2 05/15/18 05/15/18 05/15/18 19:55 23:56 23:56 Creatine Kinase 266 H CK-MB (CK-2) 4.43 Troponin I 0.150 0.171 05/16/18 05/16/18 05/16/18 05:59 05:59 12:19 Creatine Kinase 208 H 214 H CK-MB (CK-2) 3.87 Troponin I 0.163 05/16/18 12:19 Creatine Kinase CK-MB (CK-2) 4.58 H Troponin I 0.134 Impressions: Chest CT 05/17/18 16:28 IMPRESSION: LARGE BILATERAL PLEURAL EFFUSIONS, RIGHT GREATER THAN LEFT. DIFFUSE GROUND-GLASS OPACITIES SCATTERED THROUGHOUT BOTH LUNGS PROBABLY DUE TO PULMONARY EDEMA ALTHOUGH SUPERIMPOSED PNEUMONIA ALSO POSSIBLE. Thoracentesis Ultrasound 05/17/18 17:59 IMPRESSION: SUCCESSFUL THORACENTESIS USING ULTRASOUND GUIDANCE. Chest X-Ray 05/20/18 06:00 IMPRESSION: Right jugular central line tip at the inferior right atrium; consider retraction of the right jugular line by 10 cm.New small bibasilar opacity-effusion. Assessment & Plan - Diagnosis (1) Atrial fibrillation with RVR Is this a current diagnosis for this admission?: Yes Plan: On cardizem drip. Eliquis on hold. Currently on heparin drip. Left sided thoracentesis deferred by radiology as it was deemed not significant enough to be drained. She had right sided thoracentesis on 05/18/18. Will continue heparin drip. If chest findings remain stable in the next 2 days, will switch back to Eliquis. (2) Hypotension Is this a current diagnosis for this admission?: Yes Plan: Resolved. Off arturo drip since 05/18/18. (3) Acute kidney injury Is this a current diagnosis for this admission?: Yes Plan: Continue to improve. Creatinine has continue to trend down to 1.1. (4) Acute on chronic diastolic (congestive) heart failure Is this a current diagnosis for this admission?: Yes Plan: On Lasix drip. Cardiology following. (5) Pleural effusion Is this a current diagnosis for this admission?: Yes Plan: CT showed significant bilateral pleural effusions. Differential includes para- pneumonic, CHF-related or ?malignant pleural effusion (has history of lymphoma). S/P right sided thoracentesis (1L drained) on 05/18/18. Pleural fluid studies s till pending. - Time Time Spent with patient: 35 or more minutes
[2018-05-20] MEDS: CEFTRIAXONE 1 GM/D5W RTU 1 GM/50 ML RTUPB IV SCH (17:51)
[2018-05-20] MEDS: HEPARIN SODIUM,PORCINE/D5W 25,000 UNIT/250 ML RTUINJ IV PRN (17:58)
[2018-05-20] MEDS: PHARMACY COMMUNICATION ORDER MC SCH (18:06)
[2018-05-20] MEDS: NORMAL SALINE 250 ML with FUROSEMIDE 250 MG IV PRN ×2 (18:26)
--- NOTE | 2018-05-20 21:03 | Progress Note ---
Provider Note Provider Note: CARDIOLOGY PROGRESS NOTES by Dr. Kristen Davis on 05/20/2018. SUBJECTIVE: The patient states her breathing is much better. She still has orthopnea. She has no PND. She has no chest pain or discomfort. She has cough which is much less and very scanty yellowish greenish sputum production. There is no wheezing. There is no bleeding on IV heparin. There is no TIA CVA symptoms. The patient continues to be in atrial flutter with a controlled ventricular response. PHYSICAL EXAMINATION: The patient appears to be chronically ill. She is a frail build. But she is in no acute distress. Selected Entries 05/20/18 14:00 Temperature 99.1 F Temperature Core Source Pulse Rate 98 Respiratory 17 Rate Blood Pressure 138/82 H [RIGHT FEMORAL] O2 Sat by Pulse 100 Oximetry Oxygen Delivery Nasal Cannula Method ( includes room air) Oxygen Flow 2 Rate HEAD: Atraumatic, normocephalic. EYES: Pupils equal round and reactive to light, extraocular movements intact, sclera anicteric, conjunctiva are normal. ENT: TMs normal, nares patent, oropharynx clear without exudates. Moist mucous membranes. NECK: Normal range of motion, supple without lymphadenopathy or JVD. Carotids are equal there is no bruits. There is no thyromegaly. There is no accessory muscles of respiration in use. Trachea central LUNGS: There is diminished air entry and prolonged expiration. There is occasional scattered rhonchi. There are no wet rales of CHF today. Also scattered throughout the lung there are scattered dry crackles suggestive of multifocal pneumonia.. On palpation there is no chest wall tenderness. HEART: S1-S2 is heard. S1 is of variable intensity. There is no S3 gallop. There is no S4 gallop. There is systolic murmur left sternal border and apex without radiation. There is no rub.. ABDOMEN: Soft, nontender, normoactive bowel sounds. There is no hepatosplenic megaly no guarding, no rebound. No masses appreciated. EXTREMITIES: Normal range of motion, no pitting or edema. No clubbing or cyanosis. Femorals are well felt. There is no femoral bruits. Leg pulses are well felt. There is no DVT or cellulitis. There is no calf tenderness NEUROLOGICAL: Cranial nerves II through XII grossly intact. Normal speech, normal gait. The patient is awake alert oriented x3 with no focal deficits. PSYCH: Normal mood, normal affect. The patient judgment and insight are intact SKIN: Warm, Dry, normal turgor, no rashes or lesions noted. There is no petechia or ecchymosis 05/20/18 05/20/18 05/20/18 05:44 05:44 08:47 WBC 9.1 RBC 3.84 Hgb 11.8 L D Hct 35.2 L MCV 92 MCH 30.8 MCHC 33.7 RDW 14.9 H Plt Count 124 L APTT Carbonic Acid 0.85 L HCO3/H2CO3 Ratio 25:1 ABG pH 7.50 H ABG pCO2 28.4 L ABG pO2 135.7 H ABG HCO3 21.6 ABG Total CO2 22.4 ABG O2 Saturation 99.0 H ABG Base Excess -0.7 FiO2 2L Sodium 137.2 Potassium 4.5 D Chloride 106 Carbon Dioxide 28 Anion Gap 3 L BUN 41 H Creatinine 1.19 Est GFR (Non-Af Amer) 45 L Glucose 101 Calcium 8.0 L 05/20/18 14:29 WBC RBC Hgb Hct MCV MCH MCHC RDW Plt Count APTT 60.8 H Carbonic Acid HCO3/H2CO3 Ratio ABG pH ABG pCO2 ABG pO2 ABG HCO3 ABG Total CO2 ABG O2 Saturation ABG Base Excess FiO2 Sodium Potassium Chloride Carbon Dioxide Anion Gap BUN Creatinine Est GFR (Non-Af Amer) Glucose Calcium The pleural fluid analysis is still awaited. The 24-hour total intake is 599 mL, and output for 24 hours is 2010 mL. IMPRESSION/RECOMMENDATION: 1. Acute respiratory failure, most likely secondary to congestive heart failure, atrial fibrillation with rapid ventricular response, COPD with exacerbation, and possibly pneumonia. 2. Recurrent atrial fibrillation with rapid ventricular response: Would not use amiodarone especially in view of the patient's abnormal TSH and elevated free T4 levels. The patient esmolol has been stopped and the patient is on a Cardizem drip and a heart rate is fairly well controlled.. 3. Hypotension most likely secondary atrial fibrillation with rapid ventricular response, and possible pneumonia/sepsis. Hypotension is resolved. The patient is off Hugh-Synephrine 4. Acute on chronic kidney disease. At present patient's kidney function is stage IV compared to her baseline of stage III. GFR is slightly improved. Nephrology on the case the patient's urine output is good.. 5. ELEVATED TROPONIN: No evidence of non-ST elevation ME this is secondary to supply demand mismatch due to the patient's atrial fibrillation with rapid ventricular response, borderline hypotension, and in a setting of acute on chronic kidney disease. Note the patient's cardiac catheterization in October 2017 showed nonobstructive coronary artery disease. 6.. COPD: Acute exacerbation. Seems to be improving 7. Congestive heart failure secondary to atrial fibrillation with rapid ventricular response in a patient with LV diastolic dysfunction. At present the patient does not seem to be in heart failure. We will start the patient on a Lasix drip. Note that the patient seems to be much improved. 8. Pneumonia: We will observe the patient clinically. At present patient is afebrile, but has cough with yellowish green sputum production the patient is on antibiotics. 9. Non-Hodgkin's lymphoma:? Cured. The patient keeps missing getting an appointment with the oncologist. Will have oncologist see the patient. Discussed with Dr. Timothy lawrence 10. Iatrogenic hyperthyroidism. Would recommend holding the patient's thyroid replacement. We will recheck the patient's thyroid function tests. 11. Pleural effusions. Status post thoracentesis on the right side. At present no large pleural effusions. Await pleural fluid analysis. Medications reviewed. Medications adjusted. Management plan discussed with the attending physician on the case. Discussed with the patient also. Medical decision making is of high complexity. 50 minutes spent on this patient more than 50% of time spent in direct patient care. We will follow with you.
[2018-05-20] MEDS: MONTELUKAST SODIUM 10 MG TABLET PO SCH (21:08)
[2018-05-21] MEDS: DILTIAZEM HCL/D5W 125 MG/125 ML RTUINJ IV PRN ×2 (05:11→14:23)
[2018-05-21 06:43] LABS: BLOOD UREA NITROGEN 38 mg/dL (7-20); CALCIUM 7.9 mg/dL (8.4-10.2); GLUCOSE 97 mg/dL (75-110); POTASSIUM 4.5 mmol/L (3.6-5.0); SODIUM 133.8 mmol/L (137-145)
[2018-05-21 06:48] LABS: ANION GAP 2 (5-19); CARBON DIOXIDE 30 mmol/L (22-30); CHLORIDE 102 mmol/L (98-107)
[2018-05-21] MEDS: LEVALBUTEROL HCL NEB 1.25 MG/3 ML AMPUL NEB SCH ×2 (08:50→16:27)
[2018-05-21] MEDS: BUDESONIDE NEB 0.5 MG/2 ML AMPUL NEB SCH ×2 (08:50→20:54)
[2018-05-21] MEDS: IPRATROPIUM BROMIDE 0.02% NEB 0.5 MG/2.5 ML AMPUL NEB SCH ×2 (08:50→16:27)
[2018-05-21] MEDS: ASPIRIN 81 MG TABLET, CHEWABLE PO SCH (10:46)
[2018-05-21] MEDS: BUSPIRONE HCL 10 MG TABLET PO SCH ×2 (10:47→17:44)
[2018-05-21] MEDS: ESCITALOPRAM OXALATE 10 MG TABLET PO SCH (10:59)
[2018-05-21] MEDS: FAMOTIDINE 20 MG TABLET PO SCH ×2 (11:00→21:32)
[2018-05-21] MEDS: DOCUSATE SODIUM 100 MG CAPSULE PO SCH ×2 (11:02→17:45)
[2018-05-21] MEDS: MAGNESIUM OXIDE 400 MG TABLET PO SCH ×2 (11:02→17:45)
[2018-05-21 11:10] LABS: TOTAL PROTEIN BODY FLUID 1.2 g/dL (.)
--- NOTE | 2018-05-21 12:05 | PDOC PROGRESS REPORT ---
Subjective Progress Note for:: 05/21/18 Subjective:: Seems to be doing better, more awake and alert, asked nursing/community specialist to track down her oncology records, CYTOLOGY is negative on pleural fluid. Reason For Visit: ATRIAL FIBRILLATION WITH RAPID VENTRICULAR Physical Exam Vital Signs: Temp Pulse Resp BP Pulse Ox 99.1 F 85 14 108/70 96 05/21/18 11:06 05/21/18 10:00 05/21/18 11:06 05/21/18 11:06 05/21/18 11:06 Intake & Output 05/20/18 05/21/18 05/22/18 06:59 06:59 06:59 Intake Total 599 765 Output Total 2009 1021 585 Balance -2777 -1800 -275 Weight 82.7 kg 83.9 kg General appearance: PRESENT: no acute distress, well-developed, well-nourished Head exam: PRESENT: atraumatic, normocephalic Eye exam: PRESENT: conjunctiva pink, EOMI, PERRLA. ABSENT: scleral icterus Ear exam: PRESENT: normal external ear exam Mouth exam: PRESENT: moist, tongue midline Neck exam: ABSENT: carotid bruit, JVD, lymphadenopathy, thyromegaly Respiratory exam: PRESENT: clear to auscultation [place]. ABSENT: rales, rhonchi, wheezes Cardiovascular exam: PRESENT: RRR. ABSENT: diastolic murmur, rubs, systolic murmur Pulses: PRESENT: normal dorsalis pedis pul Vascular exam: PRESENT: normal capillary refill GI/Abdominal exam: PRESENT: normal bowel sounds, soft. ABSENT: distended, guarding, mass, organolmegaly, rebound, tenderness Rectal exam: PRESENT: deferred Extremities exam: PRESENT: full ROM. ABSENT: calf tenderness, clubbing, pedal edema Neurological exam: PRESENT: alert, awake, oriented to person, oriented to place, oriented to time, oriented to situation, CN II-XII grossly intact. ABSENT: motor sensory deficit Psychiatric exam: PRESENT: appropriate affect, normal mood. ABSENT: homicidal ideation, suicidal ideation Skin exam: PRESENT: dry, intact, warm. ABSENT: cyanosis, rash Results Laboratory Results: 05/20/18 05:44 05/21/18 06:00 05/18/18 05/21/18 13:35 06:00 Sodium 133.8 L Potassium 4.5 Chloride 102 Carbon Dioxide 30 Anion Gap 2 L BUN 38 H Creatinine 1.06 Est GFR ( Amer) > 60 Est GFR (Non-Af Amer) 51 L Glucose 97 Calcium 7.9 L Fluid Total Protein 1.2 Fluid LDH 175 05/15/18 05/15/18 05/15/18 19:55 23:56 23:56 Creatine Kinase 266 H CK-MB (CK-2) 4.43 Troponin I 0.150 0.171 05/16/18 05/16/18 05/16/18 05:59 05:59 12:19 Creatine Kinase 208 H 214 H CK-MB (CK-2) 3.87 Troponin I 0.163 05/16/18 12:19 Creatine Kinase CK-MB (CK-2) 4.58 H Troponin I 0.134 Impressions: Chest CT 05/17/18 16:28 IMPRESSION: LARGE BILATERAL PLEURAL EFFUSIONS, RIGHT GREATER THAN LEFT. DIFFUSE GROUND-GLASS OPACITIES SCATTERED THROUGHOUT BOTH LUNGS PROBABLY DUE TO PULMONARY EDEMA ALTHOUGH SUPERIMPOSED PNEUMONIA ALSO POSSIBLE. Thoracentesis Ultrasound 05/17/18 17:59 IMPRESSION: SUCCESSFUL THORACENTESIS USING ULTRASOUND GUIDANCE. Assessment & Plan - Diagnosis (1) History of lymphoma Is this a current diagnosis for this admission?: Yes Plan: No evidence thus far of recurrence, will follow pt next as outpt - Time Time Spent with patient: 25-34 minutes - Inpatient Certification Based on my medical assessment, after consideration of the patient's comorbidities, presenting symptoms, or acuity I expect that the services needed warrant INPATIENT care.: Yes I certify that my determination is in accordance with my understanding of Medicare's requirements for reasonable and necessary INPATIENT services [42 CFR 412.3e].: Yes Medical Necessity: Risk of Complication if Not Cared For in Hospital
--- NOTE | 2018-05-21 12:14 | RADIOLOGY REPORT (SQ) ---
EXAM DESCRIPTION: CHEST SINGLE VIEW COMPLETED DATE/TIME: 05/21/2018 11:49 am REASON FOR STUDY: central line tip,reassess pleural effusion COMPARISON: 05/20/2018. EXAM PARAMETERS: NUMBER OF VIEWS: One view. TECHNIQUE: Single frontal radiographic view of the chest acquired. RADIATION DOSE: NA LIMITATIONS: None. FINDINGS: LUNGS AND PLEURA: Mild interstitial prominence. No opacities, masses or pneumothorax. No pleural effusion. MEDIASTINUM AND HILAR STRUCTURES: No masses. Contour normal. HEART AND VASCULAR STRUCTURES: Mild cardiomegaly. BONES: No acute findings. HARDWARE: Central line with the tip at the level of the right atrium adjacent to the diaphragm. OTHER: No other significant finding. IMPRESSION: NO CHANGE IN APPEARANCE OF THE CHEST. MILD CARDIOMEGALY WITH MILD INTERSTITIAL CHANGES. TIP OF THE CENTRAL LINE IS AT THE LEVEL OF THE RIGHT ATRIUM, UNCHANGED. TECHNICAL DOCUMENTATION: JOB ID: [id number] [employer]- All Rights Reserved Reading location - IP/workstation name: [email or web address]
--- NOTE | 2018-05-21 15:19 | PDOC PROGRESS REPORT ---
Subjective Progress Note for:: 05/21/18 Subjective:: This is a 73 year old female with a PMH of paroxysmal Afib, history of amiodarone toxicity, hypothyroidism, COPD on 2L of home O2, CAD and diastolic heart failure who initially had light headedness and was found to be in Afib with RVR by EMs (HR in the 180s). She was started on esmolol drip and was admitted to the ICU. 05/17/18: This morning, patient appeared comfortable but later had SOB and was breathing in the 30s. She was given a dose of IV Lasix and her blood pressure went down to the 50 systolic. Esmolol drip was initially held. Upon re- evaluation, she denies chest pain or SOB. She was started on neosynephrine with prompt improvement of her blood pressure and esmolol was later also resumed. She did have fine crackles bilaterally. Chest CT showed significant bilateral pleural effusions and ground glass opacities. 05/18/18: No acute event overnight. Patient just had thoracentesis and had 1L of orange colored fluid drained from the right pleural cavity. She says her breathing improved a lot after the thoracentesis. Currently saturating well on 3L via NC. Denies chest pain. She has been weaned off neosynephrine. Currently on cardizem and lasix drips. 05/19/18: No acute event overnight. Blood pressures remain stable. She has been off pressors since yesterday. Heart rate controlled on cardizem drip. On Lasix drip as well. She says she feels better today and SOB has improved after the right sided thoracentesis. Off BIPAP. She is saturating well on 3L via NC. 05/20/18: No acute issues. Off pressor. She says she feels better today. She is more awake and coherent. ABG shows respiratory alkalosis with some component of metabolic alkalosis likely from diuresis. She has been off BIPAP and continues to saturate well on 3L. CXR shows central line tip in inferior RA. Surgery informed. 05/21/18: No acute issues. Still on cardizem drip and lasix drip. HR controlled in the 70s. She continues to feel better. She has very minimal, nonproductive cough. Denies chest pain or worsening SOB. Saturating well on 3L. Reason For Visit: ATRIAL FIBRILLATION WITH RAPID VENTRICULAR Physical Exam Vital Signs: Temp Pulse Resp BP Pulse Ox 99.5 F 89 17 97/70 L 94 05/21/18 14:05 05/21/18 14:00 05/21/18 14:05 05/21/18 14:05 05/21/18 14:05 Intake & Output 05/20/18 05/21/18 05/22/18 06:59 06:59 06:59 Intake Total 599 765 125 Output Total 2009 8099 840 Balance -9721 -1888 -717 Weight 182 lb 5.156 oz 184 lb 15.485 oz General appearance: PRESENT: no acute distress, well-developed, well-nourished Head exam: PRESENT: atraumatic, normocephalic Eye exam: PRESENT: conjunctiva pink, EOMI, PERRLA. ABSENT: scleral icterus Ear exam: PRESENT: normal external ear exam Mouth exam: PRESENT: moist, tongue midline Neck exam: ABSENT: carotid bruit, JVD, lymphadenopathy, thyromegaly Results Laboratory Results: 05/20/18 05:44 05/21/18 06:00 05/18/18 05/21/18 13:35 06:00 Sodium 133.8 L Potassium 4.5 Chloride 102 Carbon Dioxide 30 Anion Gap 2 L BUN 38 H Creatinine 1.06 Est GFR ( Amer) > 60 Est GFR (Non-Af Amer) 51 L Glucose 97 Calcium 7.9 L Fluid Total Protein 1.2 Fluid LDH 175 05/15/18 05/15/18 05/15/18 19:55 23:56 23:56 Creatine Kinase 266 H CK-MB (CK-2) 4.43 Troponin I 0.150 0.171 05/16/18 05/16/18 05/16/18 05:59 05:59 12:19 Creatine Kinase 208 H 214 H CK-MB (CK-2) 3.87 Troponin I 0.163 05/16/18 12:19 Creatine Kinase CK-MB (CK-2) 4.58 H Troponin I 0.134 Impressions: Chest CT 05/17/18 16:28 IMPRESSION: LARGE BILATERAL PLEURAL EFFUSIONS, RIGHT GREATER THAN LEFT. DIFFUSE GROUND-GLASS OPACITIES SCATTERED THROUGHOUT BOTH LUNGS PROBABLY DUE TO P ULMONARY EDEMA ALTHOUGH SUPERIMPOSED PNEUMONIA ALSO POSSIBLE. Thoracentesis Ultrasound 05/17/18 17:59 IMPRESSION: SUCCESSFUL THORACENTESIS USING ULTRASOUND GUIDANCE. Chest X-Ray 05/21/18 11:09 IMPRESSION: NO CHANGE IN APPEARANCE OF THE CHEST. MILD CARDIOMEGALY WITH MILD INTERSTITIAL CHANGES. TIP OF THE CENTRAL LINE IS AT THE LEVEL OF THE RIGHT ATRIUM, UNCHANGED. Assessment & Plan - Diagnosis (1) Atrial fibrillation with RVR Is this a current diagnosis for this admission?: Yes Plan: On cardizem drip. Eliquis on hold. Currently on heparin drip. Left sided thoracentesis deferred by radiology as it was deemed not significant enough to be drained. She had right sided thoracentesis on 05/18/18. Left sided thoracentesis deferred by radiology. Eliquis on hold. Will continue heparin drip today. Will repeat chest CT tomorrow and reassess if there's a need for repeat thoracentesis. (2) Hypotension Is this a current diagnosis for this admission?: Yes Plan: Resolved. Off arturo drip since 05/18/18. (3) Pleural effusion Is this a current diagnosis for this admission?: Yes Plan: CT showed significant bilateral pleural effusions. S/P right sided thoracentesis (1L drained) on 05/18/18. Pleural fluid analysis is consistent with transudative effusion. Possible CHF- related with hypoalbuminemia contributing. Pleural fluid cytology negative. On lasix drip. Will repeat chest CT tomorrow and reassess if there's a need for repeat thoracentesis. (4) Acute kidney injury Is this a current diagnosis for this admission?: Yes Plan: Continue to improve. Creatinine has continue to trend down to 1.0. (5) Acute on chronic diastolic (congestive) heart failure Is this a current diagnosis for this admission?: Yes Plan: On Lasix drip. Cardiology following. - Time Time Spent with patient: 25-34 minutes
--- NOTE | 2018-05-21 17:44 | Progress Note ---
Provider Note Provider Note: CARDIOLOGY PROGRESS NOTE by Dr. Kristen Davis on 05/21/2018. SUBJECTIVE: The patient states that shortness of breath is much improved. But still is not back to baseline. She does have some orthopnea. She has some cough but very scanty yellowish greenish sputum. There is no chest pain or discomfort. The patient continues to be in atrial flutter. Her leg edema is much improved. There is no ventricular arrhythmias on the monitor. There is no bleeding on full dose IV heparin infusion. There is no TIA CVA symptoms. The patient's pleural fluid came back as transudate. His most likely represents a parapneumonic effusion rather than secondary to CHF PHYSICAL EXAMINATION: The patient appears to be chronically ill and a frail build. She is in no acute distress. Selected Entries 05/21/18 05/21/18 05/21/18 10:00 13:05 13:06 Temperature 99.3 F 99.5 F 99.5 F Temperature Core Source Pulse Rate 85 Heart Rate ( 89 Monitors) Respiratory 18 Rate Blood Pressure 119/60 Blood Pressure 117/61 [RIGHT FEMORAL] Blood Pressure 79 Mean [RIGHT FEMORAL] Blood Pressure Supine Position [RIGHT FEMORAL] Blood Pressure 117 Systolic [RIGHT FEMORAL] O2 Sat by Pulse 97 95 Oximetry Oxygen Delivery Nasal Cannula Method ( includes room air) Oxygen Flow 2 Rate HEAD: Atraumatic, normocephalic. EYES: Pupils equal round and reactive to light, extraocular movements intact, sclera anicteric, conjunctiva are normal. ENT: TMs normal, nares patent, oropharynx clear without exudates. Moist mucous membranes. NECK: Normal range of motion, supple without lymphadenopathy or JVD. Carotids are equal there is no bruits. There is no thyromegaly. There is no accessory muscles of respiration in use. Trachea central LUNGS: There is diminished air entry and prolonged expiration. There is occasional scattered rhonchi. There are no wet rales of CHF today. Also scattered throughout the lung there are scattered dry crackles suggestive of multifocal pneumonia.. On palpation there is no chest wall tenderness. HEART: S1-S2 is heard. S1 is of variable intensity. There is no S3 gallop. There is no S4 gallop. There is systolic murmur left sternal border and apex without radiation. There is no rub.. ABDOMEN: Soft, nontender, normoactive bowel sounds. There is no hepatosplenic megaly no guarding, no rebound. No masses appreciated. EXTREMITIES: Normal range of motion, no pitting or edema. No c lubbing or cyanosis. Femorals are well felt. There is no femoral bruits. Leg pulses are well felt. There is no DVT or cellulitis. There is no calf tenderness NEUROLOGICAL: Cranial nerves II through XII grossly intact. Normal speech, normal gait. The patient is awake alert oriented x3 with no focal deficits. PSYCH: Normal mood, normal affect. The patient judgment and insight are intact SKIN: Warm, Dry, normal turgor, no rashes or lesions noted. There is no petechia or ecchymosis 05/20/18 05/21/18 05/21/18 08:47 06:00 06:00 APTT 55.0 H Carbonic Acid 0.85 L HCO3/H2CO3 Ratio 25:1 ABG pH 7.50 H ABG pCO2 28.4 L ABG pO2 135.7 H ABG HCO3 21.6 ABG Total CO2 22.4 ABG O2 Saturation 99.0 H ABG Base Excess -0.7 FiO2 2L Sodium 133.8 L Potassium 4.5 Chloride 102 Carbon Dioxide 30 Anion Gap 2 L BUN 38 H Creatinine 1.06 Est GFR (Non-Af Amer) 51 L Glucose 97 Calcium 7.9 L Chest X-ray: Shows no evidence of pleural effusions. No acute infiltrates. IMPRESSION/RECOMMENDATION: 1. Acute respiratory failure, most likely secondary to congestive heart failure, atrial fibrillation with rapid ventricular response, COPD with exacerbation, and possibly pneumonia. 2. Recurrent atrial fibrillation with rapid ventricular response: Would not use amiodarone especially in view of the patient's abnormal TSH and elevated free T4 levels. The patient esmolol has been stopped and the patient is on a Cardizem drip and a heart rate is fairly well controlled.. 3. Hypotension most likely secondary atrial fibrillation with rapid ventricular response, and possible pneumonia/sepsis. Hypotension is resolved. The patient is off Hugh-Synephrine 4. Acute on chronic kidney disease. At present patient's kidney function is stage IV compared to her baseline of stage III A. GFR is improved, and is 51 mL/h. Nephrology on the case the patient's urine output is good.. 5. ELEVATED TROPONIN: No evidence of non-ST elevation [place] this is secondary to supply demand mismatch due to the patient's atrial fibrillation with rapid ventricular response, borderline hypotension, and in a setting of acute on chronic kidney disease. Note the patient's cardiac catheterization in October 2017 showed nonobstructive coronary artery disease. 6.. COPD: Acute exacerbation. Seems to be improving 7. Congestive heart failure secondary to atrial fibrillation with rapid ventricular response in a patient with LV diastolic dysfunction. At present the patient does not seem to be in heart failure. We will start the patient on a Lasix drip. Note that the patient seems to be much improved. 8. Pneumonia: We will observe the patient clinically. At present patient is afebrile, but has cough with yellowish green sputum production the patient is on antibiotics. 9. Non-Hodgkin's lymphoma:? Cured. The patient keeps missing getting an appointment with the oncologist. Will have oncologist see the patient. Discussed with Dr. Timothy lawrenec 10. Iatrogenic hyperthyroidism. Would recommend holding the patient's thyroid replacement. We will recheck the patient's thyroid function tests. 11. Pleural effusions. Status post thoracentesis on the right side. Pleural fluid analysis shows that this is a transudate. Most likely secondary to parapneumonic pleural effusion, and not secondary to CHF, since there is no reaccumulation of pleural effusion Medications reviewed. Medications adjusted. Management plan discussed with the attending physician on the case. Discussed with the patient also. Medical decision making is of high complexity. 50 minutes spent on this patient more than 50% of time spent in direct patient care. We will follow with you.
[2018-05-21] MEDS: CEFTRIAXONE 1 GM/D5W RTU 1 GM/50 ML RTUPB IV SCH (17:48)
[2018-05-21] MEDS: NORMAL SALINE 250 ML with FUROSEMIDE 250 MG IV PRN ×2 (17:56)
[2018-05-21] MEDS: HEPARIN SODIUM,PORCINE/D5W 25,000 UNIT/250 ML RTUINJ IV PRN (18:00)
[2018-05-21] MEDS: PHARMACY COMMUNICATION ORDER MC SCH (21:31)
[2018-05-21] MEDS: MONTELUKAST SODIUM 10 MG TABLET PO SCH (21:32)
[2018-05-21] MEDS: NORMAL SALINE 1000 ML 1,000 ML IV PRN (21:38)
[2018-05-21] MEDS ORDERED: DILTIAZEM HCL 30 MG TABLET PO ONE (22:00)
[2018-05-22] MEDS: LEVALBUTEROL HCL NEB 1.25 MG/3 ML AMPUL NEB SCH ×3 (00:36→16:11)
[2018-05-22] MEDS: IPRATROPIUM BROMIDE 0.02% NEB 0.5 MG/2.5 ML AMPUL NEB SCH ×3 (00:36→16:11)
[2018-05-22] MEDS: DILTIAZEM HCL 30 MG TABLET PO SCH ×4 (03:25→21:07)
[2018-05-22 05:51] LABS: ABSOLUTE EOSINOPHILS # (AUTO) 0.2 10^3/uL (0.0-0.6); ABSOLUTE LYMPHOCYTES (AUTO) 0.9 10^3/uL (0.5-4.7); ABSOLUTE MONOCYTES (AUTO) 0.6 10^3/uL (0.1-1.4); ABSOLUTE NEUT (AUTO) 6.8 10^3/uL (1.7-8.2); BASOPHILS % (AUTO) 0.1 % (0-2); EOSINOPHILS % (AUTO) 2.2 % (0-6); HEMATOCRIT 34.1 % (36.0-47.0); HEMOGLOBIN 11.6 g/dL (12.0-15.5); LYMPHOCYTES % (AUTO) 10.1 % (13-45); MEAN CORPUSCULAR HGB CONC 33.9 g/dL (32.0-36.0); MEAN CORPUSCULAR VOLUME 92 fl (80-97); MONOCYTES % (AUTO) 7.3 % (3-13); PLATELET COUNT 141 10^3/uL (150-450); RED BLOOD COUNT 3.73 10^6/uL (3.72-5.28); RED CELL DISTRIBUTION WIDTH 14.8 % (11.5-14.0); SEGMENTED NEUTROPHILS % (AUTO) 80.3 % (42-78); TOTAL CELLS COUNTED % (AUTO) 100 %; WHITE BLOOD COUNT 8.5 10^3/uL (4.0-10.5)
[2018-05-22 06:17] LABS: ALANINE AMINOTRANSFERASE 65 U/L (9-52); ALKALINE PHOSPHATASE 102 U/L (38-126); ASPARTATE AMINO TRANSFERASE 37 U/L (14-36); BILIRUBIN,DIRECT 0.2 mg/dL (0.0-0.4); BILIRUBIN,TOTAL 0.7 mg/dL (0.2-1.3); BLOOD UREA NITROGEN 33 mg/dL (7-20); CALCIUM 7.8 mg/dL (8.4-10.2); CHLORIDE 100 mmol/L (98-107); GLUCOSE 86 mg/dL (75-110); POTASSIUM 4.3 mmol/L (3.6-5.0); TOTAL PROTEIN 4.4 g/dL (6.3-8.2)
[2018-05-22 06:22] LABS: ANION GAP 2 (5-19); CARBON DIOXIDE 33 mmol/L (22-30); SODIUM 135.4 mmol/L (137-145)
[2018-05-22] MEDS: BUDESONIDE NEB 0.5 MG/2 ML AMPUL NEB SCH ×2 (08:49→20:54)
[2018-05-22] MEDS: BUSPIRONE HCL 10 MG TABLET PO SCH ×2 (09:52→18:55)
[2018-05-22] MEDS: ESCITALOPRAM OXALATE 10 MG TABLET PO SCH (09:53)
[2018-05-22] MEDS: DOCUSATE SODIUM 100 MG CAPSULE PO SCH ×2 (09:53→18:55)
[2018-05-22] MEDS: MAGNESIUM OXIDE 400 MG TABLET PO SCH ×2 (09:53→18:55)
[2018-05-22] MEDS: ASPIRIN 81 MG TABLET, CHEWABLE PO SCH (09:53)
[2018-05-22] MEDS: FAMOTIDINE 20 MG TABLET PO SCH ×2 (09:54→21:07)
--- NOTE | 2018-05-22 11:31 | PDOC PROGRESS REPORT ---
Subjective Progress Note for:: 05/22/18 Subjective:: Patient doing very well Reason For Visit: ATRIAL FIBRILLATION WITH RAPID VENTRICULAR Physical Exam Vital Signs: Temp Pulse Resp BP Pulse Ox 98.4 F 108 H 12 106/61 99 05/22/18 10:00 05/22/18 10:00 05/22/18 10:00 05/22/18 10:00 05/22/18 10:00 Intake & Output 05/21/18 05/22/18 05/23/18 06:59 06:59 06:59 Intake Total 815 530 Output Total 2625 2575 940 Balance -1810 -2044 -940 Weight 83.9 kg 79.9 kg General appearance: PRESENT: no acute distress, well-developed, well-nourished Head exam: PRESENT: atraumatic, normocephalic Eye exam: PRESENT: conjunctiva pink, EOMI, PERRLA. ABSENT: scleral icterus Ear exam: PRESENT: normal external ear exam Mouth exam: PRESENT: moist, tongue midline Neck exam: ABSENT: carotid bruit, JVD, lymphadenopathy, thyromegaly Respiratory exam: PRESENT: clear to auscultation glory. ABSENT: rales, rhonchi, wheezes Cardiovascular exam: PRESENT: RRR. ABSENT: diastolic murmur, rubs, systolic murmur Pulses: PRESENT: normal dorsalis pedis pul Vascular exam: PRESENT: normal capillary refill GI/Abdominal exam: PRESENT: normal bowel sounds, soft. ABSENT: distended, guarding, mass, organolmegaly, rebound, tenderness Rectal exam: PRESENT: deferred Extremities exam: PRESENT: full ROM. ABSENT: calf tenderness, clubbing, pedal edema Neurological exam: PRESENT: alert, awake, oriented to person, oriented to place, oriented to time, oriented to situation, CN II-XII grossly intact. ABSENT: motor sensory deficit Psychiatric exam: PRESENT: appropriate affect, normal mood. ABSENT: homicidal ideation, suicidal ideation Skin exam: PRESENT: dry, intact, warm. ABSENT: cyanosis, rash Results Laboratory Results: 05/22/18 05:30 05/22/18 05:30 05/22/18 05/22/18 05:30 05:30 WBC 8.5 RBC 3.73 Hgb 11.6 L Hct 34.1 L MCV 92 MCH 31.0 MCHC 33.9 RDW 14.8 H Plt Count 141 L Seg Neutrophils % 80.3 H Lymphocytes % 10.1 L Monocytes % 7.3 Eosinophils % 2.2 Basophils % 0.1 Absolute Neutrophils 6.8 Absolute Lymphocytes 0.9 Absolute Monocytes 0.6 Absolute Eosinophils 0.2 Absolute Basophils 0.0 Sodium 135.4 L Potassium 4.3 Chloride 100 Carbon Dioxide 33 H Anion Gap 2 L BUN 33 H Creatinine 0.98 Est GFR ( Amer) > 60 Est GFR (Non-Af Amer) 56 L Glucose 86 Calcium 7.8 L Total Bilirubin 0.7 AST 37 H ALT 65 H Alkaline Phosphatase 102 Total Protein 4.4 L Albumin 2.0 L 05/18/18 13:35 Pleural Fluid - Right Pleural Effusion Gram Stain - Final 05/18/18 13:35 Pleural Fluid - Right Pleural Effusion Body Fluid Culture - F inal NO AEROBIC OR ANAEROBIC ORGANISMS RECOVERED 05/15/18 05/15/18 05/15/18 19:55 23:56 23:56 Creatine Kinase 266 H CK-MB (CK-2) 4.43 Troponin I 0.150 0.171 05/16/18 05/16/18 05/16/18 05:59 05:59 12:19 Creatine Kinase 208 H 214 H CK-MB (CK-2) 3.87 Troponin I 0.163 05/16/18 12:19 Creatine Kinase CK-MB (CK-2) 4.58 H Troponin I 0.134 Impressions: Chest CT 05/17/18 16:28 IMPRESSION: LARGE BILATERAL PLEURAL EFFUSIONS, RIGHT GREATER THAN LEFT. DI FFUSE GROUND-GLASS OPACITIES SCATTERED THROUGHOUT BOTH LUNGS PROBABLY DUE TO PULMONARY EDEMA ALTHOUGH SUPERIMPOSED PNEUMONIA ALSO POSSIBLE. Thoracentesis Ultrasound 05/17/18 17:59 IMPRESSION: SUCCESSFUL THORACENTESIS USING ULTRASOUND GUIDANCE. Chest X-Ray 05/21/18 11:09 IMPRESSION: NO CHANGE IN APPEARANCE OF THE CHEST. MILD CARDIOMEGALY WITH MILD INTERSTITIAL CHANGES. TIP OF THE CENTRAL LINE IS AT THE LEVEL OF THE RIGHT ATRIUM, UNCHANGED. Assessment & Plan - Diagnosis (1) History of lymphoma Is this a current diagnosis for this admission?: Yes Plan: Patient was finally able to remember where her previous treatments were, they worked through a doctor Taylor at [facility]. Our catalyst unit operator called [facility] and noted that her history was on the previous record system. And no longer is available. Which would mean that her lymphoma was greater than 10 years ago most likely. Today I discussed with patient that because of this she does not need oncology follow-up, the likelihood that her previous non- Hodgkin's lymphoma would recur is nearly 0. Thus far no evidence of cancer at all on any studies done here. Cytology was negative, no further oncology follow-up needed at this time. Will sign off thank you for the opportunity to assist in this patient's care. - Time Time Spent with patient: 35 or more minutes
--- NOTE | 2018-05-22 14:29 | PDOC PROGRESS REPORT ---
Subjective Progress Note for:: 05/22/18 Subjective:: This is a 73 year old female with a PMH of paroxysmal Afib, history of amiodarone toxicity, hypothyroidism, SEAN, COPD on 2L of home O2, CAD and diastolic heart failure who initially had light headedness and was found to be in Afib with RVR by EMs (HR in the 180s). She was started on esmolol drip and was admitted to the ICU. 05/17/18: This morning, patient appeared comfortable but later had SOB and was breathing in the 30s. She was given a dose of IV Lasix and her blood pressure went down to the 50 systolic. Esmolol drip was initially held. Upon re- evaluation, she denies chest pain or SOB. She was started on neosynephrine with prompt improvement of her blood pressure and esmolol was later also resumed. She did have fine crackles bilaterally. Chest CT showed significant bilateral pleural effusions and ground glass opacities. 05/18/18: No acute event overnight. Patient just had thoracentesis and had 1L of orange colored fluid drained from the right pleural cavity. She says her breathing improved a lot after the thoracentesis. Currently saturating well on 3L via NC. Denies chest pain. She has been weaned off neosynephrine. Currently on cardizem and lasix drips. 05/19/18: No acute event overnight. Blood pressures remain stable. She has been off pressors since yesterday. Heart rate controlled on cardizem drip. On Lasix drip as well. She says she feels better today and SOB has improved after the right sided thoracentesis. Off BIPAP. She is saturating well on 3L via NC. 05/20/18: No acute issues. Off pressor. She says she feels better today. She is m ore awake and coherent. ABG shows respiratory alkalosis with some component of metabolic alkalosis likely from diuresis. She has been off BIPAP and continues to saturate well on 3L. CXR shows central line tip in inferior RA. Surgery informed. 05/21/18: No acute issues. Still on cardizem drip and lasix drip. HR controlled in the 70s. She continues to feel better. She has very minimal, nonproductive cough. Denies chest pain or worsening SOB. Saturating well on 3L. 05/22/18: No acute issues. Off cardizem drip. On Lasix drip. She has been switched to PO cardizem drip. Denies cough. No fever or chills. Reason For Visit: ATRIAL FIBRILLATION WITH RAPID VENTRICULAR Physical Exam Vital Signs: Temp Pulse Resp BP Pulse Ox 99.3 F 96 17 102/57 L 97 05/22/18 14:00 05/22/18 12:00 05/22/18 14:00 05/22/18 12:00 05/22/18 14:00 Intake & Output 05/21/18 05/22/18 05/23/18 06:59 06:59 06:59 Intake Total 815 530 200 Output Total 2625 2575 1315 Balance -1810 -2045 -1115 Weight 184 lb 15.485 oz 176 lb 2.389 oz General appearance: PRESENT: no acute distress, well-developed, well-nourished Head exam: PRESENT: atraumatic, normocephalic Eye exam: PRESENT: conjunctiva pink, EOMI, PERRLA. ABSENT: scleral icterus Ear exam: PRESENT: normal external ear exam Mouth exam: PRESENT: moist, tongue midline Neck exam: ABSENT: carotid bruit, JVD, lymphadenopathy, thyromegaly Respiratory exam: PRESENT: decreased breath sounds - dec BS on the bases, rhonchi. ABSENT: rales, wheezes Cardiovascular exam: PRESENT: irregular rhythm. ABSENT: bradycardia, tachycardia GI/Abdominal exam: PRESENT: normal bowel sounds, soft. ABSENT: distended, guarding, mass, organolmegaly, rebound, tenderness Rectal exam: PRESENT: deferred Neurological exam: PRESENT: alert, awake, oriented to person, oriented to place, oriented to time, oriented to situation, CN II-XII grossly intact. ABSENT: motor sensory deficit Results Laboratory Results: 05/22/18 05:30 05/22/18 05:30 05/22/18 05/22/18 05:30 05:30 WBC 8.5 RBC 3.73 Hgb 11.6 L Hct 34.1 L MCV 92 MCH 31.0 MCHC 33.9 RDW 14.8 H Plt Count 141 L Seg Neutrophils % 80.3 H Lymphocytes % 10.1 L Monocytes % 7.3 Eosinophils % 2.2 Basophils % 0.1 Absolute Neutrophils 6.8 Absolute Lymphocytes 0.9 Absolute Monocytes 0.6 Absolute Eosinophils 0.2 Absolute Basophils 0.0 Sodium 135.4 L Potassium 4.3 Chloride 100 Carbon Dioxide 33 H Anion Gap 2 L BUN 33 H Creatinine 0.98 Est GFR ( Amer) > 60 Est GFR (Non-Af Amer) 56 L Glucose 86 Calcium 7.8 L Total Bilirubin 0.7 AST 37 H ALT 65 H Alkaline Phosphatase 102 Total Protein 4.4 L Albumin 2.0 L 05/18/18 13:35 Pleural Fluid - Right Pleural Effusion Gram Stain - Final 05/18/18 13:35 Pleural Fluid - Right Pleural Effusion Body Fluid Culture - Final NO AEROBIC OR ANAEROBIC ORGANISMS RECOVERED 05/15/18 05/15/18 05/15/18 19:55 23:56 23:56 Creatine Kinase 266 H CK-MB (CK-2) 4.43 Troponin I 0.150 0.171 05/16/18 05/16/18 05/16/18 05:59 05:59 12:19 Creatine Kinase 208 H 214 H CK-MB (CK-2) 3.87 Troponin I 0.163 05/16/18 12:19 Creatine Kinase CK-MB (CK-2) 4.58 H Troponin I 0.134 Impressions: Chest CT 05/17/18 16:28 IMPRESSION: LARGE BILATERAL PLEURAL EFFUSIONS, RIGHT GREATER THAN LEFT. DIFFUSE GROUND-GLASS OPACITIES SCATTERED THROUGHOUT BOTH LUNGS PROBABLY DUE TO PULMONARY EDEMA ALTHOUGH SUPERIMPOSED PNEUMONIA ALSO POSSIBLE. Thoracentesis Ultrasound 05/17/18 17:59 IMPRESSION: SUCCESSFUL THORACENTESIS USING ULTRASOUND GUIDANCE. Chest X-Ray 05/21/18 11:09 IMPRESSION: NO CHANGE IN APPEARANCE OF THE CHEST. MILD CARDIOMEGALY WITH MILD INTERSTITIAL CHANGES. TIP OF THE CENTRAL LINE IS AT THE LEVEL OF THE RIGHT ATRIUM, UNCHANGED. Assessment & Plan - Diagnosis (1) Atrial fibrillation with RVR Is this a current diagnosis for this admission?: Yes Plan: She was initially on cardizem drip. Eliquis on hold. Currently on heparin drip. Left sided thoracentesis deferred by radiology as it was deemed not significant enough to be drained. She had right sided thoracentesis on 05/18/18. Left sided thoracentesis deferred by radiology. Eliquis on hold. On heparin drip today. Pending chest CT today to reassess if there's a need for repeat thoracentesis. Switched to PO cardizem today by cardiology. (2) Hypotension Is this a current diagnosis for this admission?: Yes Plan: Resolved. Off arturo drip since 05/18/18. (3) Pleural effusion Is this a current diagnosis for this admission?: Yes Plan: CT showed significant bilateral pleural effusions. S/P right sided thoracentesis (1L drained) on 05/18/18. Pleural fluid analysis is consistent with transudative effusion likely CHF- related with hypoalbuminemia contributory. Pleural fluid cytology negative. On lasix drip. Pending chest CT today to reassess if there's a need for repeat thoracentesis. Switch Lasix drip to IV 20 mg q8 per cardio recommendation. (4) Acute kidney injury Is this a current diagnosis for this admission?: Yes Plan: Resolved. Creatinine has continue to trend down to 0.9. (5) Acute on chronic diastolic (congestive) heart failure Is this a current diagnosis for this admission?: Yes Plan: On Lasix drip. Switch to Lasix 20 mg IV q8. - Time Time Spent with patient: 25-34 minutes
--- NOTE | 2018-05-22 15:34 | RADIOLOGY REPORT (SQ) ---
EXAM DESCRIPTION: CT CHEST WITHOUT COMPLETED DATE/TIME: 05/22/2018 2:58 pm REASON FOR STUDY: reassess bilateral effusion,s/p right sided thora COMPARISON: 05/17/2018. TECHNIQUE: CT scan performed of the chest without intravenous contrast. Images reviewed with lung, soft tissue and bone windows. Reconstructed coronal and sagittal MPR images reviewed. All images st ored on PACS. All CT scanners at this facility use dose modulation, iterative reconstruction, and/or weight based d osing when appropriate to reduce radiation dose to as low as reasonably achievable (ALARA). [facility]: Dose Right [facility]: CareDose [facility]: Dose Right [facility]: Teradose 4D [facility]: Smart MetricStream RADIATION DOSE: CT Rad equipment meets quality standard of care and radiation dose reduction techniq ues were employed. CTDIvol: 9.4 mGy. DLP: 329 mGy-cm. mGy. LIMITATIONS: No technical limitations. FINDINGS: LUNGS AND PLEURA: Moderate right pleural effusion. Small left pleural effusion. Basilar atelectasis. HILAR AND MEDIASTINAL STRUCTURES: No identified masses or abnormal nodes. No obvious aneurysm. HEART AND VASCULAR STRUCTURES: No aneurysm. No pericardial effusion. UPPER ABDOMEN: No significant findings. Limited exam. THYROID AND OTHER SOFT TISSUES: No masses. No adenopathy. BONES: No significant finding. HARDWARE: Central line. OTHER: No other significant findings. IMPRESSION: MODERATE RIGHT PLEURAL EFFUSION AND SMALL LEFT PLEURAL EFFUSION. BASILAR ATELECTASIS. TECHNICAL DOCUMENTATION: JOB ID: [id number] Quality ID # [id number]: Final reports with documentation of one or more dose reduction techniques (e.g., Au tomated exposure control, adjustment of the mA and/or kV according to patient size, use of iterative reconstruction technique) 2010 [employer]- All Rights Reserved Reading location - IP/workstation name: [email or web address]
--- NOTE | 2018-05-22 17:12 | PDOC CONSULTATION ---
Consultation Consult Date: 05/22/18 Attending physician:: DEE QUILES Consult reason:: pleural effusion History of Present Illness Admission Date/PCP: 05/15/18 22:49 History of Present Illness: RADHA LAGUERRE is a 73 year old female Past Medical History Cardiac Medical History: Reports: Atrial Fibrillation, Congestive Heart Failure - Diastolic, Hypertension, Heart Murmur Pulmonary Medical History: Reports: Chronic Obstructive Pulmonary Disease (COPD), Sleep Apnea Endocrine Medical History: Reports: Hypothyroidism Denies: Diabetes Mellitus Type 1, Diabetes Mellitus Type 2 Renal/ Medical History: Denies: Chronic Kidney Disease, Nephrolithiasis Malignancy Medical History: Reports: None, Lymphoma GI Medical History: Reports: Gastroesophageal Reflux Disease Denies: Cirrhosis, Hepatitis Musculoskeltal Medical History: Denies: Fibromyalgia, Gout Skin Medical History: Denies: Eczema, Psoriasis Psychiatric Medical History: Reports: Depression Denies: Alcohol Dependency, Substance Abuse, Tobacco Dependency Traumatic Medical History: Reports: None Hematology: Denies: Anemia, Bleeding Tendencies Infectious Medical History: Reports: None Past Surgical History Past Surgical History: Reports: Cholecystectomy, Gastric Bypass Surgery, Tonsillectomy, Other - panniiculectomy Social History Information Source: [facility] Records Lives with: Family - Her daughter Smoking Status: Never Smoker Frequency of Alcohol Use: Occasional Hx Recreational Drug Use: Yes Drugs: Marijuana Hx Prescription Drug Abuse: No - Advance Directive Resuscitation Status: Full Code Family History Family History: COPD Parental Family History Reviewed: Yes Children Family History Reviewed: Yes Sibling(s) Family History Reviewed.: Yes Medication/Allergy Home Medications: Atorvastatin Calcium [Lipitor 80 mg Tablet] 80 mg PO QHS 05/16/18 Buspirone HCl [Buspar 15 mg Tablet] 15 mg PO BID 05/16/18 Docusate Sodium [Colace 100 mg Capsule] 100 mg PO BID 05/16/18 Duloxetine HCl [Cymbalta] 30 mg PO DAILY 05/16/18 Escitalopram Oxalate [Lexapro] 20 mg PO DAILY 05/16/18 Fluticasone/Vilanterol [Breo Ellipta 100-25 Mcg INH] 1 puff IH DAILY 05/16/18 Furosemide [Lasix 20 mg Tablet] 20 mg PO DAILY 05/16/18 Levothyroxine Sodium 125 mcg PO Q6AM 05/16/18 Melatonin [Melatonin 3 mg Tablet] 6 mg PO QHS 05/16/18 Montelukast Sodium [Singulair 10 mg Tablet] 10 mg PO QPM 05/16/18 Ondansetron HCl [Zofran 4 mg Tablet] 4 mg PO QIDP PRN 05/16/18 Oxycodone Myristate [Xtampza ER] 13.5 mg PO Q12 05/16/18 Pantoprazole Sodium [Protonix] 40 mg PO QAM 05/16/18 Sennosides [Laxative] 50 mg PO DAILYP PRN 05/16/18 Suvorexant [Belsomra] 5 mg PO QHS 05/16/18 Trazodone HCl [Desyrel 50 mg Tablet] 50 mg PO QHS 05/16/18 Vitafusion Probiotic 2 tab PO DAILY 05/16/18 Vitafusion [employer] 2 tab PO DAILY 05/16/18 Allergies/Adverse Reactions: codeine [Codeine] Allergy (Verified 09/11/17 01:39) haloperidol [From Haldol] Allergy (Verified 09/29/17 04:08) Change in behavior haloperidol lactate [From Haldol] Allergy (Verified 09/29/17 04:09) Change in behavior Sulfa (Sulfonamide Antibiotics) Allergy (Verified 09/29/17 04:08) rash; itching Beta-Blockers (Beta-Adrenergic Bloc Adverse Reaction (Verified 09/29/17 04:08) Bradycardia zolpidem tartrate [From Ambien] Adverse Reaction (Verified 09/29/17 04:08) sleep walk Physical Exam Vital Signs: Temp Pulse Resp BP Pulse Ox 98.4 F 108 H 12 106/61 99 05/22/18 10:00 05/22/18 10:00 05/22/18 10:00 05/22/18 10:00 05/22/18 10:00 Intake & Output 05/21/18 05/22/18 05/23/18 06:59 06:59 06:59 Intake Total 815 530 Output Total 7915 8405 949 Balance -1809 -2044 -0 Weight 83.9 kg 79.9 kg Results Laboratory Results: 05/22/18 05:30 05/22/18 05:30 05/22/18 05/22/18 05:30 05:30 WBC 8.5 RBC 3.73 Hgb 11.6 L Hct 34.1 L MCV 92 MCH 31.0 MCHC 33.9 RDW 14.8 H Plt Count 141 L Seg Neutrophils % 80.3 H Lymphocytes % 10.1 L Monocytes % 7.3 Eosinophils % 2.2 Basophils % 0.1 Absolute Neutrophils 6.8 Absolute Lymphocytes 0.9 Absolute Monocytes 0.6 Absolute Eosinophils 0.2 Absolute Basophils 0.0 Sodium 135.4 L Potassium 4.3 Chloride 100 Carbon Dioxide 33 H Anion Gap 2 L BUN 33 H Creatinine 0.98 Est GFR ( Amer) > 60 Est GFR (Non-Af Amer) 56 L Glucose 86 Calcium 7.8 L Total Bilirubin 0.7 AST 37 H ALT 65 H Alkaline Phosphatase 102 Total Protein 4.4 L Albumin 2.0 L 05/18/18 13:35 Pleural Fluid - Right Pleural Effusion Gram Stain - Final 05/18/18 13:35 Pleural Fluid - Right Pleural Effusion Body Fluid Culture - Final NO AEROBIC OR ANAEROBIC ORGANISMS RECOVERED 05/15/18 05/15/18 05/15/18 19:55 23:56 23:56 Creatine Kinase 266 H CK-MB (CK-2) 4.43 Troponin I 0.150 0.171 05/16/18 05/16/18 05/16/18 05:59 05:59 12:19 Creatine Kinase 208 H 214 H CK-MB (CK-2) 3.87 Troponin I 0.163 05/16/18 12:19 Creatine Kinase CK-MB (CK-2) 4.58 H Troponin I 0.134 Impressions: Chest CT 05/17/18 16:28 IMPRESSION: LARGE BILATERAL PLEURAL EFFUSIONS, RIGHT GREATER THAN LEFT. DIFFUSE GROUND-GLASS OPACITIES SCATTERED THROUGHOUT BOTH LUNGS PROBABLY DUE TO PULMONARY EDEMA ALTHOUGH SUPERIMPOSED PNEUMONIA ALSO POSSIBLE. Thoracentesis Ultrasound 05/17/18 17:59 IMPRESSION: SUCCESSFUL THORACENTESIS USING ULTRASOUND GUIDANCE. Chest X-Ray 05/21/18 11:09 IMPRESSION: NO CHANGE IN APPEARANCE OF THE CHEST. MILD CARDIOMEGALY WITH MILD INTERSTITIAL CHANGES. TIP OF THE CENTRAL LINE IS AT THE LEVEL OF THE RIGHT ATRIUM, UNCHANGED. Assessment & Plan - Diagnosis (1) Acute on chronic diastolic (congestive) heart failure Is this a current diagnosis for this admission?: Yes (2) Atrial fibrillation with RVR Is this a current diagnosis for this admission?: Yes Plan: as per cardiology (3) COPD (chronic obstructive pulmonary disease) Qualifiers: COPD type: unspecified COPD Qualified Code(s): J44.9 - Chronic obstructive pulmonary disease, unspecified Is this a current diagnosis for this admission?: Yes Plan: Generic Name Dose Route Start Last Admin Trade Name Freq PRN Reason Stop Dose Admin Levalbuterol HCl 1.25 mg 05/16/18 08:00 05/22/18 16:11 Xopenex Neb 1.25 Mg/3 Ml Ampul NEB 06/15/18 07:59 1.25 mg RTQ8 MAYDA Montelukast Sodium 10 mg 05/16/18 22:00 05/21/18 21:32 Singulair 10 Mg Tablet PO 06/15/18 21:59 10 mg QHS MAYDA Ipratropium Mclean 0.5 mg 05/16/18 08:00 05/22/18 16:11 Atrovent 0.02% Neb 0.5 Mg/2.5 Ml Ampul NEB 06/15/18 07:59 0.5 mg RTQ8 MAYDA Budesonide 0.5 mg 05/16/18 08:00 05/22/18 08:49 Pulmicort Neb 0.5 Mg/2 Ml Ampul NEB 06/15/18 07:59 0.5 mg RTQ12 MAYDA Patient Own Medication 1 puff 05/16/18 10:00 Fluticasone/Vilanterol [Breo Ellipta 100-25 Mcg Inh] IH 06/15/18 09:59 .DAILY MAYDA Levalbuterol HCl 1.25 mg 05/16/18 00:10 05/17/18 19:07 Xopenex Neb 1.25 Mg/3 Ml Ampul NEB 06/15/18 00:09 1.25 mg RTQ4HP PRN FOR WHEEZING suggest dc budesonide(ICCS) covered via BREO (4) Pleural effusion Is this a current diagnosis for this admission?: Yes Plan: (TP:1.2/4.4 = 0.27 LDH: 175/471 = 0.37) malnutrition decreased oncontic pressure ?? cardiac output during afib w/rvr - Time Total Critical Time (Minutes): 55
[2018-05-22] MEDS: CEFTRIAXONE 1 GM/D5W RTU 1 GM/50 ML RTUPB IV SCH (18:54)
[2018-05-22] MEDS: APIXABAN 2.5 MG TABLET PO SCH (18:57)
[2018-05-22] MEDS: MONTELUKAST SODIUM 10 MG TABLET PO SCH (21:07)
[2018-05-22] MEDS: FUROSEMIDE INJ/PF 20 MG/2 ML SDV IV SCH (21:07)
--- NOTE | 2018-05-22 23:24 | Progress Note ---
Provider Note Provider Note: CARDIOLOGY PROGRESS NOTE by Dr. Kristen Israel on 05/22/2018. SUBJECTIVE: The patient denies any shortness of breath. There is no cough or sputum production. In spite of reaccumulation of fluid in the right side of her lung she has no orthopnea. There is no PND. She is in atrial flutter with controlled ventricular response. There is no bleeding on Eliquis. There is no TIA CVA symptoms. There is no ventricular arrhythmia seen on the monitor. Her leg edema is much improved. PHYSICAL EXAMINATION: The patient is a frail build, appears chronically ill. But in no acute distress. Selected Entries 05/22/18 16:00 Temperature 99.3 F Temperature Core Source Pulse Rate 108 H Blood Pressure 118/74 [RIGHT FEMORAL] Blood Pressure 88 Mean [RIGHT FEMORAL] Blood Pressure Supine Position [RIGHT FEMORAL] O2 Sat by Pulse 96 Oximetry Oxygen Delivery Room Air Method ( includes room air) HEAD: Atraumatic, normocephalic. EYES: Pupils equal round and reactive to light, extraocular movements intact, sclera anicteric, conjunctiva are normal. ENT: TMs normal, nares patent, oropharynx clear without exudates. Moist mucous membranes. NECK: Normal range of motion, supple without lymphadenopathy or JVD. Carotids are equal there is no bruits. There is no thyromegaly. There is no accessory muscles of respiration in use. Trachea central LUNGS: There is diminished air entry and prolonged expiration. There is absent breath sounds and dullness in the right base greater than the left base. There is no rhonchi rales or wheezing. On palpation there is no chest wall tenderness. HEART: S1-S2 is heard. S1 is of variable intensity. There is no S3 gallop. There is no S4 gallop. There is systolic murmur left sternal border and apex without radiation. There is no rub.. ABDOMEN: Soft, nontender, normoactive bowel sounds. There is no hepatosplenic megaly no guarding, no rebound. No masses appreciated. EXTREMITIES: Normal range of motion, no pitting or edema. No clubbing or cyanosis. Femorals are well felt. There is no femoral bruits. Leg pulses are well felt. There is no DVT or cellulitis. There is no calf tenderness NEUROLOGICAL: Cranial nerves II through XII grossly intact. Normal speech, normal gait. The patient is awake alert oriented x3 with no focal deficits. PSYCH: Normal mood, normal affect. The patient judgment and insight are intact SKIN: Warm, Dry, normal turgor, no rashes or lesions noted. There is no petechia or ecchymosis 05/22/18 05/22/18 05:30 05:30 WBC 8.5 RBC 3.73 Hgb 11.6 L Hct 34.1 L MCV 92 MCH 31.0 MCHC 33.9 RDW 14.8 H Plt Count 141 L Seg Neutrophils % 80.3 H Lymphocytes % 10.1 L Sodium 135.4 L Potassium 4.3 Chloride 100 Carbon Dioxide 33 H Anion Gap 2 L BUN 33 H Creatinine 0.98 Est GFR (Non-Af Amer) 56 L Glucose 86 Calcium 7.8 L Total Bilirubin 0.7 Direct Bilirubin 0.2 Neonat Total Bilirubin Not Reportable Neonat Direct Bilirubin Not Reportable Neonat Indirect Bili Not Reportable AST 37 H ALT 65 H Alkaline Phosphatase 102 Total Protein 4.[address] of the chest shows moderate right pleural effusion and small left pleural effusion. The patient's 24-hour intake is 535 mL. Her 24-hour output is 2575 mL IMPRESSION/RECOMMENDATION: 1. Acute respiratory failure, most likely secondary to congestive heart failure, atrial fibrillation with rapid ventricular response, COPD with exacerbation, and possibly pneumonia. 2. Recurrent atrial fibrillation with rapid ventricular response. The patient presented atrial flutter with a controlled ventricular response: Would not use amiodarone especially in view of the patient's abnormal TSH and elevated free T4 levels. The patient is on p.o. Cardizem, with IV Cardizem drip being discontinued. Ventricular response for the atrial flutter is well controlled. The patient's IV heparin has been discontinued, and the patient's Eliquis has been restarted. 3. Hypotension most likely secondary atrial fibrillation with rapid ventricular response, and possible pneumonia/sepsis. Hypotension is resolved. The patient is off Hugh-Synephrine 4. Acute on chronic kidney disease. At present patient's kidney function is back to stage IIIa, with a GFR of 56mL/min. Nephrology on the case the patient's urine output is good.. 5. ELEVATED TROPONIN: No evidence of non-ST elevation VA this is secondary to supply demand mismatch due to the patient's atrial fibrillation with rapid ventricular response, borderline hypotension, and in a setting of acute on chronic kidney disease. Note the patient's cardiac catheterization in October 2017 showed nonobstructive coronary artery disease. 6.. COPD: Acute exacerbation. Seems to be back to baseline 7. Congestive heart failure secondary to atrial fibrillation with rapid ventricular response in a patient with LV diastolic dysfunction. At present the patient does not seem to be in heart failure. There is recurrence of moderate right pleural effusion, consistent with the pleural effusion being secondary to congestive heart failure due to LV diastolic dysfunction. The patient is off the Lasix drip will watch. 8. Pneumonia: We will observe the patient clinically. At present patient is afebrile, but has cough with yellowish green sputum production the patient is on antibiotics. 9. Non-Hodgkin's lymphoma:? Cured. The patient keeps missing getting an appointment with the oncologist. Will have oncologist see the patient. Discussed with Dr. Timothy lawrence 10. Iatrogenic hyperthyroidism. Would recommend holding the patient's thyroid replacement. We will recheck the patient's thyroid function tests. 11. Pleural effusions. Status post thoracentesis on the right side. Pleural fluid analysis shows that this is a transudate. Most likely secondary to diastolic heart failure, since there is reaccumulation of moderate right pleural effusion. Medications reviewed. Medications adjusted. Management plan discussed with the attending physician on the case. Discussed with the patient also. Medical decision making is of high complexity. 40 minutes spent on this patient more than 50% of time spent in direct patient care. We will follow with you.
[2018-05-23] MEDS ORDERED: DILTIAZEM HCL 30 MG TABLET PO SCH (01:00)
[2018-05-23] MEDS: IPRATROPIUM BROMIDE 0.02% NEB 0.5 MG/2.5 ML AMPUL NEB SCH ×3 (01:18→16:24)
[2018-05-23] MEDS: LEVALBUTEROL HCL NEB 1.25 MG/3 ML AMPUL NEB SCH ×3 (01:18→16:24)
[2018-05-23] MEDS: DILTIAZEM HCL 30 MG TABLET PO SCH ×2 (05:42→11:50)
[2018-05-23] MEDS: FUROSEMIDE INJ/PF 20 MG/2 ML SDV IV SCH ×3 (05:42→22:17)
[2018-05-23 06:14] LABS: ABSOLUTE EOSINOPHILS # (AUTO) 0.1 10^3/uL (0.0-0.6); ABSOLUTE MONOCYTES (AUTO) 0.7 10^3/uL (0.1-1.4); ABSOLUTE NEUT (AUTO) 6.3 10^3/uL (1.7-8.2); BASOPHILS % (AUTO) 0.1 % (0-2); EOSINOPHILS % (AUTO) 1.7 % (0-6); HEMATOCRIT 32.2 % (36.0-47.0); HEMOGLOBIN 10.9 g/dL (12.0-15.5); LYMPHOCYTES % (AUTO) 12.1 % (13-45); MEAN CORPUSCULAR HEMOGLOBIN 30.9 pg (27.0-33.4); MEAN CORPUSCULAR HGB CONC 33.7 g/dL (32.0-36.0); MEAN CORPUSCULAR VOLUME 92 fl (80-97); MONOCYTES % (AUTO) 8.2 % (3-13); PLATELET COUNT 164 10^3/uL (150-450); RED BLOOD COUNT 3.51 10^6/uL (3.72-5.28); RED CELL DISTRIBUTION WIDTH 14.5 % (11.5-14.0); SEGMENTED NEUTROPHILS % (AUTO) 77.9 % (42-78); TOTAL CELLS COUNTED % (AUTO) 100 %; WHITE BLOOD COUNT 8.1 10^3/uL (4.0-10.5)
[2018-05-23 06:17] LABS: APPEARANCE,URINE CLEAR; BILIRUBIN,URINE NEGATIVE (NEGATIVE); COLOR,URINE YELLOW; GLUCOSE, URINE NEGATIVE (NEGATIVE); KETONES,URINE NEGATIVE (NEGATIVE); LEUKOCYTE ESTERASE,URINE NEGATIVE (NEGATIVE); NITRITE,URINE NEGATIVE (NEGATIVE); PROTEIN,URINE NEGATIVE (NEGATIVE); UROBILINOGEN,URINE NEGATIVE mg/dL (<2.0)
[2018-05-23 06:22] LABS: INTERNATIONAL RATION (INR) 0.98; PROTHROMBIN TIME 13.5 SEC (11.4-15.4)
[2018-05-23 06:23] LABS: PARTIAL THROMBOPLASTIN TIME 31.9 SEC (23.5-35.8)
[2018-05-23 06:32] LABS: ALANINE AMINOTRANSFERASE 67 U/L (9-52); ALBUMIN 1.9 g/dL (3.5-5.0); ALKALINE PHOSPHATASE 93 U/L (38-126); ASPARTATE AMINO TRANSFERASE 33 U/L (14-36); BILIRUBIN,DIRECT 0.2 mg/dL (0.0-0.4); BILIRUBIN,TOTAL 0.6 mg/dL (0.2-1.3); BLOOD UREA NITROGEN 30 mg/dL (7-20); GLUCOSE 89 mg/dL (75-110); POTASSIUM 4.3 mmol/L (3.6-5.0); TOTAL PROTEIN 4.3 g/dL (6.3-8.2)
[2018-05-23 06:37] LABS: CARBON DIOXIDE 33 mmol/L (22-30); CHLORIDE 98 mmol/L (98-107); SODIUM 133.9 mmol/L (137-145)
[2018-05-23 06:41] LABS: ANION GAP 3 (5-19)
[2018-05-23] MEDS: BUDESONIDE NEB 0.5 MG/2 ML AMPUL NEB SCH ×2 (08:21→19:22)
[2018-05-23] MEDS: ASPIRIN 81 MG TABLET, CHEWABLE PO SCH (10:08)
[2018-05-23] MEDS: ESCITALOPRAM OXALATE 10 MG TABLET PO SCH (10:08)
[2018-05-23] MEDS: MAGNESIUM OXIDE 400 MG TABLET PO SCH ×2 (10:08→17:44)
[2018-05-23] MEDS: BUSPIRONE HCL 10 MG TABLET PO SCH ×2 (10:08→17:45)
[2018-05-23] MEDS: DOCUSATE SODIUM 100 MG CAPSULE PO SCH ×2 (10:08→17:45)
[2018-05-23] MEDS: APIXABAN 2.5 MG TABLET PO SCH ×2 (10:08→17:44)
[2018-05-23] MEDS: FAMOTIDINE 20 MG TABLET PO SCH ×2 (10:08→22:17)
[2018-05-23] MEDS: ONDANSETRON HCL INJ/PF 4 MG/2 ML SDV IV PRN (12:08)
[2018-05-23] MEDS ORDERED: ONDANSETRON HCL INJ/PF 4 MG/2 ML SDV IV PRN (14:30)
--- NOTE | 2018-05-23 16:28 | PDOC PROGRESS REPORT ---
Subjective Progress Note for:: 05/23/18 Subjective:: This is a 73 year old female with a PMH of paroxysmal Afib, history of amiodarone toxicity, hypothyroidism, SEAN, COPD on 2L of home O2, CAD and diastolic heart failure who initially had light headedness and was found to be in Afib with RVR by EMs (HR in the 180s). She was started on esmolol drip and was admitted to the ICU. 05/17/18: This morning, patient appeared comfortable but later had SOB and was breathing in the 30s. She was given a dose of IV Lasix and her blood pressure went down to the 50 systolic. Esmolol drip was initially held. Upon re- evaluation, she denies chest pain or SOB. She was started on neosynephrine with prompt improvement of her blood pressure and esmolol was later also resumed. She did have fine crackles bilaterally. Chest CT showed significant bilateral pleural effusions and ground glass opacities. 05/18/18: No acute event overnight. Patient just had thoracentesis and had 1L of orange colored fluid drained from the right pleural cavity. She says her breathing improved a lot after the thoracentesis. Currently saturating well on 3L via NC. Denies chest pain. She has been weaned off neosynephrine. Currently on cardizem and lasix drips. 05/19/18: No acute event overnight. Blood pressures remain stable. She has been off pressors since yesterday. Heart rate controlled on cardizem drip. On Lasix drip as well. She says she feels better today and SOB has improved after the right sided thoracentesis. Off BIPAP. She is saturating well on 3L via NC. 05/20/18: No acute issues. Off pressor. She says she feels better today. She is m ore awake and coherent. ABG shows respiratory alkalosis with some component of metabolic alkalosis likely from diuresis. She has been off BIPAP and continues to saturate well on 3L. CXR shows central line tip in inferior RA. Surgery informed. 05/21/18: No acute issues. Still on cardizem drip and lasix drip. HR controlled in the 70s. She continues to feel better. She has very minimal, nonproductive cough. Denies chest pain or worsening SOB. Saturating well on 3L. 05/22/18: No acute issues. Off cardizem drip. On Lasix drip. She has been switched to PO cardizem drip. Denies cough. No fever or chills. 05/23/18: She continues to improve. Off cardizem and Lasix drips. No cough, fever or chills. Downgrade to IMCU. Will have PT evaluate patient as well. Reason For Visit: ATRIAL FIBRILLATION WITH RAPID VENTRICULAR Physical Exam Vital Signs: Temp Pulse Resp BP Pulse Ox 99.5 F 84 16 111/73 99 05/23/18 16:00 05/23/18 08:32 05/23/18 14:30 05/23/18 13:56 05/23/18 14:30 Intake & Output 05/22/18 05/23/18 05/24/18 06:59 06:59 06:59 Intake Total 530 1138 Output Total 2575 2465 450 Balance -2045 -1327 -450 Weight 176 lb 2.389 oz 171 lb 1.259 oz General appearance: PRESENT: no acute distress, well-developed, well-nourished Head exam: PRESENT: atraumatic, normocephalic Eye exam: PRESENT: conjunctiva pink, EOMI, PERRLA. ABSENT: scleral icterus Ear exam: PRESENT: normal external ear exam Mouth exam: PRESENT: moist, tongue midline Neck exam: ABSENT: carotid bruit, JVD, lymphadenopathy, thyromegaly Respiratory exam: PRESENT: decreased breath sounds, rhonchi - slightly dec BS on the bases. ABSENT: rales, wheezes Cardiovascular exam: PRESENT: irregular rhythm. ABSENT: systolic murmur Pulses: PRESENT: normal dorsalis pedis pul Rectal exam: PRESENT: deferred Neurological exam: PRESENT: alert, awake, oriented to person, oriented to place, oriented to time, oriented to situation, CN II-XII grossly intact. ABSENT: motor sensory deficit Results Laboratory Results: 05/23/18 05:30 05/23/18 05:30 05/23/18 05/23/18 05/23/18 05:30 05:30 05:30 WBC 8.1 RBC 3.51 L Hgb 10.9 L Hct 32.2 L MCV 92 MCH 30.9 MCHC 33.7 RDW 14.5 H Plt Count 164 Seg Neutrophils % 77.9 Lymphocytes % 12.1 L Monocytes % 8.2 Eosinophils % 1.7 Basophils % 0.1 Absolute Neutrophils 6.3 Absolute Lymphocytes 1.0 Absolute Monocytes 0.7 Absolute Eosinophils 0.1 Absolute Basophils 0.0 Sodium 133.9 L Potassium 4.3 Chloride 98 Carbon Dioxide 33 H Anion Gap 3 L BUN 30 H Creatinine 0.97 Est GFR ( Amer) > 60 Est GFR (Non-Af Amer) 56 L Glucose 89 Calcium 8.0 L Total Bilirubin 0.6 AST 33 ALT 67 H Alkaline Phosphatase 93 Total Protein 4.3 L Albumin 1.9 L Urine Color YELLOW Urine Appearance CLEAR Urine pH 6.0 Ur Specific [place] 1.010 Urine Protein NEGATIVE Urine Glucose (UA) NEGATIVE Urine Ketones NEGATIVE Urine Blood NEGATIVE Urine Nitrite NEGATIVE Ur Leukocyte Esterase NEGATIVE Urine WBC (Auto) 4 Urine RBC (Auto) 1 05/17/18 22:48 Blood Blood Culture - Final NO GROWTH IN 5 DAYS 05/17/18 22:05 Blood Blood Culture - Final NO GROWTH IN 5 DAYS 05/15/18 05/15/18 05/15/18 19:55 23:56 23:56 Creatine Kinase 266 H CK-MB (CK-2) 4.43 Troponin I 0.150 0.171 05/16/18 05/16/18 05/16/18 05:59 05:59 12:19 Creatine Kinase 208 H 214 H CK-MB (CK-2) 3.87 Troponin I 0.163 05/16/18 12:19 Creatine Kinase CK-MB (CK-2) 4.58 H Troponin I 0.134 Impressions: Thoracentesis Ultrasound 05/17/18 17:59 IMPRESSION: SUCCESSFUL THORACENTESIS USING ULTRASOUND GUIDANCE. Chest X-Ray 05/21/18 11:09 IMPRESSION: NO CHANGE IN APPEARANCE OF THE CHEST. MILD CARDIOMEGALY WITH MILD INTERSTITIAL CHANGES. TIP OF THE CENTRAL LINE IS AT THE LEVEL OF THE RIGHT ATRIUM, UNCHANGED. Chest CT 05/22/18 07:00 IMPRESSION: MODERATE RIGHT PLEURAL EFFUSION AND SMALL LEFT PLEURAL EFFUSION. BASILAR ATELECTASIS. Assessment & Plan - Diagnosis (1) Atrial fibrillation with RVR Is this a current diagnosis for this admission?: Yes Plan: She was initially on cardizem drip. Eliquis on hold. Currently on heparin drip. Left sided thoracentesis deferred by radiology as it was deemed not significant enough to be drained. She had right sided thoracentesis on 05/18/18. On PO cardizem. Heparin drip d/mitzy. Switched back to Eliquis. (2) Pleural effusion Is this a current diagnosis for this admission?: Yes Plan: CT showed significant bilateral pleural effusions. S/P right sided thoracentesis (1L drained) on 05/18/18. Pleural fluid analysis is consistent with transudative effusion likely CHF- related with hypoalbuminemia contributory. Pleural fluid cytology negative. Repeat chest CT showed minimal left sided pleural effusion and moderate right effusion significantly improved after right sided thoracentesis. Lasix drip switched to IV 20 mg q8. Discontinue Rocephin, pneumonia unlikely to have caused effusion. (3) Hypotension Is this a current diagnosis for this admission?: Yes Plan: Resolved. Off arturo drip since 05/18/18. (4) Acute kidney injury Is this a current diagnosis for this admission?: Yes Plan: Resolved. Creatinine now back to baseline. (5) Acute on chronic diastolic (congestive) heart failure Is this a current diagnosis for this admission?: Yes Plan: Secondary to Afib with RVR. Continue PO cardizem for HR control. Lasix drip switched to Lasix 20 mg IV q8. - Time Time Spent with patient: 25-34 minutes
[2018-05-23] MEDS: CEFTRIAXONE 1 GM/D5W RTU 1 GM/50 ML RTUPB IV SCH (17:44)
[2018-05-23] MEDS: DILTIAZEM HCL 60 MG TABLET PO SCH ×2 (17:44→23:56)
[2018-05-23] MEDS: MONTELUKAST SODIUM 10 MG TABLET PO SCH (22:17)
--- NOTE | 2018-05-23 22:26 | Progress Note ---
Provider Note Provider Note: Cardiology PROGRESS NOTE by Dr. Kristen Israel on 05/23/2018. SUBJECTIVE: The patient continues to be in atrial flutter. At times her heart rate goes into the 1 teens. She denies any chest pain or discomfort. She denies shortness of breath. There is no PND orthopnea. Her leg edema is much improved. She has low-grade temperature. But denies any symptoms suggestive of UTI. There is no cough or sputum production. There is no bleeding on Eliquis. There is no TIA CVA symptoms. Her chronic hoarseness of voice continues, without any changes. SUBJECTIVE: The patient is a frail build, and appears to be chronically ill. She is in no acute distress. Selected Entries 05/23/18 05/23/18 05/23/18 08:20 08:30 09:00 Temperature 99.0 F 99.0 F Heart Rate ( 84 97 Monitors) Respiratory Rate Blood Pressure Blood Pressure Mean O2 Sat by Pulse 100 Oximetry Oxygen Delivery Nasal Cannula Method ( includes room air) Oxygen Flow 2 Rate 05/23/18 05/23/18 09:55 09:56 Temperature Heart Rate ( Monitors) Respiratory 17 23 H Rate Blood Pressure 100/88 H Blood Pressure 92 Mean O2 Sat by Pulse 100 Oximetry Oxygen Delivery Method ( includes room air) Oxygen Flow Rate HEAD: Atraumatic, normocephalic. EYES: Pupils equal round and reactive to light, extraocular movements intact, sclera anicteric, conjunctiva are normal. ENT: TMs normal, nares patent, oropharynx clear without exudates. Moist mucous membranes. NECK: Normal range of motion, supple without lymphadenopathy or JVD. Carotids are equal there is no bruits. There is no thyromegaly. There is no accessory muscles of respiration in use. Trachea central LUNGS: There is diminished air entry and prolonged expiration. There is absent breath sounds and dullness in the right base greater than the left base. There is no rhonchi rales or wheezing. On palpation there is no chest wall tenderness. HEART: S1-S2 is heard. S1 is of variable intensity. There is no S3 gallop. There is no S4 gallop. There is systolic murmur left sternal border and apex without radiation. There is no rub.. ABDOMEN: Soft, nontender, normoactive bowel sounds. There is no hepatosplenic megaly no guarding, no rebound. No masses appreciated. EXTREMITIES: Normal range of motion, no pitting or edema. No clubbing or cyanosis. Femorals are well felt. There is no femoral bruits. Leg pulses are well felt. There is no DVT or cellulitis. There is no calf tenderness NEUROLOGICAL: Cranial nerves II through XII grossly intact. Normal speech, normal gait. The patient is awake alert oriented x3 with no focal deficits. PSYCH: Normal mood, normal affect. The patient judgment and insight are intact SKIN: Warm, Dry, normal turgor, no rashes or lesions noted. There is no petechia or ecchymosis 05/23/18 05/23/18 05:30 05:30 WBC 8.1 RBC 3.51 L Hgb 10.9 L Hct 32.2 L MCV 92 MCH 30.9 MCHC 33.7 RDW 14.5 H Plt Count 164 Seg Neutrophils % 77.9 Lymphocytes % 12.1 L Sodium 133.9 L Potassium 4.3 Chloride 98 Carbon Dioxide 33 H Anion Gap 3 L BUN 30 H Creatinine 0.97 Est GFR (Non-Af Amer) 56 L Glucose 89 Calcium 8.0 L Total Bilirubin 0.6 Direct Bilirubin 0.2 Neonat Total Bilirubin Not Reportable Neonat Direct Bilirubin Not Reportable Neonat Indirect Bili Not Reportable AST 33 ALT 67 H Alkaline Phosphatase 93 Total Protein 4.3 L Albumin 1.9 L The patient's 24-hour intake is 1138 mL. Her 24-hour output is 2465 mL IMPRESSION/RECOMMENDATION: 1. Acute respiratory failure, most likely secondary to congestive heart failure, atrial fibrillation with rapid ventricular response, COPD with exacerbation, and possibly pneumonia. 2. Recurrent atrial fibrillation with rapid ventricular response. The patient presented atrial flutter with a controlled ventricular response: Would not use amiodarone especially in view of the patient's abnormal TSH and elevated free T4 levels. The patient is on p.o. Cardizem, with IV Cardizem drip being discontinued. Ventricular response for the atrial flutter is well controlled. The patient's IV heparin has been discontinued, and the patient's Eliquis has been restarted. 3. Hypotension most likely secondary atrial fibrillation with rapid ventricular response, and possible pneumonia/sepsis. Hypotension has resolved. The patient is off Hugh-Synephrine 4. Acute on chronic kidney disease. At present patient's kidney function is back to stage IIIa, with a GFR of 56mL/min. Nephrology on the case the patient's urine output is good.. 5. ELEVATED TROPONIN: No evidence of non-ST elevation TN this is secondary to supply demand mismatch due to the patient's atrial fibrillation with rapid ventricular response, borderline hypotension, and in a setting of acute on chronic kidney disease. Note the patient's cardiac catheterization in October 2017 showed nonobstructive coronary artery disease. 6.. COPD: Acute exacerbation. Seems to be back to baseline 7. Congestive heart failure secondary to atrial fibrillation with rapid ventricular response in a patient with LV diastolic dysfunction. At present the patient does not seem to be in heart failure. There is recurrence of moderate right pleural effusion, consistent with the pleural effusion being secondary to congestive heart failure due to LV diastolic dysfunction. The patient is off the Lasix drip will watch. 8. Pneumonia: We will observe the patient clinically. At present patient is afebrile, but has cough with yellowish green sputum production the patient is on antibiotics. 9. Non-Hodgkin's lymphoma:? Cured. The patient keeps missing getting an appointment with the oncologist. Will have oncologist see the patient. Discussed with Dr. Timothy lawrence 10. Iatrogenic hyperthyroidism. Would recommend holding the patient's thyroid replacement. We will recheck the patient's thyroid function tests. 11. Pleural effusions. Status post thoracentesis on the right side. Pleural fluid analysis shows that this is a transudate. Most likely secondary to diastolic heart failure, since there is reaccumulation of moderate right pleural effusion. There is no increase in the pleural effusion. Consider enteral nutritional supplements for the patient, to boost her nutritional intake. Medications reviewed. Medications adjusted. Management plan discussed with the attending physician on the case. Discussed with the patient also. Medical decision making is of high complexity. 40 minutes spent on this patient more than 50% of time spent in direct patient care. We will follow with you.
[2018-05-24] MEDS: IPRATROPIUM BROMIDE 0.02% NEB 0.5 MG/2.5 ML AMPUL NEB SCH ×4 (00:10→23:28)
[2018-05-24] MEDS: LEVALBUTEROL HCL NEB 1.25 MG/3 ML AMPUL NEB SCH ×4 (00:11→23:28)
[2018-05-24] MEDS: FUROSEMIDE INJ/PF 20 MG/2 ML SDV IV SCH ×3 (05:40→21:24)
[2018-05-24] MEDS: DILTIAZEM HCL 60 MG TABLET PO SCH ×3 (05:40→17:38)
[2018-05-24 06:36] LABS: ARTERIAL BLOOD BASE EXCESS 10.2 mmol/L; ARTERIAL BLOOD H2CO3 1.21 mmol/L (1.05-1.35); ARTERIAL BLOOD HCO3 33.5 mmol/L (20-24); ARTERIAL BLOOD O2 SATURATION 98.9 % (94-98); ARTERIAL BLOOD PCO2 40.1 mmHg (35-45); ARTERIAL BLOOD PH 7.54 (7.35-7.45); ARTERIAL BLOOD PO2 130.9 mmHg (80-100); ARTERIAL BLOOD TOTAL CO2 34.7 mmol/L (21-25)
[2018-05-24 06:37] LABS: ARTERIAL BLOOD FIO2 2L
[2018-05-24] MEDS: BUDESONIDE NEB 0.5 MG/2 ML AMPUL NEB SCH ×2 (07:53→19:56)
[2018-05-24] MEDS: BUSPIRONE HCL 10 MG TABLET PO SCH (11:00)
[2018-05-24] MEDS: DOCUSATE SODIUM 100 MG CAPSULE PO SCH ×2 (11:00→17:38)
[2018-05-24] MEDS: ESCITALOPRAM OXALATE 10 MG TABLET PO SCH (11:00)
[2018-05-24] MEDS: ASPIRIN 81 MG TABLET, CHEWABLE PO SCH (11:00)
[2018-05-24] MEDS: MAGNESIUM OXIDE 400 MG TABLET PO SCH ×2 (11:00→17:38)
[2018-05-24] MEDS: FAMOTIDINE 20 MG TABLET PO SCH ×2 (11:00→21:25)
[2018-05-24] MEDS: APIXABAN 2.5 MG TABLET PO SCH ×2 (11:04→17:39)
[2018-05-24 14:00] LABS: BLOOD UREA NITROGEN 29 mg/dL (7-20); CALCIUM 8.1 mg/dL (8.4-10.2); CHLORIDE 99 mmol/L (98-107); GLUCOSE 106 mg/dL (75-110); POTASSIUM 4.3 mmol/L (3.6-5.0)
[2018-05-24 14:05] LABS: CARBON DIOXIDE 34 mmol/L (22-30); SODIUM 133.3 mmol/L (137-145)
[2018-05-24 14:07] LABS: ANION GAP 0 (5-19)
--- NOTE | 2018-05-24 16:33 | PDOC PROGRESS REPORT ---
Subjective Progress Note for:: 05/24/18 Subjective:: No adverse events overnight. No new complaints. She was resting comfortably whenever came into the room. Her voice was somewhat hoarse. She denied any chest pain or shortness of breath. Reason For Visit: ATRIAL FIBRILLATION WITH RAPID VENTRICULAR Physical Exam Vital Signs: Temp Pulse Resp BP Pulse Ox 97.5 F 90 16 90/55 L 100 05/24/18 12:06 05/24/18 14:00 05/24/18 12:06 05/24/18 12:06 05/24/18 12:06 Intake & Output 05/23/18 05/24/18 05/25/18 06:59 06:59 06:59 Intake Total 1138 50 Output Total 2465 1225 Balance -1327 -1175 Weight 77.6 kg 76.2 kg General appearance: PRESENT: no acute distress, cooperative, disheveled, obese Head exam: ABSENT: atraumatic - She had a old bruise on her left cheek bone Respiratory exam: PRESENT: decreased breath sounds, symmetrical, unlabored. ABSENT: accessory muscle use, crackles, prolonged expiratory phas, rhonchi, tachypnea, wheezes Cardiovascular exam: PRESENT: irregular rhythm, systolic murmur - A very harsh 2 out of 6 murmur Vascular exam: PRESENT: normal capillary refill GI/Abdominal exam: PRESENT: normal bowel sounds, soft. ABSENT: distended, guarding, rebound, tenderness Extremities exam: PRESENT: pedal edema, +1 edema. ABSENT: clubbing Musculoskeletal exam: PRESENT: normal inspection. ABSENT: deformity Neurological exam: PRESENT: alert, awake, oriented to person, oriented to place, oriented to situation Psychiatric exam: PRESENT: appropriate affect, normal mood Skin exam: PRESENT: dry, pallor, warm Results Laboratory Results: 05/23/18 05:30 05/24/18 13:30 05/24/18 05/24/18 06:00 13:30 Carbonic Acid 1.21 HCO3/H2CO3 Ratio 27:1 ABG pH 7.54 H ABG pCO2 40.1 ABG pO2 130.9 H ABG HCO3 33.5 H ABG O2 Saturation 98.9 H ABG Base Excess 10.2 FiO2 2L Sodium 133.3 L Potassium 4.3 Chloride 99 Carbon Dioxide 34 H Anion Gap 0 L BUN 29 H Creatinine 0.86 Est GFR ( Amer) > 60 Est GFR (Non-Af Amer) > 60 Glucose 106 Calcium 8.1 L 05/15/18 05/15/18 05/15/18 19:55 23:56 23:56 Creatine Kinase 266 H CK-MB (CK-2) 4.43 Troponin I 0.150 0.171 05/16/18 05/16/18 05/16/18 05:59 05:59 12:19 Creatine Kinase 208 H 214 H CK-MB (CK-2) 3.87 Troponin I 0.163 05/16/18 12:19 Creatine Kinase CK-MB (CK-2) 4.58 H Troponin I 0.134 Impressions: Thoracentesis Ultrasound 05/17/18 17:59 IMPRESSION: SUCCESSFUL THORACENTESIS USING ULTRASOUND GUIDANCE. Chest X-Ray 05/21/18 11:09 IMPRESSION: NO CHANGE IN APPEARANCE OF THE CHEST. MILD CARDIOMEGALY WITH MILD INTERSTITIAL CHANGES. TIP OF THE CENTRAL LINE IS AT THE LEVEL OF THE RIGHT ATRIUM, UNCHANGED. Chest CT 05/22/18 07:00 IMPRESSION: MODERATE RIGHT PLEURAL EFFUSION AND SMALL LEFT PLEURAL EFFUSION. BASILAR ATELECTASIS. Assessment & Plan - Diagnosis (1) Acute on chronic diastolic (congestive) heart failure Is this a current diagnosis for this admission?: Yes Plan: Responding well to diuretics. She still has some fluid overload so we will continue IV Lasix. Had to hold a dose this morning because of her blood pressure. (2) Atrial fibrillation with RVR Is this a current diagnosis for this admission?: Yes Plan: Currently rate controlled. She is also anticoagulated. Will have to assess her fall risk prior to discharge, as it may be too high of a risk to send her home on anticoagulation. (3) Chronic respiratory failure with hypoxia, on home O2 therapy Is this a current diagnosis for this admission?: Yes Plan: Stable on her current level of oxygen support - Time Time Spent with patient: 25-34 minutes
[2018-05-24] MEDS: CEFTRIAXONE 1 GM/D5W RTU 1 GM/50 ML RTUPB IV SCH (17:37)
[2018-05-24] MEDS: MONTELUKAST SODIUM 10 MG TABLET PO SCH (21:25)
--- NOTE | 2018-05-24 23:28 | Progress Note ---
Provider Note Provider Note: CARDIOLOGY PROGRESS NOTE by Dr. Kristen Israel on 05/24/18. Subjective: The patient denies any chest pain or discomfort. There is no shortness of breath there is no PND orthopnea. Her leg edema is resolved. There is no cough or sputum production. The patient continues to be in atrial flutter with a controlled ventricular response. There is no chest pain or discomfort. There is no bleeding on Eliquis. There is no TIA CVA symptoms.
[2018-05-25] MEDS: DILTIAZEM HCL 60 MG TABLET PO SCH ×3 (00:27→12:28)
[2018-05-25] MEDS: FUROSEMIDE INJ/PF 20 MG/2 ML SDV IV SCH ×2 (05:38→14:52)
[2018-05-25 06:15] LABS: HEMATOCRIT 29.5 % (36.0-47.0); MEAN CORPUSCULAR HEMOGLOBIN 31.1 pg (27.0-33.4); MEAN CORPUSCULAR HGB CONC 33.8 g/dL (32.0-36.0); MEAN CORPUSCULAR VOLUME 92 fl (80-97); PLATELET COUNT 190 10^3/uL (150-450); RED CELL DISTRIBUTION WIDTH 14.3 % (11.5-14.0); WHITE BLOOD COUNT 7.3 10^3/uL (4.0-10.5)
[2018-05-25] MEDS: LEVALBUTEROL HCL NEB 1.25 MG/3 ML AMPUL NEB SCH ×2 (07:41→16:30)
[2018-05-25] MEDS: BUDESONIDE NEB 0.5 MG/2 ML AMPUL NEB SCH (07:41)
[2018-05-25] MEDS: IPRATROPIUM BROMIDE 0.02% NEB 0.5 MG/2.5 ML AMPUL NEB SCH ×2 (07:41→16:29)
[2018-05-25] MEDS: ESCITALOPRAM OXALATE 10 MG TABLET PO SCH (10:12)
[2018-05-25] MEDS: FAMOTIDINE 20 MG TABLET PO SCH (10:12)
[2018-05-25] MEDS: MAGNESIUM OXIDE 400 MG TABLET PO SCH (10:12)
[2018-05-25] MEDS: ASPIRIN 81 MG TABLET, CHEWABLE PO SCH (10:13)
[2018-05-25] MEDS: BUSPIRONE HCL 10 MG TABLET PO SCH (10:13)
[2018-05-25] MEDS: APIXABAN 2.5 MG TABLET PO SCH (10:13)
[2018-05-25] MEDS: DOCUSATE SODIUM 100 MG CAPSULE PO SCH (10:13)
--- NOTE | 2018-05-25 15:31 | PDOC DISCHARGE SUMMARY ---
General - Admit/Disc Date/PCP Admission Date/Primary Care Provider: 05/15/18 22:49 Discharge Date: 05/25/18 - Discharge Diagnosis (1) Acute on chronic diastolic (congestive) heart failure Is this a current diagnosis for this admission?: Yes Summary: This was secondary to rapid atrial fibrillation. We got her heart rate under control and she responded well to diuretics. (2) Atrial fibrillation with RVR Is this a current diagnosis for this admission?: Yes Summary: Not sure as the exact etiology of her rapid ventricular response, but she had had an increase in her Synthroid dose not too long ago, and she was a little bit hyperthyroid. We held her Synthroid while she was here. We have got her on Cardizem and Eliquis and she will follow-up with Dr. Davis. (3) Chronic respiratory failure with hypoxia, on home O2 therapy Is this a current diagnosis for this admission?: Yes Summary: She has been stable on her usual home level of O2. (4) Iatrogenic hyperthyroidism Is this a current diagnosis for this admission?: Yes Summary: As noted above, she had had an increase in her Synthroid dose, which may have been a bit too much for her. We have reduced her dose. She will need a repeat TSH in approximately 4 weeks to determine whether or not this dose is appropr iate. - Additional Information Resuscitation Status: Full Code Discharge Diet: Cardiac Discharge Activity: Activity As Tolerated, Balance Activity w/Rest, Weigh Daily Prescriptions: Apixaban [Eliquis 2.5 mg Tablet] 2.5 mg PO BID #60 tablet Diltiazem HCl [Cardizem Cd 240 mg Capsule.cr] 1 cap.sr PO DAILY #30 tab.sr Levothyroxine Sodium 100 mcg PO DAILY #30 tablet Home Medications: Atorvastatin Calcium [Lipitor 80 mg Tablet] 80 mg PO QHS 05/16/18 Buspirone HCl [Buspar 15 mg Tablet] 15 mg PO BID 05/16/18 Docusate Sodium [Colace 100 mg Capsule] 100 mg PO BID 05/16/18 Duloxetine HCl [Cymbalta] 30 mg PO DAILY 05/16/18 Escitalopram Oxalate [Lexapro] 20 mg PO DAILY 05/16/18 Fluticasone/Vilanterol [Breo Ellipta 100-25 Mcg INH] 1 puff IH DAILY 05/16/18 Furosemide [Lasix 20 mg Tablet] 20 mg PO DAILY 05/16/18 Melatonin [Melatonin 3 mg Tablet] 6 mg PO QHS 05/16/18 Montelukast Sodium [Singulair 10 mg Tablet] 10 mg PO QPM 05/16/18 Ondansetron HCl [Zofran 4 mg Tablet] 4 mg PO QIDP PRN 05/16/18 Oxycodone Myristate [Xtampza ER] 13.5 mg PO Q12 05/16/18 Pantoprazole Sodium [Protonix] 40 mg PO QAM 05/16/18 Sennosides [Laxative] 50 mg PO DAILYP PRN 05/16/18 Suvorexant [Belsomra] 5 mg PO QHS 05/16/18 Vitafusion Probiotic 2 tab PO DAILY 05/16/18 Vitafusion [employer] 2 tab PO DAILY 05/16/18 Apixaban [Eliquis 2.5 mg Tablet] 2.5 mg PO BID #60 tablet 05/25/18 Diltiazem HCl [Cardizem Cd 240 mg Capsule.cr] 1 cap.sr PO DAILY #30 tab.sr 05/25/18 Levothyroxine Sodium 100 mcg PO DAILY #30 tablet 05/25/18 History of Present Illness History of Present Illness: RADHA LAGUERRE is a 73 year old female who presented to the emergency room with a four-day history of gradually worsening lightheadedness with associated weakness and mildly increased dyspnea. Her lightheadedness had become severe by the late evening of the day of admission. She admits that she has had prior similar episodes when her atrial fibrillation was uncontrolled. She recently was taken off of amiodarone because it was causing problems for her lungs but she can think of no other aggravating or ameliorating factors for her current problems. She summoned EMS to her residence and was found to have a heart rate in the 180s (atrial fibrillation). She was given a bolus dose of Cardizem 25 mg followed by an additional 10 mg bolus without effect on her heart rate. In the emergency room she was treated with an amiodarone bolus and infusion with moderate success in controlling her heart rate. She was subsequently admitted to the ICU for further evaluation and treatment Dr. Davis has been consulted and plans for an esmolol bolus and infusion have been made. Hospital Course Hospital Course: Her heart rate ultimately wound up being controlled by IV Cardizem, she was able to be transitioned over to oral Cardizem. She says she has fallen twice in the last several months, and she normally gets around at home with a single-point cane. She will be getting around with a walker at home. Her daughter did not want her to go to a rehab center, and felt confident that she could be managed at home as long as she had a walker instead of her cane. There are several people at home that can be with her whenever she tries to ambulate, so we decided to continue with anticoagulation. She responded well to diuretics, and it was believed that her uncontrolled atrial fibrillation caused her volume overload. Her rapid atrial fibrillation may have been triggered by iatrogenic hyperthyroidism, and we reduced her Synthroid dose. She will need to have a TSH repeated in 4-6 weeks. Her labs and examination were reassuring and she was discharged today in good condition. Physical Exam Vital Signs: Temp Pulse Resp BP Pulse Ox 97.7 F 101 H 16 97/65 L 99 05/25/18 12:38 05/25/18 12:38 05/25/18 12:38 05/25/18 12:38 05/25/18 12:38 Intake & Output 05/24/18 05/25/18 05/26/18 06:59 06:59 06:59 Intake Total 50 494 Output Total 1225 1350 Balance -1175 -856 Weight 76.2 kg 75.8 kg General appearance: PRESENT: no acute distress, cooperative, disheveled, obese Head exam: ABSENT: atraumatic - She had a old bruise on her left cheek bone Respiratory exam: PRESENT: decreased breath sounds, symmetrical, unlabored. ABSENT: accessory muscle use, crackles, prolonged expiratory phas, rhonchi, tachypnea, wheezes Cardiovascular exam: PRESENT: irregular rhythm, systolic murmur - A very harsh 2 out of 6 murmur Vascular exam: PRESENT: normal capillary refill GI/Abdominal exam: PRESENT: normal bowel sounds, soft. ABSENT: distended, guarding, rebound, tenderness Extremities exam: PRESENT: pedal edema, +1 edema. ABSENT: clubbing Musculoskeletal exam: PRESENT: normal inspection. ABSENT: deformity Neurological exam: PRESENT: alert, awake, oriented to person, oriented to place, oriented to situation Psychiatric exam: PRESENT: appropriate affect, normal mood Skin exam: PRESENT: dry, pallor, warm Results Laboratory Results: 05/25/18 05:45 05/24/18 13:30 05/25/18 05:45 WBC 7.3 RBC 3.20 L Hgb 10.0 L Hct 29.5 L MCV 92 MCH 31.1 MCHC 33.8 RDW 14.3 H Plt Count 190 05/15/18 05/15/18 05/15/18 19:55 23:56 23:56 Creatine Kinase 266 H CK-MB (CK-2) 4.43 Troponin I 0.150 0.171 05/16/18 05/16/18 05/16/18 05:59 05:59 12:19 Creatine Kinase 208 H 214 H CK-MB (CK-2) 3.87 Troponin I 0.163 05/16/18 12:19 Creatine Kinase CK-MB (CK-2) 4.58 H Troponin I 0.134 Impressions: Thoracentesis Ultrasound 05/17/18 17:59 IMPRESSION: SUCCESSFUL THORACENTESIS USING ULTRASOUND GUIDANCE. Chest X-Ray 05/21/18 11:09 IMPRESSION: NO CHANGE IN APPEARANCE OF THE CHEST. MILD CARDIOMEGALY WITH MILD INTERSTITIAL CHANGES. TIP OF THE CENTRAL LINE IS AT THE LEVEL OF THE RIGHT ATRIUM, UNCHANGED. Chest CT 05/22/18 07:00 IMPRESSION: MODERATE RIGHT PLEURAL EFFUSION AND SMALL LEFT PLEURAL EFFUSION. BASILAR ATELECTASIS. Qualifiers - * PATIENT BEING DISCHARGED WITH ANY OF THE FOLLOWING DIAGNOSIS: No
[2018-05-25 16:16] VITALS: BP 113/65
== END 2018-05-25 18:03 | disposition home health service (06) | DRG 308 ==
LOC: ER 19:04 → EH 22:49 → ICU 05-16 00:39 → 3S 05-23 21:13
PROVIDERS: ADMIT Emergency Medicine; ATTEND Emergency Medicine
PROC: 02HV33Z Insertion of Infusion Device into Superior Vena Cava, Percutaneous Approach (ICD-10-PCS; 2018-05-16)
PROC: B548ZZA Ultrasonography of Superior Vena Cava, Guidance (ICD-10-PCS; 2018-05-16)
PROC: 04HK03Z Insertion of Infusion Device into Right Femoral Artery, Open Approach (ICD-10-PCS; principal; 2018-05-17)
PROC: 4A133B1 Monitoring of Arterial Pressure, Peripheral, Percutaneous Approach (ICD-10-PCS; 2018-05-17)
PROC: 5A09357 Assistance with Respiratory Ventilation, Less than 24 Consecutive Hours, Continuous Positive Airway Pressure (ICD-10-PCS; 2018-05-17)
PROC: 0W993ZX Drainage of Right Pleural Cavity, Percutaneous Approach, Diagnostic (ICD-10-PCS; 2018-05-18)
DX: I48.91 Unspecified atrial fibrillation (principal); I50.33 Acute on chronic diastolic (congestive) heart failure; J96.11 Chronic respiratory failure with hypoxia; J90 Pleural effusion, not elsewhere classified; N17.9 Acute kidney failure, unspecified; I11.0 Hypertensive heart disease with heart failure; E05.80 Other thyrotoxicosis without thyrotoxic crisis or storm; J44.9 Chronic obstructive pulmonary disease, unspecified; G47.30 Sleep apnea, unspecified; E03.9 Hypothyroidism, unspecified; K21.9 Gastro-esophageal reflux disease without esophagitis; F32.9 Major depressive disorder, single episode, unspecified; Z79.899 Other long term (current) drug therapy; Z79.02 Long term (current) use of antithrombotics/antiplatelets; Z90.49 Acquired absence of other specified parts of digestive tract; Z98.84 Bariatric surgery status; Z88.2 Allergy status to sulfonamides; Z88.8 Allergy status to other drugs, medicaments and biological substances; Z85.72 Personal history of non-Hodgkin lymphomas
CPT/HCPCS: 32555; 36415; 71045; 71250; 80048; 80053; 80061; 81001; 82542; 82550; 82553; 82803; 83615; 83735; 84155; 84157; 84439; 84443; 84481; 84484; 85025; 85027; 85610; 85730; 87040; 87070; 87075; 87205; 88112; 88305; 89050; 93005; 93010; 94640; 94660; 96361; 96365; 96367; 99291; C1751; J0153; J0282; J0696; J1160; J1642; J1644; J1940; J2370; J2405; J3480; J3490; J7030; J7040; J7050; J7060

== ENCOUNTER 2018-07-05 15:54 | Inpatient (IN) | payer MEDICARE ==
[2018-07-05] MEDS ORDERED: NORMAL SALINE 1000 ML 1,000 ML IV ONE (16:35)
[2018-07-05 16:43] LABS: ABSOLUTE EOSINOPHILS # (AUTO) 0.1 10^3/uL (0.0-0.6); ABSOLUTE LYMPHOCYTES (AUTO) 1.8 10^3/uL (0.5-4.7); ABSOLUTE MONOCYTES (AUTO) 0.7 10^3/uL (0.1-1.4); ABSOLUTE NEUT (AUTO) 5.6 10^3/uL (1.7-8.2); BASOPHILS % (AUTO) 0.6 % (0-2); EOSINOPHILS % (AUTO) 1.2 % (0-6); HEMATOCRIT 35.7 % (36.0-47.0); HEMOGLOBIN 11.8 g/dL (12.0-15.5); LYMPHOCYTES % (AUTO) 22.4 % (13-45); MEAN CORPUSCULAR HEMOGLOBIN 30.6 pg (27.0-33.4); MEAN CORPUSCULAR VOLUME 93 fl (80-97); MONOCYTES % (AUTO) 8.2 % (3-13); PLATELET COUNT 198 10^3/uL (150-450); RED BLOOD COUNT 3.84 10^6/uL (3.72-5.28); RED CELL DISTRIBUTION WIDTH 14.5 % (11.5-14.0); SEGMENTED NEUTROPHILS % (AUTO) 67.6 % (42-78); TOTAL CELLS COUNTED % (AUTO) 100 %; WHITE BLOOD COUNT 8.2 10^3/uL (4.0-10.5)
[2018-07-05 16:53] LABS: PROTHROMBIN TIME 13.7 SEC (11.4-15.4)
--- NOTE | 2018-07-05 17:00 | RADIOLOGY REPORT (SQ) ---
EXAM DESCRIPTION: CHEST SINGLE VIEW COMPLETED DATE/TIME: 07/05/2018 4:50 pm REASON FOR STUDY: altered mental status COMPARISON: 05/21/2018 EXAM PARAMETERS: NUMBER OF VIEWS: One view. TECHNIQUE: Single frontal radiographic view of the chest acquired. RADIATION DOSE: NA LIMITATIONS: None. FINDINGS: LUNGS AND PLEURA: Cannot exclude a minimal pleural effusion on either side. MEDIASTINUM AND HILAR STRUCTURES: No masses. Contour normal. HEART AND VASCULAR STRUCTURES: Cardiomegaly. No pulmonary edema. BONES: No acute findings. HARDWARE: None in the chest. OTHER: No other significant finding. IMPRESSION: Cardiomegaly without pulmonary edema. Cannot exclude minimal pleural fluid. TECHNICAL DOCUMENTATION: JOB ID: [id number] [employer]- All Rights Reserved Reading location - IP/workstation name: [email or web address]
[2018-07-05 17:04] LABS: ALANINE AMINOTRANSFERASE 107 U/L (9-52); ALBUMIN 2.4 g/dL (3.5-5.0); ALKALINE PHOSPHATASE 125 U/L (38-126); ANION GAP 6 (5-19); ASPARTATE AMINO TRANSFERASE 127 U/L (14-36); BILIRUBIN,DIRECT 0.4 mg/dL (0.0-0.4); BILIRUBIN,TOTAL 1.2 mg/dL (0.2-1.3); BLOOD UREA NITROGEN 21 mg/dL (7-20); CALCIUM 8.4 mg/dL (8.4-10.2); CARBON DIOXIDE 31 mmol/L (22-30); CHLORIDE 103 mmol/L (98-107); GLUCOSE 84 mg/dL (75-110); POTASSIUM 3.5 mmol/L (3.6-5.0); SODIUM 139.6 mmol/L (137-145); TOTAL PROTEIN 5.3 g/dL (6.3-8.2)
[2018-07-05 17:27] LABS: APPEARANCE,URINE TURBID; BILIRUBIN,URINE NEGATIVE (NEGATIVE); COLOR,URINE AMBER; GLUCOSE, URINE NEGATIVE (NEGATIVE); KETONES,URINE NEGATIVE (NEGATIVE); LEUKOCYTE ESTERASE,URINE LARGE (NEGATIVE); NITRITE,URINE NEGATIVE (NEGATIVE); PROTEIN,URINE 30 mg/dL (NEGATIVE); URINE SPECIFIC GRAVITY 1.016
[2018-07-05] MEDS ORDERED: CEFTRIAXONE 1 GM/D5W RTU 1 GM/50 ML RTUPB IV ONE (17:52)
[2018-07-05 18:53] LABS: VENOUS BLOOD BASE EXCESS 2.9 mmol/L; VENOUS BLOOD HCO3 29.4 mmol/L (20-32); VENOUS BLOOD PCO2 52.7 mmHg (35-63); VENOUS BLOOD PH 7.36 (7.30-7.42)
--- NOTE | 2018-07-05 19:21 | ER Document Report ---
ED General - General Chief Complaint: Low Blood Pressure Stated Complaint: URINARY SYMPTOMS Time Seen by Provider: 07/05/18 16:35 Primary Care Provider: EWNDY DAVILA MD [Primary Care Provider] - Follow up as needed TRAVEL OUTSIDE OF THE [place] IN LAST 30 DAYS: No - HPI Notes: Patient presents to the emergency department for evaluation. She was sent in by the [facility] for possible low blood pressure and confusion. They were concerned about the possibility of urinary tract infection. The patient denies any pain. She states she has felt slightly tired. She also relates a diminished appetite. - Related Data Allergies/Adverse Reactions: codeine [Codeine] Allergy (Verified 07/05/18 16:18) haloperidol [From Haldol] Allergy (Verified 07/05/18 16:18) Change in behavior haloperidol lactate [From Haldol] Allergy (Verified 07/05/18 16:18) Change in behavior Sulfa (Sulfonamide Antibiotics) Allergy (Verified 07/05/18 16:18) rash; itching Beta-Blockers (Beta-Adrenergic Bloc Adverse Reaction (Verified 07/05/18 16:18) Bradycardia zolpidem tartrate [From Ambien] Adverse Reaction (Verified 07/05/18 16:18) sleep walk Past Medical History - General Information source: Patient, Transfer Record - Social History Smoking Status: Never Smoker Chew tobacco use (# tins/day): No Frequency of alcohol use: None Drug Abuse: None Family History: COPD Patient has suicidal ideation: No Patient has homicidal ideation: No - Past Medical History Cardiac Medical History: Reports: Hx Atrial Fibrillation, Hx Congestive Heart Failure - Diastolic, Hx Hypertension, Hx Heart Murmur Pulmonary Medical History: Reports: Hx COPD, Hx Pneumonia, Hx Sleep Apnea Endocrine Medical History: Reports: Hx Diabetes Mellitus Type 2, Hx Hypothyroidism. Denies: Hx Diabetes Mellitus Type 1 Renal/ Medical History: Denies: Hx Peritoneal Dialysis Malignancy Medical History: Reports: Hx Lymphoma GI Medical History: Reports: Hx Gastroesophageal Reflux Disease. Denies: Hx Cirrhosis, Hx Hepatitis Musculoskeletal Medical History: Denies Hx Fibromyalgia, Denies Hx Gout Skin Medical History: Denies Hx Eczema, Denies Hx Psoriasis Psychiatric Medical History: Reports: Hx Depression Infectious Medical History: Denies: Hx Hepatitis Past Surgical History: Reports: Hx Abdominal Surgery - GBP, Hx Cholecystectomy, Hx Gastric Bypass Surgery, Hx Thyroid Surgery, Hx Tonsillectomy, Other - panniiculectomy - Immunizations Hx Diphtheria, Pertussis, Tetanus Vaccination: Yes Hx Pneumococcal Vaccination: 06/03/13 Review of Systems - Review of Systems Constitutional: Malaise, Weakness EENT: No symptoms reported Cardiovascular: No symptoms reported Respiratory: No symptoms reported Gastrointestinal: See HPI Genitourinary: No symptoms reported Musculoskeletal: No symptoms reported Skin: No symptoms reported Neurological/Psychological: No symptoms reported Physical Exam - Vital signs Vitals: Temp Pulse Ox 98.3 F 96 07/05/18 15:55 07/05/18 15:55 Notes: Blood pressure 88/60, heart rate 110, 92% on room air, 98.4 temperature orally. Repeat blood pressure 102/50. - Notes Notes: Vital signs reviewed, please refer to chart. Patient is normocephalic, atraumatic. Pupils equal round, reactive to light. Neck is supple without meningismus. Heart is regular rate and rhythm. Lungs are clear to auscultation bilaterally. Abdomen is soft, nontender, normoactive bowel sounds throughout. Extremities without cyanosis, clubbing. 2+ pitting pretibial edema bilaterally, no posterior calf tenderness, peripheral pulses are equal. Skin is warm and dry. Patient is awake, alert, neurological exam is nonfocal. Course - Re-evaluation Re-evalutation: 07/05/18 19:22 Patient presents to the emergency department for evaluation. Her laboratory investigations reveal a normal white blood cell count but her lactate is elevated. Given her elevated heart rate, low blood pressure, and positive urine findings, the patient meets urosepsis criteria. She is given IV fluids. Cultures are pending at this time. She is given IV ceftriaxone. No prior urine cultures at this facility. I spoke with Dr. Alex, he will admit the patient for further care. - Vital Signs Vital signs: Temp Pulse Resp BP Pulse Ox 98.3 F 12 102/59 L 90 L 07/05/18 15:55 07/05/18 18:15 07/05/18 18:15 07/05/18 18:01 - Laboratory Result Diagrams: 07/05/18 16:30 07/05/18 16:30 Laboratory results interpreted by me: 07/05/18 07/05/18 07/05/18 16:30 16:30 16:30 Hgb 11.8 L Hct 35.7 L RDW 14.5 H Potassium 3.5 L Carbon Dioxide 31 H BUN 21 H Est GFR (Non-Af Amer) 53 L Lactic Acid 2.5 H AST 127 H ALT 107 H Total Protein 5.3 L Albumin 2.4 L Urine Protein Urine Blood Urine Urobilinogen Ur Leukocyte Esterase 07/05/18 16:45 Hgb Hct RDW Potassium Carbon Dioxide BUN Est GFR (Non-Af Amer) Lactic Acid AST ALT Total Protein Albumin Urine Protein 30 H Urine Blood SMALL H Urine Urobilinogen 2.0 H Ur Leukocyte Esterase LARGE H Critical Care Note - Critical Care Note Total time excluding time spent on procedures (mins): 20 Discharge - Discharge Clinical Impression: Sepsis associated hypotension, UTI (urinary tract infection) Condition: Stable Disposition: ADMITTED INPATIENT Admitting Provider: [place] Hospitalist - [facility] [facility] Admitted: Telemetry Referrals: WENDY DAVILA MD [Primary Care Provider] - Follow up as needed
[2018-07-05] MEDS ORDERED: NORMAL SALINE 500 ML IV ONE (19:23)
[2018-07-05] MEDS ORDERED: MAGNESIUM HYDROXIDE SUSP 30 ML UDCUP PO PRN (20:42)
[2018-07-05] MEDS ORDERED: MAG HYDROX/AL HYDROX/SIMETH SUSP 30 ML UDCUP PO PRN (20:42)
[2018-07-05] MEDS ORDERED: ONDANSETRON HCL INJ/PF 4 MG/2 ML SDV IV PRN (20:42)
[2018-07-05] MEDS ORDERED: ONDANSETRON 4 MG TAB.RAPDIS PO PRN (20:42)
[2018-07-05] MEDS ORDERED: ACETAMINOPHEN 325 MG TABLET PO PRN (20:46)
[2018-07-05] MEDS ORDERED: HYDRALAZINE HCL INJ/PF 20 MG/1 ML SDV IV PRN (20:46)
[2018-07-05] MEDS ORDERED: ALBUTEROL SULFATE 0.083% NEB 2.5 MG/3 ML AMPUL NEB PRN (20:46)
[2018-07-05] MEDS ORDERED: NALBUPHINE HCL INJ 10 MG/1 ML AMPULE IV PRN (20:47)
[2018-07-05] MEDS ORDERED: SENNOSIDES 50 MG PO PRN (20:50)
[2018-07-05] MEDS ORDERED: DEXTROSE 40% GEL 15 GM TUBE PO PRN ×2 (20:55)
[2018-07-05] MEDS ORDERED: GLUCAGON,HUMAN RECOMB 1 MG INJ IM PRN (20:55)
[2018-07-05] MEDS ORDERED: DEXTROSE 50%-WATER 25 GM/50 ML DISP.SYRIN IV PRN ×2 (20:55)
[2018-07-05] MEDS ORDERED: MORPHINE SULFATE 10 MG/ML INJ IV PRN (20:57)
[2018-07-05] MEDS: INSULIN REG, HUMAN 100 UNIT/ML 3 ML VIAL (PYX) SUBCUT SCH (21:34)
[2018-07-05] MEDS: 1/2 NORMAL SALINE 1,000 ML IV PRN (21:50)
[2018-07-05] MEDS: ATORVASTATIN CALCIUM 80 MG TABLET PO SCH (21:53)
[2018-07-05] MEDS: BUSPIRONE HCL 10 MG TABLET PO SCH (21:53)
[2018-07-05] MEDS: FAMOTIDINE 20 MG TABLET PO SCH (21:53)
[2018-07-05] MEDS ORDERED: DIGOXIN INJ 0.5 MG/2 ML AMPULE IV ONE (22:07)
[2018-07-06] MEDS: MELATONIN 3 MG TABLET PO SCH ×2 (00:09→22:06)
[2018-07-06] MEDS: LEVALBUTEROL HCL NEB 1.25 MG/3 ML AMPUL NEB SCH ×3 (00:26→16:13)
[2018-07-06] MEDS: IPRATROPIUM BROMIDE 0.02% NEB 0.5 MG/2.5 ML AMPUL NEB SCH ×3 (00:26→16:13)
--- NOTE | 2018-07-06 01:28 | EKG REPORT ---
SEVERITY:- ABNORMAL ECG - SINUS TACHYCARDIA VENTRICULAR PREMATURE COMPLEX LEFT BUNDLE BRANCH BLOCK : Confirmed by: Kristen Davis MD 06-Jul-2018 01:27:25
--- NOTE | 2018-07-06 04:07 | PDOC H&P ---
History of Present Illness Admission Date/PCP: 07/05/18 19:28 WENDY DAVILA MD Patient complains of: Confusion History of Present Illness: RADHA LAGUERRE is a 73 year old female who was sent to the emergency room by the [facility] due to hypotension and confusion identified just prior to transfer to the emergency room. Records indicate that she has had a 3-4 day history of fatigue which has been accompanied by mildly diminished appetite and the patient concurs with this assessment, although she is somewhat confused and her history may be unreliable. Just prior to her transfer to the emergency room she was noted to be hypotensive with a blood pressure in the 70s systolic at the skilled nursing and she was also significantly confused (more so than her baseline). In the emergency room patient was found to continue to be confused but her blood pressure had improved though she remained tachycardic throughout her ER course. She was noted to have a urine which was positive for leukocyte esterase and exhibited significant pyuria as well as a serum lactate of 2.5. With her hypotension and acute encephalopathy as well as urinary tract infection and a positive serum lactate the patient was considered positive for SIRS syndrome and suspicious for sepsis. She was subsequently admitted hospital for further evaluation and treatment. Past Medical History Cardiac Medical History: Reports: Atrial Fibrillation, Congestive Heart Failure - Diastolic, Hypertension, Heart Murmur Pulmonary Medical History: Reports: Chronic Obstructive Pulmonary Disease (COPD), Pneumonia, Sleep Apnea EENT Medical History: Reports: None Neurological Medical History: Denies: Multiple Sclerosis, Seizures Endocrine Medical History: Reports: Diabetes Mellitus Type 2, Hypothyroidism, Obesity Denies: Diabetes Mellitus Type 1, Hyperthyroidism Renal/ Medical History: Denies: Chronic Kidney Disease, Nephrolithiasis Malignancy Medical History: Reports: Lymphoma GI Medical History: Reports: Gastroesophageal Reflux Disease Denies: Cirrhosis, Hepatitis Musculoskeltal Medical History: Denies: Fibromyalgia, Gout Skin Medical History: Denies: Eczema, Psoriasis Psychiatric Medical History: Reports: Depression Denies: Alcohol Dependency, Substance Abuse, Tobacco Dependency Traumatic Medical History: Reports: None Hematology: Denies: Anemia, Bleeding Tendencies Infectious Medical History: Reports: None Past Surgical History Past Surgical History: Reports: Cholecystectomy, Gastric Bypass Surgery, Tonsillectomy, Other - panniiculectomy Social History Information Source: Transfer Record, Emergency Med Personnel, [facility] Records, Outside Facility Records Lives with: Prison Smoking Status: Never Smoker Frequency of Alcohol Use: Occasional Hx Recreational Drug Use: Yes Drugs: Marijuana Hx Prescription Drug Abuse: No - Advance Directive Resuscitation Status: Full Code Surrogate healthcare decision maker:: Her daughter Ranjana Family History Family History: COPD Parental Family History Reviewed: Yes Children Family History Reviewed: No Sibling(s) Family History Reviewed.: Yes Medication/Allergy Home Medications: Atorvastatin Calcium [Lipitor 80 mg Tablet] 80 mg PO QHS 05/16/18 Buspirone HCl [Buspar 15 mg Tablet] 15 mg PO BID 05/16/18 Docusate Sodium [Colace 100 mg Capsule] 100 mg PO BID 05/16/18 Duloxetine HCl [Cymbalta] 30 mg PO DAILY 05/16/18 Escitalopram Oxalate [Lexapro] 20 mg PO DAILY 05/16/18 Fluticasone/Vilanterol [Breo Ellipta 100-25 Mcg INH] 1 puff IH DAILY 05/16/18 Furosemide [Lasix 20 mg Tablet] 20 mg PO DAILY 05/16/18 Melatonin [Melatonin 3 mg Tablet] 6 mg PO QHS 05/16/18 Montelukast Sodium [Singulair 10 mg Tablet] 10 mg PO QPM 05/16/18 Ondansetron HCl [Zofran 4 mg Tablet] 4 mg PO QIDP PRN 05/16/18 Oxycodone Myristate [Xtampza ER] 13.5 mg PO Q12 05/16/18 Pantoprazole Sodium [Protonix] 40 mg PO QAM 05/16/18 Sennosides [Laxative] 50 mg PO DAILYP PRN 05/16/18 Suvorexant [Belsomra] 5 mg PO QHS 05/16/18 Vitafusion Probiotic 2 tab PO DAILY 05/16/18 Vitafusion [employer] 2 tab PO DAILY 05/16/18 Apixaban [Eliquis 2.5 mg Tablet] 2.5 mg PO BID #60 tablet 05/25/18 Diltiazem HCl [Cardizem Cd 240 mg Capsule.cr] 1 cap.sr PO DAILY #30 tab.sr 05/25/18 Levothyroxine Sodium 100 mcg PO DAILY #30 tablet 05/25/18 Allergies/Adverse Reactions: codeine [Codeine] Allergy (Verified 07/05/18 16:18) haloperidol [From Haldol] Allergy (Verified 07/05/18 16:18) Change in behavior haloperidol lactate [From Haldol] Allergy (Verified 07/05/18 16:18) Change in behavior Sulfa (Sulfonamide Antibiotics) Allergy (Verified 07/05/18 16:18) rash; itching Beta-Blockers (Beta-Adrenergic Bloc Adverse Reaction (Verified 07/05/18 16:18) Bradycardia zolpidem tartrate [From Ambien] Adverse Reaction (Verified 07/05/18 16:18) sleep walk Review of Systems ROS unobtainable: Due to mental status - Patient is genuinely pleasant and affable, but unfortunately, acutely confused as to her current and past status. Physical Exam Vital Signs: Temp Pulse Resp BP Pulse Ox 98.3 F 20 81/60 L 62 L 07/05/18 15:55 07/05/18 19:43 07/05/18 19:43 07/05/18 19:43 Intake & Output 07/03/18 07/04/18 07/05/18 23:59 23:59 23:59 Intake Total 2600 Balance 2600 Weight 79.5 kg General appearance: PRESENT: no acute distress, cooperative Head exam: PRESENT: atraumatic, normocephalic Eye exam: PRESENT: conjunctiva pink. ABSENT: scleral icterus Ear exam: PRESENT: normal external ear exam. ABSENT: bleeding, drainage Mouth exam: PRESENT: dry mucosa, neck supple Neck exam: ABSENT: thyromegaly, tracheal deviation Respiratory exam: PRESENT: clear to auscultation glory, symmetrical, unlabored Cardiovascular exam: PRESENT: RRR, tachycardia - 110-120. ABSENT: clicks, gallop, rubs Pulses: PRESENT: normal radial pulses, normal dorsalis pedis pul Vascular exam: PRESENT: normal capillary refill. ABSENT: pallor GI/Abdominal exam: PRESENT: normal bowel sounds, soft. ABSENT: tenderness Rectal exam: PRESENT: deferred Extremities exam: ABSENT: joint swelling, pedal edema Musculoskeletal exam: ABSENT: deformity, dislocation Neurological exam: PRESENT: alert, oriented to person - Oriented to self but not oriented to other persons in the environment, CN II-XII grossly intact. ABSENT: oriented to place, oriented to time, oriented to situation, motor sensory deficit Psychiatric exam: PRESENT: appropriate affect, normal mood, other - Confused Skin exam: PRESENT: dry, intact, warm. ABSENT: jaundice, rash, urticaria Results Laboratory Results: 07/05/18 16:30 07/05/18 16:30 07/05/18 07/05/18 07/05/18 16:30 16:30 16:30 WBC 8.2 RBC 3.84 Hgb 11.8 L Hct 35.7 L MCV 93 MCH 30.6 MCHC 33.0 RDW 14.5 H Plt Count 198 Seg Neutrophils % 67.6 Lymphocytes % 22.4 Monocytes % 8.2 Eosinophils % 1.2 Basophils % 0.6 Absolute Neutrophils 5.6 Absolute Lymphocytes 1.8 Absolute Monocytes 0.7 Absolute Eosinophils 0.1 Absolute Basophils 0.0 VBG pH VBG pCO2 VBG HCO3 VBG Base Excess Sodium 139.6 Potassium 3.5 L Chloride 103 Carbon Dioxide 31 H Anion Gap 6 BUN 21 H Creatinine 1.02 Est GFR ( Amer) > 60 Est GFR (Non-Af Amer) 53 L Glucose 84 Lactic Acid 2.5 H Calcium 8.4 Total Bilirubin 1.2 AST 127 H ALT 107 H Alkaline Phosphatase 125 Total Protein 5.3 L Albumin 2.4 L Urine Color Urine Appearance Urine pH Ur Specific [place] Urine Protein Urine Glucose (UA) Urine Ketones Urine Blood Urine Nitrite Ur Leukocyte Esterase Urine WBC (Auto) Urine RBC (Auto) 07/05/18 07/05/18 07/05/18 16:45 17:41 18:35 WBC RBC Hgb Hct MCV MCH MCHC RDW Plt Count Seg Neutrophils % Lymphocytes % Monocytes % Eosinophils % Basophils % Absolute Neutrophils Absolute Lymphocytes Absolute Monocytes Absolute Eosinophils Absolute Basophils VBG pH Cancelled 7.36 VBG pCO2 Cancelled 52.7 VBG HCO3 Cancelled 29.4 VBG Base Excess Cancelled 2.9 Sodium Potassium Chloride Carbon Dioxide Anion Gap BUN Creatinine Est GFR ( Amer) Est GFR (Non-Af Amer) Glucose Lactic Acid Calcium Total Bilirubin AST ALT Alkaline Phosphatase Total Protein Albumin Urine Color MATHEW Urine Appearance TURBID Urine pH 5.0 Ur Specific [place] 1.016 Urine Protein 30 H Urine Glucose (UA) NEGATIVE Urine Ketones NEGATIVE Urine Blood SMALL H Urine Nitrite NEGATIVE Ur Leukocyte Esterase LARGE H Urine WBC (Auto) >182 Urine RBC (Auto) 9 Impressions: Chest X-Ray 07/05/18 16:36 IMPRESSION: Cardiomegaly without pulmonary edema. Cannot exclude minimal pleural fluid. Assessment & Plan - Diagnosis (1) SIRS (systemic inflammatory response syndrome) Is this a current diagnosis for this admission?: Yes Plan: Patient is noted to have an elevated lactic acid as well as hypotension with a probable urinary tract infection due to an unknown organism. Her lactic acid levels will be checked every 4 hours and her blood pressure will be monitored after receiving 2 L of IV fluids. Though it is possible she is septic she may just be dehydrated due to her acute encephalopathy associated with her urinary tract infection. (2) Hypotension Qualifiers: Hypotension type: unspecified hypotension type Qualified Code(s): I95.9 - Hypotension, unspecified Is this a current diagnosis for this admission?: Yes Plan: Patient's hypertension will be treated with IV fluid bolus initially and further intervention as required. (3) Acute encephalopathy Is this a current diagnosis for this admission?: Yes Plan: Patient's acute encephalopathy will be addressed by closely monitoring her mental status as well as resolving the probable metabolic causes for her encephalopathy including dehydration and a urinary tract infection. (4) UTI (urinary tract infection) Qualifiers: Urinary tract infection type: site unspecified Hematuria presence: without hematuria Qualified Code(s): N39.0 - Urinary tract infection, site not specifi ed Is this a current diagnosis for this admission?: Yes Plan: Patient's urinary tract infection will be treated with IV antibiotic therapy utilizing a broad-spectrum agent until such time as her urine culture and sensitivity can allow for a more focused antibiotic therapeutic intervention. (5) Elevated liver enzymes Is this a current diagnosis for this admission?: Yes Plan: Patient's liver enzymes will be monitored throughout her hospital course with further evaluation and/or intervention as required. - Time Time Spent: 30 to 50 Minutes Critical Time spent with patient: Less than 15 minutes Medications reviewed and adjusted accordingly: Yes Anticipated discharge: SNF - Inpatient Certification Based on my medical assessment, after consideration of the patient's comorbidities, presenting symptoms, or acuity I expect that the services needed warrant INPATIENT care.: Yes I certify that my determination is in accordance with my understanding of Medicare's requirements for reasonable and necessary INPATIENT services [42 CFR 412.3e].: Yes Medical Necessity: Significant Comorbidiites Make Outpatient Treatment Too Risky, Need Close Monitoring Due to Risk of Patient Decompensation, Need For Continuous Telemetry Monitoring, Need for IV Antibiotics, Risk of Complication if Not Cared For in Hospital
[2018-07-06] MEDS: 1/2 NORMAL SALINE 1,000 ML IV PRN (06:17)
[2018-07-06 06:36] LABS: ABSOLUTE BASOPHILS # (AUTO) 0.1 10^3/uL (0.0-0.2); ABSOLUTE EOSINOPHILS # (AUTO) 0.1 10^3/uL (0.0-0.6); ABSOLUTE LYMPHOCYTES (AUTO) 2.1 10^3/uL (0.5-4.7); ABSOLUTE MONOCYTES (AUTO) 0.8 10^3/uL (0.1-1.4); ABSOLUTE NEUT (AUTO) 4.7 10^3/uL (1.7-8.2); BASOPHILS % (AUTO) 1.1 % (0-2); HEMATOCRIT 31.7 % (36.0-47.0); HEMOGLOBIN 10.5 g/dL (12.0-15.5); LYMPHOCYTES % (AUTO) 27.4 % (13-45); MEAN CORPUSCULAR HEMOGLOBIN 30.2 pg (27.0-33.4); MEAN CORPUSCULAR HGB CONC 33.2 g/dL (32.0-36.0); MEAN CORPUSCULAR VOLUME 91 fl (80-97); MONOCYTES % (AUTO) 10.4 % (3-13); PLATELET COUNT 161 10^3/uL (150-450); RED BLOOD COUNT 3.48 10^6/uL (3.72-5.28); RED CELL DISTRIBUTION WIDTH 14.7 % (11.5-14.0); SEGMENTED NEUTROPHILS % (AUTO) 60.1 % (42-78); TOTAL CELLS COUNTED % (AUTO) 100 %; WHITE BLOOD COUNT 7.7 10^3/uL (4.0-10.5)
[2018-07-06 06:42] LABS: ALANINE AMINOTRANSFERASE 85 U/L (9-52); ALBUMIN 1.7 g/dL (3.5-5.0); ALKALINE PHOSPHATASE 95 U/L (38-126); ASPARTATE AMINO TRANSFERASE 76 U/L (14-36); BILIRUBIN,DIRECT 0.3 mg/dL (0.0-0.4); BILIRUBIN,TOTAL 0.7 mg/dL (0.2-1.3); BLOOD UREA NITROGEN 19 mg/dL (7-20); CALCIUM 8.1 mg/dL (8.4-10.2); DIGOXIN 1.03 ng/mL (0.8-2.0); GLUCOSE 85 mg/dL (75-110); POTASSIUM 3.4 mmol/L (3.6-5.0); SODIUM 140.7 mmol/L (137-145); TOTAL PROTEIN 4.1 g/dL (6.3-8.2)
[2018-07-06 06:48] LABS: ANION GAP 5 (5-19); CARBON DIOXIDE 28 mmol/L (22-30); CHLORIDE 108 mmol/L (98-107)
[2018-07-06 07:04] LABS: FREE T3 1.42 pg/mL (2.77-5.27); FREE T4 (FREE THYROXINE) 0.76 ng/dL (0.78-2.19)
[2018-07-06 07:17] LABS: THYROID STIMULATING HORMONE 19.4 uIU/mL (0.47-4.68)
[2018-07-06] MEDS: BUDESONIDE NEB 0.5 MG/2 ML AMPUL NEB SCH ×2 (09:29→20:20)
[2018-07-06] MEDS: INSULIN REG, HUMAN 100 UNIT/ML 3 ML VIAL (PYX) SUBCUT SCH ×4 (09:50→22:36)
[2018-07-06] MEDS: LEVOTHYROXINE SODIUM 0.1 MG TABLET PO SCH (10:30)
[2018-07-06] MEDS: BUSPIRONE HCL 10 MG TABLET PO SCH ×2 (10:31→22:05)
[2018-07-06] MEDS: DOCUSATE SODIUM 100 MG CAPSULE PO SCH ×2 (10:32→17:31)
[2018-07-06] MEDS: FAMOTIDINE 20 MG TABLET PO SCH ×2 (10:32→22:05)
[2018-07-06] MEDS: ESCITALOPRAM OXALATE 10 MG TABLET PO SCH (10:32)
--- NOTE | 2018-07-06 13:25 | PDOC PROGRESS REPORT ---
Subjective Progress Note for:: 07/06/18 Subjective:: Hospital day #1. Patient states she feels much better. She is sitting up and eating breakfast. she denies any chest pain or shortness of breath. Her heart rates is controlled and she is in atrial fib. she does have some swelling in her ankles. still awaiting cultures. Reason For Visit: SIRS SECONDARY TO AN ACUTE URINARY TRACT INFECTION Physical Exam Vital Signs: Temp Pulse Resp BP Pulse Ox 98.1 F 100 14 131/102 H 98 07/06/18 10:46 07/06/18 10:46 07/06/18 09:29 07/06/18 10:46 07/06/18 10:46 Intake & Output 07/05/18 07/06/18 07/07/18 06:59 06:59 06:59 Intake Total 4150 474 Balance 4150 474 Weight 81 kg General appearance: PRESENT: no acute distress, cooperative Eye exam: PRESENT: EOMI. ABSENT: scleral icterus Mouth exam: PRESENT: moist, neck supple Neck exam: PRESENT: full ROM. ABSENT: JVD, lymphadenopathy, tenderness, thyromegaly, tracheal deviation Respiratory exam: PRESENT: clear to auscultation glory, unlabored Cardiovascular exam: PRESENT: irregular rhythm Vascular exam: ABSENT: pallor GI/Abdominal exam: PRESENT: normal bowel sounds, soft. ABSENT: tenderness Extremities exam: PRESENT: pedal edema - 2+ bilaterally to the knees. ABSENT: calf tenderness Neurological exam: PRESENT: alert, oriented to person, oriented to place, oriented to time, oriented to situation Psychiatric exam: ABSENT: agitated, anxious Skin exam: PRESENT: dry, normal color, warm Results Laboratory Results: 07/06/18 05:38 07/06/18 05:38 07/05/18 07/05/18 07/05/18 16:30 16:30 16:30 WBC 8.2 RBC 3.84 Hgb 11.8 L Hct 35.7 L MCV 93 MCH 30.6 MCHC 33.0 RDW 14.5 H Plt Count 198 Seg Neutrophils % 67.6 Lymphocytes % 22.4 Monocytes % 8.2 Eosinophils % 1.2 Basophils % 0.6 Absolute Neutrophils 5.6 Absolute Lymphocytes 1.8 Absolute Monocytes 0.7 Absolute Eosinophils 0.1 Absolute Basophils 0.0 VBG pH VBG pCO2 VBG HCO3 VBG Base Excess Sodium 139.6 Potassium 3.5 L Chloride 103 Carbon Dioxide 31 H Anion Gap 6 BUN 21 H Creatinine 1.02 Est GFR ( Amer) > 60 Est GFR (Non-Af Amer) 53 L Glucose 84 Lactic Acid 2.5 H Calcium 8.4 Magnesium Total Bilirubin 1.2 AST 127 H ALT 107 H Alkaline Phosphatase 125 Total Protein 5.3 L Albumin 2.4 L TSH Free T4 Free T3 pg/mL Urine Color Urine Appearance Urine pH Ur Specific [place] Urine Protein Urine Glucose (UA) Urine Ketones Urine Blood Urine Nitrite Ur Leukocyte Esterase Urine WBC (Auto) Urine RBC (Auto) 07/05/18 07/05/18 07/05/18 16:45 17:41 18:35 WBC RBC Hgb Hct MCV MCH MCHC RDW Plt Count Seg Neutrophils % Lymphocytes % Monocytes % Eosinophils % Basophils % Absolute Neutrophils Absolute Lymphocytes Absolute Monocytes Absolute Eosinophils Absolute Basophils VBG pH Cancelled 7.36 VBG pCO2 Cancelled 52.7 VBG HCO3 Cancelled 29.4 VBG Base Excess Cancelled 2.9 Sodium Potassium Chloride Carbon Dioxide Anion Gap BUN Creatinine Est GFR ( Amer) Est GFR (Non-Af Amer) Glucose Lactic Acid Calcium Magnesium Total Bilirubin AST ALT Alkaline Phosphatase Total Protein Albumin TSH Free T4 Free T3 pg/mL Urine Color MATHEW Urine Appearance TURBID Urine pH 5.0 Ur Specific [place] 1.016 Urine Protein 30 H Urine Glucose (UA) NEGATIVE Urine Ketones NEGATIVE Urine Blood SMALL H Urine Nitrite NEGATIVE Ur Leukocyte Esterase LARGE H Urine WBC (Auto) >182 Urine RBC (Auto) 9 07/05/18 07/06/18 07/06/18 20:49 05:38 05:38 WBC 7.7 RBC 3.48 L Hgb 10.5 L Hct 31.7 L MCV 91 MCH 30.2 MCHC 33.2 RDW 14.7 H Plt Count 161 Seg Neutrophils % 60.1 Lymphocytes % 27.4 Monocytes % 10.4 Eosinophils % 1.0 Basophils % 1.1 Absolute Neutrophils 4.7 Absolute Lymphocytes 2.1 Absolute Monocytes 0.8 Absolute Eosinophils 0.1 Absolute Basophils 0.1 VBG pH VBG pCO2 VBG HCO3 VBG Base Excess Sodium 140.7 Potassium 3.4 L Chloride 108 H Carbon Dioxide 28 Anion Gap 5 BUN 19 Creatinine 0.92 Est GFR ( Amer) > 60 Est GFR (Non-Af Amer) > 60 Glucose 85 Lactic Acid 1.5 Calcium 8.1 L Magnesium 1.6 Total Bilirubin 0.7 AST 76 H ALT 85 H Alkaline Phosphatase 95 Total Protein 4.1 L Albumin 1.7 L TSH Free T4 Free T3 pg/mL Urine Color Urine Appearance Urine pH Ur Specific [place] Urine Protein Urine Glucose (UA) Urine Ketones Urine Blood Urine Nitrite Ur Leukocyte Esterase Urine WBC (Auto) Urine RBC (Auto) 07/06/18 05:38 WBC RBC Hgb Hct MCV MCH MCHC RDW Plt Count Seg Neutrophils % Lymphocytes % Monocytes % Eosinophils % Basophils % Absolute Neutrophils Absolute Lymphocytes Absolute Monocytes Absolute Eosinophils Absolute Basophils VBG pH VBG pCO2 VBG HCO3 VBG Base Excess Sodium Potassium Chloride Carbon Dioxide Anion Gap BUN Creatinine Est GFR ( Amer) Est GFR (Non-Af Amer) Glucose Lactic Acid Calcium Magnesium Total Bilirubin AST ALT Alkaline Phosphatase Total Protein Albumin TSH 19.40 H Free T4 0.76 L Free T3 pg/mL 1.42 L Urine Color Urine Appearance Urine pH Ur Specific [place] Urine Protein Urine Glucose (UA) Urine Ketones Urine Blood Urine Nitrite Ur Leukocyte Esterase Urine WBC (Auto) Urine RBC (Auto) Impressions: Chest X-Ray 07/05/18 16:36 IMPRESSION: Cardiomegaly without pulmonary edema. Cannot exclude minimal pleural fluid. Assessment & Plan - Diagnosis (1) Sepsis associated hypotension Is this a current diagnosis for this admission?: Yes Plan: Secondary to UTI. Hypotension has resolved. Currently your urine culture growing gram-negative rods we will continue Rocephin until final cultures are back patient is starting to show signs of fluid overload so we will stop her IV fluids. Her lactic acid has returned to normal and her encephalopathy has resolved. (2) UTI (urinary tract infection) Qualifiers: Urinary tract infection type: site unspecified Hematuria presence: without hematuria Qualified Code(s): N39.0 - Urinary tract infection, site not specified Is this a current diagnosis for this admission?: Yes (3) Acute encephalopathy Is this a current diagnosis for this admission?: Yes Plan: Encephalopathy has resolved. Was secondary to sepsis from UTI. We will continue to monitor. (4) Acute on chronic diastolic (congestive) heart failure Is this a current diagnosis for this admission?: Yes Plan: Currently patient has 2+ pedal edema bilaterally slightly elevated JVP showing signs of early acute on chronic diastolic heart failure. We will start her back on her oral Lasix and see how she does holding fluids at this time. Also may be secondary to atrial fib as she was hypotensive when she came in and her diltiazem was held. (5) Afib Qualifiers: Atrial fibrillation type: chronic Qualified Code(s): I48.2 - Chronic atrial fibrillation Is this a current diagnosis for this admission?: Yes Plan: Is a history of atrial fib currently. she is rate controlled. we will just continue to monitor. as her blood pressure improves will add back and her diltiazem. 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 (7) Hypertension Qualifiers: Hypertension type: unspecified Qualified Code(s): I10 - Essential (primary) hypertension Is this a current diagnosis for this admission?: Yes Plan: Patient was hypotensive on admission so her antihypertensives have been held. We will add them back in as appropriate. Continue to monitor closely - Time Time Spent with patient: 25-34 minutes Medications reviewed and adjusted accordingly: Yes Anticipated discharge: SNF Within: within 48 hours
[2018-07-06] MEDS ORDERED: POTASSIUM CHLORIDE 10 MEQ CAPSULE.ER PO ONE ×3 (14:30→17:45)
[2018-07-06] MEDS: APIXABAN 2.5 MG TABLET PO SCH (15:38)
[2018-07-06] MEDS: DULOXETINE HCL 30 MG CAPSULE.DR PO SCH (16:59)
[2018-07-06] MEDS: FUROSEMIDE 20 MG TABLET PO SCH (17:10)
[2018-07-06] MEDS ORDERED: CEFTRIAXONE 1 GM/D5W RTU 1 GM/50 ML RTUPB IV SCH (18:00)
[2018-07-06] MEDS ORDERED: MONTELUKAST SODIUM 10 MG TABLET PO SCH (18:00)
--- NOTE | 2018-07-06 19:14 | EKG REPORT ---
SEVERITY:- ABNORMAL ECG - A-FLUTTER W/ PREDOM 3:1 AV BLOCK, A-RATE 254 IVCD, CONSIDER ATYPICAL LBBB : Confirmed by: Kristen Davis MD 06-Jul-2018 19:12:12
[2018-07-06] MEDS: ATORVASTATIN CALCIUM 80 MG TABLET PO SCH (22:05)
[2018-07-07] MEDS: LEVALBUTEROL HCL NEB 1.25 MG/3 ML AMPUL NEB SCH ×3 (00:36→16:45)
[2018-07-07] MEDS: IPRATROPIUM BROMIDE 0.02% NEB 0.5 MG/2.5 ML AMPUL NEB SCH ×3 (00:36→16:45)
[2018-07-07] MEDS ORDERED: METOPROLOL TARTRATE PF/INJ 5 MG/5 ML SDV IV PRN (03:00)
[2018-07-07 06:23] LABS: ABSOLUTE BASOPHILS # (AUTO) 0.1 10^3/uL (0.0-0.2); ABSOLUTE EOSINOPHILS # (AUTO) 0.1 10^3/uL (0.0-0.6); ABSOLUTE MONOCYTES (AUTO) 0.8 10^3/uL (0.1-1.4); ABSOLUTE NEUT (AUTO) 3.9 10^3/uL (1.7-8.2); EOSINOPHILS % (AUTO) 0.8 % (0-6); HEMATOCRIT 31.1 % (36.0-47.0); HEMOGLOBIN 10.5 g/dL (12.0-15.5); LYMPHOCYTES % (AUTO) 29.2 % (13-45); MEAN CORPUSCULAR HEMOGLOBIN 30.7 pg (27.0-33.4); MEAN CORPUSCULAR HGB CONC 33.6 g/dL (32.0-36.0); MEAN CORPUSCULAR VOLUME 91 fl (80-97); MONOCYTES % (AUTO) 11.6 % (3-13); PLATELET COUNT 170 10^3/uL (150-450); RED BLOOD COUNT 3.41 10^6/uL (3.72-5.28); RED CELL DISTRIBUTION WIDTH 14.5 % (11.5-14.0); SEGMENTED NEUTROPHILS % (AUTO) 57.4 % (42-78); TOTAL CELLS COUNTED % (AUTO) 100 %; WHITE BLOOD COUNT 6.8 10^3/uL (4.0-10.5)
[2018-07-07 06:41] LABS: ALANINE AMINOTRANSFERASE 70 U/L (9-52); ALBUMIN 1.6 g/dL (3.5-5.0); ALKALINE PHOSPHATASE 91 U/L (38-126); ASPARTATE AMINO TRANSFERASE 59 U/L (14-36); BILIRUBIN,DIRECT 0.3 mg/dL (0.0-0.4); BILIRUBIN,TOTAL 0.6 mg/dL (0.2-1.3); BLOOD UREA NITROGEN 18 mg/dL (7-20); CALCIUM 7.8 mg/dL (8.4-10.2); DIGOXIN 1.46 ng/mL (0.8-2.0); GLUCOSE 74 mg/dL (75-110); POTASSIUM 3.6 mmol/L (3.6-5.0)
[2018-07-07 06:43] LABS: CARBON DIOXIDE 29 mmol/L (22-30); CHLORIDE 106 mmol/L (98-107); SODIUM 138.2 mmol/L (137-145)
[2018-07-07] MEDS: BUDESONIDE NEB 0.5 MG/2 ML AMPUL NEB SCH (07:37)
[2018-07-07] MEDS ORDERED: MORPHINE SULFATE 10 MG/ML INJ IV PRN ×3 (07:58→08:00)
[2018-07-07] MEDS ORDERED: ONDANSETRON 4 MG TAB.RAPDIS PO PRN (08:00)
[2018-07-07] MEDS ORDERED: ONDANSETRON HCL INJ/PF 4 MG/2 ML SDV IV PRN (08:00)
[2018-07-07] MEDS ORDERED: SENNOSIDES/DOCUSATE 8.6-50 MG 1 EACH TABLET PO PRN (08:03)
[2018-07-07 08:05] LABS: ANION GAP 3 (5-19)
[2018-07-07] MEDS: INSULIN REG, HUMAN 100 UNIT/ML 3 ML VIAL (PYX) SUBCUT SCH ×3 (08:22→17:20)
[2018-07-07] MEDS: FUROSEMIDE 20 MG TABLET PO SCH (10:49)
[2018-07-07] MEDS: BUSPIRONE HCL 10 MG TABLET PO SCH (10:49)
[2018-07-07] MEDS: ESCITALOPRAM OXALATE 10 MG TABLET PO SCH (10:49)
[2018-07-07] MEDS: DULOXETINE HCL 30 MG CAPSULE.DR PO SCH (10:49)
[2018-07-07] MEDS: LEVOTHYROXINE SODIUM 0.1 MG TABLET PO SCH (10:49)
[2018-07-07] MEDS: FAMOTIDINE 20 MG TABLET PO SCH (10:50)
[2018-07-07] MEDS: DOCUSATE SODIUM 100 MG CAPSULE PO SCH (10:51)
[2018-07-07] MEDS: APIXABAN 2.5 MG TABLET PO SCH ×2 (10:51)
--- NOTE | 2018-07-07 12:32 | PDOC TRANSFER SUMMARY ---
General - Admit/Disc Date/PCP Admission Date/Primary Care Provider: 07/05/18 19:28 WENDY DAVILA MD Discharge Date: 07/07/18 - Discharge Diagnosis (1) Sepsis associated hypotension Is this a current diagnosis for this admission?: Yes Summary: The patient's admission she is progressed well. Urine culture has grown out E. coli. With alexandre sensitivities. Antibiotics are being adjusted to an oral acceptable dose. Need to complete 4 more days of antibiotics. (2) UTI (urinary tract infection) Is this a current diagnosis for this admission?: Yes Summary: As the cause for the sepsis. Urine culture grew out E. coli. Antibiotic have been adjusted accordingly. (3) Acute encephalopathy Is this a current diagnosis for this admission?: Yes Summary: Encephalopathy secondary to sepsis from urinary tract infection. Acute encephalopathy has resolved. (4) Acute on chronic diastolic (congestive) heart failure Is this a current diagnosis for this admission?: Yes Summary: Acute on chronic diastolic congestive heart failure. Patient did develop some signs of fluid overload with a slight shortness of breath and peripheral edema. This was corrected with starting her home dose of Lasix. Otherwise heart rate is been well controlled for atrial fib. Be restarting home medications upon discharge. (5) Afib Is this a current diagnosis for this admission?: Yes Summary: Patient has a history of chronic atrial fib. She is remained rate controlled during her whole admission. She will be restarted on her home diltiazem to ensure rate control after discharge. (6) Diabetes Is this a current diagnosis for this admission?: Yes Summary: Her blood sugars have been well controlled. She will just need routine monitoring after discharge. (7) Hypertension Is this a current diagnosis for this admission?: Yes Summary: Initially upon admission patient was hypotensive some of her antihypertensives were held. Blood pressures remained stable throughout her visit. She will be restarted on her home antihypertensive medications. - Additional Information Resuscitation Status: Full Code Discharge Diet: Diabetic Discharge Activity: Activity As Tolerated Prescriptions: Ciprofloxacin HCl [Cipro 500 mg Tablet] 500 mg PO BID #8 tablet Home Medications: Atorvastatin Calcium [Lipitor 80 mg Tablet] 80 mg PO QHS 05/16/18 Buspirone HCl [Buspar 15 mg Tablet] 15 mg PO BID 05/16/18 Docusate Sodium [Colace 100 mg Capsule] 100 mg PO BID 05/16/18 Duloxetine HCl [Cymbalta] 30 mg PO DAILY 05/16/18 Escitalopram Oxalate [Lexapro] 20 mg PO DAILY 05/16/18 Fluticasone/Vilanterol [Breo Ellipta 100-25 Mcg INH] 1 puff IH DAILY 05/16/18 Furosemide [Lasix 20 mg Tablet] 20 mg PO DAILY 05/16/18 Melatonin [Melatonin 3 mg Tablet] 6 mg PO QHS 05/16/18 Montelukast Sodium [Singulair 10 mg Tablet] 10 mg PO QPM 05/16/18 Ondansetron HCl [Zofran 4 mg Tablet] 4 mg PO QIDP PRN 05/16/18 Oxycodone Myristate [Xtampza ER] 13.5 mg PO Q12 05/16/18 Pantoprazole Sodium [Protonix] 40 mg PO QAM 05/16/18 Sennosides [Laxative] 50 mg PO DAILYP PRN 05/16/18 Suvorexant [Belsomra] 5 mg PO QHS 05/16/18 Vitafusion Probiotic 2 tab PO DAILY 05/16/18 Vitafusion [employer] 2 tab PO DAILY 05/16/18 Apixaban [Eliquis 2.5 mg Tablet] 2.5 mg PO BID #60 tablet 05/25/18 Diltiazem HCl [Cardizem Cd 240 mg Capsule.cr] 1 cap.sr PO DAILY #30 tab.sr 05/25/18 Levothyroxine Sodium 100 mcg PO DAILY #30 tablet 05/25/18 Budesonide [Pulmicort Neb 0.5 mg/2 ml Ampul] 0.5 mg NEB RTBID ampul.neb 07/07/18 Ciprofloxacin HCl [Cipro 500 mg Tablet] 500 mg PO BID #8 tablet 07/07/18 History of Present Illness Admission Date/PCP: 07/05/18 19:28 WENDY DAVILA MD Patient complains of: confusion History of Present Illness: RADHA LAGUERRE is a 73 year old female initially admitted to the ER. Patient lives in assisted living center. She was noted to be more confused than usual. Evaluation in the emergency room she was found to have a UTI sepsis and felt that her encephalopathy was secondary to sepsis. Hospital Course Hospital Course: During her admission she has progressed very well. Her encephalopathy has resolved. She has been afebrile for greater than 24 hours. Her urine cultures grown E. coli. Her antibiotics are being adjusted accordingly. Her urine culture grew pansensitive E. coli which makes life easier. Patient is return back to her normal baseline functioning. She will be discharged back to assisted living center. Physical Exam Vital Signs: Temp Pulse Resp BP Pulse Ox 97.7 F 99 14 94/70 L 92 07/07/18 03:18 07/07/18 07:37 07/07/18 07:37 07/07/18 03:18 07/07/18 07:37 Intake & Output 07/06/18 07/07/18 07/08/18 06:59 06:59 06:59 Intake Total 4150 1049 Balance 4150 1049 Weight 81 kg 84 kg Results Laboratory Results: 07/07/18 06:01 07/07/18 06:01 07/07/18 07/07/18 06:01 06:01 WBC 6.8 RBC 3.41 L Hgb 10.5 L Hct 31.1 L MCV 91 MCH 30.7 MCHC 33.6 RDW 14.5 H Plt Count 170 Seg Neutrophils % 57.4 Lymphocytes % 29.2 Monocytes % 11.6 Eosinophils % 0.8 Basophils % 1.0 Absolute Neutrophils 3.9 Absolute Lymphocytes 2.0 Absolute Monocytes 0.8 Absolute Eosinophils 0.1 Absolute Basophils 0.1 Sodium 138.2 Potassium 3.6 Chloride 106 Carbon Dioxide 29 Anion Gap 3 L BUN 18 Creatinine 0.92 Est GFR ( Amer) > 60 Est GFR (Non-Af Amer) > 60 Glucose 74 L Calcium 7.8 L Magnesium 1.5 L Total Bilirubin 0.6 AST 59 H ALT 70 H Alkaline Phosphatase 91 Total Protein 4.0 L Albumin 1.6 L 07/05/18 16:45 Catheterized Urine Urine Culture - Final Escherichia Coli Impressions: Chest X-Ray 07/05/18 16:36 IMPRESSION: Cardiomegaly without pulmonary edema. Cannot exclude minimal pleural fluid. Transfer Plan - Disposition Transfer Plan: Patient being discharged today. She will need to complete 4 more days of antibiotics. She is being returned back to the assisted living center she was at prior to admission. Qualifiers - * PATIENT BEING DISCHARGED WITH ANY OF THE FOLLOWING DIAGNOSIS: No Plan Time Spent: Greater than 30 Minutes
[2018-07-07 13:11] VITALS: BP 94/62
[2018-07-08] MEDS ORDERED: LEVOTHYROXINE SODIUM 0.1 MG TABLET PO SCH (06:00)
== END 2018-07-07 18:10 | disposition home or self-care (01) | DRG 871 ==
LOC: ER 15:54 → EH 19:28 → 3S 23:20
PROVIDERS: ADMIT Emergency Medicine; ATTEND Emergency Medicine
DX: A41.9 Sepsis, unspecified organism (principal); G93.41 Metabolic encephalopathy; I50.33 Acute on chronic diastolic (congestive) heart failure; N39.0 Urinary tract infection, site not specified; I48.91 Unspecified atrial fibrillation; I11.0 Hypertensive heart disease with heart failure; J44.9 Chronic obstructive pulmonary disease, unspecified; E11.9 Type 2 diabetes mellitus without complications; E03.9 Hypothyroidism, unspecified; E66.9 Obesity, unspecified; K21.9 Gastro-esophageal reflux disease without esophagitis; B96.20 Unspecified Escherichia coli [E. coli] as the cause of diseases classified elsewhere; Z85.72 Personal history of non-Hodgkin lymphomas; F32.9 Major depressive disorder, single episode, unspecified; Z90.49 Acquired absence of other specified parts of digestive tract; Z98.84 Bariatric surgery status; Z79.899 Other long term (current) drug therapy; Z79.01 Long term (current) use of anticoagulants; Z88.6 Allergy status to analgesic agent; Z88.2 Allergy status to sulfonamides; Z88.8 Allergy status to other drugs, medicaments and biological substances
CPT/HCPCS: 36415; 71045; 80048; 80053; 80076; 80162; 81001; 82803; 82962; 83036; 83605; 83735; 84439; 84443; 84481; 85025; 85610; 87040; 87086; 87088; 87186; 93005; 93010; 94640; 96361; 96365; 99285; J0696; J1160; J3490; J7030; J7040

== ENCOUNTER 2018-07-21 11:12 | Inpatient (IN) | payer MEDICARE ==
--- NOTE | 2018-07-21 11:22 | ER Document Report ---
ED General - General Stated Complaint: SHORTNESS OF BREATH Time Seen by Provider: 07/21/18 11:21 Primary Care Provider: WENDY DAVILA MD [Primary Care Provider] - Follow up as needed Mode of Arrival: Ambulatory Information source: Patient TRAVEL OUTSIDE OF THE [place] IN LAST 30 DAYS: No - HPI Notes: 73-year-old female with a history of Atrial fib, heart failure, type 2 diabetes, chronic renal disease presents via EMS to the ER for complaints of dyspnea and shortness of breath that became worse this morning. Patient does take Eliquis daily for anticoagulation as well as diltiazem exam for rate control, take Lasix daily for history of heart failure. Patient states she has a history of pre- existing shortness of breath but this episode this morning has become worse. Patient wears supplemental oxygen at night as needed does not change during the day. Patient did have a stress test done in August 2017 which did require her to get a stent, she was transferred provided for this. Denies fevers, chills, chest pain,palpitations, nausea, vomiting, diarrhea, abdominal pain, hematuria,blurred vision, double vision, loss of vision, speech changes, LH, dizziness, syncope, headaches, wheezing, ST, URI, neck pain, weakness, bowel or bladder dysfunction, saddle anesthesia, numbness or tingling in bilateral upper or lower extremities equally, muscle paralysis, weakness in bilateral upper or lower extremities equally or rash. - Related Data Allergies/Adverse Reactions: codeine [Codeine] Allergy (Verified 07/05/18 16:18) haloperidol [From Haldol] Allergy (Verified 07/05/18 16:18) Change in behavior Sulfa (Sulfonamide Antibiotics) Allergy (Verified 07/05/18 16:18) rash; itching Beta-Blockers (Beta-Adrenergic Bloc Adverse Reaction (Verified 07/05/18 16:18) Bradycardia zolpidem tartrate [From Ambien] Adverse Reaction (Verified 07/05/18 16:18) sleep walk Past Medical History - General Information source: Patient - Social History Smoking Status: Current Every Day Smoker Family History: Reviewed & Not Pertinent, COPD - Past Medical History Cardiac Medical History: Reports: Hx Atrial Fibrillation, Hx Congestive Heart Failure - Diastolic, Hx Hypertension, Hx Heart Murmur Pulmonary Medical History: Reports: Hx COPD, Hx Pneumonia, Hx Sleep Apnea Neurological Medical History: Denies: Hx Seizures Endocrine Medical History: Reports: Hx Diabetes Mellitus Type 2, Hx Hypothyroidism. Denies: Hx Diabetes Mellitus Type 1, Hx Hyperthyroidism Renal/ Medical History: Denies: Hx Peritoneal Dialysis Malignancy Medical History: Reports: Hx Lymphoma GI Medical History: Reports: Hx Gastroesophageal Reflux Disease. Denies: Hx Cirrhosis, Hx Hepatitis Musculoskeletal Medical History: Denies Hx Fibromyalgia, Denies Hx Gout Skin Medical History: Denies Hx Eczema, Denies Hx Psoriasis Psychiatric Medical History: Reports: Hx Depression Infectious Medical History: Denies: Hx Hepatitis Past Surgical History: Reports: Hx Abdominal Surgery - GBP, Hx Cholecystectomy, Hx Gastric Bypass Surgery, Hx Thyroid Surgery, Hx Tonsillectomy, Other - panniiculectomy - Immunizations Hx Diphtheria, Pertussis, Tetanus Vaccination: Yes Hx Pneumococcal Vaccination: 06/03/13 Review of Systems - Review of Systems Constitutional: See HPI EENT: No symptoms reported Cardiovascular: See HPI Respiratory: See HPI Gastrointestinal: No symptoms reported Genitourinary: No symptoms reported Female Genitourinary: No symptoms reported Musculoskeletal: No symptoms reported Skin: No symptoms reported Hematologic/Lymphatic: No symptoms reported Neurological/Psychological: No symptoms reported Physical Exam - Notes Notes: PHYSICAL EXAMINATION: GENERAL: Chronically ill, well-nourished and in no acute distress ,obese HEAD: Atraumatic, normocephalic. EYES: Pupils equal round and reactive to light, extraocular movements intact, conjunctiva are normal. ENT: Nares patent, oropharynx clear without exudates. Moist mucous membranes. NECK: Normal range of motion, supple without lymphadenopathy LUNGS: Diminished breath sounds in bilateral upper lobes equally. No wheezes rales or rhonchi. HEART: atrial flutter without murmurs ABDOMEN: Soft, nontender, nondistended abdomen. No guarding, no rebound. No masses appreciated. Female : deferred Musculoskeletal: Normal range of motion, no pitting or edema. No cyanosis. NEUROLOGICAL: Cranial nerves grossly intact. Normal speech, normal gait. Normal sensory, motor exams PSYCH: Normal mood, normal affect. SKIN: Warm, Dry, normal turgor, no rashes or lesions noted. Course - Re-evaluation Re-evalutation: 07/21/18 11:51 73-year-old female afebrile, tachycardic and in mild distress presents for ev aluation of dyspnea. Chest x-ray shows pleural effusion, questionable whether there is edema or pneumonia, EKG shows a flutter with RVR, no STEMI or ST segment changes.Heart rates 135-140 in a flutter. Patient given Cardizem 15 mg leading dose and 5mg maintenance dose to help control her rate. Patient is anticoagulated on eliquis she has been taking regularly for her A. fib. Initial troponin unremarkable. potassium 3.0 will replace orally with 40 mEq of potassium chloride. CT chest does show the patient has bilateral pleural effusions, BNP 6620, troponin 0 0.094, creatinine is 0.98, BUN 12, CBC negative for leukocytosis. Throughout duration of ER stay patient remains afebrile heart rate has reduced down to 110s with Cardizem drip, in no distress. Consulted with Dr. Jacob Rivera, who will accept patient to IMCU for A. fib with RVR, hypokalemia, pleural effusions with acute onset of chronic CHF. Patient is stable on Cardizem drip. advised patient that she will be admitted down to stepdown ICU, patient agrees with plan of care and agree with plan of care. - Laboratory Result Diagrams: 07/21/18 14:24 07/21/18 12:20 Laboratory results interpreted by me: 07/21/18 07/21/18 07/21/18 12:20 13:25 14:24 Hgb 11.7 L Hct 34.7 L Sodium 135.3 L Potassium 3.0 L* Est GFR (Non-Af Amer) 58 L Glucose 70 L Calcium 7.7 L AST 48 H NT-Pro-B Natriuret Pep 6620 H Total Protein 4.8 L Albumin 2.1 L Discharge - Discharge Clinical Impression: Hyponatremia, Pleural effusion, Atrial fibrillation with RVR CHF exacerbation Qualifiers: Heart failure type: unspecified Qualified Code(s): I50.9 - Heart failure, uns pecified Condition: Stable Disposition: ADMITTED INPATIENT Admitting Provider: Hospitalist - Dr. Jacob Rivera Unit Admitted: [facility] Referrals: WENDY DAVILA MD [Primary Care Provider] - Follow up as needed
[2018-07-21] MEDS ORDERED: DILTIAZEM HCL INJ 25 MG/5 ML VIAL IV ONE ×2 (11:47→12:39)
[2018-07-21] MEDS ORDERED: DILTIAZEM HCL/D5W 125 MG/125 ML RTUINJ IV PRN (11:48)
--- NOTE | 2018-07-21 12:26 | RADIOLOGY REPORT (SQ) ---
EXAM DESCRIPTION: CHEST SINGLE VIEW COMPLETED DATE/TIME: 07/21/2018 12:01 pm REASON FOR STUDY: sob COMPARISON: 05/21/2018 NUMBER OF VIEWS: One view. TECHNIQUE: Single frontal radiographic view of the chest acquired. LIMITATIONS: None. FINDINGS: LUNGS AND PLEURA: Small pleural effusions, left greater than right. MEDIASTINUM AND HILAR STRUCTURES: Stable. HEART AND VASCULAR STRUCTURES: Cardiomegaly. BONES: No acute findings. HARDWARE: None in the chest. OTHER: No other significant finding. IMPRESSION: Pleural effusions. Asymmetric edema or pneumonia. TECHNICAL DOCUMENTATION: JOB ID: [id number] [employer]- All Rights Reserved Reading location - IP/workstation name: [email or web address]
[2018-07-21 13:03] LABS: APPEARANCE,URINE SLIGHTLY-CLOUDY; BILIRUBIN,URINE NEGATIVE (NEGATIVE); GLUCOSE, URINE NEGATIVE (NEGATIVE); KETONES,URINE NEGATIVE (NEGATIVE); LEUKOCYTE ESTERASE,URINE NEGATIVE (NEGATIVE); NITRITE,URINE NEGATIVE (NEGATIVE); PROTEIN,URINE NEGATIVE (NEGATIVE); URINE SPECIFIC GRAVITY 1.017; UROBILINOGEN,URINE NEGATIVE mg/dL (<2.0)
[2018-07-21 13:04] LABS: COLOR,URINE YELLOW
[2018-07-21 13:07] LABS: ALANINE AMINOTRANSFERASE 49 U/L (9-52); ALBUMIN 2.1 g/dL (3.5-5.0); ALKALINE PHOSPHATASE 98 U/L (38-126); ANION GAP 7 (5-19); ASPARTATE AMINO TRANSFERASE 48 U/L (14-36); BILIRUBIN,DIRECT 0.3 mg/dL (0.0-0.4); BILIRUBIN,TOTAL 0.7 mg/dL (0.2-1.3); BLOOD UREA NITROGEN 12 mg/dL (7-20); CALCIUM 7.7 mg/dL (8.4-10.2); CARBON DIOXIDE 28 mmol/L (22-30); CHLORIDE 100 mmol/L (98-107); CREATINE KINASE 67 U/L (30-135); GLUCOSE 70 mg/dL (75-110); SODIUM 135.3 mmol/L (137-145); TOTAL PROTEIN 4.8 g/dL (6.3-8.2)
--- NOTE | 2018-07-21 13:17 | RADIOLOGY REPORT (SQ) ---
EXAM DESCRIPTION: CT CHEST WITHOUT COMPLETED DATE/TIME: 07/21/2018 12:53 pm REASON FOR STUDY: PNA vs edema on cxr COMPARISON: Chest x-ray 07/21/2018 CT 05/22/2018 TECHNIQUE: CT scan performed of the chest without intravenous contrast. Images reviewed with lung, soft tissue and bone windows. Reconstructed coronal and sagittal MPR images reviewed. All images st ored on PACS. All CT scanners at this facility use dose modulation, iterative reconstruction, and/or weight based d osing when appropriate to reduce radiation dose to as low as reasonably achievable (ALARA). [facility]: Dose Right [facility]: CareDose [facility]: Dose Right [facility]: Teradose 4D [facility]: [employer] RADIATION DOSE: CT Rad equipment meets quality standard of care and radiation dose reduction techniq ues were employed. CTDIvol: 12.6 mGy. DLP: 457 mGy-cm. mGy. LIMITATIONS: No technical limitations. FINDINGS: LUNGS AND PLEURA: Moderate right pleural effusion and slightly smaller left pleural effusi on with associated compressive atelectatic changes in the lower lobes. HILAR AND MEDIASTINAL STRUCTURES: No identified masses or abnormal nodes. No obvious aneurysm. HEART AND VASCULAR STRUCTURES: Cardiomegaly. Minimal pericardial effusion. UPPER ABDOMEN: Cannot exclude a 3 cm left renal mass on image 61. THYROID AND OTHER SOFT TISSUES: No masses. No adenopathy. BONES: No significant finding. HARDWARE: None in the chest. OTHER: No other significant findings. IMPRESSION: 1. Bilateral pleural effusions with mild compressive atelectasis in the lower lobes. 2. Cardiomegaly. Minimal pericardial effusion. 3. Possible 3 cm left renal mass. TECHNICAL DOCUMENTATION: JOB ID: [id number] Quality ID # [id number]: Final reports with documentation of one or more dose reduction techniques (e.g., Au tomated exposure control, adjustment of the mA and/or kV according to patient size, use of iterative reconstruction technique) 2010 [employer]- All Rights Reserved Reading location - IP/workstation name: [email or web address]
[2018-07-21] MEDS ORDERED: POTASSI CL 20 MEQ/50 ML RIDER 20 MEQ/50 ML RTUPB IV SCH (13:30)
[2018-07-21 13:43] LABS: VENOUS BLOOD BASE EXCESS 4.4 mmol/L; VENOUS BLOOD HCO3 30.5 mmol/L (20-32); VENOUS BLOOD PCO2 52.4 mmHg (35-63); VENOUS BLOOD PH 7.38 (7.30-7.42)
[2018-07-21 13:44] LABS: INTERNATIONAL RATION (INR) 0.89; PROTHROMBIN TIME 12.5 SEC (11.4-15.4)
[2018-07-21 14:19] LABS: CREATINE KINASE MB 1.99 ng/mL (<4.55)
[2018-07-21 14:22] LABS: TROPONIN I 0.094 ng/mL
[2018-07-21 14:34] LABS: ABSOLUTE BASOPHILS # (AUTO) 0.1 10^3/uL (0.0-0.2); ABSOLUTE LYMPHOCYTES (AUTO) 1.2 10^3/uL (0.5-4.7); ABSOLUTE MONOCYTES (AUTO) 0.5 10^3/uL (0.1-1.4); ABSOLUTE NEUT (AUTO) 3.5 10^3/uL (1.7-8.2); BASOPHILS % (AUTO) 1.3 % (0-2); EOSINOPHILS % (AUTO) 0.3 % (0-6); HEMATOCRIT 34.7 % (36.0-47.0); HEMOGLOBIN 11.7 g/dL (12.0-15.5); LYMPHOCYTES % (AUTO) 23.1 % (13-45); MEAN CORPUSCULAR HEMOGLOBIN 29.7 pg (27.0-33.4); MEAN CORPUSCULAR HGB CONC 33.6 g/dL (32.0-36.0); MEAN CORPUSCULAR VOLUME 88 fl (80-97); MONOCYTES % (AUTO) 9.9 % (3-13); PLATELET COUNT 180 10^3/uL (150-450); RED BLOOD COUNT 3.94 10^6/uL (3.72-5.28); SEGMENTED NEUTROPHILS % (AUTO) 65.4 % (42-78); TOTAL CELLS COUNTED % (AUTO) 100 %; WHITE BLOOD COUNT 5.4 10^3/uL (4.0-10.5)
[2018-07-21] MEDS ORDERED: POTASSIUM CHLORIDE 10 MEQ CAPSULE.ER PO ONE (14:43)
[2018-07-21] MEDS ORDERED: ONDANSETRON HCL INJ/PF 4 MG/2 ML SDV IV PRN (15:05)
[2018-07-21] MEDS ORDERED: SENNOSIDES 50 MG PO PRN (15:16)
--- NOTE | 2018-07-21 15:46 | PDOC H&P ---
History of Present Illness Admission Date/PCP: 07/21/18 15:10 WENDY DAVILA MD Patient complains of: Patient came in with increasing shortness of breath from yesterday. History of Present Illness: RADHA LAGUERRE is a 73 year old female with history of atrial fibrillation congestive heart failure, hypertension, COPD on 2 L oxygen CPAP at night depression came to the emergency room with history of shortness of breath for 1 day duration associated with loose stools twice a day for the last 3 days. No chest pains as per the patient. No fever noted. No nausea no vomiting's. Complains of lightheadedness. Patient states she is compliant with her medications. She is also complaining of palpitations and feeling like her heart is racing away. Workup was done in the ER BNP was 6900, EKG found to be in A. fib with RVR patient was started on Cardizem drip medical consult was called for admission. Past Medical History Cardiac Medical History: Reports: Atrial Fibrillation, Congestive Heart Failure - Diastolic, Hypertension, Heart Murmur Pulmonary Medical History: Reports: Chronic Obstructive Pulmonary Disease (COPD), Pneumonia, Sleep Apnea Neurological Medical History: Denies: Seizures Endocrine Medical History: Reports: Diabetes Mellitus Type 2, Hypothyroidism Denies: Diabetes Mellitus Type 1, Hyperthyroidism Malignancy Medical History: Reports: Lymphoma GI Medical History: Reports: Gastroesophageal Reflux Disease Denies: Cirrhosis, Hepatitis Musculoskeltal Medical History: Denies: Fibromyalgia, Gout Skin Medical History: Denies: Eczema, Psoriasis Psychiatric Medical History: Reports: Depression Hematology: Denies: Anemia, Bleeding Tendencies Past Surgical History Past Surgical History: Reports: Cholecystectomy, Gastric Bypass Surgery, Tonsillectomy, Other - panniiculectomy Social History Smoking Status: Current Every Day Smoker Frequency of Alcohol Use: Occasional Hx Recreational Drug Use: Yes Drugs: Marijuana Hx Prescription Drug Abuse: No - Advance Directive Resuscitation Status: Full Code Family History Family History: Reviewed & Not Pertinent, COPD Parental Family History Reviewed: Yes Children Family History Reviewed: Yes Sibling(s) Family History Reviewed.: Yes Medication/Allergy Allergies/Adverse Reactions: codeine [Codeine] Allergy (Verified 07/05/18 16:18) haloperidol [From Haldol] Allergy (Verified 07/05/18 16:18) Change in behavior Sulfa (Sulfonamide Antibiotics) Allergy (Verified 07/05/18 16:18) rash; itching Beta-Blockers (Beta-Adrenergic Bloc Adverse Reaction (Verified 07/05/18 16:18) Bradycardia zolpidem tartrate [From Ambien] Adverse Reaction (Verified 07/05/18 16:18) sleep walk Review of Systems Constitutional: PRESENT: weakness. ABSENT: fever(s), headache(s) Eyes: ABSENT: visual disturbances Ears: ABSENT: hearing changes Nose, Mouth, and Throat: ABSENT: sore throat Cardiovascular: PRESENT: dyspnea on exertion, orthropnea, palpitations Respiratory: PRESENT: dyspnea Gastrointestinal: PRESENT: diarrhea Musculoskeletal: ABSENT: joint swelling Neurological: ABSENT: abnormal gait, abnormal speech, confusion, dizziness, focal weakness, syncope Psychiatric: PRESENT: anxiety Physical Exam Vital Signs: Temp Pulse Resp BP Pulse Ox 19 91/66 L 77 L 07/21/18 15:01 07/21/18 15:01 07/21/18 14:01 Intake & Output 07/20/18 07/21/18 07/22/18 06:59 06:59 06:59 Weight 78.018 kg General appearance: PRESENT: other - Moderate distress Head exam: PRESENT: atraumatic Eye exam: PRESENT: PERRLA Neck exam: ABSENT: carotid bruit, JVD, lymphadenopathy, thyromegaly Respiratory exam: PRESENT: decreased breath sounds Cardiovascular exam: PRESENT: irregular rhythm, systolic murmur, tachycardia GI/Abdominal exam: PRESENT: normal bowel sounds, soft. ABSENT: distended, guarding, mass, organolmegaly, rebound, tenderness Extremities exam: PRESENT: full ROM. ABSENT: calf tenderness, clubbing, pedal edema Neurological exam: PRESENT: alert, awake, oriented to person, oriented to place, oriented to time, oriented to situation, CN II-XII grossly intact. ABSENT: motor sensory deficit Psychiatric exam: PRESENT: appropriate affect, normal mood. ABSENT: homicidal ideation, suicidal ideation Results Laboratory Results: 07/21/18 14:24 07/21/18 12:20 07/21/18 07/21/18 07/21/18 12:20 12:20 12:20 WBC Cancelled RBC Cancelled Hgb Cancelled Hct Cancelled MCV Cancelled MCH Cancelled MCHC Cancelled RDW Cancelled Plt Count Cancelled Seg Neutrophils % Cancelled Lymphocytes % Cancelled Monocytes % Cancelled Eosinophils % Cancelled Basophils % Cancelled Absolute Neutrophils Cancelled Absolute Lymphocytes Cancelled Absolute Monocytes Cancelled Absolute Eosinophils Cancelled Absolute Basophils Cancelled VBG pH VBG pCO2 VBG HCO3 VBG Base Excess Sodium 135.3 L Potassium 3.0 L* Chloride 100 Carbon Dioxide 28 Anion Gap 7 BUN 12 Creatinine 0.95 Est GFR ( Amer) > 60 Est GFR (Non-Af Amer) 58 L Glucose 70 L Calcium 7.7 L Total Bilirubin 0.7 AST 48 H ALT 49 Alkaline Phosphatase 98 Total Protein 4.8 L Albumin 2.1 L Urine Color YELLOW Urine Appearance SLIGHTLY-CLOUDY Urine pH 6.0 Ur Specific [place] 1.017 Urine Protein NEGATIVE Urine Glucose (UA) NEGATIVE Urine Ketones NEGATIVE Urine Blood NEGATIVE Urine Nitrite NEGATIVE Ur Leukocyte Esterase NEGATIVE Urine WBC (Auto) 3 Urine RBC (Auto) 1 07/21/18 07/21/18 13:25 14:24 WBC 5.4 RBC 3.94 Hgb 11.7 L Hct 34.7 L MCV 88 MCH 29.7 MCHC 33.6 RDW 14.0 Plt Count 180 Seg Neutrophils % 65.4 Lymphocytes % 23.1 Monocytes % 9.9 Eosinophils % 0.3 Basophils % 1.3 Absolute Neutrophils 3.5 Absolute Lymphocytes 1.2 Absolute Monocytes 0.5 Absolute Eosinophils 0.0 Absolute Basophils 0.1 VBG pH 7.38 VBG pCO2 52.4 VBG HCO3 30.5 VBG Base Excess 4.4 Sodium Potassium Chloride Carbon Dioxide Anion Gap BUN Creatinine Est GFR ( Amer) Est GFR (Non-Af Amer) Glucose Calcium Total Bilirubin AST ALT Alkaline Phosphatase Total Protein Albumin Urine Color Urine Appearance Urine pH Ur Specific [place] Urine Protein Urine Glucose (UA) Urine Ketones Urine Blood Urine Nitrite Ur Leukocyte Esterase Urine WBC (Auto) Urine RBC (Auto) 07/21/18 07/21/18 07/21/18 12:20 13:25 13:25 Creatine Kinase 67 63 CK-MB (CK-2) 1.99 Troponin I 0.094 NT-Pro-B Natriuret Pep 6620 H Impressions: Chest X-Ray 07/21/18 11:44 IMPRESSION: Pleural effusions. Asymmetric edema or pneumonia. Chest CT 07/21/18 12:31 IMPRESSION: 1. Bilateral pleural effusions with mild compressive atelectasis in the lower lobes. 2. Cardiomegaly. Minimal pericardial effusion. 3. Possible 3 cm left renal mass. Assessment and Plan - Diagnosis (1) Atrial fibrillation with RVR Is this a current diagnosis for this admission?: Yes Plan: 07/21/2018-patient is going to be admitted for atrial fibrillation RVR he is going to be inpatient she is going to be in IMCU. To continue Cardizem drip to titrate to keep the heart rate less than 100. Restart Eliquis. GI prophylaxis was requested. Cardiac enzymes x3 will be requested. Cardiology consult is requested. (2) COPD (chronic obstructive pulmonary disease) Qualifiers: Is this a current diagnosis for this admission?: No Plan: 07/21/2018 patient has history of COPD on 2 L oxygen she is denying she is smoking. Plan is to restart her home medications put her back on 2 L oxygen and start on CPAP at night. CT scan negative for pneumonia. But shows bilateral pleural effusions with cardiomegaly. (3) Pleural effusion Is this a current diagnosis for this admission?: Yes Plan: 06/23/2018-CT scan shows bilateral pleural effusions most likely secondary to CHF. BNP is 6900. (4) Hypokalemia Is this a current diagnosis for this admission?: Yes Plan: 07/21/2018 patient's potassium is 3.0 started on potassium supplementation hypo kalemia may be secondary to diuretic use. (5) CHF (congestive heart failure) Is this a current diagnosis for this admission?: No Plan: 07/21/2018 patient has history of congestive heart failure latest echocardiogram shows normal left ventricular systolic function most likely she has diastolic dysfunction which was chronic. BNP is 6900 and has bilateral pleural effusions on the CT scan. And is to resume the Lasix. 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 (7) Chronic respiratory failure with hypoxia, on home O2 therapy Is this a current diagnosis for this admission?: No Plan: 07/21/2018 patient is admitted with acute exacerbation of COPD leading to acute on chronic respiratory failure. Today 77% on 2 L. Plan is to put her on BiPAP as needed basis. - Time Time Spent with patient: 15-24 minutes Medications reviewed and adjusted accordingly: Yes Anticipated discharge: Home with Homehealth
[2018-07-21] MEDS ORDERED: DEXTROSE 50%-WATER 25 GM/50 ML DISP.SYRIN IV PRN ×2 (15:49)
[2018-07-21] MEDS ORDERED: GLUCAGON,HUMAN RECOMB 1 MG INJ IM PRN (15:49)
[2018-07-21] MEDS ORDERED: DEXTROSE 40% GEL 15 GM TUBE PO PRN ×2 (15:49)
[2018-07-21] MEDS ORDERED: SENNOSIDES/DOCUSATE 8.6-50 MG 1 EACH TABLET PO PRN (17:02)
[2018-07-21] MEDS ORDERED: DOCUSATE SODIUM 100 MG CAPSULE PO SCH (18:00)
[2018-07-21] MEDS ORDERED: MONTELUKAST SODIUM 10 MG TABLET PO SCH (18:00)
[2018-07-21] MEDS ORDERED: APIXABAN 2.5 MG TABLET PO SCH (18:00)
[2018-07-21] MEDS ORDERED: BUSPIRONE HCL 10 MG TABLET PO SCH (18:00)
[2018-07-21] MEDS: BUDESONIDE NEB 0.5 MG/2 ML AMPUL NEB SCH (19:53)
[2018-07-21] MEDS: BUSPIRONE HCL 10 MG TABLET PO SCH (21:49)
[2018-07-21] MEDS: DOCUSATE SODIUM 100 MG CAPSULE PO SCH (21:50)
[2018-07-21] MEDS: FAMOTIDINE 20 MG TABLET PO SCH (21:50)
[2018-07-21] MEDS: ATORVASTATIN CALCIUM 80 MG TABLET PO SCH (21:50)
[2018-07-21] MEDS: MONTELUKAST SODIUM 10 MG TABLET PO SCH (21:51)
[2018-07-21] MEDS: APIXABAN 2.5 MG TABLET PO SCH (21:51)
[2018-07-21] MEDS ORDERED: (PENDING PHARMACY ID) (Oxycodone Myristate [Xtampza Er] 13.5 MG) PO SCH (22:00)
[2018-07-21] MEDS ORDERED: SUVOREXANT 5 MG PO SCH (22:00)
[2018-07-21] MEDS: MELATONIN 3 MG TABLET PO SCH (22:47)
--- NOTE | 2018-07-21 22:48 | EKG REPORT ---
SEVERITY:- ABNORMAL ECG - A-FLUTTER VS PAT W/ VARIED AV BLOCK, A-RATE 230 LEFT BUNDLE BRANCH BLOCK : Confirmed by: Junior Werner 21-Jul-2018 22:46:53
[2018-07-22] MEDS: DILTIAZEM HCL/D5W 125 MG/125 ML RTUINJ IV PRN ×2 (00:30→10:41)
[2018-07-22 06:41] LABS: ARTERIAL BLOOD HCO3 27.3 mmol/L (20-24); ARTERIAL BLOOD PCO2 36.4 mmHg (35-45); ARTERIAL BLOOD PH 7.49 (7.35-7.45); ARTERIAL BLOOD TOTAL CO2 28.4 mmol/L (21-25)
[2018-07-22 06:45] LABS: ARTERIAL BLOOD FIO2 36%
[2018-07-22 07:41] LABS: ABSOLUTE BASOPHILS # (AUTO) 0.1 10^3/uL (0.0-0.2); ABSOLUTE LYMPHOCYTES (AUTO) 1.4 10^3/uL (0.5-4.7); ABSOLUTE MONOCYTES (AUTO) 0.5 10^3/uL (0.1-1.4); ABSOLUTE NEUT (AUTO) 4.3 10^3/uL (1.7-8.2); BASOPHILS % (AUTO) 0.8 % (0-2); EOSINOPHILS % (AUTO) 0.4 % (0-6); HEMATOCRIT 33.2 % (36.0-47.0); HEMOGLOBIN 11.3 g/dL (12.0-15.5); LYMPHOCYTES % (AUTO) 22.8 % (13-45); MEAN CORPUSCULAR HEMOGLOBIN 29.9 pg (27.0-33.4); MEAN CORPUSCULAR VOLUME 88 fl (80-97); MONOCYTES % (AUTO) 8.2 % (3-13); PLATELET COUNT 174 10^3/uL (150-450); RED BLOOD COUNT 3.78 10^6/uL (3.72-5.28); SEGMENTED NEUTROPHILS % (AUTO) 67.8 % (42-78); TOTAL CELLS COUNTED % (AUTO) 100 %; WHITE BLOOD COUNT 6.3 10^3/uL (4.0-10.5)
[2018-07-22 07:59] LABS: ALANINE AMINOTRANSFERASE 50 U/L (9-52); ALBUMIN 1.9 g/dL (3.5-5.0); ALKALINE PHOSPHATASE 94 U/L (38-126); ASPARTATE AMINO TRANSFERASE 41 U/L (14-36); BILIRUBIN,DIRECT 0.2 mg/dL (0.0-0.4); BILIRUBIN,TOTAL 0.5 mg/dL (0.2-1.3); BLOOD UREA NITROGEN 12 mg/dL (7-20); CALCIUM 7.5 mg/dL (8.4-10.2); GLUCOSE 78 mg/dL (75-110); TOTAL PROTEIN 4.5 g/dL (6.3-8.2); TRIGLYCERIDES 73 mg/dL (<150)
[2018-07-22 08:09] LABS: CARBON DIOXIDE 28 mmol/L (22-30); CHLORIDE 102 mmol/L (98-107)
[2018-07-22 08:10] LABS: DIRECT LDL 48 mg/dL (<100)
[2018-07-22 08:15] LABS: ANION GAP 4 (5-19)
[2018-07-22] MEDS: INSULIN REG, HUMAN 100 UNIT/ML 3 ML VIAL (PYX) SUBCUT SCH (09:08)
[2018-07-22] MEDS: BUDESONIDE NEB 0.5 MG/2 ML AMPUL NEB SCH ×2 (09:29→20:39)
[2018-07-22] MEDS ORDERED: [UNRECOGNIZED DRUG - OTHER] PO SCH (10:00)
[2018-07-22] MEDS ORDERED: ENOXAPARIN SODIUM INJ 40 MG/0.4 ML DISP.SYRIN SUBCUT SCH (10:00)
[2018-07-22] MEDS ORDERED: [UNRECOGNIZED DRUG - OTHER] PO SCH (10:00)
[2018-07-22] MEDS: DOCUSATE SODIUM 100 MG CAPSULE PO SCH ×2 (10:27→22:02)
[2018-07-22] MEDS: FLUTICASONE/VILANTEROL 100-25 MCG/DOSE IH SCH (10:27)
[2018-07-22] MEDS: BUSPIRONE HCL 10 MG TABLET PO SCH ×2 (10:27→22:02)
[2018-07-22] MEDS: DILTIAZEM HCL 240 MG CAPSULE.CR PO SCH (10:28)
[2018-07-22] MEDS: LACTOBACILLUS ACIDOPHILUS 250 MG TAB PO SCH (10:28)
[2018-07-22] MEDS: LEVOTHYROXINE SODIUM 0.1 MG TABLET PO SCH (10:28)
[2018-07-22] MEDS: DULOXETINE HCL 30 MG CAPSULE.DR PO SCH (10:28)
[2018-07-22] MEDS: FUROSEMIDE 20 MG TABLET PO SCH (10:28)
[2018-07-22] MEDS: FAMOTIDINE 20 MG TABLET PO SCH ×2 (10:29→22:02)
[2018-07-22] MEDS: MULTIVITAMIN TABLET PO SCH (10:29)
[2018-07-22] MEDS: APIXABAN 2.5 MG TABLET PO SCH ×2 (10:29→22:03)
[2018-07-22] MEDS: NICOTINE 21 MG/24 HR PATCH.TD24 TD SCH (10:29)
[2018-07-22] MEDS: ESCITALOPRAM OXALATE 10 MG TABLET PO SCH (10:29)
[2018-07-22] MEDS ORDERED: (PENDING PHARMACY ID) (Sennosides [Senna Laxative] 8.6 MG) PO PRN (11:06)
--- NOTE | 2018-07-22 12:36 | PDOC PROGRESS REPORT ---
Subjective Progress Note for:: 07/22/18 Subjective:: 73 year old female with history of atrial fibrillation congestive heart failure, hypertension, COPD on 2 L oxygen CPAP at night depression came to the emergency room with history of shortness of breath for 1 day duration associated with loose stools twice a day for the last 3 days. No chest pains as per the patient. No fever noted. No nausea no vomiting's. Complains of lightheadedness. Patient states she is compliant with her medications. She is also complaining of palpitations and feeling like her heart is racing away. Workup was done in the ER BNP was 6900, EKG found to be in A. fib with RVR patient was started on Cardizem drip medical consult was called for admission. 07/22/2018-patient is doing much better today. According to the patient shortne ss of breath is much improved. Still in A. fib with rapid ventricular rate. Heart rate is around 120. Patient presently on 5 mg of Cardizem drip. To start on Cardizem CD 240 mg p.o. daily today. She is comfortably in the bed denies any complaints. She wants to go to a rehab facility for short-term physical therapy. Reason For Visit: ATRIAL FLUTTER Physical Exam Vital Signs: Temp Pulse Resp BP Pulse Ox 98.4 F 124 H 16 117/90 H 94 07/22/18 08:00 07/22/18 09:37 07/22/18 09:37 07/22/18 08:00 07/22/18 09:37 Intake & Output 07/21/18 07/22/18 07/23/18 06:59 06:59 06:59 Intake Total 298 51 Balance 298 51 Weight 83 kg General appearance: PRESENT: no acute distress Head exam: PRESENT: atraumatic Eye exam: PRESENT: PERRLA Mouth exam: PRESENT: moist, tongue midline Teeth exam: PRESENT: poor dentation Neck exam: ABSENT: carotid bruit, JVD, lymphadenopathy, thyromegaly Respiratory exam: PRESENT: decreased breath sounds Cardiovascular exam: PRESENT: irregular rhythm, systolic murmur, tachycardia GI/Abdominal exam: PRESENT: normal bowel sounds, soft. ABSENT: distended, guarding, mass, organolmegaly, rebound, tenderness Extremities exam: PRESENT: full ROM. ABSENT: calf tenderness, clubbing, pedal edema Neurological exam: PRESENT: alert, awake, oriented to person, oriented to place, oriented to time, oriented to situation, CN II-XII grossly intact. ABSENT: motor sensory deficit Psychiatric exam: PRESENT: appropriate affect, normal mood. ABSENT: homicidal ideation, suicidal ideation Results Laboratory Results: 07/22/18 07:07 07/22/18 07:07 07/21/18 07/21/18 07/21/18 12:20 12:20 12:20 WBC Cancelled RBC Cancelled Hgb Cancelled Hct Cancelled MCV Cancelled MCH Cancelled MCHC Cancelled RDW Cancelled Plt Count Cancelled Seg Neutrophils % Cancelled Lymphocytes % Cancelled Monocytes % Cancelled Eosinophils % Cancelled Basophils % Cancelled Absolute Neutrophils Cancelled Absolute Lymphocytes Cancelled Absolute Monocytes Cancelled Absolute Eosinophils Cancelled Absolute Basophils Cancelled Carbonic Acid HCO3/H2CO3 Ratio ABG pH ABG pCO2 ABG pO2 ABG HCO3 ABG O2 Saturation ABG Base Excess VBG pH VBG pCO2 VBG HCO3 VBG Base Excess FiO2 Sodium 135.3 L Potassium 3.0 L* Chloride 100 Carbon Dioxide 28 Anion Gap 7 BUN 12 Creatinine 0.95 Est GFR ( Amer) > 60 Est GFR (Non-Af Amer) 58 L Glucose 70 L Calcium 7.7 L Magnesium Total Bilirubin 0.7 AST 48 H ALT 49 Alkaline Phosphatase 98 Total Protein 4.8 L Albumin 2.1 L Triglycerides Cholesterol LDL Cholesterol Direct VLDL Cholesterol HDL Cholesterol TSH Urine Color YELLOW Urine Appearance SLIGHTLY-CLOUDY Urine pH 6.0 Ur Specific [place] 1.017 Urine Protein NEGATIVE Urine Glucose (UA) NEGATIVE Urine Ketones NEGATIVE Urine Blood NEGATIVE Urine Nitrite NEGATIVE Ur Leukocyte Esterase NEGATIVE Urine WBC (Auto) 3 Urine RBC (Auto) 1 07/21/18 07/21/18 07/22/18 13:25 14:24 06:25 WBC 5.4 RBC 3.94 Hgb 11.7 L Hct 34.7 L MCV 88 MCH 29.7 MCHC 33.6 RDW 14.0 Plt Count 180 Seg Neutrophils % 65.4 Lymphocytes % 23.1 Monocytes % 9.9 Eosinophils % 0.3 Basophils % 1.3 Absolute Neutrophils 3.5 Absolute Lymphocytes 1.2 Absolute Monocytes 0.5 Absolute Eosinophils 0.0 Absolute Basophils 0.1 Carbonic Acid 1.10 HCO3/H2CO3 Ratio 24:1 ABG pH 7.49 H ABG pCO2 36.4 ABG pO2 84.0 ABG HCO3 27.3 H ABG O2 Saturation 97.0 ABG Base Excess 4.0 VBG pH 7.38 VBG pCO2 52.4 VBG HCO3 30.5 VBG Base Excess 4.4 FiO2 36% Sodium Potassium Chloride Carbon Dioxide Anion Gap BUN Creatinine Est GFR ( Amer) Est GFR (Non-Af Amer) Glucose Calcium Magnesium Total Bilirubin AST ALT Alkaline Phosphatase Total Protein Albumin Triglycerides Cholesterol LDL Cholesterol Direct VLDL Cholesterol HDL Cholesterol TSH Urine Color Urine Appearance Urine pH Ur Specific [place] Urine Protein Urine Glucose (UA) Urine Ketones Urine Blood Urine Nitrite Ur Leukocyte Esterase Urine WBC (Auto) Urine RBC (Auto) 07/22/18 07/22/18 07/22/18 07:07 07:07 07:07 WBC 6.3 RBC 3.78 Hgb 11.3 L Hct 33.2 L MCV 88 MCH 29.9 MCHC 34.0 RDW 14.0 Plt Count 174 Seg Neutrophils % 67.8 Lymphocytes % 22.8 Monocytes % 8.2 Eosinophils % 0.4 Basophils % 0.8 Absolute Neutrophils 4.3 Absolute Lymphocytes 1.4 Absolute Monocytes 0.5 Absolute Eosinophils 0.0 Absolute Basophils 0.1 Carbonic Acid HCO3/H2CO3 Ratio ABG pH ABG pCO2 ABG pO2 ABG HCO3 ABG O2 Saturation ABG Base Excess VBG pH VBG pCO2 VBG HCO3 VBG Base Excess FiO2 Sodium 134.0 L Potassium 3.0 L* Chloride 102 Carbon Dioxide 28 Anion Gap 4 L BUN 12 Creatinine 0.88 Est GFR ( Amer) > 60 Est GFR (Non-Af Amer) > 60 Glucose 78 Calcium 7.5 L Magnesium 1.5 L Total Bilirubin 0.5 AST 41 H ALT 50 Alkaline Phosphatase 94 Total Protein 4.5 L Albumin 1.9 L Triglycerides 73 Cholesterol 90.30 LDL Cholesterol Direct 48 VLDL Cholesterol 15.0 HDL Cholesterol 38 L TSH 50.90 H Urine Color Urine Appearance Urine pH Ur Specific [place] Urine Protein Urine Glucose (UA) Urine Ketones Urine Blood Urine Nitrite Ur Leukocyte Esterase Urine WBC (Auto) Urine RBC (Auto) 07/21/18 07/21/18 07/21/18 12:20 13:25 13:25 Creatine Kinase 67 63 CK-MB (CK-2) 1.99 Troponin I 0.094 NT-Pro-B Natriuret Pep 6620 H 07/21/18 07/21/18 07/22/18 19:05 19:05 01:00 Creatine Kinase 56 55 CK-MB (CK-2) Troponin I 0.094 NT-Pro-B Natriuret Pep 07/22/18 07/22/18 07/22/18 01:00 07:07 07:07 Creatine Kinase 53 CK-MB (CK-2) Troponin I 0.095 0.091 NT-Pro-B Natriuret Pep 07/22/18 07:07 Creatine Kinase CK-MB (CK-2) Troponin I NT-Pro-B Natriuret Pep 6520 H Impressions: Chest X-Ray 07/21/18 11:44 IMPRESSION: Pleural effusions. Asymmetric edema or pneumonia. Chest CT 07/21/18 12:31 IMPRESSION: 1. Bilateral pleural effusions with mild compressive atelectasis in the lower lobes. 2. Cardiomegaly. Minimal pericardial effusion. 3. Possible 3 cm left renal mass. Assessment and Plan - Diagnosis (1) Atrial fibrillation with RVR Is this a current diagnosis for this admission?: Yes Plan: 07/21/2018-patient is going to be admitted for atrial fibrillation RVR he is going to be inpatient she is going to be in IMCU. To continue Cardizem drip to titrate to keep the heart rate less than 100. Restart Eliquis. GI prophylaxis was requested. Cardiac enzymes x3 will be requested. Cardiology consult is requested. 07/22/2018-patient admitted with atrial fibrillation with RVR most likely secondary to COPD exacerbation. She is on Cardizem drip until 1130 this morning started on a Cardizem CD 240 mg p.o. daily Cardizem drip was discontinued order was placed for Cardizem 10 mg IV every 6 as needed for the heart rate more than 110. Patient has chronic atrial fibrillation she is on Eliquis at home which was resumed during the hospital stay. (2) COPD (chronic obstructive pulmonary disease) Qualifiers: Is this a current diagnosis for this admission?: No Plan: 07/21/2018 patient has history of COPD on 2 L oxygen she is denying she is smoking. Plan is to restart her home medications put her back on 2 L oxygen and start on CPAP at night. CT scan negative for pneumonia. But shows bilateral pleural effusions with cardiomegaly. 2018 patient has history of COPD she denies history of smoking on 2 L oxygen at home pulse ox here today is 6% on 4 L. She is also on CPAP at night. Chest x-ray shows bilateral pleural effusions with cardiomegaly. CT scan is negative for pneumonia. Plan is to continue Pulmicort nebulizations twice a day (3) Pleural effusion Is this a current diagnosis for this admission?: Yes Plan: 07/21/2018-CT scan shows bilateral pleural effusions most likely secondary to CHF. BNP is 6900. 07/22/2018 CT scan of the chest shows bilateral pleural effusions most likely secondary to congestive heart failure BNP came down to 6420 today. Lasix was resumed today. (4) Hypokalemia Is this a current diagnosis for this admission?: Yes Plan: 07/21/2018 patient's potassium is 3.0 started on potassium supplementation hypokalemia may be secondary to diuretic use. 07/22/2018-patient's potassium level is 3.0 to give her 40 mEq of K rider today and continue p.o. potassium. Hypokalemia most likely secondary to diuretic therapy. (5) CHF (congestive heart failure) Is this a current diagnosis for this admission?: No Plan: 07/21/2018 patient has history of congestive heart failure latest echocardiogram shows normal left ventricular systolic function most likely she has diastolic dysfunction which was chronic. BNP is 6900 and has bilateral pleural effusions on the CT scan. And is to resume the Lasix. 07/22/2018-patient has history of congestive heart failure, latest echocardiogram shows normal left ventricular systolic function but she has stage III/IV diastolic dysfunction which was chronic in nature. CT scan shows cardiomegaly with bilateral pleural effusions and elevated BNP. (6) Diabetes Qualifiers: Diabetes mellitus type: type 2 Diabetes mellitus longterm insulin use: without intermediate frame tender use Diabetes mellitus complication status: without complication Qualified Code(s): E11.9 - Type 2 diabetes mellitus without complications Is this a current diagnosis for this admission?: No Plan: 07/21/2018-patient has history of diabetes mellitus not on home medications plan to put her on sliding scale to check her hemoglobin A1c tomorrow. 07/22/2018-patient has history of type 2 diabetes mellitus latest blood sugar is 91 presently on insulin sliding scale before meals and at bedtime plan is to continue the present management. (7) Chronic respiratory failure with hypoxia, on home O2 therapy Is this a current diagnosis for this admission?: No Plan: 07/21/2018 patient is admitted with acute exacerbation of COPD leading to acute on chronic respiratory failure. Today 77% on 2 L. Plan is to put her on BiPAP as needed basis. 07/22/2018 patient has history of COPD on 2 L oxygen he admitted with exacerbation of COPD in the emergency room pulse ox is 77% on 2 L it was improved to 94% on 4 L today. plan is to continue the present management. (8) Type 2 diabetes with ulcer of lower extremity or foot Is this a current diagnosis for this admission?: No Plan: 07/22/2018 patient has unstageable ulcers on toes on both feet. Peripheral pulses are present. No signs of infection seen. Plan to arrange for the dry dr essing heel protection and continue to closely monitor the condition. - Time Time Spent with patient: 15-24 minutes Medications reviewed and adjusted accordingly: Yes Anticipated discharge: SNF
[2018-07-22] MEDS ORDERED: SENNOSIDES/DOCUSATE 8.6-50 MG 1 EACH TABLET PO PRN (12:39)
[2018-07-22] MEDS: POTASSI CL 20 MEQ/50 ML RIDER 20 MEQ/50 ML RTUPB IV SCH ×2 (14:18→18:47)
[2018-07-22] MEDS: ACETAMINOPHEN 325 MG TABLET PO PRN (14:26)
[2018-07-22] MEDS ORDERED: BUSPIRONE HCL 10 MG TABLET PO SCH (18:00)
[2018-07-22] MEDS ORDERED: POTASSIUM CHLORIDE 20 MEQ/50 ML RTU IV ONE (18:00)
[2018-07-22] MEDS: ATORVASTATIN CALCIUM 80 MG TABLET PO SCH (22:02)
[2018-07-22] MEDS: MONTELUKAST SODIUM 10 MG TABLET PO SCH (22:03)
[2018-07-22] MEDS: MELATONIN 3 MG TABLET PO SCH (22:03)
--- NOTE | 2018-07-22 22:57 | EKG REPORT ---
SEVERITY:- ABNORMAL ECG - ATRIAL FIBRILLATION MULTIFORM VENTRICULAR PREMATURE COMPLEXES IVCD, CONSIDER ATYPICAL LBBB : Confirmed by: Junior Werner 22-Jul-2018 22:57:05
--- NOTE | 2018-07-22 22:57 | EKG REPORT ---
SEVERITY:- ABNORMAL ECG - SINUS TACHYCARDIA vs PAT WITH 2:1 CONDUCTION, REC REPEAT EKG LEFT BUNDLE BRANCH BLOCK : Confirmed by: Junior Werner 22-Jul-2018 22:56:35
--- NOTE | 2018-07-22 23:15 | PDOC CONSULTATION ---
Consultation-Blank Consultation: CARDIOLOGY CONSULTATION by Dr. Kristen Israel on 07/22/2018. Patient seen at 8 AM on 07/22/2018. REASON FOR CONSULTATION: Atrial fibrillation with rapid ventricular response. HISTORY OF PRESENT ILLNESS: Patient is a 73-year-old female with multiple medical problems admitted with increasing shortness of breath and rapid palpitations. The patient was found to have acute exacerbation COPD and also atrial fibrillation with rapid ventricular response. The patient denies any chest pain or discomfort. There is no TIA CVA symptoms. The patient seems to be in atrial fibrillation with the patient being on a Cardizem drip ventricular response is about 110-120 bpm. The patient has chronic orthopnea. There is no chest pain or discomfort. The patient is a cough but is unable to bring up any sputum. There is no TIA CVA symptoms. The patient has a history of proximal atrial fibrillation. And was maintained in sinus rhythm in the past on amiodarone. She was admitted and September [id number] with acute exacerbation of COPD. At that time a PFT suggestive significant restrictive lung disease, and a DLCO which is 53%. And amiodarone toxicity was suspected and the patient's amiodarone was discontinued. Subsequently due to the patient's having had chest pains a stress test was obtained which was abnormal and was possible reversible ischemia. [facility] which showed nonobstructive coronary artery disease. She has a history of hypertension. History of COPD, and non-Hodgkin's lymphoma. 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 She has not followed up on her treatment for her non-Hodgkin's lymphoma, although she states that it has been cured. She has no history of diabetes mellitus. She has a history of GERD and hypothyroidism and is on replacement therapy with 6 thyroid replacement. There is no history of TIA CVA. She also has chronic kidney disease stage III. This is worsened now and the patient's has acute on chronic renal failure, most likely secondary to patient being relatively hypotensive in the emergency room with a blood pressure ranging from anywhere from 80 systolic to 90 systolic, and atrial fibrillation with rapid ventricular response. PAST SURGICAL HISTORY: History of gastric bypass surgery, cholecystectomy, appendectomy, tonsillectomy and adenoidectomy. She also has a history of surgery in her throat she has also had a tummy tuck surgery. FAMILY HISTORY: Is positive for coronary artery disease in the father but father of cancer. ALLERGIES: She is allergic to codeine Haldol, sulfa, beta-blockers she gets bradycardia but the patient is tolerating esmolol at present in the past she was able to tolerate Coreg. She is also on she is also allergic to zolpidem tartrate [Ambien]. SOCIAL HISTORY: There is no history of EtOH abuse the patient is non-smoker. DISPOSITION: The patient is a DNR. Her daughter is her surrogate healthcare decision maker. REVIEW SYSTEMS: Constitutional denies any fever chills or rigors. Complains of generalized fatigue and weakness. HEAD: Denies headaches or head injury. EYES: No history of amblyopia diplopia no history of amaurosis fugax. EARS: No history of hearing loss no history of tinnitus no history of recurrent ear infections. NOSE: No history of hayfever. No history of nosebleeds no history of nasal polyps. MOUTH: No history of altered taste sensation. No ulcers in the mouth. No bleeding from the gums. THROAT: No odynophagia or dysphagia. No history of recurrent sore throats. The patient has hoarseness of voice, which is chronic. This is due to recurrent intubations, causing local cord paralysis, when she had a non-Hodgkin's lymphoma for various diagnostic/biopsy purposes. SKIN: There are no skin there is no history of pruritus there is no history of yellowish discoloration of the skin. There is no psoriasis or history of skin cancer. NECK: Denies any neck pain or swelling in the neck. LUNGS: History of COPD present due to a history of asthma. The patient has never smoked. There is no history of sleep apnea no history of pulmonary embolism. No symptoms of acute exacerbation of COPD. No recent symptoms of upper or lower respiratory tract infections, although chest x-ray the differential is congestive heart failure versus multifocal pneumonia in both lungs. There is no hemoptysis there is no pleuritic chest pain. CARDIAC: History of hypertension present history of paroxysmal atrial fibrillation at present there is a breakthrough atrial fibrillation with rapid ventricular response. This is most likely secondary to iatrogenic hyperthyroidism. Past history of lung toxicity with amiodarone with a reduced DLCO. She has a past history of congestive heart failure when she had atrial fibrillation with rapid ventricular response. She also has a history of chronic left bundle branch block pattern. She had her echo in the August/October 2017 showed normal left ejection fraction, grade 2 there is moderate diastolic dysfunction. Note that the patient was supposed to be on chronic anticoagulation therapy, but the patient has not been taking Eliquis at home. She does have recent palpitations due to rapid atrial fibrillation. There is no syncope, she has generalized fatigue and generalized weakness and inability to stand, which is usually when she goes into atrial fibrillation with rapid ventricular response. ENDOCRINE: There is no history of diabetes mellitus. No history of polydipsia polyuria. History of hypothyroidism on replacement at present patient has iatrogenic hypothyroidism with a low TSH levels and elevated T4 levels. There is no history of heat or cold intolerance. METABOLIC: She has no history of hyperlipidemia her lipid levels are very good. She has history of obesity in the past which has been helped a gastric bypass/bariatric surgery. There is no history of gout. RENAL: She has a history of chronic kidney disease stage III at present this is worsened. No symptoms of hematuria pyuria or dysuria. No symptoms of UTI. MUSCULOSKELETAL: Denies any history of arthritis or collagen vascular disease. GI: History of GERD present no history of fatty food intolerance no history of GI bleed no history of altered bowel movements. No history of ascites or jaundice. No history of hepatitis. No history of cirrhosis of the liver. No history of altered bowel movements. DRAFTER ELECTRONIC: No history of TIA or CVA no history of gait imbalance no history of headaches migraines or seizures. PSYCHIATRIC. She has a history of depression which is well controlled with medication. There is no history of anxiety no history of suicidal ideation. No history of homicidal ideation. VASCULAR: No history of calf or buttock claudication no history of DVT. HEMATOLOGICAL: History of non- Hodgkin's lymphoma stage II in the past and the patient states has been cured but she has not followed up with a oncologist. PHYSICAL EXAMINATION: The patient appears to be chronically ill. At present in no major distress. She is mildly obese he is mildly obese. Selected Entries 07/22/18 07/22/18 08:00 09:37 Temperature 98.4 F Temperature Oral Source Pulse Rate 92 Respiratory 20 Rate Blood Pressure 117/90 H [R arm] Blood Pressure 99 Mean [R arm] Blood Pressure Supine Position [R arm ] O2 Sat by Pulse 96 Oximetry Oxygen Delivery Nasal Cannula Method ( includes room air) Oxygen Flow 4 Rate HEAD: Atraumatic, normocephalic. EYES: Pupils equal round and reactive to light, extraocular movements intact, sclera anicteric, conjunctiva are normal. ENT: TMs normal, nares patent, oropharynx clear without exudates. Moist mucous membranes. NECK: Normal range of motion, supple without lymphadenopathy or JVD. Carotids are equal there is no bruits. There is no thyromegaly. There is no accessory muscles of respiration in use. Trachea central LUNGS: There is diminished air entry and prolonged expiration. There is occasional scattered rhonchi. There are no wet rales of CHF. On palpation there is no chest wall tenderness. HEART: S1-S2 is heard. S1 is of normal intensity. There is no S3 gallop. There is no S4 gallop. There is systolic murmur left sternal border and apex without radiation. There is no rub.. ABDOMEN: Soft, nontender, normoactive bowel sounds. There is no hepatosplenic megaly no guarding, no rebound. No masses appreciated. EXTREMITIES: Normal range of motion, no pitting or edema. No clubbing or cyanosis. Femorals are well felt. There is no femoral bruits. Leg pulses are well felt. There is no DVT or cellulitis. There is no calf tenderness NEUROLOGICAL: Cranial nerves II through XII grossly intact. Normal speech, normal gait. The patient is awake alert oriented x3 with no focal deficits. PSYCH: Normal mood, normal affect. The patient judgment and insight are intact SKIN: Warm, Dry, normal turgor, no rashes or lesions noted. There is no petechia or ecchymosis 07/21/18 07/21/18 07/21/18 12:20 13:25 13:25 WBC RBC Hgb Hct MCV MCH MCHC RDW Plt Count Seg Neutrophils % Lymphocytes % Monocytes % PT 12.5 INR 0.89 APTT 30.0 Carbonic Acid HCO3/H2CO3 Ratio ABG pH ABG pCO2 ABG pO2 ABG HCO3 ABG Total CO2 ABG O2 Saturation ABG Base Excess Sodium 135.3 L Potassium 3.0 L* Chloride 100 Carbon Dioxide 28 Anion Gap 7 BUN 12 Creatinine 0.95 Est GFR (Non-Af Amer) 58 L Glucose 70 L Calcium 7.7 L Magnesium Total Bilirubin 0.7 Direct Bilirubin 0.3 Neonat Total Bilirubin Not Reportable Neonat Direct Bilirubin Not Reportable Neonat Indirect Bili AST 48 H ALT 49 Alkaline Phosphatase 98 Creatine Kinase 67 CK-MB (CK-2) 1.99 Troponin I 0.094 NT-Pro-B Natriuret Pep Total Protein 4.8 L Albumin 2.1 L Triglycerides Cholesterol LDL Cholesterol Direct VLDL Cholesterol HDL Cholesterol TSH 07/21/18 07/22/18 07/22/18 19:05 06:25 07:07 WBC 6.3 RBC 3.78 Hgb 11.3 L Hct 33.2 L MCV 88 MCH 29.9 MCHC 34.0 RDW 14.0 Plt Count 174 Seg Neutrophils % 67.8 Lymphocytes % 22.8 Monocytes % 8.2 PT INR APTT Carbonic Acid 1.10 HCO3/H2CO3 Ratio 24:1 ABG pH 7.49 H ABG pCO2 36.4 ABG pO2 84.0 ABG HCO3 27.3 H ABG Total CO2 28.4 H ABG O2 Saturation 97.0 ABG Base Excess 4.0 Sodium Potassium Chloride Carbon Dioxide Anion Gap BUN Creatinine Est GFR (Non-Af Amer) Glucose Calcium Magnesium Total Bilirubin Direct Bilirubin Neonat Total Bilirubin Neonat Direct Bilirubin Neonat Indirect Bili AST ALT Alkaline Phosphatase Creatine Kinase CK-MB (CK-2) Troponin I 0.094 NT-Pro-B Natriuret Pep Total Protein Albumin Triglycerides Cholesterol LDL Cholesterol Direct VLDL Cholesterol HDL Cholesterol TSH 07/22/18 07/22/18 07/22/18 07:07 07:07 07:07 WBC RBC Hgb Hct MCV MCH MCHC RDW Plt Count Seg Neutrophils % Lymphocytes % Monocytes % PT INR APTT Carbonic Acid HCO3/H2CO3 Ratio ABG pH ABG pCO2 ABG pO2 ABG HCO3 ABG Total CO2 ABG O2 Saturation ABG Base Excess Sodium 134.0 L Potassium 3.0 L* Chloride 102 Carbon Dioxide 28 Anion Gap 4 L BUN 12 Creatinine 0.88 Est GFR (Non-Af Amer) > 60 Glucose 78 Calcium 7.5 L Magnesium 1.5 L Total Bilirubin 0.5 Direct Bilirubin 0.2 Neonat Total Bilirubin Not Reportable Neonat Direct Bilirubin Not Reportable Neonat Indirect Bili Not Reportable AST 41 H ALT 50 Alkaline Phosphatase 94 Creatine Kinase CK-MB (CK-2) Troponin I NT-Pro-B Natriuret Pep 6520 H Total Protein 4.5 L Albumin 1.9 L Triglycerides 73 Cholesterol 90.30 LDL Cholesterol Direct 48 VLDL Cholesterol 15.0 HDL Cholesterol 38 L TSH 50.90 H Medications reviewed as per JUL. Continue patient IV Cardizem drip. Recommend starting the patient on Eliquis for stroke prophylaxis. Patient is CT scan of the chest shows minimal pericardial effusion. Small bilateral pleural effusions. 3 cm left renal mass. The patient's EKG on the shows atrial fibrillation with fast ventricular response. Left bundle branch block pattern of atypical type. Subsequent EKG on the shows sinus tachycardia versus atrial flutter versus MFAT with left bundle branch block pattern. IMPRESSION/RECOMMENDATION: 1. Paroxysmal atrial fibrillation. At present patient is in sinus tachycardia versus atrial flutter versus multifocal atrial tachycardia. We will give the patient a dose of digoxin 0.25 mg IV push and also change . We will continue the patient on IV Cardizem drip and decrease this and discontinued and changed to oral Cardizem when heart rate is better controlled. Would recommend starting the patient on Eliquis for stroke prophylaxis. 2. Acute exacerbation of COPD: Improving continue respiratory treatments and oxygen. 3. Small bilateral pleural effusions. Most likely secondary to atrial fibrillation with rapid ventricular response causing heart failure on a patient with a history of diastolic dysfunction. Continue diuretics. 4. Hypokalemia: And hypomagnesemia replace potassium, and magnesium. 5. Diabetes mellitus type 2 [id number] 6. Hypothyroidism: Note thyroid stimulating hormones a very high, suggesting hypothyroidism. Would recommend increasing the patient's thyroid replacement. Will increase the patient's thyroxine to 125 mcg p.o. daily, and watch heart rate response to the patient's increased dose of levothyroxine. [Note in May the patient was admitted with iatrogenic hyper thyroidism.] 7. History of GERD: At present stable. Continue proton pump inhibitors. 8. History of depression: Continue antidepressants. 9. History of lymphoma: At present seems to be in remission 10. History of acute on chronic respiratory failure. At present blood gases show that the patient's PO2 and PCO2 within normal limits. Continue oxygen. Medications reviewed. Medications adjusted. Management plan discussed with attending physician. Medical decision making I was of high complexity, in view of the need to adjust medication doses. 60 minutes spent on this patient more than 50% of time spent in direct patient care. Will follow with you.
[2018-07-23 05:48] LABS: ABSOLUTE BASOPHILS # (AUTO) 0.1 10^3/uL (0.0-0.2); ABSOLUTE LYMPHOCYTES (AUTO) 2.4 10^3/uL (0.5-4.7); ABSOLUTE MONOCYTES (AUTO) 0.5 10^3/uL (0.1-1.4); BASOPHILS % (AUTO) 0.9 % (0-2); EOSINOPHILS % (AUTO) 0.5 % (0-6); HEMOGLOBIN 12.4 g/dL (12.0-15.5); MEAN CORPUSCULAR HEMOGLOBIN 29.8 pg (27.0-33.4); MEAN CORPUSCULAR HGB CONC 33.5 g/dL (32.0-36.0); MEAN CORPUSCULAR VOLUME 89 fl (80-97); PLATELET COUNT 171 10^3/uL (150-450); RED BLOOD COUNT 4.17 10^6/uL (3.72-5.28); SEGMENTED NEUTROPHILS % (AUTO) 57.6 % (42-78); TOTAL CELLS COUNTED % (AUTO) 100 %
[2018-07-23 06:07] LABS: ALANINE AMINOTRANSFERASE 43 U/L (9-52); ALKALINE PHOSPHATASE 94 U/L (38-126); ANION GAP 5 (5-19); ASPARTATE AMINO TRANSFERASE 45 U/L (14-36); BILIRUBIN,DIRECT 0.3 mg/dL (0.0-0.4); BILIRUBIN,TOTAL 0.6 mg/dL (0.2-1.3); BLOOD UREA NITROGEN 12 mg/dL (7-20); CALCIUM 7.6 mg/dL (8.4-10.2); CARBON DIOXIDE 26 mmol/L (22-30); CHLORIDE 103 mmol/L (98-107); GLUCOSE 76 mg/dL (75-110); POTASSIUM 3.5 mmol/L (3.6-5.0); SODIUM 134.1 mmol/L (137-145); TOTAL PROTEIN 4.8 g/dL (6.3-8.2)
[2018-07-23] MEDS: BUDESONIDE NEB 0.5 MG/2 ML AMPUL NEB SCH ×2 (08:47→20:25)
[2018-07-23] MEDS: LEVALBUTEROL HCL NEB 1.25 MG/3 ML AMPUL NEB PRN ×2 (08:47→20:25)
[2018-07-23] MEDS: INSULIN REG, HUMAN 100 UNIT/ML 3 ML VIAL (PYX) SUBCUT SCH (08:55)
[2018-07-23] MEDS: DILTIAZEM HCL INJ 25 MG/5 ML VIAL IV PRN ×2 (09:08→17:14)
[2018-07-23] MEDS: LEVOTHYROXINE SODIUM 0.1 MG TABLET PO SCH (09:12)
[2018-07-23] MEDS: LACTOBACILLUS ACIDOPHILUS 250 MG TAB PO SCH (09:12)
[2018-07-23] MEDS: ESCITALOPRAM OXALATE 10 MG TABLET PO SCH (09:12)
[2018-07-23] MEDS: APIXABAN 2.5 MG TABLET PO SCH ×2 (09:13→23:22)
[2018-07-23] MEDS: FLUTICASONE/VILANTEROL 100-25 MCG/DOSE IH SCH (09:13)
[2018-07-23] MEDS: BUSPIRONE HCL 10 MG TABLET PO SCH ×2 (09:13→23:24)
[2018-07-23] MEDS: MULTIVITAMIN TABLET PO SCH (09:13)
[2018-07-23] MEDS: DILTIAZEM HCL 240 MG CAPSULE.CR PO SCH (09:13)
[2018-07-23] MEDS: FUROSEMIDE 20 MG TABLET PO SCH (09:13)
[2018-07-23] MEDS: DOCUSATE SODIUM 100 MG CAPSULE PO SCH (09:13)
[2018-07-23] MEDS: DULOXETINE HCL 30 MG CAPSULE.DR PO SCH (09:13)
[2018-07-23] MEDS: FAMOTIDINE 20 MG TABLET PO SCH (09:13)
[2018-07-23] MEDS: NICOTINE 21 MG/24 HR PATCH.TD24 TD SCH (09:14)
[2018-07-23] MEDS ORDERED: ESCITALOPRAM OXALATE 10 MG TABLET PO SCH (10:00)
[2018-07-23] MEDS ORDERED: DILTIAZEM HCL 240 MG CAPSULE.CR PO SCH (10:00)
[2018-07-23] MEDS ORDERED: LACTOBACILLUS ACIDOPHILUS 250 MG TAB PO SCH (10:00)
[2018-07-23] MEDS ORDERED: (PENDING PHARMACY ID) (L.Acidoph,Paracasei, B.Lactis [Probiotic] 1 CAP) PO SCH (10:00)
[2018-07-23] MEDS ORDERED: POTASSIUM CHLORIDE 10 MEQ CAPSULE.ER PO ONE (11:30)
[2018-07-23] MEDS ORDERED: DIGOXIN INJ 0.5 MG/2 ML AMPULE IV ONE (13:00)
--- NOTE | 2018-07-23 13:17 | PDOC PROGRESS REPORT ---
Subjective Progress Note for:: 07/23/18 Subjective:: 73 year old female with history of atrial fibrillation congestive heart failure, hypertension, COPD on 2 L oxygen CPAP at night depression came to the emergency room with history of shortness of breath for 1 day duration associated with loose stools twice a day for the last 3 days. No chest pains as per the patient. No fever noted. No nausea no vomiting's. Complains of lightheadedness. Patient states she is compliant with her medications. She is also complaining of palpitations and feeling like her heart is racing away. Workup was done in the ER BNP was 6900, EKG found to be in A. fib with RVR patient was started on Cardizem drip medical consult was called for admission. 07/22/2018-patient is doing much better today. According to the patient shortne ss of breath is much improved. Still in A. fib with rapid ventricular rate. Heart rate is around 120. Patient presently on 5 mg of Cardizem drip. To start on Cardizem CD 240 mg p.o. daily today. She is comfortably in the bed denies any complaints. She wants to go to a rehab facility for short-term physical therapy. 07/23/2018-patient is complaining of shortness of breath on examination she is on BiPAP she is tachypneic. The heart rate in the 120s. She is converted to sinus rhythm last night. No acute events in the last 24 hours. Patient is afebrile. Reason For Visit: ATRIAL FLUTTER Physical Exam Vital Signs: Temp Pulse Resp BP Pulse Ox 98.2 F 58 L 16 103/78 97 07/23/18 11:51 07/23/18 11:51 07/23/18 11:51 07/23/18 11:51 07/23/18 11:51 Intake & Output 07/22/18 07/23/18 07/24/18 06:59 06:59 06:59 Intake Total 298 639 Output Total 240 Balance 298 399 Weight 83 kg 82.9 kg General appearance: PRESENT: no acute distress Head exam: PRESENT: atraumatic Eye exam: PRESENT: PERRLA Mouth exam: PRESENT: moist, tongue midline Neck exam: ABSENT: carotid bruit, JVD, lymphadenopathy, thyromegaly Respiratory exam: PRESENT: decreased breath sounds Cardiovascular exam: PRESENT: systolic murmur, tachycardia GI/Abdominal exam: PRESENT: normal bowel sounds, soft. ABSENT: distended, guarding, mass, organolmegaly, rebound, tenderness Extremities exam: PRESENT: full ROM. ABSENT: calf tenderness, clubbing, pedal edema Neurological exam: PRESENT: alert, awake, oriented to person, oriented to place, oriented to time, oriented to situation, CN II-XII grossly intact. ABSENT: motor sensory deficit Psychiatric exam: PRESENT: appropriate affect, normal mood. ABSENT: homicidal ideation, suicidal ideation Results Laboratory Results: 07/23/18 05:09 07/23/18 05:09 07/23/18 07/23/18 05:09 05:09 WBC 7.0 RBC 4.17 Hgb 12.4 Hct 37.0 MCV 89 MCH 29.8 MCHC 33.5 RDW 14.0 Plt Count 171 Seg Neutrophils % 57.6 Lymphocytes % 34.0 Monocytes % 7.0 Eosinophils % 0.5 Basophils % 0.9 Absolute Neutrophils 4.0 Absolute Lymphocytes 2.4 Absolute Monocytes 0.5 Absolute Eosinophils 0.0 Absolute Basophils 0.1 Sodium 134.1 L Potassium 3.5 L Chloride 103 Carbon Dioxide 26 Anion Gap 5 BUN 12 Creatinine 0.81 Est GFR ( Amer) > 60 Est GFR (Non-Af Amer) > 60 Glucose 76 Calcium 7.6 L Magnesium 1.6 Total Bilirubin 0.6 AST 45 H ALT 43 Alkaline Phosphatase 94 Total Protein 4.8 L Albumin 2.0 L 07/21/18 07/21/18 07/21/18 12:20 13:25 13:25 Creatine Kinase 67 63 CK-MB (CK-2) 1.99 Troponin I 0.094 NT-Pro-B Natriuret Pep 6620 H 07/21/18 07/21/18 07/22/18 19:05 19:05 01:00 Creatine Kinase 56 55 CK-MB (CK-2) Troponin I 0.094 NT-Pro-B Natriuret Pep 07/22/18 07/22/18 07/22/18 01:00 07:07 07:07 Creatine Kinase 53 CK-MB (CK-2) Troponin I 0.095 0.091 NT-Pro-B Natriuret Pep 07/22/18 07:07 Creatine Kinase CK-MB (CK-2) Troponin I NT-Pro-B Natriuret Pep 6520 H Impressions: Chest X-Ray 07/21/18 11:44 IMPRESSION: Pleural effusions. Asymmetric edema or pneumonia. Chest CT 07/21/18 12:31 IMPRESSION: 1. Bilateral pleural effusions with mild compressive atelectasis in the lower lobes. 2. Cardiomegaly. Minimal pericardial effusion. 3. Possible 3 cm left renal mass. Assessment and Plan - Diagnosis (1) Atrial fibrillation with RVR Is this a current diagnosis for this admission?: Yes Plan: 07/21/2018-patient is going to be admitted for atrial fibrillation RVR he is going to be inpatient she is going to be in IMCU. To continue Cardizem drip to titrate to keep the heart rate less than 100. Restart Eliquis. GI prophylaxis was requested. Cardiac enzymes x3 will be requested. Cardiology consult is requested. 07/22/2018-patient admitted with atrial fibrillation with RVR most likely secondary to COPD exacerbation. She is on Cardizem drip until 1130 this morning started on a Cardizem CD 240 mg p.o. daily Cardizem drip was discontinued order was placed for Cardizem 10 mg IV every 6 as needed for the heart rate more than 110. Patient has chronic atrial fibrillation she is on Eliquis at home which was resumed during the hospital stay. 07/23/2018-patient was admitted with atrial flutter with RVR secondary to COPD exacerbation. Converted to sinus rhythm last night patient is still in sinus tachycardia on examination this morning. Latest heart rate is noted at 58 in the chart. Plan is to continue Cardizem 240 mg CD daily. Patient is also on Cardizem 10 mg IV every 6 as needed for heart rate more than 120. (2) COPD (chronic obstructive pulmonary disease) Qualifiers: Is this a current diagnosis for this admission?: No Plan: 07/21/2018 patient has history of COPD on 2 L oxygen she is denying she is smoking. Plan is to restart her home medications put her back on 2 L oxygen and start on CPAP at night. CT scan negative for pneumonia. But shows bilateral pleural effusions with cardiomegaly. 07/22/2018 patient has history of COPD she denies history of smoking on 2 L oxygen at home pulse ox here today is 96% on 4 L. She is also on CPAP at night. Chest x-ray shows bilateral pleural effusions with cardiomegaly. CT scan is negative for pneumonia. Plan is to continue Pulmicort nebulizations twice a day 07/23/2018-patient has history of COPD denies any history of smoking. She uses 2 L of oxygen at home. Pulse ox today is 96% on 4 L. Chest x-ray shows bilateral pleural effusions with cardiomegaly. CT scan is negative for pneumonia. Plan is to continue Pulmicort nebulizations twice a day. IV Solu-Medrol is not started because of the tachycardia. (3) Pleural effusion Is this a current diagnosis for this admission?: Yes Plan: 07/21/2018-CT scan shows bilateral pleural effusions most likely secondary to CHF. BNP is 6900. 07/22/2018 CT scan of the chest shows bilateral pleural effusions most likely secondary to congestive heart failure BNP came down to 6420 today. Lasix was resumed today. 07/23/2018-bilateral pleural effusions present in the chest x-ray secondary to CHF exacerbation. BNP is 6420. To continue Lasix. (4) Hypokalemia Is this a current diagnosis for this admission?: Yes Plan: 07/21/2018 patient's potassium is 3.0 started on potassium supplementation hypokalemia may be secondary to diuretic use. 07/22/2018-patient's potassium level is 3.0 to give her 40 mEq of K rider today and continue p.o. potassium. Hypokalemia most likely secondary to diuretic therapy. 07/23/2018-patient is admitted with serum potassium level 3.0 she is getting potassium supplementation potassium level today is 3.5 plan is to continue supplements of potassium daily basis. (5) CHF (congestive heart failure) Is this a current diagnosis for this admission?: No Plan: 07/21/2018 patient has history of congestive heart failure latest echocardiogram shows normal left ventricular systolic function most likely she has diastolic dysfunction which was chronic. BNP is 6900 and has bilateral pleural effusions on the CT scan. And is to resume the Lasix. 07/22/2018-patient has history of congestive heart failure, latest echocardiogram shows normal left ventricular systolic function but she has stage III/IV diastolic dysfunction which was chronic in nature. CT scan shows cardiomegaly with bilateral pleural effusions and elevated BNP. 07/23/2018-patient is given the history of congestive heart failure the echocardiogram shows normal left ventricular systolic function and stage III/IV diastolic dysfunction which was chronic in nature. CT scan shows bilateral pleural effusions and cardiomegaly and BNP was elevated. (6) Diabetes Qualifiers: Diabetes mellitus type: type 2 Diabetes mellitus mcc insulin use: without terminal clerk use Diabetes mellitus complication status: without complication Qualified Code(s): E11.9 - Type 2 diabetes mellitus without complications Is this a current diagnosis for this admission?: No Plan: 07/21/2018-patient has history of diabetes mellitus not on home medications plan to put her on sliding scale to check her hemoglobin A1c tomorrow. 07/22/2018-patient has history of type 2 diabetes mellitus latest blood sugar is 91 presently on insulin sliding scale before meals and at bedtime plan is to continue the present management. 07/23/2018-patient's hemoglobin A1c is 4.8. Plan is to discontinue insulin sliding scale and to put her on a regular diet. (7) Chronic respiratory failure with hypoxia, on home O2 therapy Is this a current diagnosis for this admission?: No Plan: 07/21/2018 patient is admitted with acute exacerbation of COPD leading to acute on chronic respiratory failure. Today 77% on 2 L. Plan is to put her on BiPAP as needed basis. 07/22/2018 patient has history of COPD on 2 L oxygen he admitted with exacerbation of COPD in the emergency room pulse ox is 77% on 2 L it was improved to 94% on 4 L today. plan is to continue the present management. 07/23/2018-patient has history of COPD on 2 L oxygen at home. In the emergency room pulse ox is 77% on 2 L and it was improved to 96% on 2 4 L today. Patient needing on and off BiPAP. Acute on chronic respiratory failure with hypoxia most likely secondary to COPD exacerbation. (8) Type 2 diabetes with ulcer of lower extremity or foot Is this a current diagnosis for this admission?: No Plan: 07/22/2018 patient has unstageable ulcers on toes on both feet. Peripheral pulses are present. No signs of infection seen. Plan to arrange for the dry dressing heel protection and continue to closely monitor the condition. 07/23/2018-patient has unstageable lesions on both feet on the toes. Peripheral pulses are present. No signs of infection. Continue the present management.
[2018-07-23] MEDS: MAGNESIUM OXIDE 400 MG TABLET PO SCH (17:14)
[2018-07-23 20:49] LABS: ARTERIAL BLOOD BASE EXCESS 1.4 mmol/L; ARTERIAL BLOOD H2CO3 0.97 mmol/L (1.05-1.35); ARTERIAL BLOOD HCO3 24.1 mmol/L (20-24); ARTERIAL BLOOD O2 SATURATION 97.4 % (94-98); ARTERIAL BLOOD PCO2 32.1 mmHg (35-45); ARTERIAL BLOOD PH 7.49 (7.35-7.45); ARTERIAL BLOOD PO2 87.8 mmHg (80-100); ARTERIAL BLOOD TOTAL CO2 25.1 mmol/L (21-25)
[2018-07-23 20:51] LABS: ARTERIAL BLOOD FIO2 2.5 L
--- NOTE | 2018-07-23 21:20 | Progress Note ---
Provider Note Provider Note: CARDIOLOGY PROGRESS NOTE by Dr. Kristen Davis on 07/23/2018. SUBJECTIVE: The patient states that shortness of breath is much improved. She is not wheezing anymore. She has chronic orthopnea. She has cough but is unable to produce any sputum. There is no PND. The patient is converted to sinus tachycardia versus multifocal atrial tachycardia there is no chest pain or discomfort. There is no ventricular or atrial arrhythmia seen on the monitor. There is no TIA CVA symptoms. There is no bleeding on Eliquis. The patient has no leg edema. There is no dizziness, near-syncope or syncope. She has no further diarrhea. SUBJECTIVE: The patient is mildly obese. In no acute distress. She is well-groomed 07/23/18 07/23/18 07/23/18 10:00 11:00 11:51 Temperature 98.2 F Temperature Oral Source Heart Rate ( 115 Monitors) Respiratory 16 Rate Blood Pressure 103/78 Blood Pressure 86 Mean BP Location Right Arm BP Position Supine O2 Sat by Pulse 97 Oximetry Oxygen Delivery Nasal Cannula Method ( includes room air) Oxygen Flow 2.00 Rate 07/23/18 12:00 Temperature Temperature Source Heart Rate ( 117 Monitors) Respiratory Rate Blood Pressure Blood Pressure Mean BP Location BP Position O2 Sat by Pulse Oximetry Oxygen Delivery Method ( includes room air) Oxygen Flow Rate HEAD: Atraumatic, normocephalic. EYES: Pupils equal round and reactive to light, extraocular movements intact, sclera anicteric, conjunctiva are normal. ENT: TMs normal, nares patent, oropharynx clear without exudates. Moist mucous membranes. NECK: Normal range of motion, supple without lymphadenopathy or JVD. Carotids are equal there is no bruits. There is no thyromegaly. There is no accessory muscles of respiration in use. Trachea central LUNGS: There is diminished air entry and prolonged expiration. There is occasional scattered rhonchi. There are no wet rales of CHF. On palpation there is no chest wall tenderness. HEART: S1-S2 is heard. S1 is of normal intensity. There is no S3 gallop. There is no S4 gallop. There is systolic murmur left sternal border and apex without radiation. There is no rub.. ABDOMEN: Soft, nontender, normoactive bowel sounds. There is no hepatosplenic megaly no guarding, no rebound. No masses appreciated. EXTREMITIES: Normal range of motion, no pitting or edema. No clubbing or cyanosis. Femorals are well felt. There is no femoral bruits. Leg pulses are well felt. There is no DVT or cellulitis. There is no calf tenderness NEUROLOGICAL: Cranial nerves II through XII grossly intact. Normal speech, normal gait. The patient is awake alert oriented x3 with no focal deficits. PSYCH: Normal mood, normal affect. The patient judgment and insight are intact SKIN: Warm, Dry, normal turgor, no rashes or lesions noted. There is no petechia or ecchymosis 07/23/18 07/23/18 07/23/18 05:09 05:09 20:38 WBC 7.0 RBC 4.17 Hgb 12.4 Hct 37.0 MCV 89 MCH 29.8 MCHC 33.5 RDW 14.0 Plt Count 171 Seg Neutrophils % 57.6 Lymphocytes % 34.0 Monocytes % 7.0 Eosinophils % 0.5 Basophils % 0.9 Absolute Neutrophils 4.0 Absolute Lymphocytes 2.4 Absolute Monocytes 0.5 Absolute Eosinophils 0.0 Absolute Basophils 0.1 Carbonic Acid 0.97 L HCO3/H2CO3 Ratio 24:1 ABG pH 7.49 H ABG pCO2 32.1 L ABG pO2 87.8 ABG HCO3 24.1 H ABG Total CO2 25.1 H ABG O2 Saturation 97.4 ABG Base Excess 1.4 FiO2 2.5 L Sodium 134.1 L Potassium 3.5 L Chloride 103 Carbon Dioxide 26 Anion Gap 5 BUN 12 Creatinine 0.81 Est GFR (Non-Af Amer) > 60 Glucose 76 Calcium 7.6 L Magnesium 1.6 Total Bilirubin 0.6 Direct Bilirubin 0.3 Neonat Total Bilirubin Not Reportable Neonat Direct Bilirubin Not Reportable Neonat Indirect Bili Not Reportable AST 45 H ALT 43 Alkaline Phosphatase 94 Total Protein 4.8 L Albumin 2.0 L IMPRESSION/RECOMMENDATION: 1. Paroxysmal atrial fibrillation. At present patient is in sinus tachycardia. We will give the patient a dose of digoxin 0.25 mg IV push and also change the patient's Cardizem CD to 180 mg p.o. every 12 hours. Continue the patient on Eliquis. 2. Acute exacerbation of COPD: Improving continue respiratory treatments and oxygen. 3. Small bilateral pleural effusions. Most likely secondary to atrial fibrillation with rapid ventricular response causing heart failure on a patient with a history of diastolic dysfunction. Continue diuretics. 4. Hypokalemia: Replace potassium. 5. Diabetes mellitus type 2 [id number] 6. Hypothyroidism: Note thyroid stimulating hormones a very high, suggesting hypothyroidism. Would recommend increasing the patient's thyroid replacement. Will increase the patient's thyroxine to 125 mcg p.o. daily, and watch heart rate response to the patient's increased dose of levothyroxine. [Note in May the patient was admitted with iatrogenic hyper thyroidism.] 7. History of GERD: At present stable. Continue proton pump inhibitors. 8. History of depression: Continue antidepressants. 9. History of lymphoma: At present seems to be in remission 10. History of acute on chronic respiratory failure. At present blood gases show that the patient's PO2 and PCO2 within normal limits. Continue oxygen. Medications reviewed. Medications adjusted. Management plan discussed with attending physician. Medical decision making I was of high complexity, in view of the need to adjust medication doses. 40 minutes spent on this patient more than 50% of time spent in direct patient care. Will follow with you.
[2018-07-23] MEDS: MONTELUKAST SODIUM 10 MG TABLET PO SCH (21:42)
[2018-07-23] MEDS: DILTIAZEM HCL 180 MG CAPSULE.CR PO SCH (21:42)
[2018-07-23] MEDS ORDERED: FUROSEMIDE INJ/PF 20 MG/2 ML SDV IV ONE (21:45)
[2018-07-23] MEDS ORDERED: LORAZEPAM 0.5 MG TABLET PO ONE (21:45)
--- NOTE | 2018-07-23 22:04 | EKG REPORT ---
SEVERITY:- ABNORMAL ECG - SINUS TACHYCARDIA, CONSIDER PAT WITH 2:1 CONDUCTION MULTIFORM VENTRICULAR PREMATURE COMPLEXES IVCD, CONSIDER ATYPICAL LBBB : Confirmed by: Junior Werner 23-Jul-2018 22:03:17
[2018-07-24 00:23] LABS: CREATINE KINASE MB 2.39 ng/mL (<4.55); TROPONIN I 0.101 ng/mL
[2018-07-24] MEDS ORDERED: AZITHROMYCIN INJ 500 MG VIAL IV PRN (00:57)
[2018-07-24] MEDS ORDERED: AZITHROMYCIN 500 MG in DEXTROSE 5%-WATER 250 ML IV ONE (01:00)
[2018-07-24] MEDS ORDERED: IPRATROPIUM/ALBUTEROL 0.5-2.5 MG/3 ML AMPUL NEB PRN (01:01)
--- NOTE | 2018-07-24 01:19 | RADIOLOGY REPORT (SQ) ---
EXAM DESCRIPTION: CT HEAD WITHOUT IV CONTRAST COMPLETED DATE/TME: 07/23/2018 23:42 CLINICAL HISTORY: 73 years, Female, confusion COMPARISON: 03/24/2015 CT TECHNIQUE: 200 Images stored on PACS. All CT scanners at this facility use dose modulation, iterative reconstruction, and/or weight based dosing when appropriate to reduce radiation dose to as low as reasonably achievable (ALARA). [facility]: Dose Right [facility]: CareDose [facility]: Dose Right [facility]: Teradose 4D [facility]: [employer] LIMITATIONS: None. FINDINGS: Globes are intact. Mucosal thickening with air-fluid level right maxillary sinus. No displaced or depressed skull fracture. No intra or extra-axial hemorrhage. CT is limited for evaluation of acute infarct. No CT evidence for large or territorial acute infarct. Mild atrophy. Minimal hypodensities in the periventricular and subcortical white matter consistent with sequelae of small vessel ischemic change. No mass or midline shift IMPRESSION: Mild atrophy and small vessel ischemic change TECHNICAL DOCUMENTATION: Quality ID # 436: Final reports with documentation of one or more dose reduction techniques (e.g., Automated exposure control, adjustment of the mA and/or kV according to patient size, use of iterative reconstruction technique) copyright 2010 [employer]- All Rights Reserved
[2018-07-24] MEDS: DOCUSATE SODIUM 100 MG CAPSULE PO SCH ×3 (01:29→22:26)
[2018-07-24] MEDS: ATORVASTATIN CALCIUM 80 MG TABLET PO SCH ×2 (01:30→22:24)
[2018-07-24] MEDS: MELATONIN 3 MG TABLET PO SCH ×2 (01:30→22:26)
[2018-07-24] MEDS: FAMOTIDINE 20 MG TABLET PO SCH ×3 (01:30→22:26)
[2018-07-24] MEDS ORDERED: METHYLPREDNISOLONE INJ 125 MG/2 ML SDV IV ONE ×2 (01:30→19:00)
--- NOTE | 2018-07-24 01:30 | RADIOLOGY REPORT (SQ) ---
EXAM DESCRIPTION: XR CHEST 1 VIEW COMPLETED DATE/TME: 07/24/2018 00:00 CLINICAL HISTORY: 73 years, Female, shortness of breath Comparison: July 21, 2018 FINDINGS: Bilateral pleural effusions and atelectasis, right greater than left. Moderate cardiomegaly. IMPRESSION: Bilateral pleural effusions, right greater than left.
[2018-07-24] MEDS ORDERED: AZITHROMYCIN INJ 500 MG VIAL IV ONE (01:44)
--- NOTE | 2018-07-24 02:44 | Progress Note ---
Provider Note Provider Note: Critical care note: Date of note: 07/24/2018 Subjective: The patient was seen shortly after midnight as she has been having shortness of breath earlier with mild tachypnea on pulmonary congestion for which she was given 20 mg of IV Lasix given her borderline systolic blood pressure of 96 and has started mild diuresis and was later placed on BiPAP. She was admitted with Jose villasenor with RVR for which she was placed on IV Cardizem drip that was tapered off. She has been having mildly altered mental status with confusion earlier. While on BiPAP she had mild shaking all over however she was talking. During my evaluation, she was alert and oriented x3 and cooperative. I ordered a stat EKG on her that revealed sinus tachycardia with a rate of 116 with PVC and left bundle branch block that is old. A stat head CT scan revealed mild atrophy with chronic ischemic disease with no acute abnormalities. A stat portable chest x-ray revealed bilateral pleural effusion, right more than left with moderate cardiomegaly. Objective: Physical examination: Generally: Acutely ill elderly female in mild respiratory distress on BiPAP Vital signs-as listed Head - atraumatic, normocephalic. Pupils - equal, round and reactive to light and accommodation. Extraocular movements are intact. No scleral icterus. Oropharynx - moist mucous membranes and tongue. No pharyngeal erythema or exudate. Neck - supple. No JVD. Carotid pulses 2+ bilaterally. No carotid bruits. No palpable thyromegaly or lymphadenopathy. Cardiovascular - regular rate and rhythm. Normal S1 and S2. No murmurs, gallops or rubs. Lungs -diffuse expiratory wheezes with tight extra airflow and harsh vesicular breathing with diminished bibasilar breath sounds Abdomen - soft and nontender. Positive bowel sounds. No palpable organomegaly or masses. Extremities - no pitting edema, clubbing or cyanosis. Neuro - grossly non-focal. She was alert and oriented x3 and cooperative. Muscle strength was normal 5/5 in both upper and lower extremities with normal sensory exam to light touch. Gait was not tested. Skin - no rashes. Breast, pelvic and rectal - deferred All notes and labs were reviewed. Portable chest x-ray and EKG as above Assessment/plan: Acute hypoxic respiratory failure likely secondary to COPD acute exacerbation as well as acute on chronic diastolic CHF. The patient will be continued on BiPAP overnight and O2 protocol to keep adequate O2 saturations. I ordered IV steroids therapy with Solu-Medrol as well as duo nebs on a scheduled and as needed basis in addition to IV Rocephin and Zithromax for the possibility of underlying acute bronchitis. I do not believe the patient had seizures as she was talking during her shaking. I still obtained a stat head CT scan given her altered mental status that is likely related to mild hypoxic encephalopathy and that revealed no acute intracranial abnormalities. We also obtain serial cardiac enzymes in addition to the EKG mentioned above. We will continue other current plan of care and closely monitor her overnight. Should she need more diuresis with her borderline blood pressure we will may need to transfer her to the ICU and start IV pressor therapy while diuresing. At this time she is slightly more comfortable on BiPAP. Critical care time spent: 35 minutes
[2018-07-24] MEDS: CEFTRIAXONE 1 GM/D5W RTU 1 GM/50 ML RTUPB IV SCH (05:47)
[2018-07-24] MEDS: LEVOTHYROXINE SODIUM 0.05 MG TABLET PO SCH (06:00)
[2018-07-24 07:03] LABS: ABSOLUTE LYMPHOCYTES (AUTO) 0.6 10^3/uL (0.5-4.7); ABSOLUTE MONOCYTES (AUTO) 0.1 10^3/uL (0.1-1.4); ABSOLUTE NEUT (AUTO) 5.3 10^3/uL (1.7-8.2); BASOPHILS % (AUTO) 0.2 % (0-2); HEMATOCRIT 35.9 % (36.0-47.0); HEMOGLOBIN 12.3 g/dL (12.0-15.5); LYMPHOCYTES % (AUTO) 9.9 % (13-45); MEAN CORPUSCULAR HGB CONC 34.3 g/dL (32.0-36.0); MEAN CORPUSCULAR VOLUME 88 fl (80-97); MONOCYTES % (AUTO) 2.1 % (3-13); PLATELET COUNT 165 10^3/uL (150-450); RED CELL DISTRIBUTION WIDTH 14.2 % (11.5-14.0); SEGMENTED NEUTROPHILS % (AUTO) 87.8 % (42-78); TOTAL CELLS COUNTED % (AUTO) 100 %
[2018-07-24 07:51] LABS: ALANINE AMINOTRANSFERASE 46 U/L (9-52); ALBUMIN 2.2 g/dL (3.5-5.0); ALKALINE PHOSPHATASE 99 U/L (38-126); ANION GAP 7 (5-19); ASPARTATE AMINO TRANSFERASE 49 U/L (14-36); BILIRUBIN,DIRECT 0.4 mg/dL (0.0-0.4); BILIRUBIN,TOTAL 0.6 mg/dL (0.2-1.3); BLOOD UREA NITROGEN 11 mg/dL (7-20); CALCIUM 7.9 mg/dL (8.4-10.2); CARBON DIOXIDE 25 mmol/L (22-30); CHLORIDE 102 mmol/L (98-107); CREATINE KINASE 93 U/L (30-135); GLUCOSE 117 mg/dL (75-110); POTASSIUM 3.8 mmol/L (3.6-5.0); SODIUM 134.2 mmol/L (137-145); TOTAL PROTEIN 4.8 g/dL (6.3-8.2)
[2018-07-24 07:59] LABS: CREATINE KINASE MB 2.89 ng/mL (<4.55); TROPONIN I 0.115 ng/mL
[2018-07-24] MEDS ORDERED: IPRATROPIUM/ALBUTEROL 0.5-2.5 MG/3 ML AMPUL NEB SCH (08:00)
[2018-07-24] MEDS: BUDESONIDE NEB 0.5 MG/2 ML AMPUL NEB SCH ×2 (08:59→20:17)
[2018-07-24] MEDS: INSULIN REG, HUMAN 100 UNIT/ML 3 ML VIAL (PYX) SUBCUT SCH (09:17)
[2018-07-24] MEDS: ESCITALOPRAM OXALATE 10 MG TABLET PO SCH (09:44)
[2018-07-24] MEDS: GUAIFENESIN 600 MG TABLET.SA PO SCH ×2 (09:44→17:25)
[2018-07-24] MEDS: DULOXETINE HCL 30 MG CAPSULE.DR PO SCH (09:45)
[2018-07-24] MEDS: POTASSIUM CHLORIDE 20 MEQ/15 ML UDCUP PO SCH (09:45)
[2018-07-24] MEDS: LACTOBACILLUS ACIDOPHILUS 250 MG TAB PO SCH (09:45)
[2018-07-24] MEDS: MAGNESIUM OXIDE 400 MG TABLET PO SCH ×2 (09:45→17:25)
[2018-07-24] MEDS: APIXABAN 2.5 MG TABLET PO SCH ×2 (09:45→22:24)
[2018-07-24] MEDS: DILTIAZEM HCL 180 MG CAPSULE.CR PO SCH ×2 (09:45→22:24)
[2018-07-24] MEDS: MULTIVITAMIN TABLET PO SCH (09:45)
[2018-07-24] MEDS: FUROSEMIDE 20 MG TABLET PO SCH (09:45)
[2018-07-24] MEDS: FLUTICASONE/VILANTEROL 100-25 MCG/DOSE IH SCH (09:46)
[2018-07-24] MEDS: NICOTINE 21 MG/24 HR PATCH.TD24 TD SCH (09:47)
[2018-07-24] MEDS: BUSPIRONE HCL 10 MG TABLET PO SCH ×2 (09:47→22:26)
[2018-07-24] MEDS ORDERED: METHYLPREDNISOLONE INJ 40 MG/1 ML SDV IV SCH (10:00)
--- NOTE | 2018-07-24 10:38 | EKG REPORT ---
SEVERITY:- ABNORMAL ECG - SINUS TACHYCARDIA VS PAT WITH 2:1 CONDUCTION, REC REPAET EKG OR OBTAIN RHYTM STRIP VENTRICULAR PREMATURE COMPLEX LEFT BUNDLE BRANCH BLOCK : Confirmed by: Junior Werner 24-Jul-2018 10:38:15
[2018-07-24] MEDS ORDERED: METHYLPREDNISOLONE INJ 125 MG/2 ML SDV IV SCH ×2 (12:15→22:00)
[2018-07-24 12:23] LABS: CREATINE KINASE MB 2.72 ng/mL (<4.55); TROPONIN I 0.079 ng/mL
--- NOTE | 2018-07-24 12:28 | PDOC PROGRESS REPORT ---
Subjective Progress Note for:: 07/24/18 Subjective:: 73 year old female with history of atrial fibrillation congestive heart failure, hypertension, COPD on 2 L oxygen CPAP at night depression came to the emergency room with history of shortness of breath for 1 day duration associated with loose stools twice a day for the last 3 days. No chest pains as per the patient. No fever noted. No nausea no vomiting's. Complains of lightheadedness. Patient states she is compliant with her medications. She is also complaining of palpitations and feeling like her heart is racing away. Workup was done in the ER BNP was 6900, EKG found to be in A. fib with RVR patient was started on Cardizem drip medical consult was called for admission. 07/22/2018-patient is doing much better today. According to the patient shortne ss of breath is much improved. Still in A. fib with rapid ventricular rate. Heart rate is around 120. Patient presently on 5 mg of Cardizem drip. To start on Cardizem CD 240 mg p.o. daily today. She is comfortably in the bed denies any complaints. She wants to go to a rehab facility for short-term physical therapy. 07/23/2018-patient is complaining of shortness of breath on examination she is on BiPAP she is tachypneic. The heart rate in the 120s. She is converted to sinus rhythm last night. No acute events in the last 24 hours. Patient is afebrile. 06/26/2018-last night patient went into respiratory distress she was placed on BiPAP she was given IV Lasix chest x-ray was done shows pleural effusions ABG was within normal range CT head was negative for any strokes this morning pat ient is still shortness of breath better than last night alert and awake oriented able to give her date about able to tell me where she is at family members at bedside they happy with the care so far. Patient is requesting to go to a rehab facility. Reason For Visit: [employer]TER Physical Exam Vital Signs: Temp Pulse Resp BP Pulse Ox 97.7 F 112 H 20 108/64 97 07/24/18 08:00 07/24/18 08:59 07/24/18 08:59 07/24/18 08:00 07/24/18 08:59 Intake & Output 07/23/18 07/24/18 07/25/18 06:59 06:59 06:59 Intake Total 639 1085 Output Total 240 600 Balance 399 485 Weight 82.9 kg 82.7 kg General appearance: PRESENT: mild distress Head exam: PRESENT: atraumatic Eye exam: PRESENT: PERRLA Teeth exam: PRESENT: poor dentation Neck exam: ABSENT: carotid bruit, JVD, lymphadenopathy, thyromegaly Respiratory exam: PRESENT: decreased breath sounds, rhonchi Cardiovascular exam: PRESENT: irregular rhythm, systolic murmur, tachycardia GI/Abdominal exam: PRESENT: normal bowel sounds, soft. ABSENT: distended, guarding, mass, organolmegaly, rebound, tenderness Extremities exam: PRESENT: full ROM. ABSENT: calf tenderness, clubbing, pedal edema Neurological exam: PRESENT: alert, awake, oriented to person, oriented to place, oriented to time, oriented to situation, CN II-XII grossly intact. ABSENT: motor sensory deficit Psychiatric exam: PRESENT: appropriate affect, normal mood. ABSENT: homicidal ideation, suicidal ideation Results Laboratory Results: 07/24/18 06:31 07/24/18 06:31 07/23/18 07/24/18 07/24/18 20:38 06:31 06:31 WBC 6.0 RBC 4.10 Hgb 12.3 Hct 35.9 L MCV 88 MCH 30.0 MCHC 34.3 RDW 14.2 H Plt Count 165 Seg Neutrophils % 87.8 H Lymphocytes % 9.9 L Monocytes % 2.1 L Eosinophils % 0.0 Basophils % 0.2 Absolute Neutrophils 5.3 Absolute Lymphocytes 0.6 Absolute Monocytes 0.1 Absolute Eosinophils 0.0 Absolute Basophils 0.0 Carbonic Acid 0.97 L HCO3/H2CO3 Ratio 24:1 ABG pH 7.49 H ABG pCO2 32.1 L ABG pO2 87.8 ABG HCO3 24.1 H ABG O2 Saturation 97.4 ABG Base Excess 1.4 FiO2 2.5 L Sodium 134.2 L Potassium 3.8 Chloride 102 Carbon Dioxide 25 Anion Gap 7 BUN 11 Creatinine 0.80 Est GFR ( Amer) > 60 Est GFR (Non-Af Amer) > 60 Glucose 117 H Calcium 7.9 L Magnesium 1.5 L Total Bilirubin 0.6 AST 49 H ALT 46 Alkaline Phosphatase 99 Total Protein 4.8 L Albumin 2.2 L 03/21/19 03/21/19 03/21/19 12:20 13:25 13:25 Creatine Kinase 67 63 CK-MB (CK-2) 1.99 Troponin I 0.094 NT-Pro-B Natriuret Pep 6620 H 07/21/18 07/21/18 07/22/18 19:05 19:05 01:00 Creatine Kinase 56 55 CK-MB (CK-2) Troponin I 0.094 NT-Pro-B Natriuret Pep 07/22/18 07/22/18 07/22/18 01:00 07:07 07:07 Creatine Kinase 53 CK-MB (CK-2) Troponin I 0.095 0.091 NT-Pro-B Natriuret Pep 07/22/18 07/23/18 07/23/18 07:07 23:52 23:52 Creatine Kinase 56 CK-MB (CK-2) 2.39 Troponin I 0.101 NT-Pro-B Natriuret Pep 6520 H 07/23/18 07/24/18 07/24/18 23:52 06:31 06:31 Creatine Kinase 93 CK-MB (CK-2) 2.89 Troponin I 0.115 NT-Pro-B Natriuret Pep 7130 H 07/24/18 11:47 Creatine Kinase 90 CK-MB (CK-2) Troponin I NT-Pro-B Natriuret Pep Impressions: Chest CT 07/21/18 12:31 IMPRESSION: 1. Bilateral pleural effusions with mild compressive atelectasis in the lower lobes. 2. Cardiomegaly. Minimal pericardial effusion. 3. Possible 3 cm left renal mass. Head CT 07/23/18 23:42 IMPRESSION: Mild atrophy and small vessel ischemic change TECHNICAL DOCUMENTATION: Quality ID # 436: Final reports with documentation of one or more dose reduction techniques (e.g., Automated exposure control, adjustment of the mA and/or kV according to patient size, use of iterative reconstruction technique) copyright 2011 [employer]- All Rights Reserved Chest X-Ray 07/24/18 00:00 IMPRESSION: Bilateral pleural effusions, right greater than left. Assessment and Plan - Diagnosis (1) Atrial fibrillation with RVR Is this a current diagnosis for this admission?: Yes Plan: 07/21/2018-patient is going to be admitted for atrial fibrillation RVR he is going to be inpatient she is going to be in IMCU. To continue Cardizem drip to titrate to keep the heart rate less than 100. Restart Eliquis. GI prophylaxis was requested. Cardiac enzymes x3 will be requested. Cardiology consult is requested. 07/22/2018-patient admitted with atrial fibrillation with RVR most likely secondary to COPD exacerbation. She is on Cardizem drip until 1130 this morning started on a Cardizem CD 240 mg p.o. daily Cardizem drip was discontinued order was placed for Cardizem 10 mg IV every 6 as needed for the heart rate more than 110. Patient has chronic atrial fibrillation she is on Eliquis at home which was resumed during the hospital stay. 07/23/2018-patient was admitted with atrial flutter with RVR secondary to COPD exacerbation. Converted to sinus rhythm last night patient is still in sinus tachycardia on examination this morning. Latest heart rate is noted at 58 in the chart. Plan is to continue Cardizem 240 mg CD daily. Patient is also on Cardizem 10 mg IV every 6 as needed for heart rate more than 120. 07/24/2018-patient was admitted with atrial flutter RVR secondary to COPD exacerbation. Presently she is on p.o. Cardizem 180 mg twice a day. Still tachycardic. Heart rate is in the 100s. (2) COPD (chronic obstructive pulmonary disease) Qualifiers: Is this a current diagnosis for this admission?: No Plan: 07/21/2018 patient has history of COPD on 2 L oxygen she is denying she is smoking. Plan is to restart her home medications put her back on 2 L oxygen and start on CPAP at night. CT scan negative for pneumonia. But shows bilateral pleural effusions with cardiomegaly. 07/22/2018 patient has history of COPD she denies history of smoking on 2 L oxygen at home pulse ox here today is 96% on 4 L. She is also on CPAP at night. Chest x-ray shows bilateral pleural effusions with cardiomegaly. CT scan is negative for pneumonia. Plan is to continue Pulmicort nebulizations twice a day 07/23/2018-patient has history of COPD denies any history of smoking. She uses 2 L of oxygen at home. Pulse ox today is 96% on 4 L. Chest x-ray shows bilateral pleural effusions with cardiomegaly. CT scan is negative for pneumonia. Plan is to continue Pulmicort nebulizations twice a day. IV Solu-Medrol is not started because of the tachycardia. 07/24/2018-patient has history of COPD on 2 L of oxygen at home. Pulse ox is 97% on 2 L. Latest chest x-ray done last night shows bilateral pleural effusions. CT scan was negative for pneumonia. And is presently on IV Zithromax, ceftriaxone, DuoNeb nebulizations, Xopenex nebulizations. She is also on Pulmicort. Plan is to continue the present management and provide BiPAP on as- needed basis. ABG done this morning on 2.5 L pH is 7.49 PCO2 32 PO2 87.4 bicarb is 24. (3) Pleural effusion Is this a current diagnosis for this admission?: Yes Plan: 07/21/2018-CT scan shows bilateral pleural effusions most likely secondary to CHF. BNP is 6900. 07/22/2018 CT scan of the chest shows bilateral pleural effusions most likely secondary to congestive heart failure BNP came down to 6420 today. Lasix was resumed today. 07/23/2018-bilateral pleural effusions present in the chest x-ray secondary to CHF exacerbation. BNP is 6420. To continue Lasix. 07/24/2018 chest x-ray shows bilateral pleural effusions BNP today is 7130 charted on Lasix 20 mg IV every 12 hours because the blood pressures on the softer side. plan to recheck the BNP tomorrow. (4) Hypokalemia Is this a current diagnosis for this admission?: Yes Plan: 07/21/2018 patient's potassium is 3.0 started on potassium supplementation hypokalemia may be secondary to diuretic use. 07/22/2018-patient's potassium level is 3.0 to give her 40 mEq of K rider today and continue p.o. potassium. Hypokalemia most likely secondary to diuretic therapy. 07/23/2018-patient is admitted with serum potassium level 3.0 she is getting p otassium supplementation potassium level today is 3.5 plan is to continue supplements of potassium daily basis. 07/24/2018-serum potassium level today is 3.8 she is on potassium supplementation 40 mg daily plan is to continue the present management. (5) CHF (congestive heart failure) Is this a current diagnosis for this admission?: No Plan: 07/21/2018 patient has history of congestive heart failure latest echocardiogram shows normal left ventricular systolic function most likely she has diastolic dysfunction which was chronic. BNP is 6900 and has bilateral pleural effusions on the CT scan. And is to resume the Lasix. 07/22/2018-patient has history of congestive heart failure, latest echocardiogram shows normal left ventricular systolic function but she has stage III/IV diastolic dysfunction which was chronic in nature. CT scan shows cardiomegaly with bilateral pleural effusions and elevated BNP. 07/23/2018-patient is given the history of congestive heart failure the echocardiogram shows normal left ventricular systolic function and stage III/IV diastolic dysfunction which was chronic in nature. CT scan shows bilateral pleural effusions and cardiomegaly and BNP was elevated. 2018-patient has history of congestive heart failure, echocardiogram shows normal left ventricular systolic function and stage IV diastolic dysfunction. The diastolic dysfunction is chronic in nature. CT scan shows bilateral pleural effusions, cardiomegaly BNP was elevated. (6) Diabetes Qualifiers: Diabetes mellitus type: type 2 Diabetes mellitus retirement insulin use: without retirement use Diabetes mellitus complication status: without complication Qualified Code(s): E11.9 - Type 2 diabetes mellitus without complications Is this a current diagnosis for this admission?: No Plan: 07/21/2018-patient has history of diabetes mellitus not on home medications plan to put her on sliding scale to check her hemoglobin A1c tomorrow. 07/22/2018-patient has history of type 2 diabetes mellitus latest blood sugar is 91 presently on insulin sliding scale before meals and at bedtime plan is to continue the present management. 07/23/2018-patient's hemoglobin A1c is 4.8. Plan is to discontinue insulin sliding scale and to put her on a regular diet. 07/24/2018-hemoglobin A1c is 4.8 she was placed in diet and insulin sliding scale is discontinued yesterday. (7) Chronic respiratory failure with hypoxia, on home O2 therapy Is this a current diagnosis for this admission?: No Plan: 07/21/2018 patient is admitted with acute exacerbation of COPD leading to acute on chronic respiratory failure. Today 77% on 2 L. Plan is to put her on BiPAP as needed basis. 07/22/2018 patient has history of COPD on 2 L oxygen he admitted with exacerbation of COPD in the emergency room pulse ox is 77% on 2 L it was improved to 94% on 4 L today. plan is to continue the present management. 07/23/2018-patient has history of COPD on 2 L oxygen at home. In the emergency room pulse ox is 77% on 2 L and it was improved to 96% on 2 4 L today. Patient needing on and off BiPAP. Acute on chronic respiratory failure with hypoxia most likely secondary to COPD exacerbation. 07/24/2018-patient has history of COPD on 2 L oxygen at home. Initially at the time of admission pulse ox are low requiring BiPAP. Last night patient went into respiratory distress with tachypnea and she was placed back on BiPAP. (8) Type 2 diabetes with ulcer of lower extremity or foot Is this a current diagnosis for this admission?: No (9) Obesity (BMI 30-39.9) Is this a current diagnosis for this admission?: Yes Plan: 07/24/2018-patient's BMI is more than 35 diet exercise weight loss lifestyle modifications are discussed with patient. Dietary consult was requested. - Time Time Spent with patient: 25-34 minutes Medications reviewed and adjusted accordingly: Yes Anticipated discharge: SNF
[2018-07-24] MEDS: MAGNESIUM SULFATE/D5W 1 GM/100 ML RTUPB IV SCH ×2 (13:46→15:19)
--- NOTE | 2018-07-24 18:35 | Progress Note ---
Provider Note Provider Note: Cardiology PROGRESS NOTE BY Dr. Kristen Davis on 07/24/2018. SUBJECTIVE: Note last night the patient was confused and also became short of breath with wheezing. She was thought to have CHF and given Lasix. At present the patient states that she feels much better. She has no wheezing at present. But this rhonchi. She does have chronic orthopnea. Patient denies any chest pain or discomfort. There is no PND or leg edema. There is no arrhythmias on the monitor, the patient is a is in sinus tachycardia. There is no TIA CVA symptoms. There is no bleeding on Eliquis. PHYSICAL EXAMINATION: The patient is mildly obese. At present in no acute distress. She is well-groomed Selected Entries 07/24/18 08:00 Temperature 97.7 F Temperature Oral Source Pulse Rate 111 H Respiratory 16 Rate Blood Pressure 108/64 [Left Lower Arm ] Blood Pressure 78 Mean [Left Lower Arm] Blood Pressure Supine Position [Left Lower Arm] O2 Sat by Pulse 100 Oximetry Oxygen Delivery Nasal Cannula Method ( includes room air) Oxygen Flow 2 Rate HEAD: Atraumatic, normocephalic. EYES: Pupils equal round and reactive to light, extraocular movements intact, sclera anicteric, conjunctiva are normal. ENT: TMs normal, nares patent, oropharynx clear without exudates. Moist mucous membranes. NECK: Normal range of motion, supple without lymphadenopathy or JVD. Carotids are equal there is no bruits. There is no thyromegaly. There is no accessory muscles of respiration in use. Trachea central LUNGS: There is diminished air entry and prolonged expiration. There is occasional scattered rhonchi. There are no wet rales of CHF. On palpation there is no chest wall tenderness. HEART: S1-S2 is heard. S1 is of normal intensity. There is no S3 gallop. There is no S4 gallop. There is systolic murmur left sternal border and apex without radiation. There is no rub.. ABDOMEN: Soft, nontender, normoactive bowel sounds. There is no hepatosplenic megaly no guarding, no rebound. No masses appreciated. EXTREMITIES: Normal range of motion, no pitting or edema. No clubbing or cyanosis. Femorals are well felt. There is no femoral bruits. Leg pulses are well felt. There is no DVT or cellulitis. There is no calf tenderness NEUROLOGICAL: Cranial nerves II through XII grossly intact. Normal speech, normal gait. The patient is awake alert oriented x3 with no focal deficits. PSYCH: Normal mood, normal affect. The patient judgment and insight are intact SKIN: Warm, Dry, normal turgor, no rashes or lesions noted. There is no petechia or ecchymosis Labs- All tests 24 hr 07/23/18 07/23/18 07/23/18 20:38 23:52 23:52 WBC RBC Hgb Hct MCV MCH MCHC RDW Plt Count Seg Neutrophils % Lymphocytes % Monocytes % Eosinophils % Basophils % Absolute Neutrophils Absolute Lymphocytes Absolute Monocytes Absolute Eosinophils Absolute Basophils D-Dimer Carbonic Acid 0.97 L HCO3/H2CO3 Ratio 24:1 ABG pH 7.49 H ABG pCO2 32.1 L ABG pO2 87.8 ABG HCO3 24.1 H ABG Total CO2 25.1 H ABG O2 Saturation 97.4 ABG Base Excess 1.4 FiO2 2.5 L Sodium Potassium Chloride Carbon Dioxide Anion Gap BUN Creatinine Est GFR ( Amer) Est GFR (Non-Af Amer) Glucose Calcium Magnesium Total Bilirubin Direct Bilirubin Neonat Total Bilirubin Neonat Direct Bilirubin Neonat Indirect Bili AST ALT Alkaline Phosphatase Creatine Kinase 56 CK-MB (CK-2) 2.39 Troponin I 0.101 NT-Pro-B Natriuret Pep Total Protein Albumin 07/23/18 07/23/18 07/24/18 23:52 23:52 06:31 WBC RBC Hgb Hct MCV MCH MCHC RDW Plt Count Seg Neutrophils % Lymphocytes % Monocytes % Eosinophils % Basophils % Absolute Neutrophils Absolute Lymphocytes Absolute Monocytes Absolute Eosinophils Absolute Basophils D-Dimer 1.67 H Carbonic Acid HCO3/H2CO3 Ratio ABG pH ABG pCO2 ABG pO2 ABG HCO3 ABG Total CO2 ABG O2 Saturation ABG Base Excess FiO2 Sodium 134.2 L Potassium 3.8 Chloride 102 Carbon Dioxide 25 Anion Gap 7 BUN 11 Creatinine 0.80 Est GFR ( Amer) > 60 Est GFR (Non-Af Amer) > 60 Glucose 117 H Calcium 7.9 L Magnesium 1.5 L Total Bilirubin 0.6 Direct Bilirubin 0.4 Neonat Total Bilirubin Not Reportable Neonat Direct Bilirubin Not Reportable Neonat Indirect Bili Not Reportable AST 49 H ALT 46 Alkaline Phosphatase 99 Creatine Kinase 93 CK-MB (CK-2) Troponin I NT-Pro-B Natriuret Pep 7130 H Total Protein 4.8 L Albumin 2.2 L 07/24/18 07/24/18 07/24/18 06:31 06:31 11:47 WBC 6.0 RBC 4.10 Hgb 12.3 Hct 35.9 L MCV 88 MCH 30.0 MCHC 34.3 RDW 14.2 H Plt Count 165 Seg Neutrophils % 87.8 H Lymphocytes % 9.9 L Monocytes % 2.1 L Eosinophils % 0.0 Basophils % 0.2 Absolute Neutrophils 5.3 Absolute Lymphocytes 0.6 Absolute Monocytes 0.1 Absolute Eosinophils 0.0 Absolute Basophils 0.0 D-Dimer Carbonic Acid HCO3/H2CO3 Ratio ABG pH ABG pCO2 ABG pO2 ABG HCO3 ABG Total CO2 ABG O2 Saturation ABG Base Excess FiO2 Sodium Potassium Chloride Carbon Dioxide Anion Gap BUN Creatinine Est GFR ( Amer) Est GFR (Non-Af Amer) Glucose Calcium Magnesium Total Bilirubin Direct Bilirubin Neonat Total Bilirubin Neonat Direct Bilirubin Neonat Indirect Bili AST ALT Alkaline Phosphatase Creatine Kinase 90 CK-MB (CK-2) 2.89 Troponin I 0.115 NT-Pro-B Natriuret Pep Total Protein Albumin 07/24/18 11:47 WBC RBC Hgb Hct MCV MCH MCHC RDW Plt Count Seg Neutrophils % Lymphocytes % Monocytes % Eosinophils % Basophils % Absolute Neutrophils Absolute Lymphocytes Absolute Monocytes Absolute Eosinophils Absolute Basophils D-Dimer Carbonic Acid HCO3/H2CO3 Ratio ABG pH ABG pCO2 ABG pO2 ABG HCO3 ABG Total CO2 ABG O2 Saturation ABG Base Excess FiO2 Sodium Potassium Chloride Carbon Dioxide Anion Gap BUN Creatinine Est GFR ( Amer) Est GFR (Non-Af Amer) Glucose Calcium Magnesium Total Bilirubin Direct Bilirubin Neonat Total Bilirubin Neonat Direct Bilirubin Neonat Indirect Bili AST ALT Alkaline Phosphatase Creatine Kinase CK-MB (CK-2) 2.72 Troponin I 0.079 NT-Pro-B Natriuret Pep Total Protein Albumin Chest X-Ray 07/21/18 11:44 IMPRESSION: Pleural effusions. Asymmetric edema or pneumonia. Chest CT 07/21/18 12:31 IMPRESSION: 1. Bilateral pleural effusions with mild compressive atelectasis in the lower lobes. 2. Cardiomegaly. Minimal pericardial effusion. 3. Possible 3 cm left renal mass. Head CT 07/23/18 23:42 IMPRESSION: Mild atrophy and small vessel ischemic change TECHNICAL DOCUMENTATION: Quality ID # 436: Final reports with documentation of one or more dose reduction techniques (e.g., Automated exposure control, adjustment of the mA and/or kV according to patient size, use of iterative reconstruction technique) copyright 2011 [employer]- All Rights Reserved Chest X-Ray 07/24/18 00:00 IMPRESSION: Bilateral pleural effusions, right greater than left. IMPRESSION/RECOMMENDATION: 1. Paroxysmal atrial fibrillation. At present patient is in atrial flutter. We will continue the patient on Cardizem CD 180 mg p.o. every 12 hours, and increase as tolerated. We will also continue the patient on Eliquis. 2. Acute exacerbation of COPD: Improving continue respiratory treatments and oxygen. 3. Small bilateral pleural effusions. Most likely secondary to atrial fibrillation with rapid ventricular response causing heart failure on a patient with a history of diastolic dysfunction. Continue diuretics. 4. Hypokalemia: Replace potassium. 5. Diabetes mellitus type 2 [id number] 6. Hypothyroidism: Note thyroid stimulating hormones a very high, suggesting hypothyroidism. Would recommend increasing the patient's thyroid replacement. Will increase the patient's thyroxine to 125 mcg p.o. daily, and watch heart rate response to the patient's increased dose of levothyroxine. [Note in May the patient was admitted with iatrogenic hyper thyroidism.] 7. History of GERD: At present stable. Continue proton pump inhibitors. 8. History of depression: Continue antidepressants. 9. History of lymphoma: At present seems to be in remission 10. History of acute on chronic respiratory failure. At present blood gases show that the patient's PO2 and PCO2 within normal limits. Continue oxygen. Medications reviewed. Medications adjusted. Management plan discussed with attending physician. Medical decision making I was of high complexity, in view of the need to adjust medication doses. 40 minutes spent on this patient more than 50% of time spent in direct patient care. Will follow with you
[2018-07-24 19:01] LABS: CREATINE KINASE MB 2.64 ng/mL (<4.55); TROPONIN I 0.08 ng/mL
[2018-07-24] MEDS: LEVALBUTEROL HCL NEB 1.25 MG/3 ML AMPUL NEB PRN (20:17)
[2018-07-24] MEDS ORDERED: FUROSEMIDE INJ/PF 20 MG/2 ML SDV IV ONE (21:30)
[2018-07-24] MEDS ORDERED: FUROSEMIDE INJ/PF 40 MG/4 ML SDV IV SCH (22:00)
[2018-07-24] MEDS: MONTELUKAST SODIUM 10 MG TABLET PO SCH (22:24)
[2018-07-24] MEDS: AZITHROMYCIN 500 MG in DEXTROSE 5%-WATER 250 ML IV SCH (22:42)
[2018-07-25 01:08] LABS: CREATINE KINASE MB 2.59 ng/mL (<4.55); TROPONIN I 0.071 ng/mL
[2018-07-25] MEDS: ACETAMINOPHEN 325 MG TABLET PO PRN (04:22)
[2018-07-25 06:05] LABS: ABSOLUTE MONOCYTES (AUTO) 0.3 10^3/uL (0.1-1.4); ABSOLUTE NEUT (AUTO) 10.6 10^3/uL (1.7-8.2); BASOPHILS % (AUTO) 0.1 % (0-2); HEMATOCRIT 32.7 % (36.0-47.0); LYMPHOCYTES % (AUTO) 8.3 % (13-45); MEAN CORPUSCULAR HEMOGLOBIN 29.5 pg (27.0-33.4); MEAN CORPUSCULAR HGB CONC 33.7 g/dL (32.0-36.0); MEAN CORPUSCULAR VOLUME 87 fl (80-97); MONOCYTES % (AUTO) 2.7 % (3-13); PLATELET COUNT 162 10^3/uL (150-450); RED BLOOD COUNT 3.74 10^6/uL (3.72-5.28); SEGMENTED NEUTROPHILS % (AUTO) 88.9 % (42-78); TOTAL CELLS COUNTED % (AUTO) 100 %; WHITE BLOOD COUNT 11.9 10^3/uL (4.0-10.5)
[2018-07-25] MEDS: CEFTRIAXONE 1 GM/D5W RTU 1 GM/50 ML RTUPB IV SCH (06:18)
[2018-07-25 07:04] LABS: ALANINE AMINOTRANSFERASE 46 U/L (9-52); ALKALINE PHOSPHATASE 93 U/L (38-126); ANION GAP 8 (5-19); ASPARTATE AMINO TRANSFERASE 44 U/L (14-36); BILIRUBIN,DIRECT 0.3 mg/dL (0.0-0.4); BILIRUBIN,TOTAL 0.5 mg/dL (0.2-1.3); BLOOD UREA NITROGEN 13 mg/dL (7-20); CARBON DIOXIDE 25 mmol/L (22-30); CHLORIDE 102 mmol/L (98-107); GLUCOSE 101 mg/dL (75-110); POTASSIUM 3.9 mmol/L (3.6-5.0); SODIUM 134.6 mmol/L (137-145); TOTAL PROTEIN 4.7 g/dL (6.3-8.2)
[2018-07-25] MEDS ORDERED: ONDANSETRON HCL INJ/PF 4 MG/2 ML SDV IV PRN (08:00)
[2018-07-25] MEDS: BUDESONIDE NEB 0.5 MG/2 ML AMPUL NEB SCH ×2 (08:24→20:23)
[2018-07-25] MEDS ORDERED: LORAZEPAM INJ 2 MG/1 ML VIAL IV ONE ×2 (09:22→10:00)
[2018-07-25] MEDS ORDERED: METHYLPREDNISOLONE INJ 125 MG/2 ML SDV IV SCH (10:00)
[2018-07-25] MEDS ORDERED: DIGOXIN INJ 0.5 MG/2 ML AMPULE IV ONE (10:45)
[2018-07-25] MEDS ORDERED: DIAZEPAM INJ 10 MG/2 ML DISP.SYRIN IV ONE (11:10)
[2018-07-25] MEDS ORDERED: DIAZEPAM INJ 10 MG/2 ML DISP.SYRIN IV PRN (11:35)
[2018-07-25] MEDS: FUROSEMIDE INJ/PF 20 MG/2 ML SDV IV SCH ×2 (12:08→23:48)
[2018-07-25] MEDS: METHYLPREDNISOLONE INJ 125 MG/2 ML SDV IV SCH (12:08)
[2018-07-25] MEDS: DOCUSATE SODIUM 100 MG CAPSULE PO SCH ×2 (12:09→23:39)
[2018-07-25] MEDS: DILTIAZEM HCL 180 MG CAPSULE.CR PO SCH (12:09)
[2018-07-25] MEDS: LEVOTHYROXINE SODIUM 0.05 MG TABLET PO SCH (12:09)
[2018-07-25] MEDS: FLUTICASONE/VILANTEROL 100-25 MCG/DOSE IH SCH (12:09)
[2018-07-25] MEDS: INSULIN REG, HUMAN 100 UNIT/ML 3 ML VIAL (PYX) SUBCUT SCH (12:09)
[2018-07-25] MEDS: BUSPIRONE HCL 10 MG TABLET PO SCH ×2 (12:09→23:39)
[2018-07-25] MEDS: LACTOBACILLUS ACIDOPHILUS 250 MG TAB PO SCH (12:09)
[2018-07-25] MEDS: APIXABAN 2.5 MG TABLET PO SCH ×2 (12:10→23:40)
[2018-07-25] MEDS: MAGNESIUM OXIDE 400 MG TABLET PO SCH ×2 (12:10→23:39)
[2018-07-25] MEDS: NICOTINE 21 MG/24 HR PATCH.TD24 TD SCH (12:10)
[2018-07-25] MEDS: METOPROLOL TARTRATE 25 MG TABLET PO SCH (12:10)
[2018-07-25] MEDS: POTASSIUM CHLORIDE 20 MEQ/15 ML UDCUP PO SCH (12:10)
[2018-07-25] MEDS: ESCITALOPRAM OXALATE 10 MG TABLET PO SCH (12:10)
[2018-07-25] MEDS: DULOXETINE HCL 30 MG CAPSULE.DR PO SCH (12:10)
[2018-07-25] MEDS: GUAIFENESIN 600 MG TABLET.SA PO SCH ×2 (12:10→23:38)
[2018-07-25] MEDS: MULTIVITAMIN TABLET PO SCH (12:11)
[2018-07-25] MEDS: ALBUMIN HUMAN 12.5 GM/50 ML RTUINJ IV SCH ×4 (12:11→15:57)
[2018-07-25] MEDS: FAMOTIDINE 20 MG TABLET PO SCH ×2 (12:11→23:38)
--- NOTE | 2018-07-25 13:53 | PDOC PROGRESS REPORT ---
Subjective Progress Note for:: 07/25/18 Subjective:: 73 year old female with history of atrial fibrillation congestive heart failure, hypertension, COPD on 2 L oxygen CPAP at night depression came to the emergency room with history of shortness of breath for 1 day duration associated with loose stools twice a day for the last 3 days. No chest pains as per the patient. No fever noted. No nausea no vomiting's. Complains of lightheadedness. Patient states she is compliant with her medications. She is also complaining of palpitations and feeling like her heart is racing away. Workup was done in the ER BNP was 6900, EKG found to be in A. fib with RVR patient was started on Cardizem drip medical consult was called for admission. 07/22/2018-patient is doing much better today. According to the patient shortne ss of breath is much improved. Still in A. fib with rapid ventricular rate. Heart rate is around 120. Patient presently on 5 mg of Cardizem drip. To start on Cardizem CD 240 mg p.o. daily today. She is comfortably in the bed denies any complaints. She wants to go to a rehab facility for short-term physical therapy. 07/23/2018-patient is complaining of shortness of breath on examination she is on BiPAP she is tachypneic. The heart rate in the 120s. She is converted to sinus rhythm last night. No acute events in the last 24 hours. Patient is afebrile. 07/24/2018-last night patient went into respiratory distress she was placed on BiPAP she was given IV Lasix chest x-ray was done shows pleural effusions ABG was within normal range CT head was negative for any strokes this morning pat ient is still shortness of breath better than last night alert and awake oriented able to give her date about able to tell me where she is at family members at bedside they happy with the care so far. Patient is requesting to go to a rehab facility. 07/25/2018-pt is more agitated today and fused and not cooperative. She is on BiPAP. Pulse ox on a 50% oxygen is around 97%. We try to do the ABG but the patient is not cooperative. I spoke to patient's daughter given an update she wants everything to be done she wants her mom as a full code. Plan to do the CT head without contrast today. To arrange for speech therapy today. Reason For Visit: ATRIAL FLUTTER Physical Exam Vital Signs: Temp Pulse Resp BP Pulse Ox 97.4 F 113 H 21 H 119/47 L 95 07/25/18 12:00 07/25/18 12:00 07/25/18 12:00 07/25/18 12:00 07/25/18 12:00 Intake & Output 07/24/18 07/25/18 07/26/18 06:59 06:59 06:59 Intake Total 1085 750 50 Output Total 600 775 Balance 485 -25 50 Weight 82.7 kg 82 kg General appearance: PRESENT: mild distress, obese Head exam: PRESENT: atraumatic Mouth exam: PRESENT: moist, tongue midline Neck exam: ABSENT: carotid bruit, JVD, lymphadenopathy, thyromegaly Respiratory exam: PRESENT: crackles, decreased breath sounds, rhonchi, wheezes Cardiovascular exam: PRESENT: tachycardia GI/Abdominal exam: PRESENT: normal bowel sounds, soft. ABSENT: distended, guarding, mass, organolmegaly, rebound, tenderness Extremities exam: PRESENT: full ROM. ABSENT: calf tenderness, clubbing, pedal edema Neurological exam: PRESENT: altered Psychiatric exam: PRESENT: agitated Results Laboratory Results: 07/25/18 05:45 07/25/18 05:45 07/25/18 07/25/18 05:45 05:45 WBC 11.9 H RBC 3.74 Hgb 11.0 L Hct 32.7 L MCV 87 MCH 29.5 MCHC 33.7 RDW 14.0 Plt Count 162 Seg Neutrophils % 88.9 H Lymphocytes % 8.3 L Monocytes % 2.7 L Eosinophils % 0.0 Basophils % 0.1 Absolute Neutrophils 10.6 H Absolute Lymphocytes 1.0 Absolute Monocytes 0.3 Absolute Eosinophils 0.0 Absolute Basophils 0.0 Sodium 134.6 L Potassium 3.9 Chloride 102 Carbon Dioxide 25 Anion Gap 8 BUN 13 Creatinine 0.90 Est GFR ( Amer) > 60 Est GFR (Non-Af Amer) > 60 Glucose 101 Calcium 8.0 L Magnesium 2.1 Total Bilirubin 0.5 AST 44 H ALT 46 Alkaline Phosphatase 93 Total Protein 4.7 L Albumin 2.0 L 03/21/19 03/21/19 03/21/19 12:20 13:25 13:25 Creatine Kinase 67 63 CK-MB (CK-2) 1.99 Troponin I 0.094 NT-Pro-B Natriuret Pep 6620 H 07/21/18 07/21/18 07/22/18 19:05 19:05 01:00 Creatine Kinase 56 55 CK-MB (CK-2) Troponin I 0.094 NT-Pro-B Natriuret Pep 07/22/18 07/22/18 07/22/18 01:00 07:07 07:07 Creatine Kinase 53 CK-MB (CK-2) Troponin I 0.095 0.091 NT-Pro-B Natriuret Pep 07/22/18 07/23/18 07/23/18 07:07 23:52 23:52 Creatine Kinase 56 CK-MB (CK-2) 2.39 Troponin I 0.101 NT-Pro-B Natriuret Pep 6520 H 07/23/18 07/24/18 07/24/18 23:52 06:31 06:31 Creatine Kinase 93 CK-MB (CK-2) 2.89 Troponin I 0.115 NT-Pro-B Natriuret Pep 7130 H 07/24/18 07/24/18 07/24/18 11:47 11:47 18:27 Creatine Kinase 90 CK-MB (CK-2) 2.72 2.64 Troponin I 0.079 0.080 NT-Pro-B Natriuret Pep 07/24/18 07/24/18 07/25/18 18:27 18:44 00:35 Creatine Kinase Cancelled 105 CK-MB (CK-2) 2.59 Troponin I 0.071 NT-Pro-B Natriuret Pep 07/25/18 05:45 Creatine Kinase CK-MB (CK-2) Troponin I NT-Pro-B Natriuret Pep 8460 H Impressions: Chest CT 07/21/18 12:31 IMPRESSION: 1. Bilateral pleural effusions with mild compressive atelectasis in the lower lobes. 2. Cardiomegaly. Minimal pericardial effusion. 3. Possible 3 cm left renal mass. Head CT 07/23/18 23:42 IMPRESSION: Mild atrophy and small vessel ischemic change TECHNICAL DOCUMENTATION: Quality ID # [id number]: Final reports with documentation of one or more dose reduction techniques (e.g., Automated exposure control, adjustment of the mA and/or kV according to patient size, use of iterative reconstruction technique) copyright 2011 [employer]- All Rights Reserved Chest X-Ray 07/24/18 00:00 IMPRESSION: Bilateral pleural effusions, right greater than left. Assessment and Plan - Diagnosis (1) Altered mental status Is this a current diagnosis for this admission?: Yes Plan: 07/25/2018-patient is confused and agitated this morning. CT head done yesterday was negative for acute changes. Plan to do the MRI of the brain without contrast today to rule out any stroke. to check for swallowing evaluation speech therapy consult was requested. Neurochecks are requested by. Discussed the care plan with the patient's daughter Ranjana she is saying her mom is a full code and requesting everything to be done. (2) Atrial fibrillation with RVR Is this a current diagnosis for this admission?: Yes Plan: 07/21/2018-patient is going to be admitted for atrial fibrillation RVR he is going to be inpatient she is going to be in IMCU. To continue Cardizem drip to titrate to keep the heart rate less than 100. Restart Eliquis. GI prophylaxis was requested. Cardiac enzymes x3 will be requested. Cardiology consult is requested. 07/22/2018-patient admitted with atrial fibrillation with RVR most likely secondary to COPD exacerbation. She is on Cardizem drip until 1130 this morning started on a Cardizem CD 240 mg p.o. daily Cardizem drip was discontinued order was placed for Cardizem 10 mg IV every 6 as needed for the heart rate more than 110. Patient has chronic atrial fibrillation she is on Eliquis at home which was resumed during the hospital stay. 07/23/2018-patient was admitted with atrial flutter with RVR secondary to COPD exacerbation. Converted to sinus rhythm last night patient is still in sinus tachycardia on examination this morning. Latest heart rate is noted at 58 in the chart. Plan is to continue Cardizem 240 mg CD daily. Patient is also on Cardizem 10 mg IV every 6 as needed for heart rate more than 120. 07/24/2018-patient was admitted with atrial flutter RVR secondary to COPD exacerbation. Presently she is on p.o. Cardizem 180 mg twice a day. Still tachycardic. Heart rate is in the 100s. 07/25/2018 atrial fibrillation with RVR most likely secondary to COPD exacerbation. Cardiology consult was done. TSH is 15 should continue levothyroxine. Presently on Cardizem 180 mg twice a day. Still tachycardic heart rate is in the 100s. (3) COPD (chronic obstructive pulmonary disease) Qualifiers: Is this a current diagnosis for this admission?: No Plan: 07/21/2018 patient has history of COPD on 2 L oxygen she is denying she is smoking. Plan is to restart her home medications put her back on 2 L oxygen and start on CPAP at night. CT scan negative for pneumonia. But shows bilateral p leural effusions with cardiomegaly. 07/22/2018 patient has history of COPD she denies history of smoking on 2 L oxygen at home pulse ox here today is 96% on 4 L. She is also on CPAP at night. Chest x-ray shows bilateral pleural effusions with cardiomegaly. CT scan is negative for pneumonia. Plan is to continue Pulmicort nebulizations twice a day 07/23/2018-patient has history of COPD denies any history of smoking. She uses 2 L of oxygen at home. Pulse ox today is 96% on 4 L. Chest x-ray shows bilateral pleural effusions with cardiomegaly. CT scan is negative for pneumonia. Plan is to continue Pulmicort nebulizations twice a day. IV Solu-Medrol is not started because of the tachycardia. 07/24/2018-patient has history of COPD on 2 L of oxygen at home. Pulse ox is 97% on 2 L. Latest chest x-ray done last night shows bilateral pleural effusions. CT scan was negative for pneumonia. And is presently on IV Zithromax, ceftriaxone, DuoNeb nebulizations, Xopenex nebulizations. She is also on Pulmicort. Plan is to continue the present management and provide BiPAP on as- needed basis. ABG done this morning on 2.5 L pH is 7.49 PCO2 32 PO2 87.4 bicarb is 24. 07/25/2018-patient has history of COPD on 2 L oxygen at home. Pulse ox here this morning 95% on 35% oxygen on BiPAP. Chest x-ray shows bilateral pleural effusions. Chest x-ray examination indicates bilateral wheezing and crackles and crepitations at the bases. We try to do the ABG this morning unsuccessful. (4) Pleural effusion Is this a current diagnosis for this admission?: Yes Plan: 07/21/2018-CT scan shows bilateral pleural effusions most likely secondary to CHF. BNP is 6900. 07/22/2018 CT scan of the chest shows bilateral pleural effusions most likely secondary to congestive heart failure BNP came down to 6420 today. Lasix was resumed today. 07/23/2018-bilateral pleural effusions present in the chest x-ray secondary to CHF exacerbation. BNP is 6420. To continue Lasix. 07/24/2018 chest x-ray shows bilateral pleural effusions BNP today is 7130 charted on Lasix 20 mg IV every 12 hours because the blood pressures on the softer side. plan to recheck the BNP tomorrow. 07/25 patient has bilateral pleural effusions as seen by chest x-ray BNP went up to 18,900. Patient is on IV Lasix every 12 hours after discharge. It has a poor oral intake to give albumin 50 g IV 1 dose to improve the diuresis. (5) Hypokalemia Is this a current diagnosis for this admission?: Yes Plan: 07/21/2018 patient's potassium is 3.0 started on potassium supplementation hypokalemia may be secondary to diuretic use. 07/22/2018-patient's potassium level is 3.0 to give her 40 mEq of K rider today and continue p.o. potassium. Hypokalemia most likely secondary to diuretic therapy. 07/23/2018-patient is admitted with serum potassium level 3.0 she is getting potassium supplementation potassium level today is 3.5 plan is to continue supplements of potassium daily basis. 07/24/2018-serum potassium level today is 3.8 she is on potassium supplementation 40 mg daily plan is to continue the present management. 06/27/2018 patient serum potassium level is 3.9 hypokalemia is resolved. (6) CHF (congestive heart failure) Is this a current diagnosis for this admission?: No Plan: 07/21/2018 patient has history of congestive heart failure latest echocardiogram shows normal left ventricular systolic function most likely she has diastolic dysfunction which was chronic. BNP is 6900 and has bilateral pleural effusions on the CT scan. And is to resume the Lasix. 07/22/2018-patient has history of congestive heart failure, latest echocardiogram shows normal left ventricular systolic function but she has stage III/IV diastolic dysfunction which was chronic in nature. CT scan shows cardiomegaly with bilateral pleural effusions and elevated BNP. 07/23/2018-patient is given the history of congestive heart failure the echocardiogram shows normal left ventricular systolic function and stage III/IV diastolic dysfunction which was chronic in nature. CT scan shows bilateral pleural effusions and cardiomegaly and BNP was elevated. 2018-patient has history of congestive heart failure, echocardiogram shows normal left ventricular systolic function and stage IV diastolic dysfunction. The diastolic dysfunction is chronic in nature. CT scan shows bilateral pleural effusions, cardiomegaly BNP was elevated. 07/25/2018 patient has chronic left ventricular diastolic heart failure, and is presently on Lasix. lt Ventricular systolic function is normal. (7) Diabetes Qualifiers: Diabetes mellitus type: type 2 Diabetes mellitus carpet jack insulin use: without carpet jack use Diabetes mellitus complication status: without complication Qualified Code(s): E11.9 - Type 2 diabetes mellitus without complications Is this a current diagnosis for this admission?: No Plan: 07/21/2018-patient has history of diabetes mellitus not on home medications plan to put her on sliding scale to check her hemoglobin A1c tomorrow. 07/22/2018-patient has history of type 2 diabetes mellitus latest blood sugar is 91 presently on insulin sliding scale before meals and at bedtime plan is to continue the present management. 07/23/2018-patient's hemoglobin A1c is 4.8. Plan is to discontinue insulin sliding scale and to put her on a regular diet. 07/24/2018-hemoglobin A1c is 4.8 she was placed in diet and insulin sliding scale is discontinued yesterday. 2018-patient's hemoglobin A1c came back as 4.8 diet was switched to cardiac diet and insulin sliding scale is discontinued. (8) Chronic respiratory failure with hypoxia, on home O2 therapy Is this a current diagnosis for this admission?: No Plan: 07/21/2018 patient is admitted with acute exacerbation of COPD leading to acute on chronic respiratory failure. Today 77% on 2 L. Plan is to put her on BiPAP as needed basis. 07/22/2018 patient has history of COPD on 2 L oxygen he admitted with exacerbation of COPD in the emergency room pulse ox is 77% on 2 L it was improved to 94% on 4 L today. plan is to continue the present management. 07/23/2018-patient has history of COPD on 2 L oxygen at home. In the emergency room pulse ox is 77% on 2 L and it was improved to 96% on 2 4 L today. Patient needing on and off BiPAP. Acute on chronic respiratory failure with hypoxia most likely secondary to COPD exacerbation. 07/24/2018-patient has history of COPD on 2 L oxygen at home. Initially at the time of admission pulse ox are low requiring BiPAP. Last night patient went into respiratory distress with tachypnea and she was placed back on BiPAP. 06/27/2018-patient has history of COPD on 2 L oxygen at home in the emergency room she required BiPAP to keep the pulse ox is about 90%. Acute on chronic respiratory failure with hypoxia most likely secondary to underlying COPD exacerbation. (9) Type 2 diabetes with ulcer of lower extremity or foot Is this a current diagnosis for this admission?: No (10) Obesity (BMI 30-39.9) Is this a current diagnosis for this admission?: Yes - Time Time Spent with patient: 25-34 minutes Medications reviewed and adjusted accordingly: Yes Anticipated discharge: SNF
[2018-07-25] MEDS: LEVALBUTEROL HCL NEB 1.25 MG/3 ML AMPUL NEB PRN (20:23)
--- NOTE | 2018-07-25 21:46 | XCELERA REPORT ---
[address] [address] Transthoracic Echocardiogram Report Name: RADHA LAGUERRE Age: 73 yrs Gender: Female : 1945 Patient Status: Inpatient Patient Location: [address] [place] [address] Study Date: 07/24/2018 01:39 PM Height: 62 in Weight: 182 lb BSA: 1.8 m2 Procedure: A two-dimensional transthoracic echocardiogram with color flow Doppler was performed. Study Quality: Fair. Reason For Study: CHF History: CHF. Ordering Physician: TOMMIE AREVALO Performed By: Ranjana Ordonez Interpretation Summary CHF There is mild concentric left ventricular hypertrophy. LV EF is 25% Left ventricular systolic function is severely reduced. There is severe global hypokinesis of the left ventricle. There is no thrombus. There is no ventricular septal defect visualized. The left ventricle is mildly dilated. The right ventricle is normal in size and function. The right atrium is normal. The left atrium is severely dilated. The interatrial septum is intact with no evidence for an atrial septal defect. There is no Doppler evidence for an interatrial shunt There is no evidence of mitral valve prolapse. There is no vegetation seen on the mitral valve. There is no mitral valve stenosis. There is a moderate to severe amount of mitral regurgitation There is no aortic valvular vegetation. There is mild aortic stenosis There is a peak gradient of 19 mm of Hg. There is no LVOT obstruction. There is a mild amount of aortic regurgitation There is no tricuspid stenosis. There is a mild to moderate amount of tricuspid regurgitation There is moderate pulmonary hypertension by echo RVSP IS 46 TO 51 MM OF hG , WITH ra MEAN OF 15 TO 20. There is a trace amount of pulmonic regurgitation There is no pulmonic valvular stenosis. The aortic root is normal size. The inferior vena cava appeared dilated and decreased < 50% with respiration (RAP 15-20 mmHg) Small pericardial effusion. There are no echocardiographic or Doppler indications for cardiac tamponade Moderate size left pleural effusion. MMode/2D Measurements & Calculations RVDd: 1.6 cm LVIDd: 5.4 cm FS: 14.5 % Ao root diam: 2.7 cm IVSd: 1.2 cm LVIDs: 4.6 cm EDV(Teich): 139.7 ml Ao root area: 5.7 cm2 LVPWd: 1.2 cm ESV(Teich): 96.9 ml LA dimension: 5.5 cm EF(Teich): 30.6 % LVOT diam: 2.1 cm LVOT area: 3.5 cm2 Doppler Measurements & Calculations MV E max ludmila: MV P1/2t max ludmila: Ao V2 max: LV V1 max P.7 cm/sec 102.7 cm/sec 217.6 cm/sec 1.9 mmHg MV P1/2t: 61.6 msec Ao max PG: LV V1 max: MVA(P1/2t): 3.6 cm2 18.9 mmHg 68.1 cm/sec MV dec slope: ROSALIE(V,D): 1.1 cm2 487.9 cm/sec2 MV dec time: 0.15 sec PA V2 max: PI end-d ludmila: TR max ludmila: MV P1/2t-pr_phl: 101.7 cm/sec 153.2 cm/sec 278.0 cm/sec 43.5 msec PA max P.1 mmHg TR max P.9 mmHg Left Ventricle There is mild concentric left ventricular hypertrophy. The left ventricle is mildly dilated. LV EF is 25%. Left ventricular systolic function is severely reduced. There is severe global hypokinesis of the left ventricle. There is no thrombus. There is no ventricular septal defect visualized. Right Ventricle The right ventricle is normal in size and function. Atria The right atrium is normal. The left atrium is severely dilated. The interatrial septum is intact with no evidence for an atrial septal defect. There is no Doppler evidence for an interatrial shunt. Mitral Valve There is no evidence of mitral valve prolapse. There is no vegetation seen on the mitral valve. There is no mitral valve stenosis. There is a moderate to severe amount of mitral regurgitation. Aortic Valve There is no aortic valvular vegetation. There is mild aortic stenosis. There is a peak gradient of 19 mm of Hg. There is no LVOT obstruction. There is a mild amount of aortic regurgitation. Tricuspid Valve There is no tricuspid stenosis. There is a mild to moderate amount of tricuspid regurgitation. There is moderate pulmonary hypertension by echo. RVSP IS 46 TO 51 MM OF hG , WITH ra MEAN OF 15 TO 20. Pulmonic Valve There is no pulmonic valvular stenosis. There is a trace amount of pulmonic regurgitation. Great Vessels The aortic root is normal size. The inferior vena cava appeared dilated and decreased < 50% with respiration (RAP 15-20 mmHg). Effusions Small pericardial effusion. There are no echocardiographic or Doppler indications for cardiac tamponade. Moderate size left pleural effusion. : TOMMIE AREVALO > Kristen Davis
--- NOTE | 2018-07-25 22:55 | Progress Note ---
Provider Note Provider Note: CARDIOLOGY PROGRESS NOTE by Dr. Kristen Davis on 07/25/2018. SUBJECTIVE: The patient continues to be slightly short of breath. She has chronic orthopnea. She remains in atrial flutter with controlled ventricular response. She denies any chest pain or discomfort. She has no orthopnea. There is mild leg edema. There is no TIAs or CVA symptoms. There is no bleeding on Eliquis. PHYSICAL EXAMINATION: The patient mildly obese. In no acute distress. She appears to be chronically ill. Selected Entries 07/25/18 07/25/18 07/25/18 08:00 08:25 12:00 Temperature 97.5 F 97.4 F Temperature Axillary Axillary Source Pulse Rate 113 H Respiratory 21 H Rate Blood Pressure 119/47 L [Left Lower Arm ] Blood Pressure 71 Mean [Left Lower Arm] Blood Pressure Supine Position [Left Lower Arm] O2 Sat by Pulse 95 Oximetry Oxygen Delivery Bi-pap Method ( includes room air) Fraction of 35 Inspired Oxygen (FIO2) HEAD: Atraumatic, normocephalic. EYES: Pupils equal round and reactive to light, extraocular movements intact, sclera anicteric, conjunctiva are normal. ENT: TMs normal, nares patent, oropharynx clear without exudates. Moist mucous membranes. NECK: Normal range of motion, supple without lymphadenopathy or JVD. Carotids are equal there is no bruits. There is no thyromegaly. There is no accessory muscles of respiration in use. Trachea central LUNGS: There is diminished air entry and prolonged expiration. There is occasional scattered rhonchi. There are no wet rales of CHF. There is diminished breath sounds in the bases with bilateral dry crackles. On palpation there is no chest wall tenderness. HEART: S1-S2 is heard. S1 is of variable intensity. There is no S3 gallop. There is no S4 gallop. There is systolic murmur left sternal border and apex without radiation. There is no rub.. ABDOMEN: Soft, nontender, normoactive bowel sounds. There is no hepatosplenic megaly no guarding, no rebound. No masses appreciated. EXTREMITIES: Normal range of motion, no pitting or edema. No clubbing or cyanosis. Femorals are well felt. There is no femoral bruits. Leg pulses are well felt. There is no DVT or cellulitis. There is no calf tenderness NEUROLOGICAL: Cranial nerves II through XII grossly intact. Normal speech, normal gait. The patient is awake alert oriented x3 with no focal deficits. PSYCH: Normal mood, normal affect. The patient judgment and insight are intact SKIN: Warm, Dry, normal turgor, no rashes or lesions noted. There is no petechia or ecchymosis The patient's echocardiogram shows LV ejection fraction of 25%. Please see report. Lab results reviewed. IMPRESSION/RECOMMENDATION: 1. Paroxysmal atrial fibrillation. At present patient is in atrial flutter. We will continue the patient on Cardizem CD 180 mg p.o. every 12 hours, and increase as tolerated. We will also continue the patient on Eliquis. 2. Acute exacerbation of COPD: Improving continue respiratory treatments and oxygen. 3. Small bilateral pleural effusions. Most likely secondary to atrial fibrillation with rapid ventricular response causing heart failure on a patient with a history of diastolic dysfunction. Continue diuretics. 4. Hypokalemia: Replace potassium. 5. Diabetes mellitus type 2 [id number] 6. Hypothyroidism: Note thyroid stimulating hormones a very high, suggesting hypothyroidism. Would recommend increasing the patient's thyroid replacement. Will increase the patient's thyroxine to 125 mcg p.o. daily, and watch heart rate response to the patient's increased dose of levothyroxine. [Note in May the patient was admitted with iatrogenic hyper thyroidism.] 7. History of GERD: At present stable. Continue proton pump inhibitors. 8. History of depression: Continue antidepressants. 9. History of lymphoma: At present seems to be in remission 10. History of acute on chronic respiratory failure. At present blood gases show that the patient's PO2 and PCO2 within normal limits. Continue oxygen. Medications reviewed. Medications adjusted. Management plan discussed with attending physician. Medical decision making I was of high complexity, in view of the need to adjust medication doses. 40 minutes spent on this patient more than 50% of time spent in direct patient care. Will follow with you
[2018-07-25] MEDS: MONTELUKAST SODIUM 10 MG TABLET PO SCH (23:38)
[2018-07-25] MEDS: ATORVASTATIN CALCIUM 80 MG TABLET PO SCH (23:38)
[2018-07-25] MEDS: AZITHROMYCIN 500 MG in DEXTROSE 5%-WATER 250 ML IV SCH (23:40)
[2018-07-25] MEDS: MELATONIN 3 MG TABLET PO SCH (23:40)
[2018-07-26] MEDS: METOPROLOL TARTRATE 25 MG TABLET PO SCH ×2 (00:21→22:52)
[2018-07-26] MEDS ORDERED: METOPROLOL TARTRATE 25 MG TABLET PO ONE ×2 (02:00→11:15)
[2018-07-26] MEDS ORDERED: LISINOPRIL 5 MG TABLET PO ONE (02:00)
[2018-07-26] MEDS: DILTIAZEM HCL 180 MG CAPSULE.CR PO SCH (02:21)
[2018-07-26] MEDS: FUROSEMIDE INJ/PF 20 MG/2 ML SDV IV SCH ×3 (06:21→22:43)
[2018-07-26 06:23] LABS: ABSOLUTE LYMPHOCYTES (AUTO) 0.8 10^3/uL (0.5-4.7); ABSOLUTE MONOCYTES (AUTO) 0.4 10^3/uL (0.1-1.4); HEMOGLOBIN 10.9 g/dL (12.0-15.5); LYMPHOCYTES % (AUTO) 6.9 % (13-45); MEAN CORPUSCULAR HEMOGLOBIN 29.5 pg (27.0-33.4); MEAN CORPUSCULAR HGB CONC 33.9 g/dL (32.0-36.0); MEAN CORPUSCULAR VOLUME 87 fl (80-97); MONOCYTES % (AUTO) 3.4 % (3-13); PLATELET COUNT 177 10^3/uL (150-450); RED BLOOD COUNT 3.69 10^6/uL (3.72-5.28); RED CELL DISTRIBUTION WIDTH 14.2 % (11.5-14.0); SEGMENTED NEUTROPHILS % (AUTO) 89.7 % (42-78); TOTAL CELLS COUNTED % (AUTO) 100 %; WHITE BLOOD COUNT 12.2 10^3/uL (4.0-10.5)
[2018-07-26] MEDS: CEFTRIAXONE 1 GM/D5W RTU 1 GM/50 ML RTUPB IV SCH (06:26)
[2018-07-26] MEDS: LEVOTHYROXINE SODIUM 0.05 MG TABLET PO SCH (06:27)
[2018-07-26 06:52] LABS: ALANINE AMINOTRANSFERASE 45 U/L (9-52); ALBUMIN 2.3 g/dL (3.5-5.0); ALKALINE PHOSPHATASE 85 U/L (38-126); ASPARTATE AMINO TRANSFERASE 44 U/L (14-36); BILIRUBIN,DIRECT 0.3 mg/dL (0.0-0.4); BILIRUBIN,TOTAL 0.6 mg/dL (0.2-1.3); BLOOD UREA NITROGEN 14 mg/dL (7-20); CALCIUM 8.1 mg/dL (8.4-10.2); GLUCOSE 84 mg/dL (75-110); POTASSIUM 3.8 mmol/L (3.6-5.0); TOTAL PROTEIN 4.9 g/dL (6.3-8.2)
[2018-07-26 06:57] LABS: ANION GAP 5 (5-19); CARBON DIOXIDE 28 mmol/L (22-30); CHLORIDE 102 mmol/L (98-107); SODIUM 135.2 mmol/L (137-145)
[2018-07-26] MEDS: BUDESONIDE NEB 0.5 MG/2 ML AMPUL NEB SCH ×2 (08:42→21:25)
[2018-07-26] MEDS: DOCUSATE SODIUM 100 MG CAPSULE PO SCH ×2 (09:46→22:44)
[2018-07-26] MEDS: METHYLPREDNISOLONE INJ 125 MG/2 ML SDV IV SCH (09:55)
[2018-07-26] MEDS: FLUTICASONE/VILANTEROL 100-25 MCG/DOSE IH SCH (09:55)
[2018-07-26] MEDS: NICOTINE 21 MG/24 HR PATCH.TD24 TD SCH (09:55)
[2018-07-26] MEDS: LISINOPRIL 5 MG TABLET PO SCH ×2 (09:56→22:54)
[2018-07-26] MEDS: GUAIFENESIN 600 MG TABLET.SA PO SCH ×2 (09:56→22:54)
[2018-07-26] MEDS: DULOXETINE HCL 30 MG CAPSULE.DR PO SCH (09:56)
[2018-07-26] MEDS: ESCITALOPRAM OXALATE 10 MG TABLET PO SCH (09:56)
[2018-07-26] MEDS: BUSPIRONE HCL 10 MG TABLET PO SCH ×2 (09:57→22:44)
[2018-07-26] MEDS: DIGOXIN INJ 0.5 MG/2 ML AMPULE IV SCH (09:57)
[2018-07-26] MEDS: MAGNESIUM OXIDE 400 MG TABLET PO SCH ×2 (09:57→17:43)
[2018-07-26] MEDS: MULTIVITAMIN TABLET PO SCH (09:57)
[2018-07-26] MEDS: APIXABAN 2.5 MG TABLET PO SCH (09:58)
[2018-07-26] MEDS: POTASSIUM CHLORIDE 20 MEQ/15 ML UDCUP PO SCH (09:58)
[2018-07-26] MEDS: LACTOBACILLUS ACIDOPHILUS 250 MG TAB PO SCH (09:58)
[2018-07-26] MEDS: FAMOTIDINE 20 MG TABLET PO SCH ×2 (09:58→22:53)
[2018-07-26] MEDS ORDERED: METOPROLOL TARTRATE 25 MG TABLET PO SCH (10:00)
[2018-07-26 11:38] LABS: ABSOLUTE MONOCYTES (AUTO) 0.5 10^3/uL (0.1-1.4); ABSOLUTE NEUT (AUTO) 13.5 10^3/uL (1.7-8.2); HEMATOCRIT 35.1 % (36.0-47.0); HEMOGLOBIN 11.8 g/dL (12.0-15.5); LYMPHOCYTES % (AUTO) 6.6 % (13-45); MEAN CORPUSCULAR HEMOGLOBIN 29.3 pg (27.0-33.4); MEAN CORPUSCULAR HGB CONC 33.6 g/dL (32.0-36.0); MEAN CORPUSCULAR VOLUME 87 fl (80-97); PLATELET COUNT 221 10^3/uL (150-450); RED BLOOD COUNT 4.03 10^6/uL (3.72-5.28); RED CELL DISTRIBUTION WIDTH 14.2 % (11.5-14.0); SEGMENTED NEUTROPHILS % (AUTO) 90.4 % (42-78); TOTAL CELLS COUNTED % (AUTO) 100 %; WHITE BLOOD COUNT 14.9 10^3/uL (4.0-10.5)
[2018-07-26 11:45] LABS: INTERNATIONAL RATION (INR) 1.28; PARTIAL THROMBOPLASTIN TIME 33.2 SEC (23.5-35.8); PROTHROMBIN TIME 16.6 SEC (11.4-15.4)
[2018-07-26] MEDS: HEPARIN SOD (PORCINE) 1,000 UNIT/ML 10 ML VIAL IV PRN (13:18)
[2018-07-26] MEDS: HEPARIN SODIUM,PORCINE/D5W 25,000 UNIT/250 ML RTUINJ IV PRN (13:24)
--- NOTE | 2018-07-26 19:08 | PDOC PROGRESS REPORT ---
Subjective Progress Note for:: 07/26/18 Subjective:: This is a 73 yr old female with a PMH of atrial fibrillation, congestive heart failure, hypertension, COPD on 2 L oxygen, CPAP at night, and depression who presented with increasing SOB. She was also found to be in AFib with RVR and also treated for CHF congestion. Chest x-ray shows bilateral pleural effusions. Per RN, she has been BIPAP- dependent for the past 2 days. She does desaturate to 80% off BIPAP. She reports of SOB and says she feels better with the BIPAP. She is currently in AFib, rate- controlled in the 80s. Will consult radiology for thoracentesis of persistent bilateral effusions despite being on IV diuresis. Will switch Eliquis to heparin to drip. Reason For Visit: ATRIAL FLUTTER Physical Exam Vital Signs: Temp Pulse Resp BP Pulse Ox 97.4 F 39 L 18 112/71 92 07/26/18 15:12 07/26/18 15:12 07/26/18 15:12 07/26/18 15:12 07/26/18 15:12 Intake & Output 07/25/18 07/26/18 07/27/18 06:59 06:59 06:59 Intake Total 750 737 50 Output Total 775 1310 825 Balance -25 -573 -775 Weight 180 lb 12.465 oz 190 lb 4.143 oz General appearance: PRESENT: no acute distress, well-developed, well-nourished Head exam: PRESENT: atraumatic, normocephalic Eye exam: PRESENT: conjunctiva pink, EOMI, PERRLA. ABSENT: scleral icterus Ear exam: PRESENT: normal external ear exam Mouth exam: PRESENT: moist, tongue midline Neck exam: ABSENT: carotid bruit, JVD, lymphadenopathy, thyromegaly Respiratory exam: PRESENT: decreased breath sounds - bases, rhonchi. ABSENT: rales Cardiovascular exam: PRESENT: irregular rhythm. ABSENT: systolic murmur Pulses: PRESENT: normal dorsalis pedis pul GI/Abdominal exam: PRESENT: normal bowel sounds, soft. ABSENT: distended, guarding, mass, organolmegaly, rebound, tenderness Rectal exam: PRESENT: deferred Neurological exam: PRESENT: alert, awake, oriented to person, oriented to place, oriented to time, oriented to situation, CN II-XII grossly intact. ABSENT: motor sensory deficit Results Laboratory Results: 07/26/18 11:26 07/26/18 05:49 07/26/18 07/26/18 07/26/18 05:49 05:49 11:26 WBC 12.2 H 14.9 H RBC 3.69 L 4.03 Hgb 10.9 L 11.8 L Hct 32.0 L 35.1 L MCV 87 87 MCH 29.5 29.3 MCHC 33.9 33.6 RDW 14.2 H 14.2 H Plt Count 177 221 Seg Neutrophils % 89.7 H 90.4 H Lymphocytes % 6.9 L 6.6 L Monocytes % 3.4 3.0 Eosinophils % 0.0 0.0 Basophils % 0.0 0.0 Absolute Neutrophils 11.0 H 13.5 H Absolute Lymphocytes 0.8 1.0 Absolute Monocytes 0.4 0.5 Absolute Eosinophils 0.0 0.0 Absolute Basophils 0.0 0.0 Sodium 135.2 L Potassium 3.8 Chloride 102 Carbon Dioxide 28 Anion Gap 5 BUN 14 Creatinine 0.90 Est GFR ( Amer) > 60 Est GFR (Non-Af Amer) > 60 Glucose 84 Calcium 8.1 L Magnesium 2.2 Total Bilirubin 0.6 AST 44 H ALT 45 Alkaline Phosphatase 85 Total Protein 4.9 L Albumin 2.3 L 07/21/18 07/21/18 07/21/18 12:20 13:25 13:25 Creatine Kinase 67 63 CK-MB (CK-2) 1.99 Troponin I 0.094 NT-Pro-B Natriuret Pep 6620 H 07/21/18 07/21/18 07/22/18 19:05 19:05 01:00 Creatine Kinase 56 55 CK-MB (CK-2) Troponin I 0.094 NT-Pro-B Natriuret Pep 07/22/18 07/22/18 07/22/18 01:00 07:07 07:07 Creatine Kinase 53 CK-MB (CK-2) Troponin I 0.095 0.091 NT-Pro-B Natriuret Pep 07/22/18 07/23/18 07/23/18 07:07 23:52 23:52 Creatine Kinase 56 CK-MB (CK-2) 2.39 Troponin I 0.101 NT-Pro-B Natriuret Pep 6520 H 07/23/18 07/24/18 07/24/18 23:52 06:31 06:31 Creatine Kinase 93 CK-MB (CK-2) 2.89 Troponin I 0.115 NT-Pro-B Natriuret Pep 7130 H 07/24/18 07/24/18 07/24/18 11:47 11:47 18:27 Creatine Kinase 90 CK-MB (CK-2) 2.72 2.64 Troponin I 0.079 0.080 NT-Pro-B Natriuret Pep 07/24/18 07/24/18 07/25/18 18:27 18:44 00:35 Creatine Kinase Cancelled 105 CK-MB (CK-2) 2.59 Troponin I 0.071 NT-Pro-B Natriuret Pep 07/25/18 07/26/18 05:45 05:49 Creatine Kinase CK-MB (CK-2) Troponin I NT-Pro-B Natriuret Pep 8460 H 19429 H Impressions: Chest CT 07/21/18 12:31 IMPRESSION: 1. Bilateral pleural effusions with mild compressive atelectasis in the lower lobes. 2. Cardiomegaly. Minimal pericardial effusion. 3. Possible 3 cm left renal mass. Head CT 07/23/18 23:42 IMPRESSION: Mild atrophy and small vessel ischemic change TECHNICAL DOCUMENTATION: Quality ID # 436: Final reports with documentation of one or more dose reduction techniques (e.g., Automated exposure control, adjustment of the mA and/or kV according to patient size, use of iterative reconstruction technique) copyright 2011 [employer]- All Rights Reserved Chest X-Ray 07/24/18 00:00 IMPRESSION: Bilateral pleural effusions, right greater than left. Assessment and Plan - Diagnosis (1) Acute on chronic respiratory failure with hypoxemia Is this a current diagnosis for this admission?: Yes Plan: Secondary to CHF exacerbation with bilateral pleural effusions. Currently on BIPAP. (2) Acute exacerbation of CHF (congestive heart failure) Is this a current diagnosis for this admission?: Yes Plan: Recent echo shows and EF of 25%. Continue IV Lasix. (3) Pleural effusion Is this a current diagnosis for this admission?: Yes Plan: Bilateral effusions likely related to acute congestive heart failure. Will c onsult radiology for thoracentesis of persistent bilateral effusions despite being on IV diuresis. Will switch Eliquis to heparin to drip. (4) Atrial fibrillation with RVR Is this a current diagnosis for this admission?: Yes Plan: Currently rate-controlled. Will switch Eliquis to heparin to drip for anticipated thoracentesis.
--- NOTE | 2018-07-26 21:41 | Progress Note ---
Provider Note Provider Note: CARDIOLOGY PROGRESS NOTE by Dr. Kristen Davis on 07/26/2018. Subjective: The patient still continues to be short of breath and has chronic orthopnea. There is no PND. There is only mild leg edema. There is no chest pain or discomfort. The patient's Eliquis has been stopped and the patient is going to be switched to heparin drip in anticipation of of right thoracentesis in view of the increasing right pleural effusion. There is no TIA CVA symptoms. There is no bleeding on anticoagulation. PHYSICAL EXAMINATION: The patient is mildly obese. She is chronically ill. She is in no acute distress. Selected Entries 07/26/18 07/26/18 07/26/18 07:28 08:00 08:43 Temperature 97.6 F Pulse Rate 115 H Respiratory 20 Rate Blood Pressure 115/53 L Blood Pressure 73 Mean O2 Sat by Pulse 93 Oximetry Fraction of 35 Inspired Oxygen (FIO2) Oxygen Flow 3.5 Rate O2 Sat by Pulse 96 Oximetry by Telemetry HEAD: Atraumatic, normocephalic. EYES: Pupils equal round and reactive to light, extraocular movements intact, sclera anicteric, conjunctiva are normal. ENT: TMs normal, nares patent, oropharynx clear without exudates. Moist mucous membranes. NECK: Normal range of motion, supple without lymphadenopathy or JVD. Carotids are equal there is no bruits. There is no thyromegaly. There is no accessory muscles of respiration in use. Trachea central LUNGS: There is diminished air entry and prolonged expiration. There is occasional scattered rhonchi. There are no wet rales of CHF. There is diminished breath sounds in the bases with bilateral dry crackles. There is increasing callus on the right lower zone and right mid zone of the lung. On palpation there is no chest wall tenderness. HEART: S1-S2 is heard. S1 is of variable intensity. There is no S3 gallop. There is no S4 gallop. There is systolic murmur left sternal border and apex without radiation. There is no rub.. ABDOMEN: Soft, nontender, normoactive bowel sounds. There is no hepatosplenic megaly no guarding, no rebound. No masses appreciated. EXTREMIT IES: Normal range of motion, no pitting or edema. No clubbing or cyanosis. Femorals are well felt. There is no femoral bruits. Leg pulses are well felt. There is no DVT or cellulitis. There is no calf tenderness NEUROLOGICAL: Cranial nerves II through XII grossly intact. Normal speech, normal gait. The patient is awake alert oriented x3 with no focal deficits. PSYCH: Normal mood, normal affect. The patient judgment and insight are intact SKIN: Warm, Dry, normal turgor, no rashes or lesions noted. There is no petechia or ecchymosis 07/26/18 07/26/18 07/26/18 05:49 05:49 05:49 WBC 12.2 H RBC 3.69 L Hgb 10.9 L Hct 32.0 L MCV 87 MCH 29.5 MCHC 33.9 RDW 14.2 H Plt Count 177 Sodium 135.2 L Potassium 3.8 Chloride 102 Carbon Dioxide 28 Anion Gap 5 BUN 14 Creatinine 0.90 Est GFR (Non-Af Amer) > 60 Glucose 84 Calcium 8.1 L Magnesium 2.2 Total Bilirubin 0.6 Direct Bilirubin 0.3 Neonat Total Bilirubin Not Reportable Neonat Direct Bilirubin Not Reportable Neonat Indirect Bili Not Reportable AST 44 H ALT 45 Alkaline Phosphatase 85 NT-Pro-B Natriuret Pep 82049 H Total Protein 4.9 L Albumin 2.3 L IMPRESSION/RECOMMENDATION: 1. Paroxysmal atrial fibrillation. At present patient is in atrial flutter. We will continue the patient on Cardizem CD 180 mg p.o. every 12 hours, and increase as tolerated. We will also continue the patient on Eliquis. 2. Acute exacerbation of COPD: Improving continue respiratory treatments and oxygen. 3. Small bilateral pleural effusions. Most likely secondary to atrial fibrillation with rapid ventricular response causing heart failure on a patient with a history of diastolic dysfunction. Continue diuretics. 4. Cardiomyopathy with severely reduced LV ejection fraction. If the patient does not improve with current treatment including IV diuretics. Then will consider starting the patient on a dobutamine drip. 5. Diabetes mellitus type 2 [id number] 6. Hypothyroidism: Note thyroid stimulating hormones a very high, suggesting hypothyroidism. Would recommend increasing the patient's thyroid replacement. Will increase the patient's thyroxine to 125 mcg p.o. daily, and watch heart rate response to the patient's increased dose of levothyroxine. [Note in May the patient was admitted with iatrogenic hyper thyroidism.] 7. History of GERD: At present stable. Continue proton pump inhibitors. 8. History of depression: Continue antidepressants. 9. History of lymphoma: At present seems to be in remission 10. History of acute on chronic respiratory failure. At present blood gases show that the patient's PO2 and PCO2 within normal limits. Continue oxygen. Medications reviewed. Medications adjusted. Management plan discussed with attending physician. Medical decision making I was of high complexity, in view of the need to adjust medication doses. 40 minutes spent on this patient more than 50% of time spent in direct patient care. Will follow with you
[2018-07-26] MEDS: MONTELUKAST SODIUM 10 MG TABLET PO SCH (22:44)
[2018-07-26] MEDS: ATORVASTATIN CALCIUM 80 MG TABLET PO SCH (22:45)
[2018-07-26] MEDS: AZITHROMYCIN 500 MG in DEXTROSE 5%-WATER 250 ML IV SCH (22:45)
[2018-07-26] MEDS: MELATONIN 3 MG TABLET PO SCH (22:57)
[2018-07-27] MEDS: FUROSEMIDE INJ/PF 20 MG/2 ML SDV IV SCH ×3 (06:51→21:58)
[2018-07-27] MEDS: LEVOTHYROXINE SODIUM 0.05 MG TABLET PO SCH (06:52)
[2018-07-27] MEDS: CEFTRIAXONE 1 GM/D5W RTU 1 GM/50 ML RTUPB IV SCH (06:52)
[2018-07-27] MEDS: LEVALBUTEROL HCL NEB 1.25 MG/3 ML AMPUL NEB PRN (08:38)
[2018-07-27] MEDS: BUDESONIDE NEB 0.5 MG/2 ML AMPUL NEB SCH ×2 (08:38→20:51)
[2018-07-27] MEDS: DIGOXIN INJ 0.5 MG/2 ML AMPULE IV SCH (09:25)
[2018-07-27] MEDS: METHYLPREDNISOLONE INJ 125 MG/2 ML SDV IV SCH (09:27)
[2018-07-27] MEDS: LISINOPRIL 5 MG TABLET PO SCH ×2 (09:29→21:57)
[2018-07-27] MEDS: MULTIVITAMIN TABLET PO SCH (09:29)
[2018-07-27] MEDS: MAGNESIUM OXIDE 400 MG TABLET PO SCH ×2 (09:29→18:02)
[2018-07-27] MEDS: POTASSIUM CHLORIDE 20 MEQ/15 ML UDCUP PO SCH (09:29)
[2018-07-27] MEDS: ESCITALOPRAM OXALATE 10 MG TABLET PO SCH (09:29)
[2018-07-27] MEDS: DULOXETINE HCL 30 MG CAPSULE.DR PO SCH (09:29)
[2018-07-27] MEDS: FAMOTIDINE 20 MG TABLET PO SCH ×2 (09:29→21:57)
[2018-07-27] MEDS: LACTOBACILLUS ACIDOPHILUS 250 MG TAB PO SCH (09:30)
[2018-07-27] MEDS: BUSPIRONE HCL 10 MG TABLET PO SCH ×2 (09:30→21:56)
[2018-07-27] MEDS: GUAIFENESIN 600 MG TABLET.SA PO SCH ×2 (09:30→21:56)
[2018-07-27] MEDS: METOPROLOL TARTRATE 25 MG TABLET PO SCH ×2 (09:31→21:57)
[2018-07-27] MEDS: DOCUSATE SODIUM 100 MG CAPSULE PO SCH ×2 (09:31→21:57)
[2018-07-27] MEDS: FLUTICASONE/VILANTEROL 100-25 MCG/DOSE IH SCH (09:31)
[2018-07-27] MEDS: NICOTINE 21 MG/24 HR PATCH.TD24 TD SCH (09:32)
--- NOTE | 2018-07-27 16:01 | PDOC PROGRESS REPORT ---
Subjective Progress Note for:: 07/27/18 Subjective:: This is a 73 yr old female with a PMH of atrial fibrillation, congestive heart failure, hypertension, COPD on 2 L oxygen, CPAP at night, and depression who presented with increasing SOB. She was also found to be in AFib with RVR and also treated for CHF congestion. 07/26: Chest x-ray shows bilateral pleural effusions. Per RN, she has been BIPAP- dependent for the past 2 days. She does desaturate to 80% off BIPAP. She reports of SOB and says she feels better with the BIPAP. She is currently in AFib, rate- controlled in the 80s. Will consult radiology for thoracentesis of persistent bilateral effusions despite being on IV diuresis. Will switch Eliquis to heparin drip. 07/27: Patient continues to be on BIPAP. She desaturated to 70% when she was repositioned and laid down for a bath. She quickly recovered to the high 90s after placing her in upright position and increasing FiO2 from 40 to 70%. She says her SOB has remained stable on the BIPAP. Denies chest pain. Anticipating thoracentesis tomorrow. Cardiology has also recommended central line placement for initiation of dobutamine infusion for her heart failure. Reason For Visit: ATRIAL FLUTTER Physical Exam Vital Signs: Temp Pulse Resp BP Pulse Ox 97.4 F 97 24 H 99/78 L 95 07/27/18 11:11 07/27/18 11:11 07/27/18 12:21 07/27/18 11:11 07/27/18 12:21 Intake & Output 07/26/18 07/27/18 07/28/18 06:59 06:59 06:59 Intake Total 737 435 50 Output Total 1310 2150 225 Balance -689 -4874 -879 Weight 190 lb 4.143 oz 186 lb 8.177 oz General appearance: PRESENT: no acute distress, well-developed, well-nourished Head exam: PRESENT: atraumatic, normocephalic Eye exam: PRESENT: conjunctiva pink, EOMI, PERRLA. ABSENT: scleral icterus Ear exam: PRESENT: normal external ear exam Mouth exam: PRESENT: moist, tongue midline Neck exam: ABSENT: carotid bruit, JVD, lymphadenopathy, thyromegaly Respiratory exam: PRESENT: decreased breath sounds, rhonchi. ABSENT: rales, wheezes Cardiovascular exam: PRESENT: irregular rhythm. ABSENT: diastolic murmur, rubs Pulses: PRESENT: normal dorsalis pedis pul GI/Abdominal exam: PRESENT: normal bowel sounds, soft. ABSENT: distended, guarding, mass, organolmegaly, rebound, tenderness Rectal exam: PRESENT: deferred Neurological exam: PRESENT: alert, awake, oriented to person, oriented to place, oriented to time, oriented to situation, CN II-XII grossly intact. ABSENT: motor sensory deficit Results Laboratory Results: 07/26/18 11:26 07/26/18 05:49 07/27/18 09:15 TSH 15.70 H 07/21/18 07/21/18 07/21/18 12:20 13:25 13:25 Creatine Kinase 67 63 CK-MB (CK-2) 1.99 Troponin I 0.094 NT-Pro-B Natriuret Pep 6620 H 07/21/18 07/21/18 07/22/18 19:05 19:05 01:00 Creatine Kinase 56 55 CK-MB (CK-2) Troponin I 0.094 NT-Pro-B Natriuret Pep 07/22/18 07/22/18 07/22/18 01:00 07:07 07:07 Creatine Kinase 53 CK-MB (CK-2) Troponin I 0.095 0.091 NT-Pro-B Natriuret Pep 07/22/18 07/23/18 07/23/18 07:07 23:52 23:52 Creatine Kinase 56 CK-MB (CK-2) 2.39 Troponin I 0.101 NT-Pro-B Natriuret Pep 6520 H 07/23/18 07/24/18 07/24/18 23:52 06:31 06:31 Creatine Kinase 93 CK-MB (CK-2) 2.89 Troponin I 0.115 NT-Pro-B Natriuret Pep 7130 H 07/24/18 07/24/18 07/24/18 11:47 11:47 18:27 Creatine Kinase 90 CK-MB (CK-2) 2.72 2.64 Troponin I 0.079 0.080 NT-Pro-B Natriuret Pep 07/24/18 07/24/18 07/25/18 18:27 18:44 00:35 Creatine Kinase Cancelled 105 CK-MB (CK-2) 2.59 Troponin I 0.071 NT-Pro-B Natriuret Pep 07/25/18 07/26/18 05:45 05:49 Creatine Kinase CK-MB (CK-2) Troponin I NT-Pro-B Natriuret Pep 8460 H 02688 H Impressions: Chest CT 07/21/18 12:31 IMPRESSION: 1. Bilateral pleural effusions with mild compressive atelectasis i n the lower lobes. 2. Cardiomegaly. Minimal pericardial effusion. 3. Possible 3 cm left renal mass. Head CT 07/23/18 23:42 IMPRESSION: Mild atrophy and small vessel ischemic change TECHNICAL DOCUMENTATION: Quality ID # 436: Final reports with documentation of one or more dose reduction techniques (e.g., Automated exposure control, adjustment of the mA and/or kV according to patient size, use of iterative reconstruction technique) copyright 2011 [employer]- All Rights Reserved Chest X-Ray 07/24/18 00:00 IMPRESSION: Bilateral pleural effusions, right greater than left. Assessment and Plan - Diagnosis (1) Acute on chronic respiratory failure with hypoxemia Is this a current diagnosis for this admission?: Yes Plan: Secondary to CHF exacerbation with bilateral pleural effusions. Currently on BIPAP. (2) Acute exacerbation of CHF (congestive heart failure) Is this a current diagnosis for this admission?: Yes Plan: Recent echo shows and EF of 25%. Continue IV Lasix. Cardiology has also recommended central line placement for initiation of dobutamine infusion for her heart failure. (3) Pleural effusion Is this a current diagnosis for this admission?: Yes Plan: 07/26: Bilateral effusions likely related to acute congestive heart failure. Will consult radiology for thoracentesis of persistent bilateral effusions despite being on IV diuresis. Will switch Eliquis to heparin to drip. (4) Atrial fibrillation with RVR Is this a current diagnosis for this admission?: Yes Plan: 07/26: Currently rate-controlled. Will switch Eliquis to heparin to drip for anticipated thoracentesis. (5) Hypothyroidism Is this a current diagnosis for this admission?: Yes Plan: Restarted on synthroid. TSH has improved from 50 to 15. - Time Time Spent with patient: 25-34 minutes
--- NOTE | 2018-07-27 19:16 | RADIOLOGY REPORT (SQ) ---
EXAM DESCRIPTION: CHEST SINGLE VIEW COMPLETED DATE/TIME: 07/27/2018 7:03 pm REASON FOR STUDY: central placement COMPARISON: 07/24/2018 NUMBER OF VIEWS: One view. TECHNIQUE: Single frontal radiographic view of the chest acquired. LIMITATIONS: None. FINDINGS: Central venous access catheter placed via left IJ approach. Catheter tip at superior jose g a cava. No pneumothorax. Increased bilateral basilar airspace opacities and pleural effusions. IMPRESSION: Central venous access catheter placed via left IJ approach. Catheter tip at superior ve na cava. No pneumothorax. Increased bilateral basilar airspace opacities and pleural effusions. TECHNICAL DOCUMENTATION: JOB ID: [id number] [employer]- All Rights Reserved Reading location - IP/workstation name: [id number]
--- NOTE | 2018-07-27 19:40 | Operative Report ---
Nonrecallable Operative Report DATE OF SURGERY: 07/27/18 PREOPERATIVE DIAGNOSIS: 1. Phlebosclerosis. 2. Congestive heart failure. POSTOPERATIVE DIAGNOSIS: Same as above. OPERATION: 1. Ultrasound-guided central venous puncture. 2. Left internal jugular vein central line placement. SURGEON: HIRAM SAAVEDRA ANESTHESIA: Local TISSUE REMOVED OR ALTERED: None COMPLICATIONS: None apparent ESTIMATED BLOOD LOSS: Minimal PROCEDURE: Drains/implants: Left internal jugular vein central line at 14 cm. Procedure in detail: After informed consent was obtained, the patient was laid in the Trendelenburg position in the hospital room. The area of the left neck and chest were prepped and draped in a normal sterile fashion. An ultrasound was used to identify the left internal jugular vein. It was compressible with normal flow. Under direct ultrasonic guidance, the internal jugular vein was accessed with a needle. Dark, venous, nonpulsatile blood was returned in the syringe. The wire was then inserted into the vein easily. The catheter was slid over the wire using a modified Seldinger technique. Once the catheter was inserted, it was aspirated and flushed x3. This was done easily and returned dark, venous, nonpulsatile blood. The catheter was sutured to the skin. A dressing was placed, and the procedure was concluded. All sponge, instrument, and needle counts were correct. Condition: Fair.
[2018-07-27] MEDS: HEPARIN SOD (PORCINE) 1,000 UNIT/ML 10 ML VIAL IV PRN (20:22)
[2018-07-27] MEDS: DOBUTAMINE HCL/D5W 500 MG/250 ML RTUINJ IV PRN (20:44)
--- NOTE | 2018-07-27 21:36 | Progress Note ---
Provider Note Provider Note: Subjective: The patient still continues to be short of breath and has chronic orthopnea. There is no PND. There is only mild leg edema. There is no chest pain or discomfort. The patient's Eliquis has been stopped and the patient is going to be switched to heparin drip in anticipation of of right thoracentesis i n view of the increasing right pleural effusion. There is no TIA CVA symptoms. There is no bleeding on anticoagulation. PHYSICAL EXAMINATION: The patient is mildly obese. She is chronically ill. She is in no acute distress. Selected Entries 07/27/18 07:47 Temperature 97.3 F Temperature Axillary Source Pulse Rate 76 Respiratory 24 H Rate Blood Pressure 108/88 H Blood Pressure 94 Mean BP Location Left Arm BP Position Supine O2 Sat by Pulse 90 L Oximetry Oxygen Delivery Bipap Method Percent of 40 Oxygen HEAD: Atraumatic, normocephalic. EYES: Pupils equal round and reactive to light, extraocular movements intact, sclera anicteric, conjunctiva are normal. ENT: TMs normal, nares patent, oropharynx clear without exudates. Moist mucous membranes. NECK: Normal range of motion, supple without lymphadenopathy or JVD. Carotids are equal there is no bruits. There is no thyromegaly. There is no accessory muscles of respiration in use. Trachea central LUNGS: There is diminished air entry and prolonged expiration. There is occasional scattered rhonchi. There are no wet rales of CHF. There is diminished breath sounds in the bases with bilateral dry crackles. There is increasing callus on the right lower zone and right mid zone of the lung. On palpation there is no chest wall tenderness. HEART: S1-S2 is heard. S1 is of variable intensity. There is no S3 gallop. There is no S4 gallop. There is systolic murmur left sternal border and apex without radiation. There is no rub.. ABDOMEN: Soft, nontender, normoactive bowel sounds. There is no hepatosplenic megaly no guarding, no rebound. No masses appreciated. EXTREMITIES: Normal range of motion, no pitting or edema. No clubbing or cyanosis. Femorals are well felt. There is no femoral bruits. Leg pulses are well felt. There is no DVT or cellulitis. There is no calf tenderness NEUROLOGICAL: Cranial nerves II through XII grossly intact. Normal speech, normal gait. The patient is awake alert oriented x3 with no focal deficits. PSYCH: Normal mood, normal affect. The patient judgment and insight are intact SKIN: Warm, Dry, normal turgor, no rashes or lesions noted. There is no petechia or ecchymosis MPRESSION/RECOMMENDATION: 1. Paroxysmal atrial fibrillation. At present patient is in atrial flutter. We will continue the patient on Cardizem CD 180 mg p.o. every 12 hours, and increase as tolerated. Patient on IV heparin drip, in anticipation of thoracentesis. 2. Acute exacerbation of COPD: Improving continue respiratory treatments and oxygen. 3. Small bilateral pleural effusions. Most likely secondary to atrial fibrillation with rapid ventricular response causing heart failure on a patient with a history of diastolic dysfunction. Continue diuretics. 4. Cardiomyopathy with severely reduced LV ejection fraction. If the patient does not improve with current treatment including IV diuretics. Then will consider starting the patient on a dobutamine drip. Would recommend getting a central line to start the patient on dobutamine drip. 5. Diabetes mellitus type 2 [id number] 6. Hypothyroidism: Note thyroid stimulating hormones a very high, suggesting hypothyroidism. Would recommend increasing the patient's thyroid replacement. Will increase the patient's thyroxine to 125 mcg p.o. daily, and watch heart rate response to the patient's increased dose of levothyroxine. [Note in May the patient was admitted with iatrogenic hyper thyroidism.] 7. History of GERD: At present stable. Continue proton pump inhibitors. 8. History of depression: Continue antidepressants. 9. History of lymphoma: At present seems to be in remission 10. History of acute on chronic respiratory failure. At present blood gases show that the patient's PO2 and PCO2 within normal limits. Continue oxygen. Medications reviewed. Medications adjusted. Management plan discussed with attending physician. Medical decision making I was of high complexity, in view of the need to adjust medication doses. 40 minutes spent on this patient more than 50% of time spent in direct patient care. Will follow with you
[2018-07-27] MEDS: AZITHROMYCIN 500 MG in DEXTROSE 5%-WATER 250 ML IV SCH (21:55)
[2018-07-27] MEDS: MONTELUKAST SODIUM 10 MG TABLET PO SCH (21:56)
[2018-07-27] MEDS: ATORVASTATIN CALCIUM 80 MG TABLET PO SCH (21:56)
[2018-07-27] MEDS: MELATONIN 3 MG TABLET PO SCH (21:57)
[2018-07-28] MEDS: HEPARIN SODIUM,PORCINE/D5W 25,000 UNIT/250 ML RTUINJ IV PRN (02:27)
[2018-07-28] MEDS: CEFTRIAXONE 1 GM/D5W RTU 1 GM/50 ML RTUPB IV SCH (05:10)
[2018-07-28] MEDS: FUROSEMIDE INJ/PF 20 MG/2 ML SDV IV SCH ×3 (05:11→21:24)
[2018-07-28] MEDS: LEVOTHYROXINE SODIUM 0.05 MG TABLET PO SCH (05:11)
[2018-07-28] MEDS: LEVALBUTEROL HCL NEB 1.25 MG/3 ML AMPUL NEB PRN (08:53)
[2018-07-28] MEDS: BUDESONIDE NEB 0.5 MG/2 ML AMPUL NEB SCH ×2 (08:53→21:18)
[2018-07-28] MEDS: LACTOBACILLUS ACIDOPHILUS 250 MG TAB PO SCH (10:30)
[2018-07-28] MEDS: GUAIFENESIN 600 MG TABLET.SA PO SCH ×2 (10:30→21:30)
[2018-07-28] MEDS: FLUTICASONE/VILANTEROL 100-25 MCG/DOSE IH SCH (10:30)
[2018-07-28] MEDS: MULTIVITAMIN TABLET PO SCH (10:31)
[2018-07-28] MEDS: ESCITALOPRAM OXALATE 10 MG TABLET PO SCH (10:31)
[2018-07-28] MEDS: DULOXETINE HCL 30 MG CAPSULE.DR PO SCH (10:32)
[2018-07-28] MEDS: MAGNESIUM OXIDE 400 MG TABLET PO SCH ×2 (10:32→17:47)
[2018-07-28] MEDS: BUSPIRONE HCL 10 MG TABLET PO SCH ×2 (10:32→21:30)
[2018-07-28] MEDS: METHYLPREDNISOLONE INJ 125 MG/2 ML SDV IV SCH (10:33)
[2018-07-28] MEDS: FAMOTIDINE 20 MG TABLET PO SCH ×2 (10:33→21:31)
[2018-07-28] MEDS: LISINOPRIL 5 MG TABLET PO SCH ×2 (10:34→21:24)
[2018-07-28] MEDS: NICOTINE 21 MG/24 HR PATCH.TD24 TD SCH (10:34)
[2018-07-28] MEDS: DIGOXIN INJ 0.5 MG/2 ML AMPULE IV SCH (10:35)
[2018-07-28] MEDS: METOPROLOL TARTRATE 25 MG TABLET PO SCH ×2 (10:35→21:24)
[2018-07-28] MEDS: DOCUSATE SODIUM 100 MG CAPSULE PO SCH ×2 (10:35→21:24)
[2018-07-28] MEDS: POTASSIUM CHLORIDE 20 MEQ/15 ML UDCUP PO SCH (10:35)
[2018-07-28] MEDS ORDERED: LIDOCAINE 1% INJ-PF (10 MG/ML) 30 ML SDV ONE (16:58)
--- NOTE | 2018-07-28 17:00 | RADIOLOGY REPORT (SQ) ---
EXAM DESCRIPTION: CHEST SINGLE VIEW COMPLETED DATE/TIME: 07/28/2018 4:46 pm REASON FOR STUDY: Confirm s/p Thoracentesis Evaluate for pneumothorax COMPARISON: None. EXAM PARAMETERS: NUMBER OF VIEWS: One view. TECHNIQUE: Single frontal radiographic view of the chest acquired. RADIATION DOSE: NA LIMITATIONS: None. FINDINGS: LUNGS AND PLEURA: Large right pneumothorax, about 50%. There is partial collapse of the r ight lung. Residual pleural fluid along the right lateral costophrenic sulcus is present. This report was called to from surgery at 1645 hours. He will put a large bore chest tube in the right chest shortly. Report also called to Dr. Stewart. There is patchy airspace disease at the left lung base with trace left pleural fluid. MEDIASTINUM AND HILAR STRUCTURES: No masses. Contour normal. HEART AND VASCULAR STRUCTURES: Stable cardiomegaly BONES: No acute findings. HARDWARE: Left jugular central line tip superior vena cava. Surgical clips at the GE junction OTHER: No other significant finding. IMPRESSION: About 50% right pneumothorax post unsuccessful thoracentesis attempt. Report was called to the hospitalist surgeon who will place a large bore right chest tube shortly. TECHNICAL DOCUMENTATION: JOB ID: [id number] [employer]- All Rights Reserved Reading location - IP/workstation name: [email or web address]
--- NOTE | 2018-07-28 17:04 | RADIOLOGY REPORT (SQ) ---
EXAM DESCRIPTION: U/S CHEST COMPLETED DATE/TIME: 07/28/2018 4:47 pm REASON FOR STUDY: bilateral pl eff R>L COMPARISON: CT chest 07/21/2018 LIMITATIONS: None. PROCEDURE: Procedure, risks, benefit, and alternative explained to patient who then gave written con sent. Procedure was performed portably on 3 South, patient on BiPAP. The right chest wall was marke d using ultrasound guidance. A time-out was called for correct marking verification. Chest prepped a nd draped using sterile technique. Local anesthesia achieved using 6 ml of 1% lidocaine injection. A 6fr Safe-T- Centesis set was introduced into the right pleural space. No fluid was aspirated. The catheter was removed and the entry site was covered with sterile bandage. Ultrasound immediately po st thoracentesis attempt demonstrated air in the pleural space. Post procedure chest x-ray, dictated separately, demonstrated about 50% pneumothorax on the right. T his report was called to Dr. Goodman, the hospitalist surgeon, at 1645 hours 07/28/2018. He will place a large bore right chest tube shortly. Images acquired during the procedure were stored on PACS. FINDINGS: ENTRY SITE: Right chest posterior axillary line FLUID VOLUME: Unable to obtain FLUID ANALYSIS: Unable to obtain fluid OTHER: Post procedure pneumothorax IMPRESSION: Unsuccessful portable thoracentesis under ultrasound guidance. We were unable to obtain fluid from the right pleural space. Patient developed an immediate large pneumothorax. Hospital corrales rgeon notified, chest tube to be placed shortly. COMMENT: Patient medication list reviewed: Yes- Quality ID# [id number]:Eligible professional attests to doc umenting in the medical record they obtained, updated, or reviewed the patient's current medications. Findings discussed with Dr Stewart and Dr Goodman TECHNICAL DOCUMENTATION: JOB ID: [id number] [employer]- All Rights Reserved Reading location - IP/workstation name: [email or web address]
--- NOTE | 2018-07-28 17:20 | PDOC PROGRESS REPORT ---
Subjective Progress Note for:: 07/28/18 Subjective:: This is a 73 yr old female with a PMH of atrial fibrillation, congestive heart failure, hypertension, COPD on 2 L oxygen, CPAP at night, and depression who presented with increasing SOB. She was also found to be in AFib with RVR and also treated for CHF congestion. 07/26: Chest x-ray shows bilateral pleural effusions. Per RN, she has been BIPAP- dependent for the past 2 days. She does desaturate to 80% off BIPAP. She reports of SOB and says she feels better with the BIPAP. She is currently in AFib, rate- controlled in the 80s. Will consult radiology for thoracentesis of persistent bilateral effusions despite being on IV diuresis. Will switch Eliquis to heparin drip. 07/27: Patient continues to be on BIPAP. She desaturated to 70% when she was repositioned and laid down for a bath. She quickly recovered to the high 90s after placing her in upright position and increasing FiO2 from 40 to 70%. She says her SOB has remained stable on the BIPAP. Denies chest pain. Anticipating thoracentesis tomorrow. Cardiology has also recommended central line placement for initiation of dobutamine infusion for her heart failure. 07/28: Patient had central line placed last night and was started on dobutamine drip by cardio. Bedside thoracentesis attempted by radiology. Unfortunately, patient sustained a large right sided pneumothorax. She is saturating well on BIPAP and says her SOB is about the same and has not worsened. Surgery is on the way to put in a chest tube. Reason For Visit: ATRIAL FLUTTER Physical Exam Vital Signs: Temp Pulse Resp BP Pulse Ox 97.4 F 63 17 118/68 99 07/28/18 12:00 07/28/18 14:00 07/28/18 12:00 07/28/18 14:00 07/28/18 12:00 Intake & Output 07/27/18 07/28/18 07/29/18 06:59 06:59 06:59 Intake Total 435 704 368 Output Total 2150 575 300 Balance -1715 129 68 Weight 186 lb 8.177 oz 186 lb 15.232 oz General appearance: PRESENT: no acute distress, well-developed, well-nourished Head exam: PRESENT: atraumatic, normocephalic Eye exam: PRESENT: conjunctiva pink, EOMI, PERRLA. ABSENT: scleral icterus Ear exam: PRESENT: normal external ear exam Mouth exam: PRESENT: moist, tongue midline Neck exam: ABSENT: carotid bruit, JVD, lymphadenopathy, thyromegaly Respiratory exam: PRESENT: decreased breath sounds, rhonchi. ABSENT: rales, wheezes Cardiovascular exam: PRESENT: RRR. ABSENT: diastolic murmur, rubs, systolic murmur Pulses: PRESENT: normal dorsalis pedis pul Vascular exam: PRESENT: normal capillary refill GI/Abdominal exam: PRESENT: normal bowel sounds, soft. ABSENT: distended, guarding, mass, organolmegaly, rebound, tenderness Rectal exam: PRESENT: deferred Neurological exam: PRESENT: alert, awake, oriented to person, oriented to place, oriented to time, oriented to situation, CN II-XII grossly intact. ABSENT: motor sensory deficit Results Laboratory Results: 07/26/18 11:26 07/26/18 05:49 07/21/18 07/21/18 07/21/18 12:20 13:25 13:25 Creatine Kinase 67 63 CK-MB (CK-2) 1.99 Troponin I 0.094 NT-Pro-B Natriuret Pep 6620 H 07/21/18 07/21/18 07/22/18 19:05 19:05 01:00 Creatine Kinase 56 55 CK-MB (CK-2) Troponin I 0.094 NT-Pro-B Natriuret Pep 07/22/18 07/22/18 07/22/18 01:00 07:07 07:07 Creatine Kinase 53 CK-MB (CK-2) Troponin I 0.095 0.091 NT-Pro-B Natriuret Pep 07/22/18 07/23/18 07/23/18 07:07 23:52 23:52 Creatine Kinase 56 CK-MB (CK-2) 2.39 Troponin I 0.101 NT-Pro-B Natriuret Pep 6520 H 07/23/18 07/24/18 07/24/18 23:52 06:31 06:31 Creatine Kinase 93 CK-MB (CK-2) 2.89 Troponin I 0.115 NT-Pro-B Natriuret Pep 7130 H 07/24/18 07/24/18 07/24/18 11:47 11:47 18:27 Creatine Kinase 90 CK-MB (CK-2) 2.72 2.64 Troponin I 0.079 0.080 NT-Pro-B Natriuret Pep 07/24/18 07/24/18 07/25/18 18:27 18:44 00:35 Creatine Kinase Cancelled 105 CK-MB (CK-2) 2.59 Troponin I 0.071 NT-Pro-B Natriuret Pep 07/25/18 07/26/18 05:45 05:49 Creatine Kinase CK-MB (CK-2) Troponin I NT-Pro-B Natriuret Pep 8460 H [id number] H Impressions: Chest CT 07/21/18 12:31 IMPRESSION: 1. Bilateral pleural effusions with mild compressive atelectasis in the lower lobes. 2. Cardiomegaly. Minimal pericardial effusion. 3. Possible 3 cm left renal mass. Head CT 07/23/18 23:42 IMPRESSION: Mild atrophy and small vessel ischemic change TECHNICAL DOCUMENTATION: Quality ID # 436: Final reports with documentation of one or more dose reduction techniques (e.g., Automated exposure control, adjustment of the mA and/or kV according to patient size, use of iterative reconstruction technique) copyright 2011 [employer]- All Rights Reserved Chest X-Ray 07/28/18 00:00 IMPRESSION: About 50% right pneumothorax post unsuccessful thoracentesis attempt. Report was called to the hospitalist surgeon who will place a large bore right chest tube shortly. Chest Ultrasound 07/28/18 10:58 IMPRESSION: Unsuccessful portable thoracentesis under ultrasound guidance. We were unable to obtain fluid from the right pleural space. Patient developed an immediate large pneumothorax. Hospital surgeon notified, chest tube to be placed shortly. Assessment and Plan - Diagnosis (1) Acute on chronic respiratory failure with hypoxemia Is this a current diagnosis for this admission?: Yes Plan: Secondary to CHF exacerbation with bilateral pleural effusions. Currently on BIPAP. (2) Pneumothorax, right Is this a current diagnosis for this admission?: Yes Plan: Patient sustained a large right sided pneumothorax during attempt for thoracentesis. Surgery will be placing in a chest tube soon. (3) Acute exacerbation of CHF (congestive heart failure) Is this a current diagnosis for this admission?: Yes Plan: Recent echo shows and EF of 25%. Continue IV Lasix. 07/28: Started on dobutamine drip last night. (4) Pleural effusion Is this a current diagnosis for this admission?: Yes Plan: 07/26: Bilateral effusions likely related to acute congestive heart failure. Will consult radiology for thoracentesis of persistent bilateral effusions despite being on IV diuresis. Will switch Eliquis to heparin to drip. 07/28: Thoracentesis was unsuccessful. Patient sustained pneumothorax during attempt. (5) Atrial fibrillation with RVR Is this a current diagnosis for this admission?: Yes Plan: 07/26: Currently rate-controlled. Will switch Eliquis to heparin to drip for anticipated thoracentesis. (6) Hypothyroidism Is this a current diagnosis for this admission?: Yes Plan: On synthroid. TSH has improved from 50 to 15. - Time Time Spent with patient: 25-34 minutes
--- NOTE | 2018-07-28 17:42 | PDOC CONSULTATION ---
History of Present Illness Admission Date/PCP: 07/21/18 15:10 WENDY DAVILA MD Patient complains of: Pneumothorax after thoracentesis. History of Present Illness: RADHA LAGUERRE is a 73 year old female who had an attempted right-sided thoracentesis resulting in a pneumothorax with some shortness of breath. Now for emergency chest tube placement. Past Medical History Cardiac Medical History: Reports: Atrial Fibrillation, Congestive Heart Failure - Diastolic, Hypertension, Heart Murmur Pulmonary Medical History: Reports: Chronic Obstructive Pulmonary Disease (COPD), Pneumonia, Sleep Apnea Neurological Medical History: Denies: Seizures Endocrine Medical History: Reports: Diabetes Mellitus Type 2, Hypothyroidism Denies: Diabetes Mellitus Type 1, Hyperthyroidism Malignancy Medical History: Reports: Lymphoma GI Medical History: Reports: Gastroesophageal Reflux Disease Denies: Cirrhosis, Hepatitis Musculoskeltal Medical History: Denies: Fibromyalgia, Gout Skin Medical History: Denies: Eczema, Psoriasis Psychiatric Medical History: Reports: Depression Hematology: Denies: Anemia, Bleeding Tendencies Past Surgical History Past Surgical History: Reports: Cholecystectomy, Gastric Bypass Surgery, Tonsillectomy, Other - panniiculectomy Social History Smoking Status: Former Smoker Frequency of Alcohol Use: None Hx Recreational Drug Use: No Drugs: None Hx Prescription Drug Abuse: No - Advance Directive Resuscitation Status: Full Code Family History Family History: Reviewed & Not Pertinent, COPD Parental Family History Reviewed: No Children Family History Reviewed: No Sibling(s) Family History Reviewed.: No Medication/Allergy Home Medications: Apixaban [Eliquis 2.5 mg Tablet] 2.5 mg PO BID 07/21/18 Atorvastatin Calcium [Lipitor 80 mg Tablet] 80 mg PO QHS 07/21/18 Buspirone HCl [Buspar 15 mg Tablet] 15 mg PO BID 07/21/18 Diltiazem HCl [Cardizem Cd 240 mg Capsule.cr] 240 mg PO DAILY 07/21/18 Docusate Sodium [Colace 100 mg Capsule] 100 mg PO BID 07/21/18 Duloxetine HCl [Cymbalta] 30 mg PO DAILY 07/21/18 Escitalopram Oxalate [Lexapro] 20 mg PO DAILY 07/21/18 Fluticasone/Vilanterol [Breo 100-25 Mcg Ellipta 14 Dose/Dpi] 1 puff IH DAILY 07/21/18 Furosemide [Lasix 20 mg Tablet] 20 mg PO DAILY 07/21/18 L.acidoph,Paracasei, B.lactis [Probiotic] 1 cap PO DAILY 07/21/18 Levothyroxine Sodium [Synthroid 0.1 mg Tablet] 0.1 mg PO Q6AM 07/21/18 Melatonin [Melatonin 3 mg Tablet] 6 mg PO QHS 07/21/18 Montelukast Sodium [Singulair 10 mg Tablet] 10 mg PO QPM 07/21/18 Multivitamin [One-A-Day Essential] 1 tab PO DAILY 07/21/18 Ondansetron HCl [Zofran 4 mg Tablet] 4 mg PO QIDP PRN 07/21/18 Oxycodone Myristate [Xtampza ER] 13.5 mg PO Q12 07/21/18 Pantoprazole Sodium [Protonix [address] Tablet] 40 mg PO QAM 07/21/18 Sennosides [Senna Laxative] 8.6 mg PO DAILYP PRN 07/21/18 Suvorexant [Belsomra] 5 mg PO QHS 07/21/18 Allergies/Adverse Reactions: codeine [Codeine] Allergy (Verified 07/05/18 16:18) haloperidol [From Haldol] Allergy (Verified 07/05/18 16:18) Change in behavior Sulfa (Sulfonamide Antibiotics) Allergy (Verified 07/05/18 16:18) rash; itching zolpidem tartrate [From Ambien] Adverse Reaction (Verified 07/05/18 16:18) sleep walk Physical Exam Vital Signs: Temp Pulse Resp BP Pulse Ox 97.4 F 63 18 118/68 96 07/28/18 12:00 07/28/18 14:00 07/28/18 17:00 07/28/18 14:00 07/28/18 17:00 Intake & Output 07/27/18 07/28/18 07/29/18 06:59 06:59 06:59 Intake Total 435 704 368 Output Total 2150 575 300 Balance -1715 129 68 Weight 84.6 kg 84.8 kg General appearance: PRESENT: no acute distress, cooperative, other - Patient with CPAP. Neck exam: PRESENT: other - Trachea midline. Respiratory exam: PRESENT: other - Decreased breath sounds on the right. No crepitus. Cardiovascular exam: PRESENT: RRR GI/Abdominal exam: PRESENT: other - Soft, nondistended, nontender to palpation. Results Laboratory Results: 07/26/18 11:26 07/26/18 05:49 07/21/18 07/21/18 07/21/18 12:20 13:25 13:25 Creatine Kinase 67 63 CK-MB (CK-2) 1.99 Troponin I 0.094 NT-Pro-B Natriuret Pep 6620 H 07/21/18 07/21/18 07/22/18 19:05 19:05 01:00 Creatine Kinase 56 55 CK-MB (CK-2) Troponin I 0.094 NT-Pro-B Natriuret Pep 07/22/18 07/22/18 07/22/18 01:00 07:07 07:07 Creatine Kinase 53 CK-MB (CK-2) Troponin I 0.095 0.091 NT-Pro-B Natriuret Pep 07/22/18 07/23/18 07/23/18 07:07 23:52 23:52 Creatine Kinase 56 CK-MB (CK-2) 2.39 Troponin I 0.101 NT-Pro-B Natriuret Pep 6520 H 07/23/18 07/24/18 07/24/18 23:52 06:31 06:31 Creatine Kinase 93 CK-MB (CK-2) 2.89 Troponin I 0.115 NT-Pro-B Natriuret Pep 7130 H 07/24/18 07/24/18 07/24/18 11:47 11:47 18:27 Creatine Kinase 90 CK-MB (CK-2) 2.72 2.64 Troponin I 0.079 0.080 NT-Pro-B Natriuret Pep 07/24/18 07/24/18 07/25/18 18:27 18:44 00:35 Creatine Kinase Cancelled 105 CK-MB (CK-2) 2.59 Troponin I 0.071 NT-Pro-B Natriuret Pep 07/25/18 07/26/18 05:45 05:49 Creatine Kinase CK-MB (CK-2) Troponin I NT-Pro-B Natriuret Pep 8460 H 17856 H Impressions: Chest CT 07/21/18 12:31 IMPRESSION: 1. Bilateral pleural effusions with mild compressive atelectasis in the lower lobes. 2. Cardiomegaly. Minimal pericardial effusion. 3. Possible 3 cm left renal mass. Head CT 07/23/18 23:42 IMPRESSION: Mild atrophy and small vessel ischemic change TECHNICAL DOCUMENTATION: Quality ID # 436: Final reports with documentation of one or more dose reduction techniques (e.g., Automated exposure control, adjustment of the mA and/or kV according to patient size, use of iterative reconstruction technique) copyright 2011 [employer]- All Rights Reserved Chest X-Ray 07/28/18 00:00 IMPRESSION: About 50% right pneumothorax post unsuccessful thoracentesis attempt. Report was called to the hospitalist surgeon who will place a large b ore right chest tube shortly. Chest Ultrasound 07/28/18 10:58 IMPRESSION: Unsuccessful portable thoracentesis under ultrasound guidance. We were unable to obtain fluid from the right pleural space. Patient developed an immediate large pneumothorax. Hospital surgeon notified, chest tube to be placed shortly. Assessment & Plan - Diagnosis (1) Pneumothorax on right Is this a current diagnosis for this admission?: Yes Plan: Right pneumothorax status post attempted thoracentesis. Will place chest tube. I have discussed with the patient the risk and benefits of the procedure including risk of bleeding, infection, lung injury, adjacent structure injury. Patient understands and agrees to proceed.
--- NOTE | 2018-07-28 17:45 | Operative Report ---
Operative Report DATE OF SURGERY: 07/28/18 PREOPERATIVE DIAGNOSIS: Right-sided pneumothorax POSTOPERATIVE DIAGNOSIS: Right-sided pneumothorax OPERATION: Right tube thoracostomy SURGEON: KARLEY ALLEN ANESTHESIA: Local TISSUE REMOVED OR ALTERED: None COMPLICATIONS: None ESTIMATED BLOOD LOSS: Minimal INTRAOPERATIVE FINDINGS: Right-sided pneumothorax PROCEDURE: Informed consent was obtained. Procedure was done at the patient's bedside. Patient's right lateral chest was prepped and draped in usual sterile fashion. Local anesthetic was administered. Incision was made at the anterior axillary line near the mammary crease. A tunnel was then created entering the pleural cavity without difficulty with drainage of air and yellow fluid. 28 [place] chest tube was inserted without difficulty. It was sutured in place. It was attached to the Pleur-evac demonstrating initial air leaks. About 100 cc of pleural fluid was spilled on the drapes during the procedure. Patient tolerated procedure well with no apparent complications. Dressings were applied. Stat portable chest x-ray was ordered.
--- NOTE | 2018-07-28 18:04 | RADIOLOGY REPORT (SQ) ---
EXAM DESCRIPTION: CHEST SINGLE VIEW COMPLETED DATE/TIME: 07/28/2018 5:53 pm REASON FOR STUDY: chest tube COMPARISON: 07/28/2018 1642 hours EXAM PARAMETERS: NUMBER OF VIEWS: One view. TECHNIQUE: Single frontal radiographic view of the chest acquired. RADIATION DOSE: NA LIMITATIONS: None. FINDINGS: LUNGS AND PLEURA: Interval placement of a larger caliber right chest tube. Resolution of the pneumothorax. Persistent bibasilar opacities. Possible small effusions. MEDIASTINUM AND HILAR STRUCTURES: No masses. Contour normal. HEART AND VASCULAR STRUCTURES: Heart enlarged with vascular congestion. BONES: No acute findings. HARDWARE: Venous access catheter unchanged. OTHER: No other significant finding. IMPRESSION: Interval insertion of a large caliber right chest tube with resolution of the right pneu mothorax. Persistent vascular congestion. Persistent basilar opacities and small effusions. TECHNICAL DOCUMENTATION: JOB ID: [id number] [employer]- All Rights Reserved Reading location - IP/workstation name: [email or web address]
[2018-07-28] MEDS ORDERED: ACETAMINOPHEN 325 MG TABLET PO PRN (20:39)
--- NOTE | 2018-07-28 21:26 | Progress Note ---
Provider Note Provider Note: CARDIOLOGY PROGRESS NOTE by Dr. Kristen Davis on 07/28/2018. SUBJECTIVE: The patient continues to be in atrial flutter. She states that shortness of breath is slightly improved. She does have a significant right pleural effusion. But this seems to be decreasing. There is no chest pain or discomfort. She has chronic orthopnea. There is no bleeding on IV heparin. She has no significant leg edema, there being trace to mild edema only. There is no TIA CVA symptoms. PHYSICAL EXAMINATION: The patient appears to be chronically ill. She is mildly obese. In no major distress. Selected Entries 07/26/18 11:01 Temperature 97.7 F Temperature Axillary Source Pulse Rate 117 H Respiratory 19 Rate Blood Pressure 103/75 Blood Pressure 84 Mean BP Location Right Wrist BP Position Sitting O2 Sat by Pulse 90 L Oximetry Oxygen Delivery Bipap Method HEAD: Atraumatic, normocephalic. EYES: Pupils equal round and reactive to light, extraocular movements intact, sclera anicteric, conjunctiva are normal. ENT: TMs normal, nares patent, oropharynx clear without exudates. Moist mucous membranes. NECK: Normal range of motion, supple without lymphadenopathy or JVD. Carotids are equal there is no bruits. There is no thyromegaly. There is no accessory muscles of respiration in use. Trachea central LUNGS: There is diminished air entry and prolonged expiration. There is occasional scattered rhonchi. There are no wet rales of CHF. There is diminished breath sounds in the bases with bilateral dry crackles. On palpation there is no chest wall tenderness. HEART: S1-S2 is heard. S1 is of variable intensity. There is no S3 gallop. There is no S4 gallop. There is systolic murmur left sternal border and apex without radiation. There is no rub.. ABDOMEN: Soft, nontender, normoactive bowel sounds. There is no hepatosplenic megaly no guarding, no rebound. No masses appreciated. EXTREMITIES: Normal range of motion, no pitting or edema. No clubbing or cyanosis. Femorals are well felt. There is no femoral bruits. Leg pulses are well felt. There is no DVT or cellulitis. There is no calf tenderness NEUROLOGICAL: Cranial nerves II through XII grossly intact. Normal speech, normal gait. The patient is awake alert oriented x3 with no focal deficits. PSY CH: Normal mood, normal affect. The patient judgment and insight are intact SKIN: Warm, Dry, normal turgor, no rashes or lesions noted. There is no petechia or ecchymosis IMPRESSION/RECOMMENDATION: 1. Paroxysmal atrial fibrillation. At present patient is in atrial flutter. We will continue the patient on Cardizem CD 2. Acute exacerbation of COPD: Improving continue respiratory treatments and oxygen. 3. Small bilateral pleural effusions. Most likely secondary to atrial fibrillation with rapid ventricular response causing heart failure on a patient with a history of diastolic dysfunction. Continue diuretics. 4. Cardiomyopathy with severely reduced LV ejection fraction. If the patient does not improve with current treatment including IV diuretics. Then will consider starting the patient on a dobutamine drip. 5. Diabetes mellitus type 2 [id number] 6. Hypothyroidism: Note thyroid stimulating hormones a very high, suggesting hypothyroidism. Would recommend increasing the patient's thyroid replacement. Will increase the patient's thyroxine to 125 mcg p.o. daily, and watch heart rate response to the patient's increased dose of levothyroxine. [Note in May the patient was admitted with iatrogenic hyper thyroidism.] 7. History of GERD: At present stable. Continue proton pump inhibitors. 8. History of depression: Continue antidepressants. 9. History of lymphoma: At present seems to be in remission 10. History of acute on chronic respiratory failure. At present blood gases show that the patient's PO2 and PCO2 within normal limits. Continue oxygen. Medications reviewed. Medications adjusted. Management plan discussed with attending physician. Medical decision making I was of high complexity, in view of the need to adjust medication doses. 40 minutes spent on this patient more than 50% of time spent in direct patient care. Will follow with you
[2018-07-28] MEDS: AZITHROMYCIN 500 MG in DEXTROSE 5%-WATER 250 ML IV SCH (21:29)
[2018-07-28] MEDS: MELATONIN 3 MG TABLET PO SCH (21:31)
[2018-07-28] MEDS: MONTELUKAST SODIUM 10 MG TABLET PO SCH (21:31)
[2018-07-28] MEDS: ATORVASTATIN CALCIUM 80 MG TABLET PO SCH (21:31)
[2018-07-29] MEDS: FUROSEMIDE INJ/PF 20 MG/2 ML SDV IV SCH ×3 (05:10→22:06)
[2018-07-29] MEDS: CEFTRIAXONE 1 GM/D5W RTU 1 GM/50 ML RTUPB IV SCH (05:10)
[2018-07-29] MEDS: LEVOTHYROXINE SODIUM 0.05 MG TABLET PO SCH (05:10)
[2018-07-29] MEDS ORDERED: MORPHINE SULFATE 10 MG/ML INJ IV PRN (08:25)
[2018-07-29] MEDS: BUDESONIDE NEB 0.5 MG/2 ML AMPUL NEB SCH ×2 (08:38→20:40)
[2018-07-29] MEDS: HEPARIN SOD (PORCINE) 1,000 UNIT/ML 10 ML VIAL IV PRN (08:46)
[2018-07-29] MEDS: HEPARIN SODIUM,PORCINE/D5W 25,000 UNIT/250 ML RTUINJ IV PRN (08:47)
[2018-07-29] MEDS ORDERED: KETOROLAC TROMETHAMINE INJ/PF 30 MG/1 ML SDV IV ONE (10:09)
[2018-07-29] MEDS: METOPROLOL TARTRATE 25 MG TABLET PO SCH ×2 (10:16→22:06)
[2018-07-29] MEDS: METHYLPREDNISOLONE INJ 125 MG/2 ML SDV IV SCH (10:21)
[2018-07-29] MEDS: BUSPIRONE HCL 10 MG TABLET PO SCH ×2 (10:22→22:07)
[2018-07-29] MEDS: DOCUSATE SODIUM 100 MG CAPSULE PO SCH ×2 (10:22→22:08)
[2018-07-29] MEDS: MULTIVITAMIN TABLET PO SCH (10:22)
[2018-07-29] MEDS: POTASSIUM CHLORIDE 20 MEQ/15 ML UDCUP PO SCH (10:22)
[2018-07-29] MEDS: ESCITALOPRAM OXALATE 10 MG TABLET PO SCH (10:22)
[2018-07-29] MEDS: MAGNESIUM OXIDE 400 MG TABLET PO SCH ×2 (10:22→18:39)
[2018-07-29] MEDS: LACTOBACILLUS ACIDOPHILUS 250 MG TAB PO SCH (10:30)
[2018-07-29] MEDS: FLUTICASONE/VILANTEROL 100-25 MCG/DOSE IH SCH (10:30)
[2018-07-29] MEDS: DULOXETINE HCL 30 MG CAPSULE.DR PO SCH (10:30)
[2018-07-29] MEDS: NICOTINE 21 MG/24 HR PATCH.TD24 TD SCH (10:31)
[2018-07-29] MEDS: GUAIFENESIN 600 MG TABLET.SA PO SCH ×2 (10:31→22:07)
[2018-07-29] MEDS: LISINOPRIL 5 MG TABLET PO SCH ×2 (10:52→22:06)
--- NOTE | 2018-07-29 10:52 | RADIOLOGY REPORT (SQ) ---
EXAM DESCRIPTION: CHEST SINGLE VIEW COMPLETED DATE/TIME: 07/29/2018 10:41 am REASON FOR STUDY: reassess pneumothorax COMPARISON: 07/28/2018 EXAM PARAMETERS: NUMBER OF VIEWS: One view. TECHNIQUE: Single frontal radiographic view of the chest acquired. RADIATION DOSE: NA LIMITATIONS: None. FINDINGS: There is a minimal right-sided pneumothorax, slightly decreased compared to prior examinat ion with right-sided chest tube in position. There is significantly improved aeration of the bilater al lung bases. Unchanged cardiomegaly. IMPRESSION: There is a minimal right-sided pneumothorax, slightly decreased compared to prior examin ation with right-sided chest tube in position. There is significantly improved aeration of the bilat eral lung bases. Unchanged cardiomegaly. TECHNICAL DOCUMENTATION: JOB ID: [id number] [employer]- All Rights Reserved Reading location - IP/workstation name: [email or web address]
[2018-07-29] MEDS: FAMOTIDINE 20 MG TABLET PO SCH ×2 (10:55→22:07)
[2018-07-29] MEDS: DIGOXIN INJ 0.5 MG/2 ML AMPULE IV SCH (10:58)
[2018-07-29] MEDS ORDERED: LIDOCAINE 5% (700 MG) TRANSDERMAL ADH..PATCH TP ONE (11:00)
[2018-07-29] MEDS: DOBUTAMINE HCL/D5W 500 MG/250 ML RTUINJ IV PRN (11:06)
--- NOTE | 2018-07-29 11:27 | PDOC PROGRESS REPORT ---
Subjective Progress Note for:: 07/29/18 Subjective:: FEELS OK NO SOB Reason For Visit: ATRIAL FLUTER RIGHT PNEUMOTHORAX Physical Exam Vital Signs: Temp Pulse Resp BP Pulse Ox 97.5 F 99 16 115/70 98 07/29/18 03:12 07/29/18 08:40 07/29/18 08:40 07/29/18 06:00 07/29/18 08:40 Intake & Output 07/28/18 07/29/18 07/30/18 06:59 06:59 06:59 Intake Total 704 865 0 Output Total 575 925 Balance 129 -60 0 Weight 84.8 kg 87.4 kg 87.4 kg General appearance: PRESENT: no acute distress Head exam: PRESENT: normocephalic Eye exam: PRESENT: EOMI Neck exam: PRESENT: full ROM Respiratory exam: PRESENT: clear to auscultation glory Cardiovascular exam: PRESENT: RRR Pulses: PRESENT: normal radial pulses, normal femoral pulses GI/Abdominal exam: PRESENT: soft Rectal exam: PRESENT: deferred Extremities exam: PRESENT: full ROM Neurological exam: PRESENT: alert, awake, oriented to person Skin exam: PRESENT: dry Results Laboratory Results: 07/26/18 11:26 07/26/18 05:49 07/21/18 07/21/18 07/21/18 12:20 13:25 13:25 Creatine Kinase 67 63 CK-MB (CK-2) 1.99 Troponin I 0.094 NT-Pro-B Natriuret Pep 6620 H 07/21/18 07/21/18 07/22/18 19:05 19:05 01:00 Creatine Kinase 56 55 CK-MB (CK-2) Troponin I 0.094 NT-Pro-B Natriuret Pep 07/22/18 07/22/18 07/22/18 01:00 07:07 07:07 Creatine Kinase 53 CK-MB (CK-2) Troponin I 0.095 0.091 NT-Pro-B Natriuret Pep 07/22/18 07/23/18 07/23/18 07:07 23:52 23:52 Creatine Kinase 56 CK-MB (CK-2) 2.39 Troponin I 0.101 NT-Pro-B Natriuret Pep 6520 H 07/23/18 07/24/18 07/24/18 23:52 06:31 06:31 Creatine Kinase 93 CK-MB (CK-2) 2.89 Troponin I 0.115 NT-Pro-B Natriuret Pep 7130 H 07/24/18 07/24/18 07/24/18 11:47 11:47 18:27 Creatine Kinase 90 CK-MB (CK-2) 2.72 2.64 Troponin I 0.079 0.080 NT-Pro-B Natriuret Pep 07/24/18 07/24/18 07/25/18 18:27 18:44 00:35 Creatine Kinase Cancelled 105 CK-MB (CK-2) 2.59 Troponin I 0.071 NT-Pro-B Natriuret Pep 07/25/18 07/26/18 05:45 05:49 Creatine Kinase CK-MB (CK-2) Troponin I NT-Pro-B Natriuret Pep 8460 H 96173 H Impressions: Chest CT 07/21/18 12:31 IMPRESSION: 1. Bilateral pleural effusions with mild compressive atelectasis in the lower lobes. 2. Cardiomegaly. Minimal pericardial effusion. 3. Possible 3 cm left renal mass. Head CT 07/23/18 23:42 IMPRESSION: Mild atrophy and small vessel ischemic change TECHNICAL DOCUMENTATION: Quality ID # 436: Final reports with documentation of one or more dose reduction techniques (e.g., Automated exposure control, adjustment of the mA and/or kV according to patient size, use of iterative reconstruction technique) copyright 2011 [employer]- All Rights Reserved Chest Ultrasound 07/28/18 10:58 IMPRESSION: Unsuccessful portable thoracentesis under ultrasound guidance. We were unable to obtain fluid from the right pleural space. Patient developed an immediate large pneumothorax. Hospital surgeon notified, chest tube to be placed shortly. Chest X-Ray 07/29/18 00:00 IMPRESSION: There is a minimal right-sided pneumothorax, slightly decreased compared to prior examination with right-sided chest tube in position. There is significantly improved aeration of the bilateral lung bases. Unchanged cardiomegaly. Assessment & Plan - Plan Summary Plan Summary: PT WITH RT SIDED PTX AFTER ATTEMPTED THOROCESNTESIS NOW WITH CHEST TUBE CXR THIS AM WITH VERY SMALL APICAL TX RESIDUAL TINY AIR LEAK ON SUCTION WILL CONT SUCTION TILL AM
--- NOTE | 2018-07-29 16:46 | PDOC PROGRESS REPORT ---
Subjective Progress Note for:: 07/29/18 Subjective:: This is a 73 yr old female with a PMH of atrial fibrillation, congestive heart failure, hypertension, COPD on 2 L oxygen, CPAP at night, and depression who presented with increasing SOB. She was also found to be in AFib with RVR and also treated for CHF congestion. 07/26: Chest x-ray shows bilateral pleural effusions. Per RN, she has been BIPAP- dependent for the past 2 days. She does desaturate to 80% off BIPAP. She reports of SOB and says she feels better with the BIPAP. She is currently in AFib, rate- controlled in the 80s. Will consult radiology for thoracentesis of persistent bilateral effusions despite being on IV diuresis. Will switch Eliquis to heparin drip. 07/27: Patient continues to be on BIPAP. She desaturated to 70% when she was repositioned and laid down for a bath. She quickly recovered to the high 90s after placing her in upright position and increasing FiO2 from 40 to 70%. She says her SOB has remained stable on the BIPAP. Denies chest pain. Anticipating thoracentesis tomorrow. Cardiology has also recommended central line placement for initiation of dobutamine infusion for her heart failure. 07/28: Patient had central line placed last night and was started on dobutamine drip by cardio. Bedside thoracentesis attempted by radiology. Unfortunately, patient sustained a large right sided pneumothorax. She is saturating well on BIPAP and says her SOB is about the same and has not worsened. Surgery is on the way to put in a chest tube. 07/29: No acute event overnight. She is complaining of pain on the chest tube site. She says her breathing is slightly better. Denies chest pain. Repeat chest x-ray shows minimal right sided pneumothrax and significant improvement of previous bilateral effusions. She is currently saturating well on nasal cannula. Reason For Visit: ATRIAL FLUTTER Physical Exam Vital Signs: Temp Pulse Resp BP Pulse Ox 97.5 F 82 16 130/71 H 100 07/29/18 07:12 07/29/18 14:00 07/29/18 08:40 07/29/18 14:00 07/29/18 13:05 Pulse Oximeter Continuous Start: 07/29/18 13:05 Freq: Status: Active Protocol: Document 07/29/18 13:05 MELO (Rec: 07/29/18 13:06 J [email or web address]) Pulse Oximetry Assessment Oxygen Saturation (92-100) 100 Oxygen Flow Rate (L/min) 5 Oxygen Delivery Method Nasal Cannula Equipment Usage Initial Set Up Continuous Pulse Oximeter 24 Hour Charge Charge Now Continuous SpO2 Machine # 5 Intake & Output 07/28/18 07/29/18 07/30/18 06:59 06:59 06:59 Intake Total 704 865 0 Output Total 575 925 Balance 129 -60 0 Weight 186 lb 15.232 oz 192 lb 10.944 oz 192 lb 10.944 oz General appearance: PRESENT: no acute distress, well-developed, well-nourished Head exam: PRESENT: atraumatic, normocephalic Eye exam: PRESENT: conjunctiva pink, EOMI, PERRLA. ABSENT: scleral icterus Ear exam: PRESENT: normal external ear exam Mouth exam: PRESENT: moist, tongue midline Neck exam: ABSENT: carotid bruit, JVD, lymphadenopathy, thyromegaly Respiratory exam: PRESENT: rhonchi. ABSENT: rales, wheezes Cardiovascular exam: PRESENT: irregular rhythm. ABSENT: diastolic murmur, rubs, systolic murmur Pulses: PRESENT: normal dorsalis pedis pul GI/Abdominal exam: PRESENT: normal bowel sounds, soft. ABSENT: distended, guarding, mass, organolmegaly, rebound, tenderness Rectal exam: PRESENT: deferred Neurological exam: PRESENT: alert, awake, oriented to person, oriented to place, oriented to time, oriented to situation, CN II-XII grossly intact. ABSENT: motor sensory deficit Results Laboratory Results: 07/26/18 11:26 07/26/18 05:49 07/21/18 07/21/18 07/21/18 12:20 13:25 13:25 Creatine Kinase 67 63 CK-MB (CK-2) 1.99 Troponin I 0.094 NT-Pro-B Natriuret Pep 6620 H 07/21/18 07/21/18 07/22/18 19:05 19:05 01:00 Creatine Kinase 56 55 CK-MB (CK-2) Troponin I 0.094 NT-Pro-B Natriuret Pep 07/22/18 07/22/18 07/22/18 01:00 07:07 07:07 Creatine Kinase 53 CK-MB (CK-2) Troponin I 0.095 0.091 NT-Pro-B Natriuret Pep 07/22/18 07/23/18 07/23/18 07:07 23:52 23:52 Creatine Kinase 56 CK-MB (CK-2) 2.39 Troponin I 0.101 NT-Pro-B Natriuret Pep 6520 H 07/23/18 07/24/18 07/24/18 23:52 06:31 06:31 Creatine Kinase 93 CK-MB (CK-2) 2.89 Troponin I 0.115 NT-Pro-B Natriuret Pep 7130 H 07/24/18 07/24/18 07/24/18 11:47 11:47 18:27 Creatine Kinase 90 CK-MB (CK-2) 2.72 2.64 Troponin I 0.079 0.080 NT-Pro-B Natriuret Pep 07/24/18 07/24/18 07/25/18 18:27 18:44 00:35 Creatine Kinase Cancelled 105 CK-MB (CK-2) 2.59 Troponin I 0.071 NT-Pro-B Natriuret Pep 07/25/18 07/26/18 05:45 05:49 Creatine Kinase CK-MB (CK-2) Troponin I NT-Pro-B Natriuret Pep 8460 H 29260 H Impressions: Chest CT 07/21/18 12:31 IMPRESSION: 1. Bilateral pleural effusions with mild compressive atelectasis in the lower lobes. 2. Cardiomegaly. Minimal pericardial effusion. 3. Possible 3 cm left renal mass. Head CT 07/23/18 23:42 IMPRESSION: Mild atrophy and small vessel ischemic change TECHNICAL DOCUMENTATION: Quality ID # 436: Final reports with documentation of one or more dose reduction techniques (e.g., Automated exposure control, adjustment of the mA and/or kV according to patient size, use of iterative reconstruction technique) copyright 2011 [email or web address]- All Rights Reserved Chest Ultrasound 07/28/18 10:58 IMPRESSION: Unsuccessful portable thoracentesis under ultrasound guidance. We were unable to obtain fluid from the right pleural space. Patient developed an immediate large pneumothorax. Hospital surgeon notified, chest tube to be placed shortly. Chest X-Ray 07/29/18 00:00 IMPRESSION: There is a minimal right-sided pneumothorax, slightly decreased compared to prior examination with right-sided chest tube in position. There is significantly improved aeration of the bilateral lung bases. Unchanged cardiomegaly. Assessment and Plan - Diagnosis (1) Acute on chronic respiratory failure with hypoxemia Is this a current diagnosis for this admission?: Yes Plan: Secondary to CHF exacerbation with bilateral pleural effusions and new right sided pneumothorax. 07/29: Improving. Off BIPAP today and is doing well on NC. (2) Pneumothorax, right Is this a current diagnosis for this admission?: Yes Plan: 07/28: Patient sustained a large right sided pneumothorax during attempt for tho racentesis. S/P Chest tube placement by surgery. (3) Acute exacerbation of CHF (congestive heart failure) Is this a current diagnosis for this admission?: Yes Plan: Recent echo shows and EF of 25%. 07/28: Started on dobutamine drip last night. 07/29: Improving. Repeat chest x-ray shows significant improvement of pleural effusions. Continue IV Lasix. (4) Pleural effusion Is this a current diagnosis for this admission?: Yes Plan: 07/26: Bilateral effusions likely related to acute congestive heart failure. Will consult radiology for thoracentesis of persistent bilateral effusions despite being on IV diuresis. Will switch Eliquis to heparin to drip. 07/28: Thoracentesis was unsuccessful. Patient sustained pneumothorax during attempt. 07/29: Improving. Repeat chest x-ray shows significant improvement of pleural effusions. Continue IV Lasix. (5) Atrial fibrillation with RVR Is this a current diagnosis for this admission?: Yes Plan: 07/26: Currently rate-controlled. Will switch Eliquis to heparin to drip for anticipated thoracentesis. (6) Hypothyroidism Is this a current diagnosis for this admission?: Yes Plan: On synthroid. TSH has improved from 50 to 15. - Time Time Spent with patient: 25-34 minutes
--- NOTE | 2018-07-29 21:54 | Progress Note ---
Provider Note Provider Note: CARDIOLOGY PROGRESS NOTE by Dr. Kristen Davis on 07/29/2018. SUBJECTIVE: The patient states her shortness of breath is improved. She still has a chest tube. Her pneumothorax is resolved. She does have orthopnea. She continues to be in atrial flutter with controlled ventricular response she continues to be on dobutamine drip. There is no chest pain or discomfort. There is no PND. She has mild leg edema. There is no ventricular arrhythmia seen on the monitor. She denies any cough or sputum production. She had a right chest tube placed yesterday for pneumothorax after an attempted right thoracentesis. Right thoracentesis did not yield any fluid. Selected Entries 07/29/18 07/29/18 07:12 08:40 Temperature 97.5 F Temperature Axillary Source Pulse Rate 77 Respiratory 22 H Rate Blood Pressure 102/55 L Blood Pressure 70 Mean BP Location Right Leg BP Position Supine O2 Sat by Pulse 89 L 98 Oximetry Fraction of 60 Inspired Oxygen (FIO2) Oxygen Flow 3.5 Rate Oxygen Delivery Bipap Method HEAD: Atraumatic, normocephalic. EYES: Pupils equal round and reactive to light, extraocular movements intact, sclera anicteric, conjunctiva are normal. ENT: TMs normal, nares patent, oropharynx clear without exudates. Moist mucous membranes. NECK: Normal range of motion, supple without lymphadenopathy or JVD. Carotids are equal there is no bruits. There is no thyromegaly. There is no accessory muscles of respiration in use. Trachea central LUNGS: There is diminished air entry and prolonged expiration. There is occasional scattered rhonchi. There are no wet rales of CHF. There is diminished breath sounds in the bases with bilateral dry crackles. There is a chest tube in the right chest wall. On palpation there is no chest wall tenderness. HEART: S1-S2 is heard. S1 is of variable intensity. There is no S3 gallop. There is no S4 gallop. There is systolic murmur left sternal border and apex without radiation. There is no rub.. ABDOMEN: Soft, nontender, normoactive bowel sounds. There is no hepatosplenic megaly no guarding, no rebound. No masses appreciated. EXTREMITIES: Normal range of motion, no pitting or edema. No clubbing or cyanosis. Femorals are well felt. There is no f emoral bruits. Leg pulses are well felt. There is no DVT or cellulitis. There is no calf tenderness NEUROLOGICAL: Cranial nerves II through XII grossly intact. Normal speech, normal gait. The patient is awake alert oriented x3 with no focal deficits. PSYCH: Normal mood, normal affect. The patient judgment and insight are intact SKIN: Warm, Dry, normal turgor, no rashes or lesions noted. There is no petechia or ecchymosis IMPRESSION/RECOMMENDATION: 1. Paroxysmal atrial fibrillation. At present patient is in atrial flutter. 2. Acute exacerbation of COPD: Improving continue respiratory treatments and oxygen. 3. CARDIOMYOPATHY:: Continue the patient on dobutamine drip. Continue Lasix and ARB and beta-blockers. 4. Status post attempted right-sided thoracentesis, which ended up with the patient having right-sided pneumothorax. She is status post large bore chest tube to relieve the pneumothorax. At present the pneumothorax is almost completely resolved.. 5. Diabetes mellitus type 2 [id number] 6. Hypothyroidism: Continue thyroid replacement. 7. History of GERD: At present stable. Continue proton pump inhibitors. 8. History of depression: Continue antidepressants. 9. History of lymphoma: At present seems to be in remission 10. History of acute on chronic respiratory failure. Medications reviewed. Medications adjusted. Medical decision making is still of high complexity. Management plan discussed with the attending physician on the case. Note 40 minutes spent on this patient with more than 50% of time spent in direct patient care. We will follow
[2018-07-29] MEDS: ATORVASTATIN CALCIUM 80 MG TABLET PO SCH (22:07)
[2018-07-29] MEDS: MELATONIN 3 MG TABLET PO SCH (22:07)
[2018-07-29] MEDS: MONTELUKAST SODIUM 10 MG TABLET PO SCH (22:07)
[2018-07-29] MEDS: AZITHROMYCIN 500 MG in DEXTROSE 5%-WATER 250 ML IV SCH (22:12)
[2018-07-30] MEDS ORDERED: LISINOPRIL 5 MG TABLET PO ONE (02:00)
[2018-07-30] MEDS ORDERED: METOPROLOL TARTRATE 25 MG TABLET PO ONE (02:00)
[2018-07-30] MEDS ORDERED: DIGOXIN INJ 0.5 MG/2 ML AMPULE IV ONE (02:00)
[2018-07-30] MEDS: CEFTRIAXONE 1 GM/D5W RTU 1 GM/50 ML RTUPB IV SCH (05:28)
[2018-07-30] MEDS: LEVOTHYROXINE SODIUM 0.05 MG TABLET PO SCH (05:29)
[2018-07-30] MEDS: FUROSEMIDE INJ/PF 20 MG/2 ML SDV IV SCH ×3 (05:31→21:28)
--- NOTE | 2018-07-30 08:13 | RADIOLOGY REPORT (SQ) ---
EXAM DESCRIPTION: CHEST SINGLE VIEW COMPLETED DATE/TIME: 07/30/2018 8:00 am REASON FOR STUDY: reassess pneumo COMPARISON: AP chest 07/29/2018, 07/28/2018, 07/27/2018 EXAM PARAMETERS: NUMBER OF VIEWS: One view. TECHNIQUE: Single frontal radiographic view of the chest acquired. RADIATION DOSE: NA LIMITATIONS: None. FINDINGS: LUNGS AND PLEURA: Large bore right chest tube in place. No pneumothorax. There is patchy bibasilar airspace disease similar compared to 07/29/2018. No gross pleural effusions . MEDIASTINUM AND HILAR STRUCTURES: No masses. Contour normal. HEART AND VASCULAR STRUCTURES: Stable moderate to marked cardiomegaly. BONES: No acute findings. HARDWARE: Large bore right chest tube in place, no pneumothorax. Left jugular central line tip super ior vena cava. OTHER: No other significant finding. IMPRESSION: No pneumothorax. Right large bore chest tube in place. Stable cardiomegaly and bibasilar infiltrates TECHNICAL DOCUMENTATION: JOB ID: [id number] [employer]- All Rights Reserved Reading location - IP/workstation name: [email or web address]
[2018-07-30] MEDS: BUDESONIDE NEB 0.5 MG/2 ML AMPUL NEB SCH ×2 (09:03→20:40)
[2018-07-30] MEDS: METHYLPREDNISOLONE INJ 125 MG/2 ML SDV IV SCH (09:08)
[2018-07-30] MEDS: POTASSIUM CHLORIDE 20 MEQ/15 ML UDCUP PO SCH (09:09)
[2018-07-30] MEDS: FLUTICASONE/VILANTEROL 100-25 MCG/DOSE IH SCH (09:09)
[2018-07-30] MEDS: DIGOXIN INJ 0.5 MG/2 ML AMPULE IV SCH (09:09)
[2018-07-30] MEDS: MULTIVITAMIN TABLET PO SCH (09:10)
[2018-07-30] MEDS: DULOXETINE HCL 30 MG CAPSULE.DR PO SCH (09:10)
[2018-07-30] MEDS: MAGNESIUM OXIDE 400 MG TABLET PO SCH ×2 (09:10→17:14)
[2018-07-30] MEDS: LACTOBACILLUS ACIDOPHILUS 250 MG TAB PO SCH (09:10)
[2018-07-30] MEDS: LISINOPRIL 5 MG TABLET PO SCH ×2 (09:10→21:27)
[2018-07-30] MEDS: ESCITALOPRAM OXALATE 10 MG TABLET PO SCH (09:10)
[2018-07-30] MEDS: BUSPIRONE HCL 10 MG TABLET PO SCH ×2 (09:10→21:26)
[2018-07-30] MEDS: METOPROLOL TARTRATE 25 MG TABLET PO SCH ×2 (09:11→21:27)
[2018-07-30] MEDS: FAMOTIDINE 20 MG TABLET PO SCH ×2 (09:11→21:27)
[2018-07-30] MEDS: DOCUSATE SODIUM 100 MG CAPSULE PO SCH ×2 (09:11→21:27)
[2018-07-30] MEDS: NICOTINE 21 MG/24 HR PATCH.TD24 TD SCH (09:11)
[2018-07-30] MEDS: GUAIFENESIN 600 MG TABLET.SA PO SCH ×2 (09:11→21:27)
--- NOTE | 2018-07-30 11:37 | PDOC PROGRESS REPORT ---
Subjective Progress Note for:: 07/30/18 Subjective:: This is a 73-year-old female status post right-sided chest tube insertion for a pneumothorax. The pneumothorax occurred after a thoracentesis. The patient is somewhat confused this morning. She denies shortness of breath, although she does report pain in the right lateral thorax (in the area of the chest tube). She is somewhat agitated this morning and is requesting discharge home. She denies nausea or vomiting. She denies abdominal pain. Reason For Visit: ATRIAL FLUTTER Physical Exam Vital Signs: Temp Pulse Resp BP Pulse Ox 98.6 F 139 H 14 121/65 96 07/30/18 07:13 07/30/18 09:04 07/30/18 09:07 07/30/18 11:00 07/30/18 09:07 Pulse Oximeter Continuous Start: 07/29/18 13:05 Freq: Status: Active Protocol: Document 07/29/18 16:32 [facility] (Rec: 07/29/18 17:08 [facility] [email or web address]) Pulse Oximetry Assessment Oxygen Saturation (92-100) 100 Oxygen Flow Rate (L/min) 5 Oxygen Delivery Method Nasal Cannula Fraction of Inspired Oxygen (FIO2) 40 Equipment Usage Equipment in Use Continuous SpO2 Machine # 5 Intake & Output 07/29/18 07/30/18 07/31/18 06:59 06:59 06:59 Intake Total 865 501 29 Output Total 925 700 Balance -60 -199 29 Weight 87.4 kg 89.4 kg General appearance: PRESENT: no acute distress Head exam: PRESENT: atraumatic, normocephalic Eye exam: PRESENT: EOMI Mouth exam: PRESENT: neck supple Neck exam: ABSENT: tenderness, tracheal deviation Respiratory exam: PRESENT: chest wall tenderness - Right-sided, unlabored, other - Chest tube with no air leak, on suction today. Serosanguineous output.. ABSENT: tachypnea, wheezes Pulses: PRESENT: normal radial pulses Vascular exam: PRESENT: normal capillary refill GI/Abdominal exam: PRESENT: soft. ABSENT: distended, guarding, tenderness Rectal exam: PRESENT: deferred Extremities exam: ABSENT: clubbing Musculoskeletal exam: ABSENT: deformity Neurological exam: PRESENT: alert, awake, oriented to person, oriented to place. ABSENT: oriented to situation Psychiatric exam: PRESENT: agitated, anxious. ABSENT: depressed Focused psych exam: PRESENT: other - Confused Skin exam: ABSENT: cyanosis, erythema, jaundice Results Laboratory Results: 07/26/18 11:26 07/26/18 05:49 07/21/18 07/21/18 07/21/18 12:20 13:25 13:25 Creatine Kinase 67 63 CK-MB (CK-2) 1.99 Troponin I 0.094 NT-Pro-B Natriuret Pep 6620 H 07/21/18 07/21/18 07/22/18 19:05 19:05 01:00 Creatine Kinase 56 55 CK-MB (CK-2) Troponin I 0.094 NT-Pro-B Natriuret Pep 07/22/18 07/22/18 07/22/18 01:00 07:07 07:07 Creatine Kinase 53 CK-MB (CK-2) Troponin I 0.095 0.091 NT-Pro-B Natriuret Pep 07/22/18 07/23/18 07/23/18 07:07 23:52 23:52 Creatine Kinase 56 CK-MB (CK-2) 2.39 Troponin I 0.101 NT-Pro-B Natriuret Pep 6520 H 07/23/18 07/24/18 07/24/18 23:52 06:31 06:31 Creatine Kinase 93 CK-MB (CK-2) 2.89 Troponin I 0.115 NT-Pro-B Natriuret Pep 7130 H 07/24/18 07/24/18 07/24/18 11:47 11:47 18:27 Creatine Kinase 90 CK-MB (CK-2) 2.72 2.64 Troponin I 0.079 0.080 NT-Pro-B Natriuret Pep 07/24/18 07/24/18 07/25/18 18:27 18:44 00:35 Creatine Kinase Cancelled 105 CK-MB (CK-2) 2.59 Troponin I 0.071 NT-Pro-B Natriuret Pep 07/25/18 07/26/18 05:45 05:49 Creatine Kinase CK-MB (CK-2) Troponin I NT-Pro-B Natriuret Pep 8460 H 78486 H Impressions: Chest CT 07/21/18 12:31 IMPRESSION: 1. Bilateral pleural effusions with mild compressive atelectasis in the lower lobes. 2. Cardiomegaly. Minimal pericardial effusion. 3. Possible 3 cm left renal mass. Head CT 07/23/18 23:42 IMPRESSION: Mild atrophy and small vessel ischemic change TECHNICAL DOCUMENTATION: Quality ID # 436: Final reports with documentation of one or more dose reduction techniques (e.g., Automated exposure control, adjustment of the mA and/or kV according to patient size, use of iterative reconstruction technique) copyright 2011 [employer]- All Rights Reserved Chest Ultrasound 07/28/18 10:58 IMPRESSION: Unsuccessful portable thoracentesis under ultrasound guidance. We were unable to obtain fluid from the right pleural space. Patient developed an immediate large pneumothorax. Hospital surgeon notified, chest tube to be placed shortly. Chest X-Ray 07/30/18 07:00 IMPRESSION: No pneumothorax. Right large bore chest tube in place. Stable cardiomegaly and bibasilar infiltrates Assessment & Plan - Diagnosis (1) Pneumothorax on right Is this a current diagnosis for this admission?: Yes - Plan Summary Plan Summary: Is a 73-year-old female status post right tube thoracostomy for a pneumothorax. There is no air leak appreciable today on exam. There is no pneumothorax on x- ray today (I have reviewed the patient's films and report). I have placed the chest tube to waterseal. I will repeat her x-ray tomorrow. If her x-ray tomorrow is unchanged (and there is still no airleak) the tube may be removed. I will follow this patient closely with you.
--- NOTE | 2018-07-30 14:51 | PDOC PROGRESS REPORT ---
Subjective Progress Note for:: 07/30/18 Subjective:: This is a 73 yr old female with a PMH of atrial fibrillation, congestive heart failure, hypertension, COPD on 2 L oxygen, CPAP at night, and depression who presented with increasing SOB. She was also found to be in AFib with RVR and also treated for CHF congestion. 07/26: Chest x-ray shows bilateral pleural effusions. Per RN, she has been BIPAP- dependent for the past 2 days. She does desaturate to 80% off BIPAP. She reports of SOB and says she feels better with the BIPAP. She is currently in AFib, rate- controlled in the 80s. Will consult radiology for thoracentesis of persistent bilateral effusions despite being on IV diuresis. Will switch Eliquis to heparin drip. 07/27: Patient continues to be on BIPAP. She desaturated to 70% when she was repositioned and laid down for a bath. She quickly recovered to the high 90s after placing her in upright position and increasing FiO2 from 40 to 70%. She says her SOB has remained stable on the BIPAP. Denies chest pain. Anticipating thoracentesis tomorrow. Cardiology has also recommended central line placement for initiation of dobutamine infusion for her heart failure. 07/28: Patient had central line placed last night and was started on dobutamine drip by cardio. Bedside thoracentesis attempted by radiology. Unfortunately, patient sustained a large right sided pneumothorax. She is saturating well on BIPAP and says her SOB is about the same and has not worsened. Surgery is on the way to put in a chest tube. 07/29: She is complaining of pain on the chest tube site. She says her breathing is slightly better. Denies chest pain. Repeat chest x-ray shows minimal right sided pneumothrax and significant improvement of previous bilateral effusions. She is currently saturating well on nasal cannula. 07/30: No acute event overnight. She was a little confused this morning in that she thought she was going home today. She is oriented to person, place and knows the month and year. Denies worsening SOB. Denies chest pain. Chest x-ray this morning shows resolution of pneumothorax but reappearance of basilar infiltrates. Chest tube has been watersealed and surgery is planning to remove it tomorrow. Reason For Visit: ATRIAL FLUTTER Physical Exam Vital Signs: Temp Pulse Resp BP Pulse Ox 98.3 F 66 12 108/52 L 100 07/30/18 11:24 07/30/18 11:24 07/30/18 12:21 07/30/18 12:00 07/30/18 12:21 Pulse Oximeter Continuous Start: 07/29/18 13:05 Freq: Status: Active Protocol: Document 07/29/18 16:32 [facility] (Rec: 07/29/18 17:08 [facility] [id number]) Pulse Oximetry Assessment Oxygen Saturation (92-100) 100 Oxygen Flow Rate (L/min) 5 Oxygen Delivery Method Nasal Cannula Fraction of Inspired Oxygen (FIO2) 40 Equipment Usage Equipment in Use Continuous SpO2 Machine # 5 Intake & Output 07/29/18 07/30/18 07/31/18 06:59 06:59 06:59 Intake Total 865 501 79 Output Total 925 700 200 Balance -60 -199 -121 Weight 192 lb 10.944 oz 197 lb 1.492 oz General appearance: PRESENT: no acute distress, well-developed, well-nourished Head exam: PRESENT: atraumatic, normocephalic Eye exam: PRESENT: conjunctiva pink, EOMI, PERRLA. ABSENT: scleral icterus Ear exam: PRESENT: normal external ear exam Mouth exam: PRESENT: moist, tongue midline Neck exam: ABSENT: carotid bruit, JVD, lymphadenopathy, thyromegaly Respiratory exam: PRESENT: rales, rhonchi. ABSENT: wheezes Cardiovascular exam: PRESENT: RRR. ABSENT: diastolic murmur, rubs, systolic murmur Pulses: PRESENT: normal dorsalis pedis pul GI/Abdominal exam: PRESENT: normal bowel sounds, soft. ABSENT: distended, guarding, mass, organolmegaly, rebound, tenderness Rectal exam: PRESENT: deferred Neurological exam: PRESENT: alert, awake, oriented to person, oriented to place, oriented to time, CN II-XII grossly intact. ABSENT: oriented to situation, motor sensory deficit Results Laboratory Results: 07/26/18 11:26 07/26/18 05:49 07/21/18 07/21/18 07/21/18 12:20 13:25 13:25 Creatine Kinase 67 63 CK-MB (CK-2) 1.99 Troponin I 0.094 NT-Pro-B Natriuret Pep 6620 H 07/21/18 07/21/18 07/22/18 19:05 19:05 01:00 Creatine Kinase 56 55 CK-MB (CK-2) Troponin I 0.094 NT-Pro-B Natriuret Pep 07/22/18 07/22/18 07/22/18 01:00 07:07 07:07 Creatine Kinase 53 CK-MB (CK-2) Troponin I 0.095 0.091 NT-Pro-B Natriuret Pep 07/22/18 07/23/18 07/23/18 07:07 23:52 23:52 Creatine Kinase 56 CK-MB (CK-2) 2.39 Troponin I 0.101 NT-Pro-B Natriuret Pep 6520 H 07/23/18 07/24/18 07/24/18 23:52 06:31 06:31 Creatine Kinase 93 CK-MB (CK-2) 2.89 Troponin I 0.115 NT-Pro-B Natriuret Pep 7130 H 07/24/18 07/24/18 07/24/18 11:47 11:47 18:27 Creatine Kinase 90 CK-MB (CK-2) 2.72 2.64 Troponin I 0.079 0.080 NT-Pro-B Natriuret Pep 07/24/18 07/24/18 07/25/18 18:27 18:44 00:35 Creatine Kinase Cancelled 105 CK-MB (CK-2) 2.59 Troponin I 0.071 NT-Pro-B Natriuret Pep 07/25/18 07/26/18 05:45 05:49 Creatine Kinase CK-MB (CK-2) Troponin I NT-Pro-B Natriuret Pep 8460 H 65056 H Impressions: Chest CT 07/21/18 12:31 IMPRESSION: 1. Bilateral pleural effusions with mild compressive atelectasis in the lower lobes. 2. Cardiomegaly. Minimal pericardial effusion. 3. Possible 3 cm left renal mass. Head CT 07/23/18 23:42 IMPRESSION: Mild atrophy and small vessel ischemic change TECHNICAL DOCUMENTATION: Quality ID # 436: Final reports with documentation of one or more dose reduction techniques (e.g., Automated exposure control, adjustment of the mA and/or kV according to patient size, use of iterative reconstruction technique) copyright 2011 [employer]- All Rights Reserved Chest Ultrasound 07/28/18 10:58 IMPRESSION: Unsuccessful portable thoracentesis under ultrasound guidance. We were unable to obtain fluid from the right pleural space. Patient developed an immediate large pneumothorax. Hospital surgeon notified, chest tube to be placed shortly. Chest X-Ray 07/30/18 07:00 IMPRESSION: No pneumothorax. Right large bore chest tube in place. Stable cardiomegaly and bibasilar infiltrates Assessment and Plan - Diagnosis (1) Acute on chronic respiratory failure with hypoxemia Is this a current diagnosis for this admission?: Yes Plan: Secondary to CHF exacerbation with bilateral pleural effusions and new iatrogenic right sided pneumothorax. 07/29: Improving. Off BIPAP today and is doing well on NC. 07/30: Continues to do well on nasal cannula. (2) Pneumothorax, right Is this a current diagnosis for this admission?: Yes Plan: 07/28: Patient sustained a large right sided pneumothorax during attempt for thoracentesis. S/P Chest tube placement by surgery. 07/30: Chest x-ray this morning shows resolution of pneumothorax but reappearance of basilar infiltrates. Chest tube has been watersealed and surgery is planning to remove it tomorrow. (3) Acute exacerbation of CHF (congestive heart failure) Is this a current diagnosis for this admission?: Yes Plan: Recent echo shows and EF of 25%. 07/28: Started on dobutamine drip last night. 07/29: Improving. Repeat chest x-ray shows significant improvement of pleural effusions. 07/30: Chest x-ray this morning shows resolution of pneumothorax but reappearance of basilar infiltrates. Continue IV Lasix. (4) Pleural effusion Is this a current diagnosis for this admission?: Yes Plan: 07/26: Bilateral effusions likely related to acute congestive heart failure. Will consult radiology for thoracentesis of persistent bilateral effusions despite being on IV diuresis. Will switch Eliquis to heparin to drip. 07/28: Thoracentesis was unsuccessful. Patient sustained pneumothorax during attempt. 07/29: Improving. Repeat chest x-ray shows significant improvement of pleural effusions. 07/30: Chest x-ray this morning shows resolution of pneumothorax but reappearance of basilar infiltrates. Continue IV Lasix. (5) Atrial fibrillation with RVR Is this a current diagnosis for this admission?: Yes Plan: 07/26: Currently rate-controlled. Will switch Eliquis to heparin to drip for a nticipated thoracentesis. 07/30: Continue heparin drip for for now. (6) Hypothyroidism Is this a current diagnosis for this admission?: Yes Plan: On synthroid. TSH has improved from 50 to 15. - Time Time Spent with patient: 25-34 minutes
[2018-07-30 16:33] LABS: HEMATOCRIT 25.2 % (36.0-47.0); HEMOGLOBIN 8.5 g/dL (12.0-15.5); MEAN CORPUSCULAR HEMOGLOBIN 29.5 pg (27.0-33.4); MEAN CORPUSCULAR HGB CONC 33.7 g/dL (32.0-36.0); MEAN CORPUSCULAR VOLUME 87 fl (80-97); PLATELET COUNT 139 10^3/uL (150-450); RED BLOOD COUNT 2.88 10^6/uL (3.72-5.28); WHITE BLOOD COUNT 8.1 10^3/uL (4.0-10.5)
[2018-07-30 16:47] LABS: ALANINE AMINOTRANSFERASE 46 U/L (9-52); ALKALINE PHOSPHATASE 82 U/L (38-126); ASPARTATE AMINO TRANSFERASE 50 U/L (14-36); BILIRUBIN,DIRECT 0.3 mg/dL (0.0-0.4); BILIRUBIN,TOTAL 0.5 mg/dL (0.2-1.3); BLOOD UREA NITROGEN 26 mg/dL (7-20); CALCIUM 7.9 mg/dL (8.4-10.2); GLUCOSE 87 mg/dL (75-110); POTASSIUM 4.6 mmol/L (3.6-5.0); TOTAL PROTEIN 4.3 g/dL (6.3-8.2)
[2018-07-30 16:53] LABS: CARBON DIOXIDE 29 mmol/L (22-30); CHLORIDE 100 mmol/L (98-107); SODIUM 133.1 mmol/L (137-145)
[2018-07-30 16:54] LABS: ANION GAP 4 (5-19)
[2018-07-30 16:55] LABS: ABSOLUTE LYMPHOCYTES# (MANUAL) 0.6 10^3/uL (0.5-4.7); ABSOLUTE MONOCYTES # (MANUAL) 0.1 10^3/uL (0.1-1.4); ABSOLUTE NEUTROPHILS# (MANUAL) 7.4 10^3/uL (1.7-8.2); BASOPHILS % (MANUAL) 0 % (0-2); EOSINOPHILS % (MANUAL) 0 % (0-6); LYMPHOCYTES % (MANUAL) 8 % (13-45); MONOCYTES % (MANUAL) 1 % (3-13); SEGMENTED NEUTROPHILS % (MAN) 91 % (42-78); TOTAL CELLS COUNTED 100
[2018-07-30 16:56] LABS: ANISOCYTOSIS SLIGHT; OVALOCYTES 1+; PLATELET COMMENT DECREASED; POIKILOCYTOSIS 1+
[2018-07-30] MEDS: DOBUTAMINE HCL/D5W 500 MG/250 ML RTUINJ IV PRN (19:17)
[2018-07-30] MEDS: HEPARIN SODIUM,PORCINE/D5W 25,000 UNIT/250 ML RTUINJ IV PRN (19:19)
[2018-07-30] MEDS: MONTELUKAST SODIUM 10 MG TABLET PO SCH (21:27)
[2018-07-30] MEDS: ATORVASTATIN CALCIUM 80 MG TABLET PO SCH (21:27)
[2018-07-30] MEDS: MELATONIN 3 MG TABLET PO SCH (21:28)
--- NOTE | 2018-07-30 22:55 | Progress Note ---
Provider Note Provider Note: CARDIOLOGY PROGRESS NOTE by Dr. Kristen Davis on 07/30/2018. SUBJECTIVE: The patient states her shortness of breath is improved. She still has a chest tube. Her pneumothorax is resolved. She does have orthopnea. She continues to be in atrial flutter with controlled ventricular response she continues to be on dobutamine drip. There is no chest pain or discomfort. There is no PND. She has mild leg edema. There is no ventricular arrhythmia seen on the monitor. She denies any cough or sputum production. PHYSICAL EXAMINATION: The patient is mildly obese. Appears to be chronically ill., But in no acute distress. She is well-nourished. Selected Entries 07/30/18 07/30/18 07/30/18 09:07 09:10 11:24 Temperature 98.3 F Temperature Axillary Source Pulse Rate 66 Respiratory 13 Rate Blood Pressure 114/66 Blood Pressure 82 Mean BP Location Right Leg BP Position Supine O2 Sat by Pulse 100 Oximetry Fraction of 40 Inspired Oxygen (FIO2) Oxygen Flow 5 Rate Oxygen Delivery Bipap Method HEAD: Atraumatic, normocephalic. EYES: Pupils equal round and reactive to light, extraocular movements intact, sclera anicteric, conjunctiva are normal. ENT: TMs normal, nares patent, oropharynx clear without exudates. Moist mucous membranes. NECK: Normal range of motion, supple without lymphadenopathy or JVD. Carotids are equal there is no bruits. There is no thyromegaly. There is no accessory muscles of respiration in use. Trachea central LUNGS: There is diminished air entry and prolonged expiration. There is occasional scattered rhonchi. There are no wet rales of CHF. There is diminished breath sounds in the bases with bilateral dry crackles. On palpation there is no chest wall tenderness. HEART: S1-S2 is heard. S1 is of variable intensity. There is no S3 gallop. There is no S4 gallop. There is systolic murmur left sternal border and apex without radiation. There is no rub.. ABDOMEN: Soft, nontender, normoactive bowel sounds. There is no hepatosplenic megaly no guarding, no rebound. No masses appreciated. EXTREMITIES: Normal range of motion, no pitting or edema. No clubbing or cyanosis. Femorals are well felt. There is no femoral bruits. Leg pulses are well felt. There is no DVT or cellulitis. There is no calf tenderness NEUROLOGICAL: Cranial nerves II through XII grossly intact. Normal speech, normal gait. The patient is awake alert oriented x3 with no focal deficits. PSYCH: Normal mood, normal affect. The patient judgment and insight are intact SKIN: Warm, Dry, normal turgor, no rashes or lesions noted. There is no petechia or ecchymosis Labs- All tests 24 hr 07/30/18 07/30/18 07/30/18 02:31 10:15 15:55 WBC 8.1 RBC 2.88 L Hgb 8.5 L Hct 25.2 L MCV 87 MCH 29.5 MCHC 33.7 RDW 14.0 Plt Count 139 L Total Counted 100 Seg Neutrophils % Not Reportable Seg Neuts % (Manual) 91 H Lymphocytes % Not Reportable Lymphocytes % (Manual) 8 L Monocytes % Not Reportable Monocytes % (Manual) 1 L Eosinophils % Not Reportable Eosinophils % (Manual) 0 Basophils % Not Reportable Basophils % (Manual) 0 Absolute Neutrophils Not Reportable Abs Neuts (Manual) 7.4 Absolute Lymphocytes Not Reportable Abs Lymphs (Manual) 0.6 Absolute Monocytes Not Reportable Abs Monocytes (Manual) 0.1 Absolute Eosinophils Not Reportable Absolute Eos (Manual) 0.0 Absolute Basophils Not Reportable Abs Basophils (Manual) 0.0 Platelet Comment DECREASED Poikilocytosis 1+ Anisocytosis SLIGHT Ovalocytes 1+ APTT > 235.0 H* 110.2 H Sodium Potassium Chloride Carbon Dioxide Anion Gap BUN Creatinine Est GFR ( Amer) Est GFR (Non-Af Amer) Glucose Calcium Total Bilirubin Direct Bilirubin Neonat Total Bilirubin Neonat Direct Bilirubin Neonat Indirect Bili AST ALT Alkaline Phosphatase Total Protein Albumin 07/30/18 07/30/18 15:55 16:16 WBC RBC Hgb Hct MCV MCH MCHC RDW Plt Count Total Counted Seg Neutrophils % Seg Neuts % (Manual) Lymphocytes % Lymphocytes % (Manual) Monocytes % Monocytes % (Manual) Eosinophils % Eosinophils % (Manual) Basophils % Basophils % (Manual) Absolute Neutrophils Abs Neuts (Manual) Absolute Lymphocytes Abs Lymphs (Manual) Absolute Monocytes Abs Monocytes (Manual) Absolute Eosinophils Absolute Eos (Manual) Absolute Basophils Abs Basophils (Manual) Platelet Comment Poikilocytosis Anisocytosis Ovalocytes APTT 64.1 H Sodium 133.1 L Potassium 4.6 Chloride 100 Carbon Dioxide 29 Anion Gap 4 L BUN 26 H Creatinine 1.21 Est GFR ( Amer) 53 L Est GFR (Non-Af Amer) 44 L Glucose 87 Calcium 7.9 L Total Bilirubin 0.5 Direct Bilirubin 0.3 Neonat Total Bilirubin Not Reportable Neonat Direct Bilirubin Not Reportable Neonat Indirect Bili Not Reportable AST 50 H ALT 46 Alkaline Phosphatase 82 Total Protein 4.3 L Albumin 2.0 L Chest X-Ray 07/21/18 11:44 IMPRESSION: Pleural effusions. Asymmetric edema or pneumonia. Chest CT 07/21/18 12:31 IMPRESSION: 1. Bilateral pleural effusions with mild compressive atelectasis in the lower lobes. 2. Cardiomegaly. Minimal pericardial effusion. 3. Possible 3 cm left renal mass. Head CT 07/23/18 23:42 IMPRESSION: Mild atrophy and small vessel ischemic change TECHNICAL DOCUMENTATION: Quality ID # 436: Final reports with documentation of one or more dose reduction techniques (e.g., Automated exposure control, adjustment of the mA and/or kV according to patient size, use of iterative reconstruction technique) copyright 2011 [employer]- All Rights Reserved Chest X-Ray 07/24/18 00:00 IMPRESSION: Bilateral pleural effusions, right greater than left. Chest X-Ray 07/27/18 00:00 IMPRESSION: Central venous access catheter placed via left IJ approach. Catheter tip at superior vena cava. No pneumothorax. Increased bilateral basilar airspace opacities and pleural effusions. Chest X-Ray 07/28/18 00:00 IMPRESSION: About 50% right pneumothorax post unsuccessful thoracentesis attempt. Report was called to the hospitalist surgeon who will place a large bore right chest tube shortly. Chest X-Ray 07/28/18 00:00 IMPRESSION: Interval insertion of a large caliber right chest tube with resolution of the right pneumothorax. Persistent vascular congestion. Persistent basilar opacities and small effusions. Chest Ultrasound 07/28/18 10:58 IMPRESSION: Unsuccessful portable thoracentesis under ultrasound guidance. We were unable to obtain fluid from the right pleural space. Patient developed an immediate large pneumothorax. Hospital surgeon notified, chest tube to be placed shortly. Chest X-Ray 07/29/18 00:00 IMPRESSION: There is a minimal right-sided pneumothorax, slightly decreased compared to prior examination with right-sided chest tube in position. There is significantly improved aeration of the bilateral lung bases. Unchanged cardiomegaly. Chest X-Ray 07/30/18 07:00 IMPRESSION: No pneumothorax. Right large bore chest tube in place. Stable cardiomegaly and bibasilar infiltrates IMPRESSION/RECOMMENDATION: 1. Paroxysmal atrial fibrillation. At present patient is in atrial flutter. We will continue the patient on Cardizem CD 180 mg p.o. every 12 hours, and increase as tolerated. We will restart the patien's Eliquis, when deemed safe by surgeon. 2. Acute exacerbation of COPD: Improving continue respiratory treatments and oxygen. 3. CARDIOMYOPATHY:: Continue the patient on dobutamine drip. Continue Lasix and ARB and beta-blockers. 4. Status post attempted right-sided thoracentesis, which ended up with the p atient having right-sided pneumothorax. She is status post large bore chest tube to relieve the pneumothorax. At present the pneumothorax is almost completely resolved.. 5. Diabetes mellitus type 2 [id number] 6. Hypothyroidism: Note thyroid stimulating hormones a very high, suggesting hypothyroidism. Would recommend increasing the patient's thyroid replacement. Will increase the patient's thyroxine to 125 mcg p.o. daily, and watch heart rate response to the patient's increased dose of levothyroxine. [Note in May the patient was admitted with iatrogenic hyper thyroidism.] 7. History of GERD: At present stable. Continue proton pump inhibitors. 8. History of depression: Continue antidepressants. 9. History of lymphoma: At present seems to be in remission 10. History of acute on chronic respiratory failure. Medications reviewed. Medications adjusted. Medical decision making is still of high complexity. Management plan discussed with the attending physician on the case. Note 40 minutes spent on this patient with more than 50% of time spent in direct patient care. We will follow
[2018-07-31] MEDS: FUROSEMIDE INJ/PF 20 MG/2 ML SDV IV SCH ×4 (05:25→23:43)
[2018-07-31] MEDS: LEVOTHYROXINE SODIUM 0.05 MG TABLET PO SCH (05:25)
[2018-07-31] MEDS: HEPARIN SOD (PORCINE) 1,000 UNIT/ML 10 ML VIAL IV PRN (06:19)
[2018-07-31] MEDS: HEPARIN SODIUM,PORCINE/D5W 25,000 UNIT/250 ML RTUINJ IV PRN (06:20)
--- NOTE | 2018-07-31 07:53 | RADIOLOGY REPORT (SQ) ---
CLINICAL HISTORY: PTX COMPARISON: 2017. TECHNIQUE: XR CHEST 1 VIEW 07/31/2018 6:00 AM CDT FINDINGS: The heart is enlarged. There is minimal bibasilar airspace disease. There are probable small pleural effusions. There is no pneumothorax. There are no acute osseous findings. Left IJ central line and right chest tube are unchanged. IMPRESSION: No change. No pneumothorax.
[2018-07-31] MEDS: BUDESONIDE NEB 0.5 MG/2 ML AMPUL NEB SCH ×2 (08:32→20:44)
[2018-07-31] MEDS ORDERED: HALOPERIDOL LACTATE INJ 5 MG/1 ML VIAL IV ONE (09:00)
[2018-07-31] MEDS: METHYLPREDNISOLONE INJ 125 MG/2 ML SDV IV SCH (09:18)
[2018-07-31] MEDS: POTASSIUM CHLORIDE 20 MEQ/15 ML UDCUP PO SCH (09:18)
[2018-07-31] MEDS: NICOTINE 21 MG/24 HR PATCH.TD24 TD SCH (09:18)
[2018-07-31] MEDS: LISINOPRIL 5 MG TABLET PO SCH ×2 (09:18→21:42)
[2018-07-31] MEDS: BUSPIRONE HCL 10 MG TABLET PO SCH ×2 (09:18→21:42)
[2018-07-31] MEDS: MAGNESIUM OXIDE 400 MG TABLET PO SCH ×2 (09:19→17:21)
[2018-07-31] MEDS: FAMOTIDINE 20 MG TABLET PO SCH ×2 (09:19→21:41)
[2018-07-31] MEDS: LACTOBACILLUS ACIDOPHILUS 250 MG TAB PO SCH (09:19)
[2018-07-31] MEDS: DULOXETINE HCL 30 MG CAPSULE.DR PO SCH (09:19)
[2018-07-31] MEDS: MULTIVITAMIN TABLET PO SCH (09:19)
[2018-07-31] MEDS: METOPROLOL TARTRATE 25 MG TABLET PO SCH ×2 (09:19→21:41)
[2018-07-31] MEDS: GUAIFENESIN 600 MG TABLET.SA PO SCH ×2 (09:19→21:41)
[2018-07-31] MEDS: DIGOXIN INJ 0.5 MG/2 ML AMPULE IV SCH (09:19)
[2018-07-31] MEDS: ESCITALOPRAM OXALATE 10 MG TABLET PO SCH (09:19)
[2018-07-31] MEDS: FLUTICASONE/VILANTEROL 100-25 MCG/DOSE IH SCH (09:21)
[2018-07-31] MEDS: DOCUSATE SODIUM 100 MG CAPSULE PO SCH ×2 (09:31→21:41)
--- NOTE | 2018-07-31 11:05 | EKG REPORT ---
SEVERITY:- ABNORMAL ECG - ATRIAL FLUTTER, A-RATE 254 NONSPECIFIC INTRAVENTRICULAR CONDUCTION DELAY PROBABLE LVH WITH SECONDARY REPOL ABNRM : Confirmed by: Kristen Davis MD 31-Jul-2018 11:05:13
--- NOTE | 2018-07-31 12:01 | PDOC PROGRESS REPORT ---
Subjective Progress Note for:: 07/31/18 Subjective:: This is a 73 yr old female with a PMH of atrial fibrillation, congestive heart failure, hypertension, COPD on 2 L oxygen, CPAP at night, and depression who presented with increasing SOB. She was also found to be in AFib with RVR and also treated for CHF congestion. 07/26: Chest x-ray shows bilateral pleural effusions. Per RN, she has been BIPAP- dependent for the past 2 days. She does desaturate to 80% off BIPAP. She reports of SOB and says she feels better with the BIPAP. She is currently in AFib, rate- controlled in the 80s. Will consult radiology for thoracentesis of persistent bilateral effusions despite being on IV diuresis. Will switch Eliquis to heparin drip. 07/27: Patient continues to be on BIPAP. She desaturated to 70% when she was repositioned and laid down for a bath. She quickly recovered to the high 90s after placing her in upright position and increasing FiO2 from 40 to 70%. She says her SOB has remained stable on the BIPAP. Denies chest pain. Anticipating thoracentesis tomorrow. Cardiology has also recommended central line placement for initiation of dobutamine infusion for her heart failure. 07/28: Patient had central line placed last night and was started on dobutamine drip by cardio. Bedside thoracentesis attempted by radiology. Unfortunately, patient sustained a large right sided pneumothorax. She is saturating well on BIPAP and says her SOB is about the same and has not worsened. Surgery is on the way to put in a chest tube. 07/29: She is complaining of pain on the chest tube site. She says her breathing is slightly better. Denies chest pain. Repeat chest x-ray shows minimal right sided pneumothrax and significant improvement of previous bilateral effusions. She is currently saturating well on nasal cannula. 07/30: She was a little confused this morning in that she thought she was going home today. She is oriented to person, place and knows the month and year. Denies worsening SOB. Denies chest pain. Chest x-ray this morning shows resolution of pneumothorax but reappearance of basilar infiltrates. Chest tube has been watersealed and surgery is planning to remove it tomorrow. 07/31: No acute event overnight. Surgery just removed her chest tube this morning and has ordered repeat CXR later today. Denies SOB or chest pain at the moment. She is AO x 4 this morning. Still on dobutamine at 2.5 mics. She has been off BIPAP and is saturating well on nasal cannula. Reason For Visit: ATRIAL FLUTTER Physical Exam Vital Signs: Temp Pulse Resp BP Pulse Ox 98.3 F 76 16 119/67 98 07/31/18 07:11 07/31/18 08:34 07/31/18 08:34 07/31/18 10:00 07/31/18 08:34 Pulse Oximeter Continuous Start: 07/29/18 13:05 Freq: Status: Active Protocol: Document 07/31/18 08:34 J (Rec: 07/31/18 08:36 J [email or web address]) Pulse Oximetry Assessment Oxygen Saturation (92-100) 98 Oxygen Delivery Method Bi-pap Fraction of Inspired Oxygen (FIO2) 45 Equipment Usage Equipment in Use Continuous Pulse Oximeter 24 Hour Charge Charge Now Continuous SpO2 Machine # 5 Intake & Output 07/30/18 07/31/18 08/01/18 06:59 06:59 06:59 Intake Total 501 432 Output Total 700 1010 Balance -199 -578 Weight 197 lb 1.492 oz 189 lb 9.561 oz General appearance: PRESENT: no acute distress, well-developed, well-nourished Head exam: PRESENT: atraumatic, normocephalic Eye exam: PRESENT: conjunctiva pink, EOMI, PERRLA. ABSENT: scleral icterus Ear exam: PRESENT: normal external ear exam Mouth exam: PRESENT: moist, tongue midline Neck exam: ABSENT: carotid bruit, JVD, lymphadenopathy, thyromegaly Respiratory exam: PRESENT: rales, rhonchi. ABSENT: wheezes Cardiovascular exam: PRESENT: irregular rhythm. ABSENT: diastolic murmur, rubs, systolic murmur Pulses: PRESENT: normal dorsalis pedis pul GI/Abdominal exam: PRESENT: normal bowel sounds, soft. ABSENT: distended, guarding, mass, organolmegaly, rebound, tenderness Rectal exam: PRESENT: deferred Neurological exam: PRESENT: alert, awake, oriented to person, oriented to place, oriented to time, oriented to situation, CN II-XII grossly intact. ABSENT: motor sensory deficit Results Laboratory Results: 07/30/18 15:55 07/30/18 15:55 07/30/18 07/30/18 15:55 15:55 WBC 8.1 RBC 2.88 L Hgb 8.5 L Hct 25.2 L MCV 87 MCH 29.5 MCHC 33.7 RDW 14.0 Plt Count 139 L Seg Neutrophils % Not Reportable Lymphocytes % Not Reportable Monocytes % Not Reportable Eosinophils % Not Reportable Basophils % Not Reportable Absolute Neutrophils Not Reportable Absolute Lymphocytes Not Reportable Absolute Monocytes Not Reportable Absolute Eosinophils Not Reportable Absolute Basophils Not Reportable Sodium 133.1 L Potassium 4.6 Chloride 100 Carbon Dioxide 29 Anion Gap 4 L BUN 26 H Creatinine 1.21 Est GFR ( Amer) 53 L Est GFR (Non-Af Amer) 44 L Glucose 87 Calcium 7.9 L Total Bilirubin 0.5 AST 50 H ALT 46 Alkaline Phosphatase 82 Total Protein 4.3 L Albumin 2.0 L 07/21/18 07/21/18 07/21/18 12:20 13:25 13:25 Creatine Kinase 67 63 CK-MB (CK-2) 1.99 Troponin I 0.094 NT-Pro-B Natriuret Pep 6620 H 07/21/18 07/21/18 07/22/18 19:05 19:05 01:00 Creatine Kinase 56 55 CK-MB (CK-2) Troponin I 0.094 NT-Pro-B Natriuret Pep 07/22/18 07/22/18 07/22/18 01:00 07:07 07:07 Creatine Kinase 53 CK-MB (CK-2) Troponin I 0.095 0.091 NT-Pro-B Natriuret Pep 07/22/18 07/23/18 07/23/18 07:07 23:52 23:52 Creatine Kinase 56 CK-MB (CK-2) 2.39 Troponin I 0.101 NT-Pro-B Natriuret Pep 6520 H 07/23/18 07/24/18 07/24/18 23:52 06:31 06:31 Creatine Kinase 93 CK-MB (CK-2) 2.89 Troponin I 0.115 NT-Pro-B Natriuret Pep 7130 H 07/24/18 07/24/18 07/24/18 11:47 11:47 18:27 Creatine Kinase 90 CK-MB (CK-2) 2.72 2.64 Troponin I 0.079 0.080 NT-Pro-B Natriuret Pep 07/24/18 07/24/18 07/25/18 18:27 18:44 00:35 Creatine Kinase Cancelled 105 CK-MB (CK-2) 2.59 Troponin I 0.071 NT-Pro-B Natriuret Pep 07/25/18 07/26/18 05:45 05:49 Creatine Kinase CK-MB (CK-2) Troponin I NT-Pro-B Natriuret Pep 8460 H 23749 H Impressions: Chest CT 07/21/18 12:31 IMPRESSION: 1. Bilateral pleural effusions with mild compressive atelectasis in the lower lobes. 2. Cardiomegaly. Minimal pericardial effusion. 3. Possible 3 cm left renal mass. Head CT 07/23/18 23:42 IMPRESSION: Mild atrophy and small vessel ischemic change TECHNICAL DOCUMENTATION: Quality ID # 436: Final reports with documentation of one or more dose reduction techniques (e.g., Automated exposure control, adjustment of the mA and/or kV according to patient size, use of iterative reconstruction technique) copyright 2011 [employer]- All Rights Reserved Chest Ultrasound 07/28/18 10:58 IMPRESSION: Unsuccessful portable thoracentesis under ultrasound guidance. We were unable to obtain fluid from the right pleural space. Patient developed an immediate large pneumothorax. Hospital surgeon notified, chest tube to be placed shortly. Chest X-Ray 07/31/18 06:00 IMPRESSION: No change. No pneumothorax. Assessment and Plan - Diagnosis (1) Acute on chronic respiratory failure with hypoxemia Is this a current diagnosis for this admission?: Yes (2) Pneumothorax, right Is this a current diagnosis for this admission?: Yes Plan: 07/28: Patient sustained a large right sided pneumothorax during attempt for thoracentesis. S/P Chest tube placement by surgery. 07/30: Chest x-ray this morning shows resolution of pneumothorax but reappearance of basilar infiltrates. Chest tube has been watersealed and surgery is planning to remove it tomorrow. 07/31: Surgery just removed her chest tube this morning and has ordered repeat CXR later today. (3) Acute exacerbation of CHF (congestive heart failure) Is this a current diagnosis for this admission?: Yes Plan: Recent echo shows and EF of 25%. 07/28: Started on dobutamine drip last night. 07/29: Improving. Repeat chest x-ray shows significant improvement of pleural effusions. 07/30: Chest x-ray this morning shows resolution of pneumothorax but reappearance of basilar infiltrates. 07/31: Still on dobutamine at 2.5 mics. Continue IV Lasix. Creatinine a little eleavted at 1.2 today. Will continue to monitor renal function. (4) Pleural effusion Is this a current diagnosis for this admission?: Yes Plan: 07/26: Bilateral effusions likely related to acute congestive heart failure. Will consult radiology for thoracentesis of persistent bilateral effusions despite being on IV diuresis. Will switch Eliquis to heparin to drip. 07/28: Thoracentesis was unsuccessful. Patient sustained pneumothorax during attempt. 07/29: Improving. Repeat chest x-ray shows significant improvement of pleural effusions. 07/30: Chest x-ray this morning shows resolution of pneumothorax but reappearance of basilar infiltrates. Continue IV Lasix. 07/31: Improving. (5) Atrial fibrillation with RVR Is this a current diagnosis for this admission?: Yes Plan: 07/26: Currently rate-controlled. Will switch Eliquis to heparin to drip for anticipated thoracentesis. 07/30: Continue heparin drip for for now. (6) Hypothyroidism Is this a current diagnosis for this admission?: Yes Plan: On synthroid. TSH has improved from 50 to 15. - Time Time Spent with patient: 25-34 minutes
--- NOTE | 2018-07-31 12:39 | RADIOLOGY REPORT (SQ) ---
EXAM DESCRIPTION: CHEST SINGLE VIEW COMPLETED DATE/TIME: 07/31/2018 12:07 pm REASON FOR STUDY: s/p chest tube removal COMPARISON: CT chest 07/21/2018 Chest films 07/29/2018, 07/30/2018, 07/31/2018 EXAM PARAMETERS: NUMBER OF VIEWS: One view. TECHNIQUE: Single frontal radiographic view of the chest acquired. RADIATION DOSE: NA LIMITATIONS: None. FINDINGS: LUNGS AND PLEURA: Trace right apical pneumothorax post right chest tube removal. Minimal left retrocardiac consolidation and trace pleural effusion persists, unchanged. MEDIASTINUM AND HILAR STRUCTURES: No masses. Contour normal. HEART AND VASCULAR STRUCTURES: Stable moderate cardiomegaly BONES: No acute findings. HARDWARE: Left jugular central line tip superior vena cava OTHER: No other significant finding. IMPRESSION: Trace right apical pneumothorax post right chest tube removal. Report discussed with Dr Benton, 1220 hours 07/31/2018 TECHNICAL DOCUMENTATION: JOB ID: [id number] [employer]- All Rights Reserved Reading location - IP/workstation name: [email or web address]
[2018-07-31 13:30] LABS: HEMATOCRIT 24.4 % (36.0-47.0); HEMOGLOBIN 8.4 g/dL (12.0-15.5); MEAN CORPUSCULAR HEMOGLOBIN 29.9 pg (27.0-33.4); MEAN CORPUSCULAR HGB CONC 34.3 g/dL (32.0-36.0); MEAN CORPUSCULAR VOLUME 87 fl (80-97); PLATELET COUNT 134 10^3/uL (150-450); RED BLOOD COUNT 2.81 10^6/uL (3.72-5.28); RED CELL DISTRIBUTION WIDTH 13.9 % (11.5-14.0); WHITE BLOOD COUNT 10.1 10^3/uL (4.0-10.5)
--- NOTE | 2018-07-31 17:21 | PDOC PROGRESS REPORT ---
Subjective Subjective:: This is a 73-year-old female status post right-sided chest tube insertion for a pneumothorax. The pneumothorax occurred after a thoracentesis. The patient is more appropriate today. She denies shortness of breath, although she does report pain in the right lateral thorax (in the area of the chest tube). She denies nausea or vomiting. She denies abdominal pain. She is currently wearing her BiPAP. Reason For Visit: ATRIAL FLUTTER Physical Exam Vital Signs: Temp Pulse Resp BP Pulse Ox 98.3 F 72 20 122/73 100 07/31/18 15:10 07/31/18 15:10 07/31/18 15:10 07/31/18 16:00 07/31/18 15:10 Pulse Oximeter Continuous Start: 07/29/18 13:05 Freq: Status: Active Protocol: Document 07/31/18 12:46 JDR (Rec: 07/31/18 12:47 JDR [id number]) Pulse Oximetry Assessment Oxygen Saturation (92-100) 96 Oxygen Flow Rate (L/min) 5 Oxygen Delivery Method Nasal Cannula Equipment Usage Equipment in Use Continuous SpO2 Machine # 5 Intake & Output 07/30/18 07/31/18 08/01/18 06:59 06:59 06:59 Intake Total 501 432 95 Output Total 700 1010 450 Balance -199 -578 -355 Weight 89.4 kg 86 kg General appearance: PRESENT: no acute distress, cooperative Head exam: PRESENT: atraumatic, normocephalic Eye exam: PRESENT: EOMI, PERRLA. ABSENT: scleral icterus Mouth exam: PRESENT: moist, neck supple Neck exam: ABSENT: meningismus, tenderness, thyromegaly, tracheal deviation Respiratory exam: PRESENT: rales, rhonchi, other - BiPAP in place. Right chest tube to waterseal. No air leak. Minimal output overnight.. ABSENT: chest wall tenderness Pulses: PRESENT: normal radial pulses Vascular exam: PRESENT: normal capillary refill, pallor GI/Abdominal exam: PRESENT: soft. ABSENT: distended, guarding, rigid, tenderness Rectal exam: PRESENT: deferred Extremities exam: ABSENT: clubbing Musculoskeletal exam: ABSENT: deformity Neurological exam: PRESENT: alert, awake Psychiatric exam: ABSENT: agitated, anxious Skin exam: ABSENT: cyanosis, erythema, jaundice Results Laboratory Results: 07/31/18 12:36 07/30/18 15:55 07/31/18 12:36 WBC 10.1 RBC 2.81 L Hgb 8.4 L Hct 24.4 L MCV 87 MCH 29.9 MCHC 34.3 RDW 13.9 Plt Count 134 L 07/21/18 07/21/18 07/21/18 12:20 13:25 13:25 Creatine Kinase 67 63 CK-MB (CK-2) 1.99 Troponin I 0.094 NT-Pro-B Natriuret Pep 6620 H 07/21/18 07/21/18 07/22/18 19:05 19:05 01:00 Creatine Kinase 56 55 CK-MB (CK-2) Troponin I 0.094 NT-Pro-B Natriuret Pep 07/22/18 07/22/18 07/22/18 01:00 07:07 07:07 Creatine Kinase 53 CK-MB (CK-2) Troponin I 0.095 0.091 NT-Pro-B Natriuret Pep 07/22/18 07/23/18 07/23/18 07:07 23:52 23:52 Creatine Kinase 56 CK-MB (CK-2) 2.39 Troponin I 0.101 NT-Pro-B Natriuret Pep 6520 H 07/23/18 07/24/18 07/24/18 23:52 06:31 06:31 Creatine Kinase 93 CK-MB (CK-2) 2.89 Troponin I 0.115 NT-Pro-B Natriuret Pep 7130 H 07/24/18 07/24/18 07/24/18 11:47 11:47 18:27 Creatine Kinase 90 CK-MB (CK-2) 2.72 2.64 Troponin I 0.079 0.080 NT-Pro-B Natriuret Pep 07/24/18 07/24/18 07/25/18 18:27 18:44 00:35 Creatine Kinase Cancelled 105 CK-MB (CK-2) 2.59 Troponin I 0.071 NT-Pro-B Natriuret Pep 07/25/18 07/26/18 05:45 05:49 Creatine Kinase CK-MB (CK-2) Troponin I NT-Pro-B Natriuret Pep 8460 H 86854 H Impressions: Chest CT 03/21/19 12:31 IMPRESSION: 1. Bilateral pleural effusions with mild compressive atelectasis in the lower lobes. 2. Cardiomegaly. Minimal pericardial effusion. 3. Possible 3 cm left renal mass. Head CT 07/23/18 23:42 IMPRESSION: Mild atrophy and small vessel ischemic change TECHNICAL DOCUMENTATION: Quality ID # 436: Final reports with documentation of one or more dose reduction techniques (e.g., Automated exposure control, adjustment of the mA and/or kV according to patient size, use of iterative reconstruction technique) copyright 2011 [employer]- All Rights Reserved Chest Ultrasound 07/28/18 10:58 IMPRESSION: Unsuccessful portable thoracentesis under ultrasound guidance. We were unable to obtain fluid from the right pleural space. Patient developed an immediate large pneumothorax. Hospital surgeon notified, chest tube to be placed shortly. Chest X-Ray 07/31/18 12:00 IMPRESSION: Trace right apical pneumothorax post right chest tube removal. Report discussed with Dr Benton, 1220 hours 07/31/2018 Assessment & Plan - Diagnosis (1) Pneumothorax on right Is this a current diagnosis for this admission?: Yes - Plan Summary Plan Summary: This is a 73-year-old female with a right-sided pneumothorax. Her pneumothorax appears to have resolved. I reviewed her chest x-ray from this morning. There is no air leak on the chest tube today. I will remove the chest tube at bedside today. Repeat chest x-ray at 12:00 noon today. Repeat chest x-ray tomorrow morning.
[2018-07-31] MEDS: APIXABAN 2.5 MG TABLET PO SCH (21:41)
[2018-07-31] MEDS: MONTELUKAST SODIUM 10 MG TABLET PO SCH (21:41)
[2018-07-31] MEDS: ATORVASTATIN CALCIUM 80 MG TABLET PO SCH (21:41)
[2018-07-31] MEDS: MELATONIN 3 MG TABLET PO SCH (21:44)
--- NOTE | 2018-07-31 22:03 | Progress Note ---
Provider Note Provider Note: CARDIOLOGY PROGRESS NOTE by Dr. Kristen Davis on 07/31/2018. SUBJECTIVE: The patient states that shortness of breath is much improved and she at rest is no shortness of breath. A chest tube has been removed. There is still a trace/small apical pneumothorax on the right side. The patient denies any shortness of breath at present. There is no chest pain or discomfort. She continues to be in persistent atrial flutter with a controlled ventricular response. There is no chest pain or discomfort there is no PND. There is no leg edema. She has orthopnea. She has cough which is not very often, and is nonproductive. There is no bleeding on Eliquis. There is no TIA CVA symptoms PHYSICAL EXAMINATION: The patient appears to be chronically ill. She is in no acute distress. Selected Entries 07/31/18 12:00 Temperature 97.9 F Temperature Oral Source Pulse Rate 53 L Respiratory 20 Rate Blood Pressure 112/75 Blood Pressure 113/67 [Right Calf] Blood Pressure 82 Mean [Right Calf] Blood Pressure Supine Position [Right Calf] O2 Sat by Pulse 100 Oximetry Oxygen Delivery Nasal Cannula Method ( includes room air) Oxygen Flow 4 Rate HEAD: Atraumatic, normocephalic. EYES: Pupils equal round and reactive to light, extraocular movements intact, sclera anicteric, conjunctiva are normal. ENT: TMs normal, nares patent, oropharynx clear without exudates. Moist mucous membranes. NECK: Normal range of motion, supple without lymphadenopathy or JVD. Carotids are equal there is no bruits. There is no thyromegaly. There is no accessory muscles of respiration in use. Trachea central LUNGS: There is diminished air entry and prolonged expiration. There is occasional scattered rhonchi. There are no wet rales of CHF. There is diminished breath sounds in the bases with bilateral dry crackles. On palpation there is no chest wall tenderness. HEART: S1-S2 is heard. S1 is of variable intensity. There is no S3 gallop. There is no S4 gallop. There is systolic murmur left sternal border and apex without radiation. There is no rub.. ABDOMEN: Soft, nontender, normoactive bowel sounds. There is no hepatosplenic megaly no guarding, no rebound. No masses appreciated. EXTREMITIES: Normal range of motion, no pitting or edema. No clubbing or cyanosis. Femorals are well felt. There is no femoral bruits. Leg pulses are well felt. There is no DVT or cellulitis. There is no calf tenderness NEUROLOGICAL: Cranial nerves II through XII grossly intact. Normal speech, normal gait. The patient is awake alert oriented x3 with no focal deficits. PSYCH: Normal mood, normal affect. The patient judgment and insight are intact SKIN: Warm, Dry, normal turgor, no rashes or lesions noted. There is no petechia or ecchymosis 07/31/18 12:36 WBC 10.1 RBC 2.81 L Hgb 8.4 L Hct 24.4 L MCV 87 MCH 29.9 MCHC 34.3 RDW 13.9 Plt Count 134 L CHEST X-ray: Shows a small right apical pneumothorax after the chest tube has been removed. The surgeon is made aware of this by the radiologist. Labs- All tests 24 hr 07/31/18 07/31/18 07/31/18 05:04 12:36 12:36 WBC 10.1 RBC 2.81 L Hgb 8.4 L Hct 24.4 L MCV 87 MCH 29.9 MCHC 34.3 RDW 13.9 Plt Count 134 L APTT 47.1 H > 235.0 H* 07/31/18 20:30 WBC RBC Hgb Hct MCV MCH MCHC RDW Plt Count APTT 68.1 H IMPRESSION/RECOMMENDATION: 1. Paroxysmal atrial fibrillation. At present patient is in atrial flutter. We will continue the patient on Cardizem CD 180 mg p.o. every 12 hours, and increase as tolerated. We will restart the patien's Eliquis, when deemed safe by surgeon. 2. Acute exacerbation of COPD: Improving continue respiratory treatments and oxygen. 3. CARDIOMYOPATHY: We will stop dobutamine drip. Continue Lasix and ARB and beta-blockers. 4. Status post attempted right-sided thoracentesis, which ended up with the patient having right-sided pneumothorax. She is status post large bore chest tube to relieve the pneumothorax. At present the pneumothorax is almost completely resolved.. The right chest tube is been removed, there is a residual small right apical pneumothorax. 5. Diabetes mellitus type 2 [id number] 6. Hypothyroidism: Note thyroid stimulating hormones a very high, suggesting hypothyroidism. Would recommend increasing the patient's thyroid replacement. Will increase the patient's thyroxine to 125 mcg p.o. daily, and watch heart rate response to the patient's increased dose of levothyroxine. [Note in May the patient was admitted with iatrogenic hyper thyroidism.] 7. History of GERD: At present stable. Continue proton pump inhibitors. 8. History of depression: Continue antidepressants. 9. History of lymphoma: At present seems to be in remission 10. History of acute on chronic respiratory failure. Medications reviewed. Medications adjusted. Medical decision making is still of high complexity. Management plan discussed with the attending physician on the case. Note 40 minutes spent on this patient with more than 50% of time spent in direct patient care. We will follow
[2018-08-01] MEDS: LEVOTHYROXINE SODIUM 0.05 MG TABLET PO SCH (05:07)
[2018-08-01] MEDS: LEVALBUTEROL HCL NEB 1.25 MG/3 ML AMPUL NEB PRN ×2 (08:13→20:19)
[2018-08-01] MEDS: BUDESONIDE NEB 0.5 MG/2 ML AMPUL NEB SCH ×2 (08:13→20:19)
[2018-08-01 09:49] LABS: ABSOLUTE MONOCYTES (AUTO) 0.3 10^3/uL (0.1-1.4); ABSOLUTE NEUT (AUTO) 6.9 10^3/uL (1.7-8.2); BASOPHILS % (AUTO) 0.1 % (0-2); EOSINOPHILS % (AUTO) 0.2 % (0-6); HEMATOCRIT 21.8 % (36.0-47.0); LYMPHOCYTES % (AUTO) 11.6 % (13-45); MEAN CORPUSCULAR HEMOGLOBIN 29.5 pg (27.0-33.4); MEAN CORPUSCULAR VOLUME 87 fl (80-97); MONOCYTES % (AUTO) 4.2 % (3-13); PLATELET COUNT 131 10^3/uL (150-450); RED CELL DISTRIBUTION WIDTH 13.6 % (11.5-14.0); SEGMENTED NEUTROPHILS % (AUTO) 83.9 % (42-78); TOTAL CELLS COUNTED % (AUTO) 100 %; WHITE BLOOD COUNT 8.2 10^3/uL (4.0-10.5)
[2018-08-01 09:57] LABS: HEMOGLOBIN 7.4 g/dL (12.0-15.5)
[2018-08-01] MEDS: LISINOPRIL 5 MG TABLET PO SCH ×2 (10:03→22:59)
[2018-08-01] MEDS: FAMOTIDINE 20 MG TABLET PO SCH ×2 (10:03→22:59)
[2018-08-01] MEDS: BUSPIRONE HCL 10 MG TABLET PO SCH ×2 (10:04→23:00)
[2018-08-01] MEDS: ESCITALOPRAM OXALATE 10 MG TABLET PO SCH (10:04)
[2018-08-01] MEDS: GUAIFENESIN 600 MG TABLET.SA PO SCH ×2 (10:04→22:59)
[2018-08-01] MEDS: MULTIVITAMIN TABLET PO SCH (10:04)
[2018-08-01] MEDS: METOPROLOL TARTRATE 25 MG TABLET PO SCH ×2 (10:04→22:58)
[2018-08-01] MEDS: DULOXETINE HCL 30 MG CAPSULE.DR PO SCH (10:04)
[2018-08-01] MEDS: MAGNESIUM OXIDE 400 MG TABLET PO SCH ×2 (10:04→16:59)
[2018-08-01] MEDS: DIGOXIN INJ 0.5 MG/2 ML AMPULE IV SCH (10:05)
[2018-08-01] MEDS: FUROSEMIDE INJ/PF 20 MG/2 ML SDV IV SCH ×2 (10:05→22:57)
[2018-08-01] MEDS: LACTOBACILLUS ACIDOPHILUS 250 MG TAB PO SCH (10:05)
[2018-08-01] MEDS: POTASSIUM CHLORIDE 20 MEQ/15 ML UDCUP PO SCH (10:05)
[2018-08-01] MEDS: METHYLPREDNISOLONE INJ 125 MG/2 ML SDV IV SCH (10:05)
[2018-08-01] MEDS: FLUTICASONE/VILANTEROL 100-25 MCG/DOSE IH SCH (10:06)
--- NOTE | 2018-08-01 10:09 | RADIOLOGY REPORT (SQ) ---
EXAM DESCRIPTION: CHEST SINGLE VIEW COMPLETED DATE/TIME: 08/01/2018 9:57 am REASON FOR STUDY: eval PTX COMPARISON: CT chest 07/21/2018 Chest films 07/30/2018, 07/31/2018 EXAM PARAMETERS: NUMBER OF VIEWS: One view. TECHNIQUE: Single frontal radiographic view of the chest acquired. RADIATION DOSE: NA LIMITATIONS: None. FINDINGS: LUNGS AND PLEURA: Minimal persistent interstitial opacities in the right and left mid lung , improved compared to previous studies. No pleural effusions. No pneumothorax. No dense consolidation worrisome for pneumonia. MEDIASTINUM AND HILAR STRUCTURES: No masses. Contour normal. HEART AND VASCULAR STRUCTURES: Stable moderate cardiomegaly BONES: No acute findings. HARDWARE: Left-sided triple-lumen catheter tip in the superior vena cava OTHER: No other significant finding. IMPRESSION: No pneumothorax. Resolving bilateral interstitial infiltrates compared to previous studies TECHNICAL DOCUMENTATION: JOB ID: [id number] [employer]- All Rights Reserved Reading location - IP/workstation name: [email or web address]
[2018-08-01 10:15] LABS: CHLORIDE 104 mmol/L (98-107)
[2018-08-01] MEDS: DOCUSATE SODIUM 100 MG CAPSULE PO SCH ×2 (10:28→22:58)
[2018-08-01] MEDS: NICOTINE 21 MG/24 HR PATCH.TD24 TD SCH (10:28)
[2018-08-01] MEDS: APIXABAN 2.5 MG TABLET PO SCH (10:32)
[2018-08-01 10:47] LABS: ANION GAP 4 (5-19); BLOOD UREA NITROGEN 28 mg/dL (7-20); CALCIUM 8.4 mg/dL (8.4-10.2); CARBON DIOXIDE 29 mmol/L (22-30); GLUCOSE 81 mg/dL (75-110); POTASSIUM 4.2 mmol/L (3.6-5.0); SODIUM 136.5 mmol/L (137-145)
--- NOTE | 2018-08-01 12:09 | PDOC PROGRESS REPORT ---
Subjective Progress Note for:: 08/01/18 Subjective:: This is a 73 yr old female with a PMH of atrial fibrillation, congestive heart failure, hypertension, COPD on 2 L oxygen, CPAP at night, and depression who presented with increasing SOB. She was also found to be in AFib with RVR and also treated for CHF congestion. 07/26: Chest x-ray shows bilateral pleural effusions. Per RN, she has been BIPAP- dependent for the past 2 days. She does desaturate to 80% off BIPAP. She reports of SOB and says she feels better with the BIPAP. She is currently in AFib, rate- controlled in the 80s. Will consult radiology for thoracentesis of persistent bilateral effusions despite being on IV diuresis. Will switch Eliquis to heparin drip. 07/27: Patient continues to be on BIPAP. She desaturated to 70% when she was repositioned and laid down for a bath. She quickly recovered to the high 90s after placing her in upright position and increasing FiO2 from 40 to 70%. She says her SOB has remained stable on the BIPAP. Denies chest pain. Anticipating thoracentesis tomorrow. Cardiology has also recommended central line placement for initiation of dobutamine infusion for her heart failure. 07/28: Patient had central line placed last night and was started on dobutamine drip by cardio. Bedside thoracentesis attempted by radiology. Unfortunately, patient sustained a large right sided pneumothorax. She is saturating well on BIPAP and says her SOB is about the same and has not worsened. Surgery is on the way to put in a chest tube. 07/29: She is complaining of pain on the chest tube site. She says her breathing is slightly better. Denies chest pain. Repeat chest x-ray shows minimal right sided pneumothrax and significant improvement of previous bilateral effusions. She is currently saturating well on nasal cannula. 07/30: She was a little confused this morning in that she thought she was going home today. She is oriented to person, place and knows the month and year. Denies worsening SOB. Denies chest pain. Chest x-ray this morning shows resolution of pneumothorax but reappearance of basilar infiltrates. Chest tube has been watersealed and surgery is planning to remove it tomorrow. 07/31: Surgery just removed her chest tube this morning and has ordered repeat CXR later today. Denies SOB or chest pain at the moment. She is AO x 4 this morning. Still on dobutamine at 2.5 mics. She has been off BIPAP and is saturat ing well on nasal cannula. 08/01: No acute event overnight. She continues to feel better and continues to clinically improve. She is AO x 4. She has not required the BIPP and is doing well on nasal cannula. Denies SOB or chest pain this morning. Repeat CXR does not show recurrence of pneumothorax and shows significant improvement of infiltrated amf pleural effusion. Dobutamine drip was discontinued last night. However, her hemoglobin has been trending down and is down to 7.4 today. There are no obvious clinical signs of bleeding. She had 2 bowel movements which were non-bloody. Urine was clear. No hematemesis or hemoptysis. Will pursue a CT of the abdomen, pelvis and chest to rule out any occult source of bleeding. Hold Eliquis. Reason For Visit: ATRIAL FLUTTER Physical Exam Vital Signs: Temp Pulse Resp BP Pulse Ox 97.8 F 80 16 131/80 H 100 08/01/18 07:08 08/01/18 08:25 08/01/18 08:13 08/01/18 08:25 08/01/18 08:13 Pulse Oximeter Continuous Start: 07/29/18 13:05 Freq: Status: Active Protocol: Document 07/31/18 16:00 [facility] (Rec: 07/31/18 17:26 [facility] [email or web address]) Pulse Oximetry Assessment Oxygen Saturation (92-100) 96 Oxygen Flow Rate (L/min) 5 Oxygen Delivery Method Nasal Cannula Equipment Usage Equipment in Use Continuous SpO2 Machine # 5 Intake & Output 07/31/18 08/01/18 08/02/18 06:59 06:59 06:59 Intake Total 432 445 Output Total 1010 1225 Balance -578 -780 Weight 189 lb 9.561 oz 187 lb 9.814 oz General appearance: PRESENT: no acute distress, well-developed, well-nourished Head exam: PRESENT: atraumatic, normocephalic Eye exam: PRESENT: conjunctiva pink, EOMI, PERRLA. ABSENT: scleral icterus Ear exam: PRESENT: normal external ear exam Mouth exam: PRESENT: moist, tongue midline Neck exam: ABSENT: carotid bruit, JVD, lymphadenopathy, thyromegaly Respiratory exam: PRESENT: clear to auscultation glory. ABSENT: rales, rhonchi, wheezes Cardiovascular exam: PRESENT: RRR. ABSENT: diastolic murmur, rubs, systolic murmur Pulses: PRESENT: normal dorsalis pedis pul GI/Abdominal exam: PRESENT: normal bowel sounds, soft. ABSENT: distended, guarding, mass, organolmegaly, rebound, tenderness Rectal exam: PRESENT: deferred Neurological exam: PRESENT: alert, awake, oriented to person, oriented to place, oriented to time, oriented to situation, CN II-XII grossly intact. ABSENT: motor sensory deficit Results Laboratory Results: 08/01/18 05:31 08/01/18 05:31 07/31/18 08/01/18 08/01/18 12:36 05:31 05:31 WBC 10.1 8.2 RBC 2.81 L 2.50 L Hgb 8.4 L 7.4 L Hct 24.4 L 21.8 L MCV 87 87 MCH 29.9 29.5 MCHC 34.3 34.0 RDW 13.9 13.6 Plt Count 134 L 131 L Seg Neutrophils % 83.9 H Lymphocytes % 11.6 L Monocytes % 4.2 Eosinophils % 0.2 Basophils % 0.1 Absolute Neutrophils 6.9 Absolute Lymphocytes 1.0 Absolute Monocytes 0.3 Absolute Eosinophils 0.0 Absolute Basophils 0.0 Sodium 136.5 L Potassium 4.2 Chloride 104 Carbon Dioxide 29 Anion Gap 4 L BUN 28 H Creatinine 1.30 H Est GFR ( Amer) 49 L Est GFR (Non-Af Amer) 40 L Glucose 81 Calcium 8.4 07/21/18 07/21/18 07/21/18 12:20 13:25 13:25 Creatine Kinase 67 63 CK-MB (CK-2) 1.99 Troponin I 0.094 NT-Pro-B Natriuret Pep 6620 H 07/21/18 07/21/18 07/22/18 19:05 19:05 01:00 Creatine Kinase 56 55 CK-MB (CK-2) Troponin I 0.094 NT-Pro-B Natriuret Pep 07/22/18 07/22/18 07/22/18 01:00 07:07 07:07 Creatine Kinase 53 CK-MB (CK-2) Troponin I 0.095 0.091 NT-Pro-B Natriuret Pep 07/22/18 07/23/18 07/23/18 07:07 23:52 23:52 Creatine Kinase 56 CK-MB (CK-2) 2.39 Troponin I 0.101 NT-Pro-B Natriuret Pep 6520 H 07/23/18 07/24/18 07/24/18 23:52 06:31 06:31 Creatine Kinase 93 CK-MB (CK-2) 2.89 Troponin I 0.115 NT-Pro-B Natriuret Pep 7130 H 07/24/18 07/24/18 07/24/18 11:47 11:47 18:27 Creatine Kinase 90 CK-MB (CK-2) 2.72 2.64 Troponin I 0.079 0.080 NT-Pro-B Natriuret Pep 07/24/18 07/24/18 07/25/18 18:27 18:44 00:35 Creatine Kinase Cancelled 105 CK-MB (CK-2) 2.59 Troponin I 0.071 NT-Pro-B Natriuret Pep 07/25/18 07/26/18 05:45 05:49 Creatine Kinase CK-MB (CK-2) Troponin I NT-Pro-B Natriuret Pep 8460 H 69250 H Impressions: Chest CT 07/21/18 12:31 IMPRESSION: 1. Bilateral pleural effusions with mild compressive atelectasis in the lower lobes. 2. Cardiomegaly. Minimal pericardial effusion. 3. Possible 3 cm left renal mass. Head CT 07/23/18 23:42 IMPRESSION: Mild atrophy and small vessel ischemic change TECHNICAL DOCUMENTATION: Quality ID # 436: Final reports with documentation of one or more dose reduction techniques (e.g., Automated exposure control, adjustment of the mA and/or kV according to patient size, use of iterative reconstruction technique) copyright 2011 [employer]- All Rights Reserved Chest Ultrasound 07/28/18 10:58 IMPRESSION: Unsuccessful portable thoracentesis under ultrasound guidance. We were unable to obtain fluid from the right pleural space. Patient developed an immediate large pneumothorax. Hospital surgeon notified, chest tube to be placed shortly. Chest X-Ray 08/01/18 06:00 IMPRESSION: No pneumothorax. Resolving bilateral interstitial infiltrates compared to previous studies Assessment and Plan - Diagnosis (1) Acute on chronic respiratory failure with hypoxemia Is this a current diagnosis for this admission?: Yes Plan: Secondary to CHF exacerbation with bilateral pleural effusions and new iatrogenic right sided pneumothorax. 07/29: Improving. Off BIPAP today and is doing well on NC. 08/01: Continues to do well on nasal cannula. (2) Pneumothorax, right Is this a current diagnosis for this admission?: Yes Plan: 07/28: Patient sustained a large right sided pneumothorax during attempt for thoracentesis. S/P Chest tube placement by surgery. 07/30: Chest x-ray this morning shows resolution of pneumothorax but reappearance of basilar infiltrates. Chest tube has been watersealed and surgery is planning to remove it tomorrow. 07/31: Surgery just removed her chest tube this morning and has ordered repeat CXR later today. 08/01: Resolved. (3) Acute exacerbation of CHF (congestive heart failure) Is this a current diagnosis for this admission?: Yes Plan: Recent echo shows and EF of 25%. 07/28: Started on dobutamine drip last night. 07/29: Improving. Repeat chest x-ray shows significant improvement of pleural effusions. 07/30: Chest x-ray this morning shows resolution of pneumothorax but reappearance of basilar infiltrates. 07/31: Still on dobutamine at 2.5 mics. Continue IV Lasix. Creatinine a little elevated at 1.2 today. Will continue to monitor renal function. 08/01: Resolving. Off dobutamine drip. Pleural effusions are resolving. Creatinine at 1.3 this morning. Decrease Lasix to 20 mg daily. (4) Pleural effusion Is this a current diagnosis for this admission?: Yes Plan: 07/26: Bilateral effusions likely related to acute congestive heart failure. Will consult radiology for thoracentesis of persistent bilateral effusions despite being on IV diuresis. Will switch Eliquis to heparin to drip. 07/28: Thoracentesis was unsuccessful. Patient sustained pneumothorax during attempt. 07/29: Improving. Repeat chest x-ray shows significant improvement of pleural effusions. 07/30: Chest x-ray this morning shows resolution of pneumothorax but reappearance of basilar infiltrates. Continue IV Lasix. 08/01: Resolving. Off dobutamine drip. Pleural effusions are resolving. Creatinine at 1.3 this morning. Decrease Lasix to 20 mg daily. (5) Atrial fibrillation with RVR Is this a current diagnosis for this admission?: Yes Plan: 07/26: Currently rate-controlled. Will switch Eliquis to heparin to drip for anticipated thoracentesis. 08/01: Hold anticoagulation for now due to acute anemia. (6) Hypothyroidism Is this a current diagnosis for this admission?: Yes Plan: On synthroid. TSH has improved from 50 to 15. (7) Acute on chronic anemia Is this a current diagnosis for this admission?: Yes Plan: However, her hemoglobin has been trending down and is down to 7.4 today. There are no obvious clinical signs of bleeding. She had 2 bowel movements which were non-bloody. Urine was clear. No hematemesis or hemoptysis. Will pursue a CT of the abdomen, pelvis and chest to rule out any occult source of bleeding. Hold Eliquis. Will continue to monitor H&H. - Time Time Spent with patient: 25-34 minutes
--- NOTE | 2018-08-01 13:43 | RADIOLOGY REPORT (SQ) ---
EXAM DESCRIPTION: CT ABD/PELVIS NO ORAL OR IV COMPLETED DATE/TIME: 08/01/2018 1:32 pm REASON FOR STUDY: low hemaglobin COMPARISON: Chest radiograph, 08/01/2018, CT chest, 07/21/2018 TECHNIQUE: CT scan of the abdomen and pelvis performed without intravenous or oral contrast. Images reviewed with lung, soft tissue, and bone windows. Reconstructed coronal and sagittal MPR images revi ewed. All images stored on PACS. All CT scanners at this facility use dose modulation, iterative reconstruction, and/or weight based d osing when appropriate to reduce radiation dose to as low as reasonably achievable (ALARA). [facility]: Dose Right [facility]: CareDose [facility]: Dose Right [facility]: Teradose 4D [facility]: [employer] RADIATION DOSE: CT Rad equipment meets quality standard of care and radiation dose reduction techniq ues were employed. CTDIvol: 20.8 mGy. DLP: 1121 mGy-cm.mGy. LIMITATIONS: None. FINDINGS: LOWER CHEST: There are small bilateral pleural effusions and associated atelectasis or con solidation with extensive, somewhat geographic ground-glass and consolidative opacity of the included bilateral lung bases. Cardiomegaly with coronary artery calcifications and a small pericardial effu luma. NON-CONTRASTED LIVER, SPLEEN, ADRENALS: Evaluation limited by lack of IV contrast. No identified sign ificant masses. PANCREAS: No masses. No peripancreatic inflammatory changes. GALLBLADDER: No identified stones by CT criteria. No inflammatory changes to suggest cholecystitis. RIGHT KIDNEY AND URETER: No suspicious masses. Assessment limited by lack of IV contrast. No signif icant calcifications. No hydronephrosis or hydroureter. LEFT KIDNEY AND URETER: No suspicious masses. Assessment limited by lack of IV contrast. No signifi cant calcifications. No hydronephrosis or hydroureter. 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 Infrarenal right IVC filter. No retroperitoneal masses or adenopathy. BOWEL AND PERITONEAL CAVITY: No obvious masses or inflammatory changes. No free fluid. Postoperative findings of gastric bypass. APPENDIX: Not clearly visualized. PELVIS, BLADDER, AND ABDOMINAL WALL:Severe anasarca. There is a large, heterogeneous attenuation mas slike lesion of the inferior left rectus musculature in sheath measuring approximately 10.6 x 5.8 x 5 .3 cm (series 2, image 61, series 602, image 61). Vanegas catheter in the bladder. BONES: No significant findings. OTHER: No other significant finding. IMPRESSION: 1. There is a large, heterogeneous attenuation masslike lesion of the inferior left rect us musculature in sheath measuring approximately 10.6 x 5.8 x 5.3 cm, likely a hematoma in the stated setting of low hemoglobin. Recommend follow-up contrast-enhanced CT or MRI to ensure stability or r esolution and exclude underlying solid mass such as sarcoma. 2. Anasarca and pleural effusions. 3. Extensive bibasilar ground-glass and consolidative airspace disease, better evaluated by dedicate d chest imaging. 4. 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 Recommend follow-up CT angiogram at 1 year to ensure stability. COMMENT: Quality ID # 436: Final reports with documentation of one or more dose reduction techniques (e.g., Automated exposure control, adjustment of the mA and/or kV according to patient size, use of iterative reconstruction technique) TECHNICAL DOCUMENTATION: JOB ID: [id number] [employer]- All Rights Reserved Reading location - IP/workstation name: [email or web address]
[2018-08-01] MEDS ORDERED: NORMAL SALINE 250 ML IV PRN ×3 (15:09→15:10)
[2018-08-01 15:49] LABS: HEMATOCRIT 22.4 % (36.0-47.0); MEAN CORPUSCULAR HEMOGLOBIN 29.5 pg (27.0-33.4); MEAN CORPUSCULAR HGB CONC 33.7 g/dL (32.0-36.0); MEAN CORPUSCULAR VOLUME 88 fl (80-97); PLATELET COUNT 149 10^3/uL (150-450); RED BLOOD COUNT 2.56 10^6/uL (3.72-5.28); RED CELL DISTRIBUTION WIDTH 13.8 % (11.5-14.0); WHITE BLOOD COUNT 8.8 10^3/uL (4.0-10.5)
[2018-08-01 15:55] LABS: HEMOGLOBIN 7.6 g/dL (12.0-15.5)
[2018-08-01] MEDS ORDERED: PROTAMINE SULFATE INJ/PF 50 MG/5 ML SDV IV ONE (16:00)
--- NOTE | 2018-08-01 16:44 | PDOC PROGRESS REPORT ---
Subjective Subjective:: No acute distress Reason For Visit: ATRIAL FLUTTER Patient diagnosed with rectus sheath hematoma via CT scan; no significant drop in hemoglobin. Physical Exam Vital Signs: Temp Pulse Resp BP Pulse Ox 97.8 F 83 16 131/80 H 100 08/01/18 07:08 08/01/18 14:00 08/01/18 08:13 08/01/18 08:25 08/01/18 08:13 Pulse Oximeter Continuous Start: 07/29/18 13:05 Freq: Status: Active Protocol: Document 07/31/18 16:00 J (Rec: 07/31/18 17:[address] [facility] [email or web address]) Pulse Oximetry Assessment Oxygen Saturation (92-100) 96 Oxygen Flow Rate (L/min) 5 Oxygen Delivery Method Nasal Cannula Equipment Usage Equipment in Use Continuous SpO2 Machine # 5 Intake & Output 07/31/18 08/01/18 08/02/18 06:59 06:59 06:59 Intake Total 432 445 360 Output Total 1010 1225 400 Balance -578 -780 -40 Weight 86 kg 85.1 kg General appearance: PRESENT: no acute distress Respiratory exam: PRESENT: other - Chest tube removed; dressing intact Results Laboratory Results: 08/01/18 15:40 08/01/18 05:31 08/01/18 08/01/18 08/01/18 05:31 05:31 15:30 WBC 8.2 RBC 2.50 L Hgb 7.4 L Hct 21.8 L MCV 87 MCH 29.5 MCHC 34.0 RDW 13.6 Plt Count 131 L Seg Neutrophils % 83.9 H Lymphocytes % 11.6 L Monocytes % 4.2 Eosinophils % 0.2 Basophils % 0.1 Absolute Neutrophils 6.9 Absolute Lymphocytes 1.0 Absolute Monocytes 0.3 Absolute Eosinophils 0.0 Absolute Basophils 0.0 Sodium 136.5 L Potassium 4.2 Chloride 104 Carbon Dioxide 29 Anion Gap 4 L BUN 28 H Creatinine 1.30 H Est GFR ( Amer) 49 L Est GFR (Non-Af Amer) 40 L Glucose 81 Calcium 8.4 Blood Type O NEGATIVE Antibody Screen NEGATIVE 08/01/18 15:40 WBC 8.8 RBC 2.56 L Hgb 7.6 L Hct 22.4 L MCV 88 MCH 29.5 MCHC 33.7 RDW 13.8 Plt Count 149 L Seg Neutrophils % Lymphocytes % Monocytes % Eosinophils % Basophils % Absolute Neutrophils Absolute Lymphocytes Absolute Monocytes Absolute Eosinophils Absolute Basophils Sodium Potassium Chloride Carbon Dioxide Anion Gap BUN Creatinine Est GFR ( Amer) Est GFR (Non-Af Amer) Glucose Calcium Blood Type Antibody Screen 07/21/18 07/21/18 07/21/18 12:20 13:25 13:25 Creatine Kinase 67 63 CK-MB (CK-2) 1.99 Troponin I 0.094 NT-Pro-B Natriuret Pep 6620 H 07/21/18 07/21/18 07/22/18 19:05 19:05 01:00 Creatine Kinase 56 55 CK-MB (CK-2) Troponin I 0.094 NT-Pro-B Natriuret Pep 07/22/18 07/22/18 07/22/18 01:00 07:07 07:07 Creatine Kinase 53 CK-MB (CK-2) Troponin I 0.095 0.091 NT-Pro-B Natriuret Pep 07/22/18 07/23/18 07/23/18 07:07 23:52 23:52 Creatine Kinase 56 CK-MB (CK-2) 2.39 Troponin I 0.101 NT-Pro-B Natriuret Pep 6520 H 07/23/18 07/24/18 07/24/18 23:52 06:31 06:31 Creatine Kinase 93 CK-MB (CK-2) 2.89 Troponin I 0.115 NT-Pro-B Natriuret Pep 7130 H 07/24/18 07/24/18 07/24/18 11:47 11:47 18:27 Creatine Kinase 90 CK-MB (CK-2) 2.72 2.64 Troponin I 0.079 0.080 NT-Pro-B Natriuret Pep 07/24/18 07/24/18 07/25/18 18:27 18:44 00:35 Creatine Kinase Cancelled 105 CK-MB (CK-2) 2.59 Troponin I 0.071 NT-Pro-B Natriuret Pep 07/25/18 07/26/18 05:45 05:49 Creatine Kinase CK-MB (CK-2) Troponin I NT-Pro-B Natriuret Pep 8460 H 09731 H Impressions: Chest CT 07/21/18 12:31 IMPRESSION: 1. Bilateral pleural effusions with mild compressive atelectasis in the lower lobes. 2. Cardiomegaly. Minimal pericardial effusion. 3. Possible 3 cm left renal mass. Head CT 07/23/18 23:42 IMPRESSION: Mild atrophy and small vessel ischemic change TECHNICAL DOCUMENTATION: Quality ID # 436: Final reports with documentation of one or more dose reduction techniques (e.g., Automated exposure control, adjustment of the mA and/or kV according to patient size, use of iterative reconstruction technique) copyright 2011 [employer]- All Rights Reserved Chest Ultrasound 07/28/18 10:58 IMPRESSION: Unsuccessful portable thoracentesis under ultrasound guidance. We were unable to obtain fluid from the right pleural space. Patient developed an immediate large pneumothorax. Hospital surgeon notified, chest tube to be placed shortly. Abdomen/Pelvis CT 08/01/18 00:00 IMPRESSION: 1. There is a large, heterogeneous attenuation masslike lesion of the inferior left rectus musculature in sheath measuring approximately 10.6 x 5.8 x 5.3 cm, likely a hematoma in the stated setting of low hemoglobin. Recommend follow-up contrast-enhanced CT or MRI to ensure stability or resoluti on and exclude underlying solid mass such as sarcoma. 2. Anasarca and pleural effusions. 3. Extensive bibasilar ground-glass and consolidative airspace disease, better evaluated by dedicated chest imaging. 4. 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 Recommend follow-up CT angiogram at 1 year to ensure stability. Chest X-Ray 08/01/18 06:00 IMPRESSION: No pneumothorax. Resolving bilateral interstitial infiltrates compared to previous studies Assessment & Plan - Diagnosis (1) Pneumothorax on right Is this a current diagnosis for this admission?: Yes Plan: Assessment: Status post chest tube removal with no evidence of pneumothorax. Recommendations: 1. May remove dressing in 3 days 2. Surgery will sign off; reconsult if needed
--- NOTE | 2018-08-01 19:15 | Progress Note ---
Provider Note Provider Note: A CT of the abdomen pelvis due to dropping Hb with no obvious signs of bleeding. CT came back remarkable for left rectus sheath hematoma. Heparin drip discontinued. She will also be given Protamine. She is hemodynamically stable and comfortable. She will be given a unit of pRBC and FFP. Will continue to cycle H&H. She denies abdominal pain. No abdominal tenderness. Patient and patient's daughter/DPOA updated about results and plan of care.
[2018-08-01] MEDS: ATORVASTATIN CALCIUM 80 MG TABLET PO SCH (22:57)
[2018-08-01] MEDS: MONTELUKAST SODIUM 10 MG TABLET PO SCH (23:00)
[2018-08-01] MEDS: MELATONIN 3 MG TABLET PO SCH (23:00)
--- NOTE | 2018-08-01 23:34 | Progress Note ---
Provider Note Provider Note: CARDIOLOGY PROGRESS NOTE by Dr. Kristne Davis on 08/01/2018. SUBJECTIVE: The patient continues to be in atrial flutter with controlled ventricular response. She denies any chest pain. She has chronic orthopnea, but no shortness of breath. There is no PND or chest pain or discomfort. Her leg edema is much improved there is only trace pedal edema. Note that the patient's hemoglobin dropped to 7.4. A CT scan of the abdomen showed a left rectus sheath hematoma. Hence the patient's heparin drip has been stopped and the patient has been given protamine to reverse the anticoagulation effect of heparin. Hence the patient is not a candidate for chronic anticoagulation therapy. There is no TIA CVA symptoms. PHYSICAL EXAMINATION: The patient appears to be chronically ill. She is in no acute distress. She is well-groomed. Selected Entries 08/01/18 08/01/18 08/01/18 07:08 08:00 08:13 Temperature 97.8 F Temperature Oral Source Pulse Rate 80 Respiratory 16 16 Rate Respiratory Normal Effort Non-Labored Blood Pressure 131/62 H 131/76 H Blood Pressure 85 Mean BP Location Left Leg BP Position Supine O2 Sat by Pulse 80 L 100 Oximetry Fraction of 3 Inspired Oxygen (FIO2) Oxygen Flow 4.00 4.00 Rate HEAD: Atraumatic, normocephalic. EYES: Pupils equal round and reactive to light, extraocular movements intact, sclera anicteric, conjunctiva are normal. ENT: TMs normal, nares patent, oropharynx clear without exudates. Moist mucous membranes. NECK: Normal range of motion, supple without lymphadenopathy or JVD. Carotids are equal there is no bruits. There is no thyromegaly. There is no accessory muscles of respiration in use. Trachea central LUNGS: There is diminished air entry and prolonged expiration. There is occasional scattered rhonchi. There are no wet rales of CHF. There is diminished breath sounds in the bases with bilateral dry crackles. On palpation there is no chest wall tenderness. HEART: S1-S2 is heard. S1 is of variable intensity. There is no S3 gallop. There is no S4 gallop. There is systolic murmur left sternal border and apex without radiation. There is no rub.. ABDOMEN: Soft, nontender, normoactive bowel sounds. There is no hepatosplenic megaly no guarding, no rebound. No masses appreciated. EXTREMITIES: Normal range of motion, no pitting or edema. No clubbing or cyanosis. Femorals are well felt. There is no femoral bruits. Leg pulses are well felt. There is no DVT or cellulitis. There is no calf tenderness NEUROLOGICAL: Cranial nerves II through XII grossly intact. Normal speech, normal gait. The patient is awake alert oriented x3 with no focal deficits. PSYCH: Normal mood, normal affect. The patient judgment and insight are intact SKIN: Warm, Dry, normal turgor, no rashes or lesions noted. There is no petechia or ecchymosis Labs- All tests 24 hr 08/01/18 08/01/18 08/01/18 05:31 05:31 05:31 WBC 8.2 RBC 2.50 L Hgb 7.4 L Hct 21.8 L MCV 87 MCH 29.5 MCHC 34.0 RDW 13.6 Plt Count 131 L Seg Neutrophils % 83.9 H Lymphocytes % 11.6 L Monocytes % 4.2 Eosinophils % 0.2 Basophils % 0.1 Absolute Neutrophils 6.9 Absolute Lymphocytes 1.0 Absolute Monocytes 0.3 Absolute Eosinophils 0.0 Absolute Basophils 0.0 APTT 64.3 H Sodium 136.5 L Potassium 4.2 Chloride 104 Carbon Dioxide 29 Anion Gap 4 L BUN 28 H Creatinine 1.30 H Est GFR ( Amer) 49 L Est GFR (Non-Af Amer) 40 L Glucose 81 Calcium 8.4 Blood Type Blood Type Confirm Antibody Screen Crossmatch 08/01/18 08/01/18 08/01/18 15:30 15:40 15:40 WBC 8.8 RBC 2.56 L Hgb 7.6 L Hct 22.4 L MCV 88 MCH 29.5 MCHC 33.7 RDW 13.8 Plt Count 149 L Seg Neutrophils % Lymphocytes % Monocytes % Eosinophils % Basophils % Absolute Neutrophils Absolute Lymphocytes Absolute Monocytes Absolute Eosinophils Absolute Basophils APTT Sodium Potassium Chloride Carbon Dioxide Anion Gap BUN Creatinine Est GFR ( Amer) Est GFR (Non-Af Amer) Glucose Calcium Blood Type O NEGATIVE Blood Type Confirm O NEGATIVE Antibody Screen NEGATIVE Crossmatch See Detail Chest X-Ray 07/21/18 11:44 IMPRESSION: Pleural effusions. Asymmetric edema or pneumonia. Chest CT 07/21/18 12:31 IMPRESSION: 1. Bilateral pleural effusions with mild compressive atelectasis in the lower lobes. 2. Cardiomegaly. Minimal pericardial effusion. 3. Possible 3 cm left renal mass. Head CT 07/23/18 23:42 IMPRESSION: Mild atrophy and small vessel ischemic change TECHNICAL DOCUMENTATION: Quality ID # 436: Final reports with documentation of one or more dose reduction techniques (e.g., Automated exposure control, adjustment of the mA and/or kV according to patient size, use of iterative reconstruction technique) copyright 2011 [employer]- All Rights Reserved Chest X-Ray 07/24/18 00:00 IMPRESSION: Bilateral pleural effusions, right greater than left. Chest X-Ray 07/27/18 00:00 IMPRESSION: Central venous access catheter placed via left IJ approach. Catheter tip at superior vena cava. No pneumothorax. Increased bilateral basilar airspace opacities and pleural effusions. Chest X-Ray 07/28/18 00:00 IMPRESSION: About 50% right pneumothorax post unsuccessful thoracentesis attempt. Report was called to the hospitalist surgeon who will place a large bore right chest tube shortly. Chest X-Ray 07/28/18 00:00 IMPRESSION: Interval insertion of a large caliber right chest tube with resolution of the right pneumothorax. Persistent vascular congestion. Persistent basilar opacities and small effusions. Chest Ultrasound 07/28/18 10:58 IMPRESSION: Unsuccessful portable thoracentesis under ultrasound guidance. We were unable to obtain fluid from the right pleural space. Patient developed an immediate large pneumothorax. Hospital surgeon notified, chest tube to be placed shortly. Chest X-Ray 07/29/18 00:00 IMPRESSION: There is a minimal right-sided pneumothorax, slightly decreased compared to prior examination with right-sided chest tube in position. There is significantly improved aeration of the bilateral lung bases. Unchanged cardio megaly. Chest X-Ray 07/30/18 07:00 IMPRESSION: No pneumothorax. Right large bore chest tube in place. Stable cardiomegaly and bibasilar infiltrates Chest X-Ray 07/31/18 06:00 IMPRESSION: No change. No pneumothorax. Chest X-Ray 07/31/18 12:00 IMPRESSION: Trace right apical pneumothorax post right chest tube removal. Report discussed with Dr Benton, 1220 hours 07/31/2018 Abdomen/Pelvis CT 08/01/18 00:00 IMPRESSION: 1. There is a large, heterogeneous attenuation masslike lesion of the inferior left rectus musculature in sheath measuring approximately 10.6 x 5.8 x 5.3 cm, likely a hematoma in the stated setting of low hemoglobin. Recommend follow-up contrast-enhanced CT or MRI to ensure stability or resolution and exclude underlying solid mass such as sarcoma. 2. Anasarca and pleural effusions. 3. Extensive bibasilar ground-glass and consolidative airspace disease, better evaluated by dedicated chest imaging. 4. 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 Recommend follow-up CT angiogram at 1 year to ensure stability. Chest X-Ray 08/01/18 06:00 IMPRESSION: No pneumothorax. Resolving bilateral interstitial infiltrates compared to previous studies IMPRESSION/RECOMMENDATION: 1. History of paroxysmal atrial fibrillation. At present patient is in chronic atrial flutter. We will continue the patient on Cardizem CD 180 mg p.o. every 12 hours, and increase as tolerated. Note with the patient rectus sheath hematoma/retroperitoneal bleed, she is not a candidate for chronic anticoagulant therapy. Protamine given to reverse the anticoagulation effect of IV heparin. Will not restart the patient on Eliquis. 2. Acute exacerbation of COPD: Improving continue respiratory treatments and oxygen. 3. CARDIOMYOPATHY: We will stop dobutamine drip. Continue Lasix and ARB and beta-blockers. 4. Status post attempted right-sided thoracentesis, which ended up with the patient having right-sided pneumothorax. She is status post large bore chest tube to relieve the pneumothorax. At present the pneumothorax is almost completely resolved.. The right chest tube is been removed, there is a residual small right apical pneumothorax. 5. Diabetes mellitus type 2 [id number] 6. Hypothyroidism: Note thyroid stimulating hormones a very high, suggesting hypothyroidism. Would recommend increasing the patient's thyroid replacement. Will increase the patient's thyroxine to 125 mcg p.o. daily, and watch heart rate response to the patient's increased dose of levothyroxine. [Note in May the patient was admitted with iatrogenic hyper thyroidism.] 7. History of GERD: At present stable. Continue proton pump inhibitors. 8. History of depression: Continue antidepressants. 9. History of lymphoma: At present seems to be in remission 10. Rectus sheath hematoma secondary to retroperitoneal bleed. Hence this is definite contraindication for chronic anticoagulation. Medications reviewed. Medications adjusted. Medical decision making is still of high complexity. Management plan discussed with the attending physician on the case. Note 40 minutes spent on this patient with more than 50% of time spent in direct patient care. We will follow
[2018-08-02 05:17] LABS: ABSOLUTE MONOCYTES (AUTO) 0.3 10^3/uL (0.1-1.4); ABSOLUTE NEUT (AUTO) 7.4 10^3/uL (1.7-8.2); BASOPHILS % (AUTO) 0.4 % (0-2); EOSINOPHILS % (AUTO) 0.3 % (0-6); HEMOGLOBIN 8.3 g/dL (12.0-15.5); LYMPHOCYTES % (AUTO) 11.5 % (13-45); MEAN CORPUSCULAR HGB CONC 34.7 g/dL (32.0-36.0); MEAN CORPUSCULAR VOLUME 86 fl (80-97); MONOCYTES % (AUTO) 3.8 % (3-13); PLATELET COUNT 140 10^3/uL (150-450); RED BLOOD COUNT 2.78 10^6/uL (3.72-5.28); TOTAL CELLS COUNTED % (AUTO) 100 %; WHITE BLOOD COUNT 8.8 10^3/uL (4.0-10.5)
[2018-08-02] MEDS: LEVOTHYROXINE SODIUM 0.05 MG TABLET PO SCH (05:21)
[2018-08-02 05:40] LABS: BLOOD UREA NITROGEN 26 mg/dL (7-20); CALCIUM 8.4 mg/dL (8.4-10.2); CARBON DIOXIDE 34 mmol/L (22-30); CHLORIDE 100 mmol/L (98-107); POTASSIUM 4.1 mmol/L (3.6-5.0); SODIUM 135.6 mmol/L (137-145)
[2018-08-02 05:46] LABS: GLUCOSE 63 mg/dL (75-110)
[2018-08-02 05:49] LABS: ANION GAP < -0 (5-19)
[2018-08-02] MEDS: BUDESONIDE NEB 0.5 MG/2 ML AMPUL NEB SCH ×2 (08:58→20:05)
[2018-08-02] MEDS: LEVALBUTEROL HCL NEB 1.25 MG/3 ML AMPUL NEB PRN (08:58)
--- NOTE | 2018-08-02 09:12 | RADIOLOGY REPORT (SQ) ---
EXAM DESCRIPTION: CT CHEST WITHOUT COMPLETED DATE/TIME: 08/02/2018 8:25 am REASON FOR STUDY: reassess effusion,infiltrates,pneumothorax COMPARISON: 07/21/2018 TECHNIQUE: CT scan performed of the chest without intravenous contrast. Images reviewed with lung, soft tissue and bone windows. Reconstructed coronal and sagittal MPR images reviewed. All images st ored on PACS. All CT scanners at this facility use dose modulation, iterative reconstruction, and/or weight based d osing when appropriate to reduce radiation dose to as low as reasonably achievable (ALARA). [facility]: Dose Right [facility]: CareDose [facility]: Dose Right [facility]: Teradose 4D [facility]: Smart Nephosity RADIATION DOSE: CT Rad equipment meets quality standard of care and radiation dose reduction techniq ues were employed. CTDIvol: 11.9 mGy. DLP: 439 mGy-cm. LIMITATIONS: No technical limitations. FINDINGS: LUNGS AND PLEURA: Interval worsening in the appearance of the lungs since the prior exami nation. Multifocal new diffuse patchy confluent areas of ground-glass consolidation in the lungs. M oderate to large right pleural effusion, unchanged finding. Mild to moderate left pleural effusion, basically unchanged. No pneumothorax. The central airways are clear. HILAR AND MEDIASTINAL STRUCTURES: No significant interval changes. HEART AND VASCULAR STRUCTURES: Cardiomegaly. Coronary artery calcifications. Small pericardial eff usion, stable finding. UPPER ABDOMEN: Stable appearing 1.5 cm splenic artery aneurysm. Prior gastric bypass surgery. THYR OID AND OTHER SOFT TISSUES: No masses. No adenopathy. And cholecystectomy. BONES: The osseous structures are stable in appearance. HARDWARE: Interval placement of left subclavian central line with the tip in the region of the super ior vena cava. OTHER: No other significant findings. IMPRESSION: 1. Interval worsening in the appearance of the lungs since the prior examination dated 07/21/2018. New extensive bilateral multifocal patchy confluent areas of ground-glass consolidation i n the lungs, may represent pneumonia, possibly edema. 2. Stable moderate to large right pleural effusion. Mild to moderate left pleural effusion, unchang ed finding. 3. Interval placement of left subclavian central line with the tip in the region of the superior jose g a cava. 4. Additional stable findings as above. TECHNICAL DOCUMENTATION: JOB ID: [id number] Quality ID # 436: Final reports with documentation of one or more dose reduction techniques (e.g., Au tomated exposure control, adjustment of the mA and/or kV according to patient size, use of iterative reconstruction technique) 2010 [employer]- All Rights Reserved Reading location - IP/workstation name: [email or web address]
[2018-08-02] MEDS: LACTOBACILLUS ACIDOPHILUS 250 MG TAB PO SCH (10:29)
[2018-08-02] MEDS: GUAIFENESIN 600 MG TABLET.SA PO SCH ×2 (10:29→21:52)
[2018-08-02] MEDS: METHYLPREDNISOLONE INJ 125 MG/2 ML SDV IV SCH (10:29)
[2018-08-02] MEDS: MAGNESIUM OXIDE 400 MG TABLET PO SCH ×2 (10:29→18:02)
[2018-08-02] MEDS: ESCITALOPRAM OXALATE 10 MG TABLET PO SCH (10:29)
[2018-08-02] MEDS: FAMOTIDINE 20 MG TABLET PO SCH ×2 (10:29→21:52)
[2018-08-02] MEDS: DOCUSATE SODIUM 100 MG CAPSULE PO SCH ×2 (10:30→21:53)
[2018-08-02] MEDS: NICOTINE 21 MG/24 HR PATCH.TD24 TD SCH (10:30)
[2018-08-02] MEDS: MULTIVITAMIN TABLET PO SCH (10:31)
[2018-08-02] MEDS: METOPROLOL TARTRATE 25 MG TABLET PO SCH ×2 (10:31→21:52)
[2018-08-02] MEDS: DIGOXIN INJ 0.5 MG/2 ML AMPULE IV SCH (10:31)
[2018-08-02] MEDS: LISINOPRIL 5 MG TABLET PO SCH ×2 (10:31→21:52)
[2018-08-02] MEDS: DULOXETINE HCL 30 MG CAPSULE.DR PO SCH (10:31)
[2018-08-02] MEDS: POTASSIUM CHLORIDE 20 MEQ/15 ML UDCUP PO SCH (10:32)
[2018-08-02] MEDS: FUROSEMIDE INJ/PF 20 MG/2 ML SDV IV SCH ×2 (10:32→21:53)
[2018-08-02] MEDS: FLUTICASONE/VILANTEROL 100-25 MCG/DOSE IH SCH (10:33)
[2018-08-02] MEDS: BUSPIRONE HCL 10 MG TABLET PO SCH ×2 (10:38→21:51)
--- NOTE | 2018-08-02 18:34 | PDOC PROGRESS REPORT ---
Subjective Progress Note for:: 08/02/18 Subjective:: No adverse events overnight. No new complaints. Vital signs been stable. Oxygen saturations have been good on 4-5 L per nasal cannula. No abdominal pain. No shortness of breath. No chest pain. Reason For Visit: ATRIAL FLUTTER Physical Exam Vital Signs: Temp Pulse Resp BP Pulse Ox 98.6 F 91 16 110/74 100 08/02/18 15:03 08/02/18 15:03 08/02/18 15:03 08/02/18 15:03 08/02/18 15:03 Pulse Oximeter Continuous Start: 07/29/18 13:05 Freq: Status: Active Protocol: Document 08/02/18 00:17 LDA (Rec: 08/02/18 01:19 LDA [email or web address]) Pulse Oximetry Assessment Oxygen Saturation (92-100) 98 Oxygen Flow Rate (L/min) 3 Oxygen Delivery Method Nasal Cannula Fraction of Inspired Oxygen (FIO2) 32 Equipment Usage Equipment in Use Continuous Pulse Oximeter 24 Hour Charge Charge Now Continuous SpO2 Machine # 5 Intake & Output 08/01/18 08/02/18 08/03/18 06:59 06:59 06:59 Intake Total 445 1497 605 Output Total 1225 1400 950 Balance -780 97 -345 Weight 85.1 kg 81.9 kg General appearance: PRESENT: no acute distress, well-developed, well-nourished Respiratory exam: PRESENT: clear to auscultation glory. ABSENT: rales, rhonchi, wheezes Cardiovascular exam: PRESENT: RRR. ABSENT: diastolic murmur, rubs, systolic murmur Pulses: PRESENT: normal dorsalis pedis pul GI/Abdominal exam: PRESENT: normal bowel sounds, soft. ABSENT: distended, guarding, mass, organolmegaly, rebound, tenderness Neurological exam: PRESENT: alert, awake, oriented to person, oriented to place, oriented to time, oriented to situation Results Laboratory Results: 08/02/18 04:55 08/02/18 04:55 08/01/18 08/02/18 08/02/18 15:30 04:55 04:55 WBC 8.8 RBC 2.78 L Hgb 8.3 L Hct 24.0 L MCV 86 MCH 30.0 MCHC 34.7 RDW 14.0 Plt Count 140 L Seg Neutrophils % 84.0 H Lymphocytes % 11.5 L Monocytes % 3.8 Eosinophils % 0.3 Basophils % 0.4 Absolute Neutrophils 7.4 Absolute Lymphocytes 1.0 Absolute Monocytes 0.3 Absolute Eosinophils 0.0 Absolute Basophils 0.0 Sodium 135.6 L Potassium 4.1 Chloride 100 Carbon Dioxide 34 H Anion Gap < -0 L BUN 26 H Creatinine 0.97 Est GFR ( Amer) > 60 Est GFR (Non-Af Amer) 56 L Glucose 63 L Calcium 8.4 Blood Type O NEGATIVE Antibody Screen NEGATIVE 07/21/18 07/21/18 07/21/18 12:20 13:25 13:25 Creatine Kinase 67 63 CK-MB (CK-2) 1.99 Troponin I 0.094 NT-Pro-B Natriuret Pep 6620 H 07/21/18 07/21/18 07/22/18 19:05 19:05 01:00 Creatine Kinase 56 55 CK-MB (CK-2) Troponin I 0.094 NT-Pro-B Natriuret Pep 07/22/18 07/22/18 07/22/18 01:00 07:07 07:07 Creatine Kinase 53 CK-MB (CK-2) Troponin I 0.095 0.091 NT-Pro-B Natriuret Pep 07/22/18 07/23/18 07/23/18 07:07 23:52 23:52 Creatine Kinase 56 CK-MB (CK-2) 2.39 Troponin I 0.101 NT-Pro-B Natriuret Pep 6520 H 07/23/18 07/24/18 07/24/18 23:52 06:31 06:31 Creatine Kinase 93 CK-MB (CK-2) 2.89 Troponin I 0.115 NT-Pro-B Natriuret Pep 7130 H 07/24/18 07/24/18 07/24/18 11:47 11:47 18:27 Creatine Kinase 90 CK-MB (CK-2) 2.72 2.64 Troponin I 0.079 0.080 NT-Pro-B Natriuret Pep 07/24/18 07/24/18 07/25/18 18:27 18:44 00:35 Creatine Kinase Cancelled 105 CK-MB (CK-2) 2.59 Troponin I 0.071 NT-Pro-B Natriuret Pep 07/25/18 07/26/18 05:45 05:49 Creatine Kinase CK-MB (CK-2) Troponin I NT-Pro-B Natriuret Pep 8460 H 22661 H Impressions: Head CT 07/23/18 23:42 IMPRESSION: Mild atrophy and small vessel ischemic change TECHNICAL DOCUMENTATION: Quality ID # 436: Final reports with documentation of one or more dose reduction techniques (e.g., Automated exposure control, adjustment of the mA and/or kV according to patient size, use of iterative reconstruction technique) copyright 2011 [employer]- All Rights Reserved Chest Ultrasound 07/28/18 10:58 IMPRESSION: Unsuccessful portable thoracentesis under ultrasound guidance. We were unable to obtain fluid from the right pleural space. Patient developed an immediate large pneumothorax. Hospital surgeon notified, chest tube to be placed shortly. Abdomen/Pelvis CT 08/01/18 00:00 IMPRESSION: 1. There is a large, heterogeneous attenuation masslike lesion of the inferior left rectus musculature in sheath measuring approximately 10.6 x 5.8 x 5.3 cm, likely a hematoma in the stated setting of low hemoglobin. Recommend follow-up contrast-enhanced CT or MRI to ensure stability or resolution and exclude underlying solid mass such as sarcoma. 2. Anasarca and pleural effusions. 3. Extensive bibasilar ground-glass and consolidative airspace disease, better evaluated by dedicated chest imaging. 4. 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 Recommend follow-up CT angiogram at 1 year to ensure stability. Chest X-Ray 08/01/18 06:00 IMPRESSION: No pneumothorax. Resolving bilateral interstitial infiltrates compared to previous studies Chest CT 08/02/18 07:00 IMPRESSION: 1. Interval worsening in the appearance of the lungs since the prior examination dated 07/21/2018. New extensive bilateral multifocal patchy confluent areas of ground-glass consolidation in the lungs, may represent pneumonia, possibly edema. 2. Stable moderate to large right pleural effusion. Mild to moderate left pleural effusion, unchanged finding. 3. Interval placement of left subclavian central line with the tip in the region of the superior vena cava. 4. Additional stable findings as above. Assessment and Plan - Diagnosis (1) Rectus sheath hematoma Qualifiers: Encounter type: initial encounter Qualified Code(s): S30.1XXA - Contusion of abdominal wall, initial encounter Is this a current diagnosis for this admission?: Yes Plan: Anticoagulation has been held. Monitoring her hemoglobin for stability. Cannot tell on visual inspection if it is expanding due to her body habitus. (2) Acute exacerbation of CHF (congestive heart failure) Qualifiers: Heart failure type: systolic Qualified Code(s): I50.23 - Acute on chronic systolic (congestive) heart failure Is this a current diagnosis for this admission?: Yes Plan: Resolved. Monitoring her volume status closely. Medically managed. Cardiology consulted. (3) Acute on chronic respiratory failure with hypoxemia Is this a current diagnosis for this admission?: Yes Plan: Resolved. Breathing is back to baseline. Monitoring for signs of decompensation. (4) Atrial fibrillation with RVR Is this a current diagnosis for this admission?: Yes Plan: Rate controlled with Cardizem. Anticoagulation being held for the reasons noted above. (5) Obesity (BMI 30-39.9) Is this a current diagnosis for this admission?: Yes Plan: Strongly encouraged lifestyle modification (6) Pneumothorax on right Is this a current diagnosis for this admission?: Yes Plan: Resolved - Time Time Spent with patient: 35 or more minutes - Plan Summary Plan Summary: If her hemoglobin hold stable, we might be able to discharge her in a day or 2.
[2018-08-02] MEDS: MELATONIN 3 MG TABLET PO SCH (21:51)
[2018-08-02] MEDS: ATORVASTATIN CALCIUM 80 MG TABLET PO SCH (21:52)
[2018-08-02] MEDS: MONTELUKAST SODIUM 10 MG TABLET PO SCH (21:52)
--- NOTE | 2018-08-02 23:31 | Progress Note ---
Provider Note Provider Note: CARDIOLOGY progress note by Dr. Kristen Davis on 08/02/2018. Subjective: The patient states that shortness of breath is much better. She continues to be in atrial flutter with a controlled ventricular response. There is no chest pain or discomfort. There is no shortness of breath. There is chronic orthopnea present but no PND. She does have mild leg edema. She does have some element of mild anasarca. There is no TIA CVA symptoms. The patient's hemoglobin is still low at 8.8. The patient denies any abdominal pain or flank pain. PHYSICAL EXAMINATION: The patient appears to be mildly obese. She is chronically ill she is well-groomed, but in no acute distress. Selected Entries 08/02/18 15:03 Temperature 98.6 F Temperature Oral Source Pulse Rate 91 Respiratory 16 Rate Blood Pressure 110/74 Blood Pressure 86 Mean BP Location Right Arm BP Position Supine O2 Sat by Pulse 100 Oximetry Oxygen Delivery Room Air Method HEAD: Atraumatic, normocephalic. EYES: Pupils equal round and reactive to light, extraocular movements intact, sclera anicteric, conjunctiva are normal. ENT: TMs normal, nares patent, oropharynx clear without exudates. Moist mucous membranes. NECK: Normal range of motion, supple without lymphadenopathy or JVD. Carotids are equal there is no bruits. There is no thyromegaly. There is no accessory muscles of respiration in use. Trachea central LUNGS: There is diminished air entry and prolonged expiration. There is occasional scattered rhonchi. There are no wet rales of CHF. There is diminished breath sounds in the bases with bilateral dry crackles. On palpation there is no chest wall tenderness. HEART: S1-S2 is heard. S1 is of variable intensity. There is no S3 gallop. There is no S4 gallop. There is systolic murmur left sternal border and apex without radiation. There is no rub.. ABDOMEN: Soft, nontender, normoactive bowel sounds. There is no hepatosplenic megaly no guarding, no rebound. No masses appreciated. EXTREMITIES: Normal range of motion, no pitting or edema. No clubbing or cyanosis. Femorals are well felt. There is no femoral bruits. Leg pulses are well felt. There is no DVT or cellulitis. There is no calf tenderness NEUROLOGICAL: Cranial nerves II through XII grossly intact. Normal speech, normal gait. The patient is awake alert oriented x3 with no focal deficits. PSYCH: Normal mood, normal affect. The patient judgment and insight are intact SKIN: Warm, Dry, normal turgor, no rashes or lesions noted. There is no petechia or ecchymosis Chest X-Ray 07/21/18 11:44 IMPRESSION: Pleural effusions. Asymmetric edema or pneumonia. Chest CT 07/21/18 12:31 IMPRESSION: 1. Bilateral pleural effusions with mild compressive atelectasis in the lower lobes. 2. Cardiomegaly. Minimal pericardial effusion. 3. Possible 3 cm left renal mass. Head CT 07/23/18 23:42 IMPRESSION: Mild atrophy and small vessel ischemic change TECHNICAL DOCUMENTATION: Quality ID # 436: Final reports with documentation of one or more dose reduction techniques (e.g., Automated exposure control, adjustment of the mA and/or kV according to patient size, use of iterative reconstruction technique) copyright 2011 [email or web address]- All Rights Reserved Chest X-Ray 07/24/18 00:00 IMPRESSION: Bilateral pleural effusions, right greater than left. Chest X-Ray 07/27/18 00:00 IMPRESSION: Central venous access catheter placed via left IJ approach. Catheter tip at superior vena cava. No pneumothorax. Increased bilateral basilar airspace opacities and pleural effusions. Chest X-Ray 07/28/18 00:00 IMPRESSION: About 50% right pneumothorax post unsuccessful thoracentesis attempt. Report was called to the hospitalist surgeon who will place a large bore right chest tube shortly. Chest X-Ray 07/28/18 00:00 IMPRESSION: Interval insertion of a large caliber right chest tube with r esolution of the right pneumothorax. Persistent vascular congestion. Persistent basilar opacities and small effusions. Chest Ultrasound 07/28/18 10:58 IMPRESSION: Unsuccessful portable thoracentesis under ultrasound guidance. We were unable to obtain fluid from the right pleural space. Patient developed an immediate large pneumothorax. Hospital surgeon notified, chest tube to be placed shortly. Chest X-Ray 07/29/18 00:00 IMPRESSION: There is a minimal right-sided pneumothorax, slightly decreased compared to prior examination with right-sided chest tube in position. There is significantly improved aeration of the bilateral lung bases. Unchanged cardiomegaly. Chest X-Ray 07/30/18 07:00 IMPRESSION: No pneumothorax. Right large bore chest tube in place. Stable cardiomegaly and bibasilar infiltrates Chest X-Ray 07/31/18 06:00 IMPRESSION: No change. No pneumothorax. Chest X-Ray 07/31/18 12:00 IMPRESSION: Trace right apical pneumothorax post right chest tube removal. Report discussed with Dr Benton, 1220 hours 07/31/2018 Abdomen/Pelvis CT 08/01/18 00:00 IMPRESSION: 1. There is a large, heterogeneous attenuation masslike lesion of the inferior left rectus musculature in sheath measuring approximately 10.6 x 5.8 x 5.3 cm, likely a hematoma in the stated setting of low hemoglobin. Recommend follow-up contrast-enhanced CT or MRI to ensure stability or resolution and exclude underlying solid mass such as sarcoma. 2. Anasarca and pleural effusions. 3. Extensive bibasilar ground-glass and consolidative airspace disease, better evaluated by dedicated chest imaging. 4. 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 Recommend follow-up CT angiogram at 1 year to ensure stability. Chest X-Ray 08/01/18 06:00 IMPRESSION: No pneumothorax. Resolving bilateral interstitial infiltrates compared to previous studies Chest CT 08/02/18 07:00 IMPRESSION: 1. Interval worsening in the appearance of the lungs since the prior examination dated 07/21/2018. New extensive bilateral multifocal patchy confluent areas of ground-glass consolidation in the lungs, may represent pneumonia, possibly edema. 2. Stable moderate to large right pleural effusion. Mild to moderate left pleural effusion, unchanged finding. 3. Interval placement of left subclavian central line with the tip in the region of the superior vena cava. 4. Additional stable findings as above. 08/02/18 08/02/18 08/02/18 04:55 04:55 06:02 WBC 8.8 RBC 2.78 L Hgb 8.3 L Hct 24.0 L MCV 86 MCH 30.0 MCHC 34.7 RDW 14.0 Plt Count 140 L Seg Neutrophils % 84.0 H Sodium 135.6 L Potassium 4.1 Chloride 100 Carbon Dioxide 34 H BUN 26 H Creatinine 0.97 Est GFR (Non-Af Amer) 56 L Glucose 63 L POC Glucose 78 Calcium 8.4 IMPRESSION/RECOMMENDATION: 1. History of paroxysmal atrial fibrillation. At present patient is in chronic atrial flutter. We will continue the patient on Cardizem CD 180 mg p.o. every 12 hours, and increase as tolerated. Note with the patient rectus sheath hematoma/retroperitoneal bleed, she is not a candidate for chronic anticoagulant therapy. Protamine given to reverse the anticoagulation effect of IV heparin. Will not restart the patient on Eliquis. 2. Acute exacerbation of COPD: Improving continue respiratory treatments and oxygen. 3. CARDIOMYOPATHY: We will stop dobutamine drip. Continue Lasix and ARB and beta-blockers. 4. Status post attempted right-sided thoracentesis, which ended up with the patient having right-sided pneumothorax. She is status post large bore chest tube to relieve the pneumothorax. At present the pneumothorax is almost completely resolved.. The right chest tube is been removed, there is a residual small right apical pneumothorax. 5. Diabetes mellitus type 2 [id number] 6. Hypothyroidism: Note thyroid stimulating hormones a very high, suggesting hypothyroidism. Would recommend increasing the patient's thyroid replacement. Will increase the patient's thyroxine to 125 mcg p.o. daily, and watch heart rate response to the patient's increased dose of levothyroxine. [Note in May the patient was admitted with iatrogenic hyper thyroidism.] 7. History of GERD: At present stable. Continue proton pump inhibitors. 8. History of depression: Continue antidepressants. 9. History of lymphoma: At present seems to be in remission 10. Rectus sheath hematoma secondary to retroperitoneal bleed. Hence this is definite contraindication for chronic anticoagulation. Medications reviewed. Medications adjusted. Medical decision making is still of high complexity. Management plan discussed with the attending physician on the case. Note 40 minutes spent on this patient with more than 50% of time spent in direct patient care. We will follow
[2018-08-03] MEDS: LEVOTHYROXINE SODIUM 0.05 MG TABLET PO SCH (06:09)
[2018-08-03] MEDS: BUDESONIDE NEB 0.5 MG/2 ML AMPUL NEB SCH ×2 (09:03→21:06)
[2018-08-03] MEDS: LEVALBUTEROL HCL NEB 1.25 MG/3 ML AMPUL NEB PRN (09:03)
[2018-08-03] MEDS: POTASSIUM CHLORIDE 20 MEQ/15 ML UDCUP PO SCH (10:07)
[2018-08-03] MEDS: GUAIFENESIN 600 MG TABLET.SA PO SCH ×2 (10:08→21:40)
[2018-08-03] MEDS: MULTIVITAMIN TABLET PO SCH (10:09)
[2018-08-03] MEDS: FAMOTIDINE 20 MG TABLET PO SCH ×2 (10:09→21:39)
[2018-08-03] MEDS: LACTOBACILLUS ACIDOPHILUS 250 MG TAB PO SCH (10:09)
[2018-08-03] MEDS: ESCITALOPRAM OXALATE 10 MG TABLET PO SCH (10:10)
[2018-08-03] MEDS: MAGNESIUM OXIDE 400 MG TABLET PO SCH ×2 (10:10→17:33)
[2018-08-03] MEDS: DULOXETINE HCL 30 MG CAPSULE.DR PO SCH (10:10)
[2018-08-03 10:11] LABS: HEMOGLOBIN 9.1 g/dL (12.0-15.5); MEAN CORPUSCULAR HEMOGLOBIN 29.2 pg (27.0-33.4); MEAN CORPUSCULAR HGB CONC 33.6 g/dL (32.0-36.0); MEAN CORPUSCULAR VOLUME 87 fl (80-97); PLATELET COUNT 141 10^3/uL (150-450); RED CELL DISTRIBUTION WIDTH 13.9 % (11.5-14.0); WHITE BLOOD COUNT 11.6 10^3/uL (4.0-10.5)
[2018-08-03] MEDS: BUSPIRONE HCL 10 MG TABLET PO SCH ×2 (10:11→21:40)
[2018-08-03] MEDS: FUROSEMIDE INJ/PF 20 MG/2 ML SDV IV SCH ×2 (10:12→21:25)
[2018-08-03] MEDS: METHYLPREDNISOLONE INJ 125 MG/2 ML SDV IV SCH (10:14)
[2018-08-03] MEDS: LISINOPRIL 5 MG TABLET PO SCH ×2 (10:14→21:30)
[2018-08-03] MEDS: METOPROLOL TARTRATE 25 MG TABLET PO SCH ×2 (10:15→21:27)
[2018-08-03] MEDS: DIGOXIN INJ 0.5 MG/2 ML AMPULE IV SCH (10:15)
[2018-08-03] MEDS: FLUTICASONE/VILANTEROL 100-25 MCG/DOSE IH SCH (10:17)
[2018-08-03] MEDS: NICOTINE 21 MG/24 HR PATCH.TD24 TD SCH (10:18)
[2018-08-03] MEDS: DOCUSATE SODIUM 100 MG CAPSULE PO SCH ×2 (10:19→21:39)
[2018-08-03] MEDS ORDERED: DOBUTAMINE HCL/D5W 500 MG/250 ML RTUINJ IV PRN (11:51)
--- NOTE | 2018-08-03 16:47 | PDOC PROGRESS REPORT ---
Subjective Progress Note for:: 08/03/18 Subjective:: No adverse events overnight. No new complaints. Vital signs been stable. No abdominal pain. Breathing feels like it is at baseline. Reason For Visit: ATRIAL FLUTTER Physical Exam Vital Signs: Temp Pulse Resp BP Pulse Ox 98.2 F 78 20 100/50 L 84 L 08/03/18 10:55 08/03/18 16:00 08/03/18 10:55 08/03/18 16:00 08/03/18 10:55 Pulse Oximeter Continuous Start: 07/29/18 13:05 Freq: Status: Active Protocol: Document 08/02/18 00:17 LDA (Rec: 08/02/18 01:19 LDA [id number]) Pulse Oximetry Assessment Oxygen Saturation (92-100) 98 Oxygen Flow Rate (L/min) 3 Oxygen Delivery Method Nasal Cannula Fraction of Inspired Oxygen (FIO2) 32 Equipment Usage Equipment in Use Continuous Pulse Oximeter 24 Hour Charge Charge Now Continuous SpO2 Machine # 5 Intake & Output 08/02/18 08/03/18 08/04/18 06:59 06:59 06:59 Intake Total 1497 605 Output Total 1400 1600 375 Balance 97 -995 -375 Weight 81.9 kg 81.5 kg General appearance: PRESENT: no acute distress, well-developed, well-nourished Respiratory exam: PRESENT: Bilateral rhonchi ABSENT: rales, wheezes Cardiovascular exam: PRESENT: Irregularly irregular, systolic murmur. ABSENT: diastolic murmur, rubs Pulses: PRESENT: normal dorsalis pedis pul GI/Abdominal exam: PRESENT: normal bowel sounds, soft. ABSENT: distended, guarding, mass, organolmegaly, rebound, tenderness Neurological exam: PRESENT: alert, awake, oriented to person, oriented to place, oriented to time, oriented to situation Results Laboratory Results: 08/03/18 09:40 08/02/18 04:55 08/03/18 09:40 WBC 11.6 H RBC 3.10 L Hgb 9.1 L Hct 27.0 L MCV 87 MCH 29.2 MCHC 33.6 RDW 13.9 Plt Count 141 L 07/21/18 07/21/18 07/21/18 12:20 13:25 13:25 Creatine Kinase 67 63 CK-MB (CK-2) 1.99 Troponin I 0.094 NT-Pro-B Natriuret Pep 6620 H 07/21/18 07/21/18 07/22/18 19:05 19:05 01:00 Creatine Kinase 56 55 CK-MB (CK-2) Troponin I 0.094 NT-Pro-B Natriuret Pep 07/22/18 07/22/18 07/22/18 01:00 07:07 07:07 Creatine Kinase 53 CK-MB (CK-2) Troponin I 0.095 0.091 NT-Pro-B Natriuret Pep 07/22/18 07/23/18 07/23/18 07:07 23:52 23:52 Creatine Kinase 56 CK-MB (CK-2) 2.39 Troponin I 0.101 NT-Pro-B Natriuret Pep 6520 H 07/23/18 07/24/18 07/24/18 23:52 06:31 06:31 Creatine Kinase 93 CK-MB (CK-2) 2.89 Troponin I 0.115 NT-Pro-B Natriuret Pep 7130 H 07/24/18 07/24/18 07/24/18 11:47 11:47 18:27 Creatine Kinase 90 CK-MB (CK-2) 2.72 2.64 Troponin I 0.079 0.080 NT-Pro-B Natriuret Pep 07/24/18 07/24/18 07/25/18 18:27 18:44 00:35 Creatine Kinase Cancelled 105 CK-MB (CK-2) 2.59 Troponin I 0.071 NT-Pro-B Natriuret Pep 07/25/18 07/26/18 05:45 05:49 Creatine Kinase CK-MB (CK-2) Troponin I NT-Pro-B Natriuret Pep 8460 H 18006 H Impressions: Head CT 07/23/18 23:42 IMPRESSION: Mild atrophy and small vessel ischemic change TECHNICAL DOCUMENTATION: Quality ID # 436: Final reports with documentation of one or more dose reduction techniques (e.g., Automated exposure control, adjustment of the mA and/or kV according to patient size, use of iterative reconstruction technique) copyright 2011 [employer]- All Rights Reserved Chest Ultrasound 07/28/18 10:58 IMPRESSION: Unsuccessful portable thoracentesis under ultrasound guidance. We were unable to obtain fluid from the right pleural space. Patient developed an immediate large pneumothorax. Hospital surgeon notified, chest tube to be placed shortly. Abdomen/Pelvis CT 08/01/18 00:00 IMPRESSION: 1. There is a large, heterogeneous attenuation masslike lesion of the inferior left rectus musculature in sheath measuring approximately 10.6 x 5.8 x 5.3 cm, likely a hematoma in the stated setting of low hemoglobin. Recommend follow-up contrast-enhanced CT or MRI to ensure stability or resolution and exclude underlying solid mass such as sarcoma. 2. Anasarca and pleural effusions. 3. Extensive bibasilar ground-glass and consolidative airspace disease, better evaluated by dedicated chest imaging. 4. 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 Recommend follow-up CT angiogram at 1 year to ensure stability. Chest X-Ray 08/01/18 06:00 IMPRESSION: No pneumothorax. Resolving bilateral interstitial infiltrates compared to previous studies Chest CT 08/02/18 07:00 IMPRESSION: 1. Interval worsening in the appearance of the lungs since the prior examination dated 07/21/2018. New extensive bilateral multifocal patchy c onfluent areas of ground-glass consolidation in the lungs, may represent pneumonia, possibly edema. 2. Stable moderate to large right pleural effusion. Mild to moderate left pleural effusion, unchanged finding. 3. Interval placement of left subclavian central line with the tip in the region of the superior vena cava. 4. Additional stable findings as above. Assessment and Plan - Diagnosis (1) Rectus sheath hematoma Qualifiers: Encounter type: initial encounter Qualified Code(s): S30.1XXA - Contusion of abdominal wall, initial encounter Is this a current diagnosis for this admission?: Yes Plan: Seems to stabilize. No more anticoagulation. Hemoglobin has increased from yesterday. (2) Acute exacerbation of CHF (congestive heart failure) Qualifiers: Heart failure type: systolic Qualified Code(s): I50.23 - Acute on chronic systolic (congestive) heart failure Is this a current diagnosis for this admission?: Yes Plan: Monitoring her volume status closely. Medically managed. Cardiology consulted, dobutamine drip has been restarted today. (3) Acute on chronic respiratory failure with hypoxemia Is this a current diagnosis for this admission?: Yes Plan: Resolved. Breathing is back to baseline. Monitoring for signs of decompensation. (4) Atrial fibrillation with RVR Is this a current diagnosis for this admission?: Yes Plan: Rate controlled with Cardizem. Anticoagulation being held for the reasons noted above. (5) Obesity (BMI 30-39.9) Is this a current diagnosis for this admission?: Yes Plan: Strongly encouraged lifestyle modification (6) Pneumothorax on right Is this a current diagnosis for this admission?: Yes Plan: Resolved - Time Time Spent with patient: 25-34 minutes
--- NOTE | 2018-08-03 21:31 | Progress Note ---
Provider Note Provider Note: SUBJECTIVE: The patient states that shortness of breath is improved. She remains in atrial flutter with controlled ventricular response. She has chronic orthopnea. There is no chest pain or discomfort. She has a cough with productive mild Jose yellow sputum. There is no TIA CVA symptoms. The patient denies any abdominal or flank pain. There is no TIA CVA symptoms. PHYSICAL EXAMINATION: The patient is mildly obese. She appears to be chronically ill. At present she is in no acute distress. Selected Entries 08/03/18 08/03/18 08/03/18 10:55 11:00 19:46 Temperature 98.2 F 98.0 F Temperature Oral Oral Source Heart Rate ( 90 Monitors) Respiratory 22 H Rate Blood Pressure Blood Pressure Mean BP Location BP Position O2 Sat by Pulse 97 Oximetry Oxygen Flow 4.00 Rate Oxygen Delivery Nasal Cannula Method 08/03/18 19:49 Temperature Temperature Source Heart Rate ( Monitors) Respiratory Rate Blood Pressure 92/60 L Blood Pressure 70 Mean BP Location Left Arm BP Position Supine O2 Sat by Pulse Oximetry Oxygen Flow Rate Oxygen Delivery Method Labs- All tests 24 hr 08/06/18 14:35 WBC 11.5 H RBC 2.77 L Hgb 8.1 L Hct 24.6 L MCV 89 MCH 29.1 MCHC 32.8 RDW 14.2 H Plt Count 137 L HEAD: Atraumatic, normocephalic. EYES: Pupils equal round and reactive to light, extraocular movements intact, sclera anicteric, conjunctiva are normal. ENT: TMs normal, nares patent, oropharynx clear without exudates. Moist mucous membranes. NECK: Normal range of motion, supple without lymphadenopathy or JVD. Carotids are equal there is no bruits. There is no thyromegaly. There is no accessory muscles of respiration in use. Trachea central LUNGS: There is diminished air entry and prolonged expiration. There is occasional scattered rhonchi. There are no wet rales of CHF. There is diminished breath sounds in the bases with bilateral dry crackles. On palpation there is no chest wall tenderness. HEART: S1-S2 is heard. S1 is of variable intensity. There is no S3 gallop. There is no S4 gallop. There is systolic murmur left sternal border and apex without radiation. There is no rub.. ABDOMEN: Soft, nontender, normoactive bowel sounds. There is no hepatosplenic megaly no guarding, no rebound. No masses appreciated. EXTREMITIES: Normal range of motion, no pitting or edema. No clubbing or cyanosis. Femorals are well felt. There is no femoral bruits. Leg pulses are well felt. There is no DVT or cellulitis. There is no calf tenderness NEUROLOGICAL: Cranial nerves II through XII grossly intact. Normal speech, normal gait. The patient is awake alert oriented x3 with no focal deficits. PSYCH: Normal mood, normal affect. The patient judgment and insight are intact SKIN: Warm, Dry, normal turgor, no rashes or lesions noted. There is no petechia or ecchymosis Chest X-Ray 07/21/18 11:44 IMPRESSION: Pleural effusions. Asymmetric edema or pneumonia. Chest CT 07/21/18 12:31 IMPRESSION: 1. Bilateral pleural effusions with mild compressive atelectasis in the lower lobes. 2. Cardiomegaly. Minimal pericardial effusion. 3. Possible 3 cm left renal mass. Head CT 07/23/18 23:42 IMPRESSION: Mild atrophy and small vessel ischemic change TECHNICAL DOCUMENTATION: Quality ID # 436: Final reports with documentation of one or more dose reduction techniques (e.g., Automated exposure control, adjustment of the mA and/or kV according to patient size, use of iterative reconstruction technique) copyright 2011 [employer]- All Rights Reserved Chest X-Ray 07/24/18 00:00 IMPRESSION: Bilateral pleural effusions, right greater than left. Chest X-Ray 07/27/18 00:00 IMPRESSION: Central venous access catheter placed via left IJ approach. Catheter tip at superior vena cava. No pneumothorax. Increased bilateral basilar airspace opacities and pleural effusions. Chest X-Ray 07/28/18 00:00 IMPRESSION: About 50% right pneumothorax post unsuccessful thoracentesis attempt. Report was called to the hospitalist surgeon who will place a large bore right chest tube shortly. Chest X-Ray 07/28/18 00:00 IMPRESSION: Interval insertion of a large caliber right chest tube with resolution of the right pneumothorax. Persistent vascular congestion. Persistent basilar opacities and small effusions. Chest Ultrasound 07/28/18 10:58 IMPRESSION: Unsuccessful portable thoracentesis under ultrasound guidance. We were unable to obtain fluid from the right pleural space. Patient developed an immediate large pneumothorax. Hospital surgeon notified, chest tube to be placed shortly. Chest X-Ray 07/29/18 00:00 IMPRESSION: There is a minimal right-sided pneumothorax, slightly decreased compared to prior examination with right-sided chest tube in position. There is significantly improved aeration of the bilateral lung bases. Unchanged cardiomegaly. Chest X-Ray 07/30/18 07:00 IMPRESSION: No pneumothorax. Right large bore chest tube in place. Stable cardiomegaly and bibasilar infiltrates Chest X-Ray 07/31/18 06:00 IMPRESSION: No change. No pneumothorax. Chest X-Ray 07/31/18 12:00 IMPRESSION: Trace right apical pneumothorax post right chest tube removal. Report discussed with Dr Benton, 1220 hours 07/31/2018 Abdomen/Pelvis CT 08/01/18 00:00 IMPRESSION: 1. There is a large, heterogeneous attenuation masslike lesion of the inferior left rectus musculature in sheath measuring approximately 10.6 x 5.8 x 5.3 cm, likely a hematoma in the stated setting of low hemoglobin. Recommend follow-up contrast-enhanced CT or MRI to ensure stability or resolution and exclude underlying solid mass such as sarcoma. 2. Anasarca and pleural effusions. 3. Extensive bibasilar ground-glass and consolidative airspace disease, better evaluated by dedicated chest imaging. 4. 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 Recommend follow-up CT angiogram at 1 year to ensure stability. Chest X-Ray 08/01/18 06:00 IMPRESSION: No pneumothorax. Resolving bilateral interstitial infiltrates compared to previous studies Chest CT 08/02/18 07:00 IMPRESSION: 1. Interval worsening in the appearance of the lungs since the prior examination dated 07/21/2018. New extensive bilateral multifocal patchy confluent areas of ground-glass consolidation in the lungs, may represent pneumonia, possibly edema. 2. Stable moderate to large right pleural effusion. Mild to moderate left pleural effusion, unchanged finding. 3. Interval placement of left subclavian central line with the tip in the region of the superior vena cava. 4. Additional stable findings as above. IMPRESSION/RECOMMENDATION: 1. Paroxysmal atrial fibrillation. At present patient is in atrial flutter. We will continue the patient on Cardizem CD 180 mg p.o. every 12 hours, and increase as tolerated. We will start the patient on dobutamine drip in view of the patient's depressed LV ejection fraction by recent echo. 2. Acute exacerbation of COPD: Improving continue respiratory treatments and oxygen. 3. Small bilateral pleural effusions. Most likely secondary to atrial fibrill ation with rapid ventricular response causing heart failure on a patient with a history of diastolic dysfunction. Continue diuretics. 4. Rectus sheath hematoma: The patient's Eliquis has been stopped. Patient not a candidate for long-term anticoagulation. 5. Diabetes mellitus type 2 [id number] 6. Hypothyroidism: Note thyroid stimulating hormones a very high, suggesting hypothyroidism. Would recommend increasing the patient's thyroid replacement. Will increase the patient's thyroxine to 125 mcg p.o. daily, and watch heart rate response to the patient's increased dose of levothyroxine. [Note in May the patient was admitted with iatrogenic hyper thyroidism.] 7. History of GERD: At present stable. Continue proton pump inhibitors. 8. History of depression: Continue antidepressants. 9. History of lymphoma: At present seems to be in remission 10. History of acute on chronic respiratory failure. At present blood gases show that the patient's PO2 and PCO2 within normal limits. Continue oxygen. Medications reviewed. Medications adjusted. Management plan discussed with attending physician. Medical decision making I was of high complexity, in view of the need to adjust medication doses. 40 minutes spent on this patient more than 50% of time spent in direct patient care. Will follow with you
[2018-08-03] MEDS: ATORVASTATIN CALCIUM 80 MG TABLET PO SCH (21:39)
[2018-08-03] MEDS: MELATONIN 3 MG TABLET PO SCH (21:39)
[2018-08-03] MEDS: MONTELUKAST SODIUM 10 MG TABLET PO SCH (21:40)
[2018-08-04] MEDS: LEVOTHYROXINE SODIUM 0.05 MG TABLET PO SCH (06:24)
[2018-08-04] MEDS ORDERED: DOBUTAMINE HCL/D5W 500 MG/250 ML RTUINJ IV PRN (08:30)
[2018-08-04] MEDS: LEVALBUTEROL HCL NEB 1.25 MG/3 ML AMPUL NEB PRN (08:52)
[2018-08-04] MEDS: BUDESONIDE NEB 0.5 MG/2 ML AMPUL NEB SCH ×2 (08:52→21:36)
[2018-08-04] MEDS: MULTIVITAMIN TABLET PO SCH (10:08)
[2018-08-04] MEDS: BUSPIRONE HCL 10 MG TABLET PO SCH ×2 (10:08→22:06)
[2018-08-04] MEDS: MAGNESIUM OXIDE 400 MG TABLET PO SCH ×2 (10:08→17:06)
[2018-08-04] MEDS: DULOXETINE HCL 30 MG CAPSULE.DR PO SCH ×2 (10:09→11:08)
[2018-08-04] MEDS: GUAIFENESIN 600 MG TABLET.SA PO SCH ×3 (10:10→22:06)
[2018-08-04] MEDS: FAMOTIDINE 20 MG TABLET PO SCH ×2 (10:10→22:06)
[2018-08-04] MEDS: LACTOBACILLUS ACIDOPHILUS 250 MG TAB PO SCH (10:10)
[2018-08-04] MEDS: POTASSIUM CHLORIDE 20 MEQ/15 ML UDCUP PO SCH (10:10)
[2018-08-04] MEDS: ESCITALOPRAM OXALATE 10 MG TABLET PO SCH (10:10)
[2018-08-04] MEDS: DIGOXIN INJ 0.5 MG/2 ML AMPULE IV SCH (10:11)
[2018-08-04] MEDS: METHYLPREDNISOLONE INJ 125 MG/2 ML SDV IV SCH (10:13)
[2018-08-04] MEDS: FLUTICASONE/VILANTEROL 100-25 MCG/DOSE IH SCH (11:07)
[2018-08-04] MEDS: DOCUSATE SODIUM 100 MG CAPSULE PO SCH ×2 (11:08→22:08)
[2018-08-04] MEDS: METOPROLOL TARTRATE 25 MG TABLET PO SCH ×2 (11:08→22:07)
[2018-08-04] MEDS: FUROSEMIDE INJ/PF 20 MG/2 ML SDV IV SCH ×2 (11:08→22:05)
[2018-08-04] MEDS: NICOTINE 21 MG/24 HR PATCH.TD24 TD SCH (11:09)
[2018-08-04] MEDS: LISINOPRIL 5 MG TABLET PO SCH ×2 (11:09→22:07)
[2018-08-04] MEDS: DOBUTAMINE HCL/D5W 500 MG/250 ML RTUINJ IV PRN (11:20)
[2018-08-04] MEDS ORDERED: FUROSEMIDE INJ/PF 20 MG/2 ML SDV IV ONE (17:45)
--- NOTE | 2018-08-04 18:10 | PDOC PROGRESS REPORT ---
Subjective Progress Note for:: 08/04/18 Subjective:: No adverse events overnight. Blood pressures were a little bit low this morning and so we had to hold some of her medications. Blood pressures trended up as the day went on and so we were able to give her her Lasix. Spoke with her daughter today and the family still wants everything done. Reason For Visit: ATRIAL FLUTTER Physical Exam Vital Signs: Temp Pulse Resp BP Pulse Ox 97.4 F 83 16 108/72 97 08/04/18 15:22 08/04/18 15:22 08/04/18 15:22 08/04/18 17:00 08/04/18 15:22 Pulse Oximeter Continuous Start: 07/29/18 13:05 Freq: Status: Active Protocol: Document 08/02/18 00:17 LDA (Rec: 08/02/18 01:19 LDA [email or web address]) Pulse Oximetry Assessment Oxygen Saturation (92-100) 98 Oxygen Flow Rate (L/min) 3 Oxygen Delivery Method Nasal Cannula Fraction of Inspired Oxygen (FIO2) 32 Equipment Usage Equipment in Use Continuous Pulse Oximeter 24 Hour Charge Charge Now Continuous SpO2 Machine # 5 Intake & Output 08/03/18 08/04/18 08/05/18 06:59 06:59 06:59 Intake Total 605 0 50 Output Total 1600 995 50 Balance -995 -995 0 Weight 81.5 kg 80.5 kg General appearance: PRESENT: no acute distress, well-developed, well-nourished Respiratory exam: PRESENT: Bilateral rales ABSENT: Rhonchi, wheezes Cardiovascular exam: PRESENT: Irregularly irregular, systolic murmur. ABSENT: diastolic murmur, rubs Pulses: PRESENT: normal dorsalis pedis pul GI/Abdominal exam: PRESENT: normal bowel sounds, soft. ABSENT: distended, guarding, mass, organolmegaly, rebound, tenderness Neurological exam: PRESENT: alert, awake, oriented to person, oriented to place Results Laboratory Results: 08/03/18 09:40 08/02/18 04:55 07/30/18 15:55 Blood Blood Culture - Final NO GROWTH IN 5 DAYS 07/30/18 16:16 Blood Blood Culture - Final NO GROWTH IN 5 DAYS 07/21/18 07/21/18 07/21/18 12:20 13:25 13:25 Creatine Kinase 67 63 CK-MB (CK-2) 1.99 Troponin I 0.094 NT-Pro-B Natriuret Pep 6620 H 07/21/18 07/21/18 07/22/18 19:05 19:05 01:00 Creatine Kinase 56 55 CK-MB (CK-2) Troponin I 0.094 NT-Pro-B Natriuret Pep 07/22/18 07/22/18 07/22/18 01:00 07:07 07:07 Creatine Kinase 53 CK-MB (CK-2) Troponin I 0.095 0.091 NT-Pro-B Natriuret Pep 07/22/18 07/23/18 07/23/18 07:07 23:52 23:52 Creatine Kinase 56 CK-MB (CK-2) 2.39 Troponin I 0.101 NT-Pro-B Natriuret Pep 6520 H 07/23/18 07/24/18 07/24/18 23:52 06:31 06:31 Creatine Kinase 93 CK-MB (CK-2) 2.89 Troponin I 0.115 NT-Pro-B Natriuret Pep 7130 H 07/24/18 07/24/18 07/24/18 11:47 11:47 18:27 Creatine Kinase 90 CK-MB (CK-2) 2.72 2.64 Troponin I 0.079 0.080 NT-Pro-B Natriuret Pep 07/24/18 07/24/18 07/25/18 18:27 18:44 00:35 Creatine Kinase Cancelled 105 CK-MB (CK-2) 2.59 Troponin I 0.071 NT-Pro-B Natriuret Pep 07/25/18 07/26/18 05:45 05:49 Creatine Kinase CK-MB (CK-2) Troponin I NT-Pro-B Natriuret Pep 8460 H 41461 H Impressions: Head CT 07/23/18 23:42 IMPRESSION: Mild atrophy and small vessel ischemic change TECHNICAL DOCUMENTATION: Quality ID # 436: Final reports with documentation of one or more dose reduction techniques (e.g., Automated exposure control, adjustment of the mA and/or kV according to patient size, use of iterative reconstruction technique) copyright 2011 [employer]- All Rights Reserved Chest Ultrasound 07/28/18 10:58 IMPRESSION: Unsuccessful portable thoracentesis under ultrasound guidance. We were unable to obtain fluid from the right pleural space. Patient developed an immediate large pneumothorax. Hospital surgeon notified, chest tube to be placed shortly. Abdomen/Pelvis CT 08/01/18 00:00 IMPRESSION: 1. There is a large, heterogeneous attenuation masslike lesion of the inferior left rectus musculature in sheath measuring approximately 10.6 x 5.8 x 5.3 cm, likely a hematoma in the stated setting of low hemoglobin. Recommend follow-up contrast-enhanced CT or MRI to ensure stability or resolution and exclude underlying solid mass such as sarcoma. 2. Anasarca and pleural effusions. 3. Extensive bibasilar ground-glass and consolidative airspace disease, better evaluated by dedicated chest imaging. 4. 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 Recommend follow-up CT angiogram at 1 year to ensure stability. Chest X-Ray 08/01/18 06:00 IMPRESSION: No pneumothorax. Resolving bilateral interstitial infiltrates compared to previous studies Chest CT 08/02/18 07:00 IMPRESSION: 1. Interval worsening in the appearance of the lungs since the prior examination dated 07/21/2018. New extensive bilateral multifocal patchy confluent areas of ground-glass consolidation in the lungs, may represent pneumonia, possibly edema. 2. Stable moderate to large right pleural effusion. Mild to moderate left pleural effusion, unchanged finding. 3. Interval placement of left subclavian central line with the tip in the region of the superior vena cava. 4. Additional stable findings as above. Assessment and Plan - Diagnosis (1) Rectus sheath hematoma Qualifiers: Encounter type: initial encounter Qualified Code(s): S30.1XXA - Contusion of abdominal wall, initial encounter Is this a current diagnosis for this admission?: Yes Plan: Seems to stabilize. No more anticoagulation. (2) Acute exacerbation of CHF (congestive heart failure) Qualifiers: Heart failure type: systolic Qualified Code(s): I50.23 - Acute on chronic systolic (congestive) heart failure Is this a current diagnosis for this admission?: Yes Plan: Monitoring her volume status closely. Medically managed. Cardiology consulted, dobutamine drip has been restarted. Continue diuresis as blood pressure tolerates. (3) Acute on chronic respiratory failure with hypoxemia Is this a current diagnosis for this admission?: Yes Plan: Resolved. Breathing is back to baseline. Monitoring for signs of decompensation. (4) Atrial fibrillation with RVR Is this a current diagnosis for this admission?: Yes Plan: Rate controlled with Cardizem. Anticoagulation being held for the reasons noted above. (5) Obesity (BMI 30-39.9) Is this a current diagnosis for this admission?: Yes Plan: Strongly encouraged lifestyle modification (6) Pneumothorax on right Is this a current diagnosis for this admission?: Yes Plan: Resolved - Time Time Spent with patient: 25-34 minutes
[2018-08-04] MEDS: ATORVASTATIN CALCIUM 80 MG TABLET PO SCH (22:07)
[2018-08-04] MEDS: MONTELUKAST SODIUM 10 MG TABLET PO SCH (22:07)
[2018-08-04] MEDS: MELATONIN 3 MG TABLET PO SCH (22:09)
--- NOTE | 2018-08-04 23:54 | Progress Note ---
Provider Note Provider Note: SUBJECTIVE: The patient complains of feeling generalized tiredness. She denies any chest pain or discomfort. There she denies any shortness of breath but at rest. There is no PND orthopnea.. There is no leg edema. The patient continues to be in atrial flutter with a controlled ventricular response. She does have some cough she states is productive of yellowish sputum. There is no pleuritic chest pain. There is no hemoptysis. There is no TIA CVA symptoms. Note that the patient's anticoagulation had to be stopped due to retroperitoneal bleed with a rectus sheath hematoma. She has no nausea or vomiting. PHYSICAL EXAMINATION: The patient is mildly obese. She is in no acute distress. She appears to be chronically ill. Selected Entries 08/04/18 07:48 Temperature 97.3 F Temperature Axillary Source Pulse Rate 67 Respiratory 14 Rate Blood Pressure 111/52 L Blood Pressure 71 Mean BP Location Right Arm BP Position Supine O2 Sat by Pulse 95 Oximetry Oxygen Flow 3.00 Rate Oxygen Delivery Nasal Cannula Method HEAD: Atraumatic, normocephalic. EYES: Pupils equal round and reactive to light, extraocular movements intact, sclera anicteric, conjunctiva are normal. ENT: TMs normal, nares patent, oropharynx clear without exudates. Moist mucous membranes. NECK: Normal range of motion, supple without lymphadenopathy or JVD. Carotids are equal there is no bruits. There is no thyromegaly. There is no accessory muscles of respiration in use. Trachea central LUNGS: There is diminished air entry and prolonged expiration. There is occasional scattered rhonchi. There are no wet rales of CHF. There is diminished breath sounds in the bases with bilateral dry crackles. On palpation there is no chest wall tenderness. HEART: S1-S2 is heard. S1 is of variable intensity. There is no S3 gallop. There is no S4 gallop. There is systolic murmur left sternal border and apex without radiation. There is no rub.. ABDOMEN: Soft, nontender, normoactive bowel sounds. There is no hepatosplenic megaly no guarding, no rebound. No masses appreciated. EXTREMITIES: Normal range of motion, no pitting or edema. No clubbing or cyanosis. Femorals are well felt. There is no femoral bruits. Leg pulses are well felt. There is no DVT or cellulitis. There is no calf tenderness NEUROLOGICAL: Cranial nerves II through XII grossly intact. Normal speech, normal gait. The patient is awake alert oriented x3 with no focal deficits. PSYCH: Normal mood, normal affect. The patient judgment and insight are intact SKIN: Warm, Dry, normal turgor, no rashes or lesions noted. There is no petechia or ecchymosis Chest X-Ray 07/21/18 11:44 IMPRESSION: Pleural effusions. Asymmetric edema or pneumonia. Chest CT 07/21/18 12:31 IMPRESSION: 1. Bilateral pleural effusions with mild compressive atelectasis in the lower lobes. 2. Cardiomegaly. Minimal pericardial effusion. 3. Possible 3 cm left renal mass. Head CT 07/23/18 23:42 IMPRESSION: Mild atrophy and small vessel ischemic change TECHNICAL DOCUMENTATION: Quality ID # 436: Final reports with documentation of one or more dose reduction techniques (e.g., Automated exposure control, adjustment of the mA and/or kV according to patient size, use of iterative reconstruction technique) copyright 2011 [employer]- All Rights Reserved Chest X-Ray 07/24/18 00:00 IMPRESSION: Bilateral pleural effusions, right greater than left. Chest X-Ray 07/27/18 00:00 IMPRESSION: Central venous access catheter placed via left IJ approach. Ca theter tip at superior vena cava. No pneumothorax. Increased bilateral basilar airspace opacities and pleural effusions. Chest X-Ray 07/28/18 00:00 IMPRESSION: About 50% right pneumothorax post unsuccessful thoracentesis attempt. Report was called to the hospitalist surgeon who will place a large bore right chest tube shortly. Chest X-Ray 07/28/18 00:00 IMPRESSION: Interval insertion of a large caliber right chest tube with resolution of the right pneumothorax. Persistent vascular congestion. Persistent basilar opacities and small effusions. Chest Ultrasound 07/28/18 10:58 IMPRESSION: Unsuccessful portable thoracentesis under ultrasound guidance. We were unable to obtain fluid from the right pleural space. Patient developed an immediate large pneumothorax. Hospital surgeon notified, chest tube to be placed shortly. Chest X-Ray 07/29/18 00:00 IMPRESSION: There is a minimal right-sided pneumothorax, slightly decreased compared to prior examination with right-sided chest tube in position. There is significantly improved aeration of the bilateral lung bases. Unchanged cardiomegaly. Chest X-Ray 07/30/18 07:00 IMPRESSION: No pneumothorax. Right large bore chest tube in place. Stable cardiomegaly and bibasilar infiltrates Chest X-Ray 07/31/18 06:00 IMPRESSION: No change. No pneumothorax. Chest X-Ray 07/31/18 12:00 IMPRESSION: Trace right apical pneumothorax post right chest tube removal. Report discussed with Dr Benton, 1220 hours 07/31/2018 IMPRESSION/RECOMMENDATION: 1. Paroxysmal atrial fibrillation. At present patient is in atrial flutter. We will continue the patient on Cardizem CD 180 mg p.o. every 12 hours, and increase as tolerated. Continue patient dobutamine drip. 2. Acute exacerbation of COPD: Improving continue respiratory treatments and oxygen. 3. Small bilateral pleural effusions. Most likely secondary to atrial fibrillation with rapid ventricular response causing heart failure on a patient with a history of diastolic dysfunction. Continue diuretics. 4. Rectus sheath hematoma: Patient not a candidate for long-term anticoagulation. Note to the patient's Eliquis has been stopped. 5. Diabetes mellitus type 2 [id number] 6. Hypothyroidism: 7. History of GERD: At present stable. Continue proton pump inhibitors. 8. History of depression: Continue antidepressants. 9. History of lymphoma: At present seems to be in remission 10. History of acute on chronic respiratory failure. At present blood gases show that the patient's PO2 and PCO2 within normal limits. Continue oxygen. Medications reviewed. Medications adjusted. Management plan discussed with attending physician. Medical decision making I was of high complexity, in view of the need to adjust medication doses. 40 minutes spent on this patient more than 50% of time spent in direct patient care. Will follow with you
[2018-08-05] MEDS: LEVOTHYROXINE SODIUM 0.05 MG TABLET PO SCH (06:44)
[2018-08-05] MEDS: DOBUTAMINE HCL/D5W 500 MG/250 ML RTUINJ IV PRN (08:30)
[2018-08-05] MEDS: BUDESONIDE NEB 0.5 MG/2 ML AMPUL NEB SCH ×2 (08:45→20:57)
[2018-08-05] MEDS: LEVALBUTEROL HCL NEB 1.25 MG/3 ML AMPUL NEB PRN (08:45)
[2018-08-05] MEDS: BUSPIRONE HCL 10 MG TABLET PO SCH ×2 (10:31→22:08)
[2018-08-05] MEDS: MULTIVITAMIN TABLET PO SCH (10:33)
[2018-08-05] MEDS: ESCITALOPRAM OXALATE 10 MG TABLET PO SCH (10:33)
[2018-08-05] MEDS: LACTOBACILLUS ACIDOPHILUS 250 MG TAB PO SCH (10:33)
[2018-08-05] MEDS: MAGNESIUM OXIDE 400 MG TABLET PO SCH ×2 (10:35→17:12)
[2018-08-05] MEDS: FAMOTIDINE 20 MG TABLET PO SCH ×2 (10:35→22:08)
[2018-08-05] MEDS: DULOXETINE HCL 30 MG CAPSULE.DR PO SCH (10:36)
[2018-08-05] MEDS: DOCUSATE SODIUM 100 MG CAPSULE PO SCH ×2 (10:36→22:05)
[2018-08-05] MEDS: POTASSIUM CHLORIDE 20 MEQ/15 ML UDCUP PO SCH (10:36)
[2018-08-05] MEDS: GUAIFENESIN 600 MG TABLET.SA PO SCH ×2 (10:36→22:09)
[2018-08-05] MEDS: METHYLPREDNISOLONE INJ 125 MG/2 ML SDV IV SCH (10:48)
[2018-08-05] MEDS: FUROSEMIDE INJ/PF 20 MG/2 ML SDV IV SCH ×2 (10:49→22:10)
[2018-08-05] MEDS: FLUTICASONE/VILANTEROL 100-25 MCG/DOSE IH SCH (11:14)
[2018-08-05 11:25] LABS: BLOOD UREA NITROGEN 24 mg/dL (7-20); CALCIUM 8.4 mg/dL (8.4-10.2); CARBON DIOXIDE 38 mmol/L (22-30); CHLORIDE 101 mmol/L (98-107); GLUCOSE 83 mg/dL (75-110); POTASSIUM 4.5 mmol/L (3.6-5.0)
[2018-08-05 11:41] LABS: SODIUM 137.1 mmol/L (137-145)
[2018-08-05 11:45] LABS: ANION GAP -2 (5-19); DIGOXIN 2.46 ng/mL (0.8-2.0)
[2018-08-05 12:13] LABS: HEMATOCRIT 23.5 % (36.0-47.0); MEAN CORPUSCULAR HEMOGLOBIN 29.9 pg (27.0-33.4); MEAN CORPUSCULAR HGB CONC 34.2 g/dL (32.0-36.0); MEAN CORPUSCULAR VOLUME 88 fl (80-97); PLATELET COUNT 134 10^3/uL (150-450); RED BLOOD COUNT 2.68 10^6/uL (3.72-5.28); WHITE BLOOD COUNT 11.6 10^3/uL (4.0-10.5)
[2018-08-05] MEDS: METOPROLOL TARTRATE 25 MG TABLET PO SCH ×2 (12:28→22:07)
[2018-08-05] MEDS: DIGOXIN INJ 0.5 MG/2 ML AMPULE IV SCH (12:28)
[2018-08-05] MEDS: NICOTINE 21 MG/24 HR PATCH.TD24 TD SCH (12:29)
[2018-08-05] MEDS: LISINOPRIL 5 MG TABLET PO SCH ×2 (12:29→22:08)
--- NOTE | 2018-08-05 15:35 | PDOC PROGRESS REPORT ---
Subjective Progress Note for:: 08/05/18 Subjective:: No adverse events overnight. Blood pressures were low yesterday but seem to have stabilized. We have been having to hold doses of her antihypertensives. She has been eating a little bit. She says that she feels okay, just mostly tired. No chest pain. No shortness of breath, but she is in bed all the time. Reason For Visit: ATRIAL FLUTTER Physical Exam Vital Signs: Temp Pulse Resp BP Pulse Ox 97.7 F 51 L 14 108/62 95 08/05/18 11:50 08/05/18 11:50 08/05/18 11:50 08/05/18 11:50 08/05/18 11:50 Pulse Oximeter Continuous Start: 07/29/18 13:05 Freq: Status: Active Protocol: Document 08/05/18 00:33 CMI (Rec: 08/05/18 00:33 CMI [email or web address]) Pulse Oximetry Assessment Oxygen Flow Rate (L/min) 4 Oxygen Delivery Method Nasal Cannula Fraction of Inspired Oxygen (FIO2) 36 Equipment Usage Equipment Standby Continuous SpO2 Machine # 5 Intake & Output 08/04/18 08/05/18 08/06/18 06:59 06:59 06:59 Intake Total 0 50 450 Output Total 995 1150 300 Balance -995 -1100 150 Weight 80.5 kg 80.3 kg General appearance: PRESENT: no acute distress, well-developed, well-nourished Respiratory exam: PRESENT: Bilateral rales, diminished breath sounds ABSENT: Rhonchi, wheezes, accessory muscle use Cardiovascular exam: PRESENT: Irregularly irregular, systolic murmur. ABSENT: diastolic murmur, rubs Pulses: PRESENT: normal dorsalis pedis pulses GI/Abdominal exam: PRESENT: normal bowel sounds, soft. ABSENT: distended, guarding, mass, organolmegaly, rebound, tenderness Neurological exam: PRESENT: alert, awake, oriented to person, oriented to place Extremities exam: PRESENT: +1 edema. ABSENT: clubbing, pedal edema Results Laboratory Results: 08/05/18 11:07 08/05/18 10:35 08/05/18 08/05/18 08/05/18 10:35 10:35 11:07 WBC Cancelled 11.6 H RBC Cancelled 2.68 L Hgb Cancelled 8.0 L Hct Cancelled 23.5 L MCV Cancelled 88 MCH Cancelled 29.9 MCHC Cancelled 34.2 RDW Cancelled 14.0 Plt Count Cancelled 134 L Sodium 137.1 Potassium 4.5 Chloride 101 Carbon Dioxide 38 H Anion Gap -2 L BUN 24 H Creatinine 0.91 Est GFR ( Amer) > 60 Est GFR (Non-Af Amer) > 60 Glucose 83 Calcium 8.4 07/30/18 15:55 Blood Blood Culture - Final NO GROWTH IN 5 DAYS 07/30/18 16:16 Blood Blood Culture - Final NO GROWTH IN 5 DAYS 07/21/18 07/21/18 07/21/18 12:20 13:25 13:25 Creatine Kinase 67 63 CK-MB (CK-2) 1.99 Troponin I 0.094 NT-Pro-B Natriuret Pep 6620 H 07/21/18 07/21/18 07/22/18 19:05 19:05 01:00 Creatine Kinase 56 55 CK-MB (CK-2) Troponin I 0.094 NT-Pro-B Natriuret Pep 07/22/18 07/22/18 07/22/18 01:00 07:07 07:07 Creatine Kinase 53 CK-MB (CK-2) Troponin I 0.095 0.091 NT-Pro-B Natriuret Pep 07/22/18 07/23/18 07/23/18 07:07 23:52 23:52 Creatine Kinase 56 CK-MB (CK-2) 2.39 Troponin I 0.101 NT-Pro-B Natriuret Pep 6520 H 07/23/18 07/24/18 07/24/18 23:52 06:31 06:31 Creatine Kinase 93 CK-MB (CK-2) 2.89 Troponin I 0.115 NT-Pro-B Natriuret Pep 7130 H 07/24/18 07/24/18 07/24/18 11:47 11:47 18:27 Creatine Kinase 90 CK-MB (CK-2) 2.72 2.64 Troponin I 0.079 0.080 NT-Pro-B Natriuret Pep 07/24/18 07/24/18 07/25/18 18:27 18:44 00:35 Creatine Kinase Cancelled 105 CK-MB (CK-2) 2.59 Troponin I 0.071 NT-Pro-B Natriuret Pep 07/25/18 07/26/18 05:45 05:49 Creatine Kinase CK-MB (CK-2) Troponin I NT-Pro-B Natriuret Pep 8460 H 24584 H Impressions: Head CT 07/23/18 23:42 IMPRESSION: Mild atrophy and small vessel ischemic change TECHNICAL DOCUMENTATION: Quality ID # 436: Final reports with documentation of one or more dose reduction techniques (e.g., Automated exposure control, adjustment of the mA and/or kV according to patient size, use of iterative reconstruction technique) copyright 2010 [employer]- All Rights Reserved Chest Ultrasound 07/28/18 10:58 IMPRESSION: Unsuccessful portable thoracentesis under ultrasound guidance. We were unable to obtain fluid from the right pleural space. Patient developed an immediate large pneumothorax. Hospital surgeon notified, chest tube to be placed shortly. Abdomen/Pelvis CT 08/01/18 00:00 IMPRESSION: 1. There is a large, heterogeneous attenuation masslike lesion of the inferior left rectus musculature in sheath measuring approximately 10.6 x 5.8 x 5.3 cm, likely a hematoma in the stated setting of low hemoglobin. Recommend follow-up contrast-enhanced CT or MRI to ensure stability or resolution and exclude underlying solid mass such as sarcoma. 2. Anasarca and pleural effusions. 3. Extensive bibasilar ground-glass and consolidative airspace disease, better evaluated by dedicated chest imaging. 4. 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 Recommend follow-up CT angiogram at 1 year to ensure stability. Chest X-Ray 08/01/18 06:00 IMPRESSION: No pneumothorax. Resolving bilateral interstitial infiltrates compared to previous studies Chest CT 08/02/18 07:00 IMPRESSION: 1. Interval worsening in the appearance of the lungs since the prior examination dated 07/21/2018. New extensive bilateral multifocal patchy confluent areas of ground-glass consolidation in the lungs, may represent pneumonia, possibly edema. 2. Stable moderate to large right pleural effusion. Mild to moderate left pleural effusion, unchanged finding. 3. Interval placement of left subclavian central line with the tip in the region of the superior vena cava. 4. Additional stable findings as above. Assessment and Plan - Diagnosis (1) Rectus sheath hematoma Qualifiers: Encounter type: initial encounter Qualified Code(s): S30.1XXA - Contusion of abdominal wall, initial encounter Is this a current diagnosis for this admission?: Yes Plan: Seems to stabilize. No more anticoagulation. (2) Acute exacerbation of CHF (congestive heart failure) Qualifiers: Heart failure type: systolic Qualified Code(s): I50.23 - Acute on chronic systolic (congestive) heart failure Is this a current diagnosis for this admission?: Yes Plan: Monitoring her volume status closely. Medically managed. Cardiology consulted, dobutamine drip has been restarted. Continue diuresis as blood pressure tolerates. (3) Acute on chronic respiratory failure with hypoxemia Is this a current diagnosis for this admission?: Yes Plan: Resolved. Breathing is back to baseline. Monitoring for signs of decompensation. (4) Atrial fibrillation with RVR Is this a current diagnosis for this admission?: Yes Plan: Rate controlled with Cardizem. Anticoagulation being held for the reasons noted above. (5) Obesity (BMI 30-39.9) Is this a current diagnosis for this admission?: Yes Plan: Strongly encouraged lifestyle modification (6) Pneumothorax on right Is this a current diagnosis for this admission?: Yes Plan: Resolved - Time Time Spent with patient: 25-34 minutes
[2018-08-05] MEDS: MONTELUKAST SODIUM 10 MG TABLET PO SCH (22:08)
[2018-08-05] MEDS: ATORVASTATIN CALCIUM 80 MG TABLET PO SCH (22:09)
[2018-08-05] MEDS: MELATONIN 3 MG TABLET PO SCH (22:12)
--- NOTE | 2018-08-05 22:57 | Progress Note ---
Provider Note Provider Note: CARDIOLOGY PROGRESS NOTE by Dr. Kristen Israel on 08/05/2018. SUBJECTIVE: The patient complains of feeling generalized tiredness. She denies any chest pain or discomfort. There she denies any shortness of breath but at rest. There is no PND orthopnea.. There is no leg edema. The patient continues to be in atrial flutter with a controlled ventricular response. She does have some cough she states is productive of yellowish sputum. There is no pleuritic chest pain. There is no hemoptysis. There is no TIA CVA symptoms. Note that the patient's anticoagulation had to be stopped due to retroperitoneal bleed with a rectus sheath hematoma. She has no nausea or vomiting. She has no exam. Hence she has no signs of digoxin toxicity, in spite of this level being 2.46. We will hold the patient's digoxin. PHYSICAL EXAMINATION: The patient appears to be chronically ill and malnourished. She is in no acute distress. Selected Entries 08/05/18 08/05/18 11:50 12:00 Temperature 97.7 F Temperature Oral Source Pulse Rate 51 L Heart Rate ( 72 Monitors) Respiratory 14 Rate Blood Pressure 108/62 Blood Pressure 77 Mean BP Location Right Arm BP Position Supine Oxygen Flow 3.00 Rate Oxygen Delivery Nasal Cannula Method HEAD: Atraumatic, normocephalic. EYES: Pupils equal round and reactive to light, extraocular movements intact, sclera anicteric, conjunctiva are normal. ENT: TMs normal, nares patent, oropharynx clear without exudates. Moist mucous membranes. NECK: Normal range of motion, supple without lymphadenopathy or JVD. Carotids are equal there is no bruits. There is no thyromegaly. There is no accessory muscles of respiration in use. Trachea central LUNGS: There is diminished air entry and prolonged expiration. There is occasional scattered rhonchi. There are no wet rales of CHF. There is diminished breath sounds in the bases with bilateral dry crackles. On palpation there is no chest wall tenderness. HEART: S1-S2 is heard. S1 is of variable intensity. There is no S3 gallop. There is no S4 gallop. There is systolic murmur left sternal border and apex without radiation. There is no rub.. ABDOMEN: Soft, nontender, normoactive bowel sounds. There is no hepatosplenic megaly no guarding, no rebound. No masses appreciated. EXTREMITIES: Normal range of motion, no pitting or edema. No clubbing or cyanosis. Femorals are well felt. There is no femoral bruits. Leg pulses are well felt. There is no DVT or cellulitis. There is no calf tenderness NEUROLOGICAL: Cranial nerves II through XII grossly intact. Normal speech, normal gait. The patient is awake alert oriented x3 with no focal deficits. PSYCH: Normal mood, normal affect. The patient judgment and insight are intact SKIN: Warm, Dry, normal turgor, no rashes or lesions noted. There is no petechia or ecchymosis Labs- All tests 24 hr 08/05/18 08/05/18 08/05/18 10:35 10:35 11:07 WBC Cancelled 11.6 H RBC Cancelled 2.68 L Hgb Cancelled 8.0 L Hct Cancelled 23.5 L MCV Cancelled 88 MCH Cancelled 29.9 MCHC Cancelled 34.2 RDW Cancelled 14.0 Plt Count Cancelled 134 L Platelet Estimate Cancelled Sodium 137.1 Potassium 4.5 Chloride 101 Carbon Dioxide 38 H Anion Gap -2 L BUN 24 H Creatinine 0.91 Est GFR ( Amer) > 60 Est GFR (Non-Af Amer) > 60 Glucose 83 Calcium 8.4 Digoxin 2.46 H* Slides for Path Review Cancelled Chest X-Ray 07/21/18 11:44 IMPRESSION: Pleural effusions. Asymmetric edema or pneumonia. Chest CT 07/21/18 12:31 IMPRESSION: 1. Bilateral pleural effusions with mild compressive atelectasis in the lower lobes. 2. Cardiomegaly. Minimal pericardial effusion. 3. Possible 3 cm left renal mass. Head CT 07/23/18 23:42 IMPRESSION: Mild atrophy and small vessel ischemic change TECHNICAL DOCUMENTATION: Quality ID # 436: Final reports with documentation of one or more dose reduction techniques (e.g., Automated exposure control, adjustment of the mA and/or kV according to patient size, use of iterative reconstruction technique) copyright 2011 [employer]- All Rights Reserved Chest X-Ray 07/24/18 00:00 IMPRESSION: Bilateral pleural effusions, right greater than left. Chest X-Ray 07/27/18 00:00 IMPRESSION: Central venous access catheter placed via left IJ approach. Catheter tip at superior vena cava. No pneumothorax. Increased bilateral basilar airspace opacities and pleural effusions. Chest X-Ray 07/28/18 00:00 IMPRESSION: About 50% right pneumothorax post unsuccessful thoracentesis attempt. Report was called to the hospitalist surgeon who will place a large bore right chest tube shortly. Chest X-Ray 07/28/18 00:00 IMPRESSION: Interval insertion of a large caliber right chest tube with resolution of the right pneumothorax. Persistent vascular congestion. Persistent basilar opacities and small effusions. Chest Ultrasound 07/28/18 10:58 IMPRESSION: Unsuccessful portable thoracentesis under ultrasound guidance. We were unable to obtain fluid from the right pleural space. Patient developed an immediate large pneumothorax. Hospital surgeon notified, chest tube to be placed shortly. Chest X-Ray 07/29/18 00:00 IMPRESSION: There is a minimal right-sided pneumothorax, slightly decreased compared to prior examination with right-sided chest tube in position. There is significantly improved aeration of the bilateral lung bases. Unchanged cardiomegaly. Chest X-Ray 07/30/18 07:00 IMPRESSION: No pneumothorax. Right large bore chest tube in place. Stable cardiomegaly and bibasilar infiltrates Chest X-Ray 07/31/18 06:00 IMPRESSION: No change. No pneumothorax. Chest X-Ray 07/31/18 12:00 IMPRESSION: Trace right apical pneumothorax post right chest tube removal. Report discussed with Dr Benton, 1220 hours 07/31/2018 Abdomen/Pelvis CT 08/01/18 00:00 IMPRESSION: 1. There is a large, heterogeneous attenuation masslike lesion of the inferior left rectus musculature in sheath measuring approximately 10.6 x 5.8 x 5.3 cm, likely a hematoma in the stated setting of low hemoglobin. Recommend follow-up contrast-enhanced CT or MRI to ensure stability or resolution and exclude underlying solid mass such as sarcoma. 2. Anasarca and pleural effusions. 3. Extensive bibasilar ground-glass and consolidative airspace disease, better evaluated by dedicated chest imaging. 4. 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 Recommend follow-up CT angiogram at 1 year to ensure stability. Chest X-Ray 08/01/18 06:00 IMPRESSION: No pneumothorax. Resolving bilateral interstitial infiltrates compared to previous studies Chest CT 08/02/18 07:00 IMPRESSION: 1. Interval worsening in the appearance of the lungs since the prior examination dated 07/21/2018. New extensive bilateral multifocal patchy confluent areas of ground-glass consolidation in the lungs, may represent pneumonia, possibly edema. 2. Stable moderate to large right pleural effusion. Mild to moderate left pleural effusion, unchanged finding. 3. Interval placement of left subclavian central line with the tip in the region of the superior vena cava. 4. Additional stable findings as above. MPRESSION/RECOMMENDATION: 1. History of paroxysmal atrial fibrillation. At present patient is in chronic atrial flutter. We will continue the patient on Cardizem CD 180 mg p.o. every 12 hours, and increase as tolerated. Note with the patient rectus sheath hematoma/retroperitoneal bleed, she is not a candidate for chronic anticoagulant therapy. Protamine given to reverse the anticoagulation effect of IV heparin. Will not restart the patient on Eliquis. 2. Acute exacerbation of COPD: Improving continue respiratory treatments and oxygen. 3. congestive heart failure: Continue the patient on dobutamine. Continue the patient on Lasix. 4. Bibasilar pneumonia: Continue antibiotics. 5. CARDIOMYOPATHY: dobutamine drip. Continue Lasix and ARB and beta-blockers. 6. Status post attempted right-sided thoracentesis, which ended up with the patient having right-sided pneumothorax. She is status post large bore chest tube to relieve the pneumothorax. At present the pneumothorax is almost completely resolved.. The right chest tube is been removed, there is a residual small right apical pneumothorax. 7. Diabetes mellitus type 2 [id number] 8. Hypothyroidism: Note thyroid stimulating hormones a very high, suggesting hypothyroidism. Would recommend increasing the patient's thyroid replacement. Will increase the patient's thyroxine to 125 mcg p.o. daily, and watch heart rate response to the patient's increased dose of levothyroxine. [Note in May the patient was admitted with iatrogenic hyper thyroidism.] 9. History of GERD: At present stable. Continue proton pump inhibitors. 10. History of depression: Continue antidepressants. 11. History of lymphoma: At present seems to be in remission 12. Rectus sheath hematoma secondary to retroperitoneal bleed. Hence this is definite contraindication for chronic anticoagulation. 13. Elevated digoxin level. We will hold the patient's digoxin. Note that the patient has no clinical symptoms of digitoxicity. 14. Malnourished chronically ill patient: Consider nutritional supplement. Medications reviewed. Medications adjusted. Medical decision making is still of high complexity. Management plan discussed with the attending physician on the case. Note 40 minutes spent on this patient with more than 50% of time spent in direct patient care. We will follow
[2018-08-06] MEDS: LEVOTHYROXINE SODIUM 0.05 MG TABLET PO SCH (06:10)
[2018-08-06] MEDS: DOBUTAMINE HCL/D5W 500 MG/250 ML RTUINJ IV PRN (06:11)
[2018-08-06] MEDS: LEVALBUTEROL HCL NEB 1.25 MG/3 ML AMPUL NEB PRN ×2 (08:14→20:04)
[2018-08-06] MEDS: BUDESONIDE NEB 0.5 MG/2 ML AMPUL NEB SCH ×2 (08:14→20:04)
[2018-08-06] MEDS: FLUTICASONE/VILANTEROL 100-25 MCG/DOSE IH SCH (09:43)
[2018-08-06] MEDS: DULOXETINE HCL 30 MG CAPSULE.DR PO SCH (09:46)
[2018-08-06] MEDS: BUSPIRONE HCL 10 MG TABLET PO SCH (09:46)
[2018-08-06] MEDS: MULTIVITAMIN TABLET PO SCH (09:47)
[2018-08-06] MEDS: LACTOBACILLUS ACIDOPHILUS 250 MG TAB PO SCH (09:47)
[2018-08-06] MEDS: MAGNESIUM OXIDE 400 MG TABLET PO SCH (09:47)
[2018-08-06] MEDS: ESCITALOPRAM OXALATE 10 MG TABLET PO SCH (09:47)
[2018-08-06] MEDS: FAMOTIDINE 20 MG TABLET PO SCH (09:47)
[2018-08-06] MEDS: GUAIFENESIN 600 MG TABLET.SA PO SCH (09:47)
[2018-08-06] MEDS: FUROSEMIDE INJ/PF 20 MG/2 ML SDV IV SCH (09:50)
[2018-08-06] MEDS: DOCUSATE SODIUM 100 MG CAPSULE PO SCH (09:56)
[2018-08-06] MEDS: NICOTINE 21 MG/24 HR PATCH.TD24 TD SCH (09:56)
[2018-08-06] MEDS: POTASSIUM CHLORIDE 20 MEQ/15 ML UDCUP PO SCH (10:09)
[2018-08-06] MEDS: METOPROLOL TARTRATE 25 MG TABLET PO SCH (11:10)
[2018-08-06] MEDS: LISINOPRIL 5 MG TABLET PO SCH (11:11)
--- NOTE | 2018-08-06 13:19 | PROGRESS NOTE E ---
Progress Note NAME: RADHA LAGUERRE : 1945 AGE: 73Y DATE: 08/06/2018 ROOM: 332 SUBJECTIVE: The patient is lying in bed. She states she feels a little better today. She denies any nausea, vomiting, diarrhea, chest pain, or heart palpitations. No fevers or chills. The patient has been somewhat short of breath at time, but overall continues to improve. The patient does not voice any other concerns at this time. REVIEW OF SYSTEMS: Rest of the review of systems is negative. MEDICATIONS: Medications were reviewed. OBJECTIVE: GENERAL: The patient is a 73-year-old female who is awake, alert, and oriented to person, place, time, and situation. She is verbal, conversational. Does not appear to be in any acute distress. VITAL SIGNS: Temperature 97.9, pulse 60, respirations 20, blood pressure 90/48. Oxygen saturation 98% on 3 liters nasal cannula. SKIN: Pale, dry. No rashes. Not diaphoretic. She is warm on all 4 extremities appropriately. CVS: Heart is regular. There is no rub. CHEST: Diminished, symmetrical, unlabored. ABDOMEN: Soft, nontender. EXTREMITIES: No cyanosis or clubbing. The patient does have dependent edema of the left upper extremity. DIAGNOSTICS/LAB VALUES: Hematology obtained on 08/05/2018: WBC 11.6, hemoglobin 8.0, hematocrit 23.5, platelet count 134,000. Chemistry obtained on 08/05/2018: Sodium 137, potassium 4.5, chloride 101, carbon dioxide 38, BUN 24, creatinine 0.91, glucose 83, calcium 8.4. ASSESSMENT AND PLAN: 1. ACUTE ON CHRONIC SYSTOLIC CONGESTIVE HEART FAILURE. The patient remains inotrope dependent. Do appreciate Cardiology's input on this. Continue with diuresis and monitor the patient's blood pressures and follow. 2. RECTUS SHEATH HEMATOMA. Overall, stabilized. The patient is not anticoagulated. 3. ACUTE ON CHRONIC HYPOXEMIC RESPIRATORY FAILURE. Overall continues to improve. 4. ATRIAL FIBRILLATION WITH RAPID VENTRICULAR RESPONSE. The patient is now rate controlled. Anticoagulation has been held due to hematoma. 5. OBESITY WITH A BMI OF 30-39. Encourage lifestyle modification. 6. PNEUMOTHORAX ON THE RIGHT. This is resolved, status post chest tube. 7. HYPOTHYROIDISM. Will continue levothyroxine. DISPOSITION: The patient is a full code. Depending on the patient's symptomatology and diagnostic findings, will reevaluate in the a.m. Time spent on this followup including assessment, plan, physical examination, patient education, and review of records is 25 minutes. Addendum: I was notified by nursing staff that the patient was hypotensive with MAPs in the 50s. 500cc fluid bolus given. Cardiology notified. STAT chest xray and labs order. DICTATING PHYSICIAN: MEL BOWER NP [id number] PHY#: [id number] ID: [id number] JOB#: [id number] ACCT: [id number] cc: > MTDD
--- NOTE | 2018-08-06 13:30 | RADIOLOGY REPORT (SQ) ---
EXAM DESCRIPTION: CHEST SINGLE VIEW COMPLETED DATE/TIME: 08/06/2018 1:19 pm REASON FOR STUDY: SOB COMPARISON: 08/02/2018 and earlier EXAM PARAMETERS: NUMBER OF VIEWS: One view. TECHNIQUE: Single frontal radiographic view of the chest acquired. RADIATION DOSE: NA LIMITATIONS: None. FINDINGS: LUNGS AND PLEURA: Complete opacification of the left lung with slight volume loss. Multif ocal right lung opacities, corresponding to the opacities seen on prior CT. Small right pleural effu luma. No pneumothorax MEDIASTINUM AND HILAR STRUCTURES: Partially opacified by the adjacent pathology. HEART AND VASCULAR STRUCTURES: Opacified by the adjacent lung pathology. BONES: No acute findings. HARDWARE: Left-sided central venous catheter tip terminates in the expected region of the proximal SV C. OTHER: No other significant finding. IMPRESSION: 1. Complete opacification the left lung with minimal associated volume loss. 2. Unchanged multifocal right lung opacities with small right pleural effusion. TECHNICAL DOCUMENTATION: JOB ID: [id number] [employer]- All Rights Reserved Reading location - IP/workstation name: [email or web address]
[2018-08-06] MEDS ORDERED: DOBUTAMINE HCL/D5W 500 MG/250 ML RTUINJ IV PRN (13:35)
[2018-08-06] MEDS ORDERED: NORMAL SALINE 500 ML IV ONE (14:30)
[2018-08-06] MEDS ORDERED: VANCOMYCIN HCL 0 MG in DEXTROSE 5%-WATER 250 ML IV NR (15:15)
--- NOTE | 2018-08-06 15:58 | RADIOLOGY REPORT (SQ) ---
EXAM DESCRIPTION: CT CHEST WITHOUT COMPLETED DATE/TIME: 08/06/2018 2:59 pm REASON FOR STUDY: Hypoxia, FU cXR COMPARISON: 08/02/2018 TECHNIQUE: CT scan performed of the chest without intravenous contrast. Images reviewed with lung, soft tissue and bone windows. Reconstructed coronal and sagittal MPR images reviewed. All images st ored on PACS. All CT scanners at this facility use dose modulation, iterative reconstruction, and/or weight based d osing when appropriate to reduce radiation dose to as low as reasonably achievable (ALARA). [facility]: Dose Right [facility]: CareDose [facility]: Dose Right [facility]: Teradose 4D [facility]: Smart [place] RADIATION DOSE: CT Rad equipment meets quality standard of care and radiation dose reduction techniq ues were employed. CTDIvol: 11.4 mGy. DLP: 454 mGy-cm. mGy. LIMITATIONS: No technical limitations. FINDINGS: LUNGS AND PLEURA: There is now complete collapse of the left lung. No endobronchial lesio n identified. Bilateral pleural effusions with increasing volume on the left, estimated 750 cc. Dif fuse airspace disease in the right lung not significantly changed. No progression. HILAR AND MEDIASTINAL STRUCTURES: No identified masses or abnormal nodes. No obvious aneurysm. HEART AND VASCULAR STRUCTURES: Cardiomegaly. UPPER ABDOMEN: No acute findings. THYROID AND OTHER SOFT TISSUES: No masses. No adenopathy. BONES: Nothing acute. HARDWARE: None in the chest. OTHER: Left central line tip in the SVC. IMPRESSION: Bilateral pneumonia and pleural effusions. Interval collapse of the left lung with incr ease in left pleural effusion. TECHNICAL DOCUMENTATION: JOB ID: [id number] Quality ID # [id number]: Final reports with documentation of one or more dose reduction techniques (e.g., Au tomated exposure control, adjustment of the mA and/or kV according to patient size, use of iterative reconstruction technique) 2010 [employer]- All Rights Reserved Reading location - IP/workstation name: [email or web address]
[2018-08-06] MEDS ORDERED: DEXTROSE 5%-WATER 250 ML with NOREPINEPHRINE BITARTRATE 4 MG IV PRN ×2 (16:10)
[2018-08-06] MEDS ORDERED: NORMAL SALINE 250 ML with FUROSEMIDE 250 MG IV PRN ×2 (16:11)
[2018-08-06 17:18] LABS: HEMATOCRIT 24.6 % (36.0-47.0); HEMOGLOBIN 8.1 g/dL (12.0-15.5); MEAN CORPUSCULAR HEMOGLOBIN 29.1 pg (27.0-33.4); MEAN CORPUSCULAR HGB CONC 32.8 g/dL (32.0-36.0); MEAN CORPUSCULAR VOLUME 89 fl (80-97); PLATELET COUNT 137 10^3/uL (150-450); RED BLOOD COUNT 2.77 10^6/uL (3.72-5.28); RED CELL DISTRIBUTION WIDTH 14.2 % (11.5-14.0); WHITE BLOOD COUNT 11.5 10^3/uL (4.0-10.5)
[2018-08-06 17:36] LABS: BLOOD UREA NITROGEN 26 mg/dL (7-20); CALCIUM 8.5 mg/dL (8.4-10.2); GLUCOSE 119 mg/dL (75-110)
[2018-08-06] MEDS ORDERED: NOREPINEPHRINE BITARTRATE INJ/PF 4 MG/4 ML SDV IV ONE (17:48)
[2018-08-06] MEDS ORDERED: VANCOMYCIN HCL 750 MG in DEXTROSE 5%-WATER 250 ML IV SCH (18:00)
[2018-08-06] MEDS ORDERED: PIPERACILLIN SODIUM/TAZOBACTAM 4.5 GM in NORMAL SALINE 100 ML IV SCH (18:00)
--- NOTE | 2018-08-06 18:06 | Progress Note ---
Provider Note Provider Note: CARDIOLOGY PROGRESS NOTE by Dr. rothman S1 on 08/06/2018. SUBJECTIVE: Although the patient states that she is feeling fine her systolic blood pressure is in the 60s and 70s. She is relatively asymptomatic and awake and oriented x3 but does seem to be lethargic. She states breathing is much better. She has no shortness of breath at rest. She continues to be in atrial flutter. There is no PND.. She does have chronic orthopnea. There is no leg edema. The patient is being transferred to the ICU to start the patient on a Levophed drip. The patient's dobutamine drip will be discontinued. The patient's and the patient's daughter want the patient transferred to [facility] for further management, including the patient's cardiomyopathy. Pleural effusions, which seems to have increased. And also the patient is heart failure. The hospitalist is trying to make arrangements for the transfer. In the interim the patient will be transferred to ICU to be started on Levophed drip. PHYSICAL EXAMINATION: The patient appears to be mildly obese. She appears to be chronically ill she is in no acute distress in spite of a low blood pressure. Selected Entries 08/06/18 16:07 Temperature 98.1 F Temperature Oral Source Pulse Rate 85 Respiratory 20 Rate Blood Pressure 88/44 L Blood Pressure 58 Mean BP Location Right Arm BP Position Supine O2 Sat by Pulse 96 Oximetry Oxygen Flow 2.00 Rate Oxygen Delivery Nasal Cannula Method HEAD: Atraumatic, normocephalic. EYES: Pupils equal round and reactive to light, extraocular movements intact, sclera anicteric, conjunctiva are normal. ENT: TMs normal, nares patent, oropharynx clear without exudates. Moist mucous membranes. NECK: Normal range of motion, supple without lymphadenopathy or JVD. Carotids are equal there is no bruits. There is no thyromegaly. There is no accessory muscles of respiration in use. Trachea central LUNGS: There is diminished air entry and prolonged expiration. There is occasional scattered rhonchi. There are no wet rales of CHF. There is diminished breath sounds in the bases with bilateral dry crackles. There is absent breath sounds on the left base and left mid zone of the lung. On palpation there is no chest wall tenderness. HEART: S1-S2 is heard. S1 is of variable intensity. There is no S3 gallop. There is no S4 gallop. There is systolic murmur left sternal border and apex without radiation. There is no rub.. ABDOMEN: Soft, nontender, normoactive bowel sounds. There is no hepatosplenic megaly no guarding, no rebound. No masses appreciated. EXTREMITIES: Normal range of motion, no pitting or edema. No clubbing or cyanosis. Femorals are well felt. There is no femoral bruits. Leg pulses are well felt. There is no DVT or cellulitis. There is no calf tenderness NEUROLOGICAL: Cranial nerves II through XII grossly intact. Normal speech, normal gait. The patient is awake alert oriented x3 with no focal deficits. PSYCH: Normal mood, normal affect. The patient judgment and insight are intact SKIN: Warm, Dry, normal turgor, no rashes or lesions noted. There is no petechia or ecchymosis Labs- All tests 24 hr 08/06/18 14:35 WBC 11.5 H RBC 2.77 L Hgb 8.1 L Hct 24.6 L MCV 89 MCH 29.1 MCHC 32.8 RDW 14.2 H Plt Count 137 L Chest X-Ray 07/21/18 11:44 IMPRESSION: Pleural effusions. Asymmetric edema or pneumonia. Chest CT 07/21/18 12:31 IMPRESSION: 1. Bilateral pleural effusions with mild compressive atelectasis in the lower lobes. 2. Cardiomegaly. Minimal pericardial effusion. 3. Possible 3 cm left renal mass. Head CT 07/23/18 23:42 IMPRESSION: Mild atrophy and small vessel ischemic change TECHNICAL DOCUMENTATION: Quality ID # [id number]: Final reports with documentation of one or more dose reduction techniques (e.g., Automated exposure control, adjustment of the mA and/or kV according to patient size, use of iterative reconstruction technique) copyright 2011 [employer]- All Rights Reserved Chest X-Ray 07/24/18 00:00 IMPRESSION: Bilateral pleural effusions, right greater than left. Chest X-Ray 07/27/18 00:00 IMPRESSION: Central venous access catheter placed via left IJ approach. Catheter tip at superior vena cava. No pneumothorax. Increased bilateral basilar airspace opacities and pleural effusions. Chest X-Ray 07/28/18 00:00 IMPRESSION: About 50% right pneumothorax post unsuccessful thoracentesis attempt. Report was called to the hospitalist surgeon who will place a large bore right chest tube shortly. Chest X-Ray 07/28/18 00:00 IMPRESSION: Interval insertion of a large caliber right chest tube with resolution of the right pneumothorax. Persistent vascular congestion. Persistent basilar opacities and small effusions. Chest Ultrasound 07/28/18 10:58 IMPRESSION: Unsuccessful portable thoracentesis under ultrasound guidance. We were unable to obtain fluid from the right pleural space. Patient developed an immediate large pneumothorax. Hospital surgeon notified, chest tube to be placed shortly. Chest X-Ray 07/29/18 00:00 IMPRESSION: There is a minimal right-sided pneumothorax, slightly decreased compared to prior examination with right-sided chest tube in position. There is significantly improved aeration of the bilateral lung bases. Unchanged cardiomegaly. Chest X-Ray 07/30/18 07:00 IMPRESSION: No pneumothorax. Right large bore chest tube in place. Stable cardiomegaly and bibasilar infiltrates Chest X-Ray 07/31/18 06:00 IMPRESSION: No change. No pneumothorax. Chest X-Ray 07/31/18 12:00 IMPRESSION: Trace right apical pneumothorax post right chest tube removal. Report discussed with Dr Benton, 1220 hours 07/31/2018 Abdomen/Pelvis CT 08/01/18 00:00 IMPRESSION: 1. There is a large, heterogeneous attenuation masslike lesion of the inferior left rectus musculature in sheath measuring approximately 10.6 x 5.8 x 5.3 cm, likely a hematoma in the stated setting of low hemoglobin. Recommend follow-up contrast-enhanced CT or MRI to ensure stability or resolution and exclude underlying solid mass such as sarcoma. 2. Anasarca and pleural effusions. 3. Extensive bibasilar ground-glass and consolidative airspace disease, better evaluated by dedicated chest imaging. 4. 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 Recommend follow-up CT angiogram at 1 year to ensure stability. Chest X-Ray 08/01/18 06:00 IMPRESSION: No pneumothorax. Resolving bilateral interstitial infiltrates compared to previous studies Chest CT 08/02/18 07:00 IMPRESSION: 1. Interval worsening in the appearance of the lungs since the prior examination dated 07/21/2018. New extensive bilateral multifocal patchy confluent areas of ground-glass consolidation in the lungs, may represent pneumo john, possibly edema. 2. Stable moderate to large right pleural effusion. Mild to moderate left pleural effusion, unchanged finding. 3. Interval placement of left subclavian central line with the tip in the region of the superior vena cava. 4. Additional stable findings as above. Chest CT 08/06/18 00:00 IMPRESSION: Bilateral pneumonia and pleural effusions. Interval collapse of the left lung with increase in left pleural effusion. Chest X-Ray 08/06/18 00:00 IMPRESSION: 1. Complete opacification the left lung with minimal associated volume loss. 2. Unchanged multifocal right lung opacities with small right pleural effusion. MPRESSION/RECOMMENDATION: 1. History of paroxysmal atrial fibrillation. At present patient is in chronic atrial flutter. We will continue the patient on Cardizem CD 180 mg p.o. every 12 hours, and increase as tolerated. Note with the patient rectus sheath hematoma/retroperitoneal bleed, she is not a candidate for chronic anticoagulant therapy. Protamine given to reverse the anticoagulation effect of IV heparin. Will not restart the patient on Eliquis. 2. Acute exacerbation of COPD: Improving continue respiratory treatments and oxygen. 3. congestive heart failure: Continue the patient on dobutamine. Continue the patient on Lasix. 4. Bibasilar pneumonia: Continue antibiotics. 5. CARDIOMYOPATHY: dobutamine drip. Continue Lasix and ARB and beta-blockers. 6. Status post attempted right-sided thoracentesis, which ended up with the patient having right-sided pneumothorax. She is status post large bore chest tube to relieve the pneumothorax. At present the pneumothorax is almost completely resolved.. The right chest tube is been removed, there is a residual small right apical pneumothorax. 7. Diabetes mellitus type 2 [id number] 8. Hypothyroidism: Continue thyroid replacement. 9. History of GERD: At present stable. Continue proton pump inhibitors. 10. History of depression: Continue antidepressants. 11. History of lymphoma: At present seems to be in remission 12. Rectus sheath hematoma secondary to retroperitoneal bleed. Hence this is definite contraindication for chronic anticoagulation. 13. Persistent but asymptomatic hypotension. Transfer the patient to ICU for Levophed drip. 14. Elevated digoxin level. We will recheck the patient's digoxin level. 15. Malnourished chronically ill patient: Consider nutritional supplement. Medications reviewed. Medications adjusted. Medical decision making is still of high complexity. Management plan discussed with the attending physician on the case. Note 40 minutes spent on this patient with more than 50% of time spent in direct patient care. We will follow
[2018-08-06 18:09] LABS: ANION GAP -1 (5-19); CARBON DIOXIDE 35 mmol/L (22-30); CHLORIDE 102 mmol/L (98-107); SODIUM 136.2 mmol/L (137-145)
[2018-08-06 18:32] LABS: FREE T4 (FREE THYROXINE) 1.5 ng/dL (0.78-2.19)
[2018-08-06 18:44] VITALS: BP 135/99
--- NOTE | 2018-08-06 18:44 | TRANSFER SUMMARY E ---
Transfer Summary NAME: RADHA LAGUERRE : 1945 AGE: 73Y ADMITTED: 07/21/2018 TRANSFERRED: 08/06/2018 CODE STATUS: DO NOT RESUSCITATE/DO NOT INTUBATE. OUTPATIENT AND CONSULTING IUSS MASTER ANALYST: Kristen Davis M.D. PRIMARY CARE PROVIDER: Juan Jose Kaba M.D. TRANSFER DIAGNOSES INCLUDE: 1. Cardiogenic shock. 2. Acute on chronic systolic and diastolic congestive heart failure. 3. Large rectus sheath hematoma secondary to anticoagulation, status post transfusion. 4. Paroxysmal atrial fibrillation. 5. Oxygen-dependent COPD. 6. Sleep apnea. 7. Tobacco dependency, continuous. 8. Massive left pleural effusion. 9. 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 10. Hypothyroidism. 11. Hyperlipidemia. 12. Anxiety disorder. 13. Status post gastric bypass. 14. GERD. 15. Healthcare-associated pneumonia. TRANSFER MEDICATIONS INCLUDE: 1. Dobutamine drip. 2. Norepinephrine to maintain a MAP greater than 65%. 3. Vancomycin as per pharmacy dosing. 4. Zosyn 4.5 g IV every 6 hours. 5. Xopenex 1.25 mg every 6 hours p.r.n. 6. Lipitor 80 mg p.o. at hour of sleep. 7. Lisinopril 5 mg p.o. every 12 hours. 8. Metoprolol p.o. every 12 hours. 9. Tylenol 650 mg p.o. every 6 hours p.r.n. 10. Buspar 15 mg p.o. every 12 hours. 11. Cymbalta 30 mg p.o. daily. 12. Lexapro 20 mg p.o. daily. 13. Lasix drip at 10 mg an hour. 14. Potassium chloride 40 mEq p.o. daily. 15. Colace 100 mg p.o. every 12 hours. 16. Pepcid 20 mg p.o. every 12 hours. 17. Lactobacillus acidophilus 250 mg p.o. daily. 18. Magnesium oxide 800 mg p.o. b.i.d. 19. Zofran 4 mg IV every 8 hours p.r.n. 20. Senna Plus 1 tablet p.o. daily p.r.n. 21. Pulmicort 0.5 mg nebule b.i.d. 22. Synthroid 0.125 mg p.o. every morning. 23. Melatonin 6 mg p.o. at hour of sleep. 24. Mucinex 1200 mg p.o. every 12 hours. 25. Singulair 10 mg p.o. at hour of sleep. 26. Multivitamin 1 tablet p.o. daily. 27. Breo 100 mcg/25 mcg 1 inhalation daily. DIET: Made n.p.o. for transfer. ACTIVITY: Will be made bed rest. CONDITION: Critical. DIAGNOSTICS: Lab values are as follows. Hematology obtained on 08/05/2018: WBCs are 1.6, hemoglobin is 8.0, hematocrit is 23.5, platelet count is 134,000. ABG obtained on 07/22/2017: The pH is 7.49, PCO2 32.1, PO2 87.8, bicarb 24.1, O2 saturation is 97.4. Chemistry obtained on 08/05/2018: Sodium is 137, potassium is 4.5, chloride 101, carbon dioxide 38, BUN 24, creatinine 0.91, glucose is 83. A1c is 4.8. Calcium is 8.4, magnesium is 2.2. Bilirubin is 0.5, AST 58, ALT 46, alk phos 82. CK is 105, CK MB is 2.59. Troponin is 0.071. BNP is 10,200. Total protein 4.3, albumin is 2.0. Triglycerides are 73, cholesterol is 90, LDL 48, VLDL is 15. TSH is pending. Urinalysis obtained on 07/21/2018: Color yellow, appearance slightly cloudy, pH 6.0, specific gravity 1.017, protein negative, glucose negative, ketones negative, occult blood negative, nitrite negative, bili negative, urobilinogen negative, leukocyte esterase negative, WBC 3, RBC 1, casts 18, mucus many, ascorbic acid is negative. Serology: CF obtained on 08/03/2018 is negative. Microbiology: Blood cultures obtained on 07/30/2018 revealed no growth. IMAGING: CT of the abdomen and pelvis obtained on 08/03/2018 reveals a large, attenuated, mass-like lesion of the inferior left rectus musculature sheath measuring approximately 10 x 5 x 5, likely a hematoma. Findings of anasarca and pleural effusion, extensive ground-glass opacities, consolidative air-space disease with incidental calcified aneurysm in the distal left spleen and artery or terminal branch measuring 1.5 cm. Chest x-ray obtained on 08/06/2018 reveals complete opacification of the left lung with minimal associated volume loss, unchanged, and multifocal right lung opacities with a small right pleural effusion. Chest CT obtained on 08/06/2018 reveals bilateral pneumonia and pleural effusions with interval collapse of the left lung with increase in left pleural effusion. Echocardiogram obtained on 07/24/2018 reveals an EF of 25% with severe global hypokinesis with [id number] mitral regurgitation with [id number] tricuspid regurgitation with moderate pulmonary hypertension. PHYSICAL EXAMINATION: GENERAL: The patient is a frail, debilitated-appearing 73-year-old female who is awake, alert. She is oriented to person, place, time, and situation. She is verbal, conversational, does not appear to be distressed. VITAL SIGNS: As follows: Temperature is 98.1, pulse 85, respirations 20, blood pressure is 88/44, oxygen saturation is 96% on 2 L nasal cannula. SKIN: Warm and dry. No rash. She is not diaphoretic. HEENT: Pupils equal, round, and reactive to light and accommodation. Conjunctivae pink. The patient appears to have JVD behind her right ear. CARDIOVASCULAR: Heart is irregular at this time. No rub. CHEST: The patient is quite diminished on the left side with evidence of basal crackles, symmetrical, unlabored. ABDOMEN: Mildly distended. No area of focal tenderness. Bowel sounds are present. EXTREMITIES: No clubbing or cyanosis. Appears edema has resolved, does still have dependent edema of the left upper extremity. PSYCHIATRIC: Appropriate affect. Pleasant mood. HISTORY OF PRESENT ILLNESS: The patient is a 73-year-old female with a past medical history that is remarkable for paroxysmal atrial fibrillation as well as diastolic heart failure and a chronic left bundle branch block. The patient presented to the emergency department on 07/21 with a chief complaint of shortness of breath. The patient did have a heart catheterization in August of 2017. The patient came to this hospital, had an abnormal stress test, and subsequently was transferred to [facility] for cardiac catheterization. By verbal report, it appears that the patient had clean coronaries. Of note also, the patient apparently claims pulmonary toxicity related to amiodarone. While in the emergency department the patient was found to have a BNP of 6000. She presented with anasarca and was found to be in AFib with RVR. The patient who is on oral Cardizem at home as well as Eliquis was covered with a Cardizem drip and was referred to the hospitalist for admission and management. HOSPITAL COURSE: The patient was admitted to the intermediate care unit. The patient was found to transition to sinus rhythm and, therefore, she was maintained with metoprolol at that point. The patient continued on Eliquis; however, she developed a large rectus sheath hematoma on 08/01/2018, and subsequently all anticoagulation was stopped. The patient's hemoglobin went from 11 to 7, and the patient did receive 2 units of packed red blood cells. The patient's hemoglobin has remained in the 8 range for a couple of days now, and it appears that the hematoma has self-limited. The patient was diuresed during her stay. I and O is not completely accurate; however, the patient's presenting weight was 87.4 kg. However, she is now down to 79 kg. The patient appears to be 4 L negative in the last 5 days; however, anything before this is not certain. The patient was being diuresed with Lasix 40 mg IV every 12 hours for which she was maintaining well, although she did have soft blood pressures. The patient was added dobutamine on 08/04/2018 after becoming increasingly hypotensive. The patient continued to diurese and blood pressures remained with MAPs between 55 and 65, but the patient was mentating well. The patient's peripheral edema had improved; however, the patient still appears to be significantly volume up with JVD as well as some abdominal distention and findings of significant pleural effusion. The patient did have a massive right-sided pleural effusion that was subsequently drained with IR; however, the patient developed a pneumothorax that required a chest tube by the surgicalist service. The chest tube has since been removed and the patient's right lung appears to be quite stable, other than an area that has evolved to appear to be some consolidation consistent with pneumonia. The patient has been covered with HCAP in the interim. The patient did have severely diminished breath sounds on the left side and chest x-ray does reveal whiteout of the left lung, reviewed by both the surgicalist as well as radiologist consistent with a massive left pleural effusion which has caused complete atelectasis of the left lobe. I did discuss the case with the patient's daughter, Savi, who may be reached at [phone], as well as the patient. The patient at this time is a DO NOT RESUSCITATE/DO NOT INTUBATE; however, they would like transfer to tertiary care for evaluation by [facility] to optimize the patient's current state. At the time of this dictation there are some labs that are pending, including a TSH and T4 as well as lactic acid. During this stay the patient did not have significant troponins. She peaked at 0.115 and is currently at 0.071. The patient does not complain of any chest pain and, again, I address the patient apparently had clean coronaries during a previous cardiac catheterization. The patient's echo at this time reveals an EF of 20% to 25%, severe global hypokinesis, and has failed management, including with inotropes. I am transferring the patient at this time to the critical care unit to start the patient on norepinephrine in an effort to get her MAP greater than 65% so she can be transported. The patient is comfortably oxygenating with 3 L nasal cannula and is agreeable to this plan. As always, the hospitalists at [facility] would like to thank [facility] and especially the [facility] for graciously participating in the care of this nice lady. Time spent on this transfer, including assessment/plan, physical examination, patient education, review of records, as well as critical care time, is 90 minutes. ADDENDUM: Upon arrival daughter requested the patient be a full code. Patient agreed with daughter's wishes and is now a FULL CODE. DICTATING PHYSICIAN: MEL BOWER NP [id number] PHY#: [id number] ID: [id number] JOB#: [id number] ACCT: [id number] cc:MEL BOWER NP > MTDD
[2018-08-06 18:46] LABS: THYROID STIMULATING HORMONE 16.8 uIU/mL (0.47-4.68)
[2018-08-06] MEDS ORDERED: GUAIFENESIN 600 MG TABLET.SA PO SCH (22:00)
== END 2018-08-06 20:55 | disposition short-term general hospital (02) | DRG 308 ==
LOC: ER 11:12 → EH 15:10 → 3S 07-22 00:31 → ICU 08-06 17:32
PROVIDERS: ADMIT Internal Medicine; ATTEND Internal Medicine
PROC: 3E0F73Z Introduction of Anti-inflammatory into Respiratory Tract, Via Natural or Artificial Opening (ICD-10-PCS; 2018-07-21)
PROC: 02HV33Z Insertion of Infusion Device into Superior Vena Cava, Percutaneous Approach (ICD-10-PCS; 2018-07-27)
PROC: B548ZZA Ultrasonography of Superior Vena Cava, Guidance (ICD-10-PCS; 2018-07-27)
PROC: 0W9930Z Drainage of Right Pleural Cavity with Drainage Device, Percutaneous Approach (ICD-10-PCS; principal; 2018-07-28)
PROC: 0BJK3ZZ Inspection of Right Lung, Percutaneous Approach (ICD-10-PCS; 2018-07-28)
PROC: 30233L1 Transfusion of Nonautologous Fresh Plasma into Peripheral Vein, Percutaneous Approach (ICD-10-PCS; 2018-08-01)
PROC: 30233N1 Transfusion of Nonautologous Red Blood Cells into Peripheral Vein, Percutaneous Approach (ICD-10-PCS; 2018-08-01)
DX: I48.0 Paroxysmal atrial fibrillation (principal); J96.21 Acute and chronic respiratory failure with hypoxia; K66.1 Hemoperitoneum; I50.43 Acute on chronic combined systolic (congestive) and diastolic (congestive) heart failure; J91.8 Pleural effusion in other conditions classified elsewhere; J44.1 Chronic obstructive pulmonary disease with (acute) exacerbation; G93.1 Anoxic brain damage, not elsewhere classified; J93.9 Pneumothorax, unspecified; E87.1 Hypo-osmolality and hyponatremia; I11.0 Hypertensive heart disease with heart failure; G47.30 Sleep apnea, unspecified; E03.9 Hypothyroidism, unspecified; K21.9 Gastro-esophageal reflux disease without esophagitis; F32.9 Major depressive disorder, single episode, unspecified; F17.210 Nicotine dependence, cigarettes, uncomplicated; E87.6 Hypokalemia; E11.621 Type 2 diabetes mellitus with foot ulcer; L97.529 Non-pressure chronic ulcer of other part of left foot with unspecified severity; L97.519 Non-pressure chronic ulcer of other part of right foot with unspecified severity; I48.2 Chronic atrial fibrillation; T45.515A Adverse effect of anticoagulants, initial encounter; I95.9 Hypotension, unspecified; E78.5 Hyperlipidemia, unspecified; F41.9 Anxiety disorder, unspecified; I44.7 Left bundle-branch block, unspecified; N18.3 Chronic kidney disease, stage 3 (moderate); E11.22 Type 2 diabetes mellitus with diabetic chronic kidney disease; Z87.891 Personal history of nicotine dependence; Z79.899 Other long term (current) drug therapy; Z79.890 Hormone replacement therapy; Z98.84 Bariatric surgery status; Z99.81 Dependence on supplemental oxygen; Z79.01 Long term (current) use of anticoagulants; Z88.6 Allergy status to analgesic agent; Z88.2 Allergy status to sulfonamides; Z88.8 Allergy status to other drugs, medicaments and biological substances; Z90.49 Acquired absence of other specified parts of digestive tract; Z85.72 Personal history of non-Hodgkin lymphomas; Z83.6 Family history of other diseases of the respiratory system; Z80.9 Family history of malignant neoplasm, unspecified; Z82.49 Family history of ischemic heart disease and other diseases of the circulatory system
CPT/HCPCS: 36415; 36430; 36600; 51701; 70450; 71045; 71250; 74176; 76604; 80048; 80053; 80061; 80162; 81001; 82550; 82553; 82803; 82962; 83036; 83605; 83735; 83880; 84439; 84443; 84484; 85025; 85027; 85379; 85610; 85730; 86850; 86900; 86901; 86920; 87040; 87493; 93005; 93010; 93306; 94660; 94667; 94668; 94762; 96374; 99285; C1751; J0456; J0696; J1160; J1250; J1630; J1644; J1885; J1940; J2720; J2920; J2930; J3475; J3480; J3490; J7040; J7060; J7620; P9016; P9017; P9047

== ENCOUNTER → 2018-10-21 | Outpatient (CLI) | payer MEDICARE ==
--- NOTE | 2018-10-21 20:03 | XCELERA REPORT ---
[address] [address] Transthoracic Echocardiogram Report Name: RADHA LAGUERRE Age: 73 yrs Gender: Female : 1945 Patient Status: Outpatient Patient Location: [facility] Study Date: 10/21/2018 09:14 AM Height: 62 in Weight: 160 lb BSA: 1.7 m2 Procedure: A two-dimensional transthoracic echocardiogram with color flow and Doppler was performed. Study Quality: Fair. Reason For Study: atrial fibrillation History: atrial fibrillation. Ordering Physician: ZEESHAN BISHOP Performed By: Kelin Angeles Interpretation Summary The left ventricle is mildly dilated. There is normal left ventricular wall thickness. Left ventricular systolic function is low normal. LV EF is 55% LV diastolic function not assessed. The left ventricular wall motion is normal. There is no thrombus. Probably no ASD ,VSD , or PFO. The right ventricle is normal in size and function. The right atrium is normal. The left atrium is moderately dilated. There is mild mitral leaflet calcification. There is mild mitral annular calcification. There is no evidence of mitral valve prolapse. There is no vegetation seen on the mitral valve. There is no mitral valve stenosis. There is a trace amount of mitral regurgitation There is no aortic valvular vegetation. There is mild aortic stenosis There is a peak gradient of 21 mm of Hg. No hemodynamically significant valvular aortic stenosis. There is no LVOT obstruction. There is a mild amount of aortic regurgitation There is no tricuspid stenosis. There is a trace amount of tricuspid regurgitation Right ventricular systolic pressure is normal. RVSP is 18 to 23 mm of Hg , with RA mean of 5 to 10. There is no pulmonic valvular stenosis. There is a trace amount of pulmonic regurgitation The aortic root is normal size. The inferior vena cava appeared normal and decreased > 50% with respiration (RAP 5-10 mmHg) Minimal pericardial effusion. There are no echocardiographic or Doppler indications for cardiac tamponade MMode/2D Measurements & Calculations RVDd: 2.7 cm LVIDd: 6.1 cm FS: 24.6 % Ao root diam: 2.7 cm IVSd: 0.83 cm LVIDs: 4.6 cm EDV(Teich): 183.5 ml Ao root area: 5.8 cm2 LVPWd: 1.0 cm ESV(Teich): 95.6 ml EF(Teich): 47.9 % LVOT diam: 1.9 cm LVOT area: 2.7 cm2 Doppler Measurements & Calculations MV E max ludmila: MV dec slope: Ao V2 max: AI max ludmila: 42.9 cm/sec 203.9 cm/sec2 232.4 cm/sec 383.3 cm/sec MV A max ludmila: MV dec time: Ao max PG: AI max P.8 mmHg 36.4 cm/sec 0.21 sec 21.6 mmHg AI dec slope: MV E/A: 1.2 Ao V2 mean: 257.7 cm/sec2 172.0 cm/sec AI P1/2t: 435.5 msec Ao mean P.8 mmHg Ao V2 VTI: 36.5 cm ROSALIE(I,D): 1.2 cm2 ROSALIE(V,D): 1.3 cm2 LV V1 max PG: SV(LVOT): 45.2 ml PA V2 max: PI end-d ludmila: 4.6 mmHg 77.5 cm/sec 78.5 cm/sec LV V1 mean PG: PA max P.5 mmHg 2.4 mmHg LV V1 max: 106.8 cm/sec LV V1 mean: 73.1 cm/sec LV V1 VTI: 16.5 cm TR max ludmila: 182.2 cm/sec TR max P.3 mmHg Left Ventricle The left ventricle is mildly dilated. There is normal left ventricular wall thickness. Left ventricular systolic function is low normal. LV EF is 55%. LV diastolic function not assessed. The left ventricular wall motion is normal. There is no thrombus. Probably no ASD ,VSD , or PFO. Right Ventricle The right ventricle is normal in size and function. Atria The right atrium is normal. The left atrium is moderately dilated. Mitral Valve There is mild mitral leaflet calcification. There is mild mitral annular calcification. There is no evidence of mitral valve prolapse. There is no vegetation seen on the mitral valve. There is no mitral valve stenosis. There is a trace amount of mitral regurgitation. Aortic Valve There is no aortic valvular vegetation. There is mild aortic stenosis. There is a peak gradient of 21 mm of Hg. No hemodynamically significant valvular aortic stenosis. There is no LVOT obstruction. There is a mild amount of aortic regurgitation. Tricuspid Valve There is no tricuspid stenosis. There is a trace amount of tricuspid regurgitation. Right ventricular systolic pressure is normal. RVSP is 18 to 23 mm of Hg , with RA mean of 5 to 10. Pulmonic Valve There is no pulmonic valvular stenosis. There is a trace amount of pulmonic regurgitation. Great Vessels The aortic root is normal size. The inferior vena cava appeared normal and decreased > 50% with respiration (RAP 5-10 mmHg). Effusions Minimal pericardial effusion. There are no echocardiographic or Doppler indications for cardiac tamponade. : ZEESHAN BISHOP > Kristen Davis
== END ==
LOC: SP 08:56
PROVIDERS: ATTEND Family Medicine
DX: I48.0 Paroxysmal atrial fibrillation (principal); I50.43 Acute on chronic combined systolic (congestive) and diastolic (congestive) heart failure
CPT/HCPCS: 93306

== ENCOUNTER 2019-05-01 17:14 | Emergency (ER) | payer MEDICARE ==
[2019-05-01 18:06] LABS: ABSOLUTE BASOPHILS # (AUTO) 0.1 10^3/uL (0.0-0.2); ABSOLUTE EOSINOPHILS # (AUTO) 0.1 10^3/uL (0.0-0.6); ABSOLUTE LYMPHOCYTES (AUTO) 1.4 10^3/uL (0.5-4.7); ABSOLUTE MONOCYTES (AUTO) 0.6 10^3/uL (0.1-1.4); ABSOLUTE NEUT (AUTO) 3.4 10^3/uL (1.7-8.2); EOSINOPHILS % (AUTO) 1.7 % (0-6); HEMATOCRIT 34.4 % (36.0-47.0); HEMOGLOBIN 11.4 g/dL (12.0-15.5); LYMPHOCYTES % (AUTO) 24.9 % (13-45); MEAN CORPUSCULAR HEMOGLOBIN 31.6 pg (27.0-33.4); MEAN CORPUSCULAR HGB CONC 33.2 g/dL (32.0-36.0); MEAN CORPUSCULAR VOLUME 95 fl (80-97); MONOCYTES % (AUTO) 10.4 % (3-13); PLATELET COUNT 178 10^3/uL (150-450); RED BLOOD COUNT 3.62 10^6/uL (3.72-5.28); RED CELL DISTRIBUTION WIDTH 15.4 % (11.5-14.0); TOTAL CELLS COUNTED % (AUTO) 100 %; WHITE BLOOD COUNT 5.5 10^3/uL (4.0-10.5)
[2019-05-01 18:35] LABS: ALBUMIN 2.6 g/dL (3.5-5.0); ALKALINE PHOSPHATASE 98 U/L (38-126); ANION GAP 10 (5-19); ASPARTATE AMINO TRANSFERASE 72 U/L (14-36); BILIRUBIN,DIRECT 0.3 mg/dL (0.0-0.4); BILIRUBIN,TOTAL 0.4 mg/dL (0.2-1.3); BLOOD UREA NITROGEN 14 mg/dL (7-20); CALCIUM 8.1 mg/dL (8.4-10.2); CARBON DIOXIDE 25 mmol/L (22-30); CHLORIDE 101 mmol/L (98-107); GLUCOSE 89 mg/dL (75-110); POTASSIUM 4.1 mmol/L (3.6-5.0); TOTAL PROTEIN 5.7 g/dL (6.3-8.2)
[2019-05-01 18:36] LABS: ALCOHOL < 10 mg/dL (NONE DETECTED)
--- NOTE | 2019-05-01 18:47 | ER Document Report ---
ED General - General Chief Complaint: Probable Seizure Stated Complaint: SEIZURE Time Seen by Provider: 05/01/19 18:33 Mode of Arrival: Medic Information source: Patient Notes: This 74-year old woman presents to the emergency department with a complaint of an episode in which she "felt funny". She states that she believes she had a seizure, no prior history of seizure disorder. Apparently the episode lasted for about 45 seconds, there was no postictal. And presently she is feeling fine with no residual abnormality. Has medical history significant for hypertension, diabetes mellitus, COPD, sleep apnea, atrial fibrillation, and CHF. She was brought to the emergency department by EMS and was noted to have a glucose of 48. Patient was given IV glucose and her symptoms resolved. TRAVEL OUTSIDE OF THE [place] IN LAST 30 DAYS: No - Related Data Allergies/Adverse Reactions: codeine [Codeine] Allergy (Verified 07/05/18 16:18) Sulfa (Sulfonamide Antibiotics) Allergy (Verified 07/05/18 16:18) rash; itching haloperidol [From Haldol] Adverse Reaction (Unverified 08/06/18 18:21) zolpidem tartrate [From Ambien] Adverse Reaction (Verified 07/05/18 16:18) sleep walk Past Medical History - Social History Smoking Status: Never Smoker Family History: Reviewed & Not Pertinent, COPD Patient has suicidal ideation: No Patient has homicidal ideation: No - Past Medical History Cardiac Medical History: Reports: Hx Atrial Fibrillation, Hx Congestive Heart Failure - Diastolic, Hx Hypertension, Hx Heart Murmur Pulmonary Medical History: Reports: Hx COPD, Hx Pneumonia, Hx Sleep Apnea Neurological Medical History: Denies: Hx Seizures Endocrine Medical History: Reports: Hx Diabetes Mellitus Type 2, Hx Hypothyroidism. Denies: Hx Diabetes Mellitus Type 1, Hx Hyperthyroidism Renal/ Medical History: Denies: Hx Peritoneal Dialysis Malignancy Medical History: Reports: Hx Lymphoma GI Medical History: Reports: Hx Gastroesophageal Reflux Disease. Denies: Hx Cirrhosis, Hx Hepatitis Musculoskeletal Medical History: Denies Hx Fibromyalgia, Denies Hx Gout Skin Medical History: Denies Hx Eczema, Denies Hx Psoriasis Psychiatric Medical History: Reports: Hx Depression Infectious Medical History: Denies: Hx Hepatitis Past Surgical History: Reports: Hx Abdominal Surgery - GBP, Hx Cholecystectomy, Hx Gastric Bypass Surgery, Hx Thyroid Surgery, Hx Tonsillectomy, Other - panniiculectomy - Immunizations Hx Diphtheria, Pertussis, Tetanus Vaccination: Yes Hx Pneumococcal Vaccination: 06/03/13 Review of Systems - Review of Systems Notes: Constitutional: + Hypoglycemic episode. HENT: Negative for sore throat. Eyes: Negative for visual changes. Cardiovascular: Negative for chest pain. Respiratory: Negative for shortness of breath. Gastrointestinal: Negative for abdominal pain, vomiting or diarrhea. Genitourinary: Negative for dysuria. Musculoskeletal: Negative for back pain. Skin: Negative for rash. Neurological: Negative for headaches, weakness or numbness. 10 point ROS negative except as marked above and in HPI. Physical Exam - Vital signs Vitals: Resp Pulse Ox 20 97 05/01/19 17:33 05/01/19 17:33 - Notes Notes: VS: reviewed GEN: pleasant elderly female in no acute distress, HEENT: NCAT, EOMi, PERRL, oropharynx clear, airway patent, mucous membranes moist, EAC clear, TMs intact, NECK: thyroid not palpable, no LAD, carotic pulse 2+B, no bruits, no JVD RESP: clear the wheezes, rales or rhonchi Chest: heart: regular rate and rhythm, no murmur,gallop or rub, nontender ABD: +BS, distended, nontender, no HSM PULSES: 2+femoral B, 1+ PT/DP B EXT no edema to non-tender; non clubbing, cyanosis SKIN: warm and intact NEURO: AOX3; remainder of exam nonfocal Course - Re-evaluation Re-evalutation: 05/01/19 18:48 Patient is doing well, given hypoglycemic episode, will get dinner tray or food for her to eat. Monitoring glucose closely and disposition will be determined by how stable her glucose is. I explained this to the patient and she is in agreement with that plan. 05/01/19 20:48 Patient was fed in the emergency department, repeat blood sugar is 140. I have explained to her that she does not have a seizure but likely hypoglycemic related changes. The patient is satisfied with this plan and is now ready to be discharged home. - Vital Signs Vital signs: Temp Pulse Resp BP Pulse Ox 19 128/82 H 100 05/01/19 19:01 05/01/19 19:01 05/01/19 19:01 - Laboratory Result Diagrams: 05/01/19 17:37 05/01/19 17:37 Laboratory results interpreted by me: 05/01/19 05/01/19 05/01/19 17:24 17:37 17:37 RBC 3.62 L Hgb 11.4 L Hct 34.4 L RDW 15.4 H Sodium 135.8 L POC Glucose 135 H Calcium 8.1 L AST 72 H Total Protein 5.7 L Albumin 2.6 L 05/01/19 18:49 I have reviewed laboratory data and used this information for the treatment decisions regarding the patient. Discharge - Discharge Clinical Impression: Hypoglycemia Condition: Good Disposition: HOME, SELF-CARE Instructions: Hypoglycemia ([facility]) Additional Instructions: Please monitor the glucose and treat if blood sugar is low. Return to the emergency department if needed.
[2019-05-01 20:59] LABS: APPEARANCE,URINE CLEAR; BILIRUBIN,URINE NEGATIVE (NEGATIVE); COLOR,URINE YELLOW; GLUCOSE, URINE NEGATIVE (NEGATIVE); KETONES,URINE NEGATIVE (NEGATIVE); LEUKOCYTE ESTERASE,URINE SMALL (NEGATIVE); NITRITE,URINE NEGATIVE (NEGATIVE); PROTEIN,URINE NEGATIVE (NEGATIVE); URINE SPECIFIC GRAVITY 1.009; UROBILINOGEN,URINE NEGATIVE mg/dL (<2.0)
[2019-05-01 21:05] VITALS: BP 124/78
[2019-05-01 21:11] LABS: URINE AMPHETAMINES SCREEN NEGATIVE; URINE BARBITURATES SCREEN NEGATIVE; URINE BENZODIAZEPINES SCREEN NEGATIVE; URINE COCAINE SCREEN NEGATIVE; URINE MARIJUANA (THC) SCREEN NEGATIVE; URINE METHADONE SCREEN NEGATIVE; URINE PHENCYCLIDINE SCREEN NEGATIVE
== END 2019-05-01 21:19 | disposition home or self-care (01) ==
LOC: ER 17:14
DX: E11.649 Type 2 diabetes mellitus with hypoglycemia without coma (principal); I10 Essential (primary) hypertension; J44.9 Chronic obstructive pulmonary disease, unspecified; Z88.6 Allergy status to analgesic agent; Z88.5 Allergy status to narcotic agent; Z88.2 Allergy status to sulfonamides
CPT/HCPCS: 36415; 80053; 80307; 81001; 82962; 83735; 85025; 99284

== ENCOUNTER 2019-05-29 15:23 | Inpatient (IN) | payer MEDICARE ==
--- NOTE | 2019-05-29 16:27 | RADIOLOGY REPORT (SQ) ---
EXAM DESCRIPTION: CHEST 2 VIEWS COMPLETED DATE/TIME: 05/29/2019 4:14 pm REASON FOR STUDY: cough/sob COMPARISON: 08/08/2018 EXAM PARAMETERS: NUMBER OF VIEWS: two views TECHNIQUE: Digital Frontal and Lateral radiographic views of the chest acquired. RADIATION DOSE: NA LIMITATIONS: none FINDINGS: LUNGS AND PLEURA: There are moderate to large bilateral pleural effusions with bibasilar i nfiltrates left probably greater than right. No pneumothorax. There has been improvement on the lef t when compared to prior chest film. Right pleural effusion is larger than noted on prior study. MEDIASTINUM AND HILAR STRUCTURES: No masses or contour abnormalities. HEART AND VASCULAR STRUCTURES: Heart is slightly enlarged. There is central vascular prominence but no overt failure. BONES: No acute findings. HARDWARE: None in the chest. OTHER: No other significant finding. IMPRESSION: Moderate right pleural effusion and small left effusion. Left lower lobe infiltrate con sistent with pneumonia. Probable underlying atelectasis pneumonia in the right base as well. TECHNICAL DOCUMENTATION: JOB ID: [id number] [employer]- All Rights Reserved Reading location - IP/workstation name: [email or web address]
[2019-05-29] MEDS ORDERED: AZITHROMYCIN 250 MG TABLET PO ONE (17:21)
[2019-05-29] MEDS ORDERED: CEFTRIAXONE 2 GM/D5W RTU 2 GM/50 ML RTUPB IV ONE (17:21)
[2019-05-29 18:10] LABS: ABSOLUTE BASOPHILS # (AUTO) 0.1 10^3/uL (0.0-0.2); ABSOLUTE LYMPHOCYTES (AUTO) 1.6 10^3/uL (0.5-4.7); ABSOLUTE MONOCYTES (AUTO) 0.7 10^3/uL (0.1-1.4); ABSOLUTE NEUT (AUTO) 5.6 10^3/uL (1.7-8.2); BASOPHILS % (AUTO) 0.8 % (0-2); EOSINOPHILS % (AUTO) 0.6 % (0-6); HEMATOCRIT 37.7 % (36.0-47.0); HEMOGLOBIN 12.7 g/dL (12.0-15.5); LYMPHOCYTES % (AUTO) 20.1 % (13-45); MEAN CORPUSCULAR HEMOGLOBIN 31.3 pg (27.0-33.4); MEAN CORPUSCULAR HGB CONC 33.6 g/dL (32.0-36.0); MEAN CORPUSCULAR VOLUME 93 fl (80-97); MONOCYTES % (AUTO) 8.6 % (3-13); PLATELET COUNT 165 10^3/uL (150-450); RED BLOOD COUNT 4.04 10^6/uL (3.72-5.28); RED CELL DISTRIBUTION WIDTH 14.1 % (11.5-14.0); SEGMENTED NEUTROPHILS % (AUTO) 69.9 % (42-78); TOTAL CELLS COUNTED % (AUTO) 100 %
[2019-05-29 18:21] LABS: ALBUMIN 2.9 g/dL (3.5-5.0); ALKALINE PHOSPHATASE 100 U/L (38-126); ANION GAP 6 (5-19); ASPARTATE AMINO TRANSFERASE 50 U/L (14-36); BILIRUBIN,TOTAL 0.8 mg/dL (0.2-1.3); BLOOD UREA NITROGEN 12 mg/dL (7-20); CALCIUM 8.8 mg/dL (8.4-10.2); CARBON DIOXIDE 28 mmol/L (22-30); CHLORIDE 103 mmol/L (98-107); GLUCOSE 80 mg/dL (75-110); POTASSIUM 4.7 mmol/L (3.6-5.0); TOTAL PROTEIN 5.9 g/dL (6.3-8.2)
[2019-05-29 18:41] LABS: TROPONIN I 0.062 ng/mL
--- NOTE | 2019-05-29 19:30 | ER Document Report ---
ED General - General Chief Complaint: Shortness Of Breath Stated Complaint: TROUBLE BREATHING Time Seen by Provider: 05/29/19 15:36 Primary Care Provider: WENDY DAVILA MD [Primary Care Provider] - Follow up as needed Mode of Arrival: Medic Information source: Patient TRAVEL OUTSIDE OF THE [place] IN LAST 30 DAYS: No - HPI Notes: Patient was brought in by ambulance due to significant shortness of breath. Patient states she has not been taking her Lasix because she is unable to sleep. She states she has to get up several times during the night to urinate when she takes Lasix. Therefore for the last several days she has not taken it. She has been coming increasingly more short of breath of the last several days. No ch est pain. No fevers. She has had a cough that is been nonproductive. Patient is had no vomiting or diarrhea. She states she does have a history of CHF and COPD. She states she never was a smoker. Patient shortness of breath has been constant. It is been moderate to severe. It is worse with exertion and better with rest. No known radiation of the symptoms. - Related Data Allergies/Adverse Reactions: codeine [Codeine] Allergy (Verified 05/29/19 18:32) Sulfa (Sulfonamide Antibiotics) Allergy (Verified 05/29/19 18:32) rash; itching haloperidol [From Haldol] Adverse Reaction (Verified 05/29/19 18:32) zolpidem tartrate [From Ambien] Adverse Reaction (Verified 05/29/19 18:32) sleep walk Home Medications: Aspirin. Atorvastatin. Bisoprolol. Buspirone. Digoxin. Duloxetine. Fluticasone. Furosemide. Levothyroxine. Entresto. Pantoprazole Past Medical History - General Information source: Patient - Social History Smoking Status: Never Smoker Frequency of alcohol use: None Drug Abuse: None Family History: Reviewed & Not Pertinent, COPD Patient has suicidal ideation: No Patient has homicidal ideation: No - Past Medical History Cardiac Medical History: Reports: Hx Atrial Fibrillation, Hx Congestive Heart Failure - Diastolic, Hx Hypertension, Hx Heart Murmur Pulmonary Medical History: Reports: Hx COPD, Hx Pneumonia, Hx Sleep Apnea Neurological Medical History: Denies: Hx Seizures Endocrine Medical History: Reports: Hx Diabetes Mellitus Type 2, Hx Hypothyr oidism. Denies: Hx Diabetes Mellitus Type 1, Hx Hyperthyroidism Renal/ Medical History: Denies: Hx Peritoneal Dialysis Malignancy Medical History: Reports: Hx Lymphoma GI Medical History: Reports: Hx Gastroesophageal Reflux Disease. Denies: Hx Cirrhosis, Hx Hepatitis Musculoskeletal Medical History: Denies Hx Fibromyalgia, Denies Hx Gout Skin Medical History: Denies Hx Eczema, Denies Hx Psoriasis Psychiatric Medical History: Reports: Hx Depression Infectious Medical History: Denies: Hx Hepatitis Past Surgical History: Reports: Hx Abdominal Surgery - GBP, Hx Cholecystectomy, Hx Gastric Bypass Surgery, Hx Thyroid Surgery, Hx Tonsillectomy, Other - panniiculectomy - Immunizations Hx Diphtheria, Pertussis, Tetanus Vaccination: Yes Hx Pneumococcal Vaccination: 06/03/13 Review of Systems - Review of Systems Constitutional: Malaise, Weakness Cardiovascular: denies: Chest pain, Palpitations Respiratory: Cough, Short of breath. denies: Hemoptysis -: Yes All other systems reviewed and negative Physical Exam - Vital signs Vitals: Temp Pulse Resp BP Pulse Ox 97.9 F 70 20 122/95 H 98 05/29/19 16:00 05/29/19 16:00 05/29/19 16:00 05/29/19 16:00 05/29/19 16:00 Interpretation: Normal - General General appearance: Appears well, Alert - HEENT Head: Normocephalic, Atraumatic Eyes: Normal Pupils: PERRL Neck: Other - Patient has JVD to just below the angle of the jaw bilaterally - Respiratory Respiratory status: Tachypnea - Mild Chest status: Nontender Breath sounds: Decreased air movement, Rales - Bilateral bases Chest palpation: Normal - Cardiovascular Rhythm: Regular Heart sounds: Normal auscultation Murmur: No - Abdominal Inspection: Normal Distension: No distension Bowel sounds: Normal Tenderness: Nontender Organomegaly: No organomegaly - Back Back: Normal, Nontender - Extremities General upper extremity: Normal inspection, Nontender, Normal color, Normal ROM, Normal temperature General lower extremity: Normal inspection, Nontender, Normal color, Normal ROM, Normal temperature, Normal weight bearing. No: Mj's sign - Neurological Neuro grossly intact: Yes Cognition: Normal Orientation: AAOx4 [place] Coma Scale Eye Opening: Spontaneous [place] Coma Scale Verbal: Oriented Jorge Coma Scale Motor: Obeys Commands Jorge Coma Scale Total: 15 Speech: Normal Motor strength normal: LUE, RUE, LLE, RLE Sensory: Normal - Psychological Associated symptoms: Normal affect, Normal mood - Skin Skin Temperature: Warm Skin Moisture: Dry Skin Color: Normal Course - Re-evaluation Re-evalutation: 05/29/19 19:28 Patient's chest x-ray was read by radiology as showing a infiltrate. Patient had borderline hypoxemia on arrival with the O2 sat approxi-90%. She is 96% on 2 L. Patient has not been taking her Lasix and it appears that she is developing pulmonary edema. It is difficult to say whether or not patient also has an underlying infection. She does not have a significant white count or fever but at this time I have given her initial dose of antibiotics until her respiratory status can be further sorted out. I did discuss diuretic with the admitting hospitalist who states he prefers to manage her diuretics. Therefore dosage of the diuretic was deferred to Dr. Alex. - Vital Signs Vital signs: Temp Pulse Resp BP Pulse Ox 97.9 F 70 20 122/95 H 98 05/29/19 16:00 05/29/19 16:00 05/29/19 16:00 05/29/19 16:00 05/29/19 16:00 - Laboratory Result Diagrams: 05/29/19 16:44 05/29/19 16:44 Laboratory results interpreted by me: 05/29/19 05/29/19 05/29/19 16:44 16:44 16:44 RDW 14.1 H Sodium 136.5 L AST 50 H NT-Pro-B Natriuret Pep 65606 H Total Protein 5.9 L Albumin 2.9 L - Diagnostic Test Radiology reviewed: Image reviewed, Reports reviewed Discharge - Discharge Clinical Impression: Pulmonary edema Qualifiers: Chronicity: acute Qualified Code(s): J81.0 - Acute pulmonary edema Pneumonia Qualifiers: Pneumonia type: due to unspecified organism Laterality: left Lung location: lower lobe of lung Qualified Code(s): J18.9 - Pneumonia, unspecified organism Condition: Fair Disposition: ADMITTED INPATIENT Admitting Provider: Abi (Hospitalist) Unit Admitted: Telemetry Referrals: WENDY DAVILA MD [Primary Care Provider] - Follow up as needed
[2019-05-29] MEDS ORDERED: DEXTROSE 40% GEL 15 GM TUBE PO PRN ×2 (21:16)
[2019-05-29] MEDS ORDERED: MAG HYDROX/AL HYDROX/SIMETH SUSP 30 ML UDCUP PO PRN (21:16)
[2019-05-29] MEDS ORDERED: MAGNESIUM HYDROXIDE SUSP 30 ML UDCUP PO PRN (21:16)
[2019-05-29] MEDS ORDERED: GLUCAGON,HUMAN RECOMB 1 MG INJ IM PRN (21:16)
[2019-05-29] MEDS ORDERED: DEXTROSE 50%-WATER 25 GM/50 ML DISP.SYRIN IV PRN ×2 (21:16)
[2019-05-29] MEDS ORDERED: ACETAMINOPHEN 325 MG TABLET PO PRN (21:16)
[2019-05-29] MEDS ORDERED: PROMETHAZINE HCL INJ 25 MG/1 ML VIAL IV PRN (21:16)
[2019-05-29] MEDS ORDERED: LEVALBUTEROL HCL NEB 0.63 MG/3 ML AMPUL NEB PRN (21:16)
[2019-05-29] MEDS ORDERED: PROMETHAZINE HCL INJ 25 MG/1 ML VIAL IV ONE (21:18)
[2019-05-29] MEDS ORDERED: GUAIFENESIN SYRP 200 MG/10 ML UDC PO PRN (21:23)
[2019-05-29] MEDS: ATORVASTATIN CALCIUM 20 MG TABLET PO SCH (22:24)
[2019-05-29] MEDS: HEPARIN SOD (PORCINE) 5,000 UNIT/ML 1 ML VIAL SUBCUT SCH (22:24)
[2019-05-29] MEDS: MONTELUKAST SODIUM 10 MG TABLET PO SCH (22:24)
[2019-05-29] MEDS: MORPHINE SULFATE 10 MG/ML INJ IV PRN (22:25)
[2019-05-30 00:20] LABS: CREATINE KINASE MB 4.87 ng/mL (<4.55)
[2019-05-30] MEDS: FUROSEMIDE INJ/PF 40 MG/4 ML SDV IV SCH ×3 (00:21→14:12)
[2019-05-30 00:28] LABS: TROPONIN I 0.057 ng/mL
[2019-05-30] MEDS: SACUBITRIL/VALSARTAN 24 MG/26 MG TABLET PO SCH ×3 (00:37→22:08)
[2019-05-30] MEDS: NITROGLYCERIN 2% OINTMENT 1 GM PACKET TP SCH ×4 (00:42→17:38)
--- NOTE | 2019-05-30 01:56 | PDOC H&P ---
History of Present Illness Admission Date/PCP: 05/29/2019 19:28 WENDY DAVILA MD Patient complains of: Dyspnea History of Present Illness: RADHA LAGUERRE is a 74 year old female who presented emergency room with a 2-day history of dyspnea. Patient admits gradually worsening dyspnea over the last 2 days, worsened by exertion, accompanied by a nonproductive cough and associated with orthopnea and swelling in her legs. Her dyspnea has been constant and has become severe today. She denies other associated or accompanying signs and symptoms. She admits having discontinued her Lasix for the last 2 days because it causes frequent nocturnal urination. She admits prior similar symptoms on n umerous occasions related to her CHF and COPD. She has not identified any additional aggravating or ameliorating factors for her dyspnea. In the emergency room she was found to have acute hypoxic respiratory failure requiring supplemental oxygen to maintain adequate oxygen saturation greater than 90%. Additionally she was noted to have an elevated BNP at 16,500 and a chest x-ray which showed bilateral pleural effusions with a large right pleural effusion and a questionable multifocal pneumonia in the bases. She was subsequently admitted to the hospital for further evaluation and treatment after IV antibiotics were initiated in the emergency room. Past Medical History Cardiac Medical History: Reports: Atrial Fibrillation, Congestive Heart Failure - Systolic, Hyperlipidema, Hypertension, Heart Murmur Denies: Coronary Artery Disease, Myocardial Infarction Pulmonary Medical History: Reports: Bronchitis, Chronic Obstructive Pulmonary Disease (COPD), Pneumonia, Sleep Apnea Denies: Asthma EENT Medical History: Denies: Cataracts, Ears - Hearing aids Neurological Medical History: Denies: Hemorrhagic CVA, Ischemic CVA, Seizures Endocrine Medical History: Reports: Diabetes Mellitus Type 2, Hypothyroidism, Obesity Denies: Diabetes Mellitus Type 1, Hyperthyroidism Renal/ Medical History: Denies: Chronic Kidney Disease, Nephrolithiasis Malignancy Medical History: Reports: Lymphoma GI Medical History: Reports: Gastroesophageal Reflux Disease Denies: Cirrhosis, Crohn's Disease, Hepatitis, Peptic Ulcer Disease, Ulcerative Colitis Musculoskeltal Medical History: Denies: Arthritis, Fibromyalgia, Gout Skin Medical History: Denies: Eczema, Psoriasis Psychiatric Medical History: Reports: Depression Denies: Alcohol Dependency, Substance Abuse, Tobacco Dependency Traumatic Medical History: Reports: None Hematology: Denies: Anemia, Bleeding Tendencies Infectious Medical History: Reports: None Past Surgical History Past Surgical History: Reports: Cholecystectomy, Gastric Bypass Surgery, Tonsillectomy, Other - panniiculectomy Social History Information Source: Patient Lives with: Family Smoking Status: Never Smoker Electronic Cigarette use?: No Frequency of Alcohol Use: None Hx Recreational Drug Use: No Drugs: None Hx Prescription Drug Abuse: No - Advance Directive Resuscitation Status: Full Code Surrogate healthcare decision maker:: Savi Mcmillan Family History Family History: COPD. denies: CAD, DM, Hypertension, Malignancy Parental Family History Reviewed: Yes Children Family History Reviewed: No Sibling(s) Family History Reviewed.: Yes Medication/Allergy Home Medications: Buspirone HCl [Buspar 15 mg Tablet] 15 mg PO Q12 07/21/18 Escitalopram Oxalate [Lexapro] 20 mg PO DAILY 07/21/18 Levothyroxine Sodium [Synthroid 0.1 mg Tablet] 0.125 mg PO Q6AM 07/21/18 Pantoprazole Sodium [Protonix [address] Tablet] 40 mg PO QAM 07/21/18 Aspirin [Ecotrin 81 mg EC Tablet] 81 mg PO DAILY 05/29/19 Atorvastatin Calcium [Lipitor 20 mg Tablet] 20 mg PO QHS 05/29/19 Digoxin 125 mcg PO DAILY 05/29/19 Multivitamin [Tab-A-Ren (Multiple Vitamin) Tablet] 1 tab PO DAILY 05/29/19 Sacubitril/Valsartan [Entresto 24 mg/26 mg Tablet] 1 tbs PO Q12 05/29/19 Allergies/Adverse Reactions: codeine [Codeine] Allergy (Verified 05/29/19 18:32) Sulfa (Sulfonamide Antibiotics) Allergy (Verified 05/29/19 18:32) rash; itching haloperidol [From Haldol] Adverse Reaction (Verified 05/29/19 18:32) zolpidem tartrate [From Ambien] Adverse Reaction (Verified 05/29/19 18:32) sleep walk Review of Systems Constitutional: ABSENT: chills, fever(s) Eyes: ABSENT: visual disturbances, other - Eye pain Ears: ABSENT: hearing changes, other - Ear pain Nose, Mouth, and Throat: ABSENT: mouth pain, sore throat Cardiovascular: PRESENT: as per HPI, dyspnea on exertion, edema, orthropnea. ABSENT: chest pain, palpitations Respiratory: PRESENT: as per HPI, cough, dyspnea. ABSENT: hemoptysis, sputum Gastrointestinal: ABSENT: abdominal pain, constipation, diarrhea, nausea, vomiting Genitourinary: ABSENT: difficulty urinating, dysuria, hematuria Musculoskeletal: ABSENT: back pain, joint swelling, muscle weakness Integumentary: ABSENT: pruritus, rash Neurological: ABSENT: confusion, convulsions, focal weakness, memory loss, syncope Psychiatric: ABSENT: anxiety, depression Endocrine: ABSENT: cold intolerance, heat intolerance, polydipsia, polyphagia, polyuria Hematologic/Lymphatic: ABSENT: easy bleeding, easy bruising Allergic/Immunologic: ABSENT: seasonal rhinorrhea Physical Exam Vital Signs: Temp Pulse Resp BP Pulse Ox 97.8 F 70 22 H 138/80 H 97 05/29/19 19:01 05/29/19 16:00 05/29/19 19:01 05/29/19 19:01 05/29/19 19:01 Intake & Output 05/27/19 05/28/19 05/29/19 23:59 23:59 23:59 Intake Total 50 Balance 50 Weight 66.678 kg General appearance: PRESENT: cooperative, mild distress - Mild respiratory distress Head exam: PRESENT: atraumatic, normocephalic Eye exam: PRESENT: conjunctiva pink. ABSENT: conjunctival injection, scleral icterus Ear exam: PRESENT: normal external ear exam. ABSENT: bleeding, drainage Mouth exam: PRESENT: dry mucosa, neck supple Neck exam: PRESENT: JVD - Bilateral at 30 degrees elevation. ABSENT: thyromegaly, tracheal deviation Respiratory exam: PRESENT: decreased breath sounds - Decreased breath sounds at the right base, prolonged expiratory phas - Minimally prolonged expiratory p hase, rales - Fine rales in the lower one half of both lung reilly, symmetrical, tachypnea, wheezes - Minimal expiratory wheezing. ABSENT: rhonchi Cardiovascular exam: PRESENT: gallop - S4 gallop rhythm, RRR. ABSENT: clicks, rubs Pulses: PRESENT: normal carotid pulses, normal radial pulses Vascular exam: PRESENT: normal capillary refill. ABSENT: pallor GI/Abdominal exam: PRESENT: normal bowel sounds, soft Rectal exam: PRESENT: deferred Extremities exam: PRESENT: pedal edema - Bilateral, +2 edema - 2+ pitting edema of the bilateral lower extremities to the knees. ABSENT: joint swelling Musculoskeletal exam: ABSENT: deformity, dislocation Neurological exam: PRESENT: alert, oriented to person, oriented to place, oriented to time, oriented to situation, CN II-XII grossly intact. ABSENT: m otor sensory deficit Psychiatric exam: PRESENT: appropriate affect, normal mood Skin exam: PRESENT: dry, intact, warm. ABSENT: jaundice, rash, urticaria Results Laboratory Results: 05/29/19 16:44 05/29/19 16:44 05/29/19 05/29/19 16:44 16:44 WBC 8.0 RBC 4.04 Hgb 12.7 Hct 37.7 MCV 93 MCH 31.3 MCHC 33.6 RDW 14.1 H Plt Count 165 Seg Neutrophils % 69.9 Sodium 136.5 L Potassium 4.7 Chloride 103 Carbon Dioxide 28 Anion Gap 6 BUN 12 Creatinine 0.55 Est GFR ( Amer) > 60 Glucose 80 Calcium 8.8 Total Bilirubin 0.8 AST 50 H Alkaline Phosphatase 100 Total Protein 5.9 L Albumin 2.9 L 05/29/19 16:44 Troponin I 0.062 NT-Pro-B Natriuret Pep 64209 H Impressions: Chest X-Ray 05/29/19 15:52 IMPRESSION: Moderate right pleural effusion and small left effusion. Left lower lobe infiltrate consistent with pneumonia. Probable underlying atelectasis pneumonia in the right base as well. Assessment and Plan - Diagnosis (1) Acute on chronic systolic congestive heart failure Is this a current diagnosis for this admission?: Yes (2) Acute on chronic respiratory failure with hypoxemia Is this a current diagnosis for this admission?: Yes (3) Obstructive sleep apnea Is this a current diagnosis for this admission?: Yes (4) Diabetes mellitus type 2 in nonobese Is this a current diagnosis for this admission?: Yes (5) Hypertension Qualifiers: Hypertension type: essential hypertension Qualified Code(s): I10 - Essential (primary) hypertension Is this a current diagnosis for this admission?: Yes (6) Hypothyroidism Qualifiers: Hypothyroidism type: unspecified Qualified Code(s): E03.9 - Hypothyroidism, unspecified Is this a current diagnosis for this admission?: Yes (7) Chronic obstructive pulmonary disease Qualifiers: COPD type: unspecified COPD Qualified Code(s): J44.9 - Chronic obstructive pulmonary disease, unspecified Is this a current diagnosis for this admission?: Yes - Plan Summary Summary: Patient is admitted to the medical floor where she will receive routine support david and symptomatic cares. She will be treated with IV Lasix 40 mg every 6 hours, morphine sulfate 2 mg IV every hour as needed for severe dyspnea, nitroglycerin ointment 0.5 g every 6 hours and supplemental oxygen via nasal cannula with consideration for use of noninvasive airway pressure support devices such as CPAP or BiPAP in order to maintain an adequate oxygen saturation. She will be continued on antibiotic therapy as it was initiated in the emergency room with oral Zithromax and intravenous ceftriaxone 1 g daily. Before meals and at bedtime Accu-Cheks will be performed with sliding scale insulin provided for hyperglycemia and a hypoglycemic protocol in place. Hemoglobin A1c will be obtained. CBCs, metabolic profiles and magnesium levels as well as proBNP determinations will be obtained as appropriate. Patient will be continued on her usual home medications with appropriate adjustments for her chronic medical conditions pending verification of her medical reconciliation list. She will receive Ativan 1 mg IV every 4 hours as needed for anxiety or restlessness. A lipid profile and a TSH will also be obtained. Patient will be on a routine pulmonary toilet utilizing nebulized Xopenex as needed, with continuation of her usual inhalers and pulmonary medications as available. - Time Time Spent with patient: 25-34 minutes Medications reviewed and adjusted accordingly: Yes Anticipated discharge: Home - Inpatient Certification Based on my medical assessment, after consideration of the patient's comorbidities, presenting symptoms, or acuity I expect that the services needed warrant INPATIENT care.: Yes I certify that my determination is in accordance with my understanding of Medicare's requirements for reasonable and necessary INPATIENT services [42 CFR 412.3e].: Yes Medical Necessity: Significant Comorbidiites Make Outpatient Treatment Too Risky, Need Close Monitoring Due to Risk of Patient Decompensation, Need for Nebulizer Therapy and Monitoring of Response, Risk of Complication if Not Cared For in Hospital
[2019-05-30] MEDS: MORPHINE SULFATE 10 MG/ML INJ IV PRN (02:09)
[2019-05-30] MEDS ORDERED: INFLUENZA QUAD (6MOS+) 2019-20 VAC 0.5 ML SYR IM ONE (03:14)
[2019-05-30 05:35] LABS: ABSOLUTE EOSINOPHILS # (AUTO) 0.1 10^3/uL (0.0-0.6); HEMATOCRIT 37.9 % (36.0-47.0); TOTAL CELLS COUNTED % (AUTO) 100 %
[2019-05-30 05:42] LABS: ABSOLUTE BASOPHILS # (AUTO) 0.1 10^3/uL (0.0-0.2); ABSOLUTE LYMPHOCYTES (AUTO) 1.6 10^3/uL (0.5-4.7); ABSOLUTE MONOCYTES (AUTO) 0.7 10^3/uL (0.1-1.4); ABSOLUTE NEUT (AUTO) 3.5 10^3/uL (1.7-8.2); BASOPHILS % (AUTO) 1.2 % (0-2); EOSINOPHILS % (AUTO) 1.8 % (0-6); HEMOGLOBIN 12.7 g/dL (12.0-15.5); LYMPHOCYTES % (AUTO) 26.6 % (13-45); MEAN CORPUSCULAR HEMOGLOBIN 31.2 pg (27.0-33.4); MEAN CORPUSCULAR HGB CONC 33.4 g/dL (32.0-36.0); MEAN CORPUSCULAR VOLUME 93 fl (80-97); MONOCYTES % (AUTO) 11.1 % (3-13); PLATELET COUNT 156 10^3/uL (150-450); RED BLOOD COUNT 4.06 10^6/uL (3.72-5.28); SEGMENTED NEUTROPHILS % (AUTO) 59.3 % (42-78); WHITE BLOOD COUNT 5.9 10^3/uL (4.0-10.5)
[2019-05-30 05:58] LABS: ANION GAP 6 (5-19); BLOOD UREA NITROGEN 12 mg/dL (7-20); CALCIUM 8.7 mg/dL (8.4-10.2); CARBON DIOXIDE 30 mmol/L (22-30); CHLORIDE 103 mmol/L (98-107); CHOLESTEROL 104.83 mg/dL (0-200); DIGOXIN 1.18 ng/mL (0.8-2.0); GLUCOSE 97 mg/dL (75-110); POTASSIUM 4.2 mmol/L (3.6-5.0); TRIGLYCERIDES 68 mg/dL (<150)
[2019-05-30] MEDS ORDERED: PANTOPRAZOLE SODIUM 40 MG TABLET.DR PO SCH (06:00)
[2019-05-30 06:07] LABS: DIRECT LDL 42 mg/dL (<100)
[2019-05-30 06:13] LABS: CREATINE KINASE MB 3.36 ng/mL (<4.55); TROPONIN I 0.048 ng/mL
[2019-05-30] MEDS: HEPARIN SOD (PORCINE) 5,000 UNIT/ML 1 ML VIAL SUBCUT SCH ×3 (06:31→22:09)
[2019-05-30] MEDS: PANTOPRAZOLE SODIUM 40 MG TABLET.DR PO SCH (06:32)
[2019-05-30] MEDS: LEVOTHYROXINE SODIUM 0.1 MG TABLET PO SCH (06:32)
[2019-05-30] MEDS: INSULIN REG, HUMAN 100 UNIT/ML 3 ML VIAL (PYX) SUBCUT SCH ×2 (09:40→14:08)
[2019-05-30] MEDS: DIGOXIN 0.125 MG TABLET PO SCH (09:43)
[2019-05-30] MEDS: DOCUSATE SODIUM 100 MG CAPSULE PO SCH (09:44)
[2019-05-30] MEDS: BUSPIRONE HCL 10 MG TABLET PO SCH ×2 (09:45→17:43)
[2019-05-30] MEDS: ESCITALOPRAM OXALATE 10 MG TABLET PO SCH (09:45)
[2019-05-30] MEDS: FLUTICASONE/VILANTEROL 100-25 MCG/DOSE IH SCH (09:46)
[2019-05-30] MEDS: MULTIVITAMIN TABLET PO SCH (09:46)
[2019-05-30] MEDS: ASPIRIN 81 MG TABLET, ENT COATED PO SCH (09:46)
--- NOTE | 2019-05-30 09:46 | EKG REPORT ---
SEVERITY:- ABNORMAL ECG - SINUS RHYTHM FIRST DEGREE AV BLOCK IVCD, CONSIDER ATYPICAL LBBB : Confirmed by: Junior Werner 30-May-2019 09:45:29
--- NOTE | 2019-05-30 14:27 | PDOC PROGRESS REPORT ---
Subjective Progress Note for:: 05/30/19 Subjective:: RADHA LAGUERRE is a 74 year old female who presented emergency room with a 2-day history of dyspnea. Patient admits gradually worsening dyspnea over the last 2 days, worsened by exertion, accompanied by a nonproductive cough and associated with orthopnea and swelling in her legs. Her dyspnea has been constant and has become severe today. She denies other associated or accompanying signs and symptoms. She admits having discontinued her Lasix for the last 2 days because it causes frequent nocturnal urination. She admits prior similar symptoms on numerous occasions related to her CHF and COPD. She has not identified any additional aggravating or ameliorating factors for her dyspnea. In the emergency room she was found to have acute hypoxic respiratory failure requiring supplemental oxygen to maintain adequate oxygen saturation greater than 90%. Additionally she was noted to have an elevated BNP at 16,500 and a chest x-ray which showed bilateral pleural effusions with a large right pleural effusion and a questionable multifocal pneumonia in the bases. She was subsequently admitted to the hospital for further evaluation and treatment after IV antibiotics were initiated in the emergency room. 05/30/2019. No acute events overnight. Patient comfortably resting in bed no apparent distress stating that she is feeling much better than yesterday, denies any fever, chills, nausea, vomiting, diarrhea, constipation or urinary symptoms. Patient would like to be transitioned back to home, stating that she has good support at home and does not need any home health or nursing. Reason For Visit: ACUTE RESPIRATORY FAILURE WITH HYPOXIA,ACUTE ON Physical Exam Vital Signs: Temp Pulse Resp BP Pulse Ox 97.6 F 69 16 72/47 L 95 05/30/19 11:39 05/30/19 11:39 05/30/19 11:39 05/30/19 11:39 05/30/19 11:39 Intake & Output 05/29/19 05/30/19 05/31/19 06:59 06:59 06:59 Intake Total 50 Output Total 1750 Balance -1700 Weight 61.2 kg 61.2 kg General appearance: PRESENT: no acute distress, well-developed, well-nourished Head exam: PRESENT: atraumatic, normocephalic Respiratory exam: PRESENT: clear to auscultation glory. ABSENT: rales, rhonchi, wheezes Cardiovascular exam: PRESENT: RRR, systolic murmur. ABSENT: diastolic murmur, rubs GI/Abdominal exam: PRESENT: normal bowel sounds, soft. ABSENT: distended, guarding, mass, organolmegaly, rebound, tenderness Neurological exam: PRESENT: alert, awake, oriented to person, oriented to place, oriented to time, oriented to situation, CN II-XII grossly intact. ABSENT: motor sensory deficit Results Laboratory Results: 05/30/19 05:19 05/30/19 05:19 05/29/19 05/29/19 05/30/19 16:44 16:44 05:19 WBC 8.0 5.9 RBC 4.04 4.06 Hgb 12.7 12.7 Hct 37.7 37.9 MCV 93 93 MCH 31.3 31.2 MCHC 33.6 33.4 RDW 14.1 H 14.0 Plt Count 165 156 Seg Neutrophils % 69.9 59.3 Sodium 136.5 L Potassium 4.7 Chloride 103 Carbon Dioxide 28 Anion Gap 6 BUN 12 Creatinine 0.55 Est GFR ( Amer) > 60 Glucose 80 Calcium 8.8 Magnesium Total Bilirubin 0.8 AST 50 H Alkaline Phosphatase 100 Total Protein 5.9 L Albumin 2.9 L Triglycerides Cholesterol LDL Cholesterol Direct VLDL Cholesterol HDL Cholesterol TSH 05/30/19 05/30/19 05:19 05:19 WBC RBC Hgb Hct MCV MCH MCHC RDW Plt Count Seg Neutrophils % Sodium 139.0 Potassium 4.2 Chloride 103 Carbon Dioxide 30 Anion Gap 6 BUN 12 Creatinine 0.62 Est GFR ( Amer) > 60 Glucose 97 Calcium 8.7 Magnesium 1.9 Total Bilirubin AST Alkaline Phosphatase Total Protein Albumin Triglycerides 68 Cholesterol 104.83 LDL Cholesterol Direct 42 VLDL Cholesterol 14.0 HDL Cholesterol 56 TSH 3.49 05/29/19 05/29/19 05/29/19 16:44 23:27 23:27 Creatine Kinase 91 CK-MB (CK-2) 4.87 H Troponin I 0.062 0.057 NT-Pro-B Natriuret Pep 87132 H 05/30/19 05/30/19 05:19 05:19 Creatine Kinase 71 CK-MB (CK-2) 3.36 Troponin I 0.048 NT-Pro-B Natriuret Pep Impressions: Chest X-Ray 05/29/19 15:52 IMPRESSION: Moderate right pleural effusion and small left effusion. Left l ower lobe infiltrate consistent with pneumonia. Probable underlying atelectasis pneumonia in the right base as well. Assessment and Plan - Diagnosis (1) Acute respiratory failure with hypoxia Is this a current diagnosis for this admission?: Yes Plan: Multifactorial, likely due to acute CHF exacerbation, committee acquired pneumonia complicated by history of CHF and COPD. Supplemental oxygen, duo nebs, LABA, LABA, empiric IV antibiotics, BiPAP (2) Pneumonia Qualifiers: Pneumonia type: due to unspecified organism Laterality: right Lung location: lower lobe of lung Qualified Code(s): J18.9 - Pneumonia, unspecified organism Is this a current diagnosis for this admission?: Yes Plan: Afebrile, no leukocytosis however chest x-ray positive for right lower lobe infiltrate given history of multiple comorbidities will treat with empiric IV antibiotics. Day 2 IV antibiotics. Day 2 IV ceftriaxone. Day 2 IV azithromycin. Continue empiric IV antibiotics. Follow-up cultures. (3) Acute on chronic systolic congestive heart failure Is this a current diagnosis for this admission?: Yes Plan: Likely due to underlying pneumonia and medical noncompliance. Patient stated that she has not been taking her Lasix recently to avoid waking up. Presented with orthopnea, paroxysmal nocturnal dyspnea. proBNP 16,500, baseline 8-10,000. 2D echo 10/27/2018 LVEF 55%. Cardiac diet, fluid restriction, Entresto, digoxin, IV Lasix. (4) Hypertension Qualifiers: Hypertension type: essential hypertension Qualified Code(s): I10 - Essential (primary) hypertension Is this a current diagnosis for this admission?: Yes (5) Hypothyroidism Qualifiers: Hypothyroidism type: unspecified Qualified Code(s): E03.9 - Hypothyroidism, unspecified Is this a current diagnosis for this admission?: Yes Plan: TSH WNL. Restart home meds. (6) Obstructive sleep apnea Is this a current diagnosis for this admission?: Yes (7) Pleural effusion Is this a current diagnosis for this admission?: Yes Plan: Persistent pleural effusion most likely due to underlying CHF. Plan as per above. (8) Diabetes mellitus type 2 in nonobese Is this a current diagnosis for this admission?: Yes Plan: Ruled out. Hemoglobin A1c 4.6- 5.1%. As per patient she does not have diabetes and is not on antidiabetic meds and wants her Accu-Chek to be DC'd. Outpatient PCP follow-up.
[2019-05-30] MEDS: CEFTRIAXONE 1 GM/D5W RTU 1 GM/50 ML RTUPB IV SCH (17:43)
[2019-05-30] MEDS ORDERED: AZITHROMYCIN 250 MG TABLET PO SCH (18:00)
[2019-05-30] MEDS ORDERED: FUROSEMIDE 20 MG TABLET PO SCH (18:00)
[2019-05-30] MEDS: ATORVASTATIN CALCIUM 20 MG TABLET PO SCH (22:08)
[2019-05-30] MEDS: MONTELUKAST SODIUM 10 MG TABLET PO SCH (22:08)
[2019-05-30] MEDS: MELATONIN 5 MG TABLET PO PRN (22:08)
[2019-05-30] MEDS: LORAZEPAM INJ 2 MG/1 ML VIAL IV PRN (22:38)
[2019-05-31] MEDS: NITROGLYCERIN 2% OINTMENT 1 GM PACKET TP SCH ×4 (00:43→17:51)
[2019-05-31 03:23] LABS: ABSOLUTE BASOPHILS # (AUTO) 0.1 10^3/uL (0.0-0.2); ABSOLUTE EOSINOPHILS # (AUTO) 0.2 10^3/uL (0.0-0.6); ABSOLUTE LYMPHOCYTES (AUTO) 2.1 10^3/uL (0.5-4.7); ABSOLUTE MONOCYTES (AUTO) 0.7 10^3/uL (0.1-1.4); ABSOLUTE NEUT (AUTO) 2.8 10^3/uL (1.7-8.2); BASOPHILS % (AUTO) 0.9 % (0-2); EOSINOPHILS % (AUTO) 3.8 % (0-6); HEMATOCRIT 36.2 % (36.0-47.0); HEMOGLOBIN 12.1 g/dL (12.0-15.5); LYMPHOCYTES % (AUTO) 35.5 % (13-45); MEAN CORPUSCULAR HEMOGLOBIN 30.8 pg (27.0-33.4); MEAN CORPUSCULAR HGB CONC 33.3 g/dL (32.0-36.0); MEAN CORPUSCULAR VOLUME 92 fl (80-97); MONOCYTES % (AUTO) 12.2 % (3-13); PLATELET COUNT 165 10^3/uL (150-450); RED BLOOD COUNT 3.91 10^6/uL (3.72-5.28); RED CELL DISTRIBUTION WIDTH 13.7 % (11.5-14.0); SEGMENTED NEUTROPHILS % (AUTO) 47.6 % (42-78); TOTAL CELLS COUNTED % (AUTO) 100 %; WHITE BLOOD COUNT 5.8 10^3/uL (4.0-10.5)
[2019-05-31 03:35] LABS: BLOOD UREA NITROGEN 11 mg/dL (7-20); GLUCOSE 87 mg/dL (75-110); POTASSIUM 3.9 mmol/L (3.6-5.0)
[2019-05-31 03:41] LABS: CARBON DIOXIDE 33 mmol/L (22-30); CHLORIDE 101 mmol/L (98-107)
[2019-05-31 03:42] LABS: ANION GAP 4 (5-19)
[2019-05-31] MEDS ORDERED: VANCOMYCIN HCL INJ 500 MG VIAL ONE (04:57)
[2019-05-31] MEDS ORDERED: VANCOMYCIN HCL INJ 1000 MG VIAL ONE (04:57)
[2019-05-31] MEDS ORDERED: VANCOMYCIN HCL INJ 1000 MG VIAL IV PRN (05:34)
[2019-05-31] MEDS ORDERED: PHARMACY COMMUNICATION ORDER MC PRN (05:35)
[2019-05-31] MEDS: PANTOPRAZOLE SODIUM 40 MG TABLET.DR PO SCH (05:36)
[2019-05-31] MEDS: LEVOTHYROXINE SODIUM 0.1 MG TABLET PO SCH (05:36)
[2019-05-31] MEDS: HEPARIN SOD (PORCINE) 5,000 UNIT/ML 1 ML VIAL SUBCUT SCH ×3 (05:36→21:47)
[2019-05-31] MEDS ORDERED: VANCOMYCIN HCL 1,250 MG in DEXTROSE 5%-WATER 250 ML IV ONE (05:45)
[2019-05-31] MEDS: FUROSEMIDE 20 MG TABLET PO SCH (09:46)
[2019-05-31] MEDS: ESCITALOPRAM OXALATE 10 MG TABLET PO SCH (09:51)
[2019-05-31] MEDS: DOCUSATE SODIUM 100 MG CAPSULE PO SCH (09:51)
[2019-05-31] MEDS: FLUTICASONE/VILANTEROL 100-25 MCG/DOSE IH SCH (09:51)
[2019-05-31] MEDS: BUSPIRONE HCL 10 MG TABLET PO SCH ×2 (09:51→17:57)
[2019-05-31] MEDS: ASPIRIN 81 MG TABLET, ENT COATED PO SCH (09:51)
[2019-05-31] MEDS: DIGOXIN 0.125 MG TABLET PO SCH (09:51)
[2019-05-31] MEDS: MULTIVITAMIN TABLET PO SCH (09:51)
[2019-05-31] MEDS: SACUBITRIL/VALSARTAN 24 MG/26 MG TABLET PO SCH ×2 (09:51→21:47)
--- NOTE | 2019-05-31 15:12 | PDOC PROGRESS REPORT ---
Subjective Progress Note for:: 05/31/19 Subjective:: RADHA LAGUERRE is a 74 year old female who presented emergency room with a 2-day history of dyspnea. Patient admits gradually worsening dyspnea over the last 2 days, worsened by exertion, accompanied by a nonproductive cough and associated with orthopnea and swelling in her legs. Her dyspnea has been constant and has become severe today. She denies other associated or accompanying signs and symptoms. She admits having discontinued her Lasix for the last 2 days because it causes frequent nocturnal urination. She admits prior similar symptoms on numerous occasions related to her CHF and COPD. She has not identified any additional aggravating or ameliorating factors for her dyspnea. In the emergency room she was found to have acute hypoxic respiratory failure requiring supplemental oxygen to maintain adequate oxygen saturation greater than 90%. Additionally she was noted to have an elevated BNP at 16,500 and a chest x-ray which showed bilateral pleural effusions with a large right pleural effusion and a questionable multifocal pneumonia in the bases. She was subsequently admitted to the hospital for further evaluation and treatment after IV antibiotics were initiated in the emergency room. 05/30/2019. No acute events overnight. Patient comfortably resting in bed no apparent distress stating that she is feeling much better than yesterday, denies any fever, chills, nausea, vomiting, diarrhea, constipation or urinary symptoms. Patient would like to be transitioned back to home, stating that she has good support at home and does not need any home health or nursing. 05/31/2019. No acute events overnight. Patient reporting significant im provement of her symptoms, has any fever, chills, nausea, vomiting, diarrhea, constipation or any urinary symptoms. Could potentially be discharged home however patient has 1+ blood culture pending sensitivity. Reason For Visit: ACUTE RESPIRATORY FAILURE WITH HYPOXIA,ACUTE ON Physical Exam Vital Signs: Temp Pulse Resp BP Pulse Ox 97.2 F 74 18 83/53 L 100 05/31/19 13:38 05/31/19 13:38 05/31/19 13:38 05/31/19 13:38 05/31/19 13:38 Intake & Output 05/30/19 05/31/19 06/01/19 06:59 06:59 06:59 Intake Total 50 472 490 Output Total 9401 9575 400 90 Weight 61.2 kg 59.4 kg Results Laboratory Results: 05/31/19 03:05 05/31/19 03:05 05/31/19 05/31/19 05/31/19 03:05 03:05 03:05 WBC 5.8 RBC 3.91 Hgb 12.1 Hct 36.2 MCV 92 MCH 30.8 MCHC 33.3 RDW 13.7 Plt Count 165 Seg Neutrophils % 47.6 Sodium Cancelled 138.1 Potassium Cancelled 3.9 Chloride Cancelled 101 Carbon Dioxide Cancelled 33 H Anion Gap Cancelled 4 L BUN Cancelled 11 Creatinine Cancelled 0.74 Est GFR ( Amer) Cancelled > 60 Est GFR (Non-Af Amer) Cancelled Glucose Cancelled 87 Calcium Cancelled 8.0 L Magnesium 1.7 05/29/19 18:00 Blood Blood Culture (PCR) - Final Staphylococcus Species 05/29/19 05/29/19 05/29/19 16:44 23:27 23:27 Creatine Kinase 91 CK-MB (CK-2) 4.87 H Troponin I 0.062 0.057 NT-Pro-B Natriuret Pep [id number] H 05/30/19 05/30/19 05:19 05:19 Creatine Kinase 71 CK-MB (CK-2) 3.36 Troponin I 0.048 NT-Pro-B Natriuret Pep Impressions: Chest X-Ray 05/29/19 15:52 IMPRESSION: Moderate right pleural effusion and small left effusion. Left lower lobe infiltrate consistent with pneumonia. Probable underlying atelectasis pneumonia in the right base as well. Assessment and Plan - Diagnosis (1) Acute respiratory failure with hypoxia Is this a current diagnosis for this admission?: Yes Plan: Improving. Back to baseline. SPO2 WNL on 1.5 L. Multifactorial, likely due to acute CHF exacerbation, community acquired pneumonia complicated by history of CHF and COPD. Supplemental oxygen, duo nebs, LABA, LABA, empiric IV antibiotics, BiPAP (2) Pneumonia Qualifiers: Pneumonia type: due to unspecified organism Laterality: right Lung location: lower lobe of lung Qualified Code(s): J18.9 - Pneumonia, unspecified organism Is this a current diagnosis for this admission?: Yes Plan: Afebrile, no leukocytosis however chest x-ray positive for right lower lobe infiltrate given history of multiple comorbidities will treat with empiric IV antibiotics. Day 3 IV antibiotics. Day 3 IV ceftriaxone. Day 3 IV azithromycin. Continue empiric IV antibiotics. Follow-up cultures. (3) Acute on chronic systolic congestive heart failure Is this a current diagnosis for this admission?: Yes Plan: Improving. Euvolemic. No JVD. Likely due to underlying pneumonia and medical noncompliance. Patient stated that she has not been taking her Lasix recently to avoid waking up. Presented with orthopnea, paroxysmal nocturnal dyspnea. proBNP 16,500, baseline 8-10,000. 2D echo 10/27/2018 LVEF 55%. Cardiac diet, fluid restriction, Entresto, digoxin, IV Lasix. (4) Hypertension Qualifiers: Hypertension type: essential hypertension Qualified Code(s): I10 - Essential (primary) hypertension Is this a current diagnosis for this admission?: Yes Plan: Home meds are Entresto, Lasix, digoxin. Marginal BPs. Patient is stating that her BP runs in low 90s at home. Continue Entresto, continue digoxin, continue Lasix 20 mg p.o. every 48 hours. Monitor vitals. Adjust meds as needed. Outpatient PCP follow-up. (5) Hypothyroidism Qualifiers: Hypothyroidism type: unspecified Qualified Code(s): E03.9 - Hypothyroidism, unspecified Is this a current diagnosis for this admission?: Yes Plan: TSH WNL. Restart home meds. (6) Obstructive sleep apnea Is this a current diagnosis for this admission?: Yes Plan: Continue nocturnal BiPAP. (7) Pleural effusion Is this a current diagnosis for this admission?: Yes Plan: Persistent pleural effusion most likely due to underlying CHF. Plan as per above. (8) Diabetes mellitus type 2 in nonobese Is this a current diagnosis for this admission?: Yes Plan: Ruled out. Hemoglobin A1c 4.6- 5.1%. As per patient she does not have diabetes and is not on antidiabetic meds and wants her Accu-Chek to be DC'd. Outpatient PCP follow-up. (9) Gram-positive bacteremia Is this a current diagnosis for this admission?: Yes Plan: Blood cultures 1 out of 4 bottles growing gram-positive cocci in clusters, coag negative ending sensitivity. This is most likely contamination. Continue empiric IV antibiotics. Repeat blood culture. Follow-up C&S.
[2019-05-31] MEDS: CEFTRIAXONE 1 GM/D5W RTU 1 GM/50 ML RTUPB IV SCH (17:57)
[2019-05-31] MEDS: LORAZEPAM INJ 2 MG/1 ML VIAL IV PRN (20:44)
[2019-05-31] MEDS: MONTELUKAST SODIUM 10 MG TABLET PO SCH (21:46)
[2019-05-31] MEDS: ATORVASTATIN CALCIUM 20 MG TABLET PO SCH (21:47)
[2019-05-31] MEDS: MELATONIN 5 MG TABLET PO PRN (21:47)
[2019-06-01] MEDS: NITROGLYCERIN 2% OINTMENT 1 GM PACKET TP SCH ×5 (00:50→23:17)
[2019-06-01] MEDS: HEPARIN SOD (PORCINE) 5,000 UNIT/ML 1 ML VIAL SUBCUT SCH ×3 (06:05→22:39)
[2019-06-01] MEDS: LEVOTHYROXINE SODIUM 0.1 MG TABLET PO SCH (06:05)
[2019-06-01] MEDS: VANCOMYCIN HCL 1,250 MG in DEXTROSE 5%-WATER 250 ML IV SCH (06:05)
[2019-06-01] MEDS: PANTOPRAZOLE SODIUM 40 MG TABLET.DR PO SCH (06:05)
[2019-06-01] MEDS: ASPIRIN 81 MG TABLET, ENT COATED PO SCH (10:14)
[2019-06-01] MEDS: ESCITALOPRAM OXALATE 10 MG TABLET PO SCH (10:14)
[2019-06-01] MEDS: DOCUSATE SODIUM 100 MG CAPSULE PO SCH (10:14)
[2019-06-01] MEDS: BUSPIRONE HCL 10 MG TABLET PO SCH ×2 (10:14→17:51)
[2019-06-01] MEDS: FLUTICASONE/VILANTEROL 100-25 MCG/DOSE IH SCH (10:14)
[2019-06-01] MEDS: FUROSEMIDE 20 MG TABLET PO SCH ×2 (10:14→10:23)
[2019-06-01] MEDS: MULTIVITAMIN TABLET PO SCH (10:14)
[2019-06-01] MEDS: DIGOXIN 0.125 MG TABLET PO SCH (10:15)
[2019-06-01] MEDS: SACUBITRIL/VALSARTAN 24 MG/26 MG TABLET PO SCH ×2 (10:15→22:43)
--- NOTE | 2019-06-01 10:28 | Progress Note ---
Provider Note Provider Note: Patient seen at the request of hospitalist Dr. Singh. Patient has known history of cardiomyopathy, valvular heart disease. Patient was admitted with exacerbation of CHF. Patient was noted to have irregular heart rhythm. I was asked to evaluate her heart rhythm. Review of multiple strips suggest that patient mostly has short runs of multifocal atrial tachycardia and has frequent APCs. Cannot rule out very short runs of atrial fibrillation but feels that is unlikely. Digoxin level is over 1 pg/mL. Sometimes even at this level digoxin can cause atrial arrhythmias. Have therefore opted to reduce the digoxin dose. Due to history of cardiomyopathy and CHF, have added small dose of carvedilol. Hopefully patient will able to tolerate this. I note that her blood pressure is on the low side. Continue with Entresto. Have ordered a 2D echo since on auscultation it seems patient mitral regurgitation murmur is more prominent. Due to medication changes, it may be worthwhile to hold the patient over today just to observe the effects. Patient seems also quite a bit debilitated. A full report to follow. It may be worthwhile to try to get her potassium up to over 4 and maintain magnesium in normal range. As usual I thank Dr. Singh very much for the kind referral.
[2019-06-01] MEDS ORDERED: FUROSEMIDE 20 MG TABLET PO SCH (11:00)
[2019-06-01] MEDS: CARVEDILOL 3.125 MG TABLET PO SCH ×2 (12:22→22:38)
[2019-06-01 16:04] LABS: POTASSIUM 4.2 mmol/L (3.6-5.0)
--- NOTE | 2019-06-01 16:14 | PDOC PROGRESS REPORT ---
Subjective Progress Note for:: 06/01/19 Subjective:: RADHA LAGUERRE is a 74 year old female who presented emergency room with a 2-day history of dyspnea. Patient admits gradually worsening dyspnea over the last 2 days, worsened by exertion, accompanied by a nonproductive cough and associated with orthopnea and swelling in her legs. Her dyspnea has been constant and has become severe today. She denies other associated or accompanying signs and symptoms. She admits having discontinued her Lasix for the last 2 days because it causes frequent nocturnal urination. She admits prior similar symptoms on numerous occasions related to her CHF and COPD. She has not identified any additional aggravating or ameliorating factors for her dyspnea. In the emergency room she was found to have acute hypoxic respiratory failure requiring supplemental oxygen to maintain adequate oxygen saturation greater than 90%. Additionally she was noted to have an elevated BNP at 16,500 and a chest x-ray which showed bilateral pleural effusions with a large right pleural effusion and a questionable multifocal pneumonia in the bases. She was subsequently admitted to the hospital for further evaluation and treatment after IV antibiotics were initiated in the emergency room. 05/30/2019. No acute events overnight. Patient comfortably resting in bed no apparent distress stating that she is feeling much better than yesterday, denies any fever, chills, nausea, vomiting, diarrhea, constipation or urinary symptoms. Patient would like to be transitioned back to home, stating that she has good support at home and does not need any home health or nursing. 05/31/2019. No acute events overnight. Patient reporting significant im provement of her symptoms, has any fever, chills, nausea, vomiting, diarrhea, constipation or any urinary symptoms. Could potentially be discharged home however patient has 1+ blood culture pending sensitivity. 06/01/2019. No acute events overnight. Denies any fever, chills, nausea, vomiting, diarrhea, constipation or any urinary symptoms. Patient was noted to have multiple episodes of PACs and cardiology consulted for further evaluation. Reason For Visit: ACUTE RESPIRATORY FAILURE WITH HYPOXIA,ACUTE ON Physical Exam Vital Signs: Temp Pulse Resp BP Pulse Ox 97.5 F 98 16 105/53 L 93 06/01/19 07:27 06/01/19 14:06 06/01/19 14:06 06/01/19 07:27 06/01/19 14:06 Intake & Output 05/31/19 06/01/19 06/02/19 06:59 06:59 06:59 Intake Total 472 1065 312 Output Total 2515 1300 250 Balance -2002 225 Weight 59.4 kg 59 kg General appearance: PRESENT: no acute distress, well-developed, well-nourished Head exam: PRESENT: atraumatic, normocephalic Respiratory exam: PRESENT: clear to auscultation glory. ABSENT: rales, rhonchi, wheezes Cardiovascular exam: PRESENT: RRR. ABSENT: diastolic murmur, rubs, systolic murmur GI/Abdominal exam: PRESENT: normal bowel sounds, soft. ABSENT: distended, guarding, mass, organolmegaly, rebound, tenderness Extremities exam: PRESENT: full ROM. ABSENT: calf tenderness, clubbing, pedal edema Neurological exam: PRESENT: alert, awake, oriented to person, oriented to place, oriented to time, oriented to situation, CN II-XII grossly intact. ABSENT: motor sensory deficit Results Laboratory Results: 05/31/19 03:05 06/01/19 15:31 06/01/19 15:31 Potassium 4.2 Magnesium 1.9 05/29/19 18:00 Blood Blood Culture (PCR) - Final Staphylococcus Species 05/29/19 05/29/19 05/29/19 16:44 23:27 23:27 Creatine Kinase 91 CK-MB (CK-2) 4.87 H Troponin I 0.062 0.057 NT-Pro-B Natriuret Pep 88125 H 05/30/19 05/30/19 05:19 05:19 Creatine Kinase 71 CK-MB (CK-2) 3.36 Troponin I 0.048 NT-Pro-B Natriuret Pep Impressions: Chest X-Ray 05/29/19 15:52 IMPRESSION: Moderate right pleural effusion and small left effusion. Left lower lobe infiltrate consistent with pneumonia. Probable underlying atelectasis pneumonia in the right base as well. Assessment and Plan - Diagnosis (1) Acute respiratory failure with hypoxia Is this a current diagnosis for this admission?: Yes Plan: Improving. Back to baseline. SPO2 WNL on 1.5 L. Multifactorial, likely due to acute CHF exacerbation, community acquired pneumonia complicated by history of CHF and COPD. Supplemental oxygen, duo nebs, LABA, LABA, empiric IV antibiotics, BiPAP (2) Pneumonia Qualifiers: Pneumonia type: due to unspecified organism Laterality: right Lung location: lower lobe of lung Qualified Code(s): J18.9 - Pneumonia, unspecified organism Is this a current diagnosis for this admission?: Yes Plan: Afebrile, no leukocytosis however chest x-ray positive for right lower lobe infiltrate given history of multiple comorbidities will treat with empiric IV antibiotics. Day 4 IV antibiotics. Day 4 IV ceftriaxone. Received 4 days of IV azithromycin. Continue empiric IV antibiotics. Follow-up cultures. (3) Acute on chronic systolic congestive heart failure Is this a current diagnosis for this admission?: Yes Plan: Improving. Euvolemic. No JVD. Likely due to underlying pneumonia and medical noncompliance. Patient stated that she has not been taking her Lasix recently to avoid waking up. Presented with orthopnea, paroxysmal nocturnal dyspnea. proBNP 16,500, baseline 8-10,000. 2D echo 10/27/2018 LVEF 55%. Cardiac diet, fluid restriction, Entresto, digoxin, IV Lasix. (4) Hypertension Qualifiers: Hypertension type: essential hypertension Qualified Code(s): I10 - Essential (primary) hypertension Is this a current diagnosis for this admission?: Yes Plan: Home meds are Entresto, Lasix, digoxin. Marginal BPs. Patient is stating that her BP runs in low 90s at home. Continue Entresto, continue digoxin, continue Lasix 20 mg p.o. every 48 hours. Monitor vitals. Adjust meds as needed. Outpatient PCP follow-up. (5) Hypothyroidism Qualifiers: Hypothyroidism type: unspecified Qualified Code(s): E03.9 - Hypothyroidism, unspecified Is this a current diagnosis for this admission?: Yes Plan: TSH WNL. Restart home meds. (6) Obstructive sleep apnea Is this a current diagnosis for this admission?: Yes Plan: Continue nocturnal BiPAP. (7) Pleural effusion Is this a current diagnosis for this admission?: Yes Plan: Persistent pleural effusion most likely due to underlying CHF. Plan as per above. (8) Diabetes mellitus type 2 in nonobese Is this a current diagnosis for this admission?: Yes Plan: Ruled out. Hemoglobin A1c 4.6- 5.1%. As per patient she does not have diabetes and is not on antidiabetic meds and wants her Accu-Chek to be DC'd. Outpatient PCP follow-up. (9) Gram-positive bacteremia Is this a current diagnosis for this admission?: Yes Plan: Blood cultures 1 out of 4 bottles growing gram-positive cocci in clusters, coag negative ending sensitivity. This is most likely contamination. Continue empiric IV antibiotics. Repeat blood culture. Follow-up C&S.
[2019-06-01] MEDS: CEFTRIAXONE 1 GM/D5W RTU 1 GM/50 ML RTUPB IV SCH (17:51)
--- NOTE | 2019-06-01 18:38 | XCELERA REPORT ---
[address] [address] Transthoracic Echocardiogram Report Name: RADHA LAGUERRE Age: 74 yrs Gender: Female : 1945 Patient Status: Inpatient Patient Location: [address] [place] [address] Study Date: 06/01/2019 11:47 AM Height: 62 in Weight: 130 lb BSA: 1.6 m2 Procedure: A complete two-dimensional transthoracic echocardiogram was performed (2D, M-mode, spectral and color flow Doppler). The study was technically adequate with some images being suboptimal in quality. Reason For Study: irregular HR Ordering Physician: JUNIOR RICCI Performed By: Ranjana Orodnez Interpretation Summary The Ejection Fraction estimate is 45-50% Left ventricular systolic function is mildly reduced. There is moderate concentric left ventricular hypertrophy. The left ventricle is grossly normal size. Doppler measurements suggest reversible restrictive left ventricular relaxation, which is associated with grade III/IV or moderate diastolic dysfunction Wall motion cannot be accurately commented on, but no definite regional wall motion abnormalities noted. The right ventricular systolic function is normal. The left atrium is severely dilated. The right atrium is normal in size There is a mild amount of mitral regurgitation There is no mitral valve stenosis. There is a mild amount of aortic regurgitation There is mild aortic stenosis There is a mild amount of tricuspid regurgitation There is moderate pulmonary hypertension by echo Right ventricular systolic pressure is estimated to be elevated at 50-60mmHg. Best estimated right ventricular systolic pressure is elevated at 40-50mmHg. The aortic root is not well visualized. The inferior vena cava appeared normal and decreased > 50% with respiration (RAP 5-10 mmHg) Minimal pericardial effusion. Small right pleural effusion. Moderate size left pleural effusion. MMode/2D Measurements & Calculations RVDd: 2.4 cm LVIDd: 4.3 cm FS: 20.9 % Ao root diam: 2.7 cm IVSd: 1.7 cm LVIDs: 3.4 cm EDV(Teich): 84.5 ml Ao root area: LVPWd: 1.5 cm ESV(Teich): 48.4 ml 5.8 cm2 EF(Teich): 42.7 % LVOT diam: 2.0 cm EDV(MOD-sp4): SV(MOD-sp4): LVOT area: 58.4 ml 18.1 ml 3.3 cm2 ESV(MOD-sp4): 40.3 ml EF(MOD-sp4): 31.0 % Doppler Measurements & Calculations MV E max ludmila: MV dec slope: Ao V2 max: AI max ludmila: 74.7 cm/sec 228.0 cm/sec 466.0 cm/sec 563.0 cm/sec2 Ao max PG: AI max P.9 mmHg MV dec time: 20.8 mmHg AI dec slope: 0.13 sec ROSALIE(V,D): 0.94 cm2 284.9 cm/sec2 AI P1/2t: 479.1 msec LV V1 max PG: PA V2 max: PI max ludmila: TR max ludmila: 1.7 mmHg 110.1 cm/sec 143.7 cm/sec 311.2 cm/sec LV V1 max: PA max P.8 mmHg PI max PG: TR max P.9 mmHg 65.9 cm/sec 8.3 mmHg Left Ventricle The left ventricle is grossly normal size. There is moderate concentric left ventricular hypertrophy. Left ventricular systolic function is mildly reduced. The Ejection Fraction estimate is 45-50%. Doppler measurements suggest reversible restrictive left ventricular relaxation, which is associated with grade III/IV or moderate diastolic dysfunction. Wall motion cannot be accurately commented on, but no definite regional wall motion abnormalities noted. Right Ventricle The right ventricle is grossly normal size. There is normal right ventricular wall thickness. The right ventricular systolic function is normal. Atria The right atrium is normal in size. The left atrium is severely dilated. Interarterial septum not well visualized and not well dopplered. Cannot comment on ASD/PFO presence. Mitral Valve The mitral valve leaflets are sclerotic, but show no functional abnormalities. There is no mitral valve stenosis. There is a mild amount of mitral regurgitation. Aortic Valve The aortic valve is sclerotic and shows some degree of functional abnormality. There is mild aortic stenosis. There is a mild amount of aortic regurgitation. Tricuspid Valve The tricuspid valve is not well visualized, but is grossly normal. There is no tricuspid stenosis. There is a mild amount of tricuspid regurgitation. There is moderate pulmonary hypertension by echo. Right ventricular systolic pressure is estimated to be elevated at 50-60mmHg. Best estimated right ventricular systolic pressure is elevated at 40-50mmHg. Pulmonic Valve The pulmonic valve is not well visualized. Great Vessels The aortic root is not well visualized. The inferior vena cava appeared normal and decreased > 50% with respiration (RAP 5-10 mmHg). Effusions Minimal pericardial effusion. Small right pleural effusion. Moderate size left pleural effusion. : JUNIOR RICCI Shyamal
[2019-06-01] MEDS: ATORVASTATIN CALCIUM 20 MG TABLET PO SCH (22:38)
[2019-06-01] MEDS: MELATONIN 5 MG TABLET PO PRN (22:38)
[2019-06-01] MEDS: MONTELUKAST SODIUM 10 MG TABLET PO SCH (22:38)
[2019-06-01] MEDS: LORAZEPAM INJ 2 MG/1 ML VIAL IV PRN (22:40)
[2019-06-02] MEDS: VANCOMYCIN HCL 1,250 MG in DEXTROSE 5%-WATER 250 ML IV SCH (05:37)
[2019-06-02] MEDS: PANTOPRAZOLE SODIUM 40 MG TABLET.DR PO SCH (05:37)
[2019-06-02] MEDS: HEPARIN SOD (PORCINE) 5,000 UNIT/ML 1 ML VIAL SUBCUT SCH ×2 (05:37→15:47)
[2019-06-02] MEDS: LEVOTHYROXINE SODIUM 0.1 MG TABLET PO SCH (05:37)
[2019-06-02 06:38] LABS: BLOOD UREA NITROGEN 19 mg/dL (7-20); CHLORIDE 104 mmol/L (98-107); GLUCOSE 85 mg/dL (75-110); POTASSIUM 3.9 mmol/L (3.6-5.0)
[2019-06-02 06:43] LABS: CARBON DIOXIDE 33 mmol/L (22-30)
[2019-06-02 06:44] LABS: ANION GAP 2 (5-19)
[2019-06-02] MEDS: DIGOXIN 0.125 MG TABLET PO SCH ×2 (09:25→12:29)
[2019-06-02] MEDS: ASPIRIN 81 MG TABLET, ENT COATED PO SCH (09:33)
[2019-06-02] MEDS: MULTIVITAMIN TABLET PO SCH (09:34)
[2019-06-02] MEDS: CARVEDILOL 3.125 MG TABLET PO SCH ×2 (09:35→15:45)
[2019-06-02] MEDS: SACUBITRIL/VALSARTAN 24 MG/26 MG TABLET PO SCH ×2 (09:35→15:47)
[2019-06-02] MEDS: FLUTICASONE/VILANTEROL 100-25 MCG/DOSE IH SCH (09:36)
[2019-06-02] MEDS: BUSPIRONE HCL 10 MG TABLET PO SCH ×2 (09:39→17:50)
[2019-06-02] MEDS: ESCITALOPRAM OXALATE 10 MG TABLET PO SCH (09:41)
[2019-06-02] MEDS: DOCUSATE SODIUM 100 MG CAPSULE PO SCH (09:42)
[2019-06-02] MEDS: NITROGLYCERIN 2% OINTMENT 1 GM PACKET TP SCH ×3 (09:47→17:47)
--- NOTE | 2019-06-02 12:57 | EKG REPORT ---
SEVERITY:- ABNORMAL ECG - PROBABLE SINUS, CAN NOT R/O A FLUTTER MULTIFORM VENTRICULAR PREMATURE COMPLEXES NONSPECIFIC IVCD WITH LAD LVH WITH SECONDARY REPOLARIZATION ABNORMALITY : Confirmed by: Junior Werner 02-Jun-2019 12:57:05
[2019-06-02] MEDS: CEFTRIAXONE 1 GM/D5W RTU 1 GM/50 ML RTUPB IV SCH (17:50)
[2019-06-02 18:53] VITALS: BP 102/79
--- NOTE | 2019-06-04 14:53 | PDOC DISCHARGE SUMMARY ---
Impression - Admit/DC Date/PCP Admission Date/Primary Care Provider: 05/29/19 20:39 WENDY DAVILA MD Discharge Date: 06/04/19 - Discharge Diagnosis (1) Acute respiratory failure with hypoxia Is this a current diagnosis for this admission?: Yes (2) Pneumonia Is this a current diagnosis for this admission?: Yes (3) Acute on chronic systolic congestive heart failure Is this a current diagnosis for this admission?: Yes (4) Hypertension Is this a current diagnosis for this admission?: Yes (5) Hypothyroidism Is this a current diagnosis for this admission?: Yes (6) Obstructive sleep apnea Is this a current diagnosis for this admission?: Yes (7) Pleural effusion Is this a current diagnosis for this admission?: Yes (8) Diabetes mellitus type 2 in nonobese Is this a current diagnosis for this admission?: Yes (9) Gram-positive bacteremia Is this a current diagnosis for this admission?: Yes - Additional Information Resuscitation Status: Full Code Discharge Diet: As Tolerated Discharge Activity: Activity As Tolerated, Balance Activity w/Rest Referrals: WENDY DAVILA MD [Primary Care Provider] - 06/14/19 2:00 pm SILVIA RICCI MD [ACTIVE STAFF] - 06/06/19 1:15 pm Prescriptions: Digoxin [Lanoxin 0.125 mg Tablet] 0.0625 mg PO DAILY 30 Days #15 tablet Furosemide [Lasix 20 mg Tablet] 10 mg PO QAM 30 Days #15 tablet Home Medications: Buspirone HCl [Buspar 15 mg Tablet] 15 mg PO Q12 07/21/18 Escitalopram Oxalate [Lexapro] 20 mg PO DAILY 07/21/18 Levothyroxine Sodium [Synthroid 0.1 mg Tablet] 0.125 mg PO Q6AM 07/21/18 Pantoprazole Sodium [Protonix [address] Tablet] 40 mg PO QAM 07/21/18 Aspirin [Ecotrin 81 mg EC Tablet] 81 mg PO DAILY 05/29/19 Atorvastatin Calcium [Lipitor 20 mg Tablet] 20 mg PO QHS 05/29/19 Multivitamin [Tab-A-Ren (Multiple Vitamin) Tablet] 1 tab PO DAILY 05/29/19 Sacubitril/Valsartan [Entresto 24 mg/26 mg Tablet] 1 tbs PO Q12 05/29/19 Digoxin [Lanoxin 0.125 mg Tablet] 0.0625 mg PO DAILY 30 Days #15 tablet 06/02/19 Furosemide [Lasix 20 mg Tablet] 10 mg PO QAM 30 Days #15 tablet 06/02/19 History of Present Illiness History of Present Illness: RADHA LAGUERRE is a 74 year old female who presented emergency room with a 2-day history of dyspnea. Patient admits gradually worsening dyspnea over the last 2 days, worsened by exertion, accompanied by a nonproductive cough and associated with orthopnea and swelling in her legs. Her dyspnea has been constant and has become severe today. She denies other associated or accompanying signs and symptoms. She admits having discontinued her Lasix for the last 2 days because it causes frequent nocturnal urination. She admits prior similar symptoms on numerous occasions related to her CHF and COPD. She has not identified any additional aggravating or ameliorating factors for her dyspnea. In the emergency room she was found to have acute hypoxic respiratory failure requiring supplemental oxygen to maintain adequate oxygen saturation greater than 90%. Additionally she was noted to have an elevated BNP at 16,500 and a chest x-ray which showed bilateral pleural effusions with a large right pleural effusion and a questionable multifocal pneumonia in the bases. She was subsequently admitted to the hospital for further evaluation and treatment after IV antibiotics were initiated in the emergency room. Hospital Course Hospital Course: (1) Acute respiratory failure with hypoxia Back to baseline. SPO2 WNL on 1.5 L. Multifactorial, likely due to acute CHF exacerbation, community acquired pneumonia complicated by history of CHF and COPD. Supplemental oxygen, duo nebs, LABA, LABA, empiric IV antibiotics, BiPAP (2) Pneumonia Afebrile, no leukocytosis however chest x-ray positive for right lower lobe infiltrate given history of multiple comorbidities will treat with empiric IV antibiotics. Received 5 days of IV antibiotics. Received 5 days of IV ceftriaxone. Received 4 days of IV azithromycin. Continue empiric IV antibiotics. Follow-up cultures. (3) Acute on chronic systolic congestive heart failure Euvolemic. No JVD. Likely due to underlying pneumonia and medical noncompliance. Patient stated that she has not been taking her Lasix recently to avoid waking up. Presented with orthopnea, paroxysmal nocturnal dyspnea. proBNP 16,500, baseline 8-10,000. 2D echo 10/27/2018 LVEF 55%. Started on cardiac diet, fluid restriction, Entresto, digoxin, Lasix. Was started on low dose carvedilol by cardiology however noted to have marginal BPs. Patient was asked to hold her carvedilol until seen by Dr. Ricci analyst as outpatient. (4) Hypertension Home meds are Entresto, Lasix, digoxin. Marginal BPs. Patient is stating that her BP runs in low 90s at home. Was started on Entresto, continue digoxin, continue Lasix 20 mg p.o. every 48 hours. Monitor vitals. Adjust meds as needed. Outpatient PCP follow-up. (5) Hypothyroidism TSH WNL. Restart home meds. (6) Obstructive sleep apnea Continue nocturnal BiPAP. (7) Pleural effusion Persistent pleural effusion most likely due to underlying CHF. Plan as per above. (8) Diabetes mellitus type 2 in nonobese Ruled out. Hemoglobin A1c 4.6- 5.1%. As per patient she does not have diabetes and is not on antidiabetic meds and wants her Accu-Chek to be DC'd. Outpatient PCP follow-up. (9) Gram-positive bacteremia Blood cultures 1 out of 4 bottles growing gram-positive cocci in clusters, coag negative ending sensitivity. This is most likely contamination. Repeat blood cultures remain negative. Was started on empiric vancomycin. Physical Exam Vital Signs: Temp Pulse Resp BP Pulse Ox 98.0 F 99 17 102/79 97 06/02/19 18:48 06/02/19 18:48 06/02/19 18:48 06/02/19 18:48 06/02/19 18:48 Intake & Output 06/03/19 06/04/19 06/05/19 06:59 06:59 06:59 Intake Total 562 Output Total 1100 Balance -538 General appearance: PRESENT: no acute distress, well-developed, well-nourished Head exam: PRESENT: atraumatic, normocephalic Respiratory exam: PRESENT: clear to auscultation glory. ABSENT: rales, rhonchi, wheezes Cardiovascular exam: PRESENT: RRR. ABSENT: diastolic murmur, rubs, systolic murmur Extremities exam: PRESENT: full ROM. ABSENT: calf tenderness, clubbing, pedal edema Neurological exam: PRESENT: alert, awake, oriented to person, oriented to place, oriented to time, oriented to situation, CN II-XII grossly intact. ABSENT: motor sensory deficit Results Laboratory Results: WBC 5.8 10^3/uL (4.0-10.5) 05/31/19 03:05 RBC 3.91 10^6/uL (3.72-5.28) 05/31/19 03:05 Hgb 12.1 g/dL (12.0-15.5) 05/31/19 03:05 Hct 36.2 % (36.0-47.0) 05/31/19 03:05 MCV 92 fl (80-97) 05/31/19 03:05 MCH 30.8 pg (27.0-33.4) 05/31/19 03:05 MCHC 33.3 g/dL (32.0-36.0) 05/31/19 03:05 RDW 13.7 % (11.5-14.0) 05/31/19 03:05 Plt Count 165 10^3/uL (150-450) 05/31/19 03:05 Lymph % (Auto) 35.5 % (13-45) 05/31/19 03:05 Sumner % (Auto) 12.2 % (3-13) 05/31/19 03:05 Eos % (Auto) 3.8 % (0-6) 05/31/19 03:05 Baso % (Auto) 0.9 % (0-2) 05/31/19 03:05 Absolute Neuts (auto) 2.8 10^3/uL (1.7-8.2) 05/31/19 03:05 Absolute Lymphs (auto) 2.1 10^3/uL (0.5-4.7) 05/31/19 03:05 Absolute Monos (auto) 0.7 10^3/uL (0.1-1.4) 05/31/19 03:05 Absolute Eos (auto) 0.2 10^3/uL (0.0-0.6) 05/31/19 03:05 Absolute Basos (auto) 0.1 10^3/uL (0.0-0.2) 05/31/19 03:05 Seg Neutrophils % 47.6 % (42-78) 05/31/19 03:05 Sodium 138.7 mmol/L (137-145) 06/02/19 05:39 Potassium 3.9 mmol/L (3.6-5.0) 06/02/19 05:39 Chloride 104 mmol/L (98-107) 06/02/19 05:39 Carbon Dioxide 33 mmol/L (22-30) H 06/02/19 05:39 Anion Gap 2 (5-19) L 06/02/19 05:39 BUN 19 mg/dL (7-20) 06/02/19 05:39 Creatinine 0.64 mg/dL (0.52-1.25) 06/02/19 05:39 Est GFR ( Amer) > 60 (>60) 06/02/19 05:39 Est GFR (Non-Af Amer) Cancelled 05/31/19 03:05 Est GFR (MDRD) Non-Af > 60 (>60) 06/02/19 05:39 Glucose 85 mg/dL (75-110) 06/02/19 05:39 Hemoglobin A1c % 5.1 % (4.7-6.0) 05/30/19 05:19 Calcium 8.0 mg/dL (8.4-10.2) L 06/02/19 05:39 Magnesium 2.0 mg/dL (1.6-2.3) 06/02/19 05:39 Total Bilirubin 0.8 mg/dL (0.2-1.3) 05/29/19 16:44 Direct Bilirubin 0.0 mg/dL (0.0-0.4) 05/29/19 16:44 Neonat Total Bilirubin Not Reportable 05/29/19 16:44 Neonat Direct Bilirubin Not Reportable 05/29/19 16:44 Neonat Indirect Bili Not Reportable 05/29/19 16:44 AST 50 U/L (14-36) H 05/29/19 16:44 ALT 25 U/L (<35) 05/29/19 16:44 Alkaline Phosphatase 100 U/L (38-126) 05/29/19 16:44 Creatine Kinase 71 U/L (30-135) 05/30/19 05:19 CK-MB (CK-2) 3.36 ng/mL (<4.55) 05/30/19 05:19 Troponin I 0.048 ng/mL 05/30/19 05:19 NT-Pro-B Natriuret Pep 10603 pg/mL (<125) H 05/29/19 16:44 Total Protein 5.9 g/dL (6.3-8.2) L 05/29/19 16:44 Albumin 2.9 g/dL (3.5-5.0) L 05/29/19 16:44 Triglycerides 68 mg/dL (<150) 05/30/19 05:19 Cholesterol 104.83 mg/dL (0-200) 05/30/19 05:19 LDL Cholesterol Direct 42 mg/dL (<100) 05/30/19 05:19 VLDL Cholesterol 14.0 mg/dL (10-31) 05/30/19 05:19 HDL Cholesterol 56 mg/dL (>40) 05/30/19 05:19 EGFR Cancelled 05/31/19 03:05 TSH 3.49 uIU/mL (0.47-4.68) 05/30/19 05:19 Digoxin 1.14 ng/mL (0.8-2.0) 06/01/19 05:23 05/29/19 05/29/19 05/30/19 16:44 23:27 05:19 CK-MB (CK-2) 4.87 H 3.36 Troponin I 0.062 0.057 0.048 NT-Pro-B Natriuret Pep 05770 H Impressions: Chest X-Ray 05/29/19 15:52 IMPRESSION: Moderate right pleural effusion and small left effusion. Left lower lobe infiltrate consistent with pneumonia. Probable underlying atelectasis pneumonia in the right base as well. Stroke Is this a Stroke Patient?: No Acute Heart Failure - Is this a Heart Failure Patient?: No
--- NOTE | 2019-06-05 10:57 | PDOC PROGRESS REPORT ---
Subjective Progress Note for:: 06/02/19 Subjective:: Patient seems to be doing better with gradual improvement. Pt is denying any chest arm or neck discomfort. Patient denying any PND, orthopnea. Patient denied any sustained palpitations, dizziness, syncope, near syncope. Patient denying any fever chills. Patient denying any other significant discomfort. Patient is maintaining sinus rhythm. Review of systems: Rest review of systems negative. Medications: Medications have been reviewed. Reason For Visit: ACUTE RESPIRATORY FAILURE WITH HYPOXIA,ACUTE ON Physical Exam Vital Signs: Temp Pulse Resp BP Pulse Ox 98.0 F 99 17 102/79 97 06/02/19 18:48 06/02/19 18:48 06/02/19 18:48 06/02/19 18:48 06/02/19 18:48 Exam: GENERAL: well-nourished and in no acute distress. Alert and oriented x3 HEAD: Atraumatic, normocephalic. EYES: SATURNINO, sclera anicteric, conjunctiva are normal. ENT: Moist mucous membranes. No oral ulcerations or bleeding gums noted. No obvious ear, nose or throat abnormalities noted. NECK: supple without lymphadenopathy. Trachea is central. No cervical or axillary lymphadenopathy noted. Carotids are 2+, JVD WNL LUNGS: Breath sounds clear bilaterally. No wheezes rales or rhonchi noted. No significant dullness noted on percussion. CHEST: Palpation of the chest wall shows no significant chest wall tenderness. HEART: [place] [employer], No PSH, 1/6 EUN aortic area, 1/6 alexandre systolic murmur mitral area, no rubs, no gallops. ABDOMEN: Soft, no significant tenderness appreciated, normoactive bowel sounds. No guarding, no rebound. No rigidity noted . No masses appreciated. EXTREMITIES: Pedal pulses are 1-2+, no calf tenderness noted. No clubbing or cyanosis. negative pedal edema noted NEUROLOGICAL: Focused neurological exam showed no significant neurologic deficit. Normal speech, no focal weakness appreciated. PSYCH: Normal mood, normal affect. Judgment and insight within normal limits. SKIN: No significant ecchymosis, skin is noted to be warm. MUSCULOSKELETAL EXAM: No significant acute joint swelling noted. Results Laboratory Results: 05/31/19 03:05 06/02/19 05:39 05/31/19 08:26 Blood Blood Culture - Final NO GROWTH IN 5 DAYS 05/31/19 08:35 Blood Blood Culture - Final NO GROWTH IN 5 DAYS 05/29/19 05/29/19 05/29/19 16:44 23:27 23:27 Creatine Kinase 91 CK-MB (CK-2) 4.87 H Troponin I 0.062 0.057 NT-Pro-B Natriuret Pep 56484 H 05/30/19 05/30/19 05:19 05:19 Creatine Kinase 71 CK-MB (CK-2) 3.36 Troponin I 0.048 NT-Pro-B Natriuret Pep EKG Comments: Probable sinus with frequent APCs. Cannot rule out short runs of A. fib. Impressions: Chest X-Ray 05/29/19 15:52 IMPRESSION: Moderate right pleural effusion and small left effusion. Left lo wer lobe infiltrate consistent with pneumonia. Probable underlying atelectasis pneumonia in the right base as well. Assessment & Plan - Diagnosis (1) Cardiac arrhythmia, unspecified Qualifiers: Arrhythmia type: unspecified cardiac arrhythmia Qualified Code(s): I49.9 - Cardiac arrhythmia, unspecified Is this a current diagnosis for this admission?: Yes (2) Acute exacerbation of CHF (congestive heart failure) Qualifiers: Heart failure type: combined systolic and diastolic Qualified Code(s): I50.43 - Acute on chronic combined systolic (congestive) and diastolic (congestive) heart failure Is this a current diagnosis for this admission?: Yes (3) Acute hypoxemic respiratory failure Is this a current diagnosis for this admission?: Yes (4) Diabetes mellitus type 2 in nonobese Is this a current diagnosis for this admission?: Yes (5) Hypertension Qualifiers: Hypertension type: essential hypertension Qualified Code(s): I10 - Essential (primary) hypertension Is this a current diagnosis for this admission?: Yes (6) Chronic obstructive pulmonary disease Qualifiers: Emphysema type: unspecified Is this a current diagnosis for this admission?: Yes - Notes Notes: Cardiac arrhythmia unspecified: Patient noted to have cardiac arrhythmia most likely frequent APCs, short multifocal atrial tachycardia run, possible short atrial fibrillation. Patient however at risk for chronic atrial fibrillation. It seems on review of chart, patient has a history of it. Patient may need further evaluation as an outpatient with a cardiac event monitor and this will be scheduled. Congestive heart failure: Acute on chronic, systolic plus diastolic, currently seems well compensated. Continue baseline diuretic therapy, optimize therapy with KENNETH inhibitor/ARB/ARNI agents beta-gillian etc. as tolerated. Acute hypoxic respiratory failure: Possible combination of COPD, emphysema and CHF. Continue oxygen supplementation. Patient may benefit for evaluation for nocturnal need of oxygen supplementation. This can be performed as an outpatient. COPD: Currently stable. Patient was noted to have significant diastolic dysfunction. Therefore she underwent a test to evaluate for possible cardiac amyloidosis. This was just borderline abnormal. Further follow-up as an outpatient. - Time Time with patient: Greater than 35 minutes Medications reviewed and adjusted accordingly: Yes
--- NOTE | 2019-06-05 11:03 | PDOC PROGRESS REPORT ---
Subjective Progress Note for:: 06/01/19 Subjective:: Late entry for visit on 06/01/2019. Patient was seen at the request of hospitalist to evaluate for cardiac dysrhythmia. Patient's old charts were reviewed. Pt is denying any chest arm or neck discomfort. Patient denying any PND, orthopnea. Patient denied any sustained palpitations, dizziness, syncope, near syncope. Patient denying any fever chills. Patient denying any other significant discomfort. Patient is noted to be mostly in sinus rhythm with frequent APCs, possible short multifocal atrial tachycardia PHYSICAL EXAM: GENERAL: well-nourished and in no acute distress. Alert and oriented x3 HEAD: Atraumatic, normocephalic. EYES: SATURN[place], sclera anicteric, conjunctiva are normal. ENT: Moist mucous membranes. No oral ulcerations or bleeding gums noted. No obvious ear, nose or throat abnormalities noted. NECK: supple without lymphadenopathy. Trachea is central. No cervical or axillary lymphadenopathy noted. Carotids are 2+, JVD WNL LUNGS: Breath sounds bibasilar fine crackles are noted.. No wheezes rales or rhonchi noted. No significant dullness noted on percussion. CHEST: Palpation of the chest wall shows no significant chest wall tenderness. HEART: [place] [facility], No PSH, 1/6 EUN aortic area, 1/6 alexandre systolic murmur mitral area, no rubs, no gallops. ABDOMEN: Soft, no significant tenderness appreciated, normoactive bowel sounds. No guarding, no rebound. No rigidity noted . No masses appreciated. EXTREMITIES: Pedal pulses are 1-2+, no calf tenderness noted. No clubbing or cyanosis. negative pedal edema noted NEUROLOGICAL: Focused neurological exam showed no significant neurologic deficit. Normal speech, no focal weakness appreciated. PSYCH: Normal mood, normal affect. Judgment and insight within normal limits. SKIN: No significant ecchymosis, skin is noted to be warm. MUSCULOSKELETAL EXAM: No significant acute joint swelling noted. Review of systems: Patient just seems debilitated. Cardiac system review as above. Rest review of systems negative, apart from history of COPD and shortness of breath on mild exertion, otherwise negative.. Medications: Medications have been reviewed. Labs: These were reviewed. EKG: Reviewed. Sinus rhythm with frequent APCs with nonspecific ST-T wave katarina nges. Reason For Visit: ACUTE RESPIRATORY FAILURE WITH HYPOXIA,ACUTE ON Physical Exam Vital Signs: Temp Pulse Resp BP Pulse Ox 98.0 F 99 17 102/79 97 06/02/19 18:48 06/02/19 18:48 06/02/19 18:48 06/02/19 18:48 06/02/19 18:48 Results Laboratory Results: 05/31/19 03:05 06/02/19 05:39 05/31/19 08:26 Blood Blood Culture - Final NO GROWTH IN 5 DAYS 05/31/19 08:35 Blood Blood Culture - Final NO GROWTH IN 5 DAYS 05/29/19 05/29/19 05/29/19 16:44 23:27 23:27 Creatine Kinase 91 CK-MB (CK-2) 4.87 H Troponin I 0.062 0.057 NT-Pro-B Natriuret Pep [id number] H 05/30/19 05/30/19 05:19 05:19 Creatine Kinase 71 CK-MB (CK-2) 3.36 Troponin I 0.048 NT-Pro-B Natriuret Pep Impressions: Chest X-Ray 05/29/19 15:52 IMPRESSION: Moderate right pleural effusion and small left effusion. Left lower lobe infiltrate consistent with pneumonia. Probable underlying atelectasis pneumonia in the right base as well. Assessment & Plan - Diagnosis (1) Cardiac arrhythmia, unspecified Qualifiers: Arrhythmia type: unspecified cardiac arrhythmia Qualified Code(s): I49.9 - Cardiac arrhythmia, unspecified Is this a current diagnosis for this admission?: Yes (2) Acute exacerbation of CHF (congestive heart failure) Qualifiers: Heart failure type: combined systolic and diastolic Qualified Code(s): I50.43 - Acute on chronic combined systolic (congestive) and diastolic (congestive) heart failure Is this a current diagnosis for this admission?: Yes (3) Acute hypoxemic respiratory failure Is this a current diagnosis for this admission?: Yes (4) Diabetes mellitus type 2 in nonobese Is this a current diagnosis for this admission?: Yes (5) Hypertension Qualifiers: Hypertension type: essential hypertension Qualified Code(s): I10 - Essential (primary) hypertension Is this a current diagnosis for this admission?: Yes (6) Chronic obstructive pulmonary disease Qualifiers: Emphysema type: unspecified Is this a current diagnosis for this admission?: Yes - Notes Notes: Cardiac arrhythmia unspecified: Patient noted to have cardiac arrhythmia most likely frequent APCs, short multifocal atrial tachycardia run, possible short atrial fibrillation. Patient however at risk for chronic atrial fibrillation. It seems on review of chart, patient has a history of it. Patient may need further evaluation as an outpatient with a cardiac event monitor and this will be scheduled. Congestive heart failure: Acute on chronic, systolic plus diastolic, currently seems well compensated. Continue baseline diuretic therapy, optimize therapy with KENNETH inhibitor/ARB/ARNI agents beta-gillian etc. as tolerated. Acute hypoxic respiratory failure: Possible combination of COPD, emphysema and CHF. Continue oxygen supplementation. Patient may benefit for evaluation for nocturnal need of oxygen supplementation. This can be performed as an outpatient. COPD: Currently stable. Will follow patient closely for any abnormal heart rhythm. - Time Time with patient: Greater than 35 minutes - More than 50% of the time spent coordinating care, discussing management plans with involved caregivers. Management plans discussed with involved personnels. Medical decision making was of moderate to high complexity, patient's has multiple comorbidities. Medications reviewed and adjusted accordingly: Yes
== END 2019-06-02 19:30 | disposition home or self-care (01) | DRG 291 ==
LOC: ER 15:23 → EH 20:39 → 3S 05-30 02:58
PROVIDERS: ADMIT Emergency Medicine; ATTEND Emergency Medicine
PROC: 5A09457 Assistance with Respiratory Ventilation, 24-96 Consecutive Hours, Continuous Positive Airway Pressure (ICD-10-PCS; 2019-05-30)
PROC: 3E02340 Introduction of Influenza Vaccine into Muscle, Percutaneous Approach (ICD-10-PCS; principal; 2019-05-31)
DX: I11.0 Hypertensive heart disease with heart failure (principal); J96.01 Acute respiratory failure with hypoxia; J18.9 Pneumonia, unspecified organism; J44.0 Chronic obstructive pulmonary disease with (acute) lower respiratory infection; T50.1X6A Underdosing of loop [high-ceiling] diuretics, initial encounter; I48.91 Unspecified atrial fibrillation; I50.23 Acute on chronic systolic (congestive) heart failure; J44.9 Chronic obstructive pulmonary disease, unspecified; Z91.128 Patient's intentional underdosing of medication regimen for other reason; Y92.009 Unspecified place in unspecified non-institutional (private) residence as the place of occurrence of the external cause; E78.5 Hyperlipidemia, unspecified; E03.9 Hypothyroidism, unspecified; E66.9 Obesity, unspecified; K21.9 Gastro-esophageal reflux disease without esophagitis; G47.33 Obstructive sleep apnea (adult) (pediatric); I42.9 Cardiomyopathy, unspecified; Z90.49 Acquired absence of other specified parts of digestive tract; Z98.84 Bariatric surgery status; Z82.49 Family history of ischemic heart disease and other diseases of the circulatory system; Z83.3 Family history of diabetes mellitus; Z79.899 Other long term (current) drug therapy; Z88.5 Allergy status to narcotic agent; Z88.2 Allergy status to sulfonamides; Z85.72 Personal history of non-Hodgkin lymphomas; Z23 Encounter for immunization
CPT/HCPCS: 36415; 71046; 78466; 78803; 80048; 80053; 80061; 80162; 82550; 82553; 83036; 83735; 83880; 84132; 84443; 84484; 85025; 87040; 87077; 87150; 87186; 90686; 93005; 93010; 93306; 94660; 96365; 99285; A9538; J0696; J1644; J1940; J2060; J2270; J2550; J3370; J3490; J7060; J7614; Q9969